=== PATIENT | female | born 2005 | race African-American/Black ===

== ENCOUNTER 2024-07-11 02:01 | Emergency (ER) | payer OTHER, SELFPAY ==
[2024-07-11 02:06] VITALS: BP 139/85; PULSE 87; RESP 18; TEMP 36.9; O2SAT 100
[2024-07-11 02:39] LABS: BEDSIDEPREGUCG Negative (Negative)
[2024-07-11 02:45] LABS: Basophils Absolute Auto 0.1 K/mm3 (0.0-0.1); Eosinophils Absolute Auto 0.2 K/mm3 (0-0.3); Eosinophils Percent Auto 3.8 % (0-4.4); Hematocrit 39.8 % (37.0-47.0); Hemoglobin 12.7 g/dL (12.0-15.0); Immature Granulocyte Absolute 0.01 K/mm3 (0.00-0.031); Immature Granulocyte Percent A 0.2 % (0-0.5); Lymphocytes Absolute Auto 1.59 K/mm3 (0.9-3.2); Lymphocytes Percent Auto 33.3 % (18.3-44.2); Mean Corpuscular HGB Conc 31.9 g/dl (32-36); Mean Corpuscular Hemoglobin 26.9 pg (26-34); Mean Corpuscular Volume 84.3 fl (80-100); Mean Platelet Volume 10.5 fl (7.4-10.4); Monocytes Absolute Auto 0.4 K/mm3 (0.1-0.6); Monocytes Percent Auto 8.2 % (2.6-8.5); Neutrophils Absolute Auto 2.6 K/mm3 (1.3-6.7); Neutrophils Percent Auto 53.5 % (45.5-73.1); Platelet Count Result 333 k/mm3 (150-375); Red Blood Count 4.72 M/mm3 (4.2-5.4); Red Cell Distribution Width 11.5 % (11.5-14.5); White Blood Count 4.8 K/mm3 (4.5-10.0)
[2024-07-11 02:48] LABS: Bacteria Urine 1+ /hpf; Non Pathogenic Casts 0-2; RBC Urine >100 /hpf (0-2); Squamous Epithelial Cell Urine Moderate /hpf (Few)
[2024-07-11 02:55] LABS: Alanine Aminotransferase 17 U/L (6-35); Albumin Level 4.9 g/dL (3.7-5.6); Alkaline Phosphatase 84 U/L (45-116); Anion Gap 7 mmol/L (4-12); Aspartate Amino Transferase 24 U/L (14-36); Bilirubin,Total 0.4 mg/dL (0.2-1.3); Blood Urea Nitrogen 16 mg/dL (8-21); Calcium 9.5 mg/dL (8.9-10.7); Carbon Dioxide 25 mmol/L (22-30); Chloride 106 mmol/L (98-107); Estimated CRCL calculation 70 ml/min; Estimated Glomerular Filt Rate > 60; Glucose 111 mg/dL (65-110); Potassium 3.9 mmol/L (3.4-5.0); Sodium 138 mmol/L (134-143)
[2024-07-11 03:03] LABS: Add Urine Microscopic? YES; Appearance Urine Turbid (Clear); Bilirubin Urine Negative (Negative); Blood Urine 3+ (Negative); Color Urine Orange (Yellow); Glucose Urine UA Negative (Negative); Ketones Urine Negative (Negative); Leukocyte Esterase Ur 1+ LEU/UL (Negative); Nitrate Urine Negative (Negative); Protein Urine 1+ mg/dL (Negative); Specific Grav Ur 1.033 (1.001-1.035)
--- NOTE | 2024-07-11 03:36 | ED.GENADULT ---
HPI - General Adult General Chief complaint: Vaginal Bleeding Stated complaint: period for 2 weeks with lg blood clots Time Seen by Provider: 07/11/24 02:26 History of Present Illness HPI narrative: Patient is a 18-year-old female who presents emergency department with chief complaint of vaginal bleeding for the last 2 weeks. The patient reports that she has irregular periods reports that she is not currently on control pills and reports that she has had difficulty regulating her cycle patient denies syncope reports that she has been going through a pad about every hour the patient reports she does not have a head of visual merchandising Related Data Allergies Allergy/AdvReac Type Severity Reaction Status Date / Time No Known Allergies Allergy Verified 07/11/24 02:37 Review of Systems Review of Systems: A 10 system review of systems was completed on the patient and is negative except for what is stated in the HPI. Nursing and ancillary documentation was reviewed. Exam Narrative: GENERAL: Well-appearing, well-nourished, and in no acute distress. HEAD: Normocephalic, atraumatic. EYES: PERRLA and EOMI. ENT: Nares clear, no rhinorrhea or epistaxis. Mucous membranes moist. NECK: Supple. CHEST: Clear to auscultation. No respiratory distress. HEART: Regular rate and rhythm. No murmur heard. Normal peripheral pulses. ABDOMEN: Soft, nontender, nondistended, normal active bowel sounds. EXTREMITIES: Normal range of motion. No edema. SKIN: Warm, dry, no rash. NEURO: No focal deficits. Alert and oriented x3. PSYCH: Normal mood and affect. Course Vital Signs Vital signs: Vital Signs Temperature 36.9 C 07/11/24 02:06 Pulse Rate 87 07/11/24 02:06 Respiratory Rate 18 07/11/24 02:06 Blood Pressure 139/85 07/11/24 02:06 Pulse Oximetry 100 07/11/24 02:06 Oxygen Delivery Room Air 07/11/24 02:06 Temperature 36.9 C 07/11/24 02:06 Pulse Rate 87 07/11/24 02:06 Respiratory Rate 18 07/11/24 02:06 Blood Pressure 139/85 07/11/24 02:06 Pulse Oximetry 100 07/11/24 02:06 Oxygen Delivery Room Air 07/11/24 02:06 Medical Decision Making [place] Narrative Medical decision making narrative: Differential diagnosis includes threatened miscarriage, , miscarriage, dysfunctional uterine bleeding The patient's test was negative The patient's hemoglobin was 12.7 urinalysis showed no evidence of UTI Patient will be discharged home to follow-up with OBGYN Vital Signs Vital Signs: Vital Signs Temperature 36.9 C 07/11/24 02:06 Pulse Rate 87 07/11/24 02:06 Respiratory Rate 18 07/11/24 02:06 Blood Pressure 139/85 07/11/24 02:06 Pulse Oximetry 100 07/11/24 02:06 Oxygen Delivery Room Air 07/11/24 02:06 Temperature 36.9 C 07/11/24 02:06 Pulse Rate 87 07/11/24 02:06 Respiratory Rate 18 07/11/24 02:06 Blood Pressure 139/85 07/11/24 02:06 Pulse Oximetry 100 07/11/24 02:06 Oxygen Delivery Room Air 07/11/24 02:06 Lab Data 07/11/24 02:40 07/11/24 02:40 Labs: Lab Results 07/11/24 07/11/24 07/11/24 Range/Units 02:37 02:38 02:40 WBC 4.8 (4.5-10.0) K/mm3 RBC 4.72 (4.2-5.4) M/mm3 Hgb 12.7 (12.0-15.0) g/dL Hct 39.8 (37.0-47.0) % MCV 84.3 (80-100) fl MCH 26.9 (26-34) pg MCHC 31.9 L (32-36) g/dl RDW 11.5 (11.5-14.5) % Plt Count 333 (150-375) k/mm3 MPV 10.5 H (7.4-10.4) fl Immature Gran % (Auto) 0.2 (0-0.5) % Neut % (Auto) 53.5 (45.5-73.1) % Lymph % (Auto) 33.3 (18.3-44.2) % [place] % (Auto) 8.2 (2.6-8.5) % Eos % (Auto) 3.8 (0-4.4) % Baso % (Auto) 1.0 (0.2-1.2) % Lymph # (Auto) 1.59 (0.9-3.2) K/mm3 [place] # (Auto) 0.4 (0.1-0.6) K/mm3 Eos # (Auto) 0.2 (0-0.3) K/mm3 Baso # (Auto) 0.1 (0.0-0.1) K/mm3 Abs Immat Gran (auto) 0.01 (0.00-0.031) K/mm3 Absolute Neuts (auto) 2.6 (1.3-6.7) K/mm3 Absolute Nucleated RBC 0.000 (0.0-0.012) K/mm3 Nucleated RBC % 0.0 (0.0-0.2) % Sodium 138 (134-143) mmol/L Potassium 3.9 (3.4-5.0) mmol/L Chloride 106 (98-107) mmol/L Carbon Dioxide 25 (22-30) mmol/L Anion Gap 7 (4-12) mmol/L BUN 16 (8-21) mg/dL Creatinine 0.90 (0.7-1.0) mg/dL Estim Creat Clear Calc 70 ml/min Estimated GFR > 60 (59 - ) Glucose 111 H (65-110) mg/dL Calcium 9.5 (8.9-10.7) mg/dL Total Bilirubin 0.4 (0.2-1.3) mg/dL AST 24 (14-36) U/L ALT 17 (6-35) U/L Alkaline Phosphatase 84 (45-116) U/L Total Protein 8.0 (6.3-8.6) g/dL Albumin 4.9 (3.7-5.6) g/dL Urine Color [place] H (Yellow) Urine Appearance Turbid H (Clear) Urine pH 6.0 (5.0-9.0) Ur Specific [place] 1.033 (1.001-1.035) Urine Protein 1+ H (Negative) mg/dL Urine Glucose (UA) Negative (Negative) mg/dL Urine Ketones Negative (Negative) mg/dL Ur Blood (Man) 3+ H (Negative) Urine Nitrate Negative (Negative) Urine Bilirubin Negative (Negative) Urine Urobilinogen 1.0 (<2.0) mg/dL Leukocyte Esterase Rfl 1+ H (Negative) BEA/UL Urine RBC >100 H (0-2) /hpf Urine WBC 6-10 H (0-3) /hpf Ur Squamous Epith Cells Moderate (Few) /hpf Urine Bacteria 1+ H /hpf Urine Casts 0-2 POC Urine HCG, Qual Negative (Negative) Discharge Plan Discharge Clinical Impression: Dysfunctional uterine bleeding Patient Disposition: Home, Self-Care Condition: Stable Instructions: Antibiotic Form, Abnormal (Dysfunctional) Uterine Bleeding (ED) Patient Language: Macanese Follow-up/Referrals: PHYSICIAN,HUSBANDRY PERSON [Primary Care Provider] - Mitch Taylor MD [Physician] - Rafi Briseno MD [Physician] - Time of Disposition: 03:38
--- OUTSIDE RECORDS SUMMARY | 2024-07-18 03:58 | XMS_ITS | Encounter Summary ---
Author Organization [facility] Address [address] [place] [address] Care Team Providers Care Director [employer] Name Role Phone Va Olivo MD Primary Care Provider Reason for Visit * Reason Onset Date Comments MEDICATION REFILL 03/18/2023 Encounter Details Date Type Department Care Team (Late st Contact Info) Description 03/18/2023 Refill [facility] [address] , [address] [place] [address] Va Olivo MD [phone] [place] [address] MEDICATION REFILL Social History Tobacco Use Types Packs/Day Years Used Date Smoking Tobacco: Never Smokeless Tobacco: Never Alcohol Use Standard Drinks/Week Comments Never 0 (1 standard drink = 0.6 oz pur e alcohol) PHQ-2 Answer Date Recorded Patient Health Questionnaire-2 Score 2 12/24/2022 Sex and Gender Information Value Date Recorded Sex Assigned at Not on file Gender Identity Not on file Sexual Orientation Not on file documented as of this encounter Miscellaneous Notes * Telephone Encounter - Heather Sampson RN - 03/18/2023 11:31 AM CDT Last seen 01/03/23 Last filled: 01/01 documented in this encounter Plan of Treatment Not on file documented as of this encounter Goals Goal Patient Goal Type Associated Problems Recent Progress Patient-Stated? Author Yearly PCP visit Lifestyle No Aster Garnica RN Note: Come into office for yearly wcc. Take recommended medication(s) Lifestyle No Aster Garnica RN documented as of this encounter Visit Diagnoses Diagnosis Mild intermittent asthma without complication (HCC) Unspecified asthma documented in this encounter Care Teams Director [employer] Relationship Specialty Start Date End Date Va Olivo MD PCP - General Pediatrics 12/08/17 documented as of this encounter
--- OUTSIDE RECORDS SUMMARY | 2024-07-18 03:58 | XMS_ITS | Encounter Summary ---
Author Organization [facility] Address [address] [place] [address] Care Team Providers Care Publication Designer Name Role Phone Va Olivo MD Primary Care Provider [phone] Reason for Visit * Reason Comments Well Child Check Sports Physical Encounter Details Date Type Department Care Team (Latest Contact Info) Description 12/24/2022 8:29 AM CDT - 12/24/2022 9:55 AM T Hospital Encounter [facility] [address], [address] [place] [address] Gillian Casillas, PIPE BUFFER-POT FISHER [address] [place] [address] Discharge Disposition: Home or Self Care Social History Tobacco Use Types Packs/Day Years [...] on file Sexual Orientation Not on file COVID-19 Exposure Response Date Recorded In the last 10 days, have yo u been in contact with someone who was confirmed or suspected to have Coronavirus/COVID-19? No / Unsure 12/01/2022 1:28 PM CDT documented as of this encounter Last Filed Vital Signs Vital Sign Reading Time Taken Comments Blood Pressure 125/87 12/24/2022 8:48 AM CDT Pulse 65 12/24/2022 8:48 AM CDT Temperature 36.5 ??C (97.7 ??F) 12/24/2022 8:48 AM CD T Respiratory Rate 18 12/24/2022 8:48 AM CDT Oxygen Saturation 99% 12/24/2022 8:48 AM CDT Inhaled Oxygen Concentration - - Weight 56.2 kg (124 lb) 12/24/2022 8:48 AM CDT Height 160 cm (5' 3 ) 12/24/2022 8:48 AM CDT Body Mass Index 21.97 12/24/2022 8:48 AM CDT Body Mass Index Percentile 57.98% 12/24/2022 8:4 8 AM CDT Growth Chart: [facility] (Girls, 2- 20 Years) documented in this encounter Discharge Instructions * Patient Instructions* Gillian Casillas APRN-POT FISHER - 12/24/2022 9:09 AM CDT Images from the original note were not included. Psychology Resources [facility], . They accept most private insurance, [employer]State and [facility] Medicaid - they can get patients in in 24- 48 hours and no referral is needed Psychology at [facility], no referral needed, - appt time about 1-2 months Psychology at [facility], no referral needed, , appt time about 1-2 months [facility]: [phone] [facility] Gayle Shepard [facility] [place] [address] Serves [facility] Ages 4-19 Medicaid: No Private Insurance: No Roxana only for [facility] residents - FREE In-home [facility]: [phone] [place] [address] Serves [facility], [facility], and [facility] Ages 2-18 Medicaid: Yes Private Insurance: Yes Roxana available Outpatient therapy / In-home [facility]: [phone] [address] [place] [address] Serves [facility] Ages 5-18 Medicaid: Yes Private Insurance: Yes Sliding scale Outpatient therapy / psychiatry / school-based [facility] [phone] [facility] [phone] [facility] [phone] [facility] [phone] ext. [phone] Free Crisis Hotline Behavioral Health Resources 02/02 [facility] Intake: [address] [place] [address] [place], [place] [address] [address] [place] [address] [address] [place] [address], [place] [id number] Serves [facility], [facility], and [facility] Ages 4-18 Medicaid: Yes Private Insurance: No Outpatient therapy / psychiatry / in-home / school-based [facility]: [phone] Dr. Pacheco, child and adolescent psychiatry: [phone] or [phone] [facility] Child and Adolescent Psychiatry - [address] [facility], [address] [place] [address] [facility] [phone] - [facility] Children's Help Line for Parents: Project Safety Net Parents seeking advice about issues related to kids of all ages are encouraged to call our free parent helpline at [phone]. This is a free service of [place] [facility] that helps parents understand more about the mental development of their child. The phone line is staffed by professionals offering assistance to parents on a wide range of issues. [facility] Pediatric Behavioral Health [phone] Psychology, Therapy, Psychiatry, and psychological testing/treatment. [facility] [address] [address] www.[employer] [phone] Parenting education, self-help, counseling and more. [facility] [address] [place] [address] www.[facility] [phone] Children, adolescent and adult mental health and substance abuse programs that include medication assisted therapy, as well as individual and group approaches and intensive outpatient programs. [facility] [address] [facility] [address] www.[email or web address] [phone] Prevention and treatment of all forms of child abuse and neglect. Recently united with [facility]. Family-centered therapeutic, educational, and support services. Coverage now in [facility] and [facility]. [facility] [address] [address] www.[facility].org [phone] [facility] provides therapy, counseling and an assortment of programs for adults and children with afull range of emotional and behavioral issues. Fees are based on a sliding scale and available to all. [facility] At [address] [address] www.[facility] [phone] A mental health practice that assesses and treats mental/behavioral health disorders in adults and children, in addition to community education and training. Provides treatment in mood disorders (depression, bipolar disorders); attention deficit/hyperactivity disorder; anxiety and trauma-related disorders; school and relationship problems; attachment; loss/grief; and diagnostic clarification. Several sources of funding and payment options, including Medicaid, private insurance, main campus medical center and [facility] Children[facility]s Services Funds, and sliding fee scale. [employer] [facility] [address] [place] [address] [address] [place] [address] www.[employer].[facility].com/ Behavioral health care services for children, adolescents, adults and older adults and their families. Services include outpatient programs, partial hospitalization, office and telehealth treatment for a wide range of disorders. [facility] Several locations. Check website. www.[facility].org/ [phone] ([phone]) Mental health and counseling services in addition to adoption, foster care and assistance. [facility] [address] [place] [address] (New address) www.[facility].org [phone] [employer] Payee Program [phone]. Offers Mental Health Wellness Seminars for staff and clients at organizations and businesses; provides [employer] Payee services to manage SSI/SSDI benefits; delivers Parent Coaching sessions as part of the agency's PEACE (Preventing the Effects of Adverse Childhood Experiences) program; website contains educational information, linkage to support groups of all kinds, medication assistance programs, clinical trials for mental health conditions, and more. [facility] [address] [place] [address]. [address] www.[facility].org/organizations/hufak-kvdym-bomfwcxrhe/ [phone] Professional counseling and psychiatric services.or families and children of all backgrounds. Operates eight offices throughout the area, in addition to its School Partnership Program (SPP),which provides onsite services to students at more than 100 schools as well as children who are homeless living at area shelters. Operated by [employer]. [facility] [address] [place] [address]. [address] www.[facility].org/ [phone] Trauma-informed evidence-based mental health services to individuals and families. [facility] provides outpatient therapy, including Dialectical Behavior Therapy (DBT), Community-Based Crisis Stabilization Services and organizational trainings. [employer] [address] [address] www.[facility] [phone] Provides integrated mental health services to children and adults who have experienced trauma, depression and anxiety, regardless of ability to pay. Parental Conflict Assistance [facility] [address] [place] [address] www.[email or web address] [phone] Confidential and private mediations for a variety of family and relationship conflicts, in additionto parenting plans, tenant-landlord, community, and small business disputes. Online mediation available. Referrals from other agencies welcome. [facility] Main Location: [address] [place] [address] www.[email or web address] [phone] Now working with women and families. Job readiness and retention skills, as well as a legal clinic,youth leadership and 'The Family Formation'. [address], [employer] [place] [address] Call Shirin Williams [facility] Appointment number: [phone] 4 locations ([facility], [facility]) Children (under 18) who are [facility] residents-12 free session under [facility] Children???s Service Fund evelyn (Client can be reevaluated at that 12 and likely approved for more sessions) Youth In Need Individual/Group/Family [facility] [phone] and [facility] [phone] Free to [facility] and [facility] youth under grants [facility] Center for Behavioral Health [phone] Individual, family Psychological evaluations (Autism) Free for [facility] Youth under 20 (https://www.[facility]/cb/Fees.html) [facility] intake@[facility].org or [phone] Free to many under various residency grants [facility] [place] Intake line: [phone] Accepts lots of insurance including good variety of commercial OCD & Anxiety IOP, Eating Disorder IOP, DBT, Gender affirming, psychological testing, individual, family, psychiatry [facility] [phone] (ask for software applications specialist) [facility] [address] [facility] youth free services under evelyn, also offer low/no cost for those not evelyn eligible [facility] provides diagnostic assessments; Counseling; Psychiatry [place] [facility] 8 locations: Ernesto Murphy Office: [phone] Dhruv Office: [phone] [place]: [phone] [place], [place]: [phone] MEAGAN Carpio: [phone] [place]: [phone] [facility]: [phone] YOUR GROWING CHILD: FIFTEEN to EIGHTEEN YEARS Child???s Name: Greyson Kevin Today???s Date: 12/24/2022 Wt Readings from Last 2 Encounters: 12/24/22 56.2 kg (124 lb) (50 %, Z= -0.01)* 09/09/22 57.6 kg (127 lb) (57 %, Z= 0.17)* * Growth percentiles are based on CDC (Girls, 2-20 Years) data. Ht Readings from Last 2 Encounters: 12/24/22 1.6 m (5' 3 ) (31 %, Z= -0.48)* 09/09/22 1.61 m (5' 3.39 ) (37 %, Z= -0.32)* * Growth percentiles are based on CDC (Girls, 2-20 Years) data. If you need to reach a manager community outreach after normal business hours, please call our After Hours number at IMMUNIZATIONS Your child may receive vaccines today. Please see our current immunization schedule for upcoming immunizations. AGE of YOUR CHILD IMMUNIZATIONS 16 YEARS Menactra (Meningococcal) #2 (final) (complete Gardasil series if not complete) Yearly Influenza vaccine HPV vaccine is 3 doses; 2nd dose is 1-2 months after first dose and 3rd dose is 6 months after the first dose DEVELOPMENT At this age, many girls have completed the physical changes associated with puberty, and most boys are continuing to gain height and muscle mass, along with completing the other physical changes associated with puberty. Sexual feelings are normal but reinforce with your child the importance of delaying sexual behavior. Teach him/her how to say no to sex. If your child is sexually active, discuss the importance of practicing safe sex and the health consequences of unprotected sex, such as and sexually transmitted diseases (including HIV/AIDS). The adolescent???s peer group continues to be very important to him/her. Regularly talk with your child about the consequences of drinking, smoking, drugs, inhalants, and especially drinking and driving. It is important to support and enhance your child???s self-esteem and self-confidence, as children who feel better about themselves are more likely to withstand peer pressure. Spend time with your child, show affection, praise his/her efforts and accomplishments, support his/her interests, and keep up with your child???s schoolwork and social experience in school. Communicate with your child???s teachers regularly, especially if there are concerns or questions. Stress the importance of school to your teenager and begin to discuss your child???s interest and goals for after high school. Encourage your child to be engage in regular physical activity and limit nonacademic screen time toless than 2 hours a day. This is also a good age for increasing your child???s responsibilities by allowing your child to share in (or continuing to share in) leather cartridge belt maker. Also increase awareness about community issues and needs. However, if your teen has an after school job, limit the hours so your child can maintain a healthy balance between school, work, and extracurricular activities. Continue to teach good hygiene and make sure your child gets enough sleep. At this age most children require 8 to 10 hours of sleep per night. DIET Continue to offer 3 healthy meals a day and stress the importance of breakfast. Teach your child how to choose appropriate foods to eat a balanced diet. Parents and other family members have the mostinfluence on children???s eating behavior and attitudes toward food. Be a positive role model by having nutritious foods available at home, and eating them yourself. Continue to encourage vegetables, fruits, whole grains, and low fat dairy products. If your child does not drink milk, provide other calcium-rich foods such as calcium-fortified orange juice, yogurt, cheese, broccoli, and turnip greens. Avoid having junk food, high calorie food, and soda available at home. DISCIPLINE Adolescents can present a challenge for their parents, as they frequently test your limits and question authority. Rules should be clear and consequences for unacceptable behavior should be enforced consistently. Your adolescent is maturing rapidly but still does not have the experience and judgment of an adult. Continue to be actively involved in your child???s life, providing loving parenting, appropriate limits, and respect for authority. Teach respect for authority, how to resolve conflicts, and how to handle anger appropriately. Most importantly, be a good role model! [employer] BRIGHT FUTURES HANDOUT - PARENT 15 THROUGH 17 YEAR VISITS Here are some suggestions from [employer] experts that may be of value to your family. HOW YOUR FAMILY IS DOING YOUR TEEN'S FEELINGS Set aside time to be with Greyson and really listen to her hopes and concerns. Support Greyson in finding activities that interest her. Encourage Greyson to help others in the community. Help Greyson find and be a part of positive after-school activities and sports. Support Greyson as she figures out ways to deal with stress, solve problems, and make decisions. Help Greyson deal with conflict. If you are worried about your living or food situation, talk with us. Community agencies and programs such as [employer] can also provide information and assistance. If you are concerned that Greyson is sad, depressed, nervous, irritable, hopeless, or angry, let usknow. If you have questions about Greyson's sexual development, you can always talk with us. YOUR GROWING AND CHANGING TEEN HEALTHY BEHAVIOR CHOICES Make sure Greyson visits the dentist at least twice a year. Give Greyson a fluoride supplement if the dentist recommends it. Support Rupas healthy body weight and help her be a healthy eater. - Provide healthy foods. - Eat together as a family. - Be a role model. Help Greyson get enough calcium with low-fat or fat-free milk, low-fat yogurt, and cheese. Encourage at least 1 hour of physical activity a day. Praise Greyson when she does something well, not just when she looks good. Know Greyson's friends and their parents. Be aware of where she is and what she is doing at all times. Talk with Greyson about your values and your expectations on drinking, drug use, tobacco use, driving, and sex. Praise Greyson for healthy decisions about sex, tobacco, alcohol, and other drugs. Be a role model. Know Greyson's friends and their activities together. Lock your liquor in a cabinet. Store prescription medications in a locked cabinet. Be there for Greyson when she needs support or help in making healthy decisions about her behavior. SAFETY Encourage safe and responsible driving habits. - Lap and shoulder seat belts should be used by everyone. - Limit the number of friends in the car and ask Greyson to avoid driving at night. 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 - Do not tolerate drinking and driving. If it is necessary to keep a gun in your home, store it unloaded and locked with the ammunition locked separately from the gun. Consistent with Bright Futures: Guidelines for Health Supervision of Infants, Children And Adolescents, 4th Edition For more information, go to https://brightfutures.aap.org. The information contained in this handout should not be used as a substitute for true medical care and advice of your manager community outreach. There may be variations in treatment that your manager community outreach may recommend based on individual facts and circumstances. Original handout included as part of the Bright Futures Tool and Resource Kit, 2nd Edition. Inclusion in this handout does not imply an endorsement by the [employer] (AAP). The AAP is not responsible for the content of the resources mentioned in this handout. Web site addresses are as current as possible but may change at any time. The [employer] (AAP) does not review or endorse any modifications made to this handout and in no event shall the AAP be liable for any such changes. ?? 2019 [employer]. All rights reserved. [employer] Bright Futures https://brightfutures.aap.org [employer] BRIGHT FUTURES HANDOUT for Journey 15 THROUGH 17 YEAR VISITS Here are some suggestions from [employer] experts that may be of value to you and your family. HOW YOU ARE DOING YOUR FEELINGS Enjoy spending time with your family. Look for ways you can help at home. Find ways to work with your family to solve problems. Follow your family's rules. Form healthy friendships and find fun, safe things to do with friends. Set high goals for yourself in school and activities and for your future. Try to be responsible for your schoolwork and for getting to school or work on time. Find ways to deal with stress. Talk with your parents or other trusted adults if you need help. Always talk through problems and never use violence. If you get angry with someone, walk away if you can. Call for help if you are in a situation that feels dangerous. Healthy dating relationships are built on respect, concern, and doing things both of you like to do. When you're dating or in a sexual situation, ???No?? means NO. NO is OK. Don't smoke, vape, use drugs, or drink alcohol. Talk with us if you are worried about alcohol or drug use in your family. Be proud of yourself when you do something good. Figure out healthy ways to deal with stress. Develop ways to solve problems and make good decisions. It's OK to feel up sometimes and down others, but if you feel sad most of the time, let us know so we can help you. It's important for you to have accurate information about sexuality, your physical development, andyour sexual feelings toward the opposite or same sex. Please consider asking us if you have any questions. YOUR DAILY LIFE HEALTHY BEHAVIOR CHOICES Visit the dentist at least twice a year. [place] your teeth at least twice a day and floss once a day. Be a healthy eater. It helps you do well in school and sports. - Have vegetables, fruits, lean protein, and whole grains at meals and snacks. - Limit fatty, sugary, and salty foods that are low in nutrients, such as candy, chips, and ice cream. - Eat when you're hungry. Stop when you feel satisfied. - Eat with your family often. - Eat breakfast. Drink plenty of water. Choose water instead of soda or sports drinks. Make sure to get enough calcium every day. Have 3 or more servings of low-fat (1%) or fat-free milk and other low-fat dairy products, such as yogurt and cheese. Aim for at least 1 hour of physical activity every day. Wear your mouth guard when playing sports. Get enough sleep. Choose friends who support your decision to not use tobacco, alcohol, or drugs. Support friends whochoose not to use. Avoid situations with alcohol or drugs. Don't share your prescription medicines. Don't use other people's medicines. Not having sex is the safest way to avoid and sexually transmitted infections (STIs). Plan how to avoid sex and risky situations. If you're sexually active, protect against and STIs by correctly and consistently using control along with a condom. Protect your hearing at work, home, and concerts. Keep your earbud volume down. 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 - Insist that everyone use a lap and shoulder seat belt. - Limit the number of friends in the car and avoid driving at night. - Avoid distractions. Never text or talk on the phone while you drive. Do not ride in a vehicle with someone who has been using drugs or alcohol. - If you feel unsafe driving or riding with someone, call someone you trust to drive you. Wear helmets and protective gear while playing sports. Wear a helmet when riding a bike, a motorcycle, or an ATV or when skiing or skateboarding. Wear a life jacket when you do water sports. Always use sunscreen and a hat when you're outside. Fighting and carrying weapons can be dangerous. Talk with your parents, teachers, or doctor about how to avoid these situations. Consistent with Bright Futures: Guidelines for Health Supervision of Infants, Children And Adolescents, 4th Edition For more information, go to https://brightfutures.aap.org. The information contained in this handout should not be used as a substitute for the medical care and advice of your manager community outreach. There may be variations in treatment that your manager community outreach may recommend based on individual facts and circumstances. Original handout included as part of the Bright Futures Tool and Resource Kit, 2nd Edition. Inclusion in this handout does not imply an endorsement by the [place] [employer] (AAP). The AAP is not responsible for the content of the resources mentioned in this handout. Web site addresses are as current as possible but may change at any time. The [place] [employer] (AAP) does not review or endorse any modifications made to this handout and in no event shall the AAP be liable for any such changes. ?? 2019 [employer]. All rights reserved. [employer] Bright Futures https://brightfutures.aap.org documented in this encounter Medications at Time of Discharge Medication Sig Dispensed Refills Start Date End Date LESSINA-28 0.1-20 MG-MCG tabletIndications:Contra ceptive Therapy,irregular periods Take 1 (one) tablet by mouth once daily Reasons: Control Treatment, irregular periods 1 packet 12 04/14/2022 albuterol HFA (ProAir HFA) 108 (90 Base) MCG/ACT inhalerIndications:Mild intermittent asthma without complication (HCC) INHALE 2 PUFFS BY MOUTH EVERY 4 HOURS NEEDED FOR WHEEZING OR COUGH; USE WITH SPACER 8 g 3 04/29/2022 03/18/2023 documented as of this encounter Progress Notes * aJzmín Casillasn, [employer] FISHER - 12/24/2022 8:59 AM CDT Images from the original note were not included. 17 year old HCY Interval History: Greyson Kevin is a 17 year old female who is accompanied to today's visit by Mom for a 17 year old checkup Parental/Patient Concerns: None Recent visits to Hospital / ER/ Urgent Care: No Current Medications: Current Outpatient Medications Medication Sig Dispense Refill ??? albuterol HFA (ProAir HFA) 108 (90 Base) MCG/ACT inhaler INHALE 2 PUFFS BY MOUTH EVERY 4 HOURS NEEDED FOR WHEEZING OR COUGH; USE WITH SPACER 8 g 3 ??? LESSINA-28 0.1-20 MG-MCG tablet Take 1 (one) tablet by mouth once daily Reasons: Control Treatment, irregular periods 1 packet 12 No current facility-administered medications for this encounter. Allergies: To Medications: NONE/ SEE BELOW No Known Allergies To Foods: None To Insects/Stings: None NEW MEDICATIONS AND ALLERGIES IDENTIFIED AND RECONCILED IN CHART Yes PAST MEDICAL HISTORY / ONGOING MEDICAL PROBLEMS Patient Active Problem List Diagnosis Date Noted ??? Influenza B 09/09/2022 Priority: Not Prioritized ??? Queen splints 11/29/2021 Priority: Not Prioritized ??? Poor sleep hygiene 11/29/2021 Priority: Not Prioritized ??? Mild intermittent asthma without complication 02/17/2019 Priority: Not Prioritized ??? History of syncope 12/21/2014 Priority: Not Prioritized ANY PROBLEMS IDENTIFIED AND ADDRESSED Yes TB Exposure Risk: living with someone who has been: -living on the street, homeless or intermediate -recently released from a assisted, assisted, or senior care -known to have tuberculosis, AIDS or is immunocompromised -comes from or has visited an area known to have tuberculosis -abuses drugs or is an IV drug user -is a migrant take away attendant -or has had a positive PPD or TB test No Family History: Unchanged from Initial Visit Discussion Yes No newly diagnosed high cholesterol, heart attacks, strokes, diabetes, asthma, in parents, grandparents, aunts, uncles, siblings Reviewed and non-contributory Social History: Lives with mom, dad, sibling , Father is - Known and Involved Pets: No Smokers Inside or Outside House: No If YES, then I discussed cessation, benefits to wallet AND health, setting example for children. SCHOOL: Grade: just finished 12 grade Going to [employer] to study pre law HIGH RISK BEHAVIORS: - Cigarettes, tobacco, vaping - Alcohol - Drugs - Sexually active ANY PROBLEMS IDENTIFIED AND ADDRESSED Yes PHQ-9 Score: 7 LIVING WITH YOUNG ADULT: Sleeping: has trouble falling asleep - bedwetting No - gasping for air at night No - through the night - own bedroom - good bedtime routine - TV in bedroom - discussed - TV/Phone/computer in bedroom -Yes discussed issue associated with sleep problems ANY PROBLEMS IDENTIFIED AND ADDRESSED Yes Nutrition: good eater, can be picky - milk (16-24 oz per day) Discussed Calcium substitutes - fruits - meat - veggies - wide variety is advisable- introduce new flavors - limit juice and soda ANY PROBLEMS IDENTIFIED AND ADDRESSED Yes Output: Urine: Dysuria, foul odor, urgency-No Stool: Constipation- No Diarrhea- No Soft stools regularly- Yes ANY PROBLEMS IDENTIFIED AND ADDRESSED Yes Dental: - brush teeth twice per day, use floss daily - fluoride containing tooth paste - flossing - has a regular dentist - 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 ANY PROBLEMS IDENTIFIED AND ADDRESSED Yes Hearing and Vision: Hearing Screening Method: Otoacoustic emissions Right ear Left ear Comments: Right: Pass OAE Left:Pass OAE Vision Screening Right eye Left eye Both eyes Without correction With correction 20/25 20/25 20/25 Hearing: Parental perception of hearing is normal, Examined with otoscope- yes Passed Hearing screening today- Yes Vision: Parental/child perception of vision is normal Normal pupillary response /red reflex / tracking / ocular movement Passed vision screening today- Yes ANY PROBLEMS IDENTIFIED AND ADDRESSED Yes Developmental Milestones: Social / Communication: MINIMAL - Follows rules at school - Follows rules at home Plans for after High School ANY PROBLEMS IDENTIFIED AND ADDRESSED Yes Fine / Gross Motor: Level of activity- Normal and Active- Likes dance and track ANY PROBLEMS IDENTIFIED AND ADDRESSED Yes Menstrual History: Female Yes If yes, then Menarche age 12 years LMP: 0 wks ago (0=now) Every 28-32 (about) Days Lasting 3-4 Days PHYSICAL EXAM: Patient was appropriately unclothed for exam. Vitals: Patient Vitals for the past 24 hrs: BP Temp Temp src Pulse Resp SpO2 Height Weight 12/24/22 0848 125/87 97.7 ??F (36.5 ??C) Axillary 65 18 99 % 1.6 m (5' 3 ) 56.2 kg (124 lb) Height: 31 %ile (Z= -0.48) based on [facility] (Girls, 2-20 Years) Hymyhby-rfc-rgb data based on Stature recorded on 12/24/2022. Weight: 50 %ile (Z= -0.01) based on CDC (Girls, 2-20 Years) qneoln-gka-wvv data using vitals from 12/24/2022. BMI: 58 %ile (Z= 0.20) based on CDC (Girls, 2-20 Years) BMI-for-age based on BMI available as of 12/24/2022. General Appearance: Alert, active, Skin: No rash Clear, moist No bruising or scars Head/Neck: Normocephalic Eyes: Sclera white and clear Red reflex bilaterally EOMi Ears, Nose and Throat: TM's flat and rodrigues bilaterally with sharp light reflex No nasal discharge with normal turbinates Full ROM without neck masses, Normal Cervical lymph nodes Teeth: No cavities Normal dentition Thorax: No retractions Lungs: Clear and equal to auscultation bilaterally Good air movement without wheezes or crackles Heart: Regular rate and rhythm No murmurs Abdomen: Soft Non-tender Non-distended No masses Normoactive bowel sounds Genitalia Female Genitalia Normal external female genitalia Breast- Lucio- V Pubic Hair- Lucio- V Trunk and Spine: Grossly intact Straight NO Scoliosis Extremities: Moving all extremitites well Normal gait and strength + single leg hop, + duck walk Yes Reflexes: Normal tone Good and equal patellar reflexes RESULTS: No results found for this or any previous visit (from the past 72 hour(s)). ASSESSMENT / EDUCATION / PLAN: ICD-10-CM 1. Encounter for well child examination without abnormal findings Z00.129 2. Hearing screen passed Z01.10 HEARING SCREEN 3. Encounter for vision screening Z01.00 VISUAL ACUITY SCREENING Greyson had a score of 9 (Arnold Diego RN) on the PHQ Depression Screening. As a follow-up, counseling was provided. I spent 5 minutes reviewing and discussing this with Greyson. Well check -normal exam except as noted. Growth normal. Development normal - Well Child Check- Normal 17 year old - Anticipatory Guidance Given - no smoking - pool safety / swimming - smoke detector - discussed drinking/driving/calling parents - guns in house...safety discussed PARENTS: KNOW YOUR CHILD'S BEST FRIEND AND PARENTS - Immunizations: - vaccine refusal No - Feeding / Nutrition: - continue with milk 16-24 oz /day - wide variety OK, No appropriate sized foods off limits - water for thirst - limit juice/sugary drinks ORDERS: No orders of the defined types were placed in this encounter. Active Orders Nursing HEARING SCREEN Frequency: ONCE Number of Occurrences: 1 Occurrences VISUAL ACUITY SCREENING Frequency: ONCE Number of Occurrences: 1 Occurrences FOLLOW UP AT: 19 / 20 year well child check up, sooner for illnesses / questions Time to think about going to an adult doctor Patient Instructions Psychology Resources [facility], . They accept most private insurance, HomeState and [facility] Medicaid - they can get patients in in 24- 48 hours and no referral is needed Psychology at [facility], no referral needed, - appt time about 1-2 months Psychology at [facility], no referral needed, , appt time about 1-2 months [facility]: [phone] [facility] [place] [address] ?? Serves [facility] ?? Ages 4-19 ?? Medicaid: No ?? Private Insurance: No ?? Roxana only for [facility] residents - FREE ?? In-home [facility]: [phone] [place] [address]. [place] [address] ?? Serves [facility], [facility], and [facility] ?? Ages 2-18 ?? Medicaid: Yes ?? Private Insurance: Yes ?? Roxana available ?? Outpatient therapy / In-home [facility]: [phone] [address] [place] [address] ?? Serves [facility] ?? Ages 5-18 ?? Medicaid: Yes ?? Private Insurance: Yes ?? Sliding scale ?? Outpatient therapy / psychiatry / school-based [facility] [phone] [facility] [phone] [facility] [phone] [facility] [phone] ext. [phone] Free Crisis Hotline Behavioral Health Resources 02/02 [facility] Intake: [address] [place] [address] [place], [place] [address] [address] [facility] [place] [address] [address] [place] [address] [address], [place] [address] ?? Serves [facility], [facility], and [facility] ?? Ages 4-18 ?? Medicaid: Yes ?? Private Insurance: No ?? Outpatient therapy / psychiatry / in-home / school-based [facility]: [phone] Dr. Pacheco, child and adolescent psychiatry: [phone] or [phone] [facility] Child and Adolescent Psychiatry - [address] [facility], [address] [place] [address] [facility] Children[facility] Psych[facility] Center [phone] [facility] Children's Help Line for Parents: Project Safety Net Parents seeking advice about issues related to kids of all ages are encouraged to call our free parent helpline at [phone]. This is a free service of [facility] that helps parents understand more about the mental development of their child. The phone line is staffed by professionals offering assistance to parents on a wide range of issues. [facility] Pediatric Behavioral Health [phone] Psychology, Therapy, Psychiatry, and psychological testing/treatment. [facility] [address] [address] www.[employer] [phone] Parenting education, self-help, counseling and more. [facility] [address] [place] [address] www.alternativebehavioralcareenModus [phone] Children, adolescent and adult mental health and substance abuse programs that include medication assisted therapy, as well as individual and group approaches and intensive outpatient programs. [facility] [address] [facility] [address] www.[email or web address] [phone] Prevention and treatment of all forms of child abuse and neglect. Recently united with [facility]. Family-centered therapeutic, educational, and support services. Coverage now in [facility] and [facility]. [facility] [address] [address] www.[facility].org [phone] [facility] provides therapy, counseling and an assortment of programs for adults and children with afull range of emotional and behavioral issues. Fees are based on a sliding scale and available to all. [facility] At [facility] [address] [facility] [place] [address] www.[facility] [phone] A mental health practice that assesses and treats mental/behavioral health disorders in adults and children, in addition to community education and training. Provides treatment in mood disorders (depression, bipolar disorders); attention deficit/hyperactivity disorder; anxiety and trauma-related disorders; school and relationship problems; attachment; loss/grief; and diagnostic clarification. Several sources of funding and payment options, including Medicaid, private insurance, main campus medical center and [facility] Children[facility]s Services Funds, and sliding fee scale. [facility] Formerly [address], [address] [place] [address] [place] [address], [address] [place] [address] www.[employer].[facility] hospital[facility].Gyros/ Behavioral health care services for children, adolescents, adults and older adults and their families. Services include outpatient programs, partial hospitalization, office and telehealth treatment for a wide range of disorders. [facility] Several locations. Check website. www.[email or web address]/ [phone] ([phone]) Mental health and counseling services in addition to adoption, foster care and assistance. [facility] [address] [place] [address] (New address) www.[email or web address] [phone] [employer] Payee Program [phone]. Offers Mental Health Wellness Seminars for staff and clients at organizations and businesses; provides [employer] Payee services to manage SSI/SSDI benefits; delivers Parent Coaching sessions as part of the agency's PEACE (Preventing the Effects of Adverse Childhood Experiences) program; website contains educational information, linkage to support groups of all kinds, medication assistance programs, clinical trials for mental health conditions, and more. [facility] [address] [place] [address]. [address] www.[facility].org/organizations/ebncb-gbwux-xpzumygsvr/ [phone] Professional counseling and psychiatric services.or families and children of all backgrounds. Operates eight offices throughout the area, in addition to its School Partnership Program (SPP),which provides onsite services to students at more than 100 schools as well as children who are homeless living at area shelters. Operated by [employer]. [facility] [address] [place] [address]. [address] www.[facility].org/ [phone] Trauma-informed evidence-based mental health services to individuals and families. [facility] provides outpatient therapy, including Dialectical Behavior Therapy (DBT), Community-Based Crisis Stabilization Services and organizational trainings. [address] [address] www.[facility] [phone] Provides integrated mental health services to children and adults who have experienced trauma, depression and anxiety, regardless of ability to pay. Parental Conflict Assistance [facility] [address] [place] [address] [email or web address] [phone] Confidential and private mediations for a variety of family and relationship conflicts, in additionto parenting plans, tenant-landlord, community, and small business disputes. Online mediation available. Referrals from other agencies welcome. [facility] Main Location: [address] [place] [address] [email or web address] [phone] Now working with women and families. Job readiness and retention skills, as well as a legal clinic,youth leadership and 'The [place] [address] Call Shirin Kramer [facility] ? Appointment number: [phone] ? 4 locations ([facility], [facility]) ? Children (under 18) who are [facility] residents-12 free session under [facility] Children???s Service Fund evelyn (Client can be reevaluated at that 12 and likely approved for more sessions) Youth In Need ? Individual/Group/Family ? [facility] [phone] and [facility] [phone] Free to [facility] and [facility] youth under grants [facility] Center for Behavioral Health ? [phone] ? Individual, family ? Psychological evaluations (Autism) Free for [facility] Youth under 20 ([email or web address]://www.[facility]/cb/[email or web address]) [facility] ? [email or web address] or [phone] ? Free to many under various residency grants [facility] [place] ? Mustapha Leonardo, [place], [place] ? Intake line: [phone] ? Accepts lots of insurance including good variety of commercial OCD & Anxiety IOP, Eating Disorder IOP, DBT, Gender affirming, psychological testing, individual, family, psychiatry [facility] ? [phone] (ask for software applications specialist) ? [facility] [address] ? [facility] youth free services under evelyn, also offer low/no cost for those not evelyn eligible [facility] provides diagnostic assessments; Counseling; Psychiatry [facility] 1. 8 locations: - [place] Office: [phone] - [place] Office: [phone] - [place]: [phone] - [place]???[place] Farah: [phone] - [place]AG[place] Carpio: [phone] - [place]: [phone] [facility]: [phone] YOUR GROWING CHILD: FIFTEEN to EIGHTEEN YEARS Child???s Name: [facility] [place] Today???s Date: 12/24/2022 Wt Readings from Last 2 Encounters: 12/24/22 56.2 kg (124 lb) (50 %, Z= -0.01)* 09/09/22 57.6 kg (127 lb) (57 %, Z= 0.17)* * Growth percentiles are based on CDC (Girls, 2-20 Years) data. Ht Readings from Last 2 Encounters: 12/24/22 1.6 m (5' 3 ) (31 %, Z= -0.48)* 09/09/22 1.61 m (5' 3.39 ) (37 %, Z= -0.32)* * Growth percentiles are based on CDC (Girls, 2-20 Years) data. If you need to reach a manager community outreach after normal business hours, please call our After Hours number at IMMUNIZATIONS Your child may receive vaccines today. Please see our current immunization schedule for upcoming immunizations. AGE of YOUR CHILD IMMUNIZATIONS 16 YEARS Menactra (Meningococcal) #2 (final) (complete Gardasil series if not complete) Yearly Influenza vaccine HPV vaccine is 3 doses; 2nd dose is 1-2 months after first dose and 3rd dose is 6 months after the first dose DEVELOPMENT At this age, many girls have completed the physical changes associated with puberty, and most boys are continuing to gain height and muscle mass, along with completing the other physical changes associated with puberty. Sexual feelings are normal but reinforce with your child the importance of delaying sexual behavior. Teach him/her how to say no to sex. If your child is sexually active, discuss the importance of practicing safe sex and the health consequences of unprotected sex, such as and sexually transmitted diseases (including HIV/AIDS). The adolescent???s peer group continues to be very important to him/her. Regularly talk with your child about the consequences of drinking, smoking, drugs, inhalants, and especially drinking and driving. It is important to support and enhance your child???s self-esteem and self-confidence, as children who feel better about themselves are more likely to withstand peer pressure. Spend time with your child, show affection, praise his/her efforts and accomplishments, support his/her interests, and keep up with your child???s schoolwork and social experience in school. Communicate with your child???s teachers regularly, especially if there are concerns or questions. Stress the importance of school to your teenager and begin to discuss your child???s interest and goals for after high school. Encourage your child to be engage in regular physical activity and limit nonacademic screen time toless than 2 hours a day. This is also a good age for increasing your child???s responsibilities by allowing your child to share in (or continuing to share in) leather cartridge belt maker. Also increase awareness about community issues and needs. However, if your teen has an after school job, limit the hours so your child can maintain a healthy balance between school, work, and extracurricular activities. Continue to teach good hygiene and make sure your child gets enough sleep. At this age most children require 8 to 10 hours of sleep per night. DIET Continue to offer 3 healthy meals a day and stress the importance of breakfast. Teach your child how to choose appropriate foods to eat a balanced diet. Parents and other family members have the mostinfluence on children???s eating behavior and attitudes toward food. Be a positive role model by having nutritious foods available at home, and eating them yourself. Continue to encourage vegetables, fruits, whole grains, and low fat dairy products. If your child does not drink milk, provide other calcium-rich foods such as calcium-fortified orange juice, yogurt, cheese, broccoli, and turnip greens. Avoid having junk food, high calorie food, and soda available at home. DISCIPLINE Adolescents can present a challenge for their parents, as they frequently test your limits and question authority. Rules should be clear and consequences for unacceptable behavior should be enforced consistently. Your adolescent is maturing rapidly but still does not have the experience and judgment of an adult. Continue to be actively involved in your child???s life, providing loving parenting, appropriate limits, and respect for authority. Teach respect for authority, how to resolve conflicts, and how to handle anger appropriately. Most importantly, be a good role model! [employer] BRIGHT FUTURES HANDOUT - PARENT 15 THROUGH 17 YEAR VISITS Here are some suggestions from Bright Futures experts that may be of value to your family. HOW YOUR FAMILY IS DOING YOUR TEEN'S FEELINGS ?? Set aside time to be with Greyson and really listen to her hopes and concerns. ?? Support Greyson in finding activities that interest her. Encourage Rahatbarbara to help others in thecommunity. ?? Help Greyson find and be a part of positive after-school activities and sports. ?? Support Greyson as she figures out ways to deal with stress, solve problems, and make decisions. ?? Help Greyson deal with conflict. ?? If you are worried about your living or food situation, talk with us. Community agencies and programs such as [employer] can also provide information and assistance. ?? If you are concerned that Greyson is sad, depressed, nervous, irritable, hopeless, or angry, letus know. ?? If you have questions about Greyson's sexual development, you can always talk with us. YOUR GROWING AND CHANGING TEEN HEALTHY BEHAVIOR CHOICES ?? Make sure Greyson visits the dentist at least twice a year. ?? Give Greyson a fluoride supplement if the dentist recommends it. ?? Support Greyson's healthy body weight and help her be a healthy eater. - Provide healthy foods. - Eat together as a family. - Be a role model. ?? Help Greyson get enough calcium with low-fat or fat-free milk, low-fat yogurt, and cheese. ?? Encourage at least 1 hour of physical activity a day. ?? Praise Greyson when she does something well, not just when she looks good. ?? Know Greyson's friends and their parents. Be aware of where she is and what she is doing at all times. ?? Talk with Greyson about your values and your expectations on drinking, drug use, tobacco use, driving, and sex. ?? Praise Greyson for healthy decisions about sex, tobacco, alcohol, and other drugs. ?? Be a role model. ?? Know Greyson's friends and their activities together. ?? Lock your liquor in a cabinet. ?? Store prescription medications in a locked cabinet. ?? Be there for Greyson when she needs support or help in making healthy decisions about her behavior. SAFETY ?? Encourage safe and responsible driving habits. - Lap and shoulder seat belts should be used by everyone. - Limit the number of friends in the car and ask Greyson to avoid driving at night. 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 - Do not tolerate drinking and driving. ?? If it is necessary to keep a gun in your home, store it unloaded and locked with the ammunition locked separately from the gun. Consistent with Bright Futures: Guidelines for Health Supervision of Infants, Children And Adolescents, 4th Edition For more information, go to https://brightfutures.aap.org. The information contained in this handout should not be used as a substitute for true medical care and advice of your manager community outreach. There may be variations in treatment that your manager community outreach may recommend based on individual facts and circumstances. Original handout included as part of the Bright Futures Tool and Resource Kit, 2nd Edition. Inclusion in this handout does not imply an endorsement by the [place] [employer] (AAP). The AAP is not responsible for the content of the resources mentioned in this handout. Web site addresses are as current as possible but may change at any time. The [place] [employer] (AAP) does not review or endorse any modifications made to this handout and in no event shall the AAP be liable for any such changes. ?? 2019 [place] [employer]. All rights reserved. [place] [employer] Bright Futures https://brightfutures.aap.org [place] [employer] BRIGHT FUTURES HANDOUT for Journey 15 THROUGH 17 YEAR VISITS Here are some suggestions from [employer] experts that may be of value to you and your family. HOW YOU ARE DOING YOUR FEELINGS ?? Enjoy spending time with your family. Look for ways you can help at home. ?? Find ways to work with your family to solve problems. Follow your family's rules. ?? Form healthy friendships and find fun, safe things to do with friends. ?? Set high goals for yourself in school and activities and for your future. ?? Try to be responsible for your schoolwork and for getting to school or work on time. ?? Find ways to deal with stress. Talk with your parents or other trusted adults if you need help. ?? Always talk through problems and never use violence. ?? If you get angry with someone, walk away if you can. ?? Call for help if you are in a situation that feels dangerous. ?? Healthy dating relationships are built on respect, concern, and doing things both of you like todo. ?? When you're dating or in a sexual situation, ???No?? means NO. NO is OK. ?? Don't smoke, vape, use drugs, or drink alcohol. Talk with us if you are worried about alcohol ordrug use in your family. ?? Be proud of yourself when you do something good. ?? Figure out healthy ways to deal with stress. ?? Develop ways to solve problems and make good decisions. ?? It's OK to feel up sometimes and down others, but if you feel sad most of the time, let us know so we can help you. ?? It's important for you to have accurate information about sexuality, your physical development, and your sexual feelings toward the opposite or same sex. Please consider asking us if you have any questions. YOUR DAILY LIFE HEALTHY BEHAVIOR CHOICES ?? Visit the dentist at least twice a year. ?? [place] your teeth at least twice a day and floss once a day. ?? Be a healthy eater. It helps you do well in school and sports. - Have vegetables, fruits, lean protein, and whole grains at meals and snacks. - Limit fatty, sugary, and salty foods that are low in nutrients, such as candy, chips, and ice cream. - Eat when you're hungry. Stop when you feel satisfied. - Eat with your family often. - Eat breakfast. ?? Drink plenty of water. Choose water instead of soda or sports drinks. ?? Make sure to get enough calcium every day. ?? Have 3 or more servings of low-fat (1%) or fat-free milk and other low-fat dairy products, such as yogurt and cheese. ?? Aim for at least 1 hour of physical activity every day. ?? Wear your mouth guard when playing sports. ?? Get enough sleep. ?? Choose friends who support your decision to not use tobacco, alcohol, or drugs. Support friends who choose not to use. ?? Avoid situations with alcohol or drugs. ?? Don't share your prescription medicines. Don't use other people's medicines. ?? Not having sex is the safest way to avoid and sexually transmitted infections (STIs). ?? Plan how to avoid sex and risky situations. ?? If you're sexually active, protect against and STIs by correctly and consistently using control along with a condom. ?? Protect your hearing at work, home, and concerts. Keep your earbud volume down. STAYING SAFE ?? Always be a safe and cautious heavy truck driver. - Insist that everyone use a lap and shoulder seat belt. - Limit the number of friends in the car and avoid driving at night. - Avoid distractions. Never text or talk on the phone while you drive. ?? Do not ride in a vehicle with someone who has been using drugs or alcohol. - If you feel unsafe driving or riding with someone, call someone you trust to drive you. ?? Wear helmets and protective gear while playing sports. Wear a helmet when riding a bike, a motorcycle, or an ATV or when skiing or skateboarding. Wear a life jacket when you do water sports. ?? Always use sunscreen and a hat when you're outside. ?? Fighting and carrying weapons can be dangerous. Talk with your parents, teachers, or doctor about how to avoid these situations. Consistent with Bright Futures: Guidelines for Health Supervision of Infants, Children And Adolescents, 4th Edition For more information, go to https://brightfutures.aap.org. The information contained in this handout should not be used as a substitute for the medical care and advice of your manager community outreach. There may be variations in treatment that your manager community outreach may recommend based on individual facts and circumstances. Original handout included as part of the [employer] Tool and Resource Kit, 2nd Edition. Inclusion in this handout does not imply an endorsement by the [place] [employer] (AAP). The AAP is not responsible for the content of the resources mentioned in this handout. Web site addresses are as current as possible but may change at any time. The [place] [employer] (AAP) does not review or endorse any modifications made to this handout and in no event shall the AAP be liable for any such changes. ?? 2019 [place] [employer]. All rights reserved. [place] [employer] Bright Futures https://brightfutures.aap.org documented in this encounter Plan of Treatment Not on file documented as of this encounter Goals Goal Patient Goal Type Associated Problems Recent Progress Patient-Stated? Author Yearly PCP visit Lifestyle No Aster Garnica RN Note: Come into office for yearly wcc. Take recommended medication(s) Lifestyle No Nahun, Aster Lynn, RN documented as of this encounter Visit Diagnoses Diagnosis Encounter for well child examination without abnormal findings- Primary Hearing screen passed Other examination of ears and hearing Encounter for vision screening Examination of eyes and vision documented in this encounter Care Teams Publication Designer Relationship Specialty Start Date End Date Va Olivo MD PCP - General Pediatrics 12/08/17 documented as of this encounter
--- OUTSIDE RECORDS SUMMARY | 2024-07-18 03:58 | XMS_ITS | Encounter Summary ---
Author Organization [facility] Address [address] [place] [address] Care Team Providers Care Online Editor Name Role Phone Va Olivo MD Primary Care Provider [phone] Reason for Referral * Radiology Services (Routine) - Closed Specialty Diagnoses / Procedures Referred By Contac t Referred To Contact MRI Diagnoses Pain in left tibia Procedures [place] [address] [place] [address] Referral ID Status Reason Start Date Expiration Date Visits Re quested Visits Authorized [id number] Closed 04/06/2023 05/21/2023 1 1 Reason for Visit * Radiology Services (Routine) - Closed Specialty Diagnoses / Procedures Referred By Contac t Referred To Contact MRI Diagnoses Pain in left tibia Procedures [place] [address] [place] [address] Referral ID Status Reason Start Date Expiration Date Visits Re quested Visits Authorized [id number] Closed 04/06/2023 05/21/2023 1 1 Encounter Details Date Type Department Care Team (Latest Contact Info) Description 04/10/2023 9:07 AM CDT - 04/10/2023 11:59 PM CDT Hospital Encounter [facility] Health [place] [address] [place] [address] Discharge Disposition: Home or Self Care Social [...] on file documented as of this encounter Medications at Time of Discharge Medication Sig Dispensed Refills Start Date End Date albuterol HFA (ProAir HFA) 108 (90 Base) MCG/ACT inhalerIndications:Mild intermittent asthma without complication (HCC) INHALE 2 PUFFS BY MOUTH EVERY 4 HOURS NEEDED FOR WHEEZING OR COUGH; USE WITH SPACER 8 g 3 03/18/2023 fluticasone hfa 110 (Flovent HFA 110) 110 MCG/ACT inhaler Inhale 2 (two) puffs by mouth 2 times daily 12 g 1 03/19/2023 LESSINA-28 0.1-20 MG-MCG tabletIndications:Contra ceptive Therapy,irregular periods Take 1 (one) tablet by mouth once daily Reasons: Control Treatment, irregular periods 1 packet 12 04/14/2022 meloxicam (Mobic) 15 MG tablet Take 1 (one) tablet by mouth once daily 30 tablet 04/01/2023 documented as of this encounter Plan of Treatment Not on file documented as of this encounter Goals Goal Patient Goal Type Associated Problems Recent Progress Patient-Stated? Author Yearly PCP visit Lifestyle Aster Willard, RN Note: Come into office for yearly wcc. Take recommended medication(s) Lifestyle Aster Willard RN documented as of this encounter Procedures Procedure Name Priority Date/Time Associated Diagnosis Comments MRI TIBIA FIBULA LEFT WO CONT Routine 04/10/2023 9:48 AM CDT Pain in left tibia documented in this encounter Results * MRI TIBIA FIBULA LEFT WO CONT (04/10/2023 9:48 AM CDT) Anatomical Region Laterality Modality 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 Magnetic Resonan ce 04/10/2023 10:1 9 AM CDT Impressions 04/10/2023 12:36 PM CDT IMPRESSION: UNREMARKABLE MR IMAGING OF THE RIGHT AND LEFT TIBIA AND FIBULA. Edited by Paige Diego on 04/10/2023 10:28 AM > Interpreting Provider: Brooklyn Corley MD on 04/10/2023 12:36 PM Narrative 04/10/2023 12:36 PM CDT PROCEDURE: ??MRI TIBIA FIBULA RIGHT WO CONT, MRI TIBIA FIBULA LEFT WO CONT DATE/TIME OF EXAM: ??04/10/2023 9:47 AM CLINICAL INDICATION: M89.8X6: Other specified disorders of bone, lower leg Worsening bilateral lower leg pain and limited range of motion. COMPARISON: Right and left tibia and fibula x-ray series 04/01/2023. TECHNIQUE: MRI of the right and left tibia and fibula was performed utilizing multiple pulse sequences in multiple planes without gadolinium. FINDINGS: MRI RIGHT TIBIA AND FIBULA: Anatomic osseous alignment. No bone marrow edema. No acute or subacute fracture. No bone destruction. No osteoblastic or osteolytic abnormality. Normal signal and morphology of the musculature and intermuscular fascia. No sites of muscle atrophy. Normal signal and morphology of the neurovascular structures. No soft tissue swelling. No fluid collections. No solid or cystic masses. MRI LEFT TIBIA AND FIBULA: Anatomic osseous alignment. No bone marrow edema. No acute or subacute fracture. No bone destruction. No osteoblastic or osteolytic abnormality. Normal signal of the musculature and intermuscular fascia. No sites of muscle atrophy. Signal of the neurovascular structures are within normal limits. No soft tissue swelling. No fluid collections. No solid or cystic masses. Procedure Note Brooklyn Corley MD - 04/10/2023 PROCEDURE: MRI TIBIA FIBULA RIGHT WO CONT, MRI TIBIA FIBULA LEFT WO CONT DATE/TIME OF EXAM: 04/10/2023 9:47 AM CLINICAL INDICATION: M89.8X6: Other specified disorders of bone, lowerleg Worsening bilateral lower leg pain and limited range of motion. COMPARISON: Right and left tibia and fibula x-ray series 04/01/2023. TECHNIQUE: MRI of the right and left tibia and fibula was performed utilizingmultiple pulse sequences in multiple planes without gadolinium. FINDINGS: MRI RIGHT TIBIA AND FIBULA: Anatomic osseous alignment. No bone marrow edema. No acute or subacute fracture. No bone destruction. No osteoblastic or osteolyticabnormality. Normal signal and morphology of the musculature and intermuscularfascia. No sites of muscle atrophy. Normal signal and morphology of the neurovascular structures. No soft tissue swelling. No fluid collections. No solid or cystic masses. MRI LEFT TIBIA AND FIBULA: Anatomic osseous alignment. No bone marrow edema. No acute or subacute fracture. No bone destruction. No osteoblastic or osteolyticabnormality. Normal signal of the musculature and intermuscular fascia. No sites of muscle atrophy. Signal of the neurovascular structures are within normal limits. No soft tissue swelling. No fluid collections. No solid or cystic masses. IMPRESSION: UNREMARKABLE MR IMAGING OF THE RIGHT AND LEFT TIBIA AND FIBULA. Edited by Paige Diego on 04/10/2023 10:28 AM > Interpreting Provider: Brooklyn Corley MD on 04/10/2023 12:36 PM Buzz Weston MD MR ORDERABLES documented in this encounter Visit Diagnoses Diagnosis Pain in left tibia documented in this encounter Care Teams Online Editor Relationship Specialty Start Date End Date Va Olivo MD PCP - General Pediatrics 12/08/17 documented as of this encounter
--- OUTSIDE RECORDS SUMMARY | 2024-07-18 03:58 | XMS_ITS | Encounter Summary ---
Author Organization [facility] Address [address] [place] [address] Care Team Providers Care Telephone Advice Nurse Name Role Phone Va Olivo MD Primary Care Provider [phone] Reason for Referral * Radiology Services (Routine) - Closed Specialty Diagnoses / Procedures Referred By Contac t Referred To Contact MRI Diagnoses Pain of right tibia Procedures [place] [address] [place] [address] Referral ID Status Reason Start Date Expiration Date Visits Re quested Visits Authorized [id number] Closed 04/01/2023 03/31/2024 1 1 Reason for Visit * Radiology Services (Routine) - Closed Specialty Diagnoses / Procedures Referred By Contac t Referred To Contact MRI Diagnoses Pain of right tibia Procedures [place] [address] [place] [address] Referral ID Status Reason Start Date Expiration Date Visits Re quested Visits Authorized [id number] Closed 04/01/2023 03/31/2024 1 1 Encounter Details Date Type Department Care Team (Latest Contact Info) Description 04/10/2023 9:00 AM CDT - 04/10/2023 9:06 AM CDT Hospital Encounter [facility] Health Imaging Services [place] [address] [place] [address] Discharge Disposition: Home or Self Care Social [...] Date/Time Associated Diagnosis Comments MRI TIBIA FIBULA RIGHT WO CONT Routine 04/10/2023 9:47 AM CDT Pain of right tibia documented in this encounter Results * MRI TIBIA FIBULA RIGHT WO CONT (04/10/2023 9:47 AM CDT) Anatomical Region Laterality Modality Lower [...] in this encounter Visit Diagnoses Diagnosis Pain of right tibia documented in this encounter Care Teams Telephone Advice Nurse Relationship Specialty Start Date End Date Va Olivo MD PCP - General Pediatrics 12/08/17 documented as of this encounter
--- OUTSIDE RECORDS SUMMARY | 2024-07-18 03:58 | XMS_ITS | Encounter Summary ---
Author Organization [facility] Address [address] [place] [address] Care Team Providers Care Ring Packer Name Role Phone Va Olivo MD Primary Care Provider [phone] Encounter Details Date Type Department Care Team (Latest Contact Info) Description 04/01/2023 1:10 PM CDT Ancillary Procedure [facility] Orthopedics - Radiology [id number] [place] [id number] [place] [address] [facility] [address] [place] [address] Pain of right tibia Social History Tobacco Use Types Packs/Day Years [...] on file documented as of this encounter Plan of Treatment Not on file documented as of this encounter Goals Goal Patient Goal Type Associated Problems Recent Progress Patient-Stated? Author Yearly PCP visit Lifestyle No Aster Garnica, RN Note: Come into office for yearly wcc. Take recommended medication(s) Lifestyle No Aster Garnica, RN documented as of this encounter Procedures Procedure Name Priority Date/Time Associated Diagnosis Comments XR TIBIA FIBULA RIGHT 2VW Routine 04/01/2023 1:11 PM CDT Pain of right tibia documented in this encounter Results * XR TIBIA FIBULA RIGHT 2VW (04/01/2023 1:11 PM CDT) Anatomical Region Laterality Modality 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 Computed Radiogr aphy Narrative 04/01/2023 1:10 PM CDT Deya Crenshaw ? 04/13/2023 10:15 AM Please see office note in Epic. Buzz Weston MD DIAGNOSTIC IMAGING [facility] documented in this encounter Visit Diagnoses Diagnosis Pain of right tibia documented in this encounter Care Teams Ring Packer Relationship Specialty Start Date End Date Va Olivo MD PCP - General Pediatrics 12/08/17 documented as of this encounter
--- OUTSIDE RECORDS SUMMARY | 2024-07-18 03:58 | XMS_ITS | Encounter Summary ---
Author Organization [facility] Address [address] [place] [address] Care Team Providers Care Taximeter Repairer Name Role Phone Va Olivo MD Primary Care Provider [phone] Reason for Visit * Reason Comments Seizure Encounter Details Date Type Department Care Team (Late st Contact Info) Description 04/08/2024 10:48 PM CDT - 04/09/2024 1:07 AM CDT Emergency ER at [address] [address] Ever Potter MD [facility] [place] [address] Seizure-like activity (HCC) (Primary Dx); Seizure (HCC) Discharge Disposition: Home or Self Care Social [...] on file documented as of this encounter Last Filed Vital Signs Vital Sign Reading Time Taken Comments Blood Pressure 131/90 04/09/2024 12:00 AM CDT Pulse 92 04/09/2024 12:00 AM CDT Temperature 36.9 ??C (98.5 ??F) 04/08/2024 10:49 PM C DT Respiratory Rate 15 04/09/2024 12:00 AM CDT Oxygen Saturation 100% 04/09/2024 12:00 AM CDT Inhaled Oxygen Concentration - - Weight 54.4 kg (120 lb) 04/08/2024 10:49 PM CDT Height 160 cm (5' 3 ) 04/08/2024 10:49 PM CDT Body Mass Index 21.26 04/08/2024 10:49 PM CDT documented in this encounter Medications at Time of Discharge Medication Sig Dispensed Refills Start Date End Date albuterol HFA (ProAir HFA) 108 (90 Base) MCG/ACT inhalerIndications:Mild intermittent asthma without complication (HCC) INHALE 2 PUFFS BY MOUTH EVERY 4 HOURS NEEDED FOR WHEEZING OR COUGH; USE WITH SPACER 8 g 3 03/18/2023 cetirizine (ZyrTEC) 5 MG tablet Take 1 (one) tablet by mouth once daily 30 tablet 10/29/2023 fluticasone hfa 110 (Flovent HFA 110) 110 [...] tablet 04/01/2023 documented as of this encounter ED Notes * Kary Gutierrez RN - 04/09/2024 1:07 AM CDT Went over discharge instructions with Pt, verbalized understanding. Pt had opportunity to ask questions, which were answered appropriately. Pt is A&Ox4. Pt ambulates with steady gait towards waiting room with no signs or symptoms of distress. IV removed and Pt sent home with all belongings. 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 Was reported that she had approximately 1 minute of seizure-like activity and when EMS got there she had another episode that lasted approximately 10 seconds. She was vitally stable anddid not require abortive medication. She does not provide much significant history upon arrival. Medical Decision Making / ED Course Greyson Kevin is a 18 year old female with a PMH of functional neurologic disorder who presented tothe emergency department with seizure-like activity. Differential diagnosis includes, but is not limited to electrolyte abnormality, COVID-19, influenza, RSV, other viral infection, arrhythmia, syncope, seizure, PNES. Physical exam is notable for: BP 149/89 Pulse 91 Temp 98.5 ??F (36.9 ??C) Resp 14 Ht 1.6 m (5' 3 ) Wt 54.4 kg (120 lb) SpO2 99% Female lying on the bed in no acute distress. Intermittently opens eyes to voice and will nod answers to some questions but does not vocalize. PERRL. EOMI. Lungs are clear to auscultation bilaterally. Heart has a regular rate and rhythm. Abdomen is soft, nondistended, non-tender Spontaneously moving all extremities Review of [facility] discharge summary dated 11/13/2023: Patient has been admitted after episodes of seizure-like activity. Had extensive neurologic workup including continuous video EEG monitoring which showed no epileptiform activity. She did require transfer to the ICU due to a rapid response which wascalled for seizure-like activity and apnea. Ultimately, the patient was diagnosed with psychogenic nonepileptic seizures and seizure medication was discontinued. We will plan for basic labs, test, chest x-ray, IV fluids, and period of observation. Lab work obtained and reviewed: CBC grossly unremarkable CMP with normal electrolytes Magnesium WNL HCG negative Ordered lactate, but it wasn't sent to lab on ice so was cancelled by lab. Notified by RN of this after patient has already received IV fluids. Do not feel need to repeat at this time. Clinically patient is doing better. No emergent findings on workup thus far. 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 I reassessed the patient at bedside and she was much more alert, awake, and ready for discharge. She was received her bolus of fluids and family is present unwilling to take her home. Discharged in stable condition. Impression / Disposition 1. Seizure-like activity (HCC) Disposition: Discharge home Ever Potter MD Dictation Disclaimer: This note was created utilizing voice recognition dictation software. As a result, there may be errors in the script that have gone undetected. Errors are generally corrected inreal time. Please contact me via [employer] message if you note any errors requiring clarification. * Bertha Bennett RN - 04/08/2024 10:49 PM CDT BIB EMS from [facility] for seizure activity. Pt hs seizure and takes medication but had not taken them today. Lasted about 1 min when EMS got there it happened again and was about 10 sec. Vital 126/80 100 (3ltrs) 92 ra 122 BS 88HR * Angus Ortiz RN - 04/08/2024 10:49 PM CDT Bed: 16 Expected date: Expected time: Means of arrival: Comments: [id number] documented in this encounter Miscellaneous Notes * Clinical References AVS - Ever Potter MD - 04/09/2024 1:03 AM CDT [id number] Functional Neurological Symptom Disorder (Conversion Disorder) You are showing signs of functional neurological system disorder. This was previously known as conversion disorder. It happens when stress or conflict triggers physical symptoms. It may in some ways look like a neurological disorder, but is not. Symptoms include: ?? Not being able to move parts of your body ?? Sensory changes like a feeling of numbness or pins and needles ?? Not being able to stand or walk normally ?? Movement of your body that feels out of your control ?? Loss of normal speech, sight, or hearing ?? Trouble urinating ?? Trouble swallowing ?? Tremors (shaking) or nonepileptic seizures (convulsions). You may hear these called pseudoseizures. In the ER, you will probably have some tests done to make sure there are no other causes of your symptoms. You may also be given medicines to help relax you. The main treatment for functional neurological system disorder is counseling. This can be arranged through your healthcare provider. Our staff may also give you referrals to therapists or counselors you can talk to. Home care If you have been given medicine, take it as you have been told to by the healthcare provider or hospital staff. Tell each of your healthcare providers about all of the prescription medicines, goad-als-tlzxvcp medicines, vitamins, and supplements you take. Certain supplements interact with medicines and may result in dangerous side effects. Ask your pharmacist when you have questions about medicine interactions. Symptoms of functional neurological system disorder most often improve over a period of a few weekswithout specific medicine. The main treatment for this disorder is education about the diagnosis, and psychotherapy or counseling. This can include individual and group therapy. Antidepressant medicines may be used to treat this disorder when it continues even with therapy. They may also be used totreat anxiety or depression that exists at the same time. Other treatments that might help include physical therapy, hypnosis, and relaxation. Follow-up care Follow up with your healthcare provider, or as advised. It's important to have a trusting, supportive relationship with your primary healthcare provider. This is so any questions or concerns you have about the tests can be addressed. Call 911 Call 911 if any of these occur: ?? Trouble breathing ?? Very confused ?? Very drowsy or trouble waking up ?? Fainting or loss of consciousness ?? Rapid heart rate ?? Seizure When to seek medical advice Call your healthcare provider right away if any of the following occur: ?? Your symptoms get worse or do not improve over time ?? New symptoms ?? Desire to harm yourself or others. Call 988 If you have a desire to harm yourself or someone else, call or text 988 or [phone]) right away. You will be connected to trained counselors who are part of the 988 Suicide [employer] Crisis Lifeline. An online chat choice is also available. This service is free and available 02/02. Last Reviewed Date: 2023 00:00:00 ?? [id number] [employer]. All rights reserved. This information is not intended as a substitute for professional medical care. Always follow your healthcare professional's instructions. * Clinical References AVS - Ever Potter MD - 04/09/2024 12:01 AM CDT [id number] Functional Neurological Symptom Disorder (Conversion Disorder) You are showing signs of functional neurological system disorder. This was previously known as conversion disorder. It happens when stress or conflict triggers physical symptoms. It may in some ways look like a neurological disorder, but is not. Symptoms include: ?? Not being able to move parts of your body ?? Sensory changes like a feeling of numbness or pins and needles ?? Not being able to stand or walk normally ?? Movement of your body that feels out of your control ?? Loss of normal speech, sight, or hearing ?? Trouble urinating ?? Trouble swallowing ?? Tremors (shaking) or nonepileptic seizures (convulsions). You may hear these called pseudoseizures. In the ER, you will probably have some tests done to make sure there are no other causes of your symptoms. You may also be given medicines to help relax you. The main treatment for functional neurological system disorder is counseling. This can be arranged through your healthcare provider. Our staff may also give you referrals to therapists or counselors you can talk to. Home care If you have been given medicine, take it as you have been told to by the healthcare provider or hospital staff. Tell each of your healthcare providers about all of the prescription medicines, jenl-xjg-atksfpw medicines, vitamins, and supplements you take. Certain supplements interact with medicines and may result in dangerous side effects. Ask your pharmacist when you have questions about medicine interactions. Symptoms of functional neurological system disorder most often improve over a period of a few weekswithout specific medicine. The main treatment for this disorder is education about the diagnosis, and psychotherapy or counseling. This can include individual and group therapy. Antidepressant medicines may be used to treat this disorder when it continues even with therapy. They may also be used totreat anxiety or depression that exists at the same time. Other treatments that might help include physical therapy, hypnosis, and relaxation. Follow-up care Follow up with your healthcare provider, or as advised. It's important to have a trusting, supportive relationship with your primary healthcare provider. This is so any questions or concerns you have about the tests can be addressed. Call 911 Call 911 if any of these occur: ?? Trouble breathing ?? Very confused ?? Very drowsy or trouble waking up ?? Fainting or loss of consciousness ?? Rapid heart rate ?? Seizure When to seek medical advice Call your healthcare provider right away if any of the following occur: ?? Your symptoms get worse or do not improve over time ?? New symptoms ?? Desire to harm yourself or others. Call 988 If you have a desire to harm yourself or someone else, call or text 988 or [phone] ([phone]) right away. You will be connected to trained counselors who are part of the [employer] [facility] Crisis Lif[employer]. An online chat choice is also available. This service is free and available 02/02. Last Reviewed Date: 2023 00:00:00 ?? [id number] [employer]. All rights reserved. This information is not intended as a substitute for professional medical care. Always follow your healthcare professional's instructions. documented in this encounter Plan of Treatment Not on file documented as of this encounter Goals Goal Patient Goal Type Associated Problems Recent Progress Patient-Stated? Author Yearly PCP visit Lifestyle Aster Willard RN Note: Come into office for yearly wcc. Take recommended medication(s) Lifestyle No Aster Garnica RN documented as of this encounter Procedures Procedure Name Priority Date/Time Associated Diagnosis Comments XR CHEST 1VW PORTABLE STAT 04/08/2024 11:51 PM CDT Seizure-like activity (HCC) CBC W AUTO DIFFERENTIAL STAT 04/08/2024 11:21 PM CDT BASIC METABOLIC PANEL (CALCIUM TOTAL) STAT 04/08/2024 11:21 PM CDT MAGNESIUM BLOOD STAT 04/08/2024 11:21 PM CDT HCG BLOOD QUALITATIVE STAT 04/08/2024 11:21 PM CDT documented in this encounter Results * XR CHEST 1VW PORTABLE (04/08/2024 11:51 PM CDT) Anatomical Region Laterality Modality Chest Computed Radiogr aphy 04/09/2024 8:27 AM CDT Impressions 04/09/2024 8:28 AM CDT IMPRESSION: No acute disease. > Interpreting Provider: Jori Olmos MD on 04/09/2024 8:28 AM Narrative 04/09/2024 8:28 AM CDT Portable Chest AP History: Unspecified convulsions.. FINDINGS: Lungs are clear. No pleural effusion or pneumothorax seen. Cardiac silhouette within normal limits. Procedure Note Jori Olmos MD - 04/09/2024 Portable Chest AP History: Unspecified convulsions.. FINDINGS: Lungs are clear. No pleural effusion or pneumothorax seen. Cardiac silhouette within normal limits. IMPRESSION: No acute disease. > Interpreting Provider: Jori Olmos MD on 04/09/2024 8:28 AM Ever Potter MD DIAGNOSTIC IMAGING O RDERABLES * HCG BLOOD QUALITATIVE (04/08/2024 11:21 PM CDT) HCG Qual Serum Negative Negative 04/08/2024 11:44 PM CDT [facility] Blood BLOOD SPECIMEN / Unknown Venipuncture / Unknown 04/08/2024 11:21 PM CDT 04/08/2024 11:28 PM CDT Narrative [facility] - 04/08/2024 11:44 PM CDT Specimens containing human anti-mouse antibodies may exhibit false positive or false negative results. If qualitative interpretation is inconsistent with clinical evaluation, consider confirmation by an alternative hCG method. Ever Potter MD LAB - CHEMISTRY SALIMA MOORE Performing Organization Address [facility] Co de Phone Number [facility] [address] [place], [place] [phone] * MAGNESIUM BLOOD (04/08/2024 11:21 PM CDT) [facility] Magnesium 1.9 1.7 - 2.3 mg/dL 04/08/2024 11:50 PM CDT [facility] Blood BLOOD SPECIMEN / Unknown Venipuncture / Unknown 04/08/2024 11:21 PM CDT 04/08/2024 11:28 PM CDT Ever Potter MD LAB - CHEMISTRY SALIMA MOORE Performing Organization Address [facility] de Phone Number [facility] [address] [place] [address] * CBC W AUTO DIFFERENTIAL (04/08/2024 11:21 PM CDT) [facility] WBC 4.9 4.0 - 10.7 x10E9/L 04/08/2024 11:37 PM CDT [facility] RBC Count 4.47 3.90 - 5.20 x10E12/L 04/08/2024 11:37 PM CDT [facility] Hemoglobin 12.1 11.9 - 15.8 g/dL 04/08/2024 11:37 PM CDT [facility] Hematocrit 36.7 34.8 - 46.1 % 04/08/2024 11:37 PM CDT [facility] MCV 82.1 80.0 - 98.0 fL 04/08/2024 11:37 PM CDT [facility] MCH 27.1 26.7 - 33.6 pg 04/08/2024 11:37 PM CDT [facility] MCHC 33.0 31.7 - 36.3 g/dL 04/08/2024 11:37 PM CDT [facility] RDW-CV 11.8 11.3 - 14.8 % 04/08/2024 11:37 PM CDT [facility] Platelet Count 282 150 - 420 x10E9/L 04/08/2024 11:37 PM CDT [facility] MPV 10.7 7.8 - 11.4 fL 04/08/2024 11:37 PM CDT [facility] Neutrophil % 46.2 41.0 - 74.0 % 04/08/2024 11:37 PM CDT [facility] Lymphocyte % 37.7 17.0 - 47.0 % 04/08/2024 11:37 PM CDT [facility] Monocyte % 8.8 3.0 - 11.0 % 04/08/2024 11:37 PM CDT [facility] Eosinophil % 5.9 0.0 - 7.0 % 04/08/2024 11:37 PM CDT [facility] Basophil % 1.2 0.0 - 1.6 % 04/08/2024 11:37 PM CDT [facility] Immature Granulocytes % 0.2 0.0 - 1.0 % 04/08/2024 11:37 PM CDT [facility] Neutrophil Absolute 2.27 1.60 - 7.50 x10E9/L 04/08/2024 11:37 PM CDT [facility] Lymphocyte Absolute 1.85 1.00 - 4.40 x10E9/L 04/08/2024 11:37 PM CDT [facility] Monocyte Absolute 0.43 0.15 - 1.00 x10E9/L 04/08/2024 11:37 PM CDT [facility] Eosinophil Absolute 0.29 0.00 - 0.60 x10E9/L 04/08/2024 11:37 PM CDT [facility] Basophil Absolute 0.06 0.00 - 0.13 x10E9/L 04/08/2024 11:37 PM CDT [facility] Blood BLOOD SPECIMEN / Unknown Venipuncture / Unknown 04/08/2024 11:21 PM CDT 04/08/2024 11:28 PM CDT Ever Potter MD LAB - HEMATOLOGY ORD ERABLES [facility] [address] [place] [address] * (ABNORMAL) BASIC METABOLIC PANEL (CALCIUM TOTAL) (04/08/2024 11:21 PM CDT) Glucose 113(H) 70 - 99 mg/dL 04/08/2024 11:50 PM CDT [facility] Sodium 138 136 - 145 mmol/L 04/08/2024 11:50 PM CDT [facility] Potassium 3.8 3.5 - 5.1 mmol/L 04/08/2024 11:50 PM CDT [facility] Chloride 107 98 - 107 mmol/L 04/08/2024 11:50 PM CDT [facility] CO2 23 22 - 29 mmol/L 04/08/2024 11:50 PM CDT [facility] Calcium 9.4 8.4 - 10.4 mg/dL 04/08/2024 11:50 PM T [facility] Anion Gap 8 6 - 16 mmol/L 04/08/2024 11:50 PM CDT [facility] BUN 12 5.3 - 18.7 mg/dL 04/08/2024 11:50 PM CDT [facility] Creatinine 0.84 0.57 - 1.11 mg/dL 04/08/2024 11:50 PM CDT [facility] eGFR by CKD-EPI >90 >=90 mL/min/1.7 3 m2 04/08/2024 11:50 PM CDT [facility] Blood BLOOD SPECIMEN / Unknown Venipuncture / Unknown 04/08/2024 11:21 PM CDT 04/08/2024 11:28 PM CDT Ever Potter MD LAB - CHEMISTRY SALIMA MOORE [facility] Organization Address City/State/ZIP Co de Phone Number [facility] [address] [place] [address] documented in this encounter Visit Diagnoses Diagnosis Seizure-like activity (HCC)- Primary Other convulsions Seizure (HCC) Other convulsions documented in this encounter Administered Medications Inactive Administered Medications - up to 3 most recent administrations Medication Order MAR Action Action Date Dose Rate Site 0.9% NaCl IV bolus 1,000 mL, at 1,935.48 mL/hr, Administer over 31 Minutes, NOW, 1 dose, On Thu04/08/24 at 2300 $ New Bag/Syringe 04/08/2024 11:22 PM CDT 1,000 mL 1935.48 mL/hr documented in this encounter Active and Recently Administered Medications Times are shown in CDT. Scheduled Medication Order 04/07/2024 04/08/2024 04/09/2024 0.9% NaCl IV bolus (COMPLETED) 1,000 mL, at 1,935.48 mL/hr, Administer over 31 Minutes, NOW, 1 dose, On Thu04/08/24 at 2300 2322 ($ New Bag/Syringe - Provider: Bertha Bennett, ALEXA)[id number] (Stopped - Provider: Bertha Bennett, ALEXA) documented in this encounter Care Teams Taximeter Repairer Relationship Specialty Start Date End Date Va Olivo MD PCP - General Pediatrics 12/08/17 documented as of this encounter
--- OUTSIDE RECORDS SUMMARY | 2024-07-18 03:58 | XMS_ITS | Encounter Summary ---
Author Organization [facility] Address [address] [place] [address] Care Team Providers Care Municipal Court Judge Name Role Phone Va Olivo MD Primary Care Provider Reason for Visit * Reason Onset Date Comments MEDICATION REFILL 03/18/2023 Encounter Details Date Type Department Care Team (Late st Contact Info) Description 03/18/2023 Refill [facility] [address] , [address] [place] [address] Va Olivo MD [phone] [place] [address] MEDICATION REFILL Social History Tobacco [...] Encounter - Heather Sampson RN - 03/18/2023 11:30 AM CDT Last seen: 01/03/23 Last filled: 01/01 documented in this encounter Plan of Treatment Not on file documented as of this encounter Goals Goal Patient Goal Type Associated Problems Recent Progress Patient-Stated? Author Yearly PCP visit Lifestyle No Aster Garnica RN Note: Come into office for yearly wcc. Take recommended medication(s) Lifestyle No Aster Garnica RN documented as of this encounter Visit Diagnoses Not on filedocumented in this encounter Care Teams [address] Judge Relationship Specialty Start Date End Date Va Olivo MD PCP - General Pediatrics 12/08/17 documented as of this encounter
--- OUTSIDE RECORDS SUMMARY | 2024-07-18 03:58 | XMS_ITS | Encounter Summary ---
Author Organization [facility] Address [address] [place] [address] Care Team Providers Care Wharf Tender Name Role Phone Va Olivo MD Primary Care Provider [phone] Encounter Details Date Type Department Care Team (Latest Contact Info) Description 10/29/2023 Travel Social History Tobacco Use Types Packs/Day Years [...] on filedocumented in this encounter Care Teams Wharf Tender Relationship Specialty Start Date End Date Va Olivo MD PCP - General Pediatrics 12/08/17 documented as of this encounter
--- OUTSIDE RECORDS SUMMARY | 2024-07-18 03:58 | XMS_ITS | Patient Health Summary ---
Author Organization [facility] Address [address] [address] Care Team Providers Care Weld Fitter Name Role Phone Va Olivo MD Primary Care Provider [phone] Note from [facility],non-owned Affiliates and Associated Physician Practices is amultiple site organization consisting of ambulatory clinics and hospital sitesin [place], [place], [place] and [place]. This disclosure is being madepursuant to the Care Everywhere program and may not contain all information available regarding this patient. Last updated 18.[facility] Allergies No known active allergies Medications * Be aware that medications may not be up to date on this document. Alwaysverify current medications with the patient. * LESSINA-28 0.1-20 MG-MCG tablet(Started 04/14/2022) Take 1 (one) tablet by mouth once daily Reasons: Control Treatment, irregular periods 12 refills by 04/14/2023 * albuterol HFA (ProAir HFA) 108 (90 Base) MCG/ACT inhaler(Started 03/18/2023) INHALE 2 PUFFS BY MOUTH EVERY 4 HOURS NEEDED FOR WHEEZING OR COUGH; USE WITH SPACER 3 refills by 03/17/2024 * fluticasone hfa 110 (Flovent HFA 110) 110 MCG/ACT inhaler(Started 03/19/2023) Inhale 2 (two) puffs by mouth 2 times daily 1 refill by 03/18/2024 * meloxicam (Mobic) 15 MG tablet(Started 04/01/2023) Take 1 (one) tablet by mouth once daily * cetirizine (ZyrTEC) 5 MG tablet(Started 10/29/2023) Take 1 (one) tablet by mouth once daily Active Problems Problem Noted Date Diagnosed Date Influenza B 09/09/2022 Queen splints 11/29/2021 Poor sleep hygiene 11/29/2021 Mild intermittent asthma without complication History of syncope 12/21/2014 Resolved Problems Problem Noted Date Diagnosed Date Resolved Date Failure to attend appointment 09/16/2013 02/17/2019 GERD (gastroesophageal reflux disease) 01/06/2005 02/17/2019 Gestation Period, 35-36 Weeks 2004 12/08/2017 Immunizations * DTAP/HEP B/IPV(Given 07/04/2005, 04/08/2005, 01/06/2005) * DTAP/IPV(Given 01/24/2009) * DTaP VACCINE IM (6wk-6yrs)(Given 11/05/2006) * FLU VACCINE TRI IIV3 SPLIT PF IM (FLUVIRIN)(Given 05/07/2011) * HEP A PEDS 2 DOSE(Given 11/05/2006, 11/11/2005) * HIB BOOSTER(Given 11/11/2005, 04/08/2005, 01/06/2005) * Human Papilloma Virus Ninevalent Vaccine(Given 02/17/2017, 02/01/2016) * MENINGOCOCCAL CONJUGATE (MCV4P)(Given 11/05/2020, 02/01/2016) * MMR(Given 01/24/2009, 11/11/2005) * PNEUMOCOCCAL PCV7 CONJ, PEDS(Given 11/11/2005, 07/04/2005, 04/08/2005, 01/06/2005) * TDAP (7yrs+)(Given 02/01/2016) * VARICELLA(Given 01/24/2009, 11/11/2005) Social History Tobacco Use Types Packs/Day Years Used Date Smoking Tobacco: Never Smokeless Tobacco: Never Tobacco Cessation:Counseling Given: Not Answered Alcohol Use Standard Drinks/Week Comments Never 0 (1 standard drink = 0.6 oz pur e alcohol) PHQ-2 Answer Date Recorded Patient Health Questionnaire-2 Score 2 12/24/2022 Sex and Gender Information Value Date Recorded Sex Assigned at Not on file Gender Identity Not on file Sexual Orientation Not on file Last Filed Vital Signs Vital Sign Reading [...] Mass Index 21.26 04/08/2024 10:49 PM CDT Procedures * XR CHEST 1VW PORTABLE(Performed 04/08/2024) Performed for Seizure-like activity (HCC) * HCG BLOOD QUALITATIVE(Performed 04/08/2024) * MAGNESIUM BLOOD(Performed 04/08/2024) * CBC W AUTO DIFFERENTIAL(Performed 04/08/2024) * BASIC METABOLIC PANEL (CALCIUM TOTAL)(Performed 04/08/2024) * MRI TIBIA FIBULA LEFT WO CONT(Performed 04/10/2023) Performed for Pain in left tibia * MRI TIBIA FIBULA RIGHT WO CONT(Performed 04/10/2023) Performed for Pain of right tibia * XR TIBIA FIBULA LEFT 2VW(Performed 04/01/2023) Performed for Pain in left tibia * XR TIBIA FIBULA RIGHT 2VW(Performed 04/01/2023) Performed for Pain of right tibia * SARS-COV-2 INFLUENZA ANTIGEN - POCT INTER(Performed 09/09/2022) Performed for Influenza B * EEG AWAKE AND ASLEEP(Performed 05/19/2022) Performed for Seizure (HCC) * CT CERVICAL SPINE WO CONTRAST(Performed 04/16/2022) Performed for Neck pain * CT HEAD WO CONTRAST(Performed 04/16/2022) Performed for Seizure-like activity (HCC) * DRUG SCREEN TOX LIMITED BLD PNL 3 INHOUSE(Performed 04/16/2022) * PROLACTIN(Performed 04/16/2022) * LACTIC ACID BLOOD(Performed 04/16/2022) * TROPONIN I(Performed 04/16/2022) * MAGNESIUM BLOOD(Performed 04/16/2022) * HCG BETA BLOOD QUANTITATIVE(Performed 04/16/2022) * CBC W AUTO DIFFERENTIAL(Performed 04/16/2022) * COMPREHENSIVE METABOLIC PANEL(Performed 04/16/2022) * EKG 12-LEAD(Performed 04/16/2022) Performed for Syncope and collapse * CHLAMYDIA + GC + TRICH DNA AMPL(Performed 04/14/2022) Performed for Well woman exam, Screening for venereal disease * HCG URINE QUALITATIVE - POINT OF CARE (AMB) STL(Performed 04/14/2022) Performed for Primary oligomenorrhea * LIPID PROFILE(Performed 11/05/2020) Performed for Elevated blood pressure reading, Screening for endocrine, metabolic and immunity disorder, Family history of diabetes mellitus * HEMOGLOBIN A1C(Performed 11/05/2020) Performed for Elevated blood pressure reading, Screening for endocrine, metabolic and immunity disorder, Family history of diabetes mellitus * COMPREHENSIVE METABOLIC PANEL(Performed 11/05/2020) Performed for Elevated blood pressure reading, Screening for endocrine, metabolic and immunity disorder, Family history of diabetes mellitus * FERRITIN(Performed 02/17/2017) Performed for Encounter for routine infant and child vision and hearing testing * VITAMIN D 25-HYDROXY(Performed 02/17/2017) Performed for Encounter for routine infant and child vision and hearing testing * EKG 12-LEAD(Performed 12/21/2014) Performed for History of syncope * DIFFERENTIAL MANUAL(Performed 12/21/2014) Performed for History of syncope * T4 TOTAL(Performed 12/21/2014) Performed for History of syncope * TSH(Performed 12/21/2014) Performed for History of syncope * CBC W MANUAL DIFFERENTIAL(Performed 12/21/2014) Performed for History of syncope * BASIC METABOLIC PANEL (CALCIUM TOTAL)(Performed 12/21/2014) Performed for History of syncope * LEAD BLOOD(Performed 01/24/2009) Performed for Routine Infant or Child Health Check * HGB HCT PANEL(Performed 01/24/2009) Performed for Routine or Child Health Check Results * XR CHEST 1VW PORTABLE (04/08/2024 [...] Potter MD DIAGNOSTIC IMAGING O RDERABLES * CBC W AUTO DIFFERENTIAL (04/08/2024 11:21 PM CDT) Only the most recent of2 resultswithin the time period is included. WBC 4.9 4.0 - 10.7 x10E9/L 04/08/2024 11:37 PM CDT [facility] RBC Count 4.47 3.90 - 5.20 x10E12/L 04/08/2024 11:37 PM CDT [facility] Hemoglobin 12.1 11.9 - 15.8 g/dL 04/08/2024 11:37 PM CDT [facility] Hematocrit 36.7 34.8 - 46.1 % 04/08/2024 11:37 PM CDT [facility] MCV 82.1 80.0 - 98.0 fL 04/08/2024 11:37 PM CDT [facility] MCH 27.1 26.7 - 33.6 pg 04/08/2024 11:37 PM CDT [facility] MCHC 33.0 31.7 - 36.3 g/dL 04/08/2024 11:37 PM CDT [facility] RDW-CV 11.8 11.3 - 14.8 % 04/08/2024 11:37 PM CDT [facility] Platelet Count 282 150 - 420 x10E9/L 04/08/2024 11:37 PM CDT [facility] MPV 10.7 7.8 - 11.4 fL 04/08/2024 11:37 PM CDT [facility] Neutrophil % 46.2 41.0 - 74.0 % 04/08/2024 11:37 PM CDT [facility] Lymphocyte % 37.7 17.0 - 47.0 % 04/08/2024 11:37 PM CDT [facility] Monocyte % 8.8 3.0 - 11.0 % 04/08/2024 11:37 PM CDT [facility] Eosinophil % 5.9 0.0 - 7.0 % 04/08/2024 11:37 PM CDT [facility] Basophil % 1.2 0.0 - 1.6 % 04/08/2024 11:37 PM CDT [facility] Immature Granulocytes % 0.2 0.0 - 1.0 % 04/08/2024 11:37 PM CDT [facility] Neutrophil Absolute 2.27 1.60 - 7.50 x10E9/L 04/08/2024 11:37 PM CDT [facility] Lymphocyte Absolute 1.85 1.00 - 4.40 x10E9/L 04/08/2024 11:37 PM CDT [facility] Monocyte Absolute 0.43 0.15 - 1.00 x10E9/L 04/08/2024 11:37 PM CDT [facility] Eosinophil Absolute 0.29 0.00 - 0.60 x10E9/L 04/08/2024 11:37 PM CDT [facility] Basophil Absolute 0.06 0.00 - 0.13 x10E9/L 04/08/2024 11:37 PM CDT [facility] Blood BLOOD SPECIMEN / Unknown Venipuncture / Unknown 04/08/2024 11:21 PM CDT 04/08/2024 11:28 PM CDT Ever Potter MD LAB - HEMATOLOGY ORD ERABLES Performing Organization Address City/[facility]/ZIP Co de Phone Number [facility] [address] [place] [address] * (ABNORMAL) BASIC METABOLIC PANEL (CALCIUM TOTAL) (04/08/2024 11:21 PM CDT) Only the most recent of2 resultswithin the time period is included. [facility] Signature Glucose 113(H) 70 - 99 mg/dL 04/08/2024 11:50 PM CDT [facility] Sodium 138 136 - 145 mmol/L 04/08/2024 11:50 PM CDT [facility] Potassium 3.8 3.5 - 5.1 mmol/L 04/08/2024 11:50 PM CDT [facility] Chloride 107 98 - 107 mmol/L 04/08/2024 11:50 PM CDT [facility] CO2 23 22 - 29 mmol/L 04/08/2024 11:50 PM CDT [facility] Calcium 9.4 8.4 - 10.4 mg/dL 04/08/2024 11:50 PM CDT [facility] Anion Gap 8 6 - 16 mmol/L 04/08/2024 11:50 PM CDT [facility] BUN 12 5.3 - 18.7 mg/dL 04/08/2024 11:50 PM CDT [facility] Creatinine 0.84 0.57 - 1.11 mg/dL 04/08/2024 11:50 PM CDT [facility] eGFR by CKD-EPI >90 >=90 mL/min/1.7 3 m2 04/08/2024 11:50 PM CDT [facility] Blood BLOOD SPECIMEN / Unknown Venipuncture / Unknown 04/08/2024 11:21 PM CDT 04/08/2024 11:28 PM CDT Ever Potter MD LAB - CHEMISTRY SALIMA MOORE [facility] [address] [place] [address] * MAGNESIUM BLOOD (04/08/2024 11:21 PM CDT) Only the most recent of2 resultswithin the time period is included. Pathologist [facility] Magnesium 1.9 1.7 - 2.3 mg/dL 04/08/2024 11:50 PM CDT [facility] Blood BLOOD SPECIMEN / Unknown Venipuncture / Unknown 04/08/2024 11:21 PM CDT 04/08/2024 11:28 PM CDT Ever Potter MD LAB - CHEMISTRY SALIMA MOORE Performing Organization Address [facility] Co de Phone Number [facility] [address] [place] [address] * HCG BLOOD QUALITATIVE (04/08/2024 11:21 PM CDT) [facility] HCG Qual Serum Negative Negative 04/08/2024 11:44 PM CDT [facility] Blood BLOOD SPECIMEN / Unknown Venipuncture / Unknown 04/08/2024 11:21 PM CDT 04/08/2024 11:28 PM CDT Narrative [facility] - 04/08/2024 11:44 PM CDT Specimens containing human anti-mouse antibodies may exhibit false positive or false negative results. If qualitative interpretation is inconsistent with clinical evaluation, consider confirmation by an alternative hCG method. Ever Potter MD LAB - CHEMISTRY SALIMA MOORE Performing Organization Address [facility] de Phone Number [facility] [address] [place] [id number] * MRI TIBIA FIBULA LEFT WO CONT [...] AND LEFT TIBIA AND FIBULA. Edited by Pagie Diego on 04/10/2023 10:28 AM > Interpreting Provider: Brooklyn Corley MD on 04/10/2023 12:36 PM Buzz Weston MD MR ORDERABLES * MRI TIBIA FIBULA RIGHT WO CONT [...] 12:36 PM Buzz Weston MD MR ORDERABLES * XR TIBIA FIBULA LEFT 2VW (04/01/2023 1:11 PM CDT) Anatomical Region Laterality Modality 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 Computed Radiogr aphy Narrative 04/01/2023 1:10 PM CDT Deya Crenshaw ? 04/13/2023 10:15 AM Please see office note in Epic. Buzz Weston MD DIAGNOSTIC IMAGING O RDERABLES * XR TIBIA FIBULA RIGHT 2VW (04/01/2023 1:11 PM CDT) Anatomical Region Laterality Modality 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 Computed Radiogr aphy Narrative 04/01/2023 1:10 PM CDT Deya Crenshaw ? 04/13/2023 10:15 AM Please see office note in Epic. Buzz Weston MD DIAGNOSTIC IMAGING O RDERABLES * (ABNORMAL) SARS-COV-2 INFLUENZA ANTIGEN - POCT INTER (09/09/2022 11:37 AM FLIGHT CONTROLS ENGINEER) SARS-CoV-2 Ag Negative Negative 09/09/2022 11:45 AM FLIGHT CONTROLS ENGINEER [facility] Influenza A Antigen Negative Negative 09/09/2022 11:45 AM FLIGHT CONTROLS ENGINEER [facility] Influenza B Antigen Positive(A) Negative 09/09/2022 11:45 AM FLIGHT CONTROLS ENGINEER [facility] Microbiology SPECIMEN FROM NASAL FOSSAE / Unknown 09/09/2022 11:37 AM FLIGHT CONTROLS ENGINEER 09/09/2022 11:45 AM FLIGHT CONTROLS ENGINEER Narrative [facility] - 09/09/2022 11:45 AM FLIGHT CONTROLS ENGINEER SARS-CoV-2 antigen testing is authorized for use with nasal (Veritor, BinaxNOW, or Lynette) or nasopharyngeal (Lynette) swabs collected from individuals who are suspected of COVID-19 infection by their healthcare provider within the first five days of onset of symptoms. ??False-positive SARS-CoV-2 test results are more likely to occur when disease prevalence is low (less than 1%). False-negative SARS-CoV-2 test results are more likely to occur when disease prevalence is high (greater than 10%). This test has been authorized by the Food and Drug adminstration (FDA) under an Emergency Use Authorization (EUA). This test is only authorized for the duration of time the declaration that circumstances exist justifying the authorization of emergency use of in vitro diagnostic tests for detection of SARS-CoV-2 virus and/or diagnosis of COVID-10 infection under section 564(b)(1) of the Act, 21 U.S.C Fact Sheets for this EUA assay are available upon request. Negative results should be treated as presumptive and confirmation with a molecular assay, if necessary, for patient management decisions, including infection control decisions. Negative results should be considered in the context of a patient's recent exposures, history and the presence of clinical signs and symptoms with COVID-19. Jori Santiago MD LAB - POINT OF CARE ORDERABLES [place] [id number] [place] [address] * CT CERVICAL SPINE NON CONTRAST - suspected c-spine fracture (04/16/2022 3:41 PM CDT) Anatomical Region Laterality Modality Spine Computed Tomogra phy 04/16/2022 4:30 PM CDT Impressions 04/16/2022 4:35 PM CDT IMPRESSION: 1. No acute intracranial hemorrhage. 2. No cervical spine fracture > Interpreting Provider: Megan Bee MD on 04/16/2022 4:35 PM Narrative 04/16/2022 4:35 PM CDT PROCEDURE: ??CT HEAD WO CONTRAST, CT CERVICAL SPINE WO CONTRAST, DATE/TIME OF EXAM: ??04/16/2022 3:40 PM, LOCATION ??[facility] INDICATION: R56.9: Unspecified convulsions ([facility]) ADDITIONAL CLINICAL INFORMATION: Ordering Provider Reason For Exam: Technologist Note: Additional: COMPARISON: None. TECHNIQUE: Noncontrast CT brain and cervical spine was performed utilizing standard protocol. Coronal and sagittal reformatting was performed. FINDINGS: BRAIN FINDINGS: The brain parenchyma shows normal attenuation with preservation of jimenez-white matter interface. The ventricles and subarachnoid spaces are normal in size and position. There is no evidence of acute hemorrhage, infarct, mass, or extra-axial collection. The bony calvarium is intact. The paranasal sinuses are normal. CERVICAL SPINE FINDINGS: The cervical spine is normally aligned. The vertebrae are normal in height. There is no evidence of fracture or dislocation. The atlantodental and atlantooccipital intervals are normal. Soft tissues are unremarkable. The pulmonary apices are free of opacification. Procedure Note Megan Bee MD - 04/16/2022 PROCEDURE: CT HEAD WO CONTRAST, CT CERVICAL SPINE WO CONTRAST,DATE/TIME OF EXAM: 04/16/2022 3:40 PM, LOCATION [facility] INDICATION: R56.9: Unspecified convulsions ([facility]/HCC) ADDITIONAL CLINICAL INFORMATION: Ordering Provider Reason For Exam: Technologist Note: Additional: COMPARISON: None. TECHNIQUE: Noncontrast CT brain and cervical spine was performed utilizing standard protocol. Coronal and sagittal reformatting was performed. FINDINGS: BRAIN FINDINGS: The brain parenchyma shows normal attenuation with preservation of jimenez-white matter interface. The ventricles and subarachnoid spaces are normal in size and position. There is noevidence of acute hemorrhage, infarct, mass, or extra-axial collection. The bony calvarium is intact. The paranasal sinuses are normal. CERVICAL SPINE FINDINGS: The cervical spine is normally aligned. The vertebrae are normal in height. There is no evidence of fracture or dislocation. The atlantodental and atlantooccipital intervals arenormal. Soft tissues are unremarkable. The pulmonary apices are free of opacification. IMPRESSION: 1. No acute intracranial hemorrhage. 2. No cervical spine fracture > Interpreting Provider: Megan Bee MD on 04/16/2022 4:35 PM Zakia Hassan Igor RUSSELL CT ORDERABLES * CT HEAD NON CONTRAST - suspected intracranial hemorrhage (04/16/2022 3:40 PM CDT) Anatomical Region Laterality Modality Head Computed Tomogra phy 04/16/2022 4:30 PM CDT Impressions 04/16/2022 4:35 PM CDT IMPRESSION: 1. No acute intracranial hemorrhage. 2. No cervical spine fracture > Interpreting Provider: Megan Bee MD on 04/16/2022 4:35 PM Narrative 04/16/2022 4:35 PM CDT PROCEDURE: ??CT HEAD WO CONTRAST, CT CERVICAL SPINE WO CONTRAST, DATE/TIME OF EXAM: ??04/16/2022 3:40 PM, LOCATION ??[facility] INDICATION: R56.9: Unspecified convulsions ([facility]/HCC) ADDITIONAL CLINICAL INFORMATION: Ordering Provider Reason For Exam: Technologist Note: Additional: COMPARISON: None. TECHNIQUE: Noncontrast CT brain and cervical spine was performed utilizing standard protocol. Coronal and sagittal reformatting was performed. FINDINGS: BRAIN FINDINGS: The brain parenchyma shows normal attenuation with preservation of jimenez-white matter interface. The ventricles and subarachnoid spaces are normal in size and position. There is no evidence of acute hemorrhage, infarct, mass, or extra-axial collection. The bony calvarium is intact. The paranasal sinuses are normal. CERVICAL SPINE FINDINGS: The cervical spine is normally aligned. The vertebrae are normal in height. There is no evidence of fracture or dislocation. The atlantodental and atlantooccipital intervals are normal. Soft tissues are unremarkable. The pulmonary apices are free of opacification. Procedure Note Megan Bee MD - 04/16/2022 PROCEDURE: CT HEAD WO CONTRAST, CT CERVICAL SPINE WO CONTRAST,DATE/TIME OF EXAM: 04/16/2022 3:40 PM, LOCATION [facility] INDICATION: R56.9: Unspecified convulsions (CMS/HCC) ADDITIONAL CLINICAL INFORMATION: Ordering Provider Reason For Exam: Technologist Note: Additional: COMPARISON: None. TECHNIQUE: Noncontrast CT brain and cervical spine was performed utilizing standard protocol. Coronal and sagittal reformatting was performed. FINDINGS: BRAIN FINDINGS: The brain parenchyma shows normal attenuation with preservation of jimenez-white matter interface. The ventricles and subarachnoid spaces are normal in size and position. There is noevidence of acute hemorrhage, infarct, mass, or extra-axial collection. The bony calvarium is intact. The paranasal sinuses are normal. CERVICAL SPINE FINDINGS: The cervical spine is normally aligned. The vertebrae are normal in height. There is no evidence of fracture or dislocation. The atlantodental and atlantooccipital intervals arenormal. Soft tissues are unremarkable. The pulmonary apices are free of opacification. IMPRESSION: 1. No acute intracranial hemorrhage. 2. No cervical spine fracture > Interpreting Provider: Megan Bee MD on 04/16/2022 4:35 PM Zakia Hassan Igor RUSSELL CT ORDERABLES * (ABNORMAL) DRUG SCREEN TOX LIMITED BLD PNL 3 INHOUSE (04/16/2022 2:02 PM CDT) Acetaminophen <3.0(L) 10.0 - 30.0 ug/mL 04/16/2022 2:35 PM CDT [facility] Ethanol <10.0 <10 mg/dL 04/16/2022 2:35 PM CDT [facility] Salicylate <5.0(L) 15.0 - 30.0 mg/dL 04/16/2022 2:35 PM CDT [facility] Blood BLOOD SPECIMEN / Unknown Venipuncture / Unknown 04/16/2022 2:02 PM CDT 04/16/2022 2:10 PM CDT Narrative [facility] - 04/16/2022 2:35 PM CDT [facility] ACETAMINOPHEN COMMENT Critical values: 4 Hours Post Ingestion: Critical value ?? > 200 ??g/mL 12 Hours Post Ingestion: Critical value ??> ??50 ??g/mL For acute ingestion, please refer to Acetaminophen nomogram to determine the ??risk of toxicity ??based on time since ingestion and acetaminophen level (see link provided). Note the nomogram disclaimer. WARNING: Assessing the potential toxicity of an acetaminophen level on a standard risk nomogram must take into consideration many factors including any uncertainty of the time since ingestion or the possibility of other medications that may alter the peak level. Contact the [place] [facility] at or reserved for healthcare professionals to assist you in evaluating potentially toxic acetaminophen levels. Zakia Costa PA-C LAB - CHEMISTRY ORDEliza MOORE Performing Organization Address [facility] Co de Phone Number [facility] [id number] [place] [phone] * TROPONIN I (04/16/2022 2:02 PM CDT) Troponin I <0.010 <0.038 ng/mL 04/16/2022 2:37 PM CDT [facility] Blood BLOOD SPECIMEN / Unknown Venipuncture / Unknown 04/16/2022 2:02 PM CDT 04/16/2022 2:10 PM CDT Zakia Costa PA-C LAB - CHEMISTRY ORDE OSCAR Performing Organization Address [facility] Co de Phone Number [facility] [address] [place], [place] [id number] * (ABNORMAL) PROLACTIN (04/16/2022 2:02 PM CDT) Prolactin 30.56(H) 5.18 - 26.53 ng/mL 04/16/2022 2:58 PM CDT [facility] Blood BLOOD SPECIMEN / Unknown Venipuncture / Unknown 04/16/2022 2:02 PM CDT 04/16/2022 2:10 PM CDT Zakia Costa PA-C LAB - CHEMISTRY SALIMA MOORE [facility] [address] [place] [address] * COMPREHENSIVE METABOLIC PANEL (04/16/2022 2:02 PM CDT) Only the most recent of2 resultswithin the time period is included. Glucose 98 70 - 105 mg/dL 04/16/2022 2:32 PM CDT [facility] Sodium 139 136 - 145 mmol/L 04/16/2022 2:32 PM CDT [facility] Potassium 3.9 3.5 - 5.1 mmol/L 04/16/2022 2:32 PM CDT [facility] Chloride 107 98 - 107 mmol/L 04/16/2022 2:32 PM CDT [facility] CO2 21 20 - 28 mmol/L 04/16/2022 2:32 PM CDT [facility] Calcium 9.4 8.4 - 10.4 mg/dL 04/16/2022 2:32 PM CDT [facility] Anion Gap 11 8 - 18 mmol/L 04/16/2022 2:32 PM CDT [facility] BUN 11 7 - 18.7 mg/dL 04/16/2022 2:32 PM CDT [facility] Creatinine 0.82 0.57 - 1.11 mg/dL 04/16/2022 2:32 PM CDT [facility] Alkaline Phosphatase 104 100 - 390 U/L 04/16/2022 2:32 PM CDT [facility] ALT 11 0 - 61 U/L 04/16/2022 2:32 PM CDT [facility] AST 19 5 - 34 U/L 04/16/2022 2:32 PM CDT [facility] Protein Total 7.3 6.4 - 8.3 gm/dL 04/16/2022 2:32 PM CDT [facility] Albumin 4.3 3.4 - 5.0 gm/dL 04/16/2022 2:32 PM CDT [facility] Bilirubin Total 0.3 0.2 - 1.2 mg/dL 04/16/2022 2:32 PM CDT [facility] eGFR by CKD-EPI 2:32 PM CDT [facility] Comment:eGFR calculations ar e not performed for children <18yrs old. Blood BLOOD SPECIMEN / Unknown Venipuncture / Unknown 04/16/2022 2:02 PM CDT 04/16/2022 2:10 PM CDT Zakia Costa PA-C LAB - CHEMISTRY SALIMA MOORE [facility] [address] [place] [address] * HCG BETA BLOOD QUANTITATIVE (04/16/2022 2:02 PM CDT) hCG Quantitative <1.20 mIU/mL 04/16/20 2:56 PM CDT [facility] Blood BLOOD SPECIMEN / Unknown Venipuncture / Unknown 04/16/2022 2:02 PM CDT 04/16/2022 2:10 PM CDT Narrative [facility] - 04/16/2022 2:56 PM CDT ? hCG Reference Range, mIU/mL: ? Males ? 0-2.0 ? Non Females ? 0-6.0 ? Perimenopausal Females ages 41-55* ?0-7.7 ? Postmenopausal Females age >55* ? 0-14 ? Females, Weeks after Last Menstrual Period ?0.2-1 week ? 5-50 ?1 - 2 weeks ?50-500 ?2 - 3 weeks ?100-5000 ?3 - 4 weeks ?500-10,000 ?4 - 5 weeks ?1000-50,000 ?5 - 6 weeks ?10,000-100,000 ?6 - 8 weeks ?15,000-200,000 ?2 - 3 months ? 10,000-100,000 ?Trophoblastic Disease ?>100,000 *In higher than expected hCG in females > age 40, a serum FSH >20 IU/L makes unlikely. Zakia Costa PA-C LAB - CHEMISTRY SALIMA MOORE [facility] [address] [place] [address] * LACTIC ACID BLOOD (04/16/2022 2:02 PM CDT) Lactic Acid 1.76 <=2 mmol/L 04/16/2022 2:28 PM CDT [facility] Blood BLOOD SPECIMEN / Unknown Venipuncture / Unknown 04/16/2022 2:02 PM CDT 04/16/2022 2:11 PM CDT Zakia Costa PA-C LAB - CHEMISTRY SALIMA MOORE Performing Organization Address City/[facility]/ZIP Co de Phone Number [facility] [address] [place] [address] * EKG 12-LEAD (04/16/2022 1:59 PM CDT) Only the most recent of2 resultswithin the time period is included. Ventricular Rate 79 BPM [facility] Atrial Rate 79 BPM [facility] P-R Interval 104 ms [facility] QRS Duration ms 74 ms [facility] Q-T Interval ms 376 ms [facility] QTC Calculation (Bezet) 431 ms [facility] Calculated P [place] 27 degrees [facility] Calculated R [place] 54 degrees [facility] Calculated T [place] 22 degrees [facility] Interpretation EKG When compared with ECG of 21-DEC-2014 11:10,the significant change is the development of nonspecific T wave changes. ??Normal sinus rhythm persists. Confirmed by MD Jeremías, Flip ([id number]) on 04/17/2022 1:28:05 PM [facility] MUSE 04/16/2022 1:59 PM CDT 04/17/2022 1:28 PM CDT Zakia Costa PA-C ECG ORDERABLES Performing Organization Address [facility] Co de Phone Number [facility] * CHLAMYDIA + GC + TRICH DNA AMPL (04/14/2022 2:44 PM CDT) Chlamydia trachomatis AUGUSTO Negative Negative [facility] INSURANCE BILL GC DNA Probe Negative Negative [facility] INSURANCE BILL Trichomonas vaginalis by AUGUSTO Negative Negative [facility] INSURANCE BILL Microbiology ENTIRE ENDOCERVIX / Unknown 04/14/2022 2:44 PM CDT 04/14/2022 Narrative Resulting Agency Comment Lab Testing performed at: [address] ??Jared FOOTE [phone] Geno Perea [facility] LAB - MICROBIOLOG Y ORDERABLES Performing Organization Address City/State/[facility] Co de Phone Number [facility] INSURANCE BILL [address] [place] [address] * HCG URINE QUALITATIVE - POINT OF CARE (AMB) STL (04/14/2022) HCG Qual Urine Negative Negative HCG Urine QC NEG negative NEGATIVE - POSITIVE HCG Urine QC POS positive NEGATIVE - POSITIVE Expiration Date 2023-06-11 Lot # [id number] Urine URINE / Unknown 04/14/2022 Geno Almontesherryomid PAINT DIPPER-OFFICE ASSISTANCE LAB - POINT OF CA RE ORDERABLES * HEMOGLOBIN A1C (11/05/2020 4:01 PM CDT) Hemoglobin A1c 5.2 4.2 - 5.6 % [facility] INSURANCE BILL Comment: AVERAGE GLUCOSE MG/DL BLOOD ??103 ?mg/dL The following cutoff levels are recommended by [employer]. A1c ??> 6.5% : considered as diabetes if two separate tests > 6.5% or in an appropriate clinical setting. A1c ??5.7% - 6.4% : considered as prediabetes (suggest increa sed risk for diabetes and cardiovascular disease) Control target level: ??Should be individualized. ??< 7 ??for g eneral (non-) , ??< 8% less stringent goal, ??< 6.5 ??more stringent g Hemoglobin A1c measurements are used as an aid in the diagno sis of diabetic mellitus, as an aid to identify patients who may be at the disease. ?? This method may yield falsely low results when fe pasquale hemoglobin (HbF) exceeds 5% in the specimen. Blood BLOOD SPECIMEN / Unknown 11/05/2020 4:01 PM CDT 11/05/2020 Narrative Resulting Agency Comment Lab Testing performed at: [facility] [place] [address] [address] ?? Bubba RHODES [phone] Va Olivo MD LAB - CHEMISTRY SALIMA MOORE Performing Organization Address City/State/[facility] de Phone Number [facility] INSURANCE BILL [address] [place] [address] * (ABNORMAL) LIPID PROFILE (11/05/2020 4:01 PM CDT) [facility] Cholesterol 203(H) <200 mg/dL [facility] INSURANCE BILL Triglycerides 62 <150 mg/dL [facility] INSURANCE BILL HDL Cholesterol 62 >40 mg/dL [facility] INSURANCE BILL VLDL Calculated 12 <=30 mg/dL [facility] INSURANCE BILL LDL Calculated 129 <130 mg/dL [facility] INSURANCE BILL Blood BLOOD SPECIMEN / Unknown 11/05/2020 4:01 PM CDT 11/05/2020 Narrative Resulting Agency Comment Lab Testing performed at: [address] ?? Bubba RHODES [phone] Va Olivo MD LAB - CHEMISTRY SALIMA MOORE Performing Organization Address [facility] de Phone Number [facility] INSURANCE BILL [address] [place] [address] * (ABNORMAL) VITAMIN D (25-HYDROXY) (02/17/2017 12:45 PM CDT) [facility] Vitamin D, 25 Hydroxy 9.59(L) 30 - 100 ng/mL 02/17/2017 5:00 PM CDT [facility] Blood BLOOD SPECIMEN / Unknown Venipuncture / Unknown 02/17/2017 12:45 PM CDT 02/17/2017 12:45 PM CDT Narrative [facility] - 02/17/2017 5:00 PM CDT Vitamin D Status: ?Deficiency ? <20 ? ng/mL ?Insufficiency ?? 20-30 ??ng/mL ?Sufficiency ? 30-100 ng/mL ?Toxicity ? >100 ?ng/mL Kaci Cheatham PAINT DIPPER-OFFICE ASSISTANCE LAB - CHEMISTRY OR DERABLES [facility] [address] [place] [address] * FERRITIN (02/17/2017 12:45 PM CDT) Ferritin 40 10 - 291 ng/mL 02/17/2017 1:05 PM CDT [facility] Blood BLOOD SPECIMEN / Unknown Venipuncture / Unknown 02/17/2017 12:45 PM CDT 02/17/2017 12:45 PM CDT Kaci Chaparrita LYMANN-OFFICE ASSISTANCE LAB - CHEMISTRY OR DERABLES Performing Organization Address City/[facility]/ZIP Co de Phone Number [facility] [address] [place] [address] * (ABNORMAL) CBC W MANUAL DIFFERENTIAL (12/21/2014 10:37 AM CDT) WBC 3.6(L) 4.5 - 14.5 x10^9/L 12/21/2014 11:17 AM CDT [facility] RBC 4.89 4.00 - 5.20 x10^12/L 12/21/2014 11:17 AM CDT [facility] Hemoglobin 12.4 11.5 - 15.5 gm/dL 12/21/2014 11:17 AM CDT [facility] Hematocrit 37.3 35.0 - 45.0 % 12/21/2014 11:17 AM CDT [facility] MCV 76.3(L) 77.0 - 95.0 fl 12/21/2014 11:17 AM CDT [facility] MCH 25.4 25.0 - 33.0 pg 12/21/2014 11:17 AM CDT [facility] MCHC 33.2 31.0 - 37.0 gm/dL 12/21/2014 11:17 AM CDT [facility] RDW-CV 12.2 11.5 - 14.0 % 12/21/2014 11:17 AM CDT [facility] MPV 10.4(H) 6.0 - 9.5 fl 12/21/2014 11:17 AM CDT [facility] Platelet Count 307 100 - 400 x10^9/L 12/21/2014 11:17 AM CDT [facility] Blood BLOOD SPECIMEN / Unknown Lab Venipuncture / Unknown 12/21/2014 10:37 AM CDT 12/21/2014 11:11 AM CDT Rika Zaragoza PAINT DIPPER-OFFICE ASSISTANCE LAB - HEMATOLO GY ORDERABLES [facility] [address] [place] [address] * (ABNORMAL) DIFFERENTIAL MANUAL (12/21/2014 10:37 AM CDT) WBC Auto 3.6(L) 4.5 - 14.5 x10^9/L 12/21/2014 12:10 PM CDT [facility] WBC Corrected 4.5 - 14.5 x10^9/L 12/21/2014 12:10 PM CDT [facility] nRBC /100 WBC 12/21/2014 12:10 PM CDT [facility] Neutrophil % Manual 29 24 - 66 % 12/21/2014 12:10 PM CDT [facility] Lymphocytes % Manual 59 22 - 61 % 12/21/2014 12:10 PM CDT [facility] Monocytes % Manual 6 3 - 15 % 12/21/2014 12:10 PM CDT [facility] Eosinophils % Manual 5 0 - 10 % 12/21/2014 12:10 PM CDT [facility] Basophils % Manual 1 % 12/21/2014 12:10 PM CDT [facility] Cells Counted 100 # cells 12/21/2014 12:10 PM CDT [facility] RBC Morphology Normal 12/21/2014 12:10 PM CDT [facility] WBC Morph Normal 12/21/2014 12:10 PM CDT [facility] Platelet Estimation Normal 12/21/2014 12:10 PM CDT [facility] Blood BLOOD SPECIMEN / Unknown Lab Venipuncture / Unknown 12/21/2014 10:37 AM CDT 12/21/2014 11:11 AM CDT Rika M Zaragoza PAINT DIPPER-OFFICE ASSISTANCE LAB - HEMATOLO GY ORDERABLES Performing Organization Address [facility] Co de Phone Number [facility] [address] [place] [address] * TSH (12/21/2014 10:37 AM CDT) TSH 2.14 0.358 - 3.740 uIU/mL 12/21/2014 11:40 AM CDT [facility] Blood BLOOD SPECIMEN / Unknown Lab Venipuncture / Unknown 12/21/2014 10:37 AM CDT 12/21/2014 11:11 AM CDT Rika Gary Zaragoza PAINT DIPPER-OFFICE ASSISTANCE LAB - CHEMISTR Y ORDERABLES Performing Organization Address [facility] Co de Phone Number [facility] [address] [place] [address] * T4 TOTAL (12/21/2014 10:37 AM CDT) Pathologist [facility] T4 Total 12.0 4.7 - 13.3 ug/dL 12/21/2014 11:46 AM CDT [facility] Blood BLOOD SPECIMEN / Unknown Lab Venipuncture / Unknown 12/21/2014 10:37 AM CDT 12/21/2014 11:11 AM CDT Rika M Zaragoza PAINT DIPPER-OFFICE ASSISTANCE LAB - CHEMISTR Y ORDERABLES Performing Organization Address [facility] de Phone Number [facility] [id number] [place] [address] * LEAD BLOOD (01/24/2009 11:50 AM CDT) Lead Blood 3 mcg 0 - 14 ug/dl [facility] Specimen Type Venous [facility] BLOOD SPECIMEN / Unknown 01/24/2009 11:50 AM CDT Narrative [facility] - 01/30/2009 9:44 AM CDT 1 Resulting Agency Comment Performed By [facility] ? [address] ? [place] [address] Hannah Barron MD LAB - CHEMISTRY SALIMA MOORE Performing Organization Address [facility] Co de Phone Number [facility] [address] [place] [address] * HGB HCT PANEL (01/24/2009 11:50 AM CDT) Hemoglobin 11.9 10.0 - 15.0 gm/dl [facility] Hematocrit 35.4 30.0 - 45.0 % [facility] BLOOD SPECIMEN / Unknown 01/24/2009 11:50 AM CDT Narrative [facility] - 01/24/2009 12:01 PM CDT FAX TO [phone] Hannah Barron MD LAB - HEMATOLOGY ORD IRASEMA Performing Organization Address [facility] de Phone Number [facility] [address] [place] [address] Care Teams Weld Fitter Relationship Specialty Start Date End Date Va Olivo MD PCP - General Pediatrics 12/08/17
--- OUTSIDE RECORDS SUMMARY | 2024-07-18 03:58 | XMS_ITS | Clinical Summary ---
Author Organization [facility] Address [address] [facility] [place] [address] Care Team Providers Care Centrifugal Casting Machine Operator Name Role Phone Va Olivo MD Primary Care Provider [phone] Source Comments [facility],non-[facility] Affiliates and Associated Physician Practices is amultiple site organization consisting of ambulatory clinics and hospital sitesin [place], [place], [place] and [place]. This disclosure is being madepursuant to the Care Everywhere program and may not contain all information available regarding this patient. Last updated 18.[facility] Allergies No known active allergies Medications * Be aware that medications may not be up to date on this document. Alwaysverify current medications with the patient. Medication Sig Dispensed Refills Start Date End Date Status LESSINA-28 0.1-20 MG-MCG tabletIndications:Con traceptive Therapy,irregular periods Take 1 (one) tablet by mouth once daily Reasons: Control Treatment, irregular periods 1 packet 12 04/14/2022 Active albuterol HFA (ProAir HFA) 108 (90 Base) MCG/ACT inhalerIndications:Mi ld intermittent asthma without complication (HCC) INHALE 2 PUFFS BY MOUTH EVERY 4 HOURS NEEDED FOR WHEEZING OR COUGH; USE WITH SPACER 8 g 3 03/18/2023 Active fluticasone hfa 110 (Flovent HFA 110) 110 MCG/ACT inhaler Inhale 2 (two) puffs by mouth 2 times daily 12 g 1 03/19/2023 Active meloxicam (Mobic) 15 MG tablet Take 1 (one) tablet by mouth once daily 30 tablet 04/01/2023 Active cetirizine (ZyrTEC) 5 MG tablet Take 1 (one) tablet by mouth once daily 30 tablet 10/29/2023 Active Active Problems Patient Care Coordination No te Formatting of this note migh t be different from the original. 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): Give albuterol prn, if increase distress call-mother aware that the flu can exacerbate the flu Queen splints 11/29/2021 Poor sleep hygiene 11/29/2021 Mild intermittent asthma without complication History of syncope 12/21/2014 Resolved Problems Problem Noted Date Diagnosed Date Resolved Date Failure to attend appointment 09/16/2013 02/17/2019 Overview (09/16/2013): Letter #1 GERD (gastroesophageal reflux disease) 01/06/2005 02/17/2019 Gestation Period, 35-36 Weeks 2004 12/08/2017 Immunizations Name Administration Dates Next Due DTAP/HEP B/IPV 07/04/2005,04/08/2005,01/06/2005 DTAP/IPV 01/24/2009 DTaP VACCINE IM (6wk-6yrs) 11/05/2006 FLU VACCINE TRI IIV3 SPLIT P F IM (FLUVIRIN) 05/07/2011 HEP A PEDS 2 DOSE 11/05/2006,11/11/2005 HIB BOOSTER 11/11/2005,04/08/2005,01/06/2005 Human Papilloma Virus Nineva lent Vaccine 02/17/2017,02/01/2016 MENINGOCOCCAL CONJUGATE (MCV4P) 11/05/2020,01/31 MMR 01/24/2009,11/11/2005 PNEUMOCOCCAL PCV7 CONJ, PEDS 11/11/2005, 07/04/2005,04/08/2005,01/06 TDAP (7yrs+) 02/01/2016 VARICELLA 01/24/2009,11/11/2005 Family History Medical History Relation Name Comments None Known Father Diabetes - Type 2 Mother Diabetes - Type 2 Paternal Grandmother None Known half-brother 2 None Known half-sister 1 None Known half-sister 2 None Known half-sister 3 Relation Name Status Comments Father Alive Maternal Grandfather Maternal Grandmother Alive Mother Alive Paternal Grandfather Alive Paternal Grandmother half-brother 1 half-brother 2 Alive half-sister 1 Alive half-sister 2 Alive half-sister 3 Alive Social History Tobacco Use Types Packs/Day Years [...] Mass Index 21.26 04/08/2024 10:49 PM CDT Plan of Treatment Health Maintenance Due Date Last Done Comments PNEUMOCOCCAL VACCINE (1 of 1 - PPSV23 or PCV20) 2010 11/11/2005, 07/04/2005, 04/08/2005, Additional history exists HIV SCREENING 11/05/2019 HEPATITIS C SCREENING 10/31/2022 CHLAMYDIA/GONORRHEA SCREENING 04/14/2023 04/14/2022 DEPRESSION SCREENING 07/13/2023 12/24/2022, 11/30/19 COVID-19 VACCINE (1 - 2023-2 5 season) 2024 INFLUENZA VACCINE (#1) 2024 05/07/2011 DTAP/TDAP/TD VACCINES (7 - T d or Tdap) 01/31/2026 02/01/2016, 01/24/2009, 11/05/2006, Additional history exists ZOSTER VACCINE (1 of 2) 2054 HEPATITIS B VACCINE Completed 07/04/2005, 04/08/2005, 01/06/2005 HIB VACCINE Completed 11/11/2005, 03/14, 01/06/2005 HPV VACCINE Completed 02/17/2017, 02/01/2016 MENINGOCOCCAL VACCINE Completed 11/05/2020, 016 Goals Goal Patient Goal Type Associated Problems Recent Progress Patient-Stated? Author Yearly PCP visit Lifestyle Aster Willard, RN Note: Come into office for yearly wcc. Take recommended medication(s) Lifestyle Aster Willard, sales planning coordinator Procedure Name Priority Date/Time Associated Diagnosis Comments CHLAMYDIA + GC + TRICH DNA AMPL Routine 04/14/2022 2:44 PM CDT Well woman exam Screening for venereal disease from Last 3 Months or Most Recently Relevant to Health Maintenance Results * CHLAMYDIA + GC + TRICH DNA AMPL (04/14/2022 2:44 PM CDT) Chlamydia trachomatis AUGUSTO Negative Negative [facility] INSURANCE BILL GC DNA Probe Negative Negative [facility] INSURANCE BILL Trichomonas vaginalis by AUGUSTO Negative Negative [facility] INSURANCE BILL Microbiology ENTIRE ENDOCERVIX / Unknown 04/14/2022 2:44 PM CDT 04/14/2022 Narrative Resulting Agency Comment Lab Testing performed at: [address] ??Jared FOOTE [phone] Geno Perea CLOTHESPIN DRIER OPERATOR-PROBATION AND PATROL AGENT LAB - MICROBIOLOG Y ORDERABLES [facility] INSURANCE BILL [address] [place] [address] from Last 3 Months or Most Recently Relevant to Health Maintenance Advance Directives Documents on File Type Date Recorded Patient Miter Sawyer Expl anation Adv Directive/Living Will/POA 12/14/2013 2:19 PM Care Teams Centrifugal Casting Machine Operator Relationship Specialty Start Date End Date Va Olivo MD PCP - General Pediatrics 12/08/17
--- OUTSIDE RECORDS SUMMARY | 2024-07-18 03:58 | XMS_ITS | Encounter Summary ---
Author Organization [facility] Address [address] [place] [address] Care Team Providers Care Pit Worker Power Shovel Name Role Phone Va Olivo MD Primary Care Provider [phone] Reason for Visit * Reason Onset Date Comments General 05/22/2023 Encounter Details Date Type Department Care Team ([facility] st Contact Info) Description 05/22/2023 Telephone [facility] [id number] [place] [address] Va Olivo MD [address] [phone] [place] [address] General Social History Tobacco Use Types Packs/Day Years [...] encounter Miscellaneous Notes * Telephone Encounter - Tonia Jarvis RN - 05/22/2023 12:24 PM CST Greyson with her mother came to the clinic inquiring about a letter to have an TONNY dog. Greyson reports that she has a history of self harm starting at the age of 7, with depression and anxiety. Greyson's brother, whom she says she was very close to, was murdered in 2019. Greyson's brother's birthday is in May which makes the holidays very hard for Greyson. Per Greyson, when she gets down and hopeless she paces, begins to break things, over thinks everything and fidgets. Discussed with Dr Gallardo. Dr Gallardo wrote a letter for Greyson to have an TONNY dog. Letter uploaded and snt to Greyson through [employer] as requested. APPLIANCE INSTALLER documented in this encounter Plan of Treatment [...] on filedocumented in this encounter Care Teams Pit Worker Power Shovel Relationship Specialty Start Date End Date Va Olivo MD PCP - General Pediatrics 12/08/17 documented as of this encounter
--- OUTSIDE RECORDS SUMMARY | 2024-07-18 03:58 | XMS_ITS | Encounter Summary ---
Author Organization [facility] Address [address] [facility] [address] Care Team Providers Care Shake Sawyer Name Role Phone Va Olivo MD Primary Care Provider [phone] Encounter Details Date Type Department Care Team (Latest Contact Info) Description 04/08/2024 Travel Social History Tobacco Use Types Packs/Day [...] on filedocumented in this encounter Care Teams Shake Sawyer Relationship Specialty Start Date End Date Va Olivo MD PCP - General Pediatrics 12/08/17 documented as of this encounter
--- OUTSIDE RECORDS SUMMARY | 2024-07-18 03:58 | XMS_ITS | Referral Summary ---
Author Organization [facility] Address [address] [facility] [place] [address] Care Team Providers Care Business Development Recruiter Name Role Phone Va Olivo MD Primary Care Provider [phone] Source Comments [facility],non-research psychiatric center Affiliates and Associated Physician Practices is amultiple site organization consisting of ambulatory clinics and hospital sitesin [place], [place], [place] and [place]. This disclosure is being madepursuant to the Care Everywhere program and may not contain all information available regarding this patient. Last updated 18.[facility] Allergies No known active allergies Medications [...] original. 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 Author Yearly PCP visit Lifestyle Aster Willard, RN Note: Come into office for yearly wcc. Take recommended medication(s) Lifestyle No Aster Garnica, sports anchor Procedure Name Priority Date/Time Associated Diagnosis Comments [...] Resulting Agency Comment [facility] [address] [facility] ??Jared FOOTE [phone] Geno Perea FOOD BEVERAGE ATTENDANT-COMMUNICATIONS ADVISOR LAB - MICROBIOLOG Y ORDERABLES [facility] INSURANCE BILL [address] [place] [address] from Last 3 Months or Most Recently Relevant to Health Maintenance Advance Directives Documents on File Type Date Recorded Patient Clinical Data Programmer Expl anation Adv Directive/Living Will/POA 12/14/2013 2:19 PM Care Teams Business Development Recruiter Relationship Specialty Start Date End Date Va Olivo MD PCP - General Pediatrics 12/08/17
--- OUTSIDE RECORDS SUMMARY | 2024-07-18 03:58 | XMS_ITS | Encounter Summary ---
Author Organization [facility] Address [address] [facility] [place] [address] Care Team Providers Care Oracle Sql Developer Name Role Phone Va Olivo MD Primary Care Provider [phone] Reason for Referral * Radiology Services (Routine) - Closed Specialty Diagnoses / Procedures Referred By Contac t Referred To Contact MRI Diagnoses Pain of right tibia Procedures MRI [place] [address] [place] [address] Referral ID Status Reason Start Date Expiration Date Visits Re quested Visits Authorized [id number] Closed 04/01/2023 03/31/2024 1 1 * Radiology Services (Routine) - Closed Specialty Diagnoses / Procedures Referred By Contac t Referred To Contact MRI Diagnoses Pain in left tibia Procedures MRI [place] [address] [place] [address] Referral ID Status Reason Start Date Expiration Date Visits Re quested Visits Authorized [id number] Closed 04/06/2023 05/21/2023 1 1 Reason for Visit * Reason Comments 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 Problem HOSPITAL AIDE/jaime queen Encounter Details Date Type Department Care Team (Late st Contact Info) Description 04/01/2023 1:00 PM CDT Office Visit [facility] Orthopedics [id number] [place] [address], [address] [place] [address] [place] [address] [facility] [address] [place] [address] Pain in left tibia (Primary Dx); Pain of right tibia Social History Tobacco [...] Sign Reading Time Taken Comments Blood Pressure - - Pulse - - Temperature - - Respiratory Rate - - Oxygen Saturation - - Inhaled Oxygen Concentration - - Weight 54.4 kg (120 lb) 04/01/2023 1:04 PM CDT Height - - Body Mass Index 21.26 12/24/2022 8:48 AM CDT Body Mass Index Percentile 48.39% 04/01/2023 1:0 4 PM CDT Growth Chart: CDC (Girls, 2- 20 Years) documented in this encounter Progress Notes * Buzz Weston MD - 04/01/2023 2:55 PM CDT [facility] Orthopedic [facility] Note Patient Name: Greyson Union Date of : 2005 Date of Service: 04/01/2023 CHIEF COMPLAINT Chief Complaint Patient presents with ??? 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 Problem HOSPITAL AIDE/jaime queen HISTORY OF PRESENT ILLNESS Greyson Kevin is a 17 year old female who presents today as a new patient for evaluation of bilateral lower extremity pain, right worse than left. 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 She statesthat her mileage has increased somewhat, although she has not taken a break. The patient states that at first her pain bothered her the most when she was working out, running, or jumping all day. Shestates that now her pain has gotten to the point where it would hurt if she is lying down, ambulating on a flat surface, or ascending stairs. The patient states that her pain is constant. She states that she recently started seeing her warehouse trainer. Prior to that, she would use ice, pain patches, Biofreeze, [place], massaging, and rolling. The patient states that these would be a quick fixfor her to finish her race. She states that she would put on a Biofreeze pain patch in the middle of her race, but it would worsen. She notes her pain becomes severe and swollen, and she will get random bruising. The patient is from [place]. 03/31/2023 8:09 AM Patient-entered Ortho Intake Form Referring provider warehouse trainer Reason for visit Other Symptoms? Queen splits in both legs possibe stress fracture What are your symptoms? Pain Weakness Other If Other , please list those symptoms here. Sharp pains, throbbing, swelling, shaking, hurts outside if activity now How did this pain/injury begin? Running track on gym floor and concrete in middle school When did your pain/injury start? Sixth grade(7 years ago) Does any other area/part of your body hurt? Inner shins front if shins and back of shins Active Worker's Comp claim? No Pain level at rest 8 Pain level with activity 10 What makes your pain worse? Any movement at all meaning track sometimes even walking up or down stairs Treatments tried Rest/activity modification Home Exercises Program Other If Other , please explain those treatments here. Ice Currently employed? No Smoking status Never Alcohol intake? No Taking opioid/narcotic? No 03/31/2023 8:05 AM Patient-Reported Satisfaction Current state satisfactory? No Prior treatment? No Currently taking narcotics? No 03/31/2023 8:09 AM PROMIS Pain Interference PROMIS PI Score 70 (moderate) 03/31/2023 8:10 AM PROMIS Physical Function PROMIS PF Score 40 (mild dysfunction) 03/31/2023 8:10 AM 12/24/2022 8:56 AM 11/29/2021 10:15 AM Depression Screening PHQ-2 Score 4 (Further screening recommended) Patient Health Questionnaire-2 Score 2 2 PAST HISTORY ??? Medical: Past Medical History: Diagnosis Date ??? Anxiety disorder 2017 ??? Chlamydia 09/2021 ??? Depression 2016 ??? Gonorrhea 09/2021 ??? Mild intermittent asthma, uncomplicated ??? Seizure (CMS/HCC) happened thru out [employer] ??? Surgical: Past Surgical History: Procedure Laterality Date ??? NEGATIVE SURGICAL HISTORY SOCIAL HISTORY Social History Occupational History ??? Not on file Tobacco Use ??? Smoking status: Never ??? Smokeless tobacco: Never Vaping Use ??? Vaping Use: Never used Substance and Sexual Activity ??? Alcohol use: Never ??? Drug use: Never ??? Sexual activity: Not Currently Partners: Male control/protection: Pill Comment: menarche 12 FAMILY HISTORY Family History Problem Relation Name Age of Onset ??? Diabetes - Type 2 Mother ??? None Known Father ??? Diabetes - Type 2 Paternal Grandmother ??? None Known half-sister ??? None Known half-sister ??? None Known half-sister ??? None Known half-brother CURRENT MEDICATIONS Current Outpatient Medications on File Prior to Visit Medication Sig Dispense Refill ??? albuterol HFA (ProAir HFA) 108 (90 Base) MCG/ACT inhaler INHALE 2 PUFFS BY MOUTH EVERY 4 HOURS NEEDED FOR WHEEZING OR COUGH; USE WITH SPACER 8 g 3 ??? fluticasone hfa 110 (Flovent HFA 110) 110 MCG/ACT inhaler Inhale 2 (two) puffs by mouth 2 timesdaily 12 g 1 ??? LESSINA-28 0.1-20 MG-MCG tablet Take 1 (one) tablet by mouth once daily Reasons: Control Treatment, irregular periods 1 packet 12 No current facility-administered medications on file prior to visit. ALLERGIES No Known Allergies REVIEW OF SYSTEMS A 10-point comprehensive review of systems was reviewed by me with the patient per the registrationsheet dated today. It was then signed today and scanned into the electronic record. PHYSICAL EXAM Constitutional - General Appearance: Well developed, well groomed, well-nourished, appears stated age, height, andweight. - Vitals Neurological - Coordination: Balance is normal. - Sensation: Sensation is intact in the superficial, peroneal, deep peroneal, saphenous, and sural nerves, bilaterally. Psychiatric - Orientation to Time, Place, Person: Normal. - Attention span and Concentration: Alert. - Mood and Affect: Normal for current situation. No acute distress. Cardiovascular - Extremities: No swelling in upper or lower extremities other than described below in the extremity exam. Extremities are warm and well-perfused. Lymphatic - Examination: No pitting edema noted in the lower extremities. Musculoskeletal - Gait and Station: Bilateral pes planus alignment is noted. Hindfoot is with a slight valgus, withthe left slightly greater than the right. Recreation of hindfoot varus with bilateral heel raise. - 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: Right lower extremity - Examination - Palpation: No tenderness to palpation. No palpable defects within the right or left Achilles tendon. No tenderness to palpation over the proximal fibula. Exquisite tenderness to palpation along theposteromedial tibial cortex. Tender to palpation in the junction of the middle one-third and distalone-third tibial crest. - Range of Motion: Dorsiflexion is to 25 degrees. Plantar flexion is to 60 degrees. - Strength and Tone: 5/5 strength with dorsiflexion, plantar flexion, inversion, and eversion. - Special Tests: - Anterior Drawer: Stable. - Talar Tilt: Stable. - 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: Left lower extremity - Examination - Inspection: The skin is intact. No erythema or ecchymosis is noted. No appreciable intra-articular ankle joint effusion is noted. - Palpation: No tenderness to palpation over the proximal fibula. Exquisite tenderness to palpationalong the posteromedial tibial cortex. Tender to palpation at the junction of the distal one-third and middle one-third. - Range of Motion: Dorsiflexion is to 25 degrees. Plantar flexion is to 60 degrees - Strength and Tone: 5/5 strength with dorsiflexion, plantar flexion, inversion, and eversion. - Special Tests: - Anterior Drawer: Stable. - Talar Tilt: Stable. Skin - Examination: No lesions noted on upper or lower extremities. The skin is dry, warm and with normal turgor. ??? Vitals Wt 54.4 kg (120 lb) LMP 03/31/2022 (Approximate) BMI 21.26 kg/m?? Body mass index is 21.26 kg/m??. RESULTS Radiographs of the bilateral ankles were ordered, obtained, and interpreted from an orthopedic standpoint on today's date. These demonstrate no acute fractures or dislocations. No cortical lucencies.No periosteal reactions within the tibia or fibula on orthogonal radiographs. Well-maintained anklemortise. No evidence of patella presley or baja. Radiographs of the right tib-fib, including orthogonal views, were ordered, obtained, and interpreted from a orthopedic standpoint on today's date. These demonstrate no acute fractures or dislocations. No cortical lucencies. No periosteal reactions. ASSESSMENT - Bilateral medial tibial stress syndrome versus stress fractures PLAN Bilateral medial tibial stress syndrome. - Patient Education and Counseling: We had a discussion regarding the patient's symptoms and treatment options. The patient was instructed to avoid aggravating activities. I discussed in detail with the patient and her warehouse trainer via telephone regarding her ongoing symptoms. Given the chronicity of pain and symptoms, and the fact that this is now affecting normal daily activities, I would recommend proceeding with bilateral tibial MRIs to rule out stress fractures. The patient has attempted conservative care without resolution of her symptoms. I will provide her with a prescription for meloxicam 15 mg to be taken once daily with food. She will discontinue with any gastrointestinal upset in hopes to help minimize some of her pain and discomfort. I will also have her continue following up with her warehouse trainer at the [facility] for ongoing care, including stretches, strengthening, and modalities. I emphasized the importance of cross training to maintain her cardiovascular fitness and strength. I will also hold her out from running at this point, as thisis a precipitating cause for her acute worsening of pain, and this was relayed to her warehouse trainer, who will still have a conversation with her math coach. - Recommended Treatment: Meloxicam 15 mg once daily with food. Continue following up with her warehouse trainer at the [facility]. Cold therapy. MRIs bilateral lower extremities - Patient Agreements: The patient was in agreement with the above treatment plan. The patient will call with any concerns. INSTRUCTIONS The patient will follow up after the MRI, or as needed based upon symptoms. The patient will contact the office with any questions or concerns. This note was created for Buzz Weston MD with the assistance of auto- generated note technology on 04/01/2023 at 2:55 PM. * Tamica Cox MA - 04/01/2023 1:04 PM CDT HOSPITAL AIDE/jaime queen documented in this encounter Procedure Notes * Deya Crenshaw - 04/01/2023 1:10 PM CDTAssociated Order(s): XR TIBIA FIBULA LEFT 2VW; XR TIBIA FIBULA RIGHT 2VW Please see office note in Epic. documented in this encounter Plan of Treatment [...] Date/Time Associated Diagnosis Comments XR TIBIA FIBULA LEFT 2VW Routine 04/01/2023 1:11 PM CDT Pain in left tibia documented in [...] Epic. Buzz Weston MD DIAGNOSTIC IMAGING O RDERATONY documented in this encounter Visit Diagnoses Diagnosis Pain in left tibia- Primary Pain of right tibia Pain of right tibia Pain in left tibia Pain of right tibia Pain in left tibia documented in this encounter Care Teams Oracle Sql Developer Relationship Specialty Start Date End Date Va Olivo MD PCP - General Pediatrics 12/08/17 documented as of this encounter
--- OUTSIDE RECORDS SUMMARY | 2024-07-18 03:58 | XMS_ITS | Encounter Summary ---
Author Organization [facility] Address [address] [facility] [place] [address] Care Team Providers Care Hose Operator Name Role Phone Va Olivo MD Primary Care Provider [phone] Encounter Details Date Type Department Care Team (Latest Contact Info) Description 04/01/2023 1:15 PM CDT Ancillary Procedure [facility] Orthopedics - Radiology [address] [place] [address] [place] [address] [facility] [address] [place] [address] Pain in left tibia Social History Tobacco Use Types Packs/Day [...] this encounter Results * XR TIBIA FIBULA LEFT 2VW (04/01/2023 1:11 PM CDT) Anatomical Region Laterality Modality 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 Computed Radiogr aphy Narrative 04/01/2023 1:10 PM CDT Deya Crenshaw ? 04/13/2023 10:15 AM Please see office note in Epic. Buzz Weston MD DIAGNOSTIC IMAGING O [place] documented in this encounter Visit Diagnoses Diagnosis Pain in left tibia documented in this encounter Care Teams Hose Operator Relationship Specialty Start Date End Date Va Olivo MD PCP - General Pediatrics 12/08/17 documented as of this encounter
--- OUTSIDE RECORDS SUMMARY | 2024-07-18 03:58 | XMS_ITS | Encounter Summary ---
Author Organization [facility] Address [address] [facility] [place] [address] Care Team Providers Care Glue Jointer Operator Name Role Phone Va Olivo MD Primary Care Provider [phone] Reason for Visit * Reason Onset Date Comments MEDICATION REFILL 03/19/2023 Encounter Details Date Type Department Care Team (Late st Contact Info) Description 03/19/2023 Refill [facility] [address] , [address] [place] [address] Va Olivo MD [address] [facility] [phone] [place] [address] MEDICATION REFILL Social History Tobacco [...] encounter Miscellaneous Notes * Telephone Encounter - Tahmina Mcintyre RN - 03/19/2023 8:32 AM CDT Medication refill: Last refilled: 02/21/2019 Last visit: 12/24/2022 documented in this encounter Plan of Treatment [...] on filedocumented in this encounter Care Teams Glue Jointer Operator Relationship Specialty Start Date End Date Va Olivo MD PCP - General Pediatrics 12/08/17 documented as of this encounter
--- OUTSIDE RECORDS SUMMARY | 2024-07-18 03:58 | XMS_ITS | Encounter Summary ---
Author Organization [facility] Address [address] [facility] [place] [address] Care Team Providers Care Patent Leather Sorter Name Role Phone Va Olivo MD Primary Care Provider [phone] Encounter Details Date Type Department Care Team (Latest Contact Info) Description 03/27/2023 Travel Social History Tobacco Use Types Packs/Day [...] on filedocumented in this encounter Care Teams Patent Leather Sorter Relationship Specialty Start Date End Date Va Olivo MD PCP - General Pediatrics 12/08/17 documented as of this encounter
--- OUTSIDE RECORDS SUMMARY | 2024-07-18 03:58 | XMS_ITS | Encounter Summary ---
Author Organization [facility] Address [address] [place] [address] Care Team Providers Care Hog Ringer Name Role Phone Va Olivo MD Primary Care Provider [phone] Reason for Visit * Reason Comments Rash Headache Encounter Details Date Type Department Care Team (Late st Contact Info) Description 10/29/2023 2:00 PM CDT - 10/29/2023 3:23 PM CDT Emergency ER at [address] [address] Itchy eyes (Primary Dx) Discharge Disposition: Home or Self Care Social [...] Sign Reading Time Taken Comments Blood Pressure 130/94 10/29/2023 1:56 PM CDT Pulse 87 10/29/2023 1:56 PM CDT Temperature 37.2 ??C (99 ??F) 10/29/2023 1:56 PM CDT Respiratory Rate 19 10/29/2023 1:56 PM CDT Oxygen Saturation 100% 10/29/2023 1:56 PM CDT Inhaled Oxygen Concentration - - Weight - - Height - - Body Mass Index - - documented in this encounter Discharge Instructions * Discharge Instructions* Ruchi Chappell APRN-CNP - 10/29/2023 2:55 PM CDT . documented in this encounter Medications at Time [...] 12 g 1 03/19/2023 LESSINA-28 0.1-20 MG-MCG tabletIndications:Contr aceptive Therapy,irregular periods Take 1 (one) tablet by mouth once daily Reasons: Control Treatment, irregular periods 1 packet 12 04/14/2022 meloxicam (Mobic) 15 MG tablet Take 1 (one) tablet by mouth once daily 30 tablet 04/01/2023 ketotifen (Zaditor) 0.035 % ophthalmic solution Instill 1 (one) drop into both eyes every 12 hours for 7 days 5 mL 10/29/2023 11/05/2023 documented as of this encounter ED Notes * Ruchi Chappell APRN-CNP - 10/29/2023 2:54 PM CDT RME Note CC: Rash and Headache Provider in Triage HPI: Greyson Kevin is a 17 year old female Past Medical History: Diagnosis Date ??? Anxiety disorder 2017 ??? Chlamydia 09/2021 ??? Depression 2016 ??? Gonorrhea 09/2021 ??? Mild intermittent asthma, uncomplicated (HCC) ??? Seizure (HCC) happened thru out [employer] who presents with itchy watery bilateral eyes. No rash present on face. No eye pain. Wears contactsbut has taken them out since her eyes were itching for the last few days. Review of Systems: Primary System Noted in HPI Constitutional: No fevers or chills Eyes: itchy eyes Psychiatric: No mood changes All other ROS negative Limited Chart History: Past Medical History: Diagnosis Date ??? Anxiety disorder 2017 ??? Chlamydia 09/2021 ??? Depression 2016 ??? Gonorrhea 09/2021 ??? Mild intermittent asthma, uncomplicated (HCC) ??? Seizure (HCC) happened thru out [employer] Past Surgical History: Procedure Laterality Date ??? NEGATIVE SURGICAL HISTORY No current facility-administered medications for this encounter. Current Outpatient Medications Medication Sig Dispense Refill ??? albuterol HFA (ProAir HFA) 108 (90 Base) MCG/ACT inhaler INHALE 2 PUFFS BY MOUTH EVERY 4 HOURS NEEDED FOR WHEEZING OR COUGH; USE WITH SPACER 8 g 3 ??? cetirizine (ZyrTEC) 5 MG tablet Take 1 (one) tablet by mouth once daily 30 tablet 0 ??? fluticasone hfa 110 (Flovent HFA 110) 110 MCG/ACT inhaler Inhale 2 (two) puffs by mouth 2 timesdaily 12 g 1 ??? ketotifen (Zaditor) 0.035 % ophthalmic solution Instill 1 (one) drop into both eyes every 12 hours for 7 days 5 mL 0 ??? LESSINA-28 0.1-20 MG-MCG tablet Take 1 (one) tablet by mouth once daily Reasons: Control Treatment, irregular periods 1 packet 12 ??? meloxicam (Mobic) 15 MG tablet Take 1 (one) tablet by mouth once daily 30 tablet 0 No Known Allergies PCP: Va Olivo MD (Above may be pending completion) VS: BP 130/94 (BP Location: Left arm, Patient Position: Sitting) Pulse 87 Temp 99 ??F (37.2 ??C) (Oral) Resp 19 SpO2 100% Pertinent Physical Findings: Constitutional: vitals wnl, WDWN Head: Head normocephalic, atraumatic Eyes: conjunctiva clear ENT: no rhinorrhea Neck: neck supple, no nuchal rigidity Resp: respirations even and unlabored, lungs clear bilaterally CV: Heart RRR, no m/c/r/g Abd: nondistended Skin: warm, dry; no obvious rash Psych: Pt is alert and oriented x3 w good recall and normal affect MDM: I have reviewed all lab and imaging resulted ordered during this visit and available at the time ofthis note. Triage notes and available nursing notes reviewed. Previous medical record reviewed whenavailable. Management options include but not limited to: physical exam, laboratory testing, discussion with other providers. Plan: Rx Ketotifen and Zyrtec ICD-10-CM 1. Itchy eyes H57.9 Pt is medically stable for discharge at this time. ?? I have given the patient instructions regarding her diagnosis, expectations, follow up, and return precautions. I explained to the patient that emergent conditions may arise and to return to the ER for new, worsening, or any persistent conditions. I've explained the importance of following up with her Primary Care Physician-(or the referral physician listed below) as instructed. The patient verbalized understanding of the discharge instructions. documented in this encounter Plan of Treatment Not on file documented as of this encounter Goals Goal Patient Goal Type Associated Problems Recent Progress Patient-Stated? Author Yearly PCP visit Lifestyle Aster Willard, RN Note: Come into office for yearly wcc. Take recommended medication(s) Lifestyle No Aster Garnica, RN documented as of this encounter Visit Diagnoses Diagnosis Itchy eyes- Primary Other ill-defined disorder of eye documented in this encounter Care Teams Hog Ringer Relationship Specialty Start Date End Date Va Olivo MD PCP - General Pediatrics 12/08/17 documented as of this encounter
--- OUTSIDE RECORDS SUMMARY | 2024-07-18 03:58 | XMS_ITS | Encounter Summary ---
Author Organization [facility] Address [address] [place] [address] Care Team Providers Care Seasonal Clerk Name Role Phone Va Olivo MD Primary Care Provider [phone] Reason for Visit * Reason Onset Date Comments Question 03/02/2023 Encounter Details Date Type Department Care Team (Late st Contact Info) Description 03/02/2023 Telephone [facility] [address], [address] [place] [address] Gillian Casillas, ADMINISTRATIVE LIBRARY ASSISTANT-CODING CLERKS SUPERVISOR [address] [place] [address] Question Social History Tobacco Use Types Packs/Day Years [...] Telephone Encounter - Tahmina Mcintyre RN - 03/02/2023 3:39 PM CDT Mom called and stated that her college is wanting [employer] to have a sickle cell trait test done. Mom is wondering where to get this done? documented in this encounter Plan of Treatment Not on file documented as of this encounter Goals Goal Patient Goal Type Associated Problems Recent Progress Patient-Stated? Author Yearly PCP visit Lifestyle No Aster Garnica, ALEXA Note: Come into office for yearly wcc. Take recommended medication(s) Lifestyle No Aster Garnica, RN documented as of this encounter Visit Diagnoses Not on filedocumented in this encounter Care Teams Seasonal Clerk Relationship Specialty Start Date End Date Va Olivo MD PCP - General Pediatrics 12/08/17 documented as of this encounter
--- OUTSIDE RECORDS SUMMARY | 2024-07-18 03:59 | XMS_ITS | Encounter Summary ---
Author Organization [facility] Address [address] [place] [address] Care Team Providers Care Oil Laboratory Analyst Name Role Phone Va Olivo MD Primary Care Provider [phone] Reason for Visit * Reason Onset Date Comments Results 11/06/2020 Encounter Details Date Type Department Care Team (Late st Contact Info) Description 11/06/2020 Telephone [facility] [address] , [address] [place] [address] Gely Mares, RN Results Social History Tobacco Use Types Packs/Day Years Used Date Smoking Tobacco: Never Assessed Sex and Gender Information Value Date Recorded Sex Assigned at Not on file Gender Identity Not on file Sexual Orientation Not on file documented as of this encounter Miscellaneous Notes * Telephone Encounter - Gely Mares, RN - 11/06/2020 8:58 AM CDT Called and left message to inform parent that Dr. Olivo reviewed patient's labs and they looked ok. Patient's blood sugar and total cholesterol were mildly elevated but she wasn't fasting. ??No change in my dietary and exercise recommendations from what Dr. Olivo made during her office visit. ??Reminded parent to follow blood pressure at home, checking between 3 and 7 times each week, at different times of the day. ??Write the numbers down and bring to next office visit in [address] Olivo to review. Left office number for parent to call back and make 3 mo follow up appt and also if they have any questions or concerns. documented in this encounter Plan of Treatment Not on file documented as of this encounter Goals Goal Patient Goal Type Associated Problems Recent Progress Patient-Stated? Author Yearly PCP visit Lifestyle Aster Willard, RN Note: Come into office for yearly wcc. Take recommended medication(s) Lifestyle No Aster Garnica, ALEXA documented as of this encounter Visit Diagnoses Not on filedocumented in this encounter Care Teams Oil Laboratory Analyst Relationship Specialty Start Date End Date Va Olivo MD PCP - General Pediatrics 12/08/17 documented as of this encounter
--- OUTSIDE RECORDS SUMMARY | 2024-07-18 03:59 | XMS_ITS | Encounter Summary ---
Author Organization [facility] Address [address] [place] [address] Care Team Providers Care Stockkeeper Name Role Phone Va Olivo MD Primary Care Provider [phone] Reason for Visit * Reason Onset Date Comments Forms 02/21/2021 Physical form re parmjit for pick out hand. Encounter Details Date Type Department Care Team (Late st Contact Info) Description 02/21/2021 Telephone [facility] [address], [address] [place] [address] Shadia Shafer RN Forms (Physical form ready for pick out hand.) Social History Tobacco Use Types Packs/Day Years Used Date Smoking Tobacco: Never Assessed Sex and Gender Information Value Date Recorded Sex Assigned at Not on file Gender Identity Not on file Sexual Orientation Not on file documented as of this encounter Miscellaneous Notes * Telephone Encounter - Shadia Shafer RN - 02/21/2021 4:10 PM CDT I called mom and let her know that the physical form is ready for pick out hand. I also scanned the form into the chart. Shadia MACDONALD RN documented in this encounter Plan of Treatment [...] on filedocumented in this encounter Care Teams Stockkeeper Relationship Specialty Start Date End Date Va Olivo MD PCP - General Pediatrics 12/08/17 documented as of this encounter
--- OUTSIDE RECORDS SUMMARY | 2024-07-18 03:59 | XMS_ITS | Encounter Summary ---
Author Organization [facility] Address [address] [facility] [place] [address] Care Team Providers Care Clinical Education Coordinator Name Role Phone Va Olivo MD Primary Care Provider [phone] Reason for Visit * Reason Onset Date Comments MEDICATION REFILL 04/14/2022 Encounter Details Date Type Department Care Team (Late st Contact Info) Description 04/14/2022 Refill [facility] [address] , [address] [place] [address] Va Olivo MD [address] [facility] [phone] [place] [address] MEDICATION REFILL Social History Tobacco Use Types Packs/Day Years Used Date Smoking Tobacco: Never Smokeless Tobacco: Never Alcohol Use Standard Drinks/Week Comments Never 0 (1 standard drink = 0.6 oz pur e alcohol) Sex and Gender Information Value Date Recorded Sex Assigned at Not on file Gender Identity Not on file Sexual Orientation Not on file documented as of this encounter Miscellaneous Notes * Telephone Encounter - Heather Sampson RN - 04/14/2022 6:03 PM CDT Last seen: 11/29/21 Last refill: 11/05/20 documented in this encounter Plan of Treatment Not on file documented as of this encounter Goals Goal Patient Goal Type Associated Problems Recent Progress Patient-Stated? Author Yearly PCP visit Lifestyle Aster Willard, ALEXA Note: Come into office for yearly wcc. Take recommended medication(s) Lifestyle No Aster Garnica RN documented as of this encounter Visit Diagnoses Diagnosis Mild intermittent asthma without complication (HCC) Unspecified asthma documented in this encounter Care Teams Clinical Education Coordinator Relationship Specialty Start Date End Date Va Olivo MD PCP - General Pediatrics 12/08/17 documented as of this encounter
--- OUTSIDE RECORDS SUMMARY | 2024-07-18 03:59 | XMS_ITS | Encounter Summary ---
Author Organization [facility] Address [address] [facility] [place] [address] Care Team Providers Care Door To Door Salesman Name Role Phone Va Olivo MD Primary Care Provider [phone] Reason for Visit * Reason Comments Seizure Episodes of syncope and seizure like episodes * Evaluate (Urgent) - Closed Specialty Diagnoses / Procedures Referred By Contac t Referred To Contact Diagnoses Syncope and collapse Seizure-like activity (HCC) [place] [address] [place] [address] [place] [address] [place] [id number] Referral ID Status Reason Start Date Expiration Date V isits Requested Visits Authorized [id number] Closed Specialty Services Required 04/16/2022 04/16/2023 1 1 Encounter Details Date Type Department Care Team (Latest Contact Info) Description 05/19/2022 8:10 AM APPLE PICKING SUPERVISOR - 05/19/2022 9:59 AM APPLE PICKING SUPERVISOR Hospital Encounter [facility] - [facility]rology [address] [place] [address] [place] [address] [address] Jhonatan Nuñez MD [address] [place] [address] Discharge Disposition: Home or Self Care Social [...] suspected to have Coronavirus/COVID-19? No / Unsure 05/19/2022 9:59 AM APPLE PICKING SUPERVISOR documented as of this encounter Last Filed Vital Signs Vital Sign Reading Time Taken Comments Blood Pressure - - Pulse - - Temperature - - Respiratory Rate - - Oxygen Saturation - - Inhaled Oxygen Concentration - - Weight 54.3 kg (119 lb 11.4 oz) 05/19/2022 8:28 AM APPLE PICKING SUPERVISOR Height 159 cm (5' 2.6 ) 05/19/2022 8:28 AM APPLE PICKING SUPERVISOR Body Mass Index 21.48 05/19/2022 8:28 AM APPLE PICKING SUPERVISOR Body Mass Index Percentile 54.73% 05/19/2022 8:2 8 AM APPLE PICKING SUPERVISOR Growth Chart: [facility] (Girls, 2- 20 Years) documented in this encounter Discharge Instructions * Patient Instructions* Jil Brito MD - 05/19/2022 9:23 AM APPLE PICKING SUPERVISOR It was a pleasure seeing Journey today. You have Orthostasis, this is usually outgrown. Please try to drink at least 8- 10 glasses of water,3 meals per day (try to include salty foods), and get 8-10 hours of sleep per night. You will have your EEG this afternoon, we will follow up on the results. Please try to capture one of these spells on video. You can send it to us, please call our office for the instructions on how to do this. We will see you back in 3-months. Please let us know if you have any questions or concerns. E PICKING SUPERVISOR documented in this encounter Medications at Time [...] as of this encounter Progress Notes * Jil Brito MD - 05/19/2022 8:36 AM CST Images from the original note were not included. Pediatric Neurology Clinic new Visit Patient Name: Greyson Kevin : 2005 Date of Encounter: 05/19/2022 I had the pleasure of seeing your patient, Greyson in the Neurology Clinic at [facility]. She was accompanied by her Mother. Greyson is a 16 year old female with a PMHx of syncopal events and asthma who presents to clinic for concerns of seizure-like events. Mother reports that on April 16, she was being fitted for a homecoming dress when she passed out. Mom describes her eyes rolling back and Greyson reports that shehad a headache behind her eyes, her lips get cold, and her breathing slows down. Mom reports that she was out for about 5 minutes. She did hit her head. She had no associated incontinence or shaking.Greyson has no recollection of the event. About 10 minutes later she got up and passed out again, she was then out for about 4 hours. She was brought to the ED, where a CTH was done and was reassuring. Preliminary labs were done and also reassuring. Mom reports that she had syncopal events as a child, which she terms 'sleep seizures.' They startedaround 1st grade would occur about 1-2x per year. Her last one was in 6th or 7th grade. Mom describes similar events, her eyes would roll up and she would faint (either from standing or sitting). There was no associated shaking or incontinence. These would typically last for 15 minutes and Greyson would not remember them. Greyson denies any prodromal symptoms. Mom reports that Greyson does have a lot of anxiety and may have depression. She has been seen by atherapist in the past. Greyson's brother suddenly 5 years ago and this has affected her. She typically eats only one meal per day, drinks only 2x 16oz bottles of water per day, and only sleeps 5-6 hrs per night. She does get headaches every day she reports. BHx: FT, , No NICU stay. Other PMHx: -Asthma, well controlled. On Albuterol PRN. FHx: No hx of seizures or headaches. Dev Hx: Met all milestones on time, no regression. Social: Lives with mom, step-dad, and two siblings. Senior in , wants to go to college, plans to go to law school. Current Medications Current Outpatient Medications: ??? albuterol HFA (ProAir HFA) 108 (90 Base) MCG/ACT inhaler, INHALE 2 PUFFS BY MOUTH EVERY 4 HOURSAS NEEDED FOR WHEEZING OR COUGH; USE WITH SPACER ??? LESSINA-28 0.1-20 MG-MCG tablet, 1 tablet, Oral, QDAY Allergies No Known Allergies Review of Systems Review of Systems Constitutional: Negative for diaphoresis and fever. HENT: Negative for ear discharge, sinus pain and sore throat. Eyes: Negative for discharge and redness. Respiratory: Negative for cough, shortness of breath and wheezing. Cardiovascular: Negative for chest pain and palpitations. Gastrointestinal: Negative for abdominal pain, constipation, diarrhea, nausea and vomiting. Genitourinary: Negative for hematuria. Musculoskeletal: Positive for falls. Skin: Negative for itching and rash. Neurological: Positive for headaches. Endo/Heme/Allergies: Does not bruise/bleed easily. Psychiatric/Behavioral: The patient is nervous/anxious. Vital Signs Height: Height: 159 cm (5' 2.6 ) Weight: Weight: 54.3 kg (119 lb 11.4 oz) 45 %ile (Z= -0.14) based on CDC (Girls, 2-20 Years) [id number] data using vitals from 04/16/2022 from contact on 04/16/2022. Blood Pressure: BP Readings from Last 1 Encounters: 04/16/22 137/85 (>99 %, Z >2.33 / 98 %, Z = 2.05)* *BP percentiles are based on the 2017 AAP Clinical Practice Guideline for girls Head Circumference: No head circumference on file for this encounter. No blood pressure reading on file for this encounter. Body mass index is 21.48 kg/m??. 27 %ile (Z= -0.62) based on CDC (Girls, 2-20 Years) [id number] data based on Stature recorded on 05/19/2022. 44 %ile (Z= -0.16) based on [facility] (Girls, 2-20 Years) [id number] data using vitals from 05/19/2022. 55 %ile (Z= 0.12) based on CDC (Girls, 2-20 Years) BMI-for-age based on BMI available as of 05/19/2022. Physical Exam General: well developed, well nourished CV: RRR Resp: CTAB Abdomen: S, NT, BS+ Extr: No edema, +2 pulses Neurological Exam: MS: awake, alert, appropriate. Normal mood, affect and speech. Cranial Nerves: II: Visual pérez intact, Fundoscopic exam normal III:PERRLA III,IV,: EOMI V: Facial sensation intact and symmetric VII: Facial expressions symmetric VIII: Hearing intact to finger rub bilaterally IX: Palate elevates symmetrically X: Uvula midline XI: Shoulder shrug strong bilaterally XII: Tongue protrudes midline Motor: Abnormal Movements: none Bulk: normal Tone: normal Reflexes: 2+ throughout, plantar reflex downgoing Strength: 5/5 in all extremities Sensory: Intact to light touch, temperature and vibration Cerebellar: Normal FNF, HTOMAS's, no dysdiadochokinesia, steady in Romberg stance Gait: Normal toe/heel/tandem walk Assessment and Plan Journey Union is a 16-year-old female with a PMHx of syncope, anxiety, and asthma who presents to clinic for concerns of seizure-like events. She may have a component of Orthostasis, and given her history of anxiety and depression she may also have a component of PNES. Will have an EEG today to assess for any epileptic concerns, however this is less likely given the nature of her events. Recommended lifestyle changes including eating consistent meals, getting adequate sleep, and increasing water intake. Follow-Up Return in about 3 months (around 08/19/2022). Jil Brito MD CC: [place] [id number] [place] [facility] [place] [id number] Date: 05/19/2022 10:54 AM E PICKING SUPERVISOR Associated attestation - Jhonatan Nuñez MD - 05/21/2022 9:03 AM APPLE PICKING SUPERVISOR I have seen and examined the patient with the Fellow/Resident/Student and agree with the assessmentand plan. I have repeated the critical portions of the exam. S: 16 year old female Prodrome: headache, lips cold, seeing spots, tried to grab onto something, but then woke up on the floor. No incontinence. No stiffening/twitching/jerking. This episode was recurring intermittently for 4 hours. Occurred while trying on a loose homecoming dress without any clear stress-related provocation. She has not been sleeping or eating well. She has poor fluid intake. No illness Brother passing away was a significant stressor. Brother had also been shot in the past. O: MS: awake, alert, and interactive. A&Ox3. Flat affect. Cranial Nerves: II: Visual pérez intact to counting fingers bilaterally by confrontation, fundoscopy shows sharp discs bilaterally III:Pupils are equal and briskly reactive from 5 to 3 mm bilaterally III,IV,: Extraocular muscles intact with no nystagmus or ptosis. V: Facial sensation intact to light touch bilaterally VII: Facial expressions symmetric VIII: Hearing intact to finger rub bilaterally IX: Palate elevates symmetrically X: Uvula midline XI: Shoulder shrug strong bilaterally XII: Tongue protrudes midline Motor: Abnormal Movements: none Bulk: appropriate Tone: normal Strength: 5/5 in all extremities Reflexes: 2+ throughout, plantar reflex downgoing Sensory: Intact to light touch Cerebellar: Normal FNF Steady in Romberg stance Gait: Normal, toe, heel, and tandem gait intact. A/P: orthostatic syncope vs PNES. Epileptic seizure seems less likely. Meeting some criteria for depression today. EEG today Lifestyle modifications Increase fluid/salt intake Video spells Discuss anxiety/depression with PCP Restart therapy/psychology Bob Nuñez MD Pediatric Neurology documented in this encounter Plan of Treatment Scheduled Referrals Name Type Priority Associated Diagnoses Orde r Schedule [facility] Outpatient Referral Routine Syncope and collapse Seizure-like activity (HCC) Neck pain Ordered: 04/16/2022 documented as of this encounter Goals Goal Patient Goal Type Associated Problems Recent Progress Patient-Stated? Author Yearly PCP visit Lifestyle Aster Willard RN Note: Come into office for yearly wcc. Take recommended medication(s) Lifestyle No Aster Garnica RN documented as of this encounter Visit Diagnoses Diagnosis Syncope, unspecified syncope type- Primary documented in this encounter Care Teams Door To Door Salesman Relationship Specialty Start Date End Date Va Olivo MD PCP - General Pediatrics 12/08/17 documented as of this encounter
--- OUTSIDE RECORDS SUMMARY | 2024-07-18 03:59 | XMS_ITS | Encounter Summary ---
Author Organization [facility] Address [address] [place] [address] Care Team Providers Care Law Writer Name Role Phone Va Olivo MD Primary Care Provider [phone] Reason for Visit * Reason Onset Date Comments Results 05/19/2022 Encounter Details Date Type Department Care Team (Late st Contact Info) Description 05/19/2022 Telephone [facility] - Neurology [facility] [facility] [place] [address] Jhonatan Nuñez MD [facility] [place] [address] Results Social History Tobacco Use Types Packs/Day [...] Coronavirus/COVID-19? No / Unsure 05/19/2022 9:59 AM JUNIOR ANALYST documented as of this encounter Miscellaneous Notes * Telephone Encounter - Shadia Covington RN - 05/21/2022 11:29 AM CST Relayed normal EEG result to parent. Mother request letter for school be faxed to [facility], fax [phone], completed. Aware to call back for appt in Aug 2022. OR ANALYST * Telephone Encounter - Jhonatan Nuñez MD - 05/20/2022 5:02 PM JUNIOR ANALYST EEG normal. Dr. Brito drafted a letter stating these episodes were not epileptic and that she should be allowedto sit down to prevent a syncopal episode and can recover in the nurses office etc. Maybe it wasn'tprinted out at the visit? But I thought it was. OR ANALYST * Telephone Encounter - Shadia Covington RN - 05/20/2022 4:37 PM CST Of note, EEG is resulted: INTERPRETATION: This EEG recorded in the awake and asleep states is within normal limits for age. ?? CLINICAL CORRELATION The diagnosis of a seizure remains a clinical one. A normal EEG does not exclude this diagnosis. However, there are no epileptiform features in this recording to suggest an underlying diagnosis of epilepsy. Therefore, clinical correlation is recommended. ?? EKG is obtained for the purpose of identifying artifact and will not be interpreted. Dr. Nuñez, please re view and advise back on letter needs for school, etc OR ANALYST * Telephone Encounter - Shadia Covington RN - 05/19/2022 11:07 AM CST Received call from EEG scheduling that mother is requesting SAP for school. States she requested in clinic, however, did not received a copy in her AVS from visit this AM. Of note, patient to have EEG completed as unclear if event of epileptic nature vs PNES. Dr. Nuñez, will await EEG results to further advise on form for school for PNES vs SAP? OR ANALYST documented in this encounter Plan of Treatment Not on file documented as of this encounter Goals Goal Patient Goal Type Associated Problems Recent Progress Patient-Stated? Author Yearly PCP visit Lifestyle Aster Willard, RN Note: Come into office for yearly wcc. Take recommended medication(s) Lifestyle No Aster Garnica, RN documented as of this encounter Visit Diagnoses Not on filedocumented in this encounter Care Teams Law Writer Relationship Specialty Start Date End Date Va Olivo MD PCP - General Pediatrics 12/08/17 documented as of this encounter
--- OUTSIDE RECORDS SUMMARY | 2024-07-18 03:59 | XMS_ITS | Encounter Summary ---
Author Organization [facility] Address [address] [address] Care Team Providers Care Transmission Operator Name Role Phone Va Olivo MD Primary Care Provider [phone] Encounter Details Date Type Department Care Team (Late st Contact Info) Description 02/15/2020 Patient Outreach [facility] [address] , [address] [place] [address] Susan Castañeda, RN Social History Tobacco Use Types Packs/Day Years Used Date Smoking Tobacco: Never Assessed Sex and Gender Information Value Date Recorded Sex Assigned at Not on file Gender Identity Not on file Sexual Orientation Not on file documented as of this encounter Progress Notes * Susan Castañeda RN - 02/15/2020 1:19 PM CDT Received notification from [place] Bello patient has been discharged from the [facility] program. May be re-enrolled at a later time provided they meet criteria. documented in this encounter Plan of Treatment Not on file documented as of this encounter Goals Goal Patient Goal Type Associated Problems Recent Progress Patient-Stated? Author Yearly PCP visit Lifestyle Aster Willard, RN Note: Come into office for yearly wcc. Take recommended medication(s) Lifestyle No Aster Garnica, RN documented as of this encounter Visit Diagnoses Not on filedocumented in this encounter Care Teams Transmission Operator Relationship Specialty Start Date End Date Va Olivo MD PCP - General Pediatrics 12/08/17 documented as of this encounter
--- OUTSIDE RECORDS SUMMARY | 2024-07-18 03:59 | XMS_ITS | Encounter Summary ---
Author Organization [facility] Address [address] [place] [address] Care Team Providers Care Foam Molder Name Role Phone Va Olivo MD Primary Care Provider [phone] Reason for Visit * Reason Comments Well Women Exam Encounter Details Date Type Department Care Team (Latest Contact Info) Description 04/14/2022 1:45 PM CDT Office Visit [facility] Medical [facility] - ACCOUNTING CONSULTANT [id number] [address] Geno Perea APRN-MANAGER UNDERWRITING [id number] [phone] Well woman exam (Primary Dx); Screening for venereal disease; Primary oligomenorrhea Social History Tobacco Use Types Packs/Day Years [...] Recorded In the last 10 days, have allen quiroga been in contact with someone who was confirmed or suspected to have Coronavirus/COVID-19? No / Unsure 04/17/2022 1:22 PM CDT documented as of this encounter Last Filed Vital Signs Vital Sign Reading Time Taken Comments Blood Pressure 108/62 04/14/2022 2:00 PM CDT Pulse - - Temperature - - Respiratory Rate - - Oxygen Saturation - - Inhaled Oxygen Concentration - - Weight 54.4 kg (120 lb) 04/14/2022 2:00 PM CDT Height 157.5 cm (5' 2 ) 04/14/2022 2:00 PM CDT Body Mass Index 21.95 04/14/2022 2:00 PM CDT Body Mass Index Percentile 60.53% 04/14/2022 2:0 0 PM CDT Growth Chart: [facility] (Girls, 2- 20 Years) documented in this encounter Progress Notes * Geno Perea APRN-CNP - 04/16/2022 8:42 AM CDT Please notify patient that her trichomonas, gonorrhea and chlamydia tests were negative * Geno Perea APRN-CNP - 04/14/2022 1:54 PM CDT Chief Complaint Patient presents with ??? Well Women Exam This is a new patient for Dr Webber Well Woman Yearly Exam (Premenopausal) HISTORY: Greyson Kevin is a 16 year old No obstetric history on file. female, Patient's last menstrual period was 03/31/2022 (approximate)., here for a Well Woman exam. Current bleeding pattern: h/o irregular periods since menarche, sometimes skipped a few months at atime, has not had evaluation. Started LEANN [facility] spring ([facility]) and had monthly cycles on pills. She stopped her pills for a few months and restarted them in February. Sexually active no. 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 Some vaginal discharge, no itching or irritation, no dysuria, no odor Past Medical History: Diagnosis Date ??? Anxiety disorder 2017 ??? Chlamydia 09/2021 ??? Depression 2017 ??? Gonorrhea 09/2021 ??? Mild intermittent asthma, uncomplicated ??? Seizure (CMS/HCC) happened thru out [employer] Past Surgical History: Procedure Laterality Date ??? NEGATIVE SURGICAL HISTORY Social History Socioeconomic History ??? Marital status: Single Spouse name: Not on file ??? Number of children: Not on file ??? Years of education: Not on file ??? Highest education level: Not on file Occupational History ??? Not on file Tobacco Use ??? Smoking status: Never Smoker ??? Smokeless tobacco: Never Used Vaping Use ??? Vaping Use: Never used Substance and Sexual Activity ??? Alcohol use: Never ??? Drug use: Never ??? Sexual activity: Not Currently Partners: Male control/protection: Pill Comment: menarche 12 Other Topics Concern ??? Not on file Social History Narrative ??? Not on file Social Determinants of Health Financial Resource Strain: Not on file Food Insecurity: Not on file Transportation Needs: Not on file Physical Activity: Not on file Stress: Not on file Social Connections: Not on file Intimate Partner Violence: Not on file Housing Stability: Not on file No Known Allergies OB History No obstetric history on file. Family History Problem Relation Name Age of Onset ??? Diabetes - Type 2 Mother ??? None Known Father ??? Diabetes - Type 2 Paternal Grandmother ??? None Known half-sister ??? None Known half-sister ??? None Known half-sister ??? None Known half-brother Review of Systems Constitutional: No weight or appetite changes. EENT: No sore throat, cough, runny nose, visual changes. CV: No palpitations or chest pain. Able to walk one flight of steps. Respiratory: No shortness of breath. GI: No nausea, diarrhea, constipation. : No dysuria MS: No weakness or pain. Skin: No rash, or changing moles. Psychiatric: denies depression. EXAMINATION BP 108/62 Ht 5' 2 Wt 120 lb Body mass index is 21.95 kg/m??. NEURO: The patient is oriented x3. NAD. HEENT: Normocephalic, atraumatic. Pupils equally round. NECK: Supple and symmetrical, without any masses. Thyroid is normal without any masses or enlargement. Trachea is midline. BREASTS: Nontender, without any masses or discharge. No tissue texture changes or dimpling. The patient is counseled on breast self-exam. ABDOMEN: No masses or tenderness noted. There is no liver or spleen enlargement. No evidence of hernia. EXT: Nontender, nonedematous, full range of motion. LYMPHATIC: No supraclavicular, axillary or inguinal adenopathy. EGBUS: Without any lesions or abnormalities. Normal Bartholin's and [place]'s. Vagina: Moist, pink rugae without any lesions. Well supported with no evidence of relaxation. Discharge: normal and physiologic. Wet mount and KELLY negative Cervix: Closed, without any lesions. Uterus: Small, mobile, nontender. Well supported. Adnexa: Nontender without palpable masses. Urinary: Urethral meatus normal without palpable masses. Urethra without masses or tenderness. No suprapubic tenderness associated with bladder. Rectovaginal: Deferred. ASSESSMENT ICD-10-CM 1. Well woman exam Z01.419 CHLAMYDIA + GC + TRICH DNA AMPL 2. Screening for venereal disease Z11.3 CHLAMYDIA + GC + TRICH DNA AMPL 3. Primary oligomenorrhea N91.3 HCG URINE QUALITATIVE - POINT OF CARE (AMB) STL TSH HI LOW REFLEX T4 PLAN 1. Preventative medicine: No pap based on guidelines. Screen for CT/GC: yes Breast self exam reviewed, patient encouraged to perform monthly. Safe sex discussed. 2. H/o oligomenorrhea, currently on pills will continue with LEANN check TSH, other labs deferred due to hormonal contraception Orders Placed This Encounter ??? CHLAMYDIA + GC + TRICH DNA AMPL ??? TSH HI LOW REFLEX T4 ??? HCG URINE QUALITATIVE - POINT OF CARE (AMB) STL ??? LESSINA-28 0.1-20 MG-MCG tablet e documented in this encounter Plan of Treatment Scheduled Orders Name Type Priority Associated Diagnoses Orde r Schedule TSH HI LOW REFLEX T4 Lab Routine Primary oligomenorrhea Ordered: 04/14/2022 documented as of this encounter Goals Goal Patient Goal Type Associated Problems Recent Progress Patient-Stated? Author Yearly PCP visit Lifestyle Aster Willard, RN Note: Come into office for yearly wcc. Take recommended medication(s) Lifestyle Aster Willard, RN documented as of this encounter Procedures Procedure Name Priority Date/Time Associated Diagnosis Comments CHLAMYDIA + GC + TRICH DNA AMPL Routine 04/14/2022 2:44 PM CDT Well woman exam Screening for venereal disease HCG URINE QUALITATIVE - POINT OF CARE (AMB) STL Routine 04/14/2022 Primary oligomenorrhea documented in this encounter Results * CHLAMYDIA + GC + TRICH DNA AMPL (04/14/2022 2:44 PM CDT) Chlamydia trachomatis AUGUSTO Negative Negative [facility] INSURANCE BILL GC DNA Probe Negative Negative [facility] INSURANCE BILL Trichomonas vaginalis by AUGUSTO Negative Negative [facility] INSURANCE BILL Microbiology ENTIRE ENDOCERVIX / Unknown 04/14/2022 2:44 PM CDT 04/14/2022 Narrative Resulting Agency Comment Lab Testing performed at: [address] ??[facility] [id number] Geno PRASAD [facility] - MICROBIOLOG Y ORDERABLES [facility] INSURANCE BILL [address] [place] [address] * HCG URINE QUALITATIVE - POINT OF CARE (AMB) STL (04/14/2022) HCG Qual Urine Negative Negative HCG Urine QC NEG negative NEGATIVE - POSITIVE HCG Urine QC POS positive NEGATIVE - POSITIVE Expiration Date 2023-06-11 Lot # [id number] Urine URINE / Unknown 04/14/2022 [facility] - POINT OF CA RE ORDERABLES documented in this encounter Visit Diagnoses Diagnosis Well woman exam- Primary Routine general medical examination at a health care facility Screening for venereal disease Screening examination for venereal disease Primary oligomenorrhea Scanty or infrequent menstruation documented in this encounter Care Teams Foam Molder Relationship Specialty Start Date End Date Va Olivo MD PCP - General Pediatrics 12/08/17 documented as of this encounter
--- OUTSIDE RECORDS SUMMARY | 2024-07-18 03:59 | XMS_ITS | Encounter Summary ---
Author Organization [facility] Address [address] [facility] [place] [address] Care Team Providers Care Dopster Name Role Phone Va Olivo MD Primary Care Provider [phone] Susan Castañeda RN Unavailable Unavailabl e Encounter Details Date Type Department Care Team (Late st Contact Info) Description 2019 Patient Outreach [facility] [address] , [address] [place] [address] Susan Castañeda, RN Social History Tobacco Use Types Packs/Day Years Used Date Smoking Tobacco: Never Assessed Sex and Gender Information Value Date Recorded Sex Assigned at Not on file Gender Identity Not on file Sexual Orientation Not on file documented as of this encounter Progress Notes * Susan Castañeda RN - 2019 1:42 PM CDT Chart reviewed per [facility] protocol for possible enrollment, meets criteria. Enrollment form sent to [facility], await reply. documented in this encounter Plan of Treatment Not on file documented as of this encounter Visit Diagnoses Not on filedocumented in this encounter Care Teams Dopster Relationship Specialty Start Date End Date Va Olivo MD PCP - General Pediatrics 12/08/17 Susan Castañeda, RN Registered Nurse Care Management 11/04/19 02/01/20 documented as of this encounter
--- OUTSIDE RECORDS SUMMARY | 2024-07-18 03:59 | XMS_ITS | Encounter Summary ---
Author Organization [facility] Address [address] [place] [address] Care Team Providers Care Data Support Specialist Name Role Phone Va Olivo MD Primary Care Provider [phone] Reason for Visit * Reason Onset Date Comments Sports Physical 02/08/2021 Encounter Details Date Type Department Care Team (Late st Contact Info) Description 02/08/2021 Telephone [facility] [address], [address] [place] [address] Gely Mares, RN Sports Physical Social History Tobacco Use Types Packs/Day Years Used Date Smoking Tobacco: Never Assessed Sex and Gender Information Value Date Recorded Sex Assigned at Not on file Gender Identity Not on file Sexual Orientation Not on file documented as of this encounter Miscellaneous Notes * Telephone Encounter - Gely Mares RN - 02/08/2021 11:11 AM CDT Mom wanting to know if Dr. Bernardo can fill out a sports physical for Journey from the visit back in October with Dr. Olivo. Let mom know typically we need to see them in office but I can see if a provider feels she can sufficiently fill the form out for her and call her back with yes or no. Mom verbalized understanding and agreeable to plan. documented in this encounter Plan of Treatment Not on file documented as of this encounter Goals Goal Patient Goal Type Associated Problems Recent Progress Patient-Stated? Author Yearly PCP visit Lifestyle Aster Willard, RN Note: Come into office for yearly wcc. Take recommended medication(s) Lifestyle No Aster Garnica, RN documented as of this encounter Visit Diagnoses Not on filedocumented in this encounter Care Teams Data Support Specialist Relationship Specialty Start Date End Date Va Olivo MD PCP - General Pediatrics 12/08/17 documented as of this encounter
--- OUTSIDE RECORDS SUMMARY | 2024-07-18 03:59 | XMS_ITS | Encounter Summary ---
Author Organization [facility] Address [address] [facility] [place] [address] Care Team Providers Care Nanoscience Technician Name Role Phone Va Olivo MD Primary Care Provider [phone] Reason for Referral * Neurology (Routine) - Closed Specialty Diagnoses / Procedures Referred By Contac t Referred To Contact Electrophysiology Diagnoses Seizure (HCC) Procedures EEG AWAKE AND ASLEEP Jhonatan Nuñez MD [address] [place] [id number] [facility] [address] [place] [address]. [place] [address] Referral ID Status Reason Start Date Expiration Date Visits Re quested Visits Authorized [id number] Closed 05/13/2022 05/13/2023 1 1 Reason for Visit * Reason Onset Date Comments Appointment 05/13/2022 Encounter Details Date Type Department Care Team (Late st Contact Info) Description 05/13/2022 Telephone [facility] - Neurology [address] [place] [id number] [facility] Update Information Appointment Social History Tobacco Use Types Packs/Day Years [...] PM CDT documented as of this encounter Miscellaneous Notes * Telephone Encounter - Isatu Cagle - 05/13/2022 4:25 PM CDT EEG appointment has been scheduled * Addendum Note - Bao Portillo RN - 05/13/2022 1:56 PM CDTAddended by: BAO PORTILLO on: 05/13/2022 01:56 PM Modules accepted: Orders * Telephone Encounter - Bao Portillo RN - 05/13/2022 1:56 PM CDT rEEG order placed. * Telephone Encounter - Devi Becker - 05/13/2022 1:41 PM CDT Referral received to [facility] Neurology. Referral Reason: Syncope and collapse Seizure-like activity Referring Source: ANTONIO BLUM Insurance Carrier: [facility] Scheduling Plan: General Neuro: yes NOS: h/o of seizure EEG: yes Appointment scheduled for 05/19 at 9:[address] Nuñez. Please place EEG order and schedule appt. documented in this encounter Plan of Treatment Not on file documented as of this encounter Goals Goal Patient Goal Type Associated Problems Recent Progress Patient-Stated? Author Yearly PCP visit Lifestyle Aster Willard, RN Note: Come into office for yearly wcc. Take recommended medication(s) Lifestyle No Aster Garnica, RN documented as of this encounter Visit Diagnoses Diagnosis Seizure (HCC)- Primary Other convulsions documented in this encounter Care Teams Nanoscience Technician Relationship Specialty Start Date End Date Va Olivo MD PCP - General Pediatrics 12/08/17 documented as of this encounter
--- OUTSIDE RECORDS SUMMARY | 2024-07-18 03:59 | XMS_ITS | Encounter Summary ---
Author Organization [facility] Address [address] [place] [address] Care Team Providers Care Metal Control Coordinator Name Role Phone Va Olivo MD Primary Care Provider [phone] Reason for Visit * Reason Comments Asthma Encounter Details Date Type Department Care Team (Late st Contact Info) Description 09/09/2022 11:10 AM SENIOR C SOFTWARE DEVELOPER - 09/09/2022 11:59 AM SENIOR C SOFTWARE DEVELOPER Hospital Encounter [facility] [address] [place] [address] [phone] Jori Santiago MD Retired per [id number] 09/11/2023 Social History Tobacco Use Types Packs/Day Years [...] Sign Reading Time Taken Comments Blood Pressure 122/72 09/09/2022 11:31 AM SENIOR C SOFTWARE DEVELOPER Pulse 118 09/09/2022 11:31 AM SENIOR C SOFTWARE DEVELOPER Temperature 36.4 ??C (97.5 ??F) 09/09/2022 11:31 AM C Respiratory Rate 20 09/09/2022 11:31 AM SENIOR C SOFTWARE DEVELOPER Oxygen Saturation - - Inhaled Oxygen Concentration - - Weight 57.6 kg (127 lb) 09/09/2022 11:31 AM SENIOR C SOFTWARE DEVELOPER Height 161 cm (5' 3.39 ) 09/09/2022 11:31 AM SENIOR C SOFTWARE DEVELOPER Body Mass Index 22.22 09/09/2022 11:31 AM SENIOR C SOFTWARE DEVELOPER Body Mass Index Percentile 61.78% 09/09/2022 11: 31 AM SENIOR C SOFTWARE DEVELOPER Growth Chart: [facility] (Girls, 2- 20 Years) documented in this encounter Medications at Time of Discharge Medication Sig Dispensed Refills Start Date End Date 0.1-20 MG-MCG tabletIndications:Contra ceptive Therapy,irregular periods Take [...] as of this encounter Progress Notes * Jori Santiago MD - 09/09/2022 11:28 AM CST Images from the original note were not included. Division of [facility] [place] [address] ??? Name: Greyson Kevin Age: [age] year old 10 month old Sex: female Date: 09/09/2022 : [facility] Acute Visit Chief Complaint Asthma Greyson Kevin is a 16 year old female that was seen today at the [facility] [place] [facility] for an Acute Visit. She was accompanied today by her mother. Cough,wheezing since Thursday night, albuterol x 1 yesterday,2x today-not helping Poor apetite but drinking ok, + fever Current Medications Current Outpatient Medications Medication ??? albuterol HFA (ProAir HFA) 108 (90 Base) MCG/ACT inhaler ??? LESSINA-28 0.1-20 MG-MCG tablet Current Facility-Administered Medications Medication ??? albuterol (Proventil;Ventolin) (2.5 MG/3ML) 0.083% nebulizer solution 2.5 mg History Past Medical History: Diagnosis Date ??? Anxiety disorder 2016 ??? Chlamydia 09/2021 ??? Depression 2016 ??? Gonorrhea 09/2021 ??? Mild intermittent asthma, uncomplicated ??? Seizure (CMS/HCC) happened thru out [facility] Allergies Patient has no known allergies. Immunizations Up to date Vitals and Growth Parameters Temp: 97.5 ??F (36.4 ??C) Height: 161 cm (5' 3.39 ) 37 %ile (Z= -0.32) based on CDC (Girls, 2-20 Years) [id number] data based on Stature recorded on 09/09/2022. Weight: 57.6 kg (127 lb) 57 %ile (Z= 0.17) based on CDC (Girls, 2-20 Years) [id number] data using vitals from 09/09/2022. BMI: 22.22 62 %ile (Z= 0.30) based on CDC (Girls, 2-20 Years) BMI-for-age based on BMI available asof 09/09/2022. BP: 122/72 Blood pressure reading is in the elevated blood pressure range (BP >= 120/80) based on the 2017 AAP Clinical Practice Guideline. Physical Exam Constitutional: Alert and active Ears: Normal tympanic membranes Eyes: Conjunctivae normal Nose: Congested Throat: Oropharynx clear Neck: Normal range of motion Pulmonary: Scattered exp. Wheezes, no distress No respiratory distress Abdominal: Soft Neurological: Mental status: - Level of Consciousness: alert Labs Hospital Encounter on 09/09/22 SARS-COV-2 INFLUENZA ANTIGEN - POCT INTER Result Value Ref Range SARS-CoV-2 Ag Negative Negative Influenza A Antigen Negative Negative Influenza B Antigen Positive (Abnormal) Negative Assessment and Plan Influenza B Give albuterol prn, if increase distress call-mother aware that the flu can exacerbate the flu Orders Placed This Encounter ??? albuterol (Proventil;Ventolin) (2.5 MG/3ML) 0.083% nebulizer solution 2.5 mg Return if symptoms worsen or fail to improve. Jori Santiago MD OR C SOFTWARE DEVELOPER documented in this encounter Plan of Treatment Not on file documented as of this encounter Goals Goal Patient Goal Type Associated Problems Recent Progress Patient-Stated? Author Yearly PCP visit Lifestyle No Aster Garnica, RN Note: Come into office for yearly wcc. Take recommended medication(s) Lifestyle No Aster Garnica, ALEXA documented as of this encounter Procedures Procedure Name Priority Date/Time Associated Diagnosis Comments SARS-COV-2 INFLUENZA ANTIGEN - POCT INTER Routine 09/09/2022 11:37 AM SENIOR C SOFTWARE DEVELOPER Influenza B documented in this encounter Results * (ABNORMAL) SARS-COV-2 INFLUENZA ANTIGEN - POCT INTER (09/09/2022 11:37 AM SENIOR C SOFTWARE DEVELOPER) SARS-CoV-2 Ag Negative Negative 09/09/2022 11:45 AM SENIOR C SOFTWARE DEVELOPER [facility] Influenza A Antigen Negative Negative 09/09/2022 11:45 AM SENIOR C SOFTWARE DEVELOPER [facility] Influenza B Antigen Positive(A) Negative 09/09/2022 11:45 AM SENIOR C SOFTWARE DEVELOPER [facility] Microbiology SPECIMEN FROM NASAL FOSSAE / Unknown 09/09/2022 11:37 AM SENIOR C SOFTWARE DEVELOPER 09/09/2022 11:45 AM SENIOR C SOFTWARE DEVELOPER Narrative [facility] - 09/09/2022 11:45 AM SENIOR C SOFTWARE DEVELOPER SARS-CoV-2 antigen testing is authorized for use [...] MD LAB - POINT OF CARE ORDERABLES Performing Organization Address City/State/[facility] Co de Phone Number [facility] [place] [id number] [address] [phone] documented in this encounter Visit Diagnoses Diagnosis Influenza B- Primary Influenza with other respiratory manifestations * Assessment & Plan Note - Jori Santiago MD - 09/09/2022 11:55 AM SENIOR C SOFTWARE DEVELOPER Associated Problem(s): Influenza B Give albuterol prn, if increase distress call-mother aware that the flu can exacerbate the flu OR C SOFTWARE DEVELOPER documented in this encounter Care Teams Metal Control Coordinator Relationship Specialty Start Date End Date Va Olivo MD PCP - General Pediatrics 12/08/17 documented as of this encounter
--- OUTSIDE RECORDS SUMMARY | 2024-07-18 03:59 | XMS_ITS | Encounter Summary ---
Author Organization [facility] Address [address] [place] [address] Care Team Providers Care Paperboard Box Maker Name Role Phone Va Olivo MD Primary Care Provider [phone] Reason for Visit * Reason Comments SUICIDAL * Auth/Cert Specialty Diagnoses / Procedures Referred By Julia lemus Referred To Contact Referral ID Status Reason Start Date Expiration Date Visits Re quested Visits Authorized [id number] 1 1 Encounter Details Date Type Department Care Team (Late st Contact Info) Description 09/23/2018 12:16 PM CDT - 09/23/2018 3:21 PM CDT Emergency ER at [address] [address] Vanessa Thompson MD [address] [place] [address] [place] [id number] Current episode of major depressive disorder without prior episode, unspecified depression episode severity (Primary Dx) Discharge Disposition: Home or Self Care Social History Tobacco Use Types Packs/Day Years Used Date Smoking Tobacco: Never Assessed Sex and Gender Information Value Date Recorded Sex Assigned at Not on file Gender Identity Not on file Sexual Orientation Not on file documented as of this encounter Last Filed Vital Signs Vital Sign Reading Time Taken Comments Blood Pressure 108/72 09/23/2018 3:00 PM CDT Pulse 78 09/23/2018 3:00 PM CDT Temperature 36.9 ??C (98.5 ??F) 09/23/2018 12:09 PM C DT Respiratory Rate 16 09/23/2018 3:00 PM CDT Oxygen Saturation 99% 09/23/2018 3:00 PM CDT Inhaled Oxygen Concentration - - Weight 48.3 kg (106 lb 8 oz) 09/23/2018 12:09 PM CDT Height 154.9 cm (5' 1 ) 09/23/2018 12:09 PM CDT Body Mass Index 20.12 09/23/2018 12:09 PM CDT Body Mass Index Percentile 60.93% 09/23/2018 12: 09 PM CDT Growth Chart: [facility] (Girls, 2- 20 Years) documented in this encounter Discharge Instructions * Discharge Instructions* Vanessa Thompson MD - 09/23/2018 2:57 PM CDT Home with the father.. Routine director of early childhood education.Referred to [facility] as an outpatient. F/U with the PCP as needed. Return as needed. Depression in Children WHAT YOU NEED TO KNOW: What is depression? Depression is a medical condition that causes your child to feel sad or hopeless. These feelings do not go away. Depression may cause your child to lose interest in things he or she used to enjoy. These feelings may interfere with his or her daily life. He or she may also be angry, do poorly in school, become isolated, or have pain. What causes or increases my child's risk for depression? Depression may be caused by changes in thebrain chemicals that affect your child's mood. Your child's risk for depression may be higher if heor she has any of the following: ?? Stressful events such as the of a loved one, abuse, parental divorce, or loss of a friendship ?? A family history of depression ?? An anxiety disorder, ADHD, or a learning disability ?? Low self-esteem or poor relationships with others ?? A chronic medical condition, such as cancer, asthma, or migraine headaches What are the signs and symptoms of depression? ?? Appetite changes, or weight gain or loss ?? Trouble going to sleep or staying asleep, or sleeping too much ?? Fatigue or lack of energy ?? Feeling restless, irritable, or withdrawn ?? Feeling worthless, hopeless, discouraged, or guilty ?? Trouble concentrating, remembering things, doing daily tasks, or making decisions ?? Self-harm or talking about suicide How is depression diagnosed? Your child's healthcare provider will ask about your child's symptoms and how long he or she has had them. He or she will also ask if there are any family members with depression. Tell your child's healthcare provider about your child's health and any medicines he or she takes. He or she may ask how your child is doing in school. Tell him or her about your child's relationships with teachers and friends, and about any stressful events in his or her life. How is depression treated? Your child's healthcare provider will help you and your child develop a plan for his or her treatment. The provider will ask your child to make plans for coping at home, school, and around friends. The plan may include an emergency contact in case he or she feels like hurting himself or herself, or others. It may also include regular exercise, good nutrition, and any ofthe following: ?? Therapy may be used to treat your child's depression. Therapy can also help your child work through situations that may be causing the depression or making it worse. This may be done alone or in agroup. It may also be done with family members. ?? Antidepressant medicine may be given, depending on your child's age. Your child may need to takethis medicine for several weeks before he or she begins to feel better. Tell his or her healthcare provider about any problems your child has with his or her medicine. The kind or amount of medicine may have to be changed. Some medicines used to treat depression may increase the risk for suicide. What can I do to help and support my child? ?? Listen to your child when he or she wants to talk. Your child's depression may be related to something stressful in his or her life. Examples include loss of an important family member, or divorceof his or her parents. Your child may be bullied at school or have trouble making friends. Do not dismiss your child's problem or feelings. You may not think the situation is serious, but it is to your child. ?? Watch your child carefully for any behavior changes. Talk to your child's healthcare provider ifyou have concerns or questions about your child's behavior. Children with depression have an increased risk for suicide. ?? Encourage healthy eating habits. Offer your child a variety of healthy foods. Healthy foods include fruits, vegetables, whole-grain breads, lean meats, fish, low-fat dairy products, and cooked beans. Limit the amount of sugar and caffeine your child has. ?? Help your child create a sleep schedule. Have your child go to sleep and wake up at the same times every day. Stick to a sleep schedule so he or she gets enough sleep. Your child may sleep better if his or her room is quiet and dark. ?? Help your child get 1 hour of physical activity every day. Encourage your child to play sports or be active every day. Physical activity can reduce symptoms of depression. Try offering to take your child somewhere he or she enjoys. This may help him or her be more willing to be active. The following resources are available at any time, if needed: ?? National Suicide Prevention Lifeline: (6-912-835-TALK) ?? Suicide Hotline: (8-550-IBMQBSI) ?? For a list of international numbers: https://save.org/find-help/international-resources/ Call your local emergency number (911 in the ) if: ?? Your child has done something on purpose to hurt himself or herself. ?? Your child tries to commit suicide. ?? Your child says he or she wants to commit suicide. When should I call my child's therapist or cat scan tech? ?? Your child's depression gets worse. ?? You do not think your child's depression medicine is helping. ?? You have questions or concerns about your child's condition or care. CARE AGREEMENT: You have the right to help plan your child's care. Learn about your child's health condition and how it may be treated. Discuss treatment options with your child's healthcare providers to decide whatcare you want for your child. The above information is an institutional aide only. It is not intended as medical advice for individual conditions or treatments. Talk to your doctor, nurse or pharmacist before following any medical regimen to see if it is safe and effective for you. ?? Copyright [employer] 2018 Information is for End User's use only and may not be sold, redistributed or otherwise used for commercial purposes. All illustrations and images included in CareNotes?? are the copyrighted property of [employer], [employer]. or [employer] documented in this encounter Medications at Time of Discharge Medication Sig Dispensed Refills Start Date End Date albuterol HFA (PROAIR HFA) 108 (90 BASE) MCG/ACT inhaler INHALE 2 PUFFS BY MOUTH EVERY 4 HOURS NEEDED FOR WHEEZING OR COUGH; USE WITH SPACER 17 g 3 12/08/2017 02/17/2019 Cholecalciferol 1000 UNITS Take 1,000 Each by mouth once daily 30 Tab 3 03/02/2017 02/17/2019 naproxen (NAPROSYN) 375 MG tabletIndications:Queen splints, initial encounter Take 1 tablet by mouth 2 times daily as needed for Pain 30 tablet 2 12/08/2017 02/17/2019 Spacer/Aero-Holding Chambers (AEROCHAMBER PLUS BHARTI-VU W/MASK) USE DIRECTED 2 Each 02/18/2017 11/05/2020 documented as of this encounter Progress Notes * Arthur Smith APRN-INVESTMENT SPECIALIST - 09/23/2018 2:08 PM CDT PSYCHIATRIC HISTORY & PHYSICAL Name: Jarad Kevin Admit Date: 09/23/2018 : 2005 Evaluation Date: 09/23/2018 [facility] #: [id number] Room #: 24 Attending Physician: No admitting provider for patient encounter. Identifying Data: This is a 12 year old old black female presented for evaluation of mood and behavior. Chief Complaint(s): I am stressed at school History of Present Illness: Patient presents to [facility] er with SI. Patient states that she has had some depression since her brother in 2017. Patient also states that school has been a stressor for her with the way people act. Patient states that she has a history of SIB of cutting on her left wrist with last episode 2 weeks ago. Patient is denying any SI, HI, auditory or visual hallucinations. Patient has been sleeping well and denies any fatigue. Patient also reports any appetite disturbances. Patient has no history of drug or alcohol use. Patient has no history of psychiatric admissions or treatment. Patient lives with her mother stepfather, brother and sister and denies any stressors at home. Patient adamantly denies any plan or intent to harm herself or anyone else. Father at bedside states that he feels safe taking patient home and would like resources for outpatient followup. Plan to discharge patient to home with resources for [facility]. Clinical Diagnosis: 1. Unspecified depressive disorder, moderate Based on the Moore Suicide Scale, Jarad Kevin's suicide risk level is low Plan: 1) Follow up with outpatient mental health provider. Provided with community mental health resources. 2) Discussed use of coping skills. 3) Reconcile medications (See above). Provided with prescriptions for Prozac, Ativan PRN for anxiety, and Trazodone PRN for insomnia. 4) The risks and benefits of treatment including potential alternative treatment strategies were discussed and the patient consents to this treatment plan. Mental Status Exam: General Appearance: Good eye contact Behaviors: Pleasant and Cooperative Mood: anxious Affect: Full range Speech: Coherent Motor Activity: WNL Flow of Thought: Logical Thought Content: Delusions: absent Hallucinations: absent Suicidality: Not present Homicidality: Not present Preoccupations: not present Obsessions: not present Sensorium/Memory: Alert and Oriented x 3 Insight/Judgement: Poor insight and Poor judgement Psychiatric Review of Systems: Depressive symptoms?: depressed mood Does Jarad Kevin endorse manic symptoms?: no Does Jarad Kevin endorse psychotic symptoms?: no Does Jarad Kevin endorse anxiety symptoms?: no Does Jarad Kevin endorse being exposed to a traumatic event?: no Does Jarad Kevin endorse symptoms of OCD, Pain or Eating disorder?: no Review of Systems: Psychatric ROS as noted above Medical History: No Known Allergies Patient Active Problem List Diagnosis Date Noted ??? History of asthma 12/21/2014 Priority: Not Prioritized ??? History of syncope 12/21/2014 Priority: Not Prioritized ??? Failure to attend appointment 09/16/2013 Letter #1 ??? GERD (gastroesophageal reflux disease) 01/06/2005 ??? albuterol HFA (PROAIR HFA) 108 (90 BASE) MCG/ACT inhaler ??? Cholecalciferol 1000 UNITS ??? naproxen (NAPROSYN) 375 MG tablet ??? Spacer/Aero-Holding Chambers (AEROCHAMBER PLUS BHARTI-VU W/MASK) No past surgical history on file. No past medical history on file. Psychiatric History: Inpatient treatment: denies Outpatient Treatment: denies Past Psychiatric medications: denies No current facility-administered medications on file prior to encounter. Current Outpatient Prescriptions on File Prior to Encounter Medication Sig Dispense Refill ??? albuterol HFA (PROAIR HFA) 108 (90 BASE) MCG/ACT inhaler INHALE 2 PUFFS BY MOUTH EVERY 4 HOURS NEEDED FOR WHEEZING OR COUGH; USE WITH SPACER 17 g 3 ??? Cholecalciferol 1000 UNITS Take 1,000 Each by mouth once daily 30 Tab 3 ??? naproxen (NAPROSYN) 375 MG tablet Take 1 tablet by mouth 2 times daily as needed for Pain 30 tablet 2 ??? Spacer/Aero-Holding Chambers (AEROCHAMBER PLUS BHARTI-VU W/MASK) USE DIRECTED 2 Each 0 Current Medications: No current facility-administered medications for this encounter. No current facility-administered medications for this encounter. No current facility-administered medications for this encounter. Recent Labs: Recent Labs Component Name 12/21/14 1037 SODIUM 140 POTASSIUM 3.9 CHLORIDE 106 CO2 28 BUN 12 CREATININE 0.34* GLUCOSE 71* CALCIUM 9.1 Recent Labs Component Name 12/21/14 1037 01/24/09 1150 WBC 3.6* - HGB 12.4 11.9 HCT 37.3 35.4 PLTCOUNT 307 - No results for input(s): FRHNSLTTF0CI, BDXDRP9JB, COCAINE, ETHANOL in the last 81723 hours. Invalid input(s): OLCTXAIG7GS, JIDLTOMI8ZJ, HFQ3NQZM15, HYIZYZPZZN1DZ, MZRTBOMRV2RC No results for input(s): HCGQUAL, HCGURINE in the last 45041 hours. Recent Labs Component Name 12/21/14 1037 TSH 2.14 No results for input(s): RPR in the last 07786 hours. No results for input(s): COLORUA, CLARITYUA, SPECGRAVUA, PHUA, PROTEINUA, BLOODUA, LEUKOCYTEUA, NITRITEUA, GLUCOSEUA, KETONEUA, BILIRUBINUA, UROBILINUA, REDSUBUA, WBCUAAUTO, RBCUAAUTO, EPITHUAAUTO, BACTUAAUTO, YEASTUAAUTO, SPERMUAAUTO, CASTUAAUTO, CRYSUAAUTO, MUCUSUAAUTO in the last 99901 hours. No results for input(s): VPA in the last 78897 hours. No results for input(s): LITHIUM in the last 99089 hours. No results for input(s): CARBAMAZEPIN in the last 50581 hours. Drug / ETOH / Tobacco Use: has no alcohol history on file. has no drug history on file. Past Substance Abuse Treatment: Legal History: School / Educational History: Family Psychiatric History: No family history on file. Social History: Social History Social History ??? Marital status: Single Spouse name: N/A ??? Number of children: N/A ??? Years of education: N/A Social History Main Topics ??? Smoking status: Not on file ??? Smokeless tobacco: Not on file ??? Alcohol use Not on file ??? Drug use: Not on file ??? Sexual activity: Not on file Other Topics Concern ??? Not on file Social History Narrative Physical Exam: Patient Vitals in the past 24 hrs: 09/23/18 1209, Temp:98.5 ??F (36.9 ??C), Pulse:84, Resp:20, BP:110/79 Wt 106 lb 8 oz Height: 5' 1 SHANICE Juarez 09/23/2018 2:08 PM * Marjorie Mantilla LPC - 09/23/2018 12:52 PM CDT Central Intake received a ED CONSULT CENTRAL INTAKE Order and added patient to the Behavioral Health List (BHS List) for an assessment. documented in this encounter ED Notes * Jazmín Cid RN - 09/23/2018 3:21 PM CDT Patient and parents educated on discharge instructions, follow up information. A&Ox4 with a steady gait to waiting room. * Vanessa Thompson MD - 09/23/2018 2:16 PM CDT Provider contact with the patient: 09/23/2018 14:16 [facility] [id number] [facility] EMERGENCY DEPART[facility] History Chief Complaint Patient presents with ??? SUICIDAL HPI Comments: This 12 year old female was brought by her father for evaluation of suicidal thoughts. Patient started seeing a counselor at school since she lost her brother. Now she is having difficulty at school with her grades and feeling very depressed. Has had several attempts to cut her forearm with the scissors. Attained Menarche 3 months ago . LMP a couple of weeks. Denies being sexually active. Non-smoker Do not use drugs. Past Hx of reactive airway disease. Not on any medications. , General Severity: Moderate No past medical history on file. No past surgical history on file. No family history on file. Social History Social History ??? Marital status: Single Spouse name: N/A ??? Number of children: N/A ??? Years of education: N/A Occupational History ??? Not on file. Social History Main Topics ??? Smoking status: Not on file ??? Smokeless tobacco: Not on file ??? Alcohol use Not on file ??? Drug use: Not on file ??? Sexual activity: Not on file Other Topics Concern ??? Not on file Social History Narrative Review of Systems Review of Systems Constitutional: Negative. HENT: Negative. Eyes: Negative. Respiratory: Negative. Cardiovascular: Negative. Gastrointestinal: Negative. Genitourinary: Negative. Musculoskeletal: Negative. Skin: Negative. Neurological: Negative. Endo/Heme/Allergies: Negative. Psychiatric/Behavioral: Negative. All other systems reviewed and are negative. Physical Exam BP 108/72 Pulse 78 Temp 98.5 ??F (36.9 ??C) Resp 16 Ht 1.549 m (5' 1 ) Wt 48.3 kg (106 lb8 oz) SpO2 99% BMI 20.12 kg/m2 Physical Exam Constitutional: She is oriented to person, place, and time. She appears well- developed and well-nourished. HENT: Head: Normocephalic. Right Ear: External ear normal. Left Ear: External ear normal. Nose: Nose normal. Mouth/Throat: Oropharynx is clear and moist. No oropharyngeal exudate. Eyes: Pupils are equal, round, and reactive to light. Conjunctivae and EOM are normal. Neck: Normal range of motion. Neck supple. Cardiovascular: Normal rate, regular rhythm, normal heart sounds and intact distal pulses. Pulmonary/Chest: Effort normal and breath sounds normal. She exhibits no tenderness. Abdominal: Soft. Bowel sounds are normal. Musculoskeletal: Normal range of motion. Lymphadenopathy: She has no cervical adenopathy. Neurological: She is alert and oriented to person, place, and time. She has normal reflexes. Skin: Skin is warm and dry. Rash noted. Linear healed abrasions on the left ventral aspect of the forearm. Psychiatric: Her behavior is normal. Thought content normal. depressed Nursing note and vitals reviewed. Medications Current Outpatient Prescriptions Medication Sig Dispense Refill ??? albuterol HFA (PROAIR HFA) 108 (90 BASE) MCG/ACT inhaler INHALE 2 PUFFS BY MOUTH EVERY 4 HOURS NEEDED FOR WHEEZING OR COUGH; USE WITH SPACER 17 g 3 ??? Cholecalciferol 1000 UNITS Take 1,000 Each by mouth once daily 30 Tab 3 ??? naproxen (NAPROSYN) 375 MG tablet Take 1 tablet by mouth 2 times daily as needed for Pain 30 tablet 2 ??? Spacer/Aero-Holding Chambers (AEROCHAMBER PLUS BHARTI-VU W/MASK) USE DIRECTED 2 Each 0 Procedures Procedures ECG Interpretation ECG Interpretation Lab Interpretation Oxygen Saturation Interpretation The oxygen saturation level is: 99%. The patient was on Room Air for the saturation measurement. Measurement frequency: Spot Check. Oxygen saturation interpretation is Normal. Intervention(s) used: None. No results found for this visit on 09/23/18. No orders to display Progress Notes Evaluated by CI coordinator and recommended IOP as an outpatient. ED Course ED Course Medical Decision Making I have reviewed the: Nursing Notes, Vitals. I have discussed the case with Family/Caregiver. Orders Placed This Encounter ??? IP CONSULT TO CENTRAL INTAKE Clinical Impression Final diagnoses: Current episode of major depressive disorder without prior episode, unspecified depression episode severity (Primary) Total time spent was 40 minutes. Patient was discharged home with the father. Follow-up Information Follow-up With Details Why Contact Info Va Olivo MD Call in 2 days As needed [id number] [place] [id number] User Date/Time Vanessa Thompson MD [facility] Sep 23, 2018 2:49 PM * Jazmín Cid V. RN - 09/23/2018 1:[address] Yancey at bedside for medical exam. * Jazmín Cid RN - 09/23/2018 12:52 PM CDT Pt from waiting room to 24 accompanied by her father Pt had suiciadal thoughts and went to school counselor. Pt admits to suicidal thoughts but denies a plan or acting on thoughts. Pt calm and cooperative. A&OX4. Skin-warm/dry. Color- normal. Cap refill <2 sec. Respirations-even and non labored. * Jenn Verdugo CNA - 09/23/2018 12:16 PM CDT Bed: 24 Expected date: 09/23/18 Expected time: 12:08 PM Means of arrival: Comments: Hold for Union documented in this encounter Plan of Treatment Not on file documented as of this encounter Visit Diagnoses Diagnosis Current episode of major depressive disorder without prior episode, unspecified depression episode severity- Primary documented in this encounter Care Teams Paperboard Box Maker Relationship Specialty Start Date End Date Va Olivo MD PCP - General Pediatrics 12/08/17 documented as of this encounter
--- OUTSIDE RECORDS SUMMARY | 2024-07-18 03:59 | XMS_ITS | Encounter Summary ---
Author Organization [facility] Address [address] [place] [address] Care Team Providers Care Freight Inspector Name Role Phone Va Olivo MD Primary Care Provider Reason for Visit * Reason Onset Date Comments Question 04/29/2022 Encounter Details Date Type Department Care Team ([facility] st Contact Info) Description 04/29/2022 Telephone [facility] Pediatrics [id number] [place] [address] Va Olivo MD [address] [facility] [phone] [place] [address] Question Social History Tobacco Use Types Packs/Day [...] Coronavirus/COVID-19? 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 Asthma action plan written, under letters tab, you can print it and getit to mom * Telephone Encounter - Shadia Shafer RN - 04/29/2022 2:04 PM CDT Mom called inquiring about a second inhaler and a asthma action plan. She says she use to have two inhalers for the patient but wasn't sure why she only has one now. I also gave her the number to Neurology at [facility] because she inquired about a seizure action plan ([facility] told her to fu with neuro). Please advise. documented in this encounter Plan of Treatment [...] on filedocumented in this encounter Care Teams Freight Inspector Relationship Specialty Start Date End Date Va Olivo MD PCP - General Pediatrics 12/08/17 documented as of this encounter
--- OUTSIDE RECORDS SUMMARY | 2024-07-18 03:59 | XMS_ITS | Encounter Summary ---
Author Organization [facility] Address [address] [place] [address] Care Team Providers Care Polo Coach Name Role Phone Va Olivo MD Primary Care Provider [phone] Reason for Visit * Reason Comments Well Child Check Encounter Details Date Type Department Care Team (Latest Contact Info) Description 11/05/2020 2:52 PM CDT - 11/05/2020 3:54 PM CDT Hospital Encounter [facility] [id number] , [address] [place] [address] Va Olivo MD [address] [place] [address] [phone] [place] [address] Discharge Disposition: Home or Self Care Social History Tobacco Use Types Packs/Day Years Used Date Smoking Tobacco: Never Assessed Sex and Gender Information Value Date Recorded Sex Assigned at Not on file Gender Identity Not on file Sexual Orientation Not on file documented as of this encounter Last Filed Vital Signs Vital Sign Reading Time Taken Comments Blood Pressure 142/79 11/05/2020 3:02 PM CDT Pulse 105 11/05/2020 3:02 PM CDT Temperature 36.4 ??C (97.5 ??F) 11/05/2020 3:02 PM CD T Respiratory Rate - - Oxygen Saturation - - Inhaled Oxygen Concentration - - Weight 53.5 kg (118 lb) 11/05/2020 3:02 PM CDT Height 158.8 cm (5' 2.5 ) 11/05/2020 3:02 PM CDT Body Mass Index 21.24 11/05/2020 3:02 PM CDT Body Mass Index Percentile 59.83% 11/05/2020 3:0 2 PM CDT Growth Chart: CDC (Girls, 2- 20 Years) documented in this encounter Discharge Instructions * Patient Instructions* Va Olivo MD - 11/05/2020 3:05 PM CDT Images from the original note were not included. Decrease salt , sodium and processed foods in diet Walk 20-30 minutes a day as a minimum amount of exercise YOUR GROWING CHILD: FIFTEEN to EIGHTEEN YEARS Child???s Name: Your Policy Manager Today???s Date: 11/05/2020 Wt Readings from Last 2 Encounters: 11/05/20 53.5 kg (118 lb) (48 %, Z= -0.04)* 02/17/19 48.7 kg (107 lb 6 oz) (43 %, Z= -0.17)* * Growth percentiles are based on CDC (Girls, 2-20 Years) data. Ht Readings from Last 2 Encounters: 11/05/20 1.588 m (5' 2.5 ) (28 %, Z= -0.59)* 02/17/19 1.581 m (5' 2.25 ) (33 %, Z= -0.43)* * Growth percentiles are based on CDC (Girls, 2-20 Years) data. Immunization History Administered Date(s) Administered ??? DTAP/HEP B/IPV 01/06/2005, 04/08/2005, 07/04/2005 ??? DTAP/IPV 01/24/2009 ??? DTaP 11/05/2006 ??? FLU VACCINE TRI IIV3 SPLIT PF IM (FLUVIRIN) 05/07/2011 ??? HEP A PEDS 2 DOSE 11/11/2005, 11/05/2006 ??? HIB BOOSTER 01/06/2005, 04/08/2005, 11/11/2005 ??? Human Papilloma Virus Ninevalent Vaccine 02/01/2016, 02/17/2017 ??? MENINGOCOCCAL CONJUGATE (MCV4) 02/01/2016 ??? MMR 11/11/2005, 01/24/2009 ??? PNEUMOCOCCAL PCV7 CONJ, PEDS 01/06/2005, 04/08/2005, 07/04/2005, 11/11/2005 ??? TDAP 02/01/2016 ??? VARICELLA 11/11/2005, 01/24/2009 If you need to reach a laborer filter plant after normal business hours, please call our [...] sex. If your child is sexually active, discussthe importance of practicing safe sex and the [...] share in (or continuing to share in) treating machine operator. Also increase awareness about community issues and [...] Most importantly, be a good role model! documented in this encounter Medications at Time of Discharge Medication Sig Dispensed Refills Start Date End Date albuterol HFA (PROAIR HFA) 108 (90 Base) MCG/ACT inhalerIndications:Mild intermittent asthma without complication (HCC) INHALE 2 PUFFS BY MOUTH EVERY 4 HOURS NEEDED FOR WHEEZING OR COUGH; USE WITH SPACER 2 Inhaler 3 11/05/2020 04/14/2022 documented as of this encounter Progress Notes * Va Olivo MD - 11/05/2020 3:04 PM CDT Images from the original note were not included. 15 year old [facility] Interval History: Greyson Kevin is a 15 year old female who is accompanied to today's visit by mom for a 15 year old checkup Parental/Patient Concerns: None Recent visits to Hospital / ER/ Urgent Care: No Current Medications: infreq use of albuterol Allergies: To Medications: NONE/ SEE BELOW No Known Allergies PAST MEDICAL HISTORY / ONGOING MEDICAL PROBLEMS Patient Active Problem List: History of syncope Mild intermittent asthma without complication TB Exposure Risk: living with someone who has been: -living on the street, homeless or detention -recently released from a mcc, senior care, or assisted -known to have tuberculosis, AIDS or is immunocompromised -comes from or has visited an area known to have tuberculosis -abuses drugs or is an IV drug user -is a migrant potato chip fryer -or has had a positive PPD or TB test -No- Family History: Reviewed, hx of DM and HTN Social History: Lives with mom, ronnie and sibs , Father is involved Smokers Inside OR Outside House: No If YES, then I discussed cessation, benefits to wallet AND health, setting example for children. SCHOOL: Grade: 10 Grades: above average Screen for Depression: PHQ - 9 administered and reviewed - score 2., will be scanned into chart HIGH RISK BEHAVIORS: - Cigarettes: no - Alcohol: no - Drugs: no - Friends smoking / Drinking / Drugs: no - -Sexual activity: never - Sexually active friends: no Discussed abstinence and safe sex Menstrual History: Female Yes If yes, then Menarche age 12 years LMP: 2 wks ago (0=now) Every 30 (about) Days Lasting 5 Days LIVING WITH TEEN: Sleepin-9 hours - through the night - own bedroom - good bedtime routine - TV/Phone/computer in bedroom -Yes discussed issue associated with sleep problems Nutrition: - milk (16-24 oz per day) Discussed Calcium substitutes - fruits - meat - veggies - limit juice and soda Output: Stool: Soft stools regularly- Yes Dental: - brush teeth twice per day, use floss daily - fluoride containing tooth paste - has a regular dentist Hearing and Vision: Hearing: Parental perception of hearing is normal, Examined with otoscope- yes Passed Hearing screening today- Yes Vision: Parental/child perception of vision is normal Normal pupillary response /red reflex / tracking / ocular movement Passed vision screening today- No , just got new glasses, exam declined Developmental Milestones: Social / Communication: MINIMAL - Follows rules at school - Follows rules at home - Best Friend I don't have one* Fine / Gross Motor: Level of activity- Normal- Likes dance PHYSICAL EXAM: done appropriately unclothed Vitals: Patient Vitals for the past 24 hrs: BP Temp Temp src Pulse Height Weight 11/05/20 1502 (Abnormal) 142/79 97.5 ??F (36.4 ??C) Temporal (Abnormal) 105 1.588 m (5' 2.5 ) 53.5 kg (118 lb) Height: 28 %ile (Z= -0.59) based on [facility] (Girls, 2-20 Years) [id number] data based on Stature recorded on 11/05/2020. Weight: 48 %ile (Z= -0.04) based on CDC (Girls, 2-20 Years) [id number] data using vitals from 11/05/2020. BMI: 60 %ile (Z= 0.25) based on CDC (Girls, 2-20 Years) BMI-for-age based on BMI available as of 11/05/2020. General Appearance: Well developed in no acute distress Skin: No rash or abnormal bruising Head/Neck: Normocephalic Eyes: Sclera white and clear [...] Genitalia Female Genitalia Normal external female genitalia Breast-Lucio- IV Pubic Hair- Lucio- IV Trunk and Spine: Grossly intact Straight NO Scoliois Extremities: Moving all extremitites well Normal gait and strength Reflexes: Normal tone Good and equal patellar reflexes RESULTS: No results found for this or any previous visit (from the past 72 hour(s)). ASSESSMENT / EDUCATION / PLAN: ICD-10-CM 1. Encounter for well child visit at 15 years of age Z00.129 2. Need for vaccination Z23 meningococcal vaccine with DIPHTHERIA (Menactra) injection 0.5 mL 3. Elevated blood pressure reading R03.0 COMPREHENSIVE METABOLIC PANEL HEMOGLOBIN A1C LIPID PROFILE 4. Screening for endocrine, metabolic and immunity disorder Z13.29 COMPREHENSIVE METABOLIC PANEL Z13.228 HEMOGLOBIN A1C Z13.0 LIPID PROFILE 5. Family history of diabetes mellitus Z83.3 COMPREHENSIVE METABOLIC PANEL HEMOGLOBIN A1C LIPID PROFILE 6. Mild intermittent asthma without complication J45.20 albuterol HFA (PROAIR HFA) 108 (90 Base) MCG/ACT inhaler Well check -normal exam except as noted. Growth normal. Development normal - Well Child Check- Normal 15 year old - Anticipatory Guidance Given - no smoking - pool safety / swimming - smoke detector - discussed drinking/driving/calling parents - if guns in house...safety discussed PARENTS: KNOW YOUR CHILD'S BEST FRIEND AND PARENTS - Immunizations: - vaccine refusal No MENACTRA #2 - flu vaccine (if in season) (and face to face counseling regarding diseases / vaccine risks, efficacy and benefits) - Feeding / Nutrition: - continue with milk 16-24 oz /day - wide variety OK - water for thirst - limit juice/sugary drinks ORDERS: Orders Placed This Encounter ??? COMPREHENSIVE METABOLIC PANEL Order Specific Question: Release to patient Answer: Immediate ??? HEMOGLOBIN A1C Order Specific Question: Release to patient Answer: Immediate ??? LIPID PROFILE Order Specific Question: Release to patient Answer: Immediate ??? meningococcal vaccine with DIPHTHERIA (Menactra) injection 0.5 mL ??? albuterol HFA (PROAIR HFA) 108 (90 Base) MCG/ACT inhaler Sig: INHALE 2 PUFFS BY MOUTH EVERY 4 HOURS NEEDED FOR WHEEZING OR COUGH; USE WITH SPACER Dispense: 2 Inhaler Refill: 3 Active Orders There are no active orders. FOLLOW UP 3 mos BP check up, sooner for illnesses / questions Patient Instructions Decrease salt , sodium and processed foods in diet Walk 20-30 minutes a day as a minimum amount of exercise YOUR GROWING CHILD: FIFTEEN to EIGHTEEN YEARS Child???s Name: [employer] Today???s Date: 11/05/2020 Wt Readings from Last 2 Encounters: 11/05/20 53.5 kg (118 lb) (48 %, Z= -0.04)* 02/17/19 48.7 kg (107 lb 6 oz) (43 %, Z= -0.17)* * Growth percentiles are based on CDC (Girls, 2-20 Years) data. Ht Readings from Last 2 Encounters: 11/05/20 1.588 m (5' 2.5 ) (28 %, Z= -0.59)* 02/17/19 1.581 m (5' 2.25 ) (33 %, Z= -0.43)* * Growth percentiles are based on CDC (Girls, 2-20 Years) data. Immunization History Administered Date(s) Administered ??? DTAP/HEP B/IPV 01/06/2005, 04/08/2005, 07/04/2005 ??? DTAP/IPV 01/24/2009 ??? DTaP 11/05/2006 ??? FLU VACCINE TRI IIV3 SPLIT PF IM (FLUVIRIN) 05/07/2011 ??? HEP A PEDS 2 DOSE 11/11/2005, 11/05/2006 ??? HIB BOOSTER 01/06/2005, 04/08/2005, 11/11/2005 ??? Human Papilloma Virus Ninevalent Vaccine 02/01/2016, 02/17/2017 ??? MENINGOCOCCAL CONJUGATE (MCV4) 02/01/2016 ??? MMR 11/11/2005, 01/24/2009 ??? PNEUMOCOCCAL PCV7 CONJ, PEDS 01/06/2005, 04/08/2005, 07/04/2005, 11/11/2005 ??? TDAP 02/01/2016 ??? VARICELLA 11/11/2005, 01/24/2009 If you need to reach a laborer filter plant after normal business hours, please call our [...] share in (or continuing to share in) treating machine operator. Also increase awareness about community issues and [...] Most importantly, be a good role model! documented in this encounter Miscellaneous Notes * Addendum Note - Ngozi Hernandez CPC - 11/05/2020 3:54 PM CDTEncounter addended by: Ngozi Hernandez CPC on: 12/04/2020 1:52 PM Actions taken: Charge Capture section accepted documented in this encounter Plan of Treatment Not on file documented as of this encounter Goals Goal Patient Goal Type Associated Problems Recent Progress Patient-Stated? Author Yearly PCP visit Lifestyle Aster Willard RN Note: Come into office for yearly wcc. Take recommended medication(s) Lifestyle No Aster Garnica RN documented as of this encounter Procedures Procedure Name Priority Date/Time Associated Diagnosis Comments HEMOGLOBIN A1C Routine 11/05/2020 4:01 PM CDT Elevated blood pressure reading Screening for endocrine, metabolic and immunity disorder Family history of diabetes mellitus COMPREHENSIVE METABOLIC PANEL Routine 11/05/2020 4:01 PM CDT Elevated blood pressure reading Screening for endocrine, metabolic and immunity disorder Family history of diabetes mellitus LIPID PROFILE Routine 11/05/2020 4:01 PM CDT Elevated blood pressure reading Screening for endocrine, metabolic and immunity disorder Family history of diabetes mellitus documented in this encounter Results * (ABNORMAL) LIPID PROFILE (11/05/2020 4:01 PM CDT) Cholesterol 203(H) <200 mg/dL [facility] INSURANCE BILL Triglycerides 62 <150 mg/dL [facility] INSURANCE BILL HDL Cholesterol 62 >40 mg/dL [facility] INSURANCE BILL VLDL Calculated 12 <=30 mg/dL [facility] INSURANCE BILL LDL Calculated 129 <130 mg/dL [facility] INSURANCE BILL Blood BLOOD SPECIMEN / Unknown 11/05/2020 4:01 PM CDT 11/05/2020 Narrative Resulting Agency Comment Lab Testing performed at: [facility] [address] [facility] [phone] Va Olivo MD LAB - CHEMISTRY SALIMA MOORE [facility] INSURANCE BILL [address] [place] [address] * HEMOGLOBIN A1C (11/05/2020 4:01 PM CDT) Hemoglobin A1c 5.2 4.2 - 5.6 % [facility] INSURANCE BILL Comment: AVERAGE GLUCOSE MG/DL BLOOD ??103 ?mg/dL The following cutoff levels are recommended by [place] [employer]. A1c ??> 6.5% : [...] Resulting Agency Comment Lab Testing performed at: [facility] [id number] [address] ?? Bubba RHODES [phone] Va Olivo MD LAB - CHEMISTRY SALIMA MOORE [facility] Organization Address City/State/ZIP Co de Phone Number [facility] INSURANCE BILL [address] [place] [address] * (ABNORMAL) COMPREHENSIVE METABOLIC PANEL (11/05/2020 4:01 PM CDT) Glucose 135(H) 70 - 105 mg/dL [facility] INSURANCE BILL BUN 10 7 - 18.7 mg/dL [facility] INSURANCE BILL Creatinine 0.84 0.57 - 1.11 mg/dL [facility] INSURANCE BILL Sodium 139 136 - 145 mmol/L [facility] INSURANCE BILL Potassium 4.0 3.5 - 5.1 mmol/L [facility] INSURANCE BILL Chloride 106 98 - 107 mmol/L [facility] INSURANCE BILL CO2 23 20 - 28 mmol/L [facility] INSURANCE BILL Calcium 9.1 8.4 - 10.4 mg/dL [facility] INSURANCE BILL Protein Total 7.2 6.4 - 8.3 gm/dL [facility] INSURANCE BILL Albumin 4.4 3.4 - 5.0 gm/dL [facility] INSURANCE BILL Bilirubin Total 0.3 0.2 - 1.2 mg/dL [facility] INSURANCE BILL Comment:Attention clinician: Reference Range change. Alkaline Phosphatase 116 100 - 390 U/L [facility] INSURANCE BILL Comment:Attention clinician: Reference Range change. AST 14 5 - 34 U/L [facility] INSURANCE BILL ALT <6 0 - 61 U/L [facility] INSURANCE BILL Blood BLOOD SPECIMEN / Unknown 11/05/2020 4:01 PM CDT 11/05/2020 Narrative Resulting Agency Comment Lab Testing performed at: [facility] [id number] [address] ?? [facility] [id number] Va Olivo MD LAB - CHEMISTRY SALIMA MOORE [facility] INSURANCE BILL [address] [place] [address] documented in this encounter Visit Diagnoses Diagnosis Encounter for well child visit at 15 years of age- Primary Need for vaccination Need for prophylactic vaccination and inoculation against unspecified single disease Elevated blood pressure reading Elevated blood pressure reading without diagnosis of hypertension Screening for endocrine, metabolic and immunity disorder Family history of diabetes mellitus Mild intermittent asthma without complication (HCC) Unspecified asthma documented in this encounter Care Teams Polo Coach Relationship Specialty Start Date End Date Va Olivo MD PCP - General Pediatrics 12/08/17 documented as of this encounter
--- OUTSIDE RECORDS SUMMARY | 2024-07-18 03:59 | XMS_ITS | Encounter Summary ---
Author Organization [facility] Address [address] [place] [address] Care Team Providers Care Cloth Shearer Name Role Phone [facility] Primary Care Prov ider Reason for Visit * Reason Comments Refill Request Encounter Details Date Type Department Care Team (Late st Contact Info) Description 02/18/2017 Refill [facility] [address], [address] [place] [address] [place] [address] [facility] [address] [place] [address] Refill Request Social History Tobacco Use Types Packs/Day Years Used Date Smoking Tobacco: Never Assessed Sex and Gender Information Value Date Recorded Sex Assigned at Not on file Gender Identity Not on file Sexual Orientation Not on file documented as of this encounter Plan of Treatment Not on file documented as of this encounter Visit Diagnoses Not on filedocumented in this encounter Care Teams Cloth Shearer Relationship Specialty Start Date End Date [facility] [id number] [address] PCP - General 02/06/10 12/07/17 documented as of this encounter
--- OUTSIDE RECORDS SUMMARY | 2024-07-18 03:59 | XMS_ITS | Encounter Summary ---
Author Organization [facility] Address [address] [place] [address] Care Team Providers Care Capacitor Pack Press Operator Name Role Phone Va Olivo MD Primary Care Provider [phone] Reason for Visit * Reason Comments Well Child Check Question about control Encounter Details Date Type Department Care Team (Latest Contact Info) Description 11/29/2021 10:00 AM CDT - 11/29/2021 10:52 AM T Hospital Encounter [facility] [address] , [address] [place] [address] Va Olivo MD [address] [place] [address] [phone] [place] [address] Discharge Disposition: Home or Self Care Social History Tobacco Use Types Packs/Day Years Used Date Smoking Tobacco: Never Assessed Sex and Gender Information Value Date Recorded Sex Assigned at Not on file Gender Identity Not on file Sexual Orientation Not on file documented as of this encounter Last Filed Vital Signs Vital Sign Reading Time Taken Comments Blood Pressure 124/79 11/29/2021 10:13 AM CDT Pulse 77 11/29/2021 10:13 AM CDT Temperature 36.1 ??C (97 ??F) 11/29/2021 10:13 AM CDT Respiratory Rate - - Oxygen Saturation - - Inhaled Oxygen Concentration - - Weight 55.5 kg (122 lb 4 oz) 11/29/2021 10:13 AM CDT Height 160 cm (5' 3 ) 11/29/2021 10:13 AM CDT Body Mass Index 21.66 11/29/2021 10:13 AM CDT Body Mass Index Percentile 59.00% 11/29/2021 10: 13 AM CDT Growth Chart: CDC (Girls, 2- 20 Years) documented in this encounter Discharge Instructions * Patient Instructions* Va Olivo MD - 11/29/2021 10:06 AM CDT Images from the original note were not included. YOUR GROWING CHILD: FIFTEEN to EIGHTEEN YEARS Child???s Name: [place] Today???s Date: 11/29/2021 Wt Readings from Last 2 Encounters: 11/05/20 [...] Years) data. Immunization History Administered Date(s) Administered DTAP/HEP B/IPV 01/06/2005, 04/08/2005, 07/04/2005 DTAP/IPV 01/24/2009 DTaP 11/05/2006 FLU VACCINE TRI IIV3 SPLIT PF IM (FLUVIRIN) 05/07/2011 HEP A PEDS 2 DOSE 11/11/2005, 11/05/2006 HIB BOOSTER 01/06/2005, 04/08/2005, 11/11/2005 Human Papilloma Virus Ninevalent Vaccine 02/01/2016, 02/17/2017 MENINGOCOCCAL CONJUGATE (MCV4P) 02/01/2016, 11/05/2020 MMR 11/11/2005, 01/24/2009 PNEUMOCOCCAL PCV7 CONJ, PEDS 01/06/2005, 04/08/2005, 07/04/2005, 11/11/2005 TDAP 02/01/2016 VARICELLA 11/11/2005, 01/24/2009 If you need to reach a care taker after normal business hours, please call our [...] share in (or continuing to share in) stock control clerk. Also increase awareness about community issues and [...] Progress Notes * Va Olivo MD - 11/29/2021 10:06 AM CDT Images from the original note were not included. 16 year old [facility] Interval History: Greyson Kevin is a 16 year old female who is accompanied to today's visit by mom for a 16 year old checkup Parental/Patient Concerns: REferral to PT for gracia splints - working with associate trainer with track hasn't helped [facility]ed [facility] by [facility], is going to go back to change it due to heavier periods. STD testing negative. Recent visits to Hospital / ER/ Urgent Care: No Current Medications: infreq use of inhaler Current Outpatient Medications Medication Sig Dispense Refill ??? albuterol HFA (PROAIR HFA) 108 (90 Base) MCG/ACT inhaler INHALE 2 PUFFS BY MOUTH EVERY 4 HOURS NEEDED FOR WHEEZING OR COUGH; USE WITH SPACER 2 Inhaler 3 No current facility-administered medications for this encounter. Allergies: To Medications: NONE/ SEE BELOW No Known Allergies PAST MEDICAL HISTORY / ONGOING MEDICAL PROBLEMS Patient Active Problem List: History of syncope Mild intermittent asthma without complication no syncope in last year Teen labs: Done last year TB Exposure Risk: living with someone who has been: -living on the street, homeless or skilled nursing -recently released from a half-way, skilled nursing, or half-way -known to have tuberculosis, AIDS or is immunocompromised -comes from or has visited an area known to have tuberculosis -abuses drugs or is an IV drug user -is a migrant vegetable ii farmworker -or has had a positive PPD or TB test -No- Family History: Reviewed and non-contributory Social History: Lives with mom, step dad , sibs , Father is involved Smokers Inside OR Outside House: No If YES, then I discussed cessation, benefits to wallet AND health, setting example for children. SCHOOL: Grade: 11 Grades: average Screen for Depression: PHQ9 Little interest or pleasure in doing things: Several days Feeling down, depressed, or hopeless: Several days Depression Risk: 2 Trouble falling or staying asleep, or sleeping too much: Nearly every day Feeling tired or having little energy: Several days Poor appetite or overeating: Several days Feeling bad about yourself - or that you are a failure or have let yourself or your family down: Not at all Trouble concentrating on things, such as reading the newspaper or watching television: Several days Moving or speaking so slowly that other people could have noticed? Or the opposite - being so fidgety or restless that you have been moving around a lot more than usual.: Not at all Thoughts that you would be better off or hurting yourself in some way: Not at all Depression Risk Score: 8 Greyson had a score of on the PHQ Depression Screening. As a follow-up, counseling was provided. I spent 5 minutes reviewing and discussing this with Greyson. It is mostly due to poor sleep hygiene HIGH RISK BEHAVIORS: - Cigarettes: no - Alcohol: no - Drugs: no - Friends smoking / Drinking / Drugs: no - -Sexual activity: yes - Sexually active friends: yes Discussed abstinence and safe sex Menstrual History: Female Yes If yes, then Menarche age 12 years LMP: 2 wks ago (0=now) Every irregular (about) Days LIVING WITH TEEN: Sleepin-6 hours - through the night -NO - own bedroom - good bedtime routine -NO - TV/Phone/computer in bedroom -Yes discussed issue associated with sleep problems Nutrition: - milk (16-24 oz per day) Discussed Calcium substitutes - fruits - meat - veggies - limit juice and soda Output: Stool: Soft stools regularly- Yes Dental: - brush teeth twice per day, use floss daily - fluoride containing tooth paste - has a regular dentist Hearing and Vision: Hearing Screening Comments: Right and Left Ear Passed OAE Hearing: Parental perception of hearing is normal, Examined with otoscope- yes Passed Hearing screening today- Yes Vision: Parental/child perception of vision is normal Normal pupillary response /red reflex / tracking / ocular movement Passed vision screening today- No , recent eye exam, wears glasses Developmental Milestones: Social / Communication: MINIMAL - Follows rules at school - Follows rules at home Fine / Gross Motor: Level of activity- In sports- Likes track PHYSICAL EXAM: done appropriately unclothed Vitals: Patient Vitals for the past 24 hrs: BP Temp Temp src Pulse Height Weight 11/29/21 1013 124/79 97 ??F (36.1 ??C) Temporal 77 1.6 m (5' 3 ) 55.5 kg (122 lb 4 oz) Height: 33 %ile (Z= -0.45) based on CDC (Girls, 2-20 Years) [id number]-puf-uox data based on Stature recorded on 11/29/2021. Weight: 51 %ile (Z= 0.03) based on CDC (Girls, 2-20 Years) [id number] data using vitals from 11/29/2021. BMI: 59 %ile (Z= 0.23) based on [facility] (Girls, 2-20 Years) BMI-for-age based on BMI available as of 11/29/2021. General Appearance: Well developed in no acute [...] Non-distended No masses Normoactive bowel sounds Genitalia declined Trunk and Spine: Grossly intact Straight NO Scoliois Extremities: Moving all extremitites well Normal gait and strength Reflexes: Normal tone Good and equal patellar reflexes RESULTS: No results found for this or any previous visit (from the past 72 hour(s)). ASSESSMENT / EDUCATION / PLAN: ICD-10-CM 1. Encounter for well child visit at 16 years of age Z00.129 2. Medial tibial stress syndrome, unspecified laterality, initial encounter S86.896B Ailin referral to Physical Therapy 3. Poor sleep hygiene Z72.821 sleep hygiene discussed at length Well check -normal exam except as noted. Growth normal. Development normal - Well Child Check- Normal 16 year old - Anticipatory Guidance Given - no smoking - pool safety / swimming - smoke detector - discussed drinking/driving/calling parents - if guns in house...safety discussed PARENTS: KNOW YOUR CHILD'S BEST FRIEND AND PARENTS - Immunizations: - vaccine refusal Yes - flu vaccine (if in season) and covid vaccine declined (and face to face counseling regarding diseases / vaccine risks, efficacy and benefits) - Feeding / Nutrition: - continue with milk 16-24 oz /day - wide variety OK - water for thirst - limit juice/sugary drinks ORDERS: Orders Placed This Encounter ??? Ailin referral to Physical Therapy Standing Status: Future Standing Expiration Date: 11/29/2022 Referral Priority: Routine Referral Type: PT/OT/ST Referral Reason: Specialty Services Required Referral Location: [facility] Number of Visits Requested: 1 Active Orders There are no active orders. FOLLOW UP AT: 17 year well child check up, sooner for illnesses / questions Patient Instructions YOUR GROWING CHILD: FIFTEEN to EIGHTEEN YEARS Child???s Name: [place] Today???s Date: 11/29/2021 Wt Readings from Last 2 Encounters: 11/05/20 [...] Ninevalent Vaccine 02/01/2016, 02/17/2017 ??? MENINGOCOCCAL CONJUGATE (MCV4P) 02/01/2016, 11/05/2020 ??? MMR 11/11/2005, 01/24/2009 ??? PNEUMOCOCCAL PCV7 CONJ, PEDS 01/06/2005, 04/08/2005, 07/04/2005, 11/11/2005 ??? TDAP 02/01/2016 ??? VARICELLA 11/11/2005, 01/24/2009 If you need to reach a care taker after normal business hours, please call our [...] share in (or continuing to share in) stock control clerk. Also increase awareness about community issues and [...] good role model! documented in this encounter Plan of Treatment Not on file documented as of this encounter Goals Goal Patient Goal Type Associated Problems Recent Progress Patient-Stated? Author Yearly PCP visit Lifestyle No Aster Garnica RN Note: Come into office for yearly wcc. 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
--- OUTSIDE RECORDS SUMMARY | 2024-07-18 03:59 | XMS_ITS | Encounter Summary ---
Author Organization [facility] Address [address] [place] [address] Care Team Providers Care Paper Wrapping Machine Operator Name Role Phone Va Olivo MD Primary Care Provider [phone] Reason for Visit * Reason Onset Date Comments Forms 02/08/2021 r/t sports physi debra Encounter Details Date Type Department Care Team (Late st Contact Info) Description 02/08/2021 Telephone [facility] [address] , [address] [place] [address] Gely Mares RN Forms (r/t sports physical) Social History Tobacco Use Types Packs/Day Years Used Date Smoking Tobacco: Never Assessed Sex and Gender Information Value Date Recorded Sex Assigned at Not on file Gender Identity Not on file Sexual Orientation Not on file documented as of this encounter Miscellaneous Notes * Telephone Encounter - Gely Mares RN - 02/11/2021 4:43 PM CDT Called mom and let her know Dr. Olivo willing to fill out for Journey but mom will need to complete her section before Dr. Olivo fills out hers. Mom states she is waiting for assistant women's rowing coach to send what is needed and then she will bring it all up. Let mom know that sounds good. * Telephone Encounter - Va Olivo MD - 02/11/2021 7:47 AM CDT I can fill out a sports physical based on October's visit but mom needs to come in and fill out her portion of the sports physical for me to review before I can fill out my portion. She can come in anyday this week except Thursday, fill it out, and wait for me to fill out my portion and give it to her - between hours of 830 and 1145 or 1-4. * Telephone Encounter - Gely Mares RN - 02/08/2021 5:07 PM CDT Called mom and let her know that we will have to wait until Dr. Olivo gets back to see if she is willing to fill a sports physical out from her last visit. Dr. Olivo was on vacation this week but will be back next week Thursday and be able to advise what she will do. Mom verbalized understanding and agreeable to plan. [...] on filedocumented in this encounter Care Teams Paper Wrapping Machine Operator Relationship Specialty Start Date End Date Va Olivo MD PCP - General Pediatrics 12/08/17 documented as of this encounter
--- OUTSIDE RECORDS SUMMARY | 2024-07-18 03:59 | XMS_ITS | Encounter Summary ---
Author Organization [facility] Address [address] [place] [address] Care Team Providers Care Workday Senior Associate Name Role Phone Va Olivo MD Primary Care Provider [phone] Encounter Details Date Type Department Care Team (Latest Contact Info) Description 05/19/2022 Travel Social History Tobacco Use Types Packs/Day [...] Coronavirus/COVID-19? No / Unsure 05/19/2022 9:59 AM PRESALES SENIOR SPECIALIST documented as of this encounter Plan of [...] on filedocumented in this encounter Care Teams Workday Senior Associate Relationship Specialty Start Date End Date Va Olivo MD PCP - General Pediatrics 12/08/17 documented as of this encounter
--- OUTSIDE RECORDS SUMMARY | 2024-07-18 03:59 | XMS_ITS | Encounter Summary ---
Author Organization [facility] Address [address] [place] [address] Care Team Providers Care Real Estate Consultant Name Role Phone Va Olivo MD Primary Care Provider [phone] Encounter Details Date Type Department Care Team (Latest Contact Info) Description 04/17/2022 Travel Social History Tobacco Use Types Packs/Day [...] PM CDT documented as of this encounter Plan of [...] on filedocumented in this encounter Care Teams Real Estate Consultant Relationship Specialty Start Date End Date Va Olivo MD PCP - General Pediatrics 12/08/17 documented as of this encounter
--- OUTSIDE RECORDS SUMMARY | 2024-07-18 03:59 | XMS_ITS | Encounter Summary ---
Author Organization [facility] Address [address] [place] [address] Care Team Providers Care Mold Runner Name Role Phone Va Olivo MD Primary Care Provider Reason for Visit * Reason Comments 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 Problem bilateral queen s plints Encounter Details Date Type Department Care Team (Latest Contact Info) Description 12/08/2017 1:35 PM CDT - 12/08/2017 11:59 PM T Hospital Encounter [facility] [address] , [address] [place] [address] Va Olivo MD [address] [place] [address] [phone] [place] [address] Discharge Disposition: Home or Self [...] Taken Comments Blood Pressure - - Pulse 58 12/08/2017 1:44 PM CDT Temperature 36.8 ??C (98.2 ??F) 12/08/2017 1:44 PM CD T Respiratory Rate 20 12/08/2017 1:44 PM CDT Oxygen Saturation - - Inhaled Oxygen Concentration - - Weight 44.1 kg (97 lb 4.8 oz) 12/08/2017 1:44 PM CDT Height 152.4 cm (5') 12/08/2017 1:44 PM CDT Body Mass Index 19 12/08/2017 1:44 PM CDT Body Mass Index Percentile 53.21% 12/08/2017 1:4 4 PM CDT Growth Chart: [facility] (Girls, 2- 20 Years) documented in this encounter Discharge Instructions * Patient Instructions* Va Olivo MD - 12/08/2017 1:53 PM CDT Ice shins after running. Use pain level to dictate when to stop running documented in this encounter Medications at Time [...] Progress Notes * Va Olivo MD - 12/08/2017 1:36 PM CDT ACUTE / SICK VISIT NOTE SUBJECTIVE: Jarad Kevin is a 12 y.o. 1 m.o. female brought in today by mom. CHIEF COMPLAINT: (per MD) The chief complaint is leg pain HISTORY OF PRESENT ILLNESS: Patient developed lower leg pain - bilateral - in October at the start of track season. 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 Pain only occurs during running and lasts for maybe up to an hour after she stops. She does dostretches and warm ups. PROBLEMS: Patient Active Problem List Diagnosis ??? GERD (gastroesophageal reflux disease) ??? Failure to attend appointment ??? History of asthma ??? History of syncope MEDICATIONS: none ALLERGIES: No Known Allergies ROS: Negative except as in HPI OBJECTIVE: Patient Vitals for the past 24 hrs: Temp Temp src Pulse Resp Height Weight 12/08/17 1344 98.2 ??F (36.8 ??C) Oral 58 20 1.524 m (5') 44.1 kg (97 lb 4.8 oz) Wt Readings from Last 3 Encounters: 12/08/17 44.1 kg (97 lb 4.8 oz) (41 %, Z= -0.24)* 02/17/17 37.7 kg (83 lb 2 oz) (25 %, Z= -0.67)* 02/01/16 32.3 kg (71 lb 3.2 oz) (18 %, Z= -0.90)* * Growth percentiles are based on CDC 2-20 Years data. PHYSICAL EXAM General: WN WD female in NAD. Skin: well perfused, no rash Lungs: Good air entry bilaterally, equal breath sounds, CTA, no retractions. Extremities: no edema, clubbing or cyanosis. Moving all extremities well. Minimal tenderness over muscle insertion sites on anterio-medial tibia bilaterally Neuro: Awake alert responsive. Normal tone. No focal deficits. ASSESSMENT / PLAN: ICD-10-CM 1. Queen splints, initial encounter S86.899A naproxen (NAPROSYN) 375 MG tablet See patient instructions for info discussed and given Follow up as needed if symptoms worsen or persist or with new concerns. ORDERS: Orders Placed This Encounter ??? naproxen (NAPROSYN) 375 MG tablet Sig: Take 1 tablet by mouth 2 times daily as needed for Pain Dispense: 30 tablet Refill: 2 ??? albuterol HFA (PROAIR HFA) 108 (90 BASE) MCG/ACT inhaler Sig: INHALE 2 PUFFS BY MOUTH EVERY 4 HOURS NEEDED FOR WHEEZING OR COUGH; USE WITH SPACER Dispense: 17 g Refill: 3 Active Orders There are no active orders. Patient Instructions Ice shins after running. Use pain level to dictate when to stop running documented in this encounter Plan of Treatment Not on file documented as of this encounter Visit Diagnoses Diagnosis Queen splints, initial encounter- Primary Other injury of other muscle(s) and tendon(s) at lower leg level, left leg, initial encounter Other injury of other muscle(s) and tendon(s) at lower leg level, right leg, initial encounter Activity involving running Activities involving running documented in this encounter Care Teams Mold Runner Relationship Specialty Start Date End Date Va Olivo MD PCP - General Pediatrics 12/08/17 documented as of this encounter
--- OUTSIDE RECORDS SUMMARY | 2024-07-18 03:59 | XMS_ITS | Encounter Summary ---
Author Organization [facility] Address [address] [facility] [place] [address] Care Team Providers Care Iron Assorter Name Role Phone Va Olivo MD Primary Care Provider [phone] Reason for Referral * Neurology (Routine) - Closed Specialty Diagnoses / Procedures Referred By Julia lemus Referred To Contact Electrophysiology Diagnoses Seizure (HCC) Procedures EEG AWAKE AND ASLEEP Jhonatan Nuñez MD [address] [place] [address] Cg Eeg/Emg [address] [place] [address] Referral ID Status Reason Start Date Expiration Date Visits Re quested Visits Authorized [id number] Closed 05/13/2022 05/13/2023 1 1 ECT ESTIMATOR Reason for Visit * Neurology (Routine) - Closed Specialty Diagnoses / Procedures Referred By Julia lemus Referred To Contact Electrophysiology Diagnoses Seizure (HCC) Procedures EEG AWAKE AND ASLEEP Jhonatan Nuñez MD [address] [place] [id number] Cg Eeg/Emg [address] [place] [address] Referral ID Status Reason Start Date Expiration Date Visits Re quested Visits Authorized [id number] Closed 05/13/2022 05/13/2023 1 1 Encounter Details Date Type Department Care Team (Latest Contact Info) Description 05/19/2022 10:00 AM PROJECT ESTIMATOR - 05/19/2022 11:59 PM PROJECT ESTIMATOR Hospital Encounter [facility] [address] [place] [address] Jhonatan Nuñez MD [address] [place] [address] Discharge Disposition: Home or Self Care Social [...] Coronavirus/COVID-19? No / Unsure 05/19/2022 9:59 AM PROJECT ESTIMATOR documented as of this encounter Medications at [...] 04/29/2022 03/18/2023 documented as of this encounter Procedure Notes * Jhonatan Nuñez MD - 05/19/2022 4:17 PM CST Images from the original note were not included. Name: Greyson Kevin CSN: [id number] Type: Routine Date of Test: 05/19/2022 Ordering Provider: Jhonatan Nuñez MD PCP: Va Olivo MD Cutter Machine Tender: Bob Nuñez MD Routine EEG Report DESCRIPTION Indication: The EEG is performed in 16 year old 6 month old female for evaluation of epileptiform activity. Background: During the awake state with eyes closed the background consists of 11 Hz posterior dominant rhythm with an amplitude of approximately 50 microvolts which attenuates appropriately with eye opening. The recording is continuous. There is a well-developed anterior-posterior gradient. No significant asymmetries of background activity are noted. With drowsiness, there is waxing and waning of the dominant rhythm with eventual replacement by a mixture of beta, alpha, and theta activity. As the patient enters stage II of sleep, symmetrical spindles and vertex sharp waves are present. Arousal is unremarkable. Epileptiform activity: No epileptiform activity is noted during the record.. Seizures: There are no seizures noted during the recording. Activation Procedures: Hyperventillation was deferred due to not having her rescue inhaler available. Photic stimulation using a step-gale increase in photic frequency results in no driving responses or activation of epileptiform activity. INTERPRETATION: This EEG recorded in the awake and asleep states is within normal limits for age. CLINICAL CORRELATION The diagnosis of a seizure remains a clinical one. A normal EEG does not exclude this diagnosis. However, there are no epileptiform features in this recording to suggest an underlying diagnosis of epilepsy. Therefore, clinical correlation is recommended. EKG is obtained for the purpose of identifying artifact and will not be interpreted. Jhonatan Nuñez MD Pediatric Neurology ECT ESTIMATOR * Valeri Nazario EEG T. - 05/19/2022 11:28 AM CST Outpatient EEG completed. Pt tolerated well. No skin concerns. ECT ESTIMATOR documented in this encounter Plan of Treatment Not on file documented as of this encounter Goals Goal Patient Goal Type Associated Problems Recent Progress Patient-Stated? Author Yearly PCP visit Lifestyle No Nahun, Aster Lynn, RN Note: Come into office for yearly wcc. Take recommended medication(s) Lifestyle No Aster Garnica, RN documented as of this encounter Procedures Procedure Name Priority Date/Time Associated Diagnosis Comments EEG AWAKE AND ASLEEP Routine 05/19/2022 10:05 AM PROJECT ESTIMATOR Seizure (HCC) documented in this encounter Visit Diagnoses Diagnosis Seizure (HCC) Other convulsions documented in this encounter Care Teams Iron Assorter Relationship Specialty Start Date End Date Va Olivo MD PCP - General Pediatrics 12/08/17 documented as of this encounter
--- OUTSIDE RECORDS SUMMARY | 2024-07-18 03:59 | XMS_ITS | Encounter Summary ---
Author Organization [facility] Address [address] [place] [address] Care Team Providers Care Plant Cytologist Name Role Phone Va Olivo MD Primary Care Provider Encounter Details Date Type Department Care Team (Late st Contact Info) Description 02/21/2019 Orders Only [facility] [id number] [place] [address] Va Olivo MD [address] [place] [address] [phone] [place] [address] Social History Tobacco Use Types Packs/Day Years Used Date Smoking Tobacco: Never Assessed Sex and Gender Information Value Date Recorded Sex Assigned at Not on file Gender Identity Not on file Sexual Orientation Not on file documented as of this encounter Plan of Treatment Not on file documented as of this encounter Visit Diagnoses Not on filedocumented in this encounter Care Teams Plant Cytologist Relationship Specialty Start Date End Date Va Olivo MD PCP - General Pediatrics 12/08/17 documented as of this encounter
--- OUTSIDE RECORDS SUMMARY | 2024-07-18 03:59 | XMS_ITS | Encounter Summary ---
Author Organization [facility] Address [address] [place] [address] Care Team Providers Care Manufacturing Sales Representative Name Role Phone Va Olivo MD Primary Care Provider [phone] Reason for Referral * Evaluate (Urgent) - Closed Specialty Diagnoses / Procedures Referred By Contac t Referred To Contact Diagnoses Syncope and collapse Seizure-like activity (HCC) [place] [id number] [place] [address] [place] [id number] [place] [id number] Referral ID Status Reason Start Date Expiration Date V isits Requested Visits Authorized [id number] Closed Specialty Services Required 04/16/2022 04/16/2023 1 1 Reason for Visit * Reason Comments Altered mental status Encounter Details Date Type Department Care Team (Late st Contact Info) Description 04/16/2022 1:27 PM CDT - 04/16/2022 5:11 PM CDT Emergency ER at [facility] [address] [place], [place] [id number] [place] [id number] [facility] EMERGENCY DEPT [place], [place] [id number] Syncope and collapse; Seizure-like activity (HCC); Neck pain Discharge Disposition: Home or Self Care Social [...] Sign Reading Time Taken Comments Blood Pressure 137/85 04/16/2022 1:25 PM CDT Pulse 73 04/16/2022 1:25 PM CDT Temperature 36.7 ??C (98.1 ??F) 04/16/2022 1:25 PM CD T Respiratory Rate 18 04/16/2022 1:25 PM CDT Oxygen Saturation 100% 04/16/2022 1:25 PM CDT Inhaled Oxygen Concentration - - Weight 54.4 kg (120 lb) 04/16/2022 1:25 PM CDT Height 160 cm (5' 3 ) 04/16/2022 1:25 PM CDT Body Mass Index 21.26 04/16/2022 1:25 PM CDT Body Mass Index Percentile 52.46% 04/16/2022 1:2 5 PM CDT Growth Chart: [facility] (Girls, 2- 20 Years) documented in this encounter Discharge Instructions * Discharge Instructions* Jh Simpson MD - 04/16/2022 4:[address] until cleared by physician. Do not swim/take baths until cleared by physician. Do not cook over open flames until cleared by physician. documented in this encounter Medications at Time [...] OR COUGH; USE WITH SPACER 8 g 1 04/15/2022 04/29/2022 documented as of this encounter ED Notes * Jh Simpson MD - 04/16/2022 3:22 PM CDT [facility] [id number] [facility] History Chief Complaint Patient presents with ??? Altered mental status HPI Greyson Kevin is a 16 year old female, history of seizure, depression, anxiety, asthma, presents due to syncope versus seizure Patient was at dress fitting Episode of unresponsiveness No incontinence Some confusion History of seizures years ago in grade school Has not seen a neurologist due to resolved Did fall, did hit her head Complains of pain to the head and neck, moderate, nonradiating Past Medical History: Diagnosis Date ??? Anxiety disorder 2016 ??? Chlamydia 09/2021 ??? Depression 2016 ??? Gonorrhea 09/2021 ??? Mild intermittent asthma, uncomplicated ??? Seizure (CMS/HCC) happened thru out [employer] Past Surgical History: Procedure Laterality Date ??? NEGATIVE SURGICAL HISTORY Family History Problem Relation Name Age of Onset ??? Diabetes - Type 2 Mother ??? None Known Father ??? Diabetes - Type 2 Paternal Grandmother ??? None Known half-sister ??? None Known half-sister ??? None Known half-sister ??? None Known half-brother Social History Socioeconomic History ??? Marital status: [...] on file Housing Stability: Not on file Review of Systems Review of Systems Constitutional: Negative for chills and fever. HENT: Negative for hearing loss. Eyes: Negative for blurred vision. Respiratory: Negative for shortness of breath. Cardiovascular: Negative for chest pain. Gastrointestinal: Negative for abdominal pain. Genitourinary: Negative for dysuria. Musculoskeletal: Positive for neck pain. Skin: Negative for rash. Neurological: Positive for seizures and loss of consciousness. Negative for focal weakness. Endo/Heme/Allergies: Does not bruise/bleed easily. Physical Exam BP 137/85 Pulse 73 Temp 98.1 ??F (36.7 ??C) Resp 18 Ht 1.6 m (5' 3 ) Wt 54.4 kg (120 lb) LMP 03/31/2022 (Approximate) SpO2 100% BMI 21.26 kg/m?? Physical Exam Vitals and nursing note reviewed. Constitutional: Appearance: She is well-developed. Comments: Cooperative Pleasant young woman, sitting in bed HENT: Head: Normocephalic and atraumatic. Eyes: Conjunctiva/sclera: Conjunctivae normal. Pupils: Pupils are equal, round, and reactive to light. Neck: Comments: Collar Cardiovascular: Rate and Rhythm: Normal rate and regular rhythm. Pulmonary: Effort: Pulmonary effort is normal. No respiratory distress. Breath sounds: No stridor. Abdominal: Palpations: Abdomen is soft. Tenderness: There is no abdominal tenderness. Skin: General: Skin is warm. Neurological: General: No focal deficit present. Mental Status: She is alert and oriented to person, place, and time. Cranial Nerves: No cranial nerve deficit. Comments: No facial droop, no drift Psychiatric: Behavior: Behavior normal. Medications Current Outpatient Medications Medication Sig Dispense Refill ??? albuterol HFA (ProAir HFA) 108 (90 Base) MCG/ACT inhaler INHALE 2 PUFFS BY MOUTH EVERY 4 HOURS NEEDED FOR WHEEZING OR COUGH; USE WITH SPACER 8 g 1 ??? LESSINA-28 0.1-20 MG-MCG tablet Take 1 (one) tablet by mouth once daily Reasons: Control Treatment, irregular periods 1 packet 12 Procedures Procedures Lab/SPO2 Interpretation Hospital Encounter on 04/16/22 COMPREHENSIVE METABOLIC PANEL Result Value Ref Range Glucose 98 70 - 105 mg/dL Sodium 139 136 - 145 mmol/L Potassium 3.9 3.5 - 5.1 mmol/L Chloride 107 98 - 107 mmol/L CO2 21 20 - 28 mmol/L Calcium 9.4 8.4 - 10.4 mg/dL Anion Gap 11 8 - 18 mmol/L BUN 11 7 - 18.7 mg/dL Creatinine 0.82 0.57 - 1.11 mg/dL Alkaline Phosphatase 104 100 - 390 U/L ALT 11 0 - 61 U/L AST 19 5 - 34 U/L Protein Total 7.3 6.4 - 8.3 gm/dL Albumin 4.3 3.4 - 5.0 gm/dL Bilirubin Total 0.3 0.2 - 1.2 mg/dL eGFR by CKD-EPI CBC W AUTO DIFFERENTIAL Result Value Ref Range WBC 5.6 4.5 - 11.0 x10E9/L WBC Corrected RBC 4.34 4.10 - 5.10 x10E12/L Hemoglobin 11.7 (L) 12.0 - 16.0 gm/dL Hematocrit 38.2 36.0 - 47.0 % MCV 88.0 78.0 - 102.0 fl MCH 27.0 25.0 - 35.0 pg MCHC 30.6 (L) 31.0 - 37.0 gm/dL Platelet Count 327 100 - 400 x10E9/L RDW-CV 12.3 11.5 - 14.0 % MPV 10.4 (H) 6.0 - 9.5 fl Neutrophils % 63.8 31.0 - 78.0 % Lymphocytes % 27.2 13.0 - 54.0 % Monocytes % 6.8 4.0 - 13.0 % Eosinophils % 1.1 0.0 - 8.0 % Basophils % 0.7 % Immature Granulocytes 0.4 % Neutrophil Absolute 3.59 1.4 - 8.58 x10E9/L Lymphocytes Absolute 1.53 0.59 - 5.94 x10E9/L Monocytes Absolute 0.38 0.18 - 1.43 x10E9/L Eosinophils Absolute 0.06 0 - 0.88 x10E9/L Basophils Absolute 0.04 0 - 0.22 x10E9/L Immature Granulocytes Absolute 0.02 0 - 0.11 x10E9/L nRBC Auto 0 /100 WBC HCG BETA BLOOD QUANTITATIVE Result Value Ref Range hCG Quantitative <1.20 mIU/mL MAGNESIUM BLOOD Result Value Ref Range Magnesium 1.9 1.7 - 2.3 mg/dL TROPONIN I Result Value Ref Range Troponin I <0.010 <0.038 ng/mL LACTIC ACID BLOOD Result Value Ref Range Lactic Acid 1.76 <=2 mmol/L PROLACTIN Result Value Ref Range Prolactin 30.56 (H) 5.18 - 26.53 ng/mL DRUG SCREEN TOX LIMITED BLD PNL 3 INHOUSE Result Value Ref Range Acetaminophen <3.0 (L) 10.0 - 30.0 ug/mL Ethanol <10.0 <10 mg/dL Salicylate <5.0 (L) 15.0 - 30.0 mg/dL CT HEAD NON CONTRAST - suspected intracranial hemorrhage (Results Pending) CT CERVICAL SPINE NON CONTRAST - suspected c-spine fracture (Results Pending) Progress Notes ED Course Clinical Impressions as of 04/16/22 1522 Syncope and collapse Seizure-like activity (CMS/HCC) Neck pain Medical Decision Making Differential includes seizure, strain, sprain, contusion, syncope, metabolic, electrolyte abnormality, other Plan for labs, monitoring, symptom control, CT due to head injury CT reassuring Labs reassuring Plan for outpatient Neurology follow-up, seizure precautions discussed Orders Placed This Encounter ??? CT HEAD NON CONTRAST - suspected intracranial hemorrhage ??? CT CERVICAL SPINE NON CONTRAST - suspected c-spine fracture ??? COMPREHENSIVE METABOLIC PANEL ??? CBC W AUTO DIFFERENTIAL ??? HCG BETA BLOOD QUANTITATIVE ??? MAGNESIUM BLOOD ??? TROPONIN I ??? TROPONIN I ??? LACTIC ACID BLOOD ??? PROLACTIN ??? DRUG SCREEN TOX LIMITED BLD PNL 3 INHOUSE ??? URINE DRUG SCREEN IMMUNOASSAY ??? EKG 12-LEAD ??? ondansetron (Zofran) injection 4 mg * Dora Garcia RN - 04/16/2022 2:16 PM CDT Bed: [id number] Expected date: Expected time: Means of arrival: Comments: WR --Erickson 6A * Zakia Costa PA-C - 04/16/2022 1:46 PM CDT RME Note CC: Altered mental status Provider in Triage HPI: Greyson Kevin is a 16 year old female who presents with syncopal episode during dress fitting. Denies head injury or neck injury or other injury after passing out. Was complaining of neck pain prior to passing out. R sided neck pain radiating to R shoulder. Headache. Notes nausea without vomiting. Denies starting new medications. Denies fever, chills, cough, recent illness. Has history of this happening in the past. Last time episode occurred was in 1st grade elementary. Mother providing much of history. Patient is not cooperative with history or exam, does not speak responds to painful stimuli, somewhat following commands. Limited exam at this time in minimally cooperative patient. Per front end driver RN, patient was initially responding and answering questions but then stopped answering questions when mother was present. PMH: Seizures not on medications for this, Asthma No cardiac history +OCPs Review of Systems: All other systems reviewed and are negative. Primary System Noted in HPI Constitutional: No fevers or chills Psychiatric: No mood changes Limited Chart History: Past Medical History: Diagnosis Date ??? Anxiety disorder 2017 ??? Chlamydia 09/2021 ??? Depression 2017 ??? Gonorrhea 09/2021 ??? Mild intermittent asthma, uncomplicated ??? Seizure (CMS/HCC) happened thru out [employer] Past Surgical History: Procedure Laterality Date ??? NEGATIVE SURGICAL HISTORY No current facility-administered medications for this encounter. Current Outpatient Medications Medication Sig Dispense Refill ??? albuterol HFA (ProAir HFA) 108 (90 Base) MCG/ACT inhaler INHALE 2 PUFFS BY MOUTH EVERY 4 HOURS NEEDED FOR WHEEZING OR COUGH; USE WITH SPACER 8 g 1 ??? LESSINA-28 0.1-20 MG-MCG tablet Take 1 (one) tablet by mouth once daily Reasons: Control Treatment, irregular periods 1 packet 12 No Known Allergies PCP: Va Olivo MD (Above may be pending completion) VS: BP 137/85 Pulse 73 Temp 98.1 ??F (36.7 ??C) Resp 18 Ht 1.6 m (5' 3 ) Wt 54.4 kg (120 lb) SpO2 100% Pertinent Physical Findings: Constitutional: vitals afebrile and within normal limits, unresponsive to questions, responds to painful stimuli but does not answer questions, somewhat follows some commands, WDWN Head: Head normocephalic, atraumatic Eyes: conjunctiva clear ENT: no rhinorrhea Neck: neck supple, no nuchal rigidity +C-collar +Midline tenderness Resp: respirations even and unlabored, lungs clear bilaterally SpO2 100% on RA CV: Heart RRR, no m/c/r/g, no chest tenderness,2+ radial pulses Abd: nondistended nontender soft throughout Skin: warm, dry Neuro: unresponsive to questions, responds to painful stimuli but does not answer questions, somewhat follows some commands, equal mounted police officer strength. No seizure-like activity noted. Psych: Normal affect MDM: I have reviewed all lab and imaging resulted ordered during this visit and available at the time ofthis note. Triage notes and available nursing notes reviewed. Previous medical record reviewed whenavailable. Management options include but not limited to: physical exam, laboratory testing, discussion with other providers. This is a medical screening assessment for the patient's initial workup. Patient encouraged to stayfor the entire duration of their workup. Another ED provider will re-assess the patient, order additional workup if necessary, and determine disposition. MDMCOVIDDISCLAIMER Management decisions on this patient encounter were made during the COVID-19 public health emergency. As a result, admission vs discharge decisions have necessarily changed in order to protect patients from nosocomial spread of SARS-CoV-2. The ability to test this patient for the SARS-CoV-2 virus is limited by national supplies and decision to test or not test this patient was made in the light of health system recommendations. Furthermore the risk of admission and discharge was made based on the patient's presenting symptoms, vital signs, risk of nosocomial infections and resource availability. Initial Plan: labs, ekg, head CT, C-spine CT, tox screen ,main ED bed when available * Johanna Parham RN - 04/16/2022 1:22 PM CDT Per mom pt has hx of sleep seizures and had one today during a dress fitting, pt appears pos ictal and not speaking, VSS, pt maintaining airway, pt was complaining of neck pain prior to syncopal episode. documented in this encounter Miscellaneous Notes * Clinical References AVS - Jh Simpson MD - 04/16/2022 4:42 PM CDT [id number] Recurrent Seizure (Child) Your child has had another seizure today. A common cause of seizures that keep happening (recurrentseizures) is missing doses of seizure medicine. But sometimes seizures are hard to control even when your child takes the medicine correctly. If this is the case for your child, their healthcare provider may need to increase your child's dosage. Or your child may need to add another medicine, or change to a different medicine. Home care Follow these tips when caring for your child at home. For this seizure: ?? Seizures often aren?t predictable. Assume that a seizure could happen when you least expect it. Until the seizures are under good control, follow these steps: o Don't leave your child alone in a bathtub. If your child is old enough, use a shower instead. o Don't let your child swim, bike, or climb alone. o Keep your child away from situations in which a seizure could cause serious injury. These includebeing at the top of the stairs or handling sharp objects. ?? If medicine was prescribed to prevent seizures, give it exactly as directed. It doesn't work when taken as needed. Missing doses will increase the risk of having another seizure. ?? If your child misses a medicine dose, give them the missed dose as soon as you remember. If it?salmost time for the next dose, skip the missed dose. Restart the medicine at the next scheduled time. Don?t give your child extra medicine to make up the missed dose. ?? You may need to change things in your home to make it safer in case of a seizure. Things such asglass doors or tables could pose risk of serious injury. Look at ways to have your child stay away from these things. For future seizures: ?? If a seizure occurs again, turn your child onto their side. This will let any saliva or vomit drain out of the mouth and not into the lungs. Protect your child from injury. Don?t try to force anything into your child?s mouth. ?? Almost all seizures stop within 5 minutes. If your child is having a seizure that lasts longer than that, call 911. Also, call 911 if your child doesn't wake up between seizures, or is still confused more than 30 minutes after a seizure. ?? Your child's healthcare provider may prescribe a rescue medicine. This is to be used as needed for future seizures that don't stop on their own. Talk to the provider and make sure you understand how and when to use such rescue medicines. Follow-up care Follow up with your child's provider, or as advised. Keep a seizure calendar to record how often your child has a seizure. If your child is a teen being started on anti-seizure medicine and is old enough to get , make sure that they use additional control. Seizure medicine can affect how well control pills work, and they could become . Your child should also not have al cohol. If your child is a teen, talk to their provider about when they may start driving. Your child will need to be seizure-free for a certain amount of time in order to legally drive. When to get medical care Call your child's healthcare provider right away if any of these occur: ?? Seizures happen more often or last longer than normal ?? A seizure lasts more than 5 minutes ?? Your child doesn?t wake up between seizures ?? Fever (causing febrile seizures ?? Abnormal fussiness, drowsiness, or confusion ?? Stiff or painful neck ?? Headache that gets worse ?? New rash ?? Your child is hurt during a seizure Last Reviewed Date: 2021 ?? [id number] [employer]. All rights reserved. This information is not [...] Procedure Name Priority Date/Time Associated Diagnosis Comments CT CERVICAL SPINE WO CONTRAST STAT 04/16/2022 3:[address] Neck pain CT HEAD WO CONTRAST STAT 04/16/2022 3 :40 PM CDT Seizure-like activity (HCC) DRUG SCREEN TOX LIMITED BLD PNL 3 INHOUSE STAT 04/16/2022 2:02 PM CDT TROPONIN I STAT 04/16/2022 2:02 PM CDT PROLACTIN STAT 04/16/2022 2:02 PM CDT CBC W AUTO DIFFERENTIAL STAT 04/16/2022 2:02 PM CDT COMPREHENSIVE METABOLIC PANEL STAT 04/16/2022 2:02 PM CDT HCG BETA BLOOD QUANTITATIVE STAT 04/16/2022 2:02 PM CDT MAGNESIUM BLOOD STAT 04/16/2022 2:02 PM CDT LACTIC ACID BLOOD STAT 04/16/2022 2:0 2 PM CDT EKG 12-LEAD STAT 04/16/2022 1:59 PM CDT Syncope and collapse documented in this encounter Results * CT CERVICAL SPINE NON CONTRAST - [...] DATE/TIME OF EXAM: ??04/16/2022 3:40 PM, LOCATION ??[facility] INDICATION: R56.9: Unspecified convulsions (CMS/HCC) ADDITIONAL CLINICAL [...] CONTRAST,DATE/TIME OF EXAM: 04/16/2022 3:40 PM, LOCATION [facility] INDICATION: R56.9: Unspecified convulsions (CMS/HCC) ADDITIONAL CLINICAL [...] Bee MD on 04/16/2022 4:35 PM Zakia Costa PA-C CT ORDERABLES * CT HEAD NON CONTRAST [...] DATE/TIME OF EXAM: ??04/16/2022 3:40 PM, LOCATION ??[facility] INDICATION: R56.9: Unspecified convulsions (CMS/HCC) ADDITIONAL CLINICAL [...] CONTRAST,DATE/TIME OF EXAM: 04/16/2022 3:40 PM, LOCATION [facility] INDICATION: R56.9: Unspecified convulsions (CMS/HCC) ADDITIONAL CLINICAL [...] - 30.0 ug/mL 04/16/2022 2:35 PM CDT [facility] Ethanol <10.0 <10 mg/dL 04/16/2022 2:35 PM CDT [facility] Salicylate <5.0(L) 15.0 - 30.0 mg/dL 04/16/2022 2:35 PM CDT [facility] Blood BLOOD SPECIMEN / Unknown Venipuncture / Unknown 04/16/2022 2:02 PM CDT 04/16/2022 2:10 PM CDT Narrative [facility] - 04/16/2022 2:35 PM CDT [facility] [...] may alter the peak level. Contact the [facility] at or reserved for healthcare professionals to assist you in evaluating potentially toxic acetaminophen levels. Zakia Costa PA-C LAB - CHEMISTRY [facility]IMA [facility]ORE Performing Organization Address [facility] Co de Phone Number [facility] [address] [place] [phone] * (ABNORMAL) PROLACTIN (04/16/2022 2:02 PM CDT) Prolactin 30.56(H) 5.18 - 26.53 ng/mL 04/16/2022 2:58 PM CDT [facility] Blood BLOOD SPECIMEN / Unknown Venipuncture / Unknown 04/16/2022 2:02 PM CDT 04/16/2022 2:10 PM CDT Zakia Costa PA-C LAB - CHEMISTRY [facility]IM[facility] Performing Organization Address [facility] Co de Phone Number [facility] [id number] [place] [phone] * LACTIC ACID BLOOD (04/16/2022 2:02 PM CDT) Lactic Acid 1.76 <=2 mmol/L 04/16/2022 2:28 PM CDT [facility] Blood BLOOD SPECIMEN / Unknown Venipuncture / Unknown 04/16/2022 2:02 PM CDT 04/16/2022 2:11 PM CDT Zakia Costa PA-C LAB - CHEMISTRY ORDEliza MOORE Performing Organization Address [facility] Co de Phone Number [facility] [address] [place] [address] * TROPONIN I (04/16/2022 2:02 PM CDT) Pathologist [facility] Troponin I <0.010 <0.038 ng/mL 04/16/2022 2:37 PM CDT [facility] Blood BLOOD SPECIMEN / Unknown Venipuncture / Unknown 04/16/2022 2:02 PM CDT 04/16/2022 2:10 PM CDT Zakia Mo Igor RUSSELL LAB - CHEMISTRY [facility]IMA [facility] Performing Organization Address [facility] Co de Phone Number [facility] [address] [place] [phone] * MAGNESIUM BLOOD (04/16/2022 2:02 PM CDT) Pathologist [facility] Magnesium 1.9 1.7 - 2.3 mg/dL 04/16/2022 2:32 PM CDT [facility] Blood BLOOD SPECIMEN / Unknown Venipuncture / Unknown 04/16/2022 2:02 PM CDT 04/16/2022 2:10 PM CDT Zakia Mo Igor RUSSELL LAB - CHEMISTRY [facility]IMA [facility] Performing Organization Address [facility] de Phone Number [facility] [id number] [place] [address] * HCG BETA BLOOD QUANTITATIVE (04/16/2022 2:02 PM CDT) Pathologist [facility] hCG Quantitative <1.20 mIU/mL 04/16/20 2:56 PM CDT [facility] Blood BLOOD SPECIMEN / Unknown Venipuncture / Unknown 04/16/2022 2:02 PM CDT 04/16/2022 2:10 PM CDT Narrative [facility] - 04/16/2022 2:56 PM CDT ? [...] serum FSH >20 IU/L makes unlikely. Zakia F Ho PA-C LAB - CHEMISTRY SALIMA [facility] [address] [place] [id number] * (ABNORMAL) CBC W AUTO DIFFERENTIAL (04/16/2022 2:02 PM CDT) WBC 5.6 4.5 - 11.0 x10E9/L 04/16/2022 2:14 PM CDT [facility] WBC Corrected 04/16/2022 2:14 PM CDT [facility] RBC 4.34 4.10 - 5.10 x10E12/L 04/16/2022 2:14 PM CDT [facility] Hemoglobin 11.7(L) 12.0 - 16.0 gm/dL 04/16/2022 2:14 PM CDT [facility] Hematocrit 38.2 36.0 - 47.0 % 04/16/2022 2:14 PM CDT [facility] MCV 88.0 78.0 - 102.0 fl 04/16/2022 2:14 PM CDT [facility] MCH 27.0 25.0 - 35.0 pg 04/16/2022 2:14 PM CDT [facility] MCHC 30.6(L) 31.0 - 37.0 gm/dL 04/16/2022 2:14 PM CDT [facility] Platelet Count 327 100 - 400 x10E9/L 04/16/2022 2:14 PM CDT [facility] RDW-CV 12.3 11.5 - 14.0 % 04/16/2022 2:14 PM CDT [facility] MPV 10.4(H) 6.0 - 9.5 fl 04/16/2022 2:14 PM CDT [facility] Neutrophils % 63.8 31.0 - 78.0 % 04/16/2022 2:14 PM CDT [facility] Lymphocytes % 27.2 13.0 - 54.0 % 04/16/2022 2:14 PM CDT [facility] Monocytes % 6.8 4.0 - 13.0 % 04/16/2022 2:14 PM CDT [facility] Eosinophils % 1.1 0.0 - 8.0 % 04/16/2022 2:14 PM CDT [facility] Basophils % 0.7 % 04/16/2022 2:14 PM CDT [facility] Immature Granulocytes 0.4 % 04/16/2022 2:14 PM CDT [facility] Neutrophil Absolute 3.59 1.4 - 8.58 x10E9/L 04/16/2022 2:14 PM CDT [facility] Lymphocytes Absolute 1.53 0.59 - 5.94 x10E9/L 04/16/2022 2:14 PM CDT [facility] Monocytes Absolute 0.38 0.18 - 1.43 x10E9/L 04/16/2022 2:14 PM CDT [facility] Eosinophils Absolute 0.06 0 - 0.88 x10E9/L 04/16/2022 2:14 PM CDT [facility] Basophils Absolute 0.04 0 - 0.22 x10E9/L 04/16/2022 2:14 PM CDT [facility] Immature Granulocytes Absolute 0.02 0 - 0.11 x10E9/L 04/16/2022 2:14 PM CDT [facility] nRBC Auto 0 /100 WBC 04/16/2022 2:14 PM CDT [facility] Blood BLOOD SPECIMEN / Unknown Venipuncture / Unknown 04/16/2022 2:02 PM CDT 04/16/2022 2:10 PM CDT Zakia Costa PA-C LAB - HEMATOLOGY ORD ERABLES [facility] [facility] [address] [place] [address] * COMPREHENSIVE METABOLIC PANEL (04/16/2022 2:02 PM CDT) [facility] Glucose 98 70 - 105 mg/dL 04/16/2022 2:32 PM CDT [facility] Sodium 139 136 - 145 mmol/L 04/16/2022 2:32 PM CDT [facility] Potassium 3.9 3.5 - 5.1 mmol/L 04/16/2022 2:32 PM CDT [facility] Chloride 107 98 - 107 mmol/L 04/16/2022 2:32 PM CDT [facility] CO2 21 20 - 28 mmol/L 04/16/2022 2:32 PM CDT [facility] Calcium 9.4 8.4 - 10.4 mg/dL 04/16/2022 2:32 PM CDT [facility] Anion Gap 11 8 - 18 mmol/L 04/16/2022 2:32 PM CDT [facility] BUN 11 7 - 18.7 mg/dL 04/16/2022 2:32 PM CDT [facility] Creatinine 0.82 0.57 - 1.11 mg/dL 04/16/2022 2:32 PM CDT [facility] Alkaline Phosphatase 104 100 - 390 U/L 04/16/2022 2:32 PM CDT [facility] ALT 11 0 - 61 U/L 04/16/2022 2:32 PM CDT [facility] AST 19 5 - 34 U/L 04/16/2022 2:32 PM CDT [facility] Protein Total 7.3 6.4 - 8.3 gm/dL 04/16/2022 2:32 PM CDT [facility] Albumin 4.3 3.4 - 5.0 gm/dL [...] Costa PA-C LAB - CHEMISTRY SALIMA MOORE [facility] [address] [place] [address] * EKG 12-LEAD (04/16/2022 1:59 PM CDT) Ventricular Rate 79 BPM [facility] Atrial Rate 79 BPM [facility] P-R Interval 104 ms [facility] QRS Duration ms 74 ms [facility] Q-T Interval ms 376 ms [facility] QTC Calculation (Bezet) 431 ms [facility] Calculated P Jasper 27 degrees [facility] Calculated R Jasper 54 degrees [facility] Calculated T Jasper 22 degrees [facility] Interpretation EKG When compared with ECG of 21-DEC-2014 11:10,the significant change is the development of nonspecific T wave changes. ??Normal sinus rhythm persists. Confirmed by MD Veronica Jamie ([id number]) on 04/17/2022 1:28:05 PM [facility] 04/16/2022 1:59 PM CDT 04/17/2022 1:28 PM CDT Zakia Costa PA-C ECG ORDERABLES [facility] documented in this encounter Visit Diagnoses Diagnosis Syncope and collapse Seizure-like activity (HCC) Other convulsions Neck pain Cervicalgia documented in this encounter Active and Recently Administered Medications Times are shown in CDT. Scheduled Medication Order 04/14/2022 04/15/2022 04/16/2022 ondansetron (Zofran) injection 4 mg 4 mg, Intravenous, NOW, 1 dose, On Thu04/16/22 at 1530, Administer over 2 to 5 minutes. 1530 (Due) documented in this encounter Care Teams Manufacturing Sales Representative Relationship Specialty Start Date End Date Va Olivo MD PCP - General Pediatrics 12/08/17 documented as of this encounter
--- OUTSIDE RECORDS SUMMARY | 2024-07-18 03:59 | XMS_ITS | Encounter Summary ---
Author Organization [facility] Address [address] [place] [address] Care Team Providers Care Freight Flow Sales Leader Name Role Phone Va Olivo MD Primary Care Provider Encounter Details Date Type Department Care Team (Latest Contact Info) Description 12/01/2022 Travel Social History Tobacco Use Types Packs/Day [...] filedocumented in this encounter Care Teams Freight Flow Sales Leader Relationship Specialty Start Date End Date Va Olivo MD PCP - General Pediatrics 12/08/17 documented as of this encounter
--- OUTSIDE RECORDS SUMMARY | 2024-07-18 03:59 | XMS_ITS | Encounter Summary ---
Author Organization [facility] Address [address] [place] [address] Care Team Providers Care Senior Credit Analyst Name Role Phone [facility] [place] Primary Care Prov ider Encounter Details Date Type Department Care Team (Latest Contact Info) Description 02/17/2017 12:45 PM CDT - 02/17/2017 11:59 PM CDT Hospital Encounter [facility] [address] [place] [address] Kaci Cheatham, YARN WORKER-SUTURE GAUGER [id number] [facility] [address] [place] [address] Discharge Disposition: Home or Self [...] Refills Start Date End Date albuterol HFA (PROVENTIL;VENTOLIN;PRO AIR) 108 (90 BASE) MCG/ACT inhalerIndications:Hist ory of asthma Inhale 2 Puffs by mouth every 4 hours as needed for Wheezing or Cough Always use spacer with inhaler for best results. 2 Inhaler 2 02/01/2016 02/18/2017 Cholecalciferol 1000 UNITS Take 1,000 Each by mouth once daily 30 Tab 3 03/02/2017 02/17/2019 documented as of this encounter Progress Notes * Kaci Cheatham APRN-CNP - 02/17/2017 11:59 PM CDT Vit D level low, script sent to pharmacy. Please schedule follow up in 3 months. documented in this encounter Plan of Treatment Not on file documented as of this encounter Procedures Procedure Name Priority Date/Time Associated Diagnosis Comments VITAMIN D 25-HYDROXY Routine 02/17/2017 12:45 PM CDT Encounter for routine and child vision and hearing testing FERRITIN Routine 02/17/2017 12:45 PM CDT Encounter for routine and child vision and hearing testing documented in this encounter Results * FERRITIN (02/17/2017 12:45 PM CDT) Ferritin 40 10 - 291 ng/mL 02/17/2017 1:05 PM CDT [facility] Blood BLOOD SPECIMEN / Unknown Venipuncture / Unknown 02/17/2017 12:45 PM CDT 02/17/2017 12:45 PM CDT K[facility] PR[facility] - CHEMISTRY OR DERABLES [facility] [address] [place] [address] * (ABNORMAL) VITAMIN D (25-HYDROXY) (02/17/2017 12:45 PM CDT) Vitamin D, 25 Hydroxy 9.59(L) 30 - 100 ng/mL 02/17/2017 5:00 PM CDT [facility] Blood BLOOD SPECIMEN / Unknown Venipuncture / Unknown 02/17/2017 12:45 PM CDT 02/17/2017 12:45 PM CDT Narrative [facility] - 02/17/2017 5:00 PM CDT Vitamin D Status: ?Deficiency ? <20 ? ng/mL ?Insufficiency ?? 20-30 ??ng/mL ?Sufficiency ? 30-100 ng/mL ?Toxicity ? >100 ?ng/mL Kaci Cheatham YARN WORKER-SUTURE GAUGER LAB - CHEMISTRY OR DERABLES Performing Organization Address [facility] Co de Phone Number [facility] [address] [place] [address] documented in this encounter Visit Diagnoses Diagnosis Encounter for routine infant and child vision and hearing testing Routine or child health check documented in this encounter Care Teams Senior Credit Analyst Relationship Specialty Start Date End Date [facility] [place] [id number] [address] PCP - General 02/06/10 12/07/17 documented as of this encounter
--- OUTSIDE RECORDS SUMMARY | 2024-07-18 03:59 | XMS_ITS | Encounter Summary ---
Author Organization [facility] Address [address] [place] [address] Care Team Providers Care Group Sales Manager Name Role Phone Va Olivo MD Primary Care Provider [phone] Reason for Visit * Reason Onset Date Comments MEDICATION REFILL 02/21/2019 Encounter Details Date Type Department Care Team (Late st Contact Info) Description 02/21/[address] [facility] [address] , [address] [place] [address] Va Olivo MD [address] [phone] [place] [address] MEDICATION REFILL Social History Tobacco Use Types Packs/Day Years Used Date Smoking Tobacco: Never Assessed Sex and Gender Information Value Date Recorded Sex Assigned at Not on file Gender Identity Not on file Sexual Orientation Not on file documented as of this encounter Plan of Treatment Not on file documented as of this encounter Visit Diagnoses Diagnosis Mild persistent asthma without complication (HCC) Unspecified asthma documented in this encounter Care Teams Group Sales Manager Relationship Specialty Start Date End Date Va Olivo MD PCP - General Pediatrics 12/08/17 documented as of this encounter
--- OUTSIDE RECORDS SUMMARY | 2024-07-18 03:59 | XMS_ITS | Encounter Summary ---
Author Organization [facility] Address [address] [place] [address] Care Team Providers Care Black Oxide Operator Name Role Phone Va Olivo MD Primary Care Provider [phone] Encounter Details Date Type Department Care Team (Late st Contact Info) Description 04/29/2022 Orders Only [facility] [address] , [address] [place] [address] Va Olivo MD [address] [facility] [phone] [place] [address] Mild intermittent asthma without complication (HCC) Social History Tobacco Use Types Packs/Day Years [...] asthma documented in this encounter Care Teams Black Oxide Operator Relationship Specialty Start Date End Date Va Olivo MD PCP - General Pediatrics 12/08/17 documented as of this encounter
--- OUTSIDE RECORDS SUMMARY | 2024-07-18 03:59 | XMS_ITS | Encounter Summary ---
Author Organization [facility] Address [address] [place] [address] Care Team Providers Care Steward/Stewardess Banquet Name Role Phone Va Olivo MD Primary Care Provider [phone] Reason for Visit * Reason Onset Date Comments MEDICATION REFILL 04/14/2022 Encounter Details Date Type Department Care Team (Late st Contact Info) Description 04/14/2022 Telephone [facility] [address] , [address] [place] [address] Va Olivo MD [address] [facility] [phone] [place] [address] MEDICATION REFILL Social History Tobacco [...] encounter Miscellaneous Notes * Telephone Encounter - Umesh Hernandez - 04/14/2022 2:54 PM CDT Mom wanted to see if patient can get inhaler refill. Please advise Last wcc 11/29/21 documented in this encounter Plan of Treatment Not on file documented as of this encounter Goals Goal Patient Goal Type Associated Problems Recent Progress Patient-Stated? Author Yearly PCP visit Lifestyle Aster Willard, RN Note: Come into office for yearly wcc. Take recommended medication(s) Lifestyle No Aster Garnica, RN documented as of this encounter Visit Diagnoses Not on filedocumented in this encounter Care Teams Steward/Stewardess Banquet Relationship Specialty Start Date End Date Va Olivo MD PCP - General Pediatrics 12/08/17 documented as of this encounter
--- OUTSIDE RECORDS SUMMARY | 2024-07-18 03:59 | XMS_ITS | Encounter Summary ---
Author Organization [facility] Address [address] [address] Care Team Providers Care Bow Stapler Name Role Phone Va Olivo MD Primary Care Provider [phone] Susan Castañeda RN Unavailable Unavailabl e Encounter Details Date Type Department Care Team (Late st Contact Info) Description 11/17/2019 Patient Outreach [facility] [address] , [address] [place] [address] Susan Castañeda, RN Social History Tobacco Use Types Packs/Day Years Used Date Smoking Tobacco: Never Assessed Sex and Gender Information Value Date Recorded Sex Assigned at Not on file Gender Identity Not on file Sexual Orientation Not on file documented as of this encounter Progress Notes * Susan Castañeda, RN - 11/17/2019 9:51 AM CDT Received notification from [place] Bello , patient is enrolled in the [facility] program. Welcome letter mailed to the home. [facility] brochures, handouts on Decreasing Sugary Drinks, Inhaler Mistakes and our magnet will be mailed when available. documented in this encounter Plan of Treatment Not on file documented as of this encounter Visit Diagnoses Not on filedocumented in this encounter Care Teams Bow Stapler Relationship Specialty Start Date End Date Va Olivo MD PCP - General Pediatrics 12/08/17 Susan Castañeda, RN Registered Nurse Care Management 11/04/19 02/01/20 documented as of this encounter
--- OUTSIDE RECORDS SUMMARY | 2024-07-18 03:59 | XMS_ITS | Encounter Summary ---
Author Organization [facility] Address [address] [place] [address] Care Team Providers Care Ramp Supervisor Name Role Phone Va Olivo MD Primary Care Provider [phone] Susan Castañeda RN Unavailable Unavailabl e Encounter Details Date Type Department Care Team (Late st Contact Info) Description 12/23/2019 Patient Outreach [facility] [address] , [address] [place] [address] Susan Castañeda, RN Social History Tobacco Use Types Packs/Day Years Used Date Smoking Tobacco: Never Assessed Sex and Gender Information Value Date Recorded Sex Assigned at Not on file Gender Identity Not on file Sexual Orientation Not on file documented as of this encounter Progress Notes * Susan Castañeda, RN - 12/23/2019 9:13 AM CDT Primary Care Health Home: Patient Outreach + Patient chart reviewed per [facility] protocol [facility] diagnosis:asthma . Contact type:phone call . Condition check and education:I called to speak to mom regarding Greyson's enrollment in [facility]. The only number we have for mom answers as a business. I did not leave a message.. Reviewed Medication: Cyber Access reviewed Current Outpatient Medications Medication Sig ??? albuterol HFA (PROAIR HFA) 108 (90 Base) MCG/ACT inhaler INHALE 2 PUFFS BY MOUTH EVERY 4 HOURS NEEDED FOR WHEEZING OR COUGH; USE WITH SPACER ??? fluticasone hfa 110 (FLOVENT HFA 110) 110 MCG/ACT inhaler Inhale 2 puffs by mouth 2 times daily ??? Spacer/Aero-Holding Chambers (AEROCHAMBER PLUS BHARTI-VU W/MASK) USE DIRECTED No current facility-administered medications for this visit. Followed by (specialty clinics): none [facility]:02-17-19 . Future appointments/Follow-up: No future appointments. Susan Castañeda plate washer [facility] Nurse [facility] documented in this encounter Plan of Treatment Not on file documented as of this encounter Visit Diagnoses Not on filedocumented in this encounter Care Teams Ramp Supervisor Relationship Specialty Start Date End Date Va Olivo MD PCP - General Pediatrics 12/08/17 Susan Castañeda, RN Registered Nurse Care Management 11/04/19 02/01/20 documented as of this encounter
--- OUTSIDE RECORDS SUMMARY | 2024-07-18 03:59 | XMS_ITS | Encounter Summary ---
Author Organization [facility] Address [address] [place] [address] Care Team Providers Care Surveillance Dual Rate Officer Name Role Phone Va Olivo MD Primary Care Provider [phone] Reason for Visit * Reason Comments Sports Physical Encounter Details Date Type Department Care Team (Latest Contact Info) Description 02/17/2019 8:15 AM CDT - 02/17/2019 11:59 PM CDT Hospital Encounter [facility] [address] , [address] [place] [address] Va Olivo MD [address] [place] [address] [phone] [place] [address] Discharge Disposition: Home or Self Care Social History Tobacco Use Types Packs/Day Years Used Date Smoking Tobacco: Never Assessed Sex and Gender Information Value Date Recorded Sex Assigned at Not on file Gender Identity Not on file Sexual Orientation Not on file documented as of this encounter Last Filed Vital Signs Vital Sign Reading Time Taken Comments Blood Pressure 110/69 02/17/2019 8:41 AM CDT Pulse 67 02/17/2019 8:41 AM CDT Temperature 36.7 ??C (98 ??F) 02/17/2019 8:41 AM CDT Respiratory Rate - - Oxygen Saturation - - Inhaled Oxygen Concentration - - Weight 48.7 kg (107 lb 6 oz) 02/17/2019 8:41 AM CDT Height 158.1 cm (5' 2.25 ) 02/17/2019 8:41 AM CD T Body Mass Index 19.48 02/17/2019 8:41 AM CDT Body Mass Index Percentile 49.76% 02/17/2019 8:4 1 AM CDT Growth Chart: [facility] (Girls, 2- 20 Years) documented in this encounter Discharge Instructions * Patient Instructions* Va Olivo MD - 02/17/2019 8:16 AM CDT Images from the original note were not included. YOUR GROWING CHILD: ELEVEN to FOURTEEN YEARS Child???s Name: RahatProprietárioDireto Today???s Date: 02/17/2019 Wt Readings from Last 2 Encounters: 09/23/18 48.3 kg (106 lb 8 oz) (47 %, Z= -0.08)* 12/08/17 44.1 kg (97 lb 4.8 oz) (41 %, Z= -0.24)* * Growth percentiles are based on [facility] 2-20 Years data. Ht Readings from Last 2 Encounters: 09/23/18 1.549 m (5' 1 ) (22 %, Z= -0.79)* 12/08/17 1.524 m (5') (23 %, Z= -0.75)* * Growth percentiles are based on [facility] 2-20 Years data. If you need to reach a psych therapist after normal business hours, please call our After Hours number at Poison Control: IMMUNIZATIONS Your child may receive vaccines today. Please see our current immunization schedule for details around this age. AGE of YOUR CHILD IMMUNIZATIONS 10 YEARS Menactra#1- (Meningococcus)- bacteria- causes deadly blood infections, limb amputation, deafness & meningitis Tdap- (Tetanus, diphtheria, pertussis)- every 10 years HPV- Human Papilloma Virus- cause of cancer of cervix, penis,throat, and genital warts (2 or 3 shotseries) 16 YEARS Menactra (Meningococcal) #2 Yearly Influenza vaccine HPV vaccine is doses; 2nd dose is in 6-12 months after first dose. NOTE: If 1st dose is given after 15th birthday, you need to get 3 shots! DEVELOPMENT Girls: In early adolescence most girls have a growth spurt, accompanied by pubertal changes such aschanges in fat distribution to a more womanly shape and development (or further development) of breasts, underarm hair, pubic hair, acne, and menstrual cycles. Boys: At this age, most boys are beginning puberty, with testicular growth, underarm and pubic hairdevelopment, voice changes, and acne. A growth spurt may occur now or later. With all of these physical as well as emotional changes, boys and girls at this age have an increased need for privacy. Parents should provide information about and discuss with their child the physical and emotional changes that occur with puberty. Encourage your teenager to talk to you about their feelings, concerns, and questions, and make them feel comfortable when they do. Also teach your chi ld the importance of delaying sexual behavior. The adolescent???s peer group continues to be very important to him/her. Regularly talk with your child about avoiding cigarettes, alcohol, drugs, and inhalants. Also discuss how to deal with peer pressure. It is important to support and enhance [...] especially if there are concerns or questions. Encourage your child to engage in physical activity 60 minutes a day and limit nonacademic screen time to less than 2 hours a day. This is also a good age for increasing your child???s responsibilities by allowing your child to share in (or continuing to share in) supervisor chemical. Also increase awareness about community issues and needs. Continue to teach good hygiene and make [...] food, and soda available at home. DISCIPLINE While your adolescent is developing physically and mentally, he/she still does not have the experience and judgment of an adult. Continue to be actively involved in your child???s life, providing loving parenting, appropriate limits, and respect for your maturing child. Parents must continue consistent, loving discipline so the child will know what behavior is expected of him/her. Teach respect for authority, how to resolve conflicts, and how to handle anger appropriately. Explain and establish consequences for unacceptable behavior to your child and enforce these consequences. Most importantly, be a good role model! documented in this encounter Medications at Time of Discharge Medication Sig Dispensed Refills Start Date End Date albuterol HFA (PROAIR HFA) 108 (90 Base) MCG/ACT inhaler INHALE 2 PUFFS BY MOUTH EVERY 4 HOURS NEEDED FOR WHEEZING OR COUGH; USE WITH SPACER 17 g 3 02/17/2019 11/05/2020 beclomethasone HFA (QVAR REDIHALER) 80 MCG/ACT inhalerIndications:Mild persistent asthma without complication (HCC) Inhale 1 puff by mouth 2 times daily 1 Inhaler 02/17/2019 02/21/2019 Spacer/Aero-Holding Chambers (AEROCHAMBER PLUS BHARTI-VU W/MASK) USE DIRECTED 2 Each 02/18/2017 11/05/2020 documented as of this encounter Progress Notes * Va Olivo MD - 02/17/2019 8:16 AM CDT Images from the original note were not included. 13 year old [facility] Interval History: Jarad Kevin is a 13 year old female who is accompanied to today's visit by mom for a 13 year old checkup Parental/Patient Concerns: want to restart steroid inhaler, having regular symptoms. Also needs sports physical Recent visits to Hospital / ER/ Urgent Care: Yes for psych issues, now seeing counselor Current Medications: Current Outpatient Prescriptions Medication Sig Dispense Refill ??? albuterol HFA (PROAIR HFA) 108 (90 Base) MCG/ACT inhaler INHALE 2 PUFFS BY MOUTH EVERY 4 HOURS NEEDED FOR WHEEZING OR COUGH; USE WITH SPACER 17 g 3 ??? beclomethasone HFA (QVAR REDIHALER) 80 MCG/ACT inhaler Inhale 1 puff by mouth 2 times daily 1 Inhaler 0 ??? Spacer/Aero-Holding Chambers (AEROCHAMBER PLUS BHARTI-VU W/MASK) USE DIRECTED 2 Each 0 No current facility-administered medications for this encounter. Allergies: To Medications: NONE/ SEE BELOW No Known Allergies PAST MEDICAL HISTORY / ONGOING MEDICAL PROBLEMS: Patient Active Problem List: History of asthma History of syncope Mild persistent asthma without complication TB Exposure Risk: living with someone who has been: -living on the street, homeless or half-way -recently released from a care home, jail, or fdc -known to have tuberculosis, AIDS or is immunocompromised -comes from or has visited an area known to have tuberculosis -abuses drugs or is an IV drug user -is a migrant frog or oyster farmworker -or has had a positive PPD or TB test No Family History: Reviewed and non-contributory Social History: Lives with mom, step dad, sibs , Father is involved Smokers Inside or Outside House: No If YES, then I discussed cessation, benefits to wallet AND health, setting example for children. SCHOOL: Grade: 9 Grades: average Screen for Depression: Patient having any problems with depressive symtoms Yes Seeing counselor HIGH RISK BEHAVIORS: - Cigarettes: no - Alcohol: no - Drugs: no - Friends smoking / Drinking / Drugs: no - Sexually active friends: no Discussed abstinence and safe sex Menstrual History: Female Yes If yes, then Menarche age at 10 years of age LMP: 2 wks ago (0=now) Every 30 (about) Days Lasting 5 Days LIVING WITH TEEN Sleepin hours - through the night - own [...] regular dentist Hearing and Vision: Hearing Screening 125Hz 250Hz 500Hz 1000Hz 2000Hz 3000Hz 4000Hz 6000Hz 8000Hz Right ear: 15 15 10 10 Left ear: 15 10 10 10 Visual Acuity Screening Right eye Left eye Both eyes Without correction: With correction: 20/20 20/20 20/20 Hearing: Parental perception of hearing is normal, Examined with otoscope- yes Passed Hearing screening today- Yes Vision: Parental/child perception of vision is normal Normal pupillary response /red reflex / tracking / ocular movement Passed vision screening today- Yes Developmental Milestones: Social / Communication: MINIMAL - Follows rules at school - Follows rules at home - Best Friend Eric (parent knows best friend Yes) Fine / Gross Motor: Level of activity- Active- Likes track and volleyball PHYSICAL EXAM: Vitals: Patient Vitals for the past 24 hrs: BP Temp Temp src Pulse Height Weight 02/17/19 0841 110/69 98 ??F (36.7 ??C) Oral 67 1.581 m (5' 2.25 ) 48.7 kg (107 lb 6 oz) Height: 33 %ile (Z= -0.43) based on CDC 2-20 Years [id number] data using vitals from 02/17/2019. Weight: 43 %ile (Z= -0.17) based on CDC 2-20 Years [id number] data using vitals from 02/17/2019. BMI: 50 %ile (Z= -0.01) based on CDC 2-20 Years BMI-for-age data using vitals from 02/17/2019. General Appearance: Alert, active Skin: No rash or abnormal bruising Head/Neck: [...] Female Genitalia Normal external female genitalia Breast-Lucio- III Pubic Hair- Lucio- III Trunk and Spine: Grossly intact Straight NO Scoliois Extremities: Moving all extremitites well Normal gait and strength Reflexes: Normal tone Good and equal patellar reflexes RESULTS: No results found for this or any previous visit (from the past 72 hour(s)). ASSESSMENT / EDUCATION / PLAN: Well check -normal exam except as noted. Growth normal. Development normal ICD-10-CM 1. Encounter for well child visit at 13 years of age Z00.129 2. Mild persistent asthma without complication J45.30 beclomethasone HFA (QVAR REDIHALER) 80 MCG/ACT inhaler 3. Sports physical Z02.5 - Well Child Check- Normal 13 year old - Anticipatory Guidance Given - no smoking - pool safety / swimming - smoke detector - safest is in the back seat - guns in house...safety discussed PARENTS: KNOW YOUR CHILD'S BEST FRIEND AND PARENTS - Immunizations: UTD - Feeding / Nutrition: -milk 16-24 oz /day - water for thirst - limit juice/sugary drinks ORDERS: Orders Placed This Encounter ??? albuterol HFA (PROAIR HFA) 108 (90 Base) MCG/ACT inhaler Sig: INHALE 2 PUFFS BY MOUTH EVERY 4 HOURS NEEDED FOR WHEEZING OR COUGH; USE WITH SPACER Dispense: 17 g Refill: 3 ??? beclomethasone HFA (QVAR REDIHALER) 80 MCG/ACT inhaler Sig: Inhale 1 puff by mouth 2 times daily Dispense: 1 Inhaler Refill: 0 Active Orders There are no active orders. FOLLOW UP AT: 14 year well child check up, sooner for illnesses / questions Patient Instructions YOUR GROWING CHILD: ELEVEN to FOURTEEN YEARS Child???s Name: [employer] Today???s Date: 02/17/2019 Wt Readings from Last 2 Encounters: 09/23/18 48.3 kg (106 lb 8 oz) (47 %, Z= -0.08)* 12/08/17 44.1 kg (97 lb 4.8 oz) (41 %, Z= -0.24)* * Growth percentiles are based on [facility] 2-20 Years data. Ht Readings from Last 2 Encounters: 09/23/18 1.549 m (5' 1 ) (22 %, Z= -0.79)* 12/08/17 1.524 m (5') (23 %, Z= -0.75)* * Growth percentiles are based on [facility] 2-20 Years data. If you need to reach a psych therapist after normal business hours, please call our After Hours number at Poison Control: IMMUNIZATIONS Your child may receive vaccines today. Please see our current immunization schedule for details around this age. AGE of YOUR CHILD IMMUNIZATIONS 11 YEARS Menactra#1- (Meningococcus)- bacteria- causes deadly blood infections, limb amputation, deafness & meningitis Tdap- (Tetanus, diphtheria, pertussis)- every 10 years HPV- Human Papilloma Virus- cause of cancer of cervix, penis,throat, and genital warts (2 or 3 shotseries) 16 YEARS Menactra (Meningococcal) #2 Yearly Influenza vaccine HPV vaccine is doses; 2nd dose is in 6-12 months after first dose. NOTE: If 1st dose is given after 15th birthday, you need to get 3 shots! DEVELOPMENT Girls: In early adolescence most girls have a growth spurt, accompanied by pubertal changes such aschanges in fat distribution to a more womanly shape and development (or further development) of breasts, underarm hair, pubic hair, acne, and menstrual cycles. Boys: At this age, most boys are beginning puberty, with testicular growth, underarm and pubic hairdevelopment, voice changes, and acne. A growth spurt may occur now or later. With all of these physical as well as emotional changes, boys and girls at this age have an increased need for privacy. Parents should provide information about and discuss with their child the physical and emotional changes that occur with puberty. Encourage your teenager to talk to you about their feelings, concerns, and questions, and make them feel comfortable when they do. Also teach your chi ld the importance of delaying sexual behavior. The adolescent???s peer group continues to be very important to him/her. Regularly talk with your child about avoiding cigarettes, alcohol, drugs, and inhalants. Also discuss how to deal with peer pressure. It is important to support and enhance [...] especially if there are concerns or questions. Encourage your child to engage in physical activity 60 minutes a day and limit nonacademic screen time to less than 2 hours a day. This is also a good age for increasing your child???s responsibilities by allowing your child to share in (or continuing to share in) supervisor chemical. Also increase awareness about community issues and needs. Continue to teach good hygiene and make [...] food, and soda available at home. DISCIPLINE While your adolescent is developing physically and mentally, he/she still does not have the experience and judgment of an adult. Continue to be actively involved in your child???s life, providing loving parenting, appropriate limits, and respect for your maturing child. Parents must continue consistent, loving discipline so the child will know what behavior is expected of him/her. Teach respect for authority, how to resolve conflicts, and how to handle anger appropriately. Explain and establish consequences for unacceptable behavior to your child and enforce these consequences. Most importantly, be a good role model! documented in this encounter Plan of Treatment Not on file documented as of this encounter Visit Diagnoses Diagnosis Encounter for well child visit at 13 years of age- Primary Mild persistent asthma without complication (HCC) Unspecified asthma Sports physical Other general medical examination for administrative purposes documented in this encounter Care Teams Surveillance Dual Rate Officer Relationship Specialty Start Date End Date Va Olivo MD PCP - General Pediatrics 12/08/17 documented as of this encounter
--- OUTSIDE RECORDS SUMMARY | 2024-07-18 03:59 | XMS_ITS | Encounter Summary ---
Author Organization [facility] Address [address] [place] [address] Care Team Providers Care Material Coordinator Name Role Phone Va Olivo MD Primary Care Provider [phone] Reason for Visit * Reason Onset Date Comments MEDICATION REFILL 09/09/2022 Encounter Details Date Type Department Care Team (Late st Contact Info) Description 09/09/2022 Refill [facility] [address] , [address] [place] [address] Va Olivo MD [address] [facility] [phone] [place] [address] MEDICATION REFILL Social History Tobacco [...] on filedocumented in this encounter Care Teams Material Coordinator Relationship Specialty Start Date End Date Va Olivo MD PCP - General Pediatrics 12/08/17 documented as of this encounter
--- OUTSIDE RECORDS SUMMARY | 2024-07-18 03:59 | XMS_ITS | Encounter Summary ---
Author Organization [facility] Address [address] [facility] [place] [address] Care Team Providers Care Navigation Officer Name Role Phone Va Olivo MD Primary Care Provider [phone] Aster Garnica RN Unavailable Unavailable Encounter Details Date Type Department Care Team (Late st Contact Info) Description 02/02/[address] [facility] [address] , [address] [place] [address] Aster Garnica RN Social History Tobacco Use Types Packs/Day Years Used Date Smoking Tobacco: Never Assessed Sex and Gender Information Value Date Recorded Sex Assigned at Not on file Gender Identity Not on file Sexual Orientation Not on file documented as of this encounter Progress Notes * Aster Garnica RN - 02/02/2020 12:22 PM CDT Primary Care Health Home: Patient Outreach + Patient chart reviewed per [facility] protocol [facility] diagnosis: asthma Contact type: outgoing call to Nathaly payne Condition check and education: RN spoke to mom. Introduced myself and explained [facility] program to mom. Informed mom pt due for [facility], offered to schedule appt. Mom declined. Mom would like to opt out of program. Patient discharged from the [facility] program, paperwork sent to [facility] , await reply. Reviewed Medication: Cyber Access reviewed. Current Outpatient Medications Medication Sig ??? albuterol [...] this visit. Followed by (specialty clinics): none [facility] last WCC: 02/17/2019 Future appointments/Follow-up: No future appointments. TORRES Caruso, RN [facility] [place] Primary [facility] Nurse Child Psychiatrist documented in this encounter Plan of Treatment [...] on filedocumented in this encounter Care Teams Navigation Officer Relationship Specialty Start Date End Date Va Olivo MD PCP - General Pediatrics 12/08/17 Aster Garnica, RN Registered Nurse Care Management 02/02/20 02/02/20 documented as of this encounter
--- OUTSIDE RECORDS SUMMARY | 2024-07-18 03:59 | XMS_ITS | Encounter Summary ---
Author Organization [facility] Address [address] [facility] [facility] [place] [address] Care Team Providers Care Mortgage Loan Counselor Name Role Phone [facility] Primary Care [facility] ider Reason for Visit * Reason Onset Date Comments MEDICATION REFILL 03/30/2017 Encounter Details Date Type Department Care Team (Late st Contact Info) Description 03/30/2017 Refill [facility] [address], [address] [place] [address] [place] [address] [address] MEDICATION REFILL Social History Tobacco Use Types Packs/Day Years Used Date Smoking Tobacco: Never Assessed Sex and Gender Information Value Date Recorded Sex Assigned at Not on file Gender Identity Not on file Sexual Orientation Not on file documented as of this encounter Miscellaneous Notes * Telephone Encounter - Karen Jerome - 03/30/2017 8:25 AM CDT Last OV 02/17/17 documented in this encounter Plan of Treatment Not on file documented as of this encounter Visit Diagnoses Not on filedocumented in this encounter Care Teams Mortgage Loan Counselor Relationship Specialty Start Date End Date [facility] [id number] [place], [place] [id number] PCP - General 02/06/10 12/07/17 documented as of this encounter
--- OUTSIDE RECORDS SUMMARY | 2024-07-18 03:59 | XMS_ITS | Encounter Summary ---
Author Organization [facility] Address [address] [address] Care Team Providers Care Cruise Staff Member Name Role Phone Va Olivo MD Primary Care Provider [phone] Encounter Details Date Type Department Care Team (Late st Contact Info) Description 04/17/2022 1:23 PM CDT - 04/17/2022 1:28 PM CDT Hospital Encounter [facility] at [address] [address] Dora Aden MD [address] [place] [address] Social History Tobacco Use Types Packs/Day Years [...] PM CDT documented as of this encounter Medications at [...] 04/15/2022 04/29/2022 documented as of this encounter Plan of Treatment Not on file documented as of this encounter Goals Goal Patient Goal Type Associated Problems Recent Progress Patient-Stated? Author Yearly PCP visit Lifestyle No Aster Garnica RN Note: Come into office for yearly wcc. Take recommended medication(s) Lifestyle No Aster Garnica RN documented as of this encounter Visit Diagnoses Diagnosis History of syncope Personal history of other specified diseases documented in this encounter Care Teams Cruise Staff Member Relationship Specialty Start Date End Date Va Olivo MD PCP - General Pediatrics 12/08/17 documented as of this encounter
--- OUTSIDE RECORDS SUMMARY | 2024-07-18 04:00 | XMS_ITS | Encounter Summary ---
Author Organization [facility] Address [address] [address] Care Team Providers Care Arcgis Developer Name Role Phone [facility] Primary Care Prov ider Reason for Visit * Reason Comments Well Child Check Encounter Details Date Type Department Care Team (Latest Contact Info) Description 02/17/2017 10:00 AM CDT - 02/17/2017 12:44 PM T Hospital Encounter [facility] [address], [address] [place] [address] Kaci Cheatham, FORREST-VENKATESH [id number] [place] [address] Discharge Disposition: Home or Self Care Social History Tobacco Use Types Packs/Day Years Used Date Smoking Tobacco: Never Assessed Sex and Gender Information Value Date Recorded Sex Assigned at Not on file Gender Identity Not on file Sexual Orientation Not on file documented as of this encounter Last Filed Vital Signs Vital Sign Reading Time Taken Comments Blood Pressure 105/63 02/17/2017 10:09 AM CDT Pulse 85 02/17/2017 10:09 AM CDT Temperature 36.8 ??C (98.3 ??F) 02/17/2017 10:09 AM C DT Respiratory Rate 20 02/17/2017 10:09 AM CDT Oxygen Saturation - - Inhaled Oxygen Concentration - - Weight 37.7 kg (83 lb 2 oz) 02/17/2017 10:09 AM CDT Height 148 cm (4' 10.27 ) 02/17/2017 10:09 AM CD T Body Mass Index 17.21 02/17/2017 10:09 AM CDT Body Mass Index Percentile 33.71% 02/17/2017 10: 09 AM CDT Growth Chart: CDC (Girls, 2- 20 Years) documented in this encounter Discharge Instructions * Patient Instructions* Kaci Cheatham, PERFORMANCE IMPROVEMENT COORDINATOR-CUFF SETTER - 02/17/2017 11:36 AM CDT Images from the original note were not included. YOUR GROWING CHILD: ELEVEN to FOURTEEN YEARS Child???s Name: [employer] Today???s Date: 02/17/2017 Wt Readings from Last 1 Encounters: 02/17/17 37.7 kg (83 lb 2 oz) (25 %, Z= -0.67)* * Growth percentiles are based on [facility] 2-20 Years data. Ht Readings from Last 1 Encounters: 02/17/17 1.48 m (4' 10.27 ) (24 %, Z= -0.71)* * Growth percentiles are based on [facility] 2-20 Years data. Lab results: We will only call you if the results are abnormal Poison Control: IMMUNIZATIONS Your child may receive vaccines today. Please see our current immunization schedule for details around this age. AGE of YOUR CHILD IMMUNIZATIONS 10 YEARS Menactra (Meningococcal) Tdap Gardasil (HPV) 16 YEARS Menactra (Meningococcal) Yearly Influenza vaccine HPV vaccine is 3 doses; 2nd dose is 1-2 months after first dose and 3rd dose is 6 months after the first dose DEVELOPMENT Girls: In early adolescence most girls [...] share in (or continuing to share in) arborer. Also increase awareness about community issues and [...] your child does not drink milk, provide othercalcium-rich foods such as calcium-fortified orange juice, yogurt, [...] Notes * Kaci Cheatham APRN-CNP - 02/17/2017 10:51 AM CDT I. Interval History / Parent's Concerns Jarad Kevin is a 11 y.o. female who is accompanied to today's visit by father for 11 year well check. Parent concerns: none Child concerns: none Nutrition: Appetite- picky; Diet dislikes most fruits and vegetables Dairy:only with cereal Sleep: No significant fatigue, gets about 8-9 Activity: Normal Stool - normal, regular Review of Symptoms: Recent Illnesses: none Past Medical History: Shots reviewed. Patient Active Problem List Diagnosis ??? Gestation Period, 35-36 Weeks ??? GERD (gastroesophageal reflux disease) ??? Failure to attend appointment ??? History of asthma ??? History of syncope Family History: noncontributory Lipid screening: No risk factors for familial hyperlipidemia. TB screen negative Social History: School: Doing well in school. Patient high risk behaviors: None Smoking: No exposure Pets: 1 dog Physical Exam BP 105/63 (BP SITE: LEFT ARM, BP POSITION: SITTING, BP CUFF SIZE: Child) Pulse 85 Temp 98.3 ??F (Oral) Resp 20 Ht 1.48 m (4' 10.27 ) Wt 37.7 kg (83 lb 2 oz) BMI 17.21 kg/m2 25 %ile (Z= -0.67) based on CDC 2-20 Years [id number] data using vitals from 02/17/2017. 24 %ile (Z= -0.71) based on CDC 2-20 Years [id number] data using vitals from 02/17/2017. Body mass index is 17.21 kg/(m^2)., Height: 148 cm (4' 10.27 ) Wt Readings from Last 3 Encounters: 02/17/17 37.7 kg (83 lb 2 oz) (25 %, Z= -0.67)* 02/01/16 32.3 kg (71 lb 3.2 oz) (18 %, Z= -0.90)* 12/21/14 28.4 kg (62 lb 9.6 oz) (19 %, Z= -0.89)* * Growth percentiles are based on CDC 2-20 Years data. General: alert, well appearing, and in no distress. HEENT: Normocephalic: PERRLA, EOMI, +red reflex bilat, pt wears glasses : TM's wnl : nasal passagesclear NECK: supple, no masses, no lymphadenopathy RESP: clear to auscultation bilaterally CV: RRR, normal S1/S2, no murmurs, clicks, or rubs. ABD: soft, nontender, no masses, no hepatosplenomegaly MS: spine straight, FROM all joints SKIN: no rashes or lesions ART OBJECTS REPAIRER: nl tone, symmetrical limbs, no gross deficits Genitourinary: Normal external female genitalia Lucio Stage: Pubic Hair - III Lucio III Development Peers appropriate, Follows rules at school,No Changes in behavior or mood Hearing Parental perception of hearing is normal, passed screening today Vision Parental/child perception of vision is normal, passed screen today Sees vision provider regularly per report? Yes Hearing Screening 125Hz 250Hz 500Hz 1000Hz 2000Hz 3000Hz 4000Hz 6000Hz 8000Hz Right ear: Pass Pass Pass Pass Left ear: Pass Pass Pass Pass Visual Acuity Screening Right eye Left eye Both eyes Without correction: With correction: 20/20 20/20 20/20 X. Dental Discussed teeth brushing. Teeth development and oral hygiene: fair. Sees dental provider regularly per report? Yes ASSESSMENT: ICD-10-CM 1. Encounter for routine infant and child vision and hearing testing Z00.129 HEARING SCREEN VISUAL ACUITY SCREENING HEARING SCREEN VISUAL ACUITY SCREENING VITAMIN D (25-HYDROXY) FERRITIN 2. Need for vaccination Z23 ninevalent HPV (GARDASIL 9) injection 0.5 mL 3. Normal growth and development for age Z78.9 Well check- normal exam except as noted. Normal growth/devlopment. PLAN: Orders Placed This Encounter ??? ninevalent HPV (GARDASIL 9) injection 0.5 mL 1. Vaccine counseling: Vaccine questions/concerns addressed. Shots updated today as needed. 2. Anticipatory Guidance Discussed the following topics with parents/child: Exercise/Physical activity; Peer relations; School performance; Hobbies; Need for privacy; Body image; Discipline; Television; Sports injuries; Chores; Bicycle safety/helmet; Seatbelts/Airbags; Vehicular accidents; Alcohol; Drugs; Smoking Pool/Water safety; Sex education; Nutrition: 3 balanced meals, Fat content, Iron, Calcium 4. Forms completed: School physical Follow up at next scheduled well child check- 12 year well check. documented in this encounter Plan of Treatment Not on file documented as of this encounter Results * FERRITIN (02/17/2017 12:45 PM CDT) Ferritin 40 10 - 291 ng/mL 02/17/2017 1:05 PM CDT [facility] Blood BLOOD SPECIMEN / Unknown Venipuncture / Unknown 02/17/2017 12:45 PM CDT 02/17/2017 12:45 PM CDT Kaci PRASAD LAB - CHEMISTRY OR DERABLES [facility] [address] [place] [address] * (ABNORMAL) VITAMIN D (25-HYDROXY) (02/17/2017 12:45 PM CDT) Vitamin D, 25 Hydroxy 9.59(L) 30 - 100 ng/mL 02/17/2017 5:00 PM CDT [facility] Blood BLOOD SPECIMEN / Unknown Venipuncture / Unknown 02/17/2017 12:45 PM CDT 02/17/2017 12:45 PM CDT Narrative [facility] - 02/17/2017 5:00 PM CDT Vitamin D Status: ?Deficiency ? <20 ? ng/mL ?Insufficiency ?? 20-30 ??ng/mL ?Sufficiency ? 30-100 ng/mL ?Toxicity ? >100 ?ng/mL Kaci Cheatham APRN-CUFF SETTER LAB - CHEMISTRY OR DERABLES Performing Organization Address [facility] Co de Phone Number [facility] [address] [place], [place] [phone] documented in this encounter Visit Diagnoses Diagnosis Encounter for routine and child vision and hearing testing- Primary Routine infant or child health check Need for vaccination Need for prophylactic vaccination and inoculation against unspecified single disease Normal growth and development for age Encounter for examination of ears and hearing without abnormal findings Encounter for examination of eyes and vision without abnormal findings Encounter for routine child health examination without abnormal findings Routine or child health check documented in this encounter Care Teams Arcgis Developer Relationship Specialty Start Date End Date [facility] [id number] [address] PCP - General 02/06/10 12/07/17 documented as of this encounter
--- OUTSIDE RECORDS SUMMARY | 2024-07-18 04:00 | XMS_ITS | Encounter Summary ---
Author Organization [facility] Address [address] [facility] [place] [address] Care Team Providers Care Software Analyst Name Role Phone [facility] Primary Care Prov ider Reason for Referral * Procedure - Closed Specialty Diagnoses / Procedures Referred By Julia lemus Referred To Contact Cardiology Diagnoses History of syncope Procedures EKG 12-LEAD Rika Zaragoza, FORREST-SMALL PRODUCTS I ASSEMBLER [id number] [facility] [address] [address] Referral ID Status Reason Start Date Expiration Date Visits Re quested Visits Authorized [id number] Closed 12/21/2014 06/19/2015 1 1 Encounter Details Date Type Department Care Team (Latest Contact Info) Description 12/21/2014 10:34 AM CDT - 12/21/2014 10:35 AM CDT Hospital Encounter [facility] [address] [place] [address] Rika Zaragoza, FURNACE PROCESS PLANT OPERATOR-SMALL PRODUCTS I ASSEMBLER [id number] [place] [address] [place] [phone] Discharge Disposition: Home or Self Care Social [...] HFA (PROVENTIL;VENTOLIN;PRO AIR) 108 (90 BASE) MCG/ACT inhalerIndications:Asth ma (HCC) Inhale 2 Puffs by mouth every 4 hours as needed. 2 Inhaler 1 12/14/2013 02/01/2016 albuterol HFA (PROVENTIL;VENTOLIN;PRO AIR) 108 (90 BASE) MCG/ACT inhalerIndications:Hist ory of asthma Inhale 2 Puffs by mouth every 4 hours as needed for Wheezing or Cough Always use spacer with inhaler for best results. 1 Inhaler 0 12/21/2014 02/01/2016 hydrocortisone (HYTONE) 1 % cream Apply to affected area 2 times daily. 30 0 02/13/2010 02/01/2016 documented as of this encounter Plan of Treatment Not on file documented as of this encounter Procedures Procedure Name Priority Date/Time Associated Diagnosis Comments EKG 12-LEAD Routine 12/21/2014 11:10 AM CDT History of syncope documented in this encounter Results * EKG 12-LEAD (12/21/2014 11:10 AM CDT) Ventricular Rate 62 BPM [facility] Atrial Rate 62 BPM [facility] P-R Interval 106 ms [facility] QRS Duration ms 74 ms [facility] Q-T Interval ms 378 ms [facility] QTC Calculation (Bezet) 383 ms [facility] Calculated P [place] 25 degrees [facility] Calculated R [place] 57 degrees [facility] Calculated T [place] 36 degrees [facility] Interpretation EKG * Pediatric ECG Analysis * Normal sinus rhythm Normal ECG No previous ECGs available Confirmed by MD Darryl, Jhony ([id number]) on 12/21/2014 3:52:14 PM [facility] 12/21/2014 11:1 0 AM CDT 12/21/2014 3:52 PM CDT Rika Zaragoza FURNACE PROCESS PLANT OPERATOR-SMALL [employer] I ASSEMBLER ECG ORDERABLES [facility] documented in this encounter Visit Diagnoses Diagnosis History of syncope Personal history of other specified diseases documented in this encounter Care Teams Software Analyst Relationship Specialty Start Date End Date [facility] [id number] [address] PCP - General 02/06/10 12/07/17 documented as of this encounter
--- OUTSIDE RECORDS SUMMARY | 2024-07-18 04:00 | XMS_ITS | Encounter Summary ---
Author Organization [facility] Address [address] [place] [address] Care Team Providers Care Beauty Operator Name Role Phone [facility] Primary Care Prov ider Reason for Visit * Reason Comments Well Child Check Encounter Details Date Type Department Care Team (Latest Contact Info) Description 12/14/2013 2:19 PM CDT - 12/14/2013 11:59 PM CDT Hospital Encounter [facility] [address], [address] [place] [address] Bob Goodwin MD RETIRED Discharge Disposition: Home or Self Care Social History Tobacco Use Types Packs/Day Years Used Date Smoking Tobacco: Never Assessed Sex and Gender Information Value Date Recorded Sex Assigned at Not on file Gender Identity Not on file Sexual Orientation Not on file documented as of this encounter Last Filed Vital Signs Vital Sign Reading Time Taken Comments Blood Pressure 86/62 12/14/2013 2:31 PM CDT Pulse 110 12/14/2013 2:31 PM CDT Temperature 37.3 ??C (99.1 ??F) 12/14/2013 2:31 PM CD T Respiratory Rate 20 12/14/2013 2:31 PM CDT Oxygen Saturation - - Inhaled Oxygen Concentration - - Weight 25.5 kg (56 lb 3.2 oz) 12/14/2013 2:31 PM CDT Height 127 cm (4' 2 ) 12/14/2013 2:31 PM CDT Body Mass Index 15.81 12/14/2013 2:31 PM CDT Body Mass Index Percentile 39.47% 12/14/2013 2:3 1 PM CDT Growth Chart: [facility] (Girls, 2- 20 Years) documented in this encounter Medications at Time of Discharge Medication Sig Dispensed Refills Start Date End Date albuterol HFA (PROVENTIL;VENTOLIN;PRO AIR) 108 (90 BASE) MCG/ACT inhalerIndications:Asth ma (HCC) Inhale 2 Puffs by mouth every 4 hours as needed. 2 Inhaler 1 12/14/2013 02/01/2016 hydrocortisone (HYTONE) 1 % cream Apply to affected area 2 times daily. 30 0 02/13/2010 02/01/2016 documented as of this encounter Progress Notes * Bob Goodwin MD - 12/14/2013 3:00 PM CDT SUBJECTIVE: Jarad Kevin is a 8 y.o. female who presents to the office today with mother for routine health care examination. PMH: essentially negative FH: noncontributory SH: to fourth grade, was in gifted this year ROS: No unusual headaches or abdominal pain. No cough, wheezing, shortness of breath, bowel or bladder problems. Diet is good. Eats well. Drinks milk 8-12 ounces a day Sleeps well Speech good Refractive error x 1 year Uses albuterol, rarely, last time 2 weeks ago Voids and stools well Wears seat belt OBJECTIVE: GENERAL: WDWN female EYES: PERRLA, EOMI, EARS: TM's jimenez VISION and HEARING: Normal. NOSE: nasal passages clear NECK: supple, no masses, no lymphadenopathy RESP: clear to auscultation bilaterally CV: RRR, normal S1/S2, no murmurs, clicks, or rubs. ABD: soft, nontender, no masses, no hepatosplenomegaly : normal female exam MS: spine straight, FROM all joints SKIN: no rashes or lesions ASSESSMENT: 1. WCC (well child check) 2. Examination of eyes and vision VISUAL ACUITY SCREENING, VISUAL ACUITY SCREENING 3. Other examination of ears and hearing HEARING SCREEN, HEARING SCREEN 4. Asthma 5. Refraction error Good growth and development Mild asthma, intermittent PLAN: Counseling regarding the following: bicycle safety, dental care, diet, firearm and poison safety, seat belts and sleep. Follow up 1 year documented in this encounter Plan of Treatment Not on file documented as of this encounter Visit Diagnoses Diagnosis Examination of eyes and vision Other examination of ears and hearing Asthma (HCC) Refraction error Unspecified disorder of refraction and accommodation documented in this encounter Care Teams Beauty Operator Relationship Specialty Start Date End Date [facility] [id number] [address] PCP - General 02/06/10 12/07/17 documented as of this encounter
--- OUTSIDE RECORDS SUMMARY | 2024-07-18 04:00 | XMS_ITS | Encounter Summary ---
Author Organization [facility] Address [address] [facility] [place] [address] Care Team Providers Care Robotic Weld Technician Name Role Phone [facility] Primary Care Prov ider Reason for Visit * Reason Comments Well Child Check Encounter Details Date Type Department Care Team (Latest Contact Info) Description 02/01/2016 2:00 PM CDT - 02/01/2016 11:59 PM T Hospital Encounter [facility] [id number], [address] [place] [address] [place] [id number] [facility] [address] [address] [place] [address] Discharge Disposition: Home or Self Care Social History Tobacco Use Types Packs/Day Years Used Date Smoking Tobacco: Never Assessed Sex and Gender Information Value Date Recorded Sex Assigned at Not on file Gender Identity Not on file Sexual Orientation Not on file documented as of this encounter Last Filed Vital Signs Vital Sign Reading Time Taken Comments Blood Pressure 106/60 02/01/2016 2:35 PM CDT Pulse 69 02/01/2016 2:35 PM CDT Temperature 36.2 ??C (97.2 ??F) 02/01/2016 2:35 PM CD T Respiratory Rate 17 02/01/2016 2:35 PM CDT Oxygen Saturation - - Inhaled Oxygen Concentration - - Weight 32.3 kg (71 lb 3.2 oz) 02/01/2016 2:35 PM CDT Height 137 cm (4' 5.94 ) 02/01/2016 2:35 PM CDT Body Mass Index 17.21 02/01/2016 2:35 PM CDT Body Mass Index Percentile 43.81% 02/01/2016 2:3 5 PM CDT Growth Chart: [facility] (Girls, 2- 20 Years) documented in this encounter Discharge Instructions * Patient Instructions* Shirin Hong MD - 02/01/2016 2:50 PM CDT Well Child Visit at 11 to 14 Years WHAT YOU NEED TO KNOW: A well child visit is when your child sees a healthcare provider to prevent health problems. It is a different type of visit than when your child sees a healthcare provider because he is sick. Well child visits are used to track your child's growth and development. It is also a time for you to ask questions and to get information on how to keep your child safe. Write down your questions so you remember to ask them. Your child should have regular well child visits from to 17 years. DISCHARGE INSTRUCTIONS: Where to take your child for well child visits: It is best to find a medical home for your child. Amedical home is a doctor's office or clinic where your child sees the same healthcare providers every time. A medical home will also keep your child's health records. The healthcare providers will get to know your child and your family so they can give him the best care. They will also make sure hereceives vaccines on the recommended immunization schedule to protect him from diseases. What happens during a well child visit at 11 to 14 years: Ages 11 to 14 is also called early adolescence. Well child visits may change so your healthcare provider talks with your child directly. Yourchild's healthcare provider may do the following: ?? Chart your child's weight and height ?? Check your child's vision, hearing, and blood pressure ?? Ask how much sleep your child gets each night and how well he is sleeping ?? Check your child's teeth or tell you to take him to a dentist, and ask about your child's brushing and flossing routine ?? Talk to you about your child's physical activity, and time limits of less than 2 hours a day forTV, computers, or video games ?? Check for problems with your child's spine ?? Talk to your child about seat belts, bicycle and sports helmets, and water safety, such as not swimming alone ?? Talk to your child about school, friendships, peer pressure, and bullying ?? Ask how often your child reads each day and if he is having problems with any schoolwork or subjects ?? Look for signs of any emotional or mental problems in your child, such as depression ?? Talk about puberty and the changes your child will go through while becoming an adult ?? Check your child's skin for acne or changes in birthmarks, and talk to him about wearing sunscreen to prevent skin cancer ?? Do breast and pelvic exams for girls and testicular exams for boys (when appropriate) ?? Talk to your child about the health effects of smoking, drinking alcohol, and taking drugs ?? Give your child any vaccines he needs (Tdap, HPV, and meningococcal), and any catch-up doses of previous vaccines Milestones of development your child may reach by 11 to 14 years: Each child develops at his own pace. Your child might have already reached the following milestones, or he may reach them later: ?? Breast development (girls), testicle and penis enlargement (boys), and armpit or pubic hair ?? Menstruation (monthly periods) in girls ?? Skin changes, such as oily skin and acne ?? Not understanding that actions may have negative effects ?? Focus on appearance and need to be accepted by others his own age What you need to know about your child's next well child visit: Your child's healthcare provider will tell you when to bring your child in again. The next well child visit is usually at 15 to 17 years. Your child may need catch-up doses of the hepatitis B, hepatitis A, Tdap, MMR, chickenpox, or HPVvaccine. He may need a catch-up or booster dose of the meningococcal vaccine. Remember to take yourchild in for a yearly flu vaccine. Changes that may happen before the next well child visit: Your child's physical development will happen rapidly in the next few years. Talk to your child's healthcare provider about what to expect, and ask questions if you have any concerns. Your child will continue to take steps toward independence before his next well child visit. He may want to spend more time alone or with friends. ?? 2015 [place]. Information is for End User's use only and may not be sold, redistributed or otherwise used for commercial purposes. All illustrations and images included in CareNotes?? are the copyrighted property of [employer]. or [employer]. The above information is an food aide only. It is not intended as medical advice for individual conditions or treatments. Talk to your doctor, nurse or pharmacist before following any medical regimen to see if it is safe and effective for you. documented in this encounter Medications at Time of Discharge Medication Sig Dispensed Refills Start Date End Date albuterol HFA (PROVENTIL;VENTOLIN;PRO AIR) 108 (90 BASE) MCG/ACT inhalerIndications:Hist ory of asthma Inhale 2 Puffs by mouth every 4 hours as needed for Wheezing or Cough Always use spacer with inhaler for best results. 2 Inhaler 2 02/01/2016 02/18/2017 documented as of this encounter Progress Notes * Shirin Hong MD - 02/01/2016 2:50 PM CDT [employer] Preparticipation Sports/School Examination Journie Union 2005 02/01/2016 female Grade: 6 th School: Unknown Sports: Basketball No Known Allergies Patient Active Problem List Diagnosis ??? Gestation Period, 35-36 Weeks ??? GERD (gastroesophageal reflux disease) ??? Failure to attend appointment ??? History of asthma ??? History of syncope Review of Systems: General ROS: Occasional wheezing, uses Albuterol MDI less than once a month, needs refill. Parent concerns: none Patient concerns: none Nutrition: Appetite- good; Diet healthy Dairy: 2 servings Sleep: No significant fatigue. Stool - normal Had episode syncope last school year, referred to Cardiology and EEG, dad not sure if done. No further episodes. No chest pain, dizziness, passing out with exercise. Can schedule as ordered. HISTORY General Questions: 1. Has a doctor ever denied or restricted your participation in sports for any reason? No 2. Do you have any ongoing medical conditions? Mild, well controlled, occasional Albuterol. 3. Have you ever spent the night in the hospital? No 4. Have you ever had surgery?No Heart Health Question About You: 5. Have you ever passed out or nearly passed out DURING or AFTER exercise? No 6. Have you ever had discomfort, pain, tightness, or pressure in your chest during exercise? No 7. Does your heart ever race or skip beats (irregular beats) during exercise? No 8. Has a doctor ever told you that you have heart problems? No 9. Has a doctor ever ordered a test for your heart? No 10. Do you get lightheaded or feel more short of breath than expected during exercise? No 11. Have you ever had an unexplained seizure? 12. Do you get more tired or short of breath more quickly than your friends during exercise? No Heart Health Questions About Your Family: 13. Has a family member or relative of heart problems or had an unexpected or unexplained sudden before age 50 (including drowning, unexplained car accident, or SIDS? No 14. Does anyone in your family have hypertrophic cardiomyopathy, Marfan syndrome, arrhythmogenic right ventricular cardiomyopathy, long QT syndrome, short QT syndrome, Brugada syndrome or catecholamine polymorphic ventricular tachycardia? No 15. Does anyone in your family have a heart problem, pacemaker, or implanted defibrillator? No 16. Has anyone in your family had unexplained fainting, unexplained seizures, or near drowning? No Bone and Joint Questions: 17. Have you ever had an injury to a bone, muscle, ligament or tendon that caused you to miss a practice or a game? No 18. Have you ever had any broken or fractured bones or dislocated joints? No 19. Have you ever had an injury that required x-rays, MRI, CT scan, injections, therapy, a brace, or crutches? No 20. Have you ever had a stress fracture? No 21. Have you ever been told that you have, or have you had an x-ray for neck instability or atlantoaxial instability (Down syndrome or dwarfism)? No 22. Do you use a brace, orthotics, or other assistive device? No 23. Do you have a bone, muscle, or joint injury that bothers you? No 24. Do any of your joints become painful, swollen, feel warm, or look red? No 25. Do you have any history of juvenile arthritis or connective tissue diseases? No Medical Questions: 26. Do you cough, wheeze, or have difficulty during or after exercise? No 27. Have you ever used an inhaler or taken asthma medicine? Yes 28. Is there anyone in your family who has asthma? No 29. Were you born without or are you missing a kidney, an eye, a testicle, spleen, or any other organ? No 30. Do you have groin pain or a painful bulge or hernia in the groin area? No 31. Have you had infectious mononucleosis (mono) within the last month? No 32. Do you have any rashes, pressure sores, or other skin problems? No 33. Have you had a herpes or MRSA skin infection? No 34. Have you ever had a head injury or concussion? No 35. Have you ever had a hit or blow to the head that caused confusion, prolonged headaches, or memory problems? No 36. Do you have a history of a seizure disorder? No 37. Do you have headaches with exercise? No 38. Have you ever had numbness, tingling, or weakness in your arms or legs after being hit or falling? No 39. Have you ever been unable to move your arms or legs after being hit or falling? No 40. Have you ever become ill while exercising in the heat? No 41. Do you get frequent muscle cramps when exercising? No 42. Do you or someone in your family have sickle cell trait or disease? No 43. Have you had any problems with your eyes or vision? Yes, wears glasses 44. Have you had any eye injuries? No 45. Do you wear glasses or contact lenses? No 46. Do you wear protective eyewear such as goggles or a face shield? glasses 47. Do you worry about your weight? No 48. Are you trying to or has anyone recommended that you gain or lose weight? No 49. Are you on a special diet or do you avoid certain types of food? No 50. Have you ever had an eating disorder? No 51. Do you have any concerns that you would like to discuss with the doctor? No Females Only: 52. Have you ever had a menstrual period? No 53. How old were you when you had your first menstrual period? N/A 54. Have you gone more than 3 months without a menstrual cycle? N/A Lab/Immunizations Shots up to date so far. No risk factors for familial hyperlipidemia. Hearing passes (check at least one)Parental perception of hearing is normal and Child's perception of hearing is normal Vision passed (check at least one) Parental/child perception of vision is normal Hearing Screening 125Hz 250Hz 500Hz 1000Hz 2000Hz 4000Hz 8000Hz Right ear: Pass Pass Pass Pass Pass Pass Left ear: Pass Pass Pass Pass Pass Pass Visual Acuity Screening Right eye Left eye Both eyes Without correction: With correction: 20/20 20/20 20/20 Dental Referral for routine preventative dental care every six months Social History: School: No teacher or parent concerns Did well last year Peers: Socializing appropriately with peers. Patient high risk behaviors: None Physical Examination BP 106/60 mmHg Pulse 69 Temp(Src) 97.2 ??F (Oral) Resp 17 Wt 32.296 kg (71 lb 3.2 oz) BMI17.21 kg/m2 12%ile (Z=-1.18) based on CDC 2-20 Years pdbjbwu-qpt-qyy data using vitals from 02/01/2016. 18%ile (Z=-0.90) based on CDC 2-20 Years cmsefl-ndz-soc data using vitals from 02/01/2016. Body mass index is 17.21 kg/(m^2). Height: 137 cm (4' 5.94 ) Wt Readings from Last 3 Encounters: 02/01/16 32.296 kg (71 lb 3.2 oz) (18 %*, Z = -0.90) 12/21/14 28.395 kg (62 lb 9.6 oz) (19 %*, Z = -0.89) 12/14/13 25.492 kg (56 lb 3.2 oz) (21 %*, Z = -0.82) * Growth percentiles are based on CDC 2-20 Years data. General Appearance: Normal unless otherwise noted (No Marfan stigmata - kyphoscoliosis, high archedpalate, pectus excavatum, arachnodactyly, arm span . Height, hyperlaxity, myopia, MVP, aortic insufficiency) Eyes/Ears/Nose/Throat: Normal unless otherwise noted Lymph Nodes:Normal unless otherwise noted; no lymphadenopathy Lungs: Normal unless otherwise noted;chest clear, no wheezing, rales, normal symmetric air entry Heart exam - Normal unless otherwise noted; S1, S2 normal, no murmur, no gallop, rate regular Pulses: femoral and radial pulses are simultaneous Abdomen: Normal unless otherwise noted Genitalia: Normal unless otherwise noted. Lucio Stage: II Skin: Normal unless otherwise noted; no HSV, Tinea or MRSA lesions Neurological: Normal unless otherwise noted;alert, oriented, normal speech, no focal findings or movement disorder noted Musculoskeletal: Neck: normal unless otherwise stated; Full range of motion Back: normal unless otherwise stated; Straight without visible or palpable defects. Shoulder/Arm: normal unless otherwise stated; Full range of motion Elbow/Forearm: normal unless otherwise stated; Full range of motion Hip/Thigh: normal unless otherwise stated; Full range of motion Knee: normal unless otherwise stated; Full range of motion Leg/Ankle: normal unless otherwise stated; Full range of motion Foot/Toes: normal unless otherwise stated; Full range of motion Stance and Gait: normal unless otherwise stated Assessment: ICD-10-CM 1. Well adolescent visit Z00.129 2. Need for vaccination Z23 Tdap (igavumr-tostaevhpy-oyixx pertussis) (BOOSTRIX) (7y+) injection 0.5 mL ninevalent HPV (GARDASIL 9) injection 0.5 mL meningococcal vaccine with DIPHTHERIA (MENACTRA) injection 0.5 mL 3. Encounter for routine and child vision and hearing testing Z00.129 HEARING SCREEN VISUAL ACUITY SCREENING HEARING SCREEN VISUAL ACUITY SCREENING 4. History of asthma Z87.09 albuterol HFA (PROVENTIL;VENTOLIN;PROAIR) 108 (90 BASE) MCG/ACT inhaler Cleared for All Sports without Restrictions Unrestricted participation Yes The above named individual has been cleared for participation in the following sports: Contact collision (football, soccer, wrestling) Yes Limited Contact (baseball, basketball, volleyball) Yes Noncontact strenous (track, field, running, tennis etc.) Yes Noncontact Moderately strenuous ([place], table tennis) Yes Noncontact nonstrenuous (golf, archery, riflery) Yes Recommendations: Orders Placed This Encounter ??? Tdap (xjwkrzj-jrnfbyohhl-lcxmz pertussis) (BOOSTRIX) (7y+) injection 0.5 mL Sig: ??? ninevalent HPV (GARDASIL 9) injection 0.5 mL Sig: ??? meningococcal vaccine with DIPHTHERIA (MENACTRA) injection 0.5 mL Sig: ??? albuterol HFA (PROVENTIL;VENTOLIN;PROAIR) 108 (90 BASE) MCG/ACT inhaler Sig: Inhale 2 Puffs by mouth every 4 hours as needed for Wheezing or Cough Always use spacer with inhaler for best results. Dispense: 2 Inhaler Refill: 2 I have examined the above named student and completed the pre-participation physical evaluation. The athlete does not present apparent clinical contraindications to practice and participate in the sport)s) outlines above. A copy of the physical exam is on record in my office and can be made available to the school at the request of the parents. If conditions arise after the athlete has been cleared for participation, the physician may rescind the clearance until the problem is resolved and the potential consequences are completely explained to the athlete (and parents/guardians). Shirin Hong MD This document has been signed electronically. documented in this encounter Plan of Treatment Not on file documented as of this encounter Visit Diagnoses Diagnosis Well adolescent visit- Primary Routine infant or child health check Need for vaccination Need for prophylactic vaccination and inoculation against unspecified single disease Encounter for routine and child vision and hearing testing Routine infant or child health check History of asthma Personal history of other diseases of respiratory system Examination of ears and hearing Examination of eyes and vision documented in this encounter Care Teams Robotic Weld Technician Relationship Specialty Start Date End Date [facility] [id number] [address] PCP - General 02/06/10 12/07/17 documented as of this encounter
--- OUTSIDE RECORDS SUMMARY | 2024-07-18 04:00 | XMS_ITS | Encounter Summary ---
Author Organization [facility] Address [address] [place] [address] Care Team Providers Care Splicing Machine Operator Automatic Name Role Phone [facility] Primary Care Prov ider Reason for Referral * Specialty Diagnoses / Procedures Referred By Julia lemus Referred To Contact Rika Zaragoza, PLACEMENT SPECIALIST-ENTERPRISE SYSTEMS ENGINEER [id number] [place] [address] Referral ID Status Reason Start Date Expiration Date Visits Re quested Visits Authorized Reason for Visit * Reason Comments Complete Physical Exam 4 yr check . Has beenwell Encounter Details Date Type Department Care Team (Late st Contact Info) Description 02/13/2010 10:00 AM CDT Office Visit [facility] [id number] [place] [address] Rika Zaragoza PLACEMENT SPECIALIST-ENTER[employer] SYSTEMS ENGINEER [id number] [place] [address] WCC (Well Child Check) (Primary Dx); Rash; Decreased Vision Social History Tobacco Use Types Packs/Day Years Used Date Smoking Tobacco: Never Assessed Sex and Gender Information Value Date Recorded Sex Assigned at Not on file Gender Identity Not on file Sexual Orientation Not on file documented as of this encounter Last Filed Vital Signs Vital Sign Reading Time Taken Comments Blood Pressure 98/68 02/13/2010 10:33 AM CDT Pulse - - Temperature 37.2 ??C (99 ??F) 02/13/2010 10: 33 AM CDT Respiratory Rate - - Oxygen Saturation - - Inhaled Oxygen Concentration - - Weight 16.5 kg (36 lb 6.4 oz) 0 10:33 AM CDT Height 108 cm (3' 6.5 ) 02/13/2010 10:3 3 AM CDT Zixdvb-hqg-Pghypz Percentile 17.93% 10/2009 10:33 AM CDT Growth Chart: [facility] (Girls, 2- 20 Years) Body Mass Index 14.17 02/13/2010 10:33 AM CDT Body Mass Index Percentile 19.24% 02/13 10:33 AM CDT Growth Chart: CDC (Girls, 2- 20 Years) documented in this encounter Patient Instructions * Patient Instructions* Rika Zaragoza PNP - 02/13/2010 11:07 AM CDT Greyson rocha complete eye exam. documented in this encounter Progress Notes * Rika Zaragoza PNP - 02/13/2010 10:49 AM CDT Greyson Union 4 y.o. female Is here with mother, father for 4 year old Wellchild visit. Chief Complaint Patient presents with ??? Complete Physical Exam 4 yr check Slight rash on chest few days. No current outpatient prescriptions on file. Interval HIstory: Has been well Diet; Good appetite, 3 servings of a dairy food daily, Limit juice Elimination: Voids normally, Stools ok, Problems?no problems Sleeps: Through night Lives with:parents and brother Childcare/school: Safety: Working smoke detector in home, Rides in booster seat, advised needs to be buckled in5 point restraint till 40 lb Dental: Brushes teeth, Parents aware of need for dental care Development: Speech all understandable Knows 4 colors Counts on fingers Dresses self without help Can hop, Balances on each foot for 3 seconds Physical Exam: Blood pressure 98/68, temperature 99 ??F, temperature source Oral, height 1.08 m (3'6.5 ), weight 16.511 kg (36 lb 6.4 oz). General: Alert, active, well-hydrated speech clear Head: No abnormalities Skin: clear, no rashes Eyes: PERRL, EOMI, Conjunctivae clear, + Red reflex Bilat. Ears: TMs with normal landmarksand lightreflex Nose: clear Mouth: No lesions, teeth in good condition, Throat: Clear, Neck: Supple, no masses Chest: Clear CV: RRR, no murmur, Femoral pulses = Abd: BS+, no HSM, soft, nontender, no masses : Normal female Back: straight Musculoskeletal: Good muscle tone, MAEW Neuro: Normal balance and coordination, intact on gross exam Assessment: No diagnosis found. Plan: No orders of the defined types were placed in this encounter. documented in this encounter Plan of Treatment Scheduled Referrals Name Type Priority Associated Diagnoses Order Schedule AMB REFERRAL TO OPHTHALMOLOGY Outpatient Referral Routine Decreased Vision Ordered: 02/13/2010 documented as of this encounter Visit Diagnoses Diagnosis WCC (well child check)- Primary Routine or child health check Rash Rash and other nonspecific skin eruption Decreased vision Unspecified visual loss documented in this encounter Care Teams Splicing Machine Operator Automatic Relationship Specialty Start Date End Date [facility] [id number] [address] PCP - General 02/06/10 12/07/17 documented as of this encounter
--- OUTSIDE RECORDS SUMMARY | 2024-07-18 04:00 | XMS_ITS | Encounter Summary ---
Author Organization [facility] Address [address] [facility] [place] [address] Care Team Providers Care Animal Maintenance Supervisor Name Role Phone [facility] Primary Care Prov ider Reason for Visit * Reason Onset Date Comments Follow-up 12/22/2014 Encounter Details Date Type Department Care Team (Late st Contact Info) Description 12/22/2014 Telephone [facility] [id number], [address] [place] [address] [facility] [id number] [place] [address] [address] [place] [address] Follow-up Social History Tobacco Use Types Packs/Day Years Used Date Smoking Tobacco: Never Assessed Sex and Gender Information Value Date Recorded Sex Assigned at Not on file Gender Identity Not on file Sexual Orientation Not on file documented as of this encounter Miscellaneous Notes * Telephone Encounter - Rika Zaragoza APRN-VENKATESH - 12/25/2014 2:04 PM CDT Reviewed child's history and exam with Dr. Goodwin who recommends getting an EEG to rule out seizures, adn a cardiology referral to evaluate syncope. Spoke with mom by phone, advised her of need for these 2 appointments, entered orders for EEG adn for cardiology appt in [place], adn sent note to mo with this information. documented in this encounter Plan of Treatment Not on file documented as of this encounter Visit Diagnoses Diagnosis History of syncope- Primary Personal history of other specified diseases documented in this encounter Care Teams Animal Maintenance Supervisor Relationship Specialty Start Date End Date [facility] [address] [place] [address] PCP - General 02/06/10 12/07/17 documented as of this encounter
--- OUTSIDE RECORDS SUMMARY | 2024-07-18 04:00 | XMS_ITS | Encounter Summary ---
Author Organization [facility] Address [address] [place] [address] Care Team Providers Care Silk Conditioner Name Role Phone Hannah Barron MD Primary Care Provider [phone] Encounter Details Date Type Department Care Team (Latest Contact Info) Description 01/24/2009 11:36 AM CDT - 01/24/2009 11:59 PM CDT Hospital Encounter [facility] [address] [place] [address] [place] [id number] [facility] [place] [address] Laboratory Discharge Disposition: Home or Self Care Social [...] Procedure Name Priority Date/Time Associated Diagnosis Comments LEAD BLOOD Routine 01/24/2009 11:50 AM CDT Routine or Child Health Check HGB HCT PANEL Routine 01/24/2009 11:50 AM CDT Routine or Child Health Check documented in this encounter Results * LEAD BLOOD (01/24/2009 11:50 AM CDT) Lead Blood 3 mcg 0 - 14 ug/dl [facility] Specimen Type Venous [facility] BLOOD SPECIMEN / Unknown 01/24/2009 11:50 AM CDT Narrative [facility] - 01/30/2009 9:44 AM CDT 1 Resulting Agency Comment Performed By [facility] ? [address], [address] ? [place] [address] Hannah Barron MD LAB - CHEMISTRY ORDEliza MOORE Performing Organization Address [facility] de Phone Number [facility] [address] [place] [address] * HGB HCT PANEL (01/24/2009 11:50 AM CDT) Hemoglobin 11.9 10.0 - 15.0 gm/dl [facility] Hematocrit 35.4 30.0 - 45.0 % [facility] BLOOD SPECIMEN / Unknown 01/24/2009 11:50 AM CDT Narrative [facility] - 01/24/2009 12:01 PM CDT FAX TO [phone] Hannah Barron MD LAB - HEMATOLOGY ORD ERABLES Performing Organization Address [facility] de Phone Number [facility] [address] [place] [address] documented in this encounter Visit Diagnoses Diagnosis Routine or child health check documented in this encounter Care Teams Silk Conditioner Relationship Specialty [place] [address] [place] [address] PCP - General 01/24/09 02/05/10 documented as of this encounter
--- OUTSIDE RECORDS SUMMARY | 2024-07-18 04:00 | XMS_ITS | Encounter Summary ---
Author Organization [facility] Address [address] [place] [address] Care Team Providers Care Rv Repairer Name Role Phone [facility] Primary Care Prov ider Encounter Details Date Type Department Care Team (Latest Contact Info) Description 12/21/2014 10:36 AM CDT - 12/21/2014 11:59 PM CDT Hospital Encounter [facility] - Laboratory [address] [place] [address] Rika Zaragoza, STUDENT OFFICER-CURTAIN STITCHER [address] [place] [address] [place] [address] Discharge Disposition: Home or Self Care [...] Procedure Name Priority Date/Time Associated Diagnosis Comments CBC W MANUAL DIFFERENTIAL Routine 12/21/2014 10:37 AM CDT History of syncope DIFFERENTIAL MANUAL Routine 12/21/2014 1 0:37 AM CDT History of syncope BASIC METABOLIC PANEL (CALCIUM TOTAL) Routine 12/21/2014 10:37 AM CDT History of syncope TSH Routine 12/21/2014 10:37 AM CDT History of syncope T4 TOTAL Routine 12/21/2014 10:37 AM CDT History of syncope documented in this encounter Results * (ABNORMAL) DIFFERENTIAL MANUAL (12/21/2014 10:37 AM CDT) WBC Auto 3.6(L) 4.5 - 14.5 x10^9/L 12/21/2014 12:10 PM CDT [facility] WBC Corrected 4.5 - 14.5 x10^9/L 12/21/2014 12:10 PM CDT [facility] nRBC /100 WBC 12/21/2014 12:10 PM CDT [facility] Neutrophil % Manual 29 24 - 66 % 12/21/2014 12:10 PM CDT [facility] Lymphocytes % Manual 59 22 - 61 % 12/21/2014 12:10 PM CDT [facility] Monocytes % Manual 6 3 - 15 % 12/21/2014 12:10 PM CDT [facility] Eosinophils % Manual 5 0 - 10 % 12/21/2014 12:10 PM CDT [facility] Basophils % Manual 1 % 12/21/2014 12:10 PM CDT [facility] Cells Counted 100 # cells 12/21/2014 12:10 PM CDT [facility] RBC Morphology Normal 12/21/2014 12:10 PM CDT [facility] WBC Morph Normal 12/21/2014 12:10 PM CDT [facility] Platelet Estimation Normal 12/21/2014 12:10 PM CDT [facility] Blood BLOOD SPECIMEN / Unknown Lab Venipuncture / Unknown 12/21/2014 10:37 AM CDT 12/21/2014 11:11 AM CDT Rika Zaragoza APRN-CURTAIN STITCHER LAB - HEMATOLO GY ORDERABLES Performing Organization Address [facility] de Phone Number [facility] [address] [place] [phone] * T4 TOTAL (12/21/2014 10:37 AM CDT) T4 Total 12.0 4.7 - 13.3 ug/dL 12/21/2014 11:46 AM CDT [facility] Blood BLOOD SPECIMEN / Unknown Lab Venipuncture / Unknown 12/21/2014 10:37 AM CDT 12/21/2014 11:11 AM CDT Rika Zaragoza STUDENT OFFICER-CURTAIN STITCHER LAB - CHEMISTR Y ORDERABLES Performing Organization Address City/[facility] Co de Phone Number [facility] [phone] [place] [phone] * TSH (12/21/2014 10:37 AM CDT) TSH 2.14 0.358 - 3.740 uIU/mL 12/21/2014 11:40 AM CDT [facility] Blood BLOOD SPECIMEN / Unknown Lab Venipuncture / Unknown 12/21/2014 10:37 AM CDT 12/21/2014 11:11 AM CDT Rika Gary Nik LYMANN-CURTAIN STITCHER LAB - CHEMISTR Y ORDERABLES Performing Organization Address City/[facility]/ZIP Co de Phone Number [facility] [address] [place] [address] * (ABNORMAL) CBC W MANUAL DIFFERENTIAL (12/21/2014 10:37 AM CDT) WBC 3.6(L) 4.5 - 14.5 x10^9/L 12/21/2014 11:17 AM CDT [facility] RBC 4.89 4.00 - 5.20 x10^12/L 12/21/2014 11:17 AM CDT [facility] Hemoglobin 12.4 11.5 - 15.5 gm/dL 12/21/2014 11:17 AM CDT [facility] Hematocrit 37.3 35.0 - 45.0 % 12/21/2014 11:17 AM CDT [facility] MCV 76.3(L) 77.0 - 95.0 fl 12/21/2014 11:17 AM CDT [facility] MCH 25.4 25.0 - 33.0 pg 12/21/2014 11:17 AM CDT [facility] MCHC 33.2 31.0 - 37.0 gm/dL 12/21/2014 11:17 AM CDT [facility] RDW-CV 12.2 11.5 - 14.0 % 12/21/2014 11:17 AM CDT [facility] MPV 10.4(H) 6.0 - 9.5 fl 12/21/2014 11:17 AM CDT [facility] Platelet Count 307 100 - 400 x10^9/L 12/21/2014 11:17 AM CDT [facility] Blood BLOOD SPECIMEN / Unknown Lab Venipuncture / Unknown 12/21/2014 10:37 AM CDT 12/21/2014 11:11 AM CDT Rika Gary Nik STUDENT OFFICER-CURTAIN STITCHER LAB - HEMATOLO GY ORDERABLES Performing Organization Address City/[facility]/ZIP Co de Phone Number [facility] [address] [place] [address] * (ABNORMAL) BASIC METABOLIC PANEL (CALCIUM TOTAL) (12/21/2014 10:37 AM CDT) Glucose 71(L) 74 - 106 mg/dL 12/21/2014 11:35 AM CDT [facility] Sodium 140 136 - 145 mmol/L 12/21/2014 11:35 AM CDT [facility] Potassium 3.9 3.5 - 5.1 mmol/L 12/21/2014 11:35 AM CDT [facility] Chloride 106 98 - 107 mmol/L 12/21/2014 11:35 AM CDT [facility] CO2 28 22 - 31 mmol/L 12/21/2014 11:35 AM CDT [facility] Calcium 9.1 8.5 - 10.1 mg/dL 12/21/2014 11:35 AM CDT [facility] Anion Gap 6 5 - 15 mmol/L 12/21/2014 11:35 AM CDT [facility] BUN 12 7 - 21 mg/dL 12/21/2014 11:35 AM CDT [facility] Creatinine 0.34(L) 0.50 - 1.30 mg/dL 12/21/2014 11:35 AM CDT [facility] eGFR by MDRD mL/min/1. 73m2 12/21/2014 11:35 AM T [facility] Comment:eGFR calculations ar e not performed for children under 18 years old. eGFR by MDRD mL/min/1. 73m2 12/21/2014 11:35 AM T [facility] Comment:eGFR calculations ar e not performed for children under 18 years old. Blood BLOOD SPECIMEN / Unknown Lab Venipuncture / Unknown 12/21/2014 10:37 AM CDT 12/21/2014 11:11 AM CDT Rika Zaragoza STUDENT OFFICER-CURTAIN STITCHER LAB - CHEMISTR Y ORDERABLES [facility] [address] [place] [address] documented in this encounter Visit Diagnoses Diagnosis History of syncope Personal history of other specified diseases documented in this encounter Care Teams Rv Repairer Relationship Specialty Start Date End Date [facility] [address] [facility] [place] [address] PCP - General 02/06/10 12/07/17 documented as of this encounter
--- OUTSIDE RECORDS SUMMARY | 2024-07-18 04:00 | XMS_ITS | Encounter Summary ---
Author Organization [facility] Address [address] [place] [address] Care Team Providers Care Cold Press Loader Name Role Phone [facility] Primary Care [facility] ider Reason for Visit * Reason Onset Date Comments Follow-up 12/21/2014 Encounter Details Date Type Department Care Team (Late st Contact Info) Description 12/21/2014 Telephone [facility] [address], [address] [place] [address] Rika Zaragoza APRN-CNP [address] [place] [address] Follow-up Social History Tobacco Use Types Packs/Day Years Used Date Smoking Tobacco: Never Assessed Sex and Gender Information Value Date Recorded Sex Assigned at Not on file Gender Identity Not on file Sexual Orientation Not on file documented as of this encounter Miscellaneous Notes * Telephone Encounter - Rika Zaragoza APRN-CNP - 12/28/2014 9:57 AM CDT See telephone ecounter of December 22. Spoke with mom, and follow up advised with cardiology and EEG. * Telephone Encounter - Rika Zaragoza APRN-CNP - 12/21/2014 4:55 PM CDT Advised mom of normal ECG, essentially normal cbc, bmp, thyroid. Child had a cold 1-2 weeks ago. I will review with Dr. Barnes when in office mon am 6-15 to see what evaluation is needed. Mom says child had several episodes several years ago that were described to her as silent seizures for which she was seen in ER, but no ER record for this is in her Epic chart. documented in this encounter Plan of Treatment Not on file documented as of this encounter Visit Diagnoses Not on filedocumented in this encounter Care Teams Cold Press Loader Relationship Specialty Start Date End Date [facility] [place] [address] [place] [address] PCP - General 02/06/10 12/07/17 documented as of this encounter
--- OUTSIDE RECORDS SUMMARY | 2024-07-18 04:00 | XMS_ITS | Encounter Summary ---
Author Organization [facility] Address [address] [place] [address] Care Team Providers Care Manufacturing Development Engineer Name Role Phone [facility] Primary Care Prov ider Reason for Referral * Procedure - Closed Specialty Diagnoses / Procedures Referred By Julia lemus Referred To Contact Cardiology Diagnoses History of syncope Procedures EKG 12-LEAD Rika Zaragoza, FORREST-ADJUNCT PROFESSOR OF LAW [address] [place] [address] Referral ID Status Reason Start Date Expiration Date Visits Re quested Visits Authorized [id number] Closed 12/21/2014 06/19/2015 1 1 Reason for Visit * Reason Comments Well Child Check 9 year. Has been we ll Syncope fell out on way to nurse's office after not feeling well in gym in winter, Encounter Details Date Type Department Care Team (Latest Contact Info) Description 12/21/2014 8:30 AM CDT - 12/21/2014 10:33 AM CDT Hospital Encounter [facility] [address] [place], [place] [id number] Rika Zaragoza APRN-CNP [id number] [place] [address] Discharge Disposition: Home or Self Care Social History Tobacco Use Types Packs/Day Years Used Date Smoking Tobacco: Never Assessed Sex and Gender Information Value Date Recorded Sex Assigned at Not on file Gender Identity Not on file Sexual Orientation Not on file documented as of this encounter Last Filed Vital Signs Vital Sign Reading Time Taken Comments Blood Pressure 102/63 12/21/2014 9:00 AM CDT Pulse 58 12/21/2014 9:00 AM CDT Temperature 36.8 ??C (98.2 ??F) 12/21/2014 9:00 AM CD T Respiratory Rate 22 12/21/2014 9:00 AM CDT Oxygen Saturation - - Inhaled Oxygen Concentration - - Weight 28.4 kg (62 lb 9.6 oz) 12/21/2014 9:00 AM CDT Height 133.5 cm (4' 4.56 ) 12/21/2014 9:00 AM CD T Body Mass Index 15.93 12/21/2014 9:00 AM CDT Body Mass Index Percentile 32.14% 12/21/2014 9:0 0 AM CDT Growth Chart: [facility] (Girls, 2- 20 Years) documented in this encounter Discharge Instructions * Patient Instructions* Rika Zaragoza APRN-CNP - 12/21/2014 9:01 AM CDT If Journee faints or falls out or has anything you think might be a seizure, go to ER then, so the episode can be evaluated better. BOOKS FOR YOUNG GIRLS Good books to help explain growing up, body changes,healthy habits and self- esteem to young girls: THE CARE AND KEEPING OF YOU 1: THE BODY BOOK FOR YOUNGER GIRLS, By Valerie Tolentino And THE CARE AND KEEPING OF YOU 2; THE BODY BOOK FOR OLDER GIRLS, By Magi Ernandez These books are available in many libraries. Children whose height or weight is above the limit for their car safety seat should ride in the back seat in a belt-positioning booster seat at least until the age of 88 years old, or when the child is 57 inches(4 feet 9 inches)tall and weighs about 80 pounds. The shoulder belt should lie across themiddle of the chest and shoulder, not the neck or face, and the lap belt should lie low across the hips and pelvis, not the abdomen. Children who are old enough and large enough to use the vehicle seat belt alone should always use the Lap and Shoulder seat belts for best protection. All children younger than 13 years old should ride in the back seat with the lap and shoulder belt in place for best protection. A Safety helmet should always be worn for bike-riding or skate-boarding to prevent severe head injuries. documented in this encounter Medications at Time [...] as of this encounter Progress Notes * Rika Zaragoza APRN-CNP - 12/21/2014 8:49 AM CDT Journie Union 9 y.o. female presents with mother, brother today for well child protection specialist. Chief Complaint Patient presents with ??? Well Child Check 9 year. Has been well ??? Syncope fell out on way to nurse's office after not feeling well in gym in winter, Interval History: Had one episode of falling out at school after not feeling well running laps ingym. No report of chest pain then. School nurse gave albuterol MDI., described eyes rolling back. Did not go to ER after that. MOm describes good activity level, good exercise tolerance. No family history of heart problems. Current Outpatient Prescriptions Medication Sig Dispense Refill ??? albuterol HFA (PROVENTIL;VENTOLIN;PROAIR) 108 (90 BASE) MCG/ACT inhaler Inhale 2 Puffs by mouthevery 4 hours as needed. 2 Inhaler 1 ??? hydrocortisone (HYTONE) 1 % cream Apply to affected area 2 times daily. 30 0 No current facility-administered medications for this encounter. Diet: Drinks milk daily. Eats variety of foods. Good appetite. Sleep:ok Elimination:No problems Lives with:Parents and 2 siblings School: Does well in school Activities: track High risk behaviors?none Safety: +wears seat belts, +in-home smoke detectors Dental care: yes, recently Menstrual Hx: Menarche Not yet LMP [facility] 50 [employer] Preparticipation Sports/School Examination [employer] 2004 12/21/2014 female Grade: 5 Sports: track No Known Allergies HISTORY General Questions: 1. Has a doctor ever denied or restricted your participation in sports for any reason? No 2. Do you have any ongoing medical conditions? YES, asthma 3. Have you ever spent the night in the hospital? No 4. Have you ever had surgery? No Heart Health Question About You: 5. Have you ever passed out or nearly passed out DURING or AFTER exercise? YES--see chief complaint 6. Have you ever had discomfort, pain, [...] Have you ever had an unexplained seizure? YES--mom reports chil had what ER called a seizure 2 or 3 times about 2-3 years ago. 12. Do you get more tired or [...] unexplained fainting, unexplained seizures, or near drowning? YES--see chief complaint Bone and Joint Questions: 17. Have you [...] used an inhaler or taken asthma medicine? YES 28. Is there anyone in your family who has asthma? YES 29. Were you born without or are [...] any problems with your eyes or vision? No 44. Have you had any eye injuries? No 45. Do you wear glasses or contact lenses? No 46. Do you wear protective eyewear such as goggles or a face shield? No 47. Do you worry about your weight? [...] Have you ever had a menstrual period? NO 52. How old were you when you had your first menstrual period? 53. Hos many periods have you had in the last 12 months? Physical Examination BP 102/63 mmHg Pulse 58 Temp(Src) 98.2 ??F (Temporal) Resp 22 Wt 28.395 kg (62 lb 9.6 oz) BMI 15.93 kg/m2 Hearing Screening 125Hz 250Hz 500Hz 1000Hz 2000Hz 4000Hz 8000Hz Right ear: Pass Pass Pass Pass Pass Left ear: Pass Pass Pass Pass Pass Visual Acuity Screening Right eye Left eye Both eyes Without correction: With correction: 20/20 20/20 20/20 General Appearance: Normal unless otherwise noted (No [...] Genitalia: Normal unless otherwise noted. Lucio Stage: I Skin: Normal unless otherwise noted; no HSV, Tinea or MRSA lesions Neurological: Normal unless otherwise noted;alert, oriented, normal speech, no focal findings or movement disorder noted Musculoskeletal: Neck: normal unless otherwise stated; Full range of motion Back: normal unless otherwise stated; Straight without visible or palpable defects. Stance and Gait: normal unless otherwise stated Cleared for all sports without restriction with recommendations for further evaluation and treatment for: report of Falling out last winter. (ECG, CBC, BMP. Thyroid tests) Recommendations: I have examined the above named student and completed the pre-participation physical evaluation. The athlete does not present apparent clinical contraindications to practice and participate in the sports outlined above. A copy of the physical exam is on record in my office and can be made availableto the school at the request of the parents. If conditions arise after the athlete has been clearedfor participation, the physician may rescind the clearance until the problem is resolved and the potential consequences are completely explained to the athlete (and parents/guardians). @SIGNATURE@ Rika Zaragoza APRN-ADJUNCT PROFESSOR OF LAW This document has been signed electronically. No exam data present Physical Exam: Blood pressure 102/63, pulse 58, temperature 98.2 ??F, temperature source Temporal, resp. rate 22, height 1.335 m (4' 4.56 ), weight 28.395 kg (62 lb 9.6 oz). 22%ile (Z=-0.77) based on CDC 2-20 Years [id number] data using vitals from 12/21/2014. No weight on file for this encounter. There is no height or weight on file to calculate BMI. No unique date with height and weight on file. General--Alert, active, NAD, poised, talkative Skin--No rash, Well -perfused Head-- NC, Atraumatic Eyes-- PERRL, Red Reflex normal Bilaterally, EOMI Ears--Pinna WNL, Position WNL, Wax incanals bilat, unable to see TM Nose--Nares patent, Septum midline Oropharynx--Palate intact, Uvula midline, Teeth in good condition Neck-- Supple, No masses, No thyromegaly Lungs-- CTA, BS=, No retractions, No stridor Heart-- RRR, No murmur, femoral and radial pulses== Pulses-- Femorals 2+/4=, Abdomen-- Soft, Nontender, +BS, No HSM No masses Back-- Straight spine, Scoliosis screen negative -- Lucio stage ( 1 ) Nl ext female Skeletal-- Moves all extremities well, Normal strength, FROM Neuro--Responds to stimuli, CN 2-12 grossly intact, Normal balance, coordination, and Speech ICD-9-CM 1. WCC (well child check) V20.2 2. History of syncope V15.89 EKG 12-LEAD BASIC METABOLIC PANEL (CALCIUM TOTAL) CBC W MANUAL DIFFERENTIAL TSH T4 TOTAL 3. History of asthma V12.69 albuterol HFA (PROVENTIL;VENTOLIN;PROAIR) 108 (90 BASE) MCG/ACT inhaler Orders Placed This Encounter ??? BASIC METABOLIC PANEL (CALCIUM TOTAL) Standing Status: Future Number of Occurrences: Standing Expiration Date: 12/21/2015 ??? CBC W MANUAL DIFFERENTIAL Standing Status: Future Number of Occurrences: Standing Expiration Date: 12/21/2015 ??? TSH Standing Status: Future Number of Occurrences: Standing Expiration Date: 12/22/2015 ??? T4 TOTAL Standing Status: Future Number of Occurrences: Standing Expiration Date: 12/21/2015 ??? EKG 12-LEAD Standing Status: Future Number of Occurrences: Standing Expiration Date: 12/21/2015 ??? albuterol HFA (PROVENTIL;VENTOLIN;PROAIR) 108 (90 BASE) MCG/ACT inhaler Sig: Inhale 2 Puffs by mouth every 4 hours as needed for Wheezing or Cough Always use spacer with inhaler for best results. Dispense: 1 Inhaler Refill: 0 Discussed history of syncope with DR. Barron. Advised mom child should be seen in ER right away if this recurs. Asthma Action Plan completed. PE form completed. documented in this encounter Plan of Treatment Not on file documented as of this encounter Results * EKG 12-LEAD (12/21/2014 11:10 AM CDT) Ventricular Rate 62 BPM [facility] Atrial Rate 62 BPM [facility] P-R Interval 106 ms [facility] QRS Duration ms 74 ms [facility] Q-T Interval ms 378 ms [facility] QTC Calculation (Bezet) 383 ms [facility] Calculated P [place] 25 degrees [facility] Calculated R [place] 57 degrees [facility] Calculated T [place] 36 degrees [facility] Interpretation EKG * Pediatric ECG Analysis * Normal sinus rhythm Normal ECG No previous ECGs available Confirmed by MD Darryl, Jhony ([id number]) on 12/21/2014 3:52:14 PM [facility]USE 12/21/2014 11:1 0 AM CDT 12/21/2014 3:52 PM CDT [facility] ORDERABLES [facility] * T4 TOTAL (12/21/2014 10:37 AM CDT) T4 Total 12.0 4.7 - 13.3 ug/dL 12/21/2014 11:46 AM CDT [facility] Blood BLOOD SPECIMEN / Unknown Lab Venipuncture / Unknown 12/21/2014 10:37 AM CDT 12/21/2014 11:11 AM CDT [facility] - CHEMISTR Y ORDERABLES [facility] [address] [place] [id number] * TSH (12/21/2014 10:37 AM CDT) TSH 2.14 0.358 - 3.740 uIU/mL 12/21/2014 11:40 AM CDT [facility] Blood BLOOD SPECIMEN / Unknown Lab Venipuncture / Unknown 12/21/2014 10:37 AM CDT 12/21/2014 11:11 AM CDT Rika Zaragoza [facility] - CHEMISTR Y ORDERABLES Performing Organization Address City/[facility]/ZIP Co de Phone Number [facility] [address] [place] [address] * (ABNORMAL) CBC W MANUAL DIFFERENTIAL (12/21/2014 10:37 AM CDT) Pathologist [facility] WBC 3.6(L) 4.5 - 14.5 x10^9/L 12/21/2014 11:17 AM CDT [facility] RBC 4.89 4.00 - 5.20 x10^12/L 12/21/2014 11:17 AM CDT [facility] Hemoglobin 12.4 11.5 - 15.5 gm/dL 12/21/2014 11:17 AM CDT [facility] Hematocrit 37.3 35.0 - 45.0 % 12/21/2014 11:17 AM CDT [facility] MCV 76.3(L) 77.0 - 95.0 fl 12/21/2014 11:17 AM CDT [facility] MCH 25.4 25.0 - 33.0 pg 12/21/2014 11:17 AM CDT [facility] MCHC 33.2 31.0 - 37.0 gm/dL 12/21/2014 11:17 AM CDT [facility] RDW-CV 12.2 11.5 - 14.0 % 12/21/2014 11:17 AM CDT [facility] MPV 10.4(H) 6.0 - 9.5 fl 12/21/2014 11:17 AM CDT [facility] Platelet Count 307 100 - 400 x10^9/L 12/21/2014 11:17 AM CDT [facility] Blood BLOOD SPECIMEN / Unknown Lab Venipuncture / Unknown 12/21/2014 10:37 AM CDT 12/21/2014 11:11 AM CDT Rika Zaragoza [facility] - HEMATOLO GY ORDERABLES Performing Organization Address [facility]/ZIP Co de Phone Number [facility] [address] [place] [address] * (ABNORMAL) BASIC METABOLIC PANEL (CALCIUM TOTAL) (12/21/2014 10:37 AM CDT) Pathologist [facility] Glucose 71(L) 74 - 106 mg/dL 12/21/2014 11:35 AM [facility] Sodium 140 136 - 145 mmol/L 12/21/2014 11:35 AM CDT [facility] Potassium 3.9 3.5 - 5.1 mmol/L 12/21/2014 11:35 AM CDT [facility] Chloride 106 98 - 107 mmol/L 12/21/2014 11:35 AM CDT [facility] CO2 28 22 - 31 mmol/L 12/21/2014 11:35 AM T [facility] Calcium 9.1 8.5 - 10.1 mg/dL 12/21/2014 11:35 AM [facility] Anion Gap 6 5 - 15 mmol/L 12/21/2014 11:35 AM T [facility] BUN 12 7 - 21 mg/dL 12/21/2014 11:35 AM T [facility] Creatinine 0.34(L) 0.50 - 1.30 mg/dL 12/21/2014 11:35 AM T [facility] eGFR by MDRD mL/min/1. 73m2 12/21/2014 11:35 AM [facility] Comment:eGFR calculations ar e not performed for children under 18 years old. eGFR by MDRD mL/min/1. 73m2 12/21/2014 11:35 AM [facility] Comment:eGFR calculations ar e not performed for children under 18 years old. Blood BLOOD SPECIMEN / Unknown Lab Venipuncture / Unknown 12/21/2014 10:37 AM CDT 12/21/2014 11:11 AM T Rika Zaragoza COOLING PIPE INSPECTOR-ADJUNCT PROFESSOR OF LAW LAB - CHEMISTR Y ORDERABLES [facility] [address] [place] [address] documented in this encounter Visit Diagnoses Diagnosis Examination of eyes and vision History of syncope Personal history of other specified diseases History of asthma Personal history of other diseases of respiratory system Other examination of ears and hearing Syncope and collapse Unspecified asthma(493.90) ([facility]) Unspecified asthma documented in this encounter Care Teams Manufacturing Development Engineer Relationship Specialty Start Date End Date [facility] [id number] [place] [address] PCP - General 02/06/10 12/07/17 documented as of this encounter
--- OUTSIDE RECORDS SUMMARY | 2024-07-18 04:00 | XMS_ITS | Encounter Summary ---
Author Organization [facility] Address [address] [place] [address] Care Team Providers Care Paleontological Helper Name Role Phone [facility] Primary Care Prov ider Reason for Visit * Reason Comments Complete Physical Exam 5yr Encounter Details Date Type Department Care Team (Late st Contact Info) Description 05/07/2011 3:45 PM CDT Office Visit [facility] [id number] [place] [id number] [place] [id number] [place] [phone] WCC (well child check) (Primary Dx) Social History Tobacco Use Types Packs/Day Years Used Date Smoking Tobacco: Never Assessed Sex and Gender Information Value Date Recorded Sex Assigned at Not on file Gender Identity Not on file Sexual Orientation Not on file documented as of this encounter Last Filed Vital Signs Vital Sign Reading Time Taken Comments Blood Pressure 98/56 05/07/2011 3:51 PM CDT Pulse - - Temperature - - Respiratory Rate - - Oxygen Saturation - - Inhaled Oxygen Concentration - - Weight 19.1 kg (42 lb) 05/07/2011 3:51 PM CDT Height 114.3 cm (3' 9 ) 05/07/2011 3:51 PM CDT Body Mass Index 14.58 05/07/2011 3:51 PM CDT Body Mass Index Percentile 29.79% 05/07/2011 3:5 1 PM CDT Growth Chart: CDC (Girls, 2- 20 Years) documented in this encounter Progress Notes * Hannah Kumar MD - 05/07/2011 4:27 PM CDT I. Interval History / Parent's Concerns Jarad Kevin is a 5 y.o. female who is accompanied to today's visit by mother for 5 year well check.Parent concerns: none Nutrition: Appetite- good; Diet balanced Eats three meals daily Dairy: Milk 3 glasses milk every day, cheese and yogurt Sleep: Sleeps well, all night Activity: Normal, Active, Plays outside, Normal Output: Urine - normal;Stool - normal Past Medical History: No past medical history on file. Patient Active Problem List Diagnoses ??? Gestation Period, 35-36 Weeks ??? GERD (Gastroesophageal Reflux Disease) Recent Illnesses: none Injuries: No significant accidents to report. Medications: none Family History: No family history on file. Lipid screening: No risk factors for familial hyperlipidemia. Social History: tobacco no pets dog child caregiver private home: Home with family Peer involvement: Socializes well with peers Review of Symptoms: General ROS: negative II. Physical Exam: Alert active child, vital signs stable BP 98/56 Wt 42 lb (19.051 kg) BMI 14.58 kg/m2 22.91% of growth percentile based on wdksdij-evt-gqv. 20.04% of growth percentile based on oqdnzg-rew-ora. Body mass index is 14.58 kg/(m^2). General: alert, well appearing, and in no distress. HEENT: Normocephalic EYES: PERRLA, EOMI, +red reflex bilat EARS: TM's wnl NOSE: nasal passages clear NECK: supple, no masses, no lymphadenopathy RESP: clear to auscultation bilaterally CV: RRR, normal S1/S2, no murmurs, clicks, or rubs. ABD: soft, nontender, no masses, no hepatosplenomegaly MS: spine straight, FROM all joints SKIN: no rashes or lesions PARKING ENFORCEMENT TECHNICIAN: nl tone, symmetrical limbs, no gross deficits, DTRs 1+ Genitourinary: Normal external female genitalia IV. Labs/Immunizations Vaccines administered according to schedule - see orders. V. Lead Screen/TB screen: No risk factors Lead screen is not indicated. . Developmental - Personal-Social and Language Child is able to: Name, age, sex Discuss activities VII. Developmental - Fine Motor / Gross Motor Child is able to: Copies [place]/cross Balances on 1 foot for 3-5 seconds VIII. Hearing Parental perception of hearing is normal Child's perception of hearing is normal IX. Vision Parental/child perception of vision is normal Observation for: Blinking, pupillary response, red reflex/fundus, tracking, ocular movements Objective testing including light reflex/cover test pass School performance good First grade Family history of visual disorders? No Reviewed mandatory vision exam with vision provider before starts kindergarten. X. Dental Discussed teeth brushing Assessed teeth development and oral hygiene; good Sees dental provider regularly per report? Yes Assessment:Well check -normal exam except as noted. Growth normal. Development normal 1. [facility] (well child check) FLU VACCINE =>3YO PRESERVATIVE FREE IM Plan: Orders Placed This Encounter ? ? FLU VACCINE =>2YO PRESERVATIVE FREE IM 1. Vaccine counseling: Vaccine questions/concerns addressed: 2. Age-appropriate anticipatory guidance reviewed as above. 3. Anticipatory Guidance Discussed the following topics with parents: Sleeping problems; Cursing; Stuttering; Discipline/Time out; Hyperactivity; Television/Exercise; Reading to child; Traffic hazards; Water safety/pools; Gun safety; Fire safety; Matches, outbound telemarketing representative safety; Bicycle helmet; Car seat/Airbags;Infections/poisons; Pre-kindergarten; Sun Exposure; Parental smok ing; Smoke detector Feedin meals with snacks, Variety of food, Proper amounts, Obesity 4. Forms completed: none Follow up at next well child check- 6 year well check/ as needed sick visits. documented in this encounter Plan of Treatment Not on file documented as of this encounter Visit Diagnoses Diagnosis WCC (well child check)- Primary Routine infant or child health check documented in this encounter Care Teams Paleontological Helper Relationship Specialty Start Date End Date [facility] [id number] [address] [place] [id number] PCP - General 02/06/10 12/07/17 documented as of this encounter
--- OUTSIDE RECORDS SUMMARY | 2024-07-18 04:01 | XMS_ITS | Continuity of Care Document ---
Author Organization [facility] Address [address] [place] [address] Phone Care Team Providers Care Assessment Nurse Practitioner Name Role Phone Cosme Vail DMD Unavailable Unavailable Medications Medication Instructions Dosage Effective Dates (start - stop) Status Comments PreviDent 5000 Booster Plus 1.1 % dental paste apply pea size amount to toothbrush and brush for two minutes twice a day. Do not eat, drink, or rinse for 30 minutes - No Longer Active Procedures Procedure Date Resin Composite, 3 Surfaces, Posterior J Treatment Plan Completed Pt To Be Place On Recall Dental Bitewings Radiographic, Four Imag es Periapical Radiographic, first Image Feb Pulp Vitality Test Limit Oral Evaluation- problem focused A Periodic Oral Evaluation-Established Pt Exempt From Sealant Measure Caries Risk Assess & Doc High Risk Dental Prophylaxis Adult Topical Fluoride Varnish Oral Hygiene/Nutritional Counseling Oral hygiene instruction Treatment Plan Completed Pt To Be Place On Recall Exempt From Sealant Measure Caries Risk Assess & Doc Mod Risk Periodic Oral Evaluation-Established Pt Caries Risk Assess & Doc High Risk Apr- Dental Prophylaxis Adult Oral Hygiene/Nutritional Counseling Topical Fluoride Varnish Treatment Plan Completed Pt To Be Place On Recall Periodic Oral Evaluation-Established Pt Dental sealant per tooth Dental sealant per tooth Dental sealant per tooth Dental sealant per tooth Dental sealant per tooth Dental sealant per tooth Dental sealant per tooth Dental sealant per tooth Treatment Plan Completed Pt To Be Place On Recall Caries Risk Assess & Doc High Risk Dental Panoramic Radiographic Image Dental Bitewings Radiographic, Four Imag es Dental Prophylaxis Adult Topical Fluoride Varnish Oral hygiene instruction Comprehensive Oral Evaluation-New/Est Pt Advance Directives Directive Yes / No Effective Date File Name No Information Encounters Encounter Description Practice Location Reason(s) For Visit Diagnoses Date Provider Providers Copied on Encounter [facility] , [address], [place], [place], [address], tel:[phone] [facility] Dental caries, unspecified 4 Genna Aguiar. [address], [place], [place], [address] , . tel:[phone] Referring Provider: Cosme Vail, [address], [place], [address] . tel:[phone] [facility] , [address], [place], [place], [address], tel:[phone] [facility] Encounter for dental exam and cleaning w abnormal findings 3 Keiry Dao. [address], [place], [place], [address] . tel:[phone] [facility] , [address], [place], [place], [address], tel:[phone] [facility] Encounter for dental exam and cleaning w abnormal findingsChronic gingivitis, plaque induced 3 Keiry Dao. [address], [place], [place], [address] . tel: [phone] [facility] , [address], [place], [place], [address], tel:[phone] [facility] [place] Encounter for dental exam and cleaning w abnormal findings Maurice-3 0 2 Amandeep Randall. [address], [place], [place], [address] . tel: [phone] [facility] , [address], [place], [place], [address], [place] tel:[phone] [facility] Encounter for dental exam and cleaning w abnormal findings 1 Amandeep Randall. [address], [place], [place], [address] . tel: [phone] [facility] , [address], [place], [place], [address], tel:[phone] [facility] [place] Encounter for dental exam and cleaning w abnormal findings 1 Amandeep Randall. [address], [place], [place], [address] . tel: [phone] [facility] , [address], [place], [place], [address], tel:[phone] [facility] Encounter for dental exam and cleaning w abnormal findings 1 Amandeep Bridges [address], [place], [place], [address] . tel:[phone] Family History Family Member Type Diagnosis Age At Onset No Information Payers Payer name Insurance type Covered alliance party ID Joantanna yvette(s) Maryam [facility] Community Plan MCAID CI [id number] Social History Type Description Quantity Date Captured Comments Sex Female Smoking Status No Information Chief Complaint And Reason For Visit No Information Reason For Referral Reason For Referral No Information History Of Present Illness Encounter Date Complaint History Of Prese nt Illness No Information Functional Status Date Functional Assessmen t No Information Instructions Date Instruction Additional Infor mation No Information Assessments Type Assessment Date No Information Patient Care Teams Name Effective Dates (start - stop) Status Members No Information
== END 2024-07-11 03:45 | disposition home or self-care (01) ==
PROVIDERS: Emergency Provider Emergency Medicine
DX: N93.8 Other specified abnormal uterine and vaginal bleeding (principal)
CPT/HCPCS: 36415; 80053; 81001; 81025; 85025; 87086; 99283

== ENCOUNTER 2024-07-15 05:04 | Emergency (ER) | payer MEDICAID, SELFPAY ==
[2024-07-15 05:13] VITALS: BP 134/71; PULSE 95; RESP 18; TEMP 37; O2SAT 100
[2024-07-15 07:17] VITALS: BP 133/74; PULSE 86; RESP 16; TEMP 36.4; O2SAT 100
--- NOTE | 2024-07-15 08:30 | PC.NURSE ---
Pt seen exiting ED in NAD
--- OUTSIDE RECORDS SUMMARY | 2024-07-22 08:24 | XMS_ITS | Encounter Summary ---
Author Organization [facility] Address [address] [place] [address] Care Team Providers Care Laundry Worker Name Role Phone Va Olivo MD Primary Care Provider [phone] Reason for Referral * Radiology Services (Routine) - Closed Specialty Diagnoses / Procedures Referred By Contac t Referred To Contact MRI Diagnoses Pain of right tibia Procedures MRI [place] [address] [place] [address] Referral ID Status Reason Start Date Expiration Date Visits Re quested Visits Authorized [id number] Closed 04/01/2023 03/31/2024 1 1 * Radiology Services (Routine) - Closed Specialty Diagnoses / Procedures Referred By Contac t Referred To Contact MRI Diagnoses Pain in left tibia Procedures MRI [place] [address] [address] [place] [address] Referral ID Status Reason Start Date Expiration Date Visits Re quested Visits Authorized [id number] Closed 04/06/2023 05/21/2023 1 1 Reason for Visit * Reason Comments 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 Prior to that, she would use ice, pain patches, Biofreeze, [employer] [place], massaging, and rolling. The patient states that these would be a quick fixfor her to finish her race. She states that she would put on a Biofreeze pain patch in the middle of her race, but it would worsen. She notes her pain becomes severe and swollen, and she will get random bruising. The patient is from [place]. 03/31/2023 8:09 AM Patient-entered Ortho Intake Form Referring provider national sales trainer Reason for visit Other Symptoms? Queen [...] uncomplicated ??? Seizure (CMS/HCC) happened thru out [employer] ??? Surgical: Past Surgical History: Procedure [...] in detail with the patient and her ict trainer via telephone regarding her ongoing symptoms. [...] have her continue following up with her ict trainer at the [facility] for ongoing care, including stretches, strengthening, and modalities. I emphasized the importance of cross training to maintain her cardiovascular fitness and strength. I will also hold her out from running at this point, as thisis a precipitating cause for her acute worsening of pain, and this was relayed to her ict trainer, who will still have a conversation with her motor coach driver. - Recommended Treatment: Meloxicam 15 mg once daily with food. Continue following up with her ict trainer at the [facility]. Cold therapy. 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 documented in this encounter Plan of Treatment Upcoming Encounters Date Type Department Care Team (Late st Contact Info) Description 07/27/2024 12:50 PM MANAGED CARE COORDINATOR Appointment [facility] Imaging Services - Ultrasound [address] [address] [place] [address] [place] [address] 08/03/2024 1:00 PM MANAGED CARE COORDINATOR Office Visit [facility] - DRYCLEANER [address] [place] [address] [place] [address] [place] [address] documented as of this encounter Goals Goal [...] Radiogr aphy Narrative 04/01/2023 1:10 PM CDT Bahsimin Deya ? 04/13/2023 10:15 AM Please see office note in Epic. Buzz Weston MD DIAGNOSTIC IMAGING O RDERABLES documented in this encounter Visit Diagnoses Diagnosis Pain in left tibia- Primary Pain of right tibia Pain of right tibia Pain in left tibia Pain of right tibia Pain in left tibia documented in this encounter Care Teams Laundry Worker Relationship Specialty Start Date End Date Va Olivo MD PCP - General Pediatrics 12/08/17 documented as of this encounter
--- OUTSIDE RECORDS SUMMARY | 2024-07-22 08:24 | XMS_ITS | Encounter Summary ---
Author Organization [facility] Address [address] [place] [address] Care Team Providers Care Supervisor Body Assembly Name Role Phone Va Olivo MD Primary Care Provider [phone] Reason for Visit * Reason Comments Seizure Encounter Details Date Type Department Care Team (Late st Contact Info) Description 04/08/2024 10:48 PM CDT - 04/09/2024 1:07 AM CDT Emergency ER at [address] [address] Ever Potter MD [facility] [place] [address] Seizure-like activity (HCC) (Primary Dx); [...] non-tender Spontaneously moving all extremities Review of [facility] discharge summary dated 11/13/2023: Patient has been [...] corrected inreal time. Please contact me via [employer] message if you note any errors requiring clarification. * Bertha Bennett RN - 04/08/2024 10:49 PM CDT BIB [facility] for [facility] activity. Pt hs seizure and [...] Potter MD - 04/09/2024 1:03 AM CDT [id number] Functional Neurological Symptom Disorder (Conversion Disorder) You [...] providers about all of the prescription medicines, kgup-mdg-dvflwwy medicines, vitamins, and supplements you take. Certain [...] someone else, call or text [phone] or [phone] ([phone]) right away. You will be connected to trained counselors who are part of the [employer]88 Suicide [employer] Crisis Lifeline. An online chat choice is also available. This service is free and available 02/02. Last Reviewed Date: 2023 00:00:00 ?? [phone] [employer]. All rights reserved. This information is not intended as a substitute for professional medical care. Always follow your healthcare professional's instructions. * Clinical References AVS - Ever Potter MD - 04/09/2024 12:01 AM CDT [id number] Functional Neurological Symptom Disorder (Conversion Disorder) You [...] providers about all of the prescription medicines, wnof-miw-pkvbltz medicines, vitamins, and supplements you take. Certain [...] someone else, call or text [phone] or [phone] ([phone]) right away. You will be connected to trained counselors who are part of the [employer] Suicide & Crisis Lifeline. An online chat choice is also available. This service is free and available 02/02. Last Reviewed Date: 2023 00:00:00 ?? 6875-9136 [employer]. All rights reserved. This information is not intended as a substitute for professional medical care. Always follow your healthcare professional's instructions. documented in this encounter Plan of Treatment Upcoming Encounters Date Type Department Care Team (Late st Contact Info) Description 07/27/2024 12:50 PM BAND EDGER Appointment [facility] Health Imaging Services - Ultrasound [address] [address] [place] [address] [place] [address] 08/03/2024 1:00 PM BAND EDGER Office Visit [facility] - FISH INSPECTOR [address] [place] [address] [place] [address] [place] [address] documented as of this encounter Goals [...] HCG BLOOD QUALITATIVE (04/08/2024 11:21 PM CDT) [facility] HCG Qual Serum Negative Negative 04/08/2024 11:44 PM CDT [facility] Blood BLOOD SPECIMEN / Unknown Venipuncture / Unknown 04/08/2024 11:21 PM CDT 04/08/2024 11:28 PM CDT Narrative [facility] - 04/08/2024 11:44 PM CDT Specimens containing human anti-mouse antibodies may exhibit false positive or false negative results. If qualitative interpretation is inconsistent with clinical evaluation, consider confirmation by an alternative hCG method. Ever Potter MD LAB - CHEMISTRY SALIMA MOORE Performing Organization Address City/[facility] Co de Phone Number [facility] [address] [place] [address] * MAGNESIUM BLOOD (04/08/2024 11:21 PM CDT) [facility] Magnesium 1.9 1.7 - 2.3 mg/dL 04/08/2024 11:50 PM CDT [facility] Blood BLOOD SPECIMEN / Unknown Venipuncture / Unknown 04/08/2024 11:21 PM CDT 04/08/2024 11:28 PM CDT Ever Potter MD LAB - CHEMISTRY SALIMA MOORE Performing Organization Address [facility]/ZIP Co de Phone Number [facility] [address] [place], [place] [id number] * CBC W AUTO DIFFERENTIAL (04/08/2024 11:21 PM CDT) [facility] WBC 4.9 4.0 - 10.7 x10E9/L 04/08/2024 [...] - 36.3 g/dL 04/08/2024 11:37 PM CDT [facility] RDW-CV 11.8 11.3 - 14.8 % 04/08/2024 11:37 PM CDT [facility] Platelet Count 282 150 - 420 x10E9/L 04/08/2024 11:37 PM CDT [facility] MPV 10.7 7.8 - 11.4 fL 04/08/2024 11:37 PM CDT [facility] Neutrophil % 46.2 41.0 - 74.0 % 04/08/2024 11:37 PM CDT [facility] Lymphocyte % 37.7 17.0 - 47.0 % 04/08/2024 11:37 PM CDT [facility] Monocyte % 8.8 3.0 - 11.0 % 04/08/2024 11:37 PM CDT [facility] Eosinophil % 5.9 0.0 - 7.0 % 04/08/2024 11:37 PM CDT [facility] Basophil % 1.2 0.0 - 1.6 % 04/08/2024 11:37 PM CDT [facility] Immature Granulocytes % 0.2 0.0 - 1.0 % 04/08/2024 11:37 PM CDT [facility] Neutrophil Absolute 2.27 1.60 - 7.50 x10E9/L 04/08/2024 11:37 PM CDT [facility] Lymphocyte Absolute 1.85 1.00 - 4.40 x10E9/L 04/08/2024 11:37 PM CDT [facility] Monocyte Absolute 0.43 0.15 - 1.00 x10E9/L 04/08/2024 11:37 PM CDT [facility] Eosinophil Absolute 0.29 0.00 - 0.60 x10E9/L 04/08/2024 11:37 PM CDT [facility] Basophil Absolute 0.06 0.00 - 0.13 x10E9/L 04/08/2024 11:37 PM CDT [facility] Blood BLOOD SPECIMEN / Unknown Venipuncture / Unknown 04/08/2024 11:21 PM CDT 04/08/2024 11:28 PM CDT Ever Potter MD LAB - HEMATOLOGY ORD ERABLES [facility] [address] [place] [address] * (ABNORMAL) BASIC METABOLIC PANEL (CALCIUM TOTAL) (04/08/2024 11:21 PM CDT) Glucose 113(H) 70 - 99 mg/dL 04/08/2024 11:50 PM CDT [facility] Sodium 138 136 - 145 mmol/L 04/08/2024 11:50 PM CDT [facility] Potassium 3.8 3.5 - 5.1 mmol/L 04/08/2024 11:50 PM CDT [facility] Chloride 107 98 - 107 mmol/L 04/08/2024 11:50 PM CDT [facility] CO2 23 22 - 29 mmol/L 04/08/2024 11:50 PM CDT [facility] Calcium 9.4 8.4 - 10.4 mg/dL 04/08/2024 11:50 PM CDT [facility] Anion Gap 8 6 - 16 mmol/L 04/08/2024 11:50 PM CDT [facility] BUN 12 5.3 - 18.7 mg/dL 04/08/2024 11:50 PM CDT [facility] Creatinine 0.84 0.57 - 1.11 mg/dL 04/08/2024 11:50 PM CDT [facility] eGFR by CKD-EPI >90 >=90 mL/min/1.7 3 m2 04/08/2024 11:50 PM CDT [facility] Blood BLOOD SPECIMEN / Unknown Venipuncture / Unknown 04/08/2024 11:21 PM CDT 04/08/2024 11:28 PM CDT Ever Potter MD LAB - CHEMISTRY SALIMA Rizzo Organization Address City/State/ZIP Co de Phone Number [facility] [address] [place] [address] documented in this encounter Visit [...] 2322 ($ New Bag/Syringe - Provider: Bertha Bennett RN)2353 (Stopped - Provider: Bertha Bennett RN) documented in this encounter Care Teams Supervisor Body Assembly Relationship Specialty Start Date End Date Va Olivo MD PCP - General Pediatrics 12/08/17 documented as of this encounter
--- OUTSIDE RECORDS SUMMARY | 2024-07-22 08:24 | XMS_ITS | Encounter Summary ---
Author Organization [facility] Address [address] [facility] [place] [address] Care Team Providers Care Bank Runner Name Role Phone Va Olivo MD Primary Care Provider [phone] Encounter Details Date Type Department Care Team [...] as of this encounter Plan of Treatment Upcoming Encounters Date Type Department Care Team (Late st Contact Info) Description 07/27/2024 12:50 PM BI TESTER Appointment [facility] Health Imaging Services - Ultrasound [address] [facility] [address] [place] [address] [place] [address] [place] [address] 08/03/2024 1:00 PM BI TESTER Office Visit [facility] - FUR COAT SEWER [address] [place] [address] [place] [address] [place], [place] [address] documented as of this encounter Goals Goal Patient Goal Type Associated Problems Recent Progress Patient-Stated? Author Yearly PCP visit Lifestyle Aster Willard, RN Note: Come into office for yearly wcc. Take recommended medication(s) Lifestyle Aster Willard, RN documented as of this encounter Visit Diagnoses Not on filedocumented in this encounter Care Teams Bank Runner Relationship Specialty Start Date End Date Va Olivo MD PCP - General Pediatrics 12/08/17 documented as of this encounter
--- OUTSIDE RECORDS SUMMARY | 2024-07-22 08:24 | XMS_ITS | Encounter Summary ---
Author Organization [facility] Address [address] [facility] [place] [address] Care Team Providers Care Evaluation Analyst Name Role Phone Va Olivo MD Primary Care Provider [phone] Reason for Referral * Radiology Services (Routine) - Closed Specialty Diagnoses / Procedures Referred By Contac t Referred To Contact MRI Diagnoses Pain of right tibia Procedures [place] [address] [place] [address] Referral ID Status Reason Start Date Expiration Date Visits Re quested Visits Authorized [id number] Closed 04/01/2023 03/31/2024 1 1 Reason for Visit * Radiology Services (Routine) - Closed Specialty Diagnoses / Procedures Referred By Contac t Referred To Contact MRI Diagnoses Pain of right tibia Procedures [place] [address] [address] [place] [address] Referral ID Status Reason Start Date Expiration Date Visits Re quested Visits Authorized [id number] Closed 04/01/2023 03/31/2024 1 1 Encounter Details Date Type Department Care Team (Latest Contact Info) Description 04/10/2023 9:00 AM CDT - 04/10/2023 9:06 AM CDT Hospital Encounter [facility] Imaging Services - MRI [address] [place] [id number] Discharge Disposition: Home or Self Care Social [...] st Contact Info) Description 07/27/2024 12:50 PM BUSINESS DEVELOPMENT AGENT Appointment [facility] Health Imaging Services - Ultrasound [address] [facility] [address] [place] [address] [place] [address] [address] [facility] [address] [place] [address] 08/03/2024 1:00 PM BUSINESS DEVELOPMENT AGENT Office Visit [facility] - ANTIQUE DEALER [address] [place] [address] [place] [address] [address] [place], [place] [phone] documented as of this encounter Goals Goal [...] tibia documented in this encounter Care Teams Evaluation Analyst Relationship Specialty Start Date End Date Va Olivo MD PCP - General Pediatrics 12/08/17 documented as of this encounter
--- OUTSIDE RECORDS SUMMARY | 2024-07-22 08:24 | XMS_ITS | Encounter Summary ---
Author Organization [facility] Address [address] [facility] [place] [address] Care Team Providers Care Spinner Fixer Name Role Phone Va Olivo MD Primary Care Provider [phone] Encounter Details Date Type Department Care Team (Latest Contact Info) Description 04/01/2023 1:15 PM CDT Ancillary Procedure [facility] Orthopedics - Radiology [id number] [place] [address] [place] [address] [facility] [address] [place] [address] Pain in left tibia Social [...] st Contact Info) Description 07/27/2024 12:50 PM TERRAZZO MECHANIC Appointment [facility] Health Imaging Services - Ultrasound [address] [facility] [address] [place] [address] [place] [address] [place] [address] 08/03/2024 1:00 PM TERRAZZO MECHANIC Office Visit [facility] - SILVER SOLDERER [address] [place] [address] [place] [address] [place], [place] [phone] documented as of this encounter Goals Goal [...] tibia documented in this encounter Care Teams Spinner Fixer Relationship Specialty Start Date End Date Va Olivo MD PCP - General Pediatrics 12/08/17 documented as of this encounter
--- OUTSIDE RECORDS SUMMARY | 2024-07-22 08:24 | XMS_ITS | Encounter Summary ---
Author Organization [facility] Address [address] [facility] [place] [address] Care Team Providers Care Branding Specialist Name Role Phone Va Olivo MD Primary Care Provider [phone] Reason for Visit * Reason Onset Date Comments MEDICATION REFILL 03/18/2023 Encounter Details Date Type Department Care Team (Late st Contact Info) Description 03/18/2023 Refill [facility] Pediatrics [address] [place] [address] Va Olivo MD [address] [facility] [phone] [place] [address] MEDICATION REFILL Social History Tobacco [...] st Contact Info) Description 07/27/2024 12:50 PM TEACHER OF THE HANDICAPPED Appointment [facility] Imaging Services - Ultrasound [address] [facility] [address] [place], [place] [phone] [place] [address] [place] [address] 08/03/2024 1:00 PM TEACHER OF THE HANDICAPPED Office Visit [facility] - INSURANCE CLERK [address] [place] [address] [place] [address] [place], [place] [phone] documented as of this encounter Goals Goal Patient Goal Type Associated Problems Recent Progress Patient-Stated? Author Yearly PCP visit Lifestyle Aster Willard RN Note: Come into office for yearly wcc. Take recommended medication(s) Lifestyle Aster Willard RN documented as of this encounter Visit Diagnoses Diagnosis Mild intermittent asthma without complication (HCC) Unspecified asthma documented in this encounter Care Teams Branding Specialist Relationship Specialty Start Date End Date Va Olivo MD PCP - General Pediatrics 12/08/17 documented as of this encounter
--- OUTSIDE RECORDS SUMMARY | 2024-07-22 08:24 | XMS_ITS | Encounter Summary ---
Author Organization [facility] Address [address] [place] [address] Care Team Providers Care Conditioning Room Worker Name Role Phone Va Olivo MD Primary Care Provider [phone] Reason for Visit * Reason Comments Well Child Check Sports Physical Encounter Details Date Type Department Care Team (Latest Contact Info) Description 12/24/2022 8:29 AM CDT - 12/24/2022 9:55 AM T Hospital Encounter [facility] [address], [address] [place] [address] Gillian Casillas, SUPPLY CHAIN TECH-BEARING PRESS MACHINE OPERATOR [address] [place] [address] Discharge Disposition: Home or Self [...] 12/24/2022 8:4 8 AM CDT Growth Chart: [facility] (Girls, 2- 20 Years) documented in this encounter Discharge Instructions * Patient Instructions* Gillian Casillas APRN-BEARING PRESS MACHINE OPERATOR - 12/24/2022 9:09 AM CDT Images from the original note were not included. [facility], . They accept most private insurance, HomeState and [facility] Medicaid - they can get patients in in 24- 48 hours and no referral is needed Psychology at [facility], no referral needed, - appt time about 1-2 months Psychology at [facility], no referral needed, , appt time about 1-2 months [facility]: [phone] [facility] Gayle Shepard [facility] [address] Serves [facility] Ages 4-19 Medicaid: No Private Insurance: No [place] only for [facility] residents - FREE In-home [facility]: [phone] [address] [place] [address] Serves [facility], [facility], [facility], and [facility] Ages 2-18 Medicaid: Yes Private Insurance: Yes [place] available Outpatient therapy / In-home [place]: [phone] [address] [place] [address] Serves [facility] Ages 5-18 Medicaid: Yes Private Insurance: Yes Sliding scale Outpatient therapy / psychiatry / school-based Family Forward [phone] [facility] [phone] [facility] Counseling [phone] [facility] [phone] ext. [phone] Free Crisis Hotline Behavioral Health Resources 02/02 [facility] Intake: [address] [place] [address], [place] [address] [address] [place] [address] [place] [address] [address], [place] [address] Serves [place], [facility], and [facility] Ages 4-18 Medicaid: Yes Private Insurance: No Outpatient therapy / psychiatry / in-home / school-based [facility]: [phone] Dr. Pacheco, child and adolescent psychiatry: [phone] or [phone] [facility] - [address] [facility] [address] [facility] [place] [address], [address] [place] [address] [facility] Children[facility] [phone] - [facility] Children's Help Line for Parents: Project Safety Net Parents seeking advice about issues related to kids of all ages are encouraged to call our free parent helpline at [phone]. This is a free service of [place] [facility] that helps parents understand more about the mental development of their child. The phone line is staffed by professionals offering assistance to parents on a wide range of issues. [facility] Pediatric Behavioral Health [phone] Psychology, Therapy, Psychiatry, and psychological testing/treatment. [facility] [address] [address] www.Malesbanget [phone] Parenting education, self-help, counseling and more. [facility] [address] [place] [address] www.mBloxbehavioralcareGoomzee [phone] Children, adolescent and adult mental health and substance abuse programs that include medication assisted therapy, as well as individual and group approaches and intensive outpatient programs. [facility] [address] [facility] [address] www.[facility].org [phone] Prevention and treatment of all forms of child abuse and neglect. Recently united with [facility]. Family-centered therapeutic, educational, and support services. Coverage now in [facility]. [facility] [address] [address] www.[facility].org [phone] [facility] provides therapy, counseling and an assortment of programs for adults and children with afull range of emotional and behavioral issues. Fees are based on a sliding scale and available to all. [facility] At [address] [address] www.[facility] [phone] A mental health practice that assesses and treats mental/behavioral health disorders in adults and children, in addition to community education and training. Provides treatment in mood disorders (depression, bipolar disorders); attention deficit/hyperactivity disorder; anxiety and trauma-related disorders; school and relationship problems; attachment; loss/grief; and diagnostic clarification. Several sources of funding and payment options, including Medicaid, private insurance, [facility] Children???s Services Funds, and sliding fee scale. V2contact Formerly [facility] [address] [facility], [address] [place] [address] AND [address], [address] [place] [address] www.[facility] rankinG-cluster.com/ Behavioral health care services for children, adolescents, adults and older adults and their families. Services include outpatient programs, partial hospitalization, office and telehealth treatment for a wide range of disorders. [facility] Several locations. Check website. www.[facility].org/ [phone] ([phone]) Mental health and counseling services in addition to adoption, foster care and assistance. [facility] [address] [place] [address] (New address) www.[facility].org [phone] Machine Overhauler Payee Program [phone]. Offers Mental Health Wellness Seminars for staff and clients at organizations and businesses; provides Machine Overhauler Payee services to manage SSI/SSDI benefits; delivers Parent Coaching sessions as part of the agency's PEACE (Preventing the Effects of Adverse Childhood Experiences) program; website contains educational information, linkage to support groups of all kinds, medication assistance programs, clinical trials for mental health conditions, and more. [facility] [address] [place] [address]. [address] www.[facility].org/organizations/noqeh-dmmej-pjiehavjgg/ [phone] Professional counseling and psychiatric services.or families and children of all backgrounds. Operates eight offices throughout the area, in addition to its School Partnership Program (SPP),which provides onsite services to students at more than 100 schools as well as children who are homeless living at area shelters. Operated by [employer]. [facility] [address] [place] [address]. [address] www.[facility].org/ [phone] Trauma-informed evidence-based mental health services to individuals and families. [facility] provides outpatient therapy, including Dialectical Behavior Therapy (DBT), Community-Based Crisis Stabilization Services and organizational trainings. ThismomentS [address] [address] www.N(i)² [phone] Provides integrated mental health services to children and adults who have experienced trauma, depression and anxiety, regardless of ability to pay. Parental Conflict Assistance [facility] [address] [facility] [address] [place] [address] www.[email or web address] [phone] Confidential and private mediations for a variety of family and relationship conflicts, in additionto parenting plans, tenant-landlord, community, and small business disputes. Online mediation available. Referrals from other agencies welcome. [facility] Main Location: [address] [place] [address] www.[email or web address] [phone] Now working with women and families. Job readiness and retention skills, as well as a legal clinic,youth leadership and 'The Family Formation'. [address], [place] [address] Call Shirin Williams [facility] Health Appointment number: [phone] 4 locations ([facility], [facility]) Children (under 18) who are [facility] residents-12 free session under [facility] Children???s Service Fund evelyn (Client can be reevaluated at that 12 and likely approved for more sessions) Youth In Need Individual/Group/Family [place] [phone] and [facility] [phone] Free to [facility] and [facility] youth under grants [facility] Center for Behavioral Health [phone] Individual, family Psychological evaluations (Autism) Free for [facility] Youth under 20 (https://www.[facility]/cb/Fees.html) [facility] intake@[facility].org or [phone] Free to many under various residency grants [place] [facility] [place] [facility] [place] Intake line: [phone] Accepts lots of insurance including good variety of commercial OCD & Anxiety IOP, Eating Disorder IOP, DBT, Gender affirming, psychological testing, individual, family, psychiatry [facility] Children and Family Services [phone] (ask for accounts specialist) [facility] [address] [facility] youth free services under evelyn, also offer low/no cost for those not evelyn eligible [facility] provides diagnostic assessments; Counseling; Psychiatry [place] [facility] 8 locations: Ernesto Murphy Office: [phone] Dhruv Office: [phone] Nancy: [phone] [place], [place]: [phone] MEAGAN Carpio: [phone] [place]: [phone] [facility]: [phone] YOUR GROWING CHILD: FIFTEEN to EIGHTEEN YEARS [...] data. If you need to reach a glass technologist after normal business hours, please call our [...] share in (or continuing to share in) transportation mechanic. Also increase awareness about community issues and [...] Most importantly, be a good role model! [place] [employer] BRIGHT FUTURES HANDOUT - PARENT 15 THROUGH 17 YEAR VISITS Here are some suggestions from [employer] experts that may be of value to [...] us. Community agencies and programs such as [employer] can also provide information and assistance. 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 - Do not tolerate drinking [...] true medical care and advice of your glass technologist. There may be variations in treatment that your glass technologist may recommend based on individual facts and circumstances. Original handout included as part of the Bright Futures Tool and Resource Kit, 2nd Edition. Inclusion in this handout does not imply an endorsement by the [place] [employer] (AAP). The AAP is not responsible for the content of the resources mentioned in this handout. Web site addresses are as current as possible but may change at any time. The [place] [employer] (AAP) does not review or endorse any modifications made to this handout and in no event shall the AAP be liable for any such changes. ?? 2019 [place] [employer]. All rights reserved. [place] [employer] Bright Futures https://brightfutures.aap.org [place] [employer] BRIGHT FUTURES HANDOUT for Journey 15 THROUGH 17 YEAR VISITS Here are some suggestions from [employer] experts that may be of value to [...] the dentist at least twice a year. [place] your teeth at least twice a day [...] SAFE Always be a safe and cautious regional owner operator truck driver. - Insist that everyone use [...] the medical care and advice of your glass technologist. There may be variations in treatment that your glass technologist may recommend based on individual facts and circumstances. Original handout included as part of the Bright Futures Tool and Resource Kit, 2nd Edition. Inclusion in this handout does not imply an endorsement by the [place] [employer] (AAP). The AAP is not responsible for the content of the resources mentioned in this handout. Web site addresses are as current as possible but may change at any time. The [place] [employer] (AAP) does not review or endorse any modifications made to this handout and in no event shall the AAP be liable for any such changes. ?? 2019 [place] [employer]. All rights reserved. [place] [employer] Bright Futures https://brightfutures.aap.org documented [...] as of this encounter Progress Notes * Jazmín Casillasn, FORREST-BEARING PRESS MACHINE OPERATOR - 12/24/2022 8:59 AM CDT Images from [...] been: -living on the street, homeless or senior care -recently released from a longterm, shelter, or intermediate -known to have tuberculosis, AIDS or is immunocompromised -comes from or has visited an area known to have tuberculosis -abuses drugs or is an IV drug user -is a migrant farmworker brooder farm -or has had a positive PPD or [...] Grade: just finished 12 grade Going to [employer] to study pre law HIGH RISK [...] - offered list of local dentist at front office agent ANY PROBLEMS IDENTIFIED AND ADDRESSED Yes Hearing [...] Height: 31 %ile (Z= -0.48) based on [facility] (Girls, 2-20 Years) Zaehzkn-evx-rsp data based on Stature recorded on 12/24/2022. Weight: 50 %ile (Z= -0.01) based on CDC (Girls, 2-20 Years) uwhijh-dhz-yjs data using vitals from 12/24/2022. BMI: 58 [...] Instructions [facility], . They accept most private insurance, HomeState and [facility] Medicaid - they can get patients in in 24- 48 hours and no referral is needed Psychology at [facility], no referral needed, - appt time about 1-2 months Psychology at [facility], no referral needed, , appt time about 1-2 months [facility]: [phone] [facility] [place] [address] ?? Serves [facility] ?? Ages 4-19 ?? Medicaid: No ?? Private Insurance: No ?? [place] only for [facility] residents - FREE ?? In-home [facility]: [phone] [place] [address]. [place] [address] ?? Serves [facility], [facility], [facility], and [facility] ?? Ages 2-18 ?? Medicaid: Yes ?? Private Insurance: Yes ?? [place] available ?? Outpatient therapy / In-home [place]: [phone] [address] [place] [address] ?? Serves [facility] ?? Ages 5-18 ?? Medicaid: Yes ?? Private Insurance: Yes ?? Sliding scale ?? Outpatient therapy / psychiatry / school-based [facility] [phone] [facility] [phone] [facility] [phone] [facility] [phone] ext. [phone] Free Crisis Hotline Behavioral Health Resources 02/02 [facility] Intake: [address] [place] [address], [place] [address] [address] [place] [address] [address] [place] [address] [address], [place] [address] ?? Serves [place], [facility], and [facility] ?? Ages 4-18 ?? Medicaid: Yes ?? Private Insurance: No ?? Outpatient therapy / psychiatry / in-home / school-based [facility] [facility]: [phone] Dr[address] Pacheco, child and adolescent psychiatry: [phone] or [phone] [facility]olescent [facility] - [address] [facility] [address] [facility] [facility], [address] [place] [address] [facility] Children's Psychiatry Center [phone] [facility] Children's Help Line for Parents: Project Safety Net Parents seeking advice about issues related to kids of all ages are encouraged to call our free parent helpline at [phone]. This is a free service of [place] [facility] that helps parents understand more about the mental development of their child. The phone line is staffed by professionals offering assistance to parents on a wide range of issues. [facility] Pediatric Behavioral Health [phone] Psychology, Therapy, Psychiatry, and psychological testing/treatment. [facility] [address] [address] www.Malesbanget [phone] Parenting education, self-help, counseling and more. [facility] [address] [place] [address] www.alternativebehavioralcareGoomzee [phone] Children, adolescent and adult mental health and substance abuse programs that include medication assisted therapy, as well as individual and group approaches and intensive outpatient programs. [facility] [address] [facility] [address] [address] www.[facility].org [phone] Prevention and treatment of all forms of child abuse and neglect. Recently united with [facility]. Family-centered therapeutic, educational, and support services. Coverage now in [facility] and [facility]. [facility] [address] [address] www.[facility].org [phone] [facility] provides therapy, counseling and an assortment of programs for adults and children with afull range of emotional and behavioral issues. Fees are based on a sliding scale and available to all. [facility] At [facility] [address] [facility] [address] www.[facility] [phone] A mental health practice that assesses and treats mental/behavioral health disorders in adults and children, in addition to community education and training. Provides treatment in mood disorders (depression, bipolar disorders); attention deficit/hyperactivity disorder; anxiety and trauma-related disorders; school and relationship problems; attachment; loss/grief; and diagnostic clarification. Several sources of funding and payment options, including Medicaid, private insurance, [facility] Children???s Services Funds, and sliding fee scale. [facility] Formerly [address] [place] [address] [place] [address], [address] [place] [address] www.[facility] rankinG-cluster.[employer]/ Behavioral health care services for children, adolescents, adults and older adults and their families. Services include outpatient programs, partial hospitalization, office and telehealth treatment for a wide range of disorders. [facility] Several locations. Check website. www.[facility].org/ [phone] ([phone]) Mental health and counseling services in addition to adoption, foster care and assistance. [facility] [address] [place] [address] (New address) www.[facility].org [phone] Machine Overhauler Payee Program [phone]. Offers Mental Health Wellness Seminars for staff and clients at organizations and businesses; provides Machine Overhauler Payee services to manage SSI/SSDI benefits; delivers Parent Coaching sessions as part of the agency's PEACE (Preventing the Effects of Adverse Childhood Experiences) program; website contains educational information, linkage to support groups of all kinds, medication assistance programs, clinical trials for mental health conditions, and more. [facility] [address] [place] [address]. [address] www.[facility].org/organizations/japdy-jshng-osruxoxhzz/ [phone] Professional counseling and psychiatric services.or families and children of all backgrounds. Operates eight offices throughout the area, in addition to its School Partnership Program (SPP),which provides onsite services to students at more than 100 schools as well as children who are homeless living at area shelters. Operated by [employer]. [facility] [address] [place] [address]. [address] www.[facility].org/ [phone] Trauma-informed evidence-based mental health services to individuals and families. [facility] provides outpatient therapy, including Dialectical Behavior Therapy (DBT), Community-Based Crisis Stabilization Services and organizational trainings. [address] [address] www.N(i)² [phone] Provides integrated mental health services to children and adults who have experienced trauma, depression and anxiety, regardless of ability to pay. Parental Conflict Assistance [facility] [address] [place] [address] www.mediationstl.org [phone] Confidential and private mediations for a variety of family and relationship conflicts, in additionto parenting plans, tenant-landlord, community, and small business disputes. Online mediation available. Referrals from other agencies welcome. [facility] Main Location: [address] [place] [address] www.fatherssupportcenter.org [phone] Now working with women and families. Job readiness and retention skills, as well as a legal clinic,youth leadership and 'The Family Formation[place] [address] Call Shirin Kramer [facility] ? Appointment number: [phone] ? 4 locations ([facility], [facility]) ? Children (under 18) who are [facility] residents-12 free session under [facility] Children???s Service Fund evelyn (Client can be reevaluated at that 12 and likely approved for more sessions) Youth In Need ? Individual/Group/Family ? [facility] [phone] and [facility] [phone] Free to [facility] and [facility] youth under grants [facility] Center for Behavioral Health ? [phone] ? Individual, family ? Psychological evaluations (Autism) Free for [facility] Youth under 20 (https://www.[facility]/cb/Fees.html) [facility] ? intake@[facility].org or [phone] ? Free to many under various residency grants [facility] ? Mustapha Leonardo, [place], [place] ? Intake line: [phone] ? Accepts lots of insurance including good variety of commercial OCD & Anxiety IOP, Eating Disorder IOP, DBT, Gender affirming, psychological testing, individual, family, psychiatry [facility] ? [phone] (ask for accounts specialist) ? [facility] [id number] ? [facility] youth free services under evelyn, also offer low/no cost for those not evelyn eligible [facility] provides diagnostic assessments; Counseling; Psychiatry [facility] 1. 8 locations: - [place] Office: [phone] - [place] Office: [phone] - [place]: [phone] - O???MEAGAN Farah: [phone] - MEAGAN Carpio: [phone] - [place]: [phone] [facility]: [phone] YOUR GROWING CHILD: FIFTEEN to EIGHTEEN YEARS [...] data. If you need to reach a glass technologist after normal business hours, please call our [...] share in (or continuing to share in) transportation mechanic. Also increase awareness about community issues and [...] Most importantly, be a good role model! [employer] BRIGHT FUTURES HANDOUT - [...] solve problems, and make decisions. ?? Help Geryson deal with conflict. ?? If you are worried about your living or food situation, talk with us. Community agencies and programs such as [employer] can also provide information and assistance. ?? [...] tobacco use, driving, and sex. ?? 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 - Do not tolerate drinking [...] true medical care and advice of your glass technologist. There may be variations in treatment that your glass technologist may recommend based on individual facts and circumstances. Original handout included as part of the Bright Futures Tool and Resource Kit, 2nd Edition. Inclusion in this handout does not imply an endorsement by the [employer] [employer] (AAP). The AAP is not responsible for the content of the resources mentioned in this handout. Web site addresses are as current as possible but may change at any time. The [place] [employer] (AAP) does not review or endorse any modifications made to this handout and in no event shall the AAP be liable for any such changes. ?? 2019 [place] [employer]. All rights reserved. [employer] [employer] Bright Futures [email or web address]://brightfutures.aap.org [employer] [employer] BRIGHT FUTURES HANDOUT for Journey 15 THROUGH 17 YEAR VISITS Here are some suggestions from [employer] experts that may be of value to [...] dentist at least twice a year. ?? [place] your teeth at least twice a day [...] ?? Always be a safe and cautious regional owner operator truck driver. - Insist that everyone use [...] the medical care and advice of your glass technologist. There may be variations in treatment that your glass technologist may recommend based on individual facts and circumstances. Original handout included as part of the Bright Futures Tool and Resource Kit, 2nd Edition. Inclusion in this handout does not imply an endorsement by the [place] [employer] (AAP). The AAP is not responsible for the content of the resources mentioned in this handout. Web site addresses are as current as possible but may change at any time. The [place] [employer] (AAP) does not review or endorse any modifications made to this handout and in no event shall the AAP be liable for any such changes. ?? 2019 [place] [employer]. All rights reserved. [employer] Bright Futures [email or web address]://brightfutures.aap.org documented in this encounter Plan of Treatment Upcoming Encounters Date Type Department Care Team (Late st Contact Info) Description 07/27/2024 12:50 PM SENIOR PRODUCTION SUPERVISOR Appointment [facility] Health Imaging Services - Ultrasound [address] [facility] [address] [place] [address] [place] [address] [place] [id number] 08/03/2024 1:00 PM SENIOR PRODUCTION SUPERVISOR Office Visit [facility] - [facility] T[facility] [place] [phone] [place] [id number] [place], [place] [id number] documented as of this encounter Goals Goal [...] vision documented in this encounter Care Teams Conditioning Room Worker Relationship Specialty Start Date End Date Va Olivo MD PCP - General Pediatrics 12/08/17 documented as of this encounter
--- OUTSIDE RECORDS SUMMARY | 2024-07-22 08:24 | XMS_ITS | Encounter Summary ---
Author Organization [facility] Address [address] [facility] [place] [address] Care Team Providers Care Scalp Treatment Specialist Name Role Phone Va Olivo MD Primary Care Provider [phone] Reason for Visit * Reason Onset Date Comments Results 05/19/2022 Encounter Details Date Type Department Care Team (Late st Contact Info) Description 05/19/2022 Telephone [facility] - Neurology [facility] [facility] [place] [address] Jhonatan Nuñez MD [facility] [place] [address] Results Social History Tobacco Use Types Packs/Day [...] Coronavirus/COVID-19? No / Unsure 05/19/2022 9:59 AM PAINTER BARREL documented as of this encounter Miscellaneous Notes * Telephone Encounter - Shadia Covington RN - 05/21/2022 11:29 AM CST Relayed normal EEG result to parent. Mother request letter for school be faxed to [facility] [employer], fax [phone], completed. Aware to call back for appt in Aug 2022. TER BARREL * Telephone Encounter - Jhonatan Nuñez MD - 05/20/2022 5:02 PM PAINTER BARREL EEG normal. Dr. Brito drafted a letter stating these episodes were not epileptic and that she should be allowedto sit down to prevent a syncopal episode and can recover in the nurses office etc. Maybe it wasn'tprinted out at the visit? But I thought it was. TER BARREL * Telephone Encounter - Shadia Covington RN [...] back on letter needs for school, etc TER BARREL * Telephone Encounter - Shadia Covington RN [...] form for school for PN[employer] vs [employer]? TER BARREL documented in this encounter Plan of Treatment Upcoming Encounters Date Type Department Care Team (Late st Contact Info) Description 07/27/2024 12:50 PM PAINTER BARREL Appointment [facility] Imaging Services - Ultrasound [address] [facility] [address] [place] [address] [place] [id number] [place] [address] 08/03/2024 1:00 PM PAINTER BARREL Office Visit [facility] - [address] LIGHT LAMP CLEANER [address] [place] [phone] [place] [address] [place], [place] [id number] documented as of this encounter Goals Goal Patient Goal Type Associated Problems Recent Progress Patient-Stated? Author Yearly PCP visit Lifestyle Aster Willard, RN Note: Come into office for yearly wcc. Take recommended medication(s) Lifestyle No Aster Garnica RN documented as of this encounter Visit Diagnoses Not on filedocumented in this encounter Care Teams Scalp Treatment Specialist Relationship Specialty Start Date End Date Va Olivo MD PCP - General Pediatrics 12/08/17 documented as of this encounter
--- OUTSIDE RECORDS SUMMARY | 2024-07-22 08:24 | XMS_ITS | Clinical Summary ---
Author Organization [facility] Address [address] [place] [address] Care Team Providers Care Employee Relations Consultant Name Role Phone Va Olivo MD Primary Care Provider [phone] Source Comments [facility] Affiliates and Associated Physician Practices is amultiple site organization consisting of ambulatory clinics and hospital sitesin [place], [place], [place] and [place]. This disclosure is being madepursuant to the Care Everywhere program and may not contain all information available regarding this patient. Last updated 18.[facility] Allergies Active Allergy Reactions Criticality Noted Date Comments Fd&C Blue #2-Levetiracetam Itching 5 Medications * Be aware that medications may not be up to date on this document. Alwaysverify current medications with the patient. Medication Sig Dispensed Refills Start Date End Date Status LESSINA-28 0.1-20 MG-MCG tabletIndications:Co ntraceptive Therapy,irregular periods Take 1 (one) tablet by mouth once daily Reasons: Control Treatment, irregular periods 1 packet 12 04/14/2022 Active Additional Information Patient not taking.Reported on 07/20/2024 albuterol HFA (ProAir HFA) 108 (90 Base) MCG/ACT inhalerIndications:M ild intermittent asthma without complication (HCC) INHALE 2 [...] mouth once daily 30 tablet 04/01/2023 Active Additional Information Patient not taking.Reported on 07/20/2024 cetirizine (ZyrTEC) 5 MG tablet Take 1 (one) tablet by mouth once daily 30 tablet 10/29/2023 Active medroxyPROGESTERone (Provera) 10 MG tabletIndications:Ab normal uterine bleeding (AUB) Take 1 (one) tablet by mouth once daily 90 tablet 07/20/2024 Active Active Problems Patient Care Coordination No te Formatting of this note migh t be different from the original. 11/05/21 No show letter #1 sent @[facility] ER Problem Noted Date Diagnosed Date Influenza B 09/09/2022 Assessment & Plan (09/09/2022 11:58 AM LEGAL PROCESS SPECIALIST): Give albuterol prn, if increase distress call-mother aware that the flu can exacerbate the flu Queen splints 11/29/2021 Poor sleep hygiene 11/29/2021 Mild intermittent asthma without complication History of syncope 12/21/2014 Resolved Problems Problem Noted Date Diagnosed Date Resolved Date Failure to attend appointment 09/16/2013 02/17/2019 Overview (09/16/2013): Letter #1 GERD (gastroesophageal reflux disease) 01/06/2005 02/17/2019 Gestation Period, 35-36 Weeks 2004 12/08/2017 Encounters Date Type Department Care Team Description 07/20/2024 1:00 PM LEGAL PROCESS SPECIALIST Office Visit [facility] - MEDICAL DIR [address] [place] [id number] Jeremie Perez MD Abnormal uterine bleeding (AUB) (Primary Dx); Screen for STD (sexually transmitted disease) 07/20/2024 Travel 07/19/2024 3:34 PM LEGAL PROCESS SPECIALIST - 07/19/2024 5:27 PM LEGAL PROCESS SPECIALIST Emergency ER at [facility] [address] [place] [address] DUB (dysfunctional uterine bleeding) (Primary Dx) Discharge Disposition: Home or Self Care from Last 3 Months Immunizations Name Administration Dates Next Due DTAP/HEP [...] Known half-sister 2 None Known half-sister 3 Cancer - Breast Neg Hx Cancer - Colon Neg Hx Cancer - Ovarian Neg Hx Cancer - Uterine Neg Hx Relation Name Status Comments Father Alive Maternal [...] Sign Reading Time Taken Comments Blood Pressure 110/72 07/20/2024 1:23 PM LEGAL PROCESS SPECIALIST Pulse 70 07/20/2024 1:23 PM LEGAL PROCESS SPECIALIST Temperature 36.7 ??C (98 ??F) 07/19/2024 3:34 PM LEGAL PROCESS SPECIALIST Respiratory Rate 16 07/19/2024 3:34 PM LEGAL PROCESS SPECIALIST Oxygen Saturation 100% 07/20/2024 1:23 PM LEGAL PROCESS SPECIALIST Inhaled Oxygen Concentration - - Weight 66.3 kg (146 lb 3.2 oz) 07/20/2024 1:23 P M LEGAL PROCESS SPECIALIST Height 158.5 cm (5' 2.4 ) 07/20/2024 1:23 PM LEGAL PROCESS SPECIALIST Body Mass Index 26.4 07/20/2024 1:23 PM LEGAL PROCESS SPECIALIST Plan of Treatment Upcoming Encounters Date Type Department Care Team (Late st Contact Info) Description 07/27/2024 12:50 PM LEGAL PROCESS SPECIALIST Appointment [facility] - Ultrasound [address] [phone] [place] [address] [place] [address] [place] [address] 08/03/2024 1:00 PM LEGAL PROCESS SPECIALIST Office Visit [facility] - MEDICAL DIR [address] [place] [address] [place] [address] [place] [address] [place] [address] Health Maintenance Due Date Last Done Comments PNEUMOCOCCAL VACCINE (1 of 1 - PPSV23) 2010 11/11/2005, 07/04/2005, 04/08/2005, Additional history exists HIV SCREENING 11/05/2019 MENINGOCOCCAL (Group B) VACC INE (1 of 2 - Standard) 2020 HEPATITIS C SCREENING 10/31/2022 COVID-19 VACCINE (2023-2 5 season) 2024 INFLUENZA VACCINE (#1) 2024 05/07/2011 DEPRESSION SCREENING 07/13/2024 12/24/2022, 11/30/19 CHLAMYDIA/GONORRHEA SCREENING 07/20/2025 07/20/2024, 04/14/2022 DTAP/TDAP/TD VACCINES (7 - T d or [...] wcc. Take recommended medication(s) Lifestyle Aster Willard, exhaust worker Procedure Name Priority Date/Time Associated Diagnosis Comments ESTRADIOL Routine 07/20/2024 2:06 PM LEGAL PROCESS SPECIALIST Abnormal uterine bleeding (AUB) FSH + LH PANEL Routine 07/20/2024 2:06 PM LEGAL PROCESS SPECIALIST Abnormal uterine bleeding (AUB) PROLACTIN Routine 07/20/2024 2:06 PM LEGAL PROCESS SPECIALIST Abnormal uterine bleeding (AUB) IRON + TIBC + FERRITIN Routine 2:06 PM LEGAL PROCESS SPECIALIST Abnormal uterine bleeding (AUB) CBC W/O DIFFERENTIAL Routine 07/20/2024 2:06 PM LEGAL PROCESS SPECIALIST Abnormal uterine bleeding (AUB) TSH REFLEX FREE T4 Routine 07/20/2024 2: 06 PM LEGAL PROCESS SPECIALIST Abnormal uterine bleeding (AUB) CHLAMYDIA + GC + TRICH DNA AMPL Routine 07/20/2024 12:00 AM LEGAL PROCESS SPECIALIST URINALYSIS REFLEX TO MICROSCOPIC NO CULTURE STAT 07/19/2024 4:20 PM LEGAL PROCESS SPECIALIST HCG BLOOD QUALITATIVE STAT 07/19/2024 4:18 PM LEGAL PROCESS SPECIALIST CBC W AUTO DIFFERENTIAL STAT 07/19/2024 4:18 PM LEGAL PROCESS SPECIALIST COMPREHENSIVE METABOLIC PANEL STAT 07/19/2024 4:18 PM LEGAL PROCESS SPECIALIST from Last 3 Months Results * (ABNORMAL) IRON + TIBC + FERRITIN (07/20/2024 2:06 PM LEGAL PROCESS SPECIALIST) TIBC 388 250 - 450 ug/dL [facility] INSURANCE BILL UIBC 349 131 - 425 ug/dL [facility] INSURANCE BILL Iron 39 27 - 159 ug/dL [facility] INSURANCE BILL Iron Saturation 10(L) 15 - 55 % [facility] INSURANCE BILL Ferritin 17 15 - 77 ng/mL [facility] INSURANCE BILL Blood BLOOD SPECIMEN / Unknown 07/20/2024 2:06 PM LEGAL PROCESS SPECIALIST 07/20/2024 Narrative [facility] INSURANCE BILL - 07/21/2024 7:09 AM LEGAL PROCESS SPECIALIST Performed at: ??01 - [facility] [address] ??[id number] Shucker: Dillon Aguirre PhD, Phone: ??[phone] Jeremie Perez MD LAB - CHEMISTRY ORD ERABLES [facility] INSURANCE BILL [address] [place] [address] * TSH REFLEX FREE T4 (07/20/2024 2:06 PM LEGAL PROCESS SPECIALIST) TSH 1.180 0.450 - 4.500 uIU/mL [facility] INSURANCE BILL Blood BLOOD SPECIMEN / Unknown 07/20/2024 2:06 PM LEGAL PROCESS SPECIALIST 07/20/2024 Narrative [facility] INSURANCE BILL - 07/21/2024 8:13 AM LEGAL PROCESS SPECIALIST Performed at: ??01 - [facility] [address] [place], [place] ??[id number] Shucker: Dillon Aguirre PhD, Phone: ??[phone] Jeremie Perez MD LAB - CHEMISTRY [employer] Performing Organization Address [facility] de Phone Number [facility] INSURANCE BILL [address] [place] [address] * PROLACTIN (07/20/2024 2:06 PM LEGAL PROCESS SPECIALIST) Prolactin 7.5 4.8 - 33.4 ng/mL [facility] INSURANCE BILL Blood BLOOD SPECIMEN / Unknown 07/20/2024 2:06 PM LEGAL PROCESS SPECIALIST 07/20/2024 Narrative [facility] INSURANCE BILL - 07/21/2024 7:09 AM LEGAL PROCESS SPECIALIST Performed at: ??01 - [facility] [address] [place], [place] ??[id number] Shucker: Dillon Aguirre PhD, Phone: ??[phone] Jeremie Perez MD LAB - CHEMISTRY [employer] Performing Organization Address [facility] de Phone Number [facility] INSURANCE BILL [address] [place] [address] * ESTRADIOL (07/20/2024 2:06 PM LEGAL PROCESS SPECIALIST) Estradiol 56.0 pg/mL [facility] INSURANCE BILL Comment: ? Adult Female ? Range ?Follicular phase ? 12.5 - 166.0 ?Ovulation phase ?85.8 - 498.0 ?Luteal phase ? 43.8 - 211.0 ?Postmenopausal ? <6.0 - ??54.7 ?1st trimester ? 215.0 - >4300.0 Akhil ECLIA methodology Blood BLOOD SPECIMEN / Unknown 07/20/2024 2:06 PM LEGAL PROCESS SPECIALIST 07/20/2024 Narrative [facility] INSURANCE BILL - 07/21/2024 7:09 AM LEGAL PROCESS SPECIALIST Performed at: ??01 - [facility] ??[id number] Shucker: Dillon Aguirre PhD, Phone: ??[phone] Jeremie Perez MD LAB - CHEMISTRY ORD ERABLES [facility] INSURANCE BILL [address] [place] [address] * (ABNORMAL) CBC W/O DIFFERENTIAL (07/20/2024 2:06 PM LEGAL PROCESS SPECIALIST) WBC 3.1(L) 3.4 - 10.8 x10E3/uL [facility] INSURANCE BILL RBC 4.09 3.77 - 5.28 x10E6/uL [facility] INSURANCE BILL Hemoglobin 11.0(L) 11.1 - 15.9 g/dL [facility] INSURANCE BILL Hematocrit 34.3 34.0 - 46.6 % [facility] INSURANCE BILL MCV 84 79 - 97 fL [facility] INSURANCE BILL MCH 26.9 26.6 - 33.0 pg [facility] INSURANCE BILL MCHC 32.1 31.5 - 35.7 g/dL [facility] INSURANCE BILL RDW 11.5(L) 11.7 - 15.4 % [facility] INSURANCE BILL Platelet Count 434 150 - 450 x10E3/uL [facility] INSURANCE BILL Blood BLOOD SPECIMEN / Unknown 07/20/2024 2:06 PM LEGAL PROCESS SPECIALIST 07/20/2024 Narrative [facility] INSURANCE BILL - 07/21/2024 7:09 AM LEGAL PROCESS SPECIALIST Performed at: ??01 - [facility] [place] [address] [place], [place] ??[id number] Shucker: Dillon Aguirre PhD, Phone: ??[phone] Jeremie Perez MD LAB - HEMATOLOGY OR DERABLES [facility] INSURANCE BILL [address] [place] [address] * FSH + LH PANEL (07/20/2024 2:06 PM LEGAL PROCESS SPECIALIST) LH 27.4 mIU/mL [facility] INSURANCE BILL Comment: ? Adult Female ?Range ?Follicular phase ?2.4 - ??12.6 ?Ovulation phase ?14.0 - ??95.6 ?Luteal phase ?1.0 - ??11.4 ?Postmenopausal ?7.7 - ??58.5 FSH 10.6 mIU/mL [facility] INSURANCE BILL Comment: ? Adult Female ? Range ?Follicular phase ?3.5 - ??12.5 ?Ovulation phase ? 4.7 - ??21.5 ?Luteal phase ?1.7 - ?? 7.7 ?Postmenopausal ? 25.8 - 134.8 Blood BLOOD SPECIMEN / Unknown 07/20/2024 2:06 PM LEGAL PROCESS SPECIALIST 07/20/2024 Narrative [facility] INSURANCE BILL - 07/21/2024 7:09 AM LEGAL PROCESS SPECIALIST Performed at: ??01 - [facility] [address] ??[id number] Shucker: Dillon Aguirre PhD, Phone: ??[phone] Jeremie Perez MD LAB - CHEMISTRY ORD ERABLES Performing Organization Address [facility] de Phone Number [facility] INSURANCE BILL [address] [place] [address] * CHLAMYDIA + GC + TRICH DNA AMPL (07/20/2024 12:00 AM LEGAL PROCESS SPECIALIST) Chlamydia trachomatis AUGUSTO Negative Negative [facility] ACCOUNT BILL GC DNA Probe Negative Negative [facility] ACCOUNT BILL Trichomonas vaginalis by AUGUSTO Negative Negative [facility] ACCOUNT BILL 07/20/2024 07/20/2024 Narrative [facility] ACCOUNT BILL - 07/21/2024 9:07 PM LEGAL PROCESS SPECIALIST Performed at: ??01 - [facility] [address] ??[id number] Shucker: Clara Crawford MD, Phone: ??[phone] Jeremie Perez MD LAB - MICROBIOLOGY ORDERABLES Performing Organization Address [facility] de Phone Number [facility] ACCOUNT BILL [address] [place] [address] * (ABNORMAL) URINALYSIS REFLEX TO MICROSCOPIC NO CULTURE (07/19/2024 4:20 PM LEGAL PROCESS SPECIALIST) Color UA Yellow Yellow, Straw 07/19/2024 5:04 PM LEGAL PROCESS SPECIALIST [facility] Clarity UA Clear Clear 07/19/2024 5:04 PM LEGAL PROCESS SPECIALIST [facility] Glucose UA Normal Normal 07/19/2024 5:04 PM LEGAL PROCESS SPECIALIST [facility] Bilirubin UA Negative Negative 07/19/2024 5:04 PM LEGAL PROCESS SPECIALIST [facility] Ketone UA Negative Negative 07/19/2024 5:04 PM LEGAL PROCESS SPECIALIST [facility] Specific [place] UA 1.032(H) 1.005 - 1.030 07/19/2024 5:04 PM LEGAL PROCESS SPECIALIST [facility] Blood UA 3+(A) Negative 07/19/2024 5:04 PM LEGAL PROCESS SPECIALIST [facility] pH UA 7.0 5.0 - 9.0 pH 07/19/2024 5:04 PM [facility] Protein UA Trace(A) Negative 07/19/2024 5:04 PM LEGAL PROCESS SPECIALIST [facility] Urobilinogen UA 2.0(A) Normal mg/dL 025 5:04 PM [facility] Nitrite UA Negative Negative 07/19/2024 5:04 PM LEGAL PROCESS SPECIALIST [facility] Leukocyte UA Negative Negative 07/19/2024 5:04 PM [facility] RBC UA >100(A) 0 - 5 # /hpf 07/19/2024 5:04 PM [facility] WBC UA 0-5 0 - 5 # /hpf 07/19/2024 5:04 PM LEGAL PROCESS SPECIALIST [facility] Bacteria UA None Seen None Seen 07/19/2024 5:04 PM LEGAL PROCESS SPECIALIST [facility] Squamous Epithelial Cells 0-2 0 - 5 /hpf 07/19/2024 5:04 PM [facility] Mucus UA 2+ /LPF 07/19/2024 5:04 PM [facility] Urine URINE SPECIMEN OBTAINED BY CLEAN CATCH PROCEDURE / Unknown Collection / Unknown 07/19/2024 4:20 PM LEGAL PROCESS SPECIALIST 07/19/2024 4:51 PM LEGAL PROCESS SPECIALIST Narrative [facility] - 07/19/2024 5:04 PM LEGAL PROCESS SPECIALIST Ruchi Chappell APRN-MILLING MACHINE OPERATOR LAB - URINALYSIS ORDERABLES [facility] [address] [place] [address] * (ABNORMAL) CBC W AUTO DIFFERENTIAL (07/19/2024 4:18 PM LEGAL PROCESS SPECIALIST) WBC 2.9(L) 4.0 - 10.7 x10E9/L 07/19/2024 4:56 PM [facility] RBC Count 4.11 3.90 - 5.20 x10E12/L 07/19/2024 4:56 PM [facility] Hemoglobin 11.1(L) 11.9 - 15.8 g/dL 07/19/2024 4:56 PM [facility] Hematocrit 34.0(L) 34.8 - 46.1 % 07/19/2024 4:56 PM [facility] MCV 82.7 80.0 - 98.0 fL 07/19/2024 4:56 PM [facility] MCH 27.0 26.7 - 33.6 pg 07/19/2024 4:56 PM [facility] MCHC 32.6 31.7 - 36.3 g/dL 07/19/2024 4:56 PM [facility] RDW-CV 11.7 11.3 - 14.8 % 07/19/2024 4:56 PM [facility] Platelet Count 345 150 - 420 x10E9/L 07/19/2024 4:56 PM [facility] MPV 10.3 7.8 - 11.4 fL 07/19/2024 4:56 PM [facility] Neutrophil % 44.6 41.0 - 74.0 % 07/19/2024 4:56 PM [facility] Lymphocyte % 44.0 17.0 - 47.0 % 07/19/2024 4:56 PM [facility] Monocyte % 8.6 3.0 - 11.0 % 07/19/2024 4:56 PM [facility] Eosinophil % 1.4 0.0 - 7.0 % 07/19/2024 4:56 PM [facility] Basophil % 1.4 0.0 - 1.6 % 07/19/2024 4:56 PM [facility] Immature Granulocytes % 0.0 0.0 - 1.0 % 07/19/2024 4:56 PM [facility] Neutrophil Absolute 1.30(L) 1.60 - 7.50 x10E9/L 07/19/2024 4:56 PM [facility] Lymphocyte Absolute 1.28 1.00 - 4.40 x10E9/L 07/19/2024 4:56 PM [facility] Monocyte Absolute 0.25 0.15 - 1.00 x10E9/L 07/19/2024 4:56 PM LEGAL PROCESS SPECIALIST [facility] Eosinophil Absolute 0.04 0.00 - 0.60 x10E9/L 07/19/2024 4:56 PM [facility] Basophil Absolute 0.04 0.00 - 0.13 x10E9/L 07/19/2024 4:56 PM [facility] Blood BLOOD SPECIMEN / Unknown Venipuncture / Unknown 07/19/2024 4:18 PM LEGAL PROCESS SPECIALIST 07/19/2024 4:50 PM LEGAL PROCESS SPECIALIST Ruchi Chappell MILITARY TECHNOLOGY SPECIALIST-MILLING MACHINE OPERATOR LAB - HEMATOLOGY ORDERABLES [facility] [address] [place] [address] * (ABNORMAL) COMPREHENSIVE METABOLIC PANEL (07/19/2024 4:18 PM LEGAL PROCESS SPECIALIST) Glucose 93 70 - 99 mg/dL 07/19/2024 5:15 PM [facility] Sodium 139 136 - 145 mmol/L 07/19/2024 5:15 PM [facility] Potassium 5.7(H) 3.5 - 5.1 mmol/L 07/19/2024 5:15 PM [facility] Comment:Specimen is Moderate ly Hemolyzed. This potassium result may be falsely elevated. Chloride 109(H) 98 - 107 mmol/L 07/19/2024 5:15 PM [facility] CO2 20(L) 22 - 29 mmol/L 07/19/2024 5:15 PM [facility] Calcium 10.0 8.4 - 10.4 mg/dL 07/19/2024 5:15 PM [facility] Anion Gap 10 6 - 16 mmol/L 07/19/2024 5:15 PM [facility] BUN 15 5.3 - 18.7 mg/dL 07/19/2024 5:15 PM [facility] Creatinine 1.05 0.57 - 1.11 mg/dL 07/19/2024 5:15 PM [facility] Alkaline Phosphatase 68 40 - 150 U/L 07/19/2024 5:15 PM [facility] ALT 15 0 - 55 U/L 07/19/2024 5:15 PM LEGAL PROCESS SPECIALIST [facility] AST 36(H) 5 - 34 U/L 07/19/2024 5:15 PM LEGAL PROCESS SPECIALIST [facility] Comment:Specimen is Moderate ly Hemolyzed. This AST result may be falsely elevated. Protein Total 8.5(H) 6.4 - 8.3 gm/dL 07/19/2024 5:15 PM LEGAL PROCESS SPECIALIST [facility] Comment:Specimen is Moderate ly Hemolyzed. This total protein result may be falsely elevated. Albumin 4.5 3.4 - 5.0 gm/dL 07/19/2024 5:15 PM LEGAL PROCESS SPECIALIST [facility] Bilirubin Total 0.3 0.2 - 1.2 mg/dL 07/19/2024 5:15 PM LEGAL PROCESS SPECIALIST [facility] eGFR by CKD-EPI 78(L) >=90 mL/min/1.7 3 m2 07/19/2024 5:15 PM LEGAL PROCESS SPECIALIST [facility] Blood BLOOD SPECIMEN / Unknown Venipuncture / Unknown 07/19/2024 4:18 PM LEGAL PROCESS SPECIALIST 07/19/2024 4:51 PM LEGAL PROCESS SPECIALIST Ruchi Chappell APRN-[facility] LAB - CHEMISTRY O RDERABLES Performing Organization Address [facility] de Phone Number [facility] [id number] [place] [address] * HCG BLOOD QUALITATIVE (07/19/2024 4:18 PM LEGAL PROCESS SPECIALIST) HCG Qual Serum Negative Negative 07/19/2024 5:11 PM LEGAL PROCESS SPECIALIST [facility] Blood BLOOD SPECIMEN / Unknown Venipuncture / Unknown 07/19/2024 4:18 PM LEGAL PROCESS SPECIALIST 07/19/2024 4:51 PM LEGAL PROCESS SPECIALIST Narrative [facility] - 07/19/2024 5:11 PM LEGAL PROCESS SPECIALIST Specimens containing human anti-mouse antibodies may exhibit false positive or false negative results. If qualitative interpretation is inconsistent with clinical evaluation, consider confirmation by an alternative hCG method. Ruchi Chappell MILITARY TECHNOLOGY SPECIALIST-[facility] LAB - CHEMISTRY O RDERABLES Performing Organization Address [facility] Co de Phone Number [facility] [address] [place] [address] from Last 3 Months Advance Directives Documents on File Type Date Recorded Patient Capper Machine Operator Expl anation Adv Directive/Living Will/POA 12/14/2013 2:19 PM Care Teams Employee Relations Consultant Relationship Specialty Start Date End Date Va Olivo MD PCP - General Pediatrics 12/08/17
--- OUTSIDE RECORDS SUMMARY | 2024-07-22 08:24 | XMS_ITS | Patient Health Summary ---
Author Organization [facility] Address [address] [place] [address] Care Team Providers Care Cemetery Workers Supervisor Name Role Phone Va Olivo MD Primary Care Provider [phone] Note from [facility],non-owned Affiliates and Associated Physician Practices is amultiple site organization consisting of ambulatory clinics and hospital sitesin [place], [place], [place] and [place]. This disclosure is being madepursuant to the Care Everywhere program and may not contain all information available regarding this patient. Last updated 18.[facility] Allergies * Fd&C Blue #2-Levetiracetam(Itching) Medications * Be aware that medications may [...] (one) tablet by mouth once daily * medroxyPROGESTERone (Provera) 10 MG tablet(Started 07/20/2024) Take 1 (one) tablet by mouth once [...] Comments Blood Pressure 110/72 07/20/2024 1:23 PM CONSTRUCTION PLANT OPERATOR Pulse 70 07/20/2024 1:23 PM CONSTRUCTION PLANT OPERATOR Temperature 36.7 ??C (98 ??F) 07/19/2024 3:34 PM CONSTRUCTION PLANT OPERATOR Respiratory Rate 16 07/19/2024 3:34 PM CONSTRUCTION PLANT OPERATOR Oxygen Saturation 100% 07/20/2024 1:23 PM CONSTRUCTION PLANT OPERATOR Inhaled Oxygen Concentration - - Weight 66.3 kg (146 lb 3.2 oz) 07/20/2024 1:23 P M CONSTRUCTION PLANT OPERATOR Height 158.5 cm (5' 2.4 ) 07/20/2024 1:23 PM CONSTRUCTION PLANT OPERATOR Body Mass Index 26.4 07/20/2024 1:23 PM CONSTRUCTION PLANT OPERATOR Procedures * ESTRADIOL(Performed 07/20/2024) Performed for Abnormal uterine bleeding (AUB) * FSH + LH PANEL(Performed 07/20/2024) Performed for Abnormal uterine bleeding (AUB) * PROLACTIN(Performed 07/20/2024) Performed for Abnormal uterine bleeding (AUB) * IRON + TIBC + FERRITIN(Performed 07/20/2024) Performed for Abnormal uterine bleeding (AUB) * CBC W/O DIFFERENTIAL(Performed 07/20/2024) Performed for Abnormal uterine bleeding (AUB) * TSH REFLEX FREE T4(Performed 07/20/2024) Performed for Abnormal uterine bleeding (AUB) * CHLAMYDIA + GC + TRICH DNA AMPL(Performed 07/20/2024) * URINALYSIS REFLEX TO MICROSCOPIC NO CULTURE(Performed 07/19/2024) * HCG BLOOD QUALITATIVE(Performed 07/19/2024) * CBC W AUTO DIFFERENTIAL(Performed 07/19/2024) * COMPREHENSIVE METABOLIC PANEL(Performed 07/19/2024) * XR CHEST 1VW PORTABLE(Performed 04/08/2024) Performed [...] 25-HYDROXY(Performed 02/17/2017) Performed for Encounter for routine and child vision and hearing testing * [...] * LEAD BLOOD(Performed 01/24/2009) Performed for Routine or Child Health Check * HGB HCT PANEL(Performed 01/24/2009) Performed for Routine or Child Health Check Results * (ABNORMAL) IRON + TIBC + FERRITIN (07/20/2024 2:06 PM CONSTRUCTION PLANT OPERATOR) TIBC 388 250 - 450 ug/dL [facility] INSURANCE BILL UIBC 349 131 - 425 ug/dL [facility] INSURANCE BILL Iron 39 27 - 159 ug/dL [facility] INSURANCE BILL Iron Saturation 10(L) 15 - 55 % [facility] INSURANCE BILL Ferritin 17 15 - 77 ng/mL [facility] INSURANCE BILL Blood BLOOD SPECIMEN / Unknown 07/20/2024 2:06 PM CONSTRUCTION PLANT OPERATOR 07/20/2024 Narrative [facility] INSURANCE BILL - 07/21/2024 7:09 AM CONSTRUCTION PLANT OPERATOR Performed at: ??01 - [address] ??[id number] Autocad: Dillon Aguirre PhD, Phone: ??[phone] Jeremie Perez MD LAB - CHEMISTRY ORD ERABLES [facility] INSURANCE BILL [address] [place] [address] * TSH REFLEX FREE T4 (07/20/2024 2:06 PM CONSTRUCTION PLANT OPERATOR) TSH 1.180 0.450 - 4.500 uIU/mL [facility] INSURANCE BILL Blood BLOOD SPECIMEN / Unknown 07/20/2024 2:06 PM CONSTRUCTION PLANT OPERATOR 07/20/2024 Narrative [facility] INSURANCE BILL - 07/21/2024 8:13 AM CONSTRUCTION PLANT OPERATOR Performed at: ??01 - [facility] ??[id number] Autocad: Dillon Aguirre PhD, Phone: ??[phone] Jeremie Perez MD LAB - CHEMISTRY ORD ERABLES Performing Organization Address [facility] Co de Phone Number [facility] INSURANCE BILL [address] [place] [address] * PROLACTIN (07/20/2024 2:06 PM CONSTRUCTION PLANT OPERATOR) Only the most recent of2 resultswithin the time period is included. Prolactin 7.5 4.8 - 33.4 ng/mL [facility] INSURANCE BILL Blood BLOOD SPECIMEN / Unknown 07/20/2024 2:06 PM CONSTRUCTION PLANT OPERATOR 07/20/2024 Narrative [facility] INSURANCE BILL - 07/21/2024 7:09 AM CONSTRUCTION PLANT OPERATOR Performed at: ??01 - [facility] [address] ??[id number] Autocad: Dillon Aguirre PhD, Phone: ??[phone] Jeremie Perez MD LAB - CHEMISTRY ORD ERABLES Performing Organization Address City/[facility] Co de Phone Number [facility] INSURANCE BILL [address] [place] [address] * ESTRADIOL (07/20/2024 2:06 PM CONSTRUCTION PLANT OPERATOR) Estradiol 56.0 pg/mL [facility] INSURANCE BILL Comment: ? Adult Female ? Range ?Follicular phase ? 12.5 - 166.0 ?Ovulation phase ?85.8 - 498.0 ?Luteal phase ? 43.8 - 211.0 ?Postmenopausal ? <6.0 - ??54.7 ?1st trimester ? 215.0 - >4300.0 Akhil ECLIA methodology Blood BLOOD SPECIMEN / Unknown 07/20/2024 2:06 PM CONSTRUCTION PLANT OPERATOR 07/20/2024 Narrative [facility] INSURANCE BILL - 07/21/2024 7:09 AM CONSTRUCTION PLANT OPERATOR Performed at: ??01 - [facility] [address] [place] [address] ??[id number] Autocad: Dillon Aguirre PhD, Phone: ??[phone] Jeremie Perez MD LAB - CHEMISTRY ORD ERABLES [facility] INSURANCE BILL [address] [place] [address] * (ABNORMAL) CBC W/O DIFFERENTIAL (07/20/2024 2:06 PM CONSTRUCTION PLANT OPERATOR) WBC 3.1(L) 3.4 - 10.8 x10E3/uL [facility] [...] BLOOD SPECIMEN / Unknown 07/20/2024 2:06 PM CONSTRUCTION PLANT OPERATOR 07/20/2024 Narrative [facility] INSURANCE BILL - 07/21/2024 7:09 AM CONSTRUCTION PLANT OPERATOR Performed at: ??01 - [facility] [address] [place] [address] ??[id number] Autocad: Dillon Aguirre PhD, Phone: ??[phone] Jeremie Perez MD LAB - HEMATOLOGY OR DERABLES Performing Organization Address City/State/[place] Co de Phone Number [facility] INSURANCE BILL [address] [place] [address] * FSH + LH PANEL (07/20/2024 2:06 PM CONSTRUCTION PLANT OPERATOR) LH 27.4 mIU/mL [facility] INSURANCE BILL Comment: [...] BLOOD SPECIMEN / Unknown 07/20/2024 2:06 PM CONSTRUCTION PLANT OPERATOR 07/20/2024 Narrative [facility] INSURANCE BILL - 07/21/2024 7:09 AM CONSTRUCTION PLANT OPERATOR Performed at: ??01 - [facility] [address] [place], [place] ??[id number] Autocad: Dillon Aguirre PhD, Phone: ??[phone] Jeremie Perez MD LAB - CHEMISTRY ORD ERABLES Performing Organization Address City/State/[place] Co de Phone Number [facility] INSURANCE BILL [address] [place] [address] * CHLAMYDIA + GC + TRICH DNA AMPL (07/20/2024 12:00 AM CONSTRUCTION PLANT OPERATOR) Only the most recent of2 resultswithin the time period is included. Chlamydia trachomatis AUGUSTO Negative Negative [facility] ACCOUNT BILL GC DNA Probe Negative Negative [facility] ACCOUNT BILL Trichomonas vaginalis by AUGUSTO Negative Negative [facility] ACCOUNT BILL 07/20/2024 07/20/2024 Narrative [facility] ACCOUNT BILL - 07/21/2024 9:07 PM CONSTRUCTION PLANT OPERATOR Performed at: ??01 - Lab[address], [place] ??[id number] Autocad: Clara Crawford MD, Phone: ??[phone] Jeremie Perez MD LAB - MICROBIOLOGY ORDERABLES [facility] [address]OUNT [address] [place] [address] * (ABNORMAL) URINALYSIS REFLEX TO MICROSCOPIC NO CULTURE (07/19/2024 4:20 PM CONSTRUCTION PLANT OPERATOR) Color UA Yellow Yellow, Straw 07/19/2024 5:04 PM CONSTRUCTION PLANT OPERATOR [facility] Clarity UA Clear Clear 07/19/2024 5:04 PM CONSTRUCTION PLANT OPERATOR [facility] Glucose UA Normal Normal 07/19/2024 5:04 PM CONSTRUCTION PLANT OPERATOR [facility] Bilirubin UA Negative Negative 07/19/2024 5:04 PM CONSTRUCTION PLANT OPERATOR [facility] Ketone UA Negative Negative 07/19/2024 5:04 PM CONSTRUCTION PLANT OPERATOR [facility] Specific [place] UA 1.032(H) 1.005 - 1.030 07/19/2024 5:04 PM CONSTRUCTION PLANT OPERATOR [facility] Blood UA 3+(A) Negative 07/19/2024 5:04 PM CONSTRUCTION PLANT OPERATOR [facility] pH UA 7.0 5.0 - 9.0 pH 07/19/2024 5:04 PM CONSTRUCTION PLANT OPERATOR [facility] Protein UA Trace(A) Negative 07/19/2024 5:04 PM CONSTRUCTION PLANT OPERATOR [facility] Urobilinogen UA 2.0(A) Normal mg/dL 025 5:04 PM CONSTRUCTION PLANT OPERATOR [facility] Nitrite UA Negative Negative 07/19/2024 5:04 PM CONSTRUCTION PLANT OPERATOR [facility] Leukocyte UA Negative Negative 07/19/2024 5:04 PM CONSTRUCTION PLANT OPERATOR [facility] RBC UA >100(A) 0 - 5 # /hpf 07/19/2024 5:04 PM CONSTRUCTION PLANT OPERATOR [facility] WBC UA 0-5 0 - 5 # /hpf 07/19/2024 5:04 PM CONSTRUCTION PLANT OPERATOR [facility] Bacteria UA None Seen None Seen 07/19/2024 5:04 PM CONSTRUCTION PLANT OPERATOR [facility] Squamous Epithelial Cells 0-2 0 - 5 /hpf 07/19/2024 5:04 PM CONSTRUCTION PLANT OPERATOR [facility] Mucus UA 2+ /LPF 07/19/2024 5:04 PM CONSTRUCTION PLANT OPERATOR [facility] Urine URINE SPECIMEN OBTAINED BY CLEAN CATCH PROCEDURE / Unknown Collection / Unknown 07/19/2024 4:20 PM CONSTRUCTION PLANT OPERATOR 07/19/2024 4:51 PM CONSTRUCTION PLANT OPERATOR Narrative [facility] - 07/19/2024 5:04 PM CONSTRUCTION PLANT OPERATOR Ruchi Chappell COPPER ETCHER-TITLE CAMERA OPERATOR LAB - URINALYSIS ORDERABLES [facility] [address] [place] [address] * (ABNORMAL) CBC W AUTO DIFFERENTIAL (07/19/2024 4:18 PM CONSTRUCTION PLANT OPERATOR) Only the most recent of3 resultswithin the time period is included. WBC 2.9(L) 4.0 - 10.7 x10E9/L 07/19/2024 4:56 PM [facility] RBC Count 4.11 3.90 - 5.20 x10E12/L 07/19/2024 4:56 PM [facility] Hemoglobin 11.1(L) 11.9 - 15.8 g/dL 07/19/2024 4:56 PM [facility] Hematocrit 34.0(L) 34.8 - 46.1 % 07/19/2024 4:56 PM [facility] MCV 82.7 80.0 - 98.0 fL 07/19/2024 4:56 PM [facility] MCH 27.0 26.7 - 33.6 pg 07/19/2024 4:56 PM [facility] MCHC 32.6 31.7 - 36.3 g/dL 07/19/2024 4:56 PM [facility] RDW-CV 11.7 11.3 - 14.8 % 07/19/2024 4:56 PM [facility] Platelet Count 345 150 - 420 x10E9/L 07/19/2024 4:56 PM [facility] MPV 10.3 7.8 - 11.4 fL 07/19/2024 4:56 PM [facility] Neutrophil % 44.6 41.0 - 74.0 % 07/19/2024 4:56 PM [facility] Lymphocyte % 44.0 17.0 - 47.0 % 07/19/2024 4:56 PM CONSTRUCTION PLANT OPERATOR [facility] Monocyte % 8.6 3.0 - 11.0 % 07/19/2024 4:56 PM CONSTRUCTION PLANT OPERATOR [facility] Eosinophil % 1.4 0.0 - 7.0 % 07/19/2024 4:56 PM CONSTRUCTION PLANT OPERATOR [facility] Basophil % 1.4 0.0 - 1.6 % 07/19/2024 4:56 PM CONSTRUCTION PLANT OPERATOR [facility] Immature Granulocytes % 0.0 0.0 - 1.0 % 07/19/2024 4:56 PM [facility] Neutrophil Absolute 1.30(L) 1.60 - 7.50 x10E9/L 07/19/2024 4:56 PM CONSTRUCTION PLANT OPERATOR [facility] Lymphocyte Absolute 1.28 1.00 - 4.40 x10E9/L 07/19/2024 4:56 PM [facility] Monocyte Absolute 0.25 0.15 - 1.00 x10E9/L 07/19/2024 4:56 PM [facility] Eosinophil Absolute 0.04 0.00 - 0.60 x10E9/L 07/19/2024 4:56 PM [facility] Basophil Absolute 0.04 0.00 - 0.13 x10E9/L 07/19/2024 4:56 PM [facility] Blood BLOOD SPECIMEN / Unknown Venipuncture / Unknown 07/19/2024 4:18 PM CONSTRUCTION PLANT OPERATOR 07/19/2024 4:50 PM CONSTRUCTION PLANT OPERATOR Ruchi Chappell COPPER ETCHER-TITLE CAMERA OPERATOR LAB - HEMATOLOGY ORDERABLES Performing Organization Address City/State/[place] Co de Phone Number [facility] [address] [place] [address] * (ABNORMAL) COMPREHENSIVE METABOLIC PANEL (07/19/2024 4:18 PM CONSTRUCTION PLANT OPERATOR) Only the most recent of3 resultswithin the time period is included. [facility] Glucose 93 70 - 99 mg/dL 07/19/2024 5:15 PM CONSTRUCTION PLANT OPERATOR [facility] Sodium 139 136 - 145 mmol/L 07/19/2024 5:15 PM [facility] Potassium 5.7(H) 3.5 - 5.1 mmol/L 07/19/2024 5:15 PM [facility] Comment:Specimen is Moderate ly Hemolyzed. This potassium result may be falsely elevated. Chloride 109(H) 98 - 107 mmol/L 07/19/2024 5:15 PM [facility] CO2 20(L) 22 - 29 mmol/L 07/19/2024 5:15 PM [facility] Calcium 10.0 8.4 - 10.4 mg/dL 07/19/2024 5:15 PM [facility] Anion Gap 10 6 - 16 mmol/L 07/19/2024 5:15 PM [facility] BUN 15 5.3 - 18.7 mg/dL 07/19/2024 5:15 PM [facility] Creatinine 1.05 0.57 - 1.11 mg/dL 07/19/2024 5:15 PM [facility] Alkaline Phosphatase 68 40 - 150 U/L 07/19/2024 5:15 PM [facility] ALT 15 0 - 55 U/L 07/19/2024 5:15 PM [facility] AST 36(H) 5 - 34 U/L 07/19/2024 5:15 PM [facility] Comment:Specimen is Moderate ly Hemolyzed. This AST result may be falsely elevated. Protein Total 8.5(H) 6.4 - 8.3 gm/dL 07/19/2024 5:15 PM [facility] Comment:Specimen is Moderate ly Hemolyzed. This total protein result may be falsely elevated. Albumin 4.5 3.4 - 5.0 gm/dL 07/19/2024 5:15 PM [facility] Bilirubin Total 0.3 0.2 - 1.2 mg/dL 07/19/2024 5:15 PM [facility] eGFR by CKD-EPI 78(L) >=90 mL/min/1.7 3 m2 07/19/2024 5:15 PM [facility] Blood BLOOD SPECIMEN / Unknown Venipuncture / Unknown 07/19/2024 4:18 PM CONSTRUCTION PLANT OPERATOR 07/19/2024 4:51 PM CONSTRUCTION PLANT OPERATOR Ruchi Chappell COPPER ETCHER-TITLE CAMERA OPERATOR LAB - CHEMISTRY O RDERABLES [facility] [id number] [place] [address] * HCG BLOOD QUALITATIVE (07/19/2024 4:18 PM CONSTRUCTION PLANT OPERATOR) Only the most recent of2 resultswithin the time period is included. HCG Qual Serum Negative Negative 07/19/2024 5:11 PM CONSTRUCTION PLANT OPERATOR [facility] Blood BLOOD SPECIMEN / Unknown Venipuncture / Unknown 07/19/2024 4:18 PM CONSTRUCTION PLANT OPERATOR 07/19/2024 4:51 PM CONSTRUCTION PLANT OPERATOR Narrative [facility] - 07/19/2024 5:11 PM CONSTRUCTION PLANT OPERATOR Specimens containing human anti-mouse antibodies may exhibit false positive or false negative results. If qualitative interpretation is inconsistent with clinical evaluation, consider confirmation by an alternative hCG method. Ruchi Chappell COPPER ETCHER-TITLE CAMERA OPERATOR LAB - CHEMISTRY O RDERABLES [facility] [address] [place] [address] * XR CHEST 1VW PORTABLE (04/08/2024 11:51 [...] Potter MD DIAGNOSTIC IMAGING O RDERABLES * (ABNORMAL) BASIC METABOLIC PANEL (CALCIUM TOTAL) (04/08/2024 11:21 PM CDT) Only the most recent of2 resultswithin the time period is included. Glucose 113(H) 70 - 99 mg/dL 04/08/2024 11:50 PM CDT [facility] Sodium 138 136 - 145 mmol/L 04/08/2024 11:50 PM CDT [facility] Potassium 3.8 3.5 - 5.1 mmol/L 04/08/2024 11:50 PM CDT [facility] Chloride 107 98 - 107 mmol/L 04/08/2024 11:50 PM CDT [facility] CO2 23 22 - 29 mmol/L 04/08/2024 11:50 PM CDT [facility] Calcium 9.4 8.4 - 10.4 mg/dL 04/08/2024 11:50 PM CDT [facility] Anion Gap 8 6 - 16 mmol/L 04/08/2024 11:50 PM CDT [facility] BUN 12 5.3 - 18.7 mg/dL 04/08/2024 11:50 PM CDT [facility] Creatinine 0.84 0.57 - 1.11 mg/dL 04/08/2024 11:50 PM CDT [facility] eGFR by CKD-EPI >90 >=90 mL/min/1.7 3 m2 04/08/2024 11:50 PM CDT [facility] Blood BLOOD SPECIMEN / Unknown Venipuncture / Unknown 04/08/2024 11:21 PM CDT 04/08/2024 11:28 PM CDT Ever Potter MD LAB - CHEMISTRY [place] [facility] Organization Address City/State/ZIP Co de Phone Number [facility] [address] [place] [address] * MAGNESIUM BLOOD (04/08/2024 11:21 PM CDT) Only the most recent of2 resultswithin the time period is included. Magnesium 1.9 1.7 - 2.3 mg/dL 04/08/2024 11:50 PM CDT [facility] Blood BLOOD SPECIMEN / Unknown Venipuncture / Unknown 04/08/2024 11:21 PM CDT 04/08/2024 11:28 PM CDT Ever Potter MD LAB - CHEMISTRY [place] Organization Address City/State/ZIP Co de Phone Number [facility] [address] [place] [address] * MRI TIBIA FIBULA LEFT WO CONT [...] masses. Procedure Note Brooklyn Corley MD - 09/29/2023 PROCEDURE: MRI TIBIA FIBULA RIGHT WO CONT, [...] ANTIGEN - POCT INTER (09/09/2022 11:37 AM CONSTRUCTION PLANT OPERATOR) SARS-CoV-2 Ag Negative Negative 09/09/2022 11:45 AM CONSTRUCTION PLANT OPERATOR [facility] Influenza A Antigen Negative Negative 09/09/2022 11:45 AM CONSTRUCTION PLANT OPERATOR [facility] Influenza B Antigen Positive(A) Negative 09/09/2022 11:45 AM CONSTRUCTION PLANT OPERATOR [facility] Microbiology SPECIMEN FROM NASAL FOSSAE / Unknown 09/09/2022 11:37 AM CONSTRUCTION PLANT OPERATOR 09/09/2022 11:45 AM CONSTRUCTION PLANT OPERATOR Narrative [facility] - 09/09/2022 11:45 AM CONSTRUCTION PLANT OPERATOR SARS-CoV-2 antigen testing is authorized for use [...] MD LAB - POINT OF CARE ORDERABLES [facility] [address] [phone] * CT CERVICAL SPINE NON CONTRAST - [...] DATE/TIME OF EXAM: ??04/16/2022 3:40 PM, LOCATION ??[facility] INDICATION: R56.9: Unspecified convulsions ([facility]/HCC) ADDITIONAL CLINICAL INFORMATION: Ordering Provider Reason For [...] CONTRAST,DATE/TIME OF EXAM: 04/16/2022 3:40 PM, LOCATION [facility] INDICATION: R56.9: Unspecified convulsions ([facility]/HCC) ADDITIONAL CLINICAL INFORMATION: Ordering Provider Reason For [...] MD on 04/16/2022 4:35 PM Zakia Costa WILLY-Howie CT ORDERABLES * CT HEAD NON CONTRAST [...] DATE/TIME OF EXAM: ??04/16/2022 3:40 PM, LOCATION ??[facility] INDICATION: R56.9: Unspecified convulsions ([facility]) ADDITIONAL CLINICAL INFORMATION: Ordering Provider Reason For [...] CONTRAST,DATE/TIME OF EXAM: 04/16/2022 3:40 PM, LOCATION [facility] INDICATION: R56.9: Unspecified convulsions ([facility]/HCC) ADDITIONAL CLINICAL INFORMATION: Ordering Provider Reason For [...] may alter the peak level. Contact the [facility] [place] [facility] at or reserved for healthcare professionals to assist you in evaluating potentially toxic acetaminophen levels. Zakia Hassan Igor RUSSELL LAB - CHEMISTRY [place] [facility] Performing Organization Address [facility]/[place] Co de Phone Number [facility] [address] [place], [place] [phone] * TROPONIN I (04/16/2022 2:02 PM CDT) Troponin I <0.010 <0.038 ng/mL 04/16/2022 2:37 PM CDT [facility] Blood BLOOD SPECIMEN / Unknown Venipuncture / Unknown 04/16/2022 2:02 PM CDT 04/16/2022 2:10 PM CDT Zakia Hassan Igor RUSSELL LAB - CHEMISTRY [place] [facility] Performing Organization Address [facility] de Phone Number [facility] [address] [place] [address] * HCG BETA BLOOD QUANTITATIVE (04/16/2022 2:02 PM CDT) hCG Quantitative <1.20 mIU/mL 04/16/20 2:56 PM CDT [facility] Blood BLOOD SPECIMEN / Unknown Venipuncture / Unknown 04/16/2022 2:02 PM CDT 04/16/2022 2:10 PM CDT Narrative [facility] - 04/16/2022 2:56 PM CDT [...] Costa PA-C LAB - CHEMISTRY [place] [facility] [address] [place] [address] * LACTIC ACID BLOOD (04/16/2022 2:02 PM CDT) Lactic Acid 1.76 <=2 mmol/L 04/16/2022 2:28 PM CDT [facility] Blood BLOOD SPECIMEN / Unknown Venipuncture / Unknown 04/16/2022 2:02 PM CDT 04/16/2022 2:11 PM CDT Zakia Costa PA-C LAB - CHEMISTRY [place] [facility] Performing Organization Address City/[facility]/ZIP Co de Phone Number [facility] [address] [place] [address] * EKG 12-LEAD (04/16/2022 1:59 PM CDT) Only the most recent of2 resultswithin the time period is included. Ventricular Rate 79 BPM [facility] Atrial Rate 79 BPM [facility] P-R Interval 104 ms [facility] QRS Duration ms 74 ms [facility] Q-T Interval ms 376 ms [facility] QTC Calculation (Bezet) 431 ms [facility] Calculated P [place] 27 degrees [facility] Calculated R [place] 54 degrees [facility] Calculated T [place] 22 degrees [facility] Interpretation EKG When compared with ECG of 21-DEC-2014 11:10,the significant change is the development of nonspecific T wave changes. ??Normal sinus rhythm persists. Confirmed by MD Veronica Jamie ([id number]) on 04/17/2022 1:28:05 PM [facility] 04/16/2022 1:59 PM CDT 04/17/2022 1:28 PM CDT Zakia Costa PA-C ECG ORDERABLES Performing Organization Address [facility]/ZIP Co de Phone Number [facility] * HCG URINE QUALITATIVE - POINT OF CARE (AMB) STL (04/14/2022) HCG Qual Urine Negative Negative HCG Urine QC NEG negative NEGATIVE - POSITIVE HCG Urine QC POS positive NEGATIVE - POSITIVE Expiration Date 2023-06-11 Lot # [id number] Urine URINE / Unknown 04/14/2022 Geno Perea [employer] [facility] LAB - POINT OF CA RE ORDERABLES * HEMOGLOBIN A1C (11/05/2020 4:01 PM CDT) Hemoglobin A1c 5.2 4.2 - 5.6 % [facility] INSURANCE BILL Comment: AVERAGE GLUCOSE MG/DL BLOOD ??103 ?mg/dL The following cutoff levels are recommended by [employer]. A1c ??> 6.5% : [...] Resulting Agency Comment Lab Testing performed at: [facility] [address] ?? Bubba RHODES [id number] Va Olivo MD LAB - CHEMISTRY SALIMA MOORE [facility] INSURANCE BILL [address] [place] [address] * (ABNORMAL) LIPID PROFILE (11/05/2020 4:01 PM [...] Resulting Agency Comment Lab Testing performed at: [facility] [address] ?? Bubba RHODES [id number] Va Olivo MD LAB - CHEMISTRY SALIMA MOORE Performing Organization Address City/[facility] de Phone Number [facility] INSURANCE BILL [address] [place] [address] * (ABNORMAL) VITAMIN D (25-HYDROXY) (02/17/2017 12:45 PM CDT) Vitamin D, 25 Hydroxy 9.59(L) 30 - 100 ng/mL 02/17/2017 5:00 PM CDT [facility] Blood BLOOD SPECIMEN / Unknown Venipuncture / Unknown 02/17/2017 12:45 PM CDT 02/17/2017 12:45 PM CDT Narrative [facility] - 02/17/2017 5:00 PM CDT Vitamin D Status: ?Deficiency ? <20 ? ng/mL ?Insufficiency ?? 20-30 ??ng/mL ?Sufficiency ? 30-100 ng/mL ?Toxicity ? >100 ?ng/mL Kaci Cheatham APRN-TITLE [employer] OPERATOR LAB - CHEMISTRY OR DERABLES Performing Organization Address [facility] de Phone Number [facility] [address] [place] [address] * FERRITIN (02/17/2017 12:45 PM CDT) Ferritin 40 10 - 291 ng/mL 02/17/2017 1:05 PM CDT [facility] Blood BLOOD SPECIMEN / Unknown Venipuncture / Unknown 02/17/2017 12:45 PM CDT 02/17/2017 12:45 PM CDT Kaci Cheatham COPPER ETCHER-TITLE CAMERA OPERATOR LAB - CHEMISTRY OR DERABLES [facility] [address] [place] [address] * (ABNORMAL) CBC W MANUAL DIFFERENTIAL (12/21/2014 10:37 AM CDT) WBC 3.6(L) 4.5 - 14.5 x10^9/L 12/21/2014 11:17 AM CDT [facility] RBC 4.89 4.00 - 5.20 x10^12/L 12/21/2014 11:17 AM CDT [facility] Hemoglobin 12.4 11.5 - 15.5 gm/dL 12/21/2014 11:17 AM CDT [facility] Hematocrit 37.3 35.0 - 45.0 % 12/21/2014 11:17 AM CDT [facility] MCV 76.3(L) 77.0 - 95.0 fl 12/21/2014 11:17 AM CDT [facility] MCH 25.4 25.0 - 33.0 pg 12/21/2014 11:17 AM CDT [facility] MCHC 33.2 31.0 - 37.0 gm/dL 12/21/2014 11:17 AM CDT [facility] RDW-CV 12.2 11.5 - 14.0 % 12/21/2014 11:17 AM CDT [facility] MPV 10.4(H) 6.0 - 9.5 fl 12/21/2014 11:17 AM CDT [facility] Platelet Count 307 100 - 400 x10^9/L 12/21/2014 11:17 AM CDT [facility] Blood BLOOD SPECIMEN / Unknown Lab Venipuncture / Unknown 12/21/2014 10:37 AM CDT 12/21/2014 11:11 AM CDT Rika Zaragoza COPPER ETCHER-TITLE CAMERA OPERATOR LAB - HEMATOLO GY ORDERABLES [facility] [address] [place] [address] * (ABNORMAL) DIFFERENTIAL MANUAL (12/21/2014 10:37 AM CDT) WBC Auto 3.6(L) 4.5 - 14.5 x10^9/L 12/21/2014 12:10 PM CDT [facility] WBC Corrected 4.5 - 14.5 x10^9/L 12/21/2014 12:10 PM CDT [facility] nRBC /100 WBC 12/21/2014 12:10 PM CDT [facility] Neutrophil % Manual 29 24 - 66 % 12/21/2014 12:10 PM CDT [facility] Lymphocytes % Manual 59 22 - 61 % 12/21/2014 12:10 PM CDT [facility] Monocytes % Manual 6 3 - 15 % 12/21/2014 12:10 PM CDT [facility] Eosinophils % Manual 5 0 - 10 % 12/21/2014 12:10 PM CDT [facility] Basophils % Manual 1 % 12/21/2014 12:10 PM CDT [facility] Cells Counted 100 # cells 12/21/2014 12:10 PM CDT [facility] RBC Morphology Normal 12/21/2014 12:10 PM CDT [facility] WBC Morph Normal 12/21/2014 12:10 PM CDT [facility] Platelet Estimation Normal 12/21/2014 12:10 PM CDT [facility] Blood BLOOD SPECIMEN / Unknown Lab Venipuncture / Unknown 12/21/2014 10:37 AM CDT 12/21/2014 11:11 AM CDT Rika Zaragoza APRN-[facility] LAB - HEMATOLO GY ORDERABLES Performing Organization Address [facility] de Phone Number [facility] [address] [place] [address] * TSH (12/21/2014 10:37 AM CDT) TSH 2.14 0.358 - 3.740 uIU/mL 12/21/2014 11:40 AM CDT [facility] Blood BLOOD SPECIMEN / Unknown Lab Venipuncture / Unknown 12/21/2014 10:37 AM CDT 12/21/2014 11:11 AM CDT Rika Zaragoza COPPER ETCHER-TITLE CAMERA OPERATOR LAB - CHEMISTR Y ORDERABLES Performing Organization Address City/[facility] de Phone Number [facility] [address] [place] [address] * T4 TOTAL (12/21/2014 10:37 AM CDT) T4 Total 12.0 4.7 - 13.3 ug/dL 12/21/2014 11:46 AM CDT [facility] Blood BLOOD SPECIMEN / Unknown Lab Venipuncture / Unknown 12/21/2014 10:37 AM CDT 12/21/2014 11:11 AM CDT Rika Zaragoza COPPER ETCHER-TITLE CAMERA OPERATOR LAB - CHEMISTR Y ORDERABLES Performing Organization Address [facility] de Phone Number [facility] [address] [place] [address] * LEAD BLOOD (01/24/2009 11:50 AM CDT) Pathologist [facility] Lead Blood 3 mcg 0 - 14 ug/dl [facility] Specimen Type Venous [facility] BLOOD SPECIMEN / Unknown 01/24/2009 11:50 AM CDT Narrative [facility] - 01/30/2009 9:44 AM CDT 1 Resulting Agency Comment Performed By [facility] ? [address], [address] ? [place] [address] Hannah Barron MD LAB - CHEMISTRY ORDE RABJOHN Performing Organization Address [facility] de Phone Number [facility] [address] [place] [address] * HGB HCT PANEL (01/24/2009 11:50 AM CDT) Pathologist [facility] Hemoglobin 11.9 10.0 - 15.0 gm/dl [facility] Hematocrit 35.4 30.0 - 45.0 % [facility] BLOOD SPECIMEN / Unknown 01/24/2009 11:50 AM CDT Narrative [facility] - 01/24/2009 12:01 PM CDT FAX TO [phone] Hannah Barron MD LAB - HEMATOLOGY ORD ERABLES [facility] [address] [place] [address] Care Teams Cemetery Workers Supervisor Relationship Specialty Start Date End Date Va Olivo MD PCP - General Pediatrics 12/08/17
--- OUTSIDE RECORDS SUMMARY | 2024-07-22 08:24 | XMS_ITS | Encounter Summary ---
Author Organization [facility] Health Address [address] [facility] [place] [address] Care Team Providers Care Assurance Specialist Name Role Phone Va Olivo MD Primary Care Provider [phone] Encounter Details Date Type Department Care Team [...] st Contact Info) Description 07/27/2024 12:50 PM GRAIN CLEANER AND TRANSFER OPERATOR Appointment [facility] Health Imaging Services - Ultrasound [address] [place] [address] [place] [address] [place] [address] 08/03/2024 1:00 PM GRAIN CLEANER AND TRANSFER OPERATOR Office Visit [facility] - WEB APPLICATION DEV SPECIALIST [address] [place] [phone] [place] [address] [place] [address] documented as of this encounter Goals Goal Patient Goal Type Associated Problems Recent Progress Patient-Stated? Author Yearly PCP visit Lifestyle Aster Willard, RN Note: Come into office for yearly wcc. Take recommended medication(s) Lifestyle No Aster Garnica, RN documented as of this encounter Visit Diagnoses Not on filedocumented in this encounter Care Teams Assurance Specialist Relationship Specialty Start Date End Date Va Olivo MD PCP - General Pediatrics 12/08/17 documented as of this encounter
--- OUTSIDE RECORDS SUMMARY | 2024-07-22 08:24 | XMS_ITS | Encounter Summary ---
Author Organization [facility] Health Address [address] [facility] [place] [address] Care Team Providers Care Medart Operator Name Role Phone Va Olivo MD [...] Contact Info) Description 07/27/2024 12:50 PM TEACHER ASSISTANT Appointment [facility] Health Imaging Services - Ultrasound [address] [facility] [address] [place] [address] [place] [address] [place] [address] 08/03/2024 1:00 PM TEACHER ASSISTANT Office Visit [facility] - LEACH RUNNER [address] [place] [address] [place] [address] [place], [place] [id number] documented as of this encounter Goals Goal Patient Goal Type Associated Problems Recent Progress Patient-Stated? Author Yearly PCP visit Lifestyle Aster Willard, RN Note: Come into office for yearly wcc. Take recommended medication(s) Lifestyle Aster Willard, RN documented as of this encounter Visit Diagnoses Not on filedocumented in this encounter Care Teams Medart Operator Relationship Specialty Start Date End Date Va Olivo MD PCP - General Pediatrics 12/08/17 documented as of this encounter
--- OUTSIDE RECORDS SUMMARY | 2024-07-22 08:24 | XMS_ITS | Encounter Summary ---
Author Organization [facility] Address [address] [place] [address] Care Team Providers Care Weed Eradicator Name Role Phone Va Olivo MD Primary Care Provider [phone] Reason for Visit * Reason Onset Date Comments MEDICATION REFILL 09/09/2022 Encounter Details Date Type Department Care Team (Late st Contact Info) Description 09/09/2022 Refill [facility] Pediatrics [address] [place] [address] Va Olivo MD [address] [facility] [phone] [place] [address] MEDICATION REFILL Social History Tobacco [...] st Contact Info) Description 07/27/2024 12:50 PM HOUSE MOVER SUPERVISOR Appointment [facility] Imaging Services - [facility]trasound [address] [facility] [address] [place] [address] [place] [address] [place] [address] 08/03/2024 1:00 PM HOUSE MOVER SUPERVISOR Office Visit [facility] - ADMIN SECRETARY [address] [place] [phone] [place] [address] [place] [address] documented as of this encounter Goals Goal Patient Goal Type Associated Problems Recent Progress Patient-Stated? Author Yearly PCP visit Lifestyle No Aster Garnica, RN Note: Come into office for yearly wcc. Take recommended medication(s) Lifestyle No Aster Garnica RN documented as of this encounter Visit Diagnoses Not on filedocumented in this encounter Care Teams Weed Eradicator Relationship Specialty Start Date End Date Va Olivo MD PCP - General Pediatrics 12/08/17 documented as of this encounter
--- OUTSIDE RECORDS SUMMARY | 2024-07-22 08:24 | XMS_ITS | Encounter Summary ---
Author Organization [facility] Health Address [address] [facility] [place] [address] Care Team Providers Care Collection Systems Foreman Name Role Phone Va Olivo MD Primary Care Provider [phone] Encounter Details Date Type Department Care Team [...] st Contact Info) Description 07/27/2024 12:50 PM CATTLE BRANDER Appointment [facility] Health Imaging Services - Ultrasound [address] [place] [address] [place] [address] [place] [address] 08/03/2024 1:00 PM CATTLE BRANDER Office Visit [facility] - NIGHT STOCKER [address] [place] [phone] [place] [address] [place] [address] documented as of this encounter Goals Goal Patient Goal Type Associated Problems Recent Progress Patient-Stated? Author Yearly PCP visit Lifestyle Aster Willard, RN Note: Come into office for yearly wcc. Take recommended medication(s) Lifestyle No Aster Garnica, RN documented as of this encounter Visit Diagnoses Not on filedocumented in this encounter Care Teams Collection Systems Foreman Relationship Specialty Start Date End Date Va Olivo MD PCP - General Pediatrics 12/08/17 documented as of this encounter
--- OUTSIDE RECORDS SUMMARY | 2024-07-22 08:24 | XMS_ITS | Encounter Summary ---
Author Organization [facility] Address [address] [facility] [place] [address] Care Team Providers Care Rivet Driver Name Role Phone Va Olivo MD Primary Care Provider [phone] Encounter Details Date Type Department Care Team (Late st Contact Info) Description 04/29/2022 Orders Only [facility] Pediatrics [address] [place] [address] Va Olivo MD [address] [facility] [phone] [place] [address] Mild intermittent asthma without complication [...] st Contact Info) Description 07/27/2024 12:50 PM SHUTTLE OPERATOR Appointment [facility] Imaging Services - Ultrasound [address] [facility] [address] [place] [address] [place] [address] [place] [address] 08/03/2024 1:00 PM SHUTTLE OPERATOR Office Visit [facility] - GUIDE CHANGER [address] [place] [address] [place] [address] [place] [address] documented as of this encounter Goals Goal Patient Goal Type Associated Problems Recent Progress Patient-Stated? Author Yearly PCP visit Lifestyle No Aster Garnica, RN Note: Come into office for yearly wcc. Take recommended medication(s) Lifestyle No Aster Garnica, RN documented as of this encounter Visit Diagnoses Diagnosis Mild intermittent asthma without complication (HCC) Unspecified asthma documented in this encounter Care Teams Rivet Driver Relationship Specialty Start Date End Date Va Olivo MD PCP - General Pediatrics 12/08/17 documented as of this encounter
--- OUTSIDE RECORDS SUMMARY | 2024-07-22 08:24 | XMS_ITS | Encounter Summary ---
Author Organization [facility] Address [address] [facility] [place] [address] Care Team Providers Care Catering Staff Member Name Role Phone Va Olivo MD Primary Care Provider [phone] Reason for Referral * Neurology (Routine) - Closed Specialty Diagnoses / Procedures Referred By Julia lemus Referred To Contact Electrophysiology Diagnoses Seizure (HCC) Procedures EEG AWAKE AND ASLEEP Jhonatan Nuñez MD [address] [place] [address] Cg Eeg/Emg [address] [place] [address] Referral ID Status Reason Start Date Expiration Date Visits Re quested Visits Authorized [id number] Closed 05/13/2022 05/13/2023 1 1 CLINICAL PROGRAMMER Reason for Visit * Neurology (Routine) - Closed Specialty Diagnoses / Procedures Referred By Julia lemus Referred To Contact Electrophysiology Diagnoses Seizure (HCC) Procedures EEG AWAKE AND ASLEEP Jhonatan Nuñez MD [address] [place] [address] Cg Eeg/Emg [address] [place] [address] Referral ID Status Reason Start Date Expiration Date Visits Re quested Visits Authorized [id number] Closed 05/13/2022 05/13/2023 1 1 Encounter Details Date Type Department Care Team (Latest Contact Info) Description 05/19/2022 10:00 AM SAS CLINICAL PROGRAMMER - 05/19/2022 11:59 PM SAS CLINICAL PROGRAMMER Hospital Encounter [facility] [address] [place] [address] Jhonatan Nuñez MD [address] [place] [address] Discharge Disposition: Home or Self Care [...] Coronavirus/COVID-19? No / Unsure 05/19/2022 9:59 AM SAS CLINICAL PROGRAMMER documented as of this encounter Medications at [...] were not included. Name: Greyson Kevin CSN: [id number] Type: Routine Date of Test: 05/19/2022 Ordering Provider: Jhonatan Nuñez MD PCP: Va Olivo MD Postal Inspector: Bob Nuñez MD Routine EEG Report DESCRIPTION [...] be interpreted. Jhonatan Nuñez MD Pediatric Neurology CLINICAL PROGRAMMER * Valeri Nazario EEG T. - 05/19/2022 11:28 AM CST Outpatient EEG completed. Pt tolerated well. No skin concerns. CLINICAL PROGRAMMER documented in this encounter Plan of Treatment Upcoming Encounters Date Type Department Care Team (Late st Contact Info) Description 07/27/2024 12:50 PM SAS CLINICAL PROGRAMMER Appointment [facility] Imaging Services - Ultrasound [address] [place] [address] [place] [address] [place] [address] 08/03/2024 1:00 PM SAS CLINICAL PROGRAMMER Office Visit [facility] - PULL THROUGH HOOKER [address] [place] [phone] [place] [address] [place] [address] documented as of this encounter Goals Goal Patient Goal Type Associated Problems Recent Progress Patient-Stated? Author Yearly PCP visit Lifestyle Aster Willard, RN Note: Come into office for yearly wcc. Take recommended medication(s) Lifestyle Aster Willard, RN documented as of this encounter Procedures Procedure Name Priority Date/Time Associated Diagnosis Comments EEG AWAKE AND ASLEEP Routine 05/19/2022 10:05 AM SAS CLINICAL PROGRAMMER Seizure (HCC) documented in this encounter Visit Diagnoses Diagnosis Seizure (HCC) Other convulsions documented in this encounter Care Teams Catering Staff Member Relationship Specialty Start Date End Date Va Olivo MD PCP - General Pediatrics 12/08/17 documented as of this encounter
--- OUTSIDE RECORDS SUMMARY | 2024-07-22 08:24 | XMS_ITS | Encounter Summary ---
Author Organization [facility] Address [address] [facility] [facility] [place] [address] Care Team Providers Care Foreclosure Clerk Name Role Phone Va Olivo MD Primary Care Provider Reason for Referral * Evaluate (Urgent) - Closed Specialty Diagnoses / Procedures Referred By Contac t Referred To Contact Diagnoses Syncope and collapse Seizure-like activity (HCC) [place] [id number] [place] [address] [place] [address] [place] [id number] Referral ID Status Reason Start Date Expiration Date V isits Requested Visits Authorized [id number] Closed Specialty Services Required 04/16/2022 04/16/2023 1 1 Reason for Visit * Reason Comments Altered mental status Encounter Details Date Type Department Care Team (Late st Contact Info) Description 04/16/2022 1:27 PM CDT - 04/16/2022 5:11 PM CDT Emergency ER at [facility] hospital [address] [place], [place] [id number] [place] [id number] [facility] EMERGENCY DEPT [place], [place] [id number] Syncope and collapse; Seizure-like activity (HCC); Neck [...] 04/16/2022 1:2 5 PM CDT [facility]: [facility] [...] - 04/16/2022 3:22 PM CDT Greyson Kevin [id number] [facility] EM[facility]ENC[facility]PARTMENT History Chief Complaint Patient [...] uncomplicated ??? Seizure (CMS/HCC) happened thru out [employer] Past Surgical History: Procedure Laterality Date [...] time in minimally cooperative patient. Per front desk host RN, patient was initially responding and answering [...] uncomplicated ??? Seizure (CMS/HCC) happened thru out [employer] Past Surgical History: Procedure Laterality Date [...] answer questions, somewhat follows some commands, equal guest relations manager strength. No seizure-like activity noted. Psych: Normal [...] Simpson MD - 04/16/2022 4:42 PM CDT [id number] Recurrent Seizure (Child) Your child has had [...] a seizure Last Reviewed Date: 2021 ?? [id number] [employer]. All rights reserved. This information is not intended as a substitute for professional medical care. Always follow your healthcare professional's instructions. documented in this encounter Plan of Treatment Upcoming Encounters Date Type Department Care Team (Late st Contact Info) Description 07/27/2024 12:50 PM GEOPHYSICAL PROSPECTOR Appointment [facility] Imaging Services - Ultrasound [address] [place] [address] [place] [address] [place] [address] 08/03/2024 1:00 PM GEOPHYSICAL PROSPECTOR Office Visit [facility] - [address] [place] [address] [place] [address] [place] [address] Scheduled Referrals Name Type Priority Associated Diagnoses [...] DATE/TIME OF EXAM: ??04/16/2022 3:40 PM, LOCATION ??[facility] INDICATION: R56.9: Unspecified convulsions ([facility]) ADDITIONAL CLINICAL INFORMATION: Ordering Provider Reason For [...] CONTRAST,DATE/TIME OF EXAM: 04/16/2022 3:40 PM, LOCATION [facility] INDICATION: R56.9: Unspecified convulsions (CMS/HCC) ADDITIONAL CLINICAL [...] on 04/16/2022 4:35 PM Zakia Hassan Igor PA-C CT ORDERABLES * CT HEAD NON [...] DATE/TIME OF EXAM: ??04/16/2022 3:40 PM, LOCATION ??[facility] INDICATION: R56.9: Unspecified convulsions ([facility]/HCC) ADDITIONAL CLINICAL INFORMATION: Ordering Provider Reason [...] CONTRAST,DATE/TIME OF EXAM: 04/16/2022 3:40 PM, LOCATION [facility] INDICATION: R56.9: Unspecified convulsions ([facility]) ADDITIONAL CLINICAL INFORMATION: Ordering Provider Reason For [...] Bee MD on 04/16/2022 4:35 PM Zakia AGUILERA-Howie CT ORDERABLES * (ABNORMAL) DRUG SCREEN TOX LIMITED BLD PNL 3 INHOUSE (04/16/2022 2:02 PM CDT) Acetaminophen <3.0(L) 10.0 - 30.0 ug/mL 04/16/2022 2:35 PM CDT [facility] Ethanol <10.0 <10 mg/dL 04/16/2022 2:35 PM CDT [facility] Salicylate <5.0(L) 15.0 - 30.0 mg/dL 04/16/2022 2:35 PM CDT [facility] Blood BLOOD SPECIMEN / Unknown Venipuncture / Unknown 04/16/2022 2:02 PM CDT 04/16/2022 2:10 PM CDT Narrative [facility] - 04/16/2022 2:35 PM CDT [facility] [...] may alter the peak level. Contact the [facility] at or reserved for healthcare professionals to assist you in evaluating potentially toxic acetaminophen levels. Zakia Costa PA-C LAB - CHEMISTRY SALIMA MOORE [facility] [address] [place] [address] * (ABNORMAL) PROLACTIN (04/16/2022 2:02 PM CDT) Prolactin 30.56(H) 5.18 - 26.53 ng/mL 04/16/2022 2:58 PM CDT [facility] Blood BLOOD SPECIMEN / Unknown Venipuncture / Unknown 04/16/2022 2:02 PM CDT 04/16/2022 2:10 PM CDT Zakia Hassan Igor RUSSELL LAB - CHEMISTRY ORDEliza MOORE Performing Organization Address [facility] Co de Phone Number [facility] [address] [place] [address] * LACTIC ACID BLOOD (04/16/2022 2:02 PM CDT) Lactic Acid 1.76 <=2 mmol/L 04/16/2022 2:28 PM CDT [facility] Blood BLOOD SPECIMEN / Unknown Venipuncture / Unknown 04/16/2022 2:02 PM CDT 04/16/2022 2:11 PM CDT Zakia Hassan Igor RUSSELL LAB - CHEMISTRY SALIMA MOORE Performing Organization Address [facility] de Phone Number [facility] [address] [place] [address] * TROPONIN I (04/16/2022 2:02 PM CDT) Troponin I <0.010 <0.038 ng/mL 04/16/2022 2:37 PM CDT [facility] Blood BLOOD SPECIMEN / Unknown Venipuncture / Unknown 04/16/2022 2:02 PM CDT 04/16/2022 2:10 PM CDT Zakia Mo Igor RUSSELL [facility] - CHEMISTRY SALIMA MOORE Performing Organization Address [facility] Co de Phone Number [facility] [id number] [place] [address] * MAGNESIUM BLOOD (04/16/2022 2:02 PM CDT) Magnesium 1.9 1.7 - 2.3 mg/dL 04/16/2022 2:32 PM CDT [facility] Blood BLOOD SPECIMEN / Unknown Venipuncture / Unknown 04/16/2022 2:02 PM CDT 04/16/2022 2:10 PM CDT Zakia Hassan Igor RUSSELL LAB - CHEMISTRY SALIMA MOORE [facility] [address] [place] [address] * HCG BETA BLOOD QUANTITATIVE (04/16/2022 2:02 PM CDT) hCG Quantitative <1.20 mIU/mL 04/16/20 2:56 PM CDT [facility] Blood BLOOD SPECIMEN / Unknown Venipuncture / Unknown 04/16/2022 2:02 PM CDT 04/16/2022 2:10 PM CDT Narrative [facility] - 04/16/2022 2:56 PM CDT [...] Costa PA-C LAB - CHEMISTRY SALIMA MOORE [facility] [address] [place] [address] * (ABNORMAL) CBC W AUTO DIFFERENTIAL (04/16/2022 [...] - 102.0 fl 04/16/2022 2:14 PM CDT [facility] MCH 27.0 25.0 - 35.0 pg 04/16/2022 2:14 PM CDT [facility] MCHC 30.6(L) 31.0 - 37.0 gm/dL 04/16/2022 2:14 PM CDT [facility] Platelet Count 327 100 - 400 x10E9/L 04/16/2022 2:14 PM CDT [facility] RDW-CV 12.3 11.5 - 14.0 % 04/16/2022 2:14 PM CDT [facility] MPV 10.4(H) 6.0 - 9.5 fl 04/16/2022 2:14 PM CDT [facility] Neutrophils % 63.8 31.0 - 78.0 % 04/16/2022 2:14 PM CDT [facility] Lymphocytes % 27.2 13.0 - 54.0 % 04/16/2022 2:14 PM CDT [facility] Monocytes % 6.8 4.0 - 13.0 % 04/16/2022 2:14 PM CDT [facility] Eosinophils % 1.1 0.0 - 8.0 % 04/16/2022 2:14 PM CDT [facility] Basophils % 0.7 % 04/16/2022 2:14 PM CDT [facility] Immature Granulocytes 0.4 % 04/16/2022 2:14 PM CDT [facility] Neutrophil Absolute 3.59 1.4 - 8.58 x10E9/L 04/16/2022 2:14 PM CDT [facility] Lymphocytes Absolute 1.53 0.59 - 5.94 x10E9/L 04/16/2022 2:14 PM CDT [facility] Monocytes Absolute 0.38 0.18 - 1.43 x10E9/L 04/16/2022 2:14 PM CDT [facility] Eosinophils Absolute 0.06 0 - 0.88 x10E9/L 04/16/2022 2:14 PM CDT [facility] Basophils Absolute 0.04 0 - 0.22 x10E9/L 04/16/2022 2:14 PM CDT [facility] Immature Granulocytes Absolute 0.02 0 - 0.11 x10E9/L 04/16/2022 2:14 PM CDT [facility] nRBC Auto 0 /100 WBC 04/16/2022 2:14 PM CDT [facility] Blood BLOOD SPECIMEN / Unknown Venipuncture / Unknown 04/16/2022 2:02 PM CDT 04/16/2022 2:10 PM CDT Zakia Costa PA-C LAB - HEMATOLOGY ORD ERABLES [facility] [address] [place] [address] * COMPREHENSIVE METABOLIC PANEL (04/16/2022 2:02 PM CDT) Glucose 98 70 - 105 mg/dL 04/16/2022 2:32 PM CDT [facility] Sodium 139 136 - 145 mmol/L 04/16/2022 2:32 PM CDT [facility] Potassium 3.9 3.5 - 5.1 mmol/L 04/16/2022 2:32 PM CDT [facility] Chloride 107 98 - 107 mmol/L 04/16/2022 2:32 PM CDT [facility] CO2 21 20 - 28 mmol/L 04/16/2022 2:32 PM CDT [facility] Calcium 9.4 8.4 - 10.4 mg/dL 04/16/2022 2:32 PM CDT [facility] Anion Gap 11 8 - 18 mmol/L 04/16/2022 2:32 PM CDT [facility] BUN 11 7 - 18.7 mg/dL 04/16/2022 2:32 PM CDT [facility] Creatinine 0.82 0.57 - 1.11 mg/dL 04/16/2022 2:32 PM CDT [facility] Alkaline Phosphatase 104 100 - 390 U/L 04/16/2022 2:32 PM CDT [facility] ALT 11 0 - 61 U/L 04/16/2022 2:32 PM CDT [facility] AST 19 5 - 34 U/L 04/16/2022 2:32 PM CDT [facility] Protein Total 7.3 6.4 - 8.3 gm/dL 04/16/2022 2:32 PM CDT [facility] Albumin 4.3 3.4 - 5.0 gm/dL 04/16/2022 2:32 PM CDT [facility] Bilirubin Total 0.3 0.2 - 1.2 mg/dL 04/16/2022 2:32 PM CDT [facility] eGFR by CKD-EPI 2:32 PM CDT [facility] Comment:eGFR calculations ar e not performed for children <18yrs old. Blood BLOOD SPECIMEN / Unknown Venipuncture / Unknown 04/16/2022 2:02 PM CDT 04/16/2022 2:10 PM CDT Zakia Costa PA-C LAB - CHEMISTRY SALIMA MOORE Performing Organization Address City/[facility]/ZIP Co de Phone Number [facility] [address] [place] [address] * EKG 12-LEAD (04/16/2022 1:59 PM CDT) Ventricular Rate 79 BPM [facility] Atrial Rate 79 BPM [facility] P-R Interval 104 ms [facility] QRS Duration ms 74 ms [facility] Q-T Interval ms 376 ms [facility] QTC Calculation (Bezet) 431 ms [facility] Calculated P [place] 27 degrees [facility] Calculated R [place] 54 degrees [facility] Calculated T [place] 22 degrees [facility] Interpretation EKG When compared with ECG of 21-DEC-2014 11:10,the significant change is the development of nonspecific T wave changes. ??Normal sinus rhythm persists. Confirmed by MD Veronica Jamie ([id number]) on 04/17/2022 1:28:05 PM [facility] 04/16/2022 1:59 PM CDT 04/17/2022 1:28 PM CDT Zakia Costa PA-C ECG ORDERABLES Performing Organization Address [facility] Co de Phone Number [facility] documented in this encounter Visit Diagnoses [...] (Due) documented in this encounter Care Teams Foreclosure Clerk Relationship Specialty Start Date End Date Va Olivo MD PCP - General Pediatrics 12/08/17 documented as of this encounter
--- OUTSIDE RECORDS SUMMARY | 2024-07-22 08:24 | XMS_ITS | Referral Summary ---
Author Organization [facility] Address [address] [place] [address] Care Team Providers Care Stucco Mason Name Role Phone Va Olivo MD Primary Care Provider [phone] Source Comments [facility] Affiliates and Associated Physician Practices is amultiple site organization consisting of ambulatory clinics and hospital sitesin [place], [place], [place] and [place]. This disclosure is being madepursuant to the Care Everywhere program and may not contain all informatio navailable regarding this patient. Last updated 18.[facility] Encounters Date Type Department Care Team Description 07/20/2024 Travel 07/20/2024 1:00 PM CREDENTIALS SPECIALIST Office Visit [facility] Medical [facility] - GENERAL REPAIRER [address] [place] [address] Jeremie Perez MD Abnormal uterine bleeding (AUB) (Primary Dx); Screen for STD (sexually transmitted disease) 07/19/2024 3:34 PM CREDENTIALS SPECIALIST - 07/19/2024 5:27 PM CREDENTIALS SPECIALIST Emergency ER at [facility] [place] [id number] [place] [address] DUB (dysfunctional uterine bleeding) (Primary Dx) Discharge Disposition: Home or Self Care from Last 3 Months Allergies Active Allergy Reactions Criticality Noted Date Comments Fd&C Blue #2-Levetiracetam Itching Medications * Be aware that medications may [...] original. 11/05/21 No show letter #1 sent @[facility] ER Problem Noted Date Diagnosed Date Influenza B 09/09/2022 Assessment & Plan (09/09/2022 11:58 AM CREDENTIALS SPECIALIST): Give albuterol prn, if increase distress [...] Comments Blood Pressure 110/72 07/20/2024 1:23 PM CREDENTIALS SPECIALIST Pulse 70 07/20/2024 1:23 PM CREDENTIALS SPECIALIST Temperature 36.7 ??C (98 ??F) 07/19/2024 3:34 PM CREDENTIALS SPECIALIST Respiratory Rate 16 07/19/2024 3:34 PM CREDENTIALS SPECIALIST Oxygen Saturation 100% 07/20/2024 1:23 PM CREDENTIALS SPECIALIST Inhaled Oxygen Concentration - - Weight 66.3 kg (146 lb 3.2 oz) 07/20/2024 1:23 P M CREDENTIALS SPECIALIST Height 158.5 cm (5' 2.4 ) 07/20/2024 1:23 PM CREDENTIALS SPECIALIST Body Mass Index 26.4 07/20/2024 1:23 PM CREDENTIALS SPECIALIST Plan of Treatment Upcoming Encounters Date Type Department Care Team (Late st Contact Info) Description 07/27/2024 12:50 PM CREDENTIALS SPECIALIST Appointment [facility] Imaging Services - [facility]trasound [address] [facility] [address] [place], [place] [id number] [place] [address] [place] [address] 08/03/2024 1:00 PM CREDENTIALS SPECIALIST Office Visit [facility] - GENERAL REPAIRER [address] [place] [phone] [place] [address] [place] [address] Goals Goal Patient Goal Type Associated Problems Recent Progress Patient-Stated? Author Yearly PCP visit Lifestyle Aster Willard, ALEXA Note: Come into office for yearly wcc. Take recommended medication(s) Lifestyle Aster Willard, rn cardiac rehab Procedure Name Priority Date/Time Associated Diagnosis Comments ESTRADIOL Routine 07/20/2024 2:06 PM CREDENTIALS SPECIALIST Abnormal uterine bleeding (AUB) FSH + LH PANEL Routine 07/20/2024 2:06 PM CREDENTIALS SPECIALIST Abnormal uterine bleeding (AUB) PROLACTIN Routine 07/20/2024 2:06 PM CREDENTIALS SPECIALIST Abnormal uterine bleeding (AUB) IRON + TIBC + FERRITIN Routine 2:06 PM CREDENTIALS SPECIALIST Abnormal uterine bleeding (AUB) CBC W/O DIFFERENTIAL Routine 07/20/2024 2:06 PM CREDENTIALS SPECIALIST Abnormal uterine bleeding (AUB) TSH REFLEX FREE T4 Routine 07/20/2024 2: 06 PM CREDENTIALS SPECIALIST Abnormal uterine bleeding (AUB) CHLAMYDIA + GC + TRICH DNA AMPL Routine 07/20/2024 12:00 AM CREDENTIALS SPECIALIST URINALYSIS REFLEX TO MICROSCOPIC NO CULTURE STAT 07/19/2024 4:20 PM CREDENTIALS SPECIALIST HCG BLOOD QUALITATIVE STAT 07/19/2024 4:18 PM CREDENTIALS SPECIALIST CBC W AUTO DIFFERENTIAL STAT 07/19/2024 4:18 PM CREDENTIALS SPECIALIST COMPREHENSIVE METABOLIC PANEL STAT 07/19/2024 4:18 PM CREDENTIALS SPECIALIST from Last 3 Months Results * (ABNORMAL) IRON + TIBC + FERRITIN (07/20/2024 2:06 PM CREDENTIALS SPECIALIST) TIBC 388 250 - 450 ug/dL [facility] INSURANCE BILL UIBC 349 131 - 425 ug/dL [facility] INSURANCE BILL Iron 39 27 - 159 ug/dL [facility] INSURANCE BILL Iron Saturation 10(L) 15 - 55 % [facility] INSURANCE BILL Ferritin 17 15 - 77 ng/mL [facility] INSURANCE BILL Blood BLOOD SPECIMEN / Unknown 07/20/2024 2:06 PM CREDENTIALS SPECIALIST 07/20/2024 Narrative [facility] INSURANCE BILL - 07/21/2024 7:09 AM CREDENTIALS SPECIALIST Performed at: ??01 - [facility] [address] [place], [place] ??[id number] Waste Transportation Technician: Dillon Aguirre PhD, Phone: ??[phone] Jeremie Perez MD LAB - CHEMISTRY ORD ERABLES [facility] INSURANCE BILL [address] [place] [address] * TSH REFLEX FREE T4 (07/20/2024 2:06 PM CREDENTIALS SPECIALIST) TSH 1.180 0.450 - 4.500 uIU/mL [facility] INSURANCE BILL Blood BLOOD SPECIMEN / Unknown 07/20/2024 2:06 PM CREDENTIALS SPECIALIST 07/20/2024 Narrative [facility] INSURANCE BILL - 07/21/2024 8:13 AM CREDENTIALS SPECIALIST Performed at: ??01 - [address] ??[id number] Waste Transportation Technician: Dillon Aguirre PhD, Phone: ??[phone] Jeremie Perez MD LAB - CHEMISTRY ORD ERABLES Performing Organization Address [facility] Phone Number [facility] INSURANCE BILL [address] [place] [address] * PROLACTIN (07/20/2024 2:06 PM CREDENTIALS SPECIALIST) Prolactin 7.5 4.8 - 33.4 ng/mL [facility] INSURANCE BILL Blood BLOOD SPECIMEN / Unknown 07/20/2024 2:06 PM CREDENTIALS SPECIALIST 07/20/2024 Narrative [facility] INSURANCE BILL - 07/21/2024 7:09 AM CREDENTIALS SPECIALIST Performed at: ??01 - [facility] ??[id number] Waste Transportation Technician: Dillon Aguirre PhD, Phone: ??[phone] Jeremie Perez MD LAB - CHEMISTRY ORD ERABLES Performing Organization Address [facility] Phone Number [facility] INSURANCE BILL [address] [place] [address] * ESTRADIOL (07/20/2024 2:06 PM CREDENTIALS SPECIALIST) Estradiol 56.0 pg/mL [facility] INSURANCE BILL Comment: ? Adult Female ? Range ?Follicular phase ? 12.5 - 166.0 ?Ovulation phase ?85.8 - 498.0 ?Luteal phase ? 43.8 - 211.0 ?Postmenopausal ? <6.0 - ??54.7 ?1st trimester ? 215.0 - >4300.0 Akhil ECLIA methodology Blood BLOOD SPECIMEN / Unknown 07/20/2024 2:06 PM CREDENTIALS SPECIALIST 07/20/2024 Narrative [facility] INSURANCE BILL - 07/21/2024 7:09 AM CREDENTIALS SPECIALIST Performed at: ??01 - [facility] [address] [place], [place] ??[id number] Waste Transportation Technician: Dillon Aguirre PhD, Phone: ??[phone] Jeremie Perez MD LAB - CHEMISTRY ORD ERABLES [facility] INSURANCE BILL [address] [place] [address] * (ABNORMAL) CBC W/O DIFFERENTIAL (07/20/2024 2:06 PM CREDENTIALS SPECIALIST) WBC 3.1(L) 3.4 - 10.8 x10E3/uL [...] BLOOD SPECIMEN / Unknown 07/20/2024 2:06 PM CREDENTIALS SPECIALIST 07/20/2024 Narrative [facility] INSURANCE BILL - 07/21/2024 7:09 AM CREDENTIALS SPECIALIST Performed at: ??01 - [facility] [address] [place], [place] ??[id number] Waste Transportation Technician: Dillon Aguirre PhD, Phone: ??[phone] Jeremie Perez MD LAB - HEMATOLOGY OR DERABLES Performing Organization Address City/State/[facility] Co de Phone Number [facility] INSURANCE BILL [address] [place] [address] * FSH + LH PANEL (07/20/2024 2:06 PM CREDENTIALS SPECIALIST) LH 27.4 mIU/mL [facility] INSURANCE BILL [...] BLOOD SPECIMEN / Unknown 07/20/2024 2:06 PM CREDENTIALS SPECIALIST 07/20/2024 Narrative [facility] INSURANCE BILL - 07/21/2024 7:09 AM CREDENTIALS SPECIALIST Performed at: ??01 - [facility] [address] ??[id number] Waste Transportation Technician: Dillon Aguirre PhD, Phone: ??[phone] Jeremie Perez MD LAB - CHEMISTRY ORD ERABLES Performing Organization Address [facility] de Phone Number [facility] INSURANCE BILL [address] [place] [address] * CHLAMYDIA + GC + TRICH DNA AMPL (07/20/2024 12:00 AM CREDENTIALS SPECIALIST) Chlamydia trachomatis AUGUSTO Negative Negative [facility] ACCOUNT BILL GC DNA Probe Negative Negative [facility] ACCOUNT BILL Trichomonas vaginalis by AUGUSTO Negative Negative [facility] ACCOUNT BILL 07/20/2024 07/20/2024 Narrative [facility] ACCOUNT BILL - 07/21/2024 9:07 PM CREDENTIALS SPECIALIST Performed at: ??01 - [facility] [place] ??[id number] Waste Transportation Technician: Clara Crawford MD, Phone: ??[phone] Jeremie Perez MD LAB - MICROBIOLOGY ORDERABLES Performing Organization Address [facility] de Phone Number [facility] ACCOUNT BILL [address] [place] [address] * (ABNORMAL) URINALYSIS REFLEX TO MICROSCOPIC NO CULTURE (07/19/2024 4:20 PM CREDENTIALS SPECIALIST) Color UA Yellow Yellow, Straw 07/19/2024 5:04 PM CREDENTIALS SPECIALIST [facility] Clarity UA Clear Clear 07/19/2024 5:04 PM CREDENTIALS SPECIALIST [facility] Glucose UA Normal Normal 07/19/2024 5:04 PM CREDENTIALS SPECIALIST [facility] Bilirubin UA Negative Negative 07/19/2024 5:04 PM CREDENTIALS SPECIALIST [facility] Ketone UA Negative Negative 07/19/2024 5:04 PM CREDENTIALS SPECIALIST [facility] Specific Decherd UA 1.032(H) 1.005 - 1.030 07/19/2024 5:04 PM CREDENTIALS SPECIALIST [facility] Blood UA 3+(A) Negative 07/19/2024 5:04 PM CREDENTIALS SPECIALIST [facility] pH UA 7.0 5.0 - 9.0 pH 07/19/2024 5:04 PM CREDENTIALS SPECIALIST [facility] Protein UA Trace(A) Negative 07/19/2024 5:04 PM CREDENTIALS SPECIALIST [facility] Urobilinogen UA 2.0(A) Normal mg/dL 025 5:04 PM CREDENTIALS SPECIALIST [facility] Nitrite UA Negative Negative 07/19/2024 5:04 PM CREDENTIALS SPECIALIST [facility] Leukocyte UA Negative Negative 07/19/2024 5:04 PM CREDENTIALS SPECIALIST [facility] RBC UA >100(A) 0 - 5 # /hpf 07/19/2024 5:04 PM CREDENTIALS SPECIALIST [facility] WBC UA 0-5 0 - 5 # /hpf 07/19/2024 5:04 PM CREDENTIALS SPECIALIST [facility] Bacteria UA None Seen None Seen 07/19/2024 5:04 PM CREDENTIALS SPECIALIST [facility] Squamous Epithelial Cells 0-2 0 - 5 /hpf 07/19/2024 5:04 PM CREDENTIALS SPECIALIST [facility] Mucus UA 2+ /LPF 07/19/2024 5:04 PM [facility] Urine URINE SPECIMEN OBTAINED BY CLEAN CATCH PROCEDURE / Unknown Collection / Unknown 07/19/2024 4:20 PM CREDENTIALS SPECIALIST 07/19/2024 4:51 PM CREDENTIALS SPECIALIST Narrative [facility] - 07/19/2024 5:04 PM CREDENTIALS SPECIALIST Ruchi Chappell APRN-INSTALL AND REPAIR TECHNICIAN LAB - URINALYSIS ORDERABLES [facility] [address] [place] [address] * (ABNORMAL) CBC W AUTO DIFFERENTIAL (07/19/2024 4:18 PM CREDENTIALS SPECIALIST) WBC 2.9(L) 4.0 - 10.7 x10E9/L 07/19/2024 4:56 PM CREDENTIALS SPECIALIST [facility] RBC Count 4.11 3.90 - 5.20 x10E12/L 07/19/2024 4:56 PM [facility] Hemoglobin 11.1(L) 11.9 - 15.8 g/dL 07/19/2024 4:56 PM [facility] Hematocrit 34.0(L) 34.8 - 46.1 % 07/19/2024 4:56 PM [facility] MCV 82.7 80.0 - 98.0 fL 07/19/2024 4:56 PM [facility] MCH 27.0 26.7 - 33.6 pg 07/19/2024 4:56 PM [facility] MCHC 32.6 31.7 - 36.3 g/dL 07/19/2024 4:56 PM [facility] RDW-CV 11.7 11.3 - 14.8 % 07/19/2024 4:56 PM [facility] Platelet Count 345 150 - 420 x10E9/L 07/19/2024 4:56 PM [facility] MPV 10.3 7.8 - 11.4 fL 07/19/2024 4:56 PM [facility] Neutrophil % 44.6 41.0 - 74.0 % 07/19/2024 4:56 PM [facility] Lymphocyte % 44.0 17.0 - 47.0 % 07/19/2024 4:56 PM [facility] Monocyte % 8.6 3.0 - 11.0 % 07/19/2024 4:56 PM [facility] Eosinophil % 1.4 0.0 - 7.0 % 07/19/2024 4:56 PM [facility] Basophil % 1.4 0.0 - 1.6 % 07/19/2024 4:56 PM [facility] Immature Granulocytes % 0.0 0.0 - 1.0 % 07/19/2024 4:56 PM [facility] Neutrophil Absolute 1.30(L) 1.60 - 7.50 x10E9/L 07/19/2024 4:56 PM CREDENTIALS SPECIALIST [facility] Lymphocyte Absolute 1.28 1.00 - 4.40 x10E9/L 07/19/2024 4:56 PM CREDENTIALS SPECIALIST [facility] Monocyte Absolute 0.25 0.15 - 1.00 x10E9/L 07/19/2024 4:56 PM [facility] Eosinophil Absolute 0.04 0.00 - 0.60 x10E9/L 07/19/2024 4:56 PM [facility] Basophil Absolute 0.04 0.00 - 0.13 x10E9/L 07/19/2024 4:56 PM [facility] Blood BLOOD SPECIMEN / Unknown Venipuncture / Unknown 07/19/2024 4:18 PM CREDENTIALS SPECIALIST 07/19/2024 4:50 PM [facility] Ruchi Chappell SANDFILL OPERATOR-INSTALL AND REPAIR TECHNICIAN LAB - HEMATOLOGY ORDERABLES [facility] [address] [place] [address] * (ABNORMAL) COMPREHENSIVE METABOLIC PANEL (07/19/2024 4:18 PM CREDENTIALS SPECIALIST) Glucose 93 70 - 99 mg/dL 07/19/2024 5:15 PM [facility] Sodium 139 136 - 145 mmol/L 07/19/2024 5:15 PM [facility] Potassium 5.7(H) 3.5 - 5.1 mmol/L 07/19/2024 5:15 PM [facility] Comment:Specimen is Moderate ly Hemolyzed. This potassium result may be falsely elevated. Chloride 109(H) 98 - 107 mmol/L 07/19/2024 5:15 PM [facility] CO2 20(L) 22 - 29 mmol/L 07/19/2024 5:15 PM [facility] Calcium 10.0 8.4 - 10.4 mg/dL 07/19/2024 5:15 PM [facility] Anion Gap 10 6 - 16 mmol/L 07/19/2024 5:15 PM CREDENTIALS SPECIALIST [facility] BUN 15 5.3 - 18.7 mg/dL 07/19/2024 5:15 PM CREDENTIALS SPECIALIST [facility] Creatinine 1.05 0.57 - 1.11 mg/dL 07/19/2024 5:15 PM CREDENTIALS SPECIALIST [facility] Alkaline Phosphatase 68 40 - 150 U/L 07/19/2024 5:15 PM CREDENTIALS SPECIALIST [facility] ALT 15 0 - 55 U/L 07/19/2024 5:15 PM CREDENTIALS SPECIALIST [facility] AST 36(H) 5 - 34 U/L 07/19/2024 5:15 PM CREDENTIALS SPECIALIST [facility] Comment:Specimen is Moderate ly Hemolyzed. This AST result may be falsely elevated. Protein Total 8.5(H) 6.4 - 8.3 gm/dL 07/19/2024 5:15 PM CREDENTIALS SPECIALIST [facility] Comment:Specimen is Moderate ly Hemolyzed. This total protein result may be falsely elevated. Albumin 4.5 3.4 - 5.0 gm/dL 07/19/2024 5:15 PM CREDENTIALS SPECIALIST [facility] Bilirubin Total 0.3 0.2 - 1.2 mg/dL 07/19/2024 5:15 PM CREDENTIALS SPECIALIST [facility] eGFR by CKD-EPI 78(L) >=90 mL/min/1.7 3 m2 07/19/2024 5:15 PM CREDENTIALS SPECIALIST [facility] Blood BLOOD SPECIMEN / Unknown Venipuncture / Unknown 07/19/2024 4:18 PM CREDENTIALS SPECIALIST 07/19/2024 4:51 PM CREDENTIALS SPECIALIST Ruchi Chappell APRN-INSTALL AND REPAIR TECHNICIAN LAB - CHEMISTRY O RDERABLES [facility] [address] [place] [address] * HCG BLOOD QUALITATIVE (07/19/2024 4:18 PM CREDENTIALS SPECIALIST) HCG Qual Serum Negative Negative 07/19/2024 5:11 PM CREDENTIALS SPECIALIST [facility] Blood BLOOD SPECIMEN / Unknown Venipuncture / Unknown 07/19/2024 4:18 PM CREDENTIALS SPECIALIST 07/19/2024 4:51 PM CREDENTIALS SPECIALIST Narrative [facility] - 07/19/2024 5:11 PM CREDENTIALS SPECIALIST Specimens containing human anti-mouse antibodies may exhibit false positive or false negative results. If qualitative interpretation is inconsistent with clinical evaluation, consider confirmation by an alternative hCG method. Ruchi Chappell SANDFILL OPERATOR-INSTALL AND REPAIR TECHNICIAN LAB - CHEMISTRY O RDERABLES [facility] [address] [place] [address] from Last 3 Months Advance Directives Documents on File Type Date Recorded Patient Senior Salesforce Developer Expl anation Adv Directive/Living Will/POA 12/14/2013 2:19 PM Care Teams Stucco Mason Relationship Specialty Start Date End Date Va Olivo MD PCP - General Pediatrics 12/08/17
--- OUTSIDE RECORDS SUMMARY | 2024-07-22 08:24 | XMS_ITS | Encounter Summary ---
Author Organization [facility] Health Address [address] [place] [address] Care Team Providers Care Retort Load Expediter Name Role Phone Va Olivo MD Primary Care Provider [phone] Encounter Details Date Type Department Care Team [...] Coronavirus/COVID-19? No / Unsure 05/19/2022 9:59 AM CYCLE MANAGER documented as of this encounter Plan of Treatment Upcoming Encounters Date Type Department Care Team (Late st Contact Info) Description 07/27/2024 12:50 PM CYCLE MANAGER Appointment [facility] Health Imaging Services - Ultrasound [address] [place] [address] [place] [address] [place] [address] 08/03/2024 1:00 PM CYCLE MANAGER Office Visit [facility] - PHYSICAL BIOCHEMIST [address] [place] [phone] [place] [address] [place] [address] documented as of this encounter Goals Goal Patient Goal Type Associated Problems Recent Progress Patient-Stated? Author Yearly PCP visit Lifestyle Aster Willard, RN Note: Come into office for yearly wcc. Take recommended medication(s) Lifestyle No Aster Garnica, RN documented as of this encounter Visit Diagnoses Not on filedocumented in this encounter Care Teams Retort Load Expediter Relationship Specialty Start Date End Date Va Olivo MD PCP - General Pediatrics 12/08/17 documented as of this encounter
--- OUTSIDE RECORDS SUMMARY | 2024-07-22 08:24 | XMS_ITS | Encounter Summary ---
Author Organization [facility] Address [address] [address] Care Team Providers Care Road Train Driver Name Role Phone Va Olivo MD Primary Care Provider [phone] Reason for Visit * Reason Onset Date Comments Question 03/02/2023 Encounter Details Date Type Department Care Team (Late st Contact Info) Description 03/02/[address] [facility] Pediatrics [address] [place] [address] Gillian Casillas, INTELLIGENCE SENIOR SERGEANT-MORTGAGE CLERK [address] [place] [address] Question Social History Tobacco Use [...] st Contact Info) Description 07/27/2024 12:50 PM MANAGER WOUND Appointment [facility] Imaging Services - Ultrasound [address] [facility] [address] [place], [place] [id number] [place] [address] [place] [address] 08/03/2024 1:00 PM MANAGER WOUND Office Visit [facility] - FRATERNITY HOUSE COOK [address] [place] [phone] [place] [address] [place] [address] documented as of this encounter Goals Goal Patient Goal Type Associated Problems Recent Progress Patient-Stated? Author Yearly PCP visit Lifestyle No Aster Garnica RN Note: Come into office for yearly wcc. Take recommended medication(s) Lifestyle No Aster Garnica RN documented as of this encounter Visit Diagnoses Not on filedocumented in this encounter Care Teams Road Train Driver Relationship Specialty Start Date End Date Va Olivo MD PCP - General Pediatrics 12/08/17 documented as of this encounter
--- OUTSIDE RECORDS SUMMARY | 2024-07-22 08:24 | XMS_ITS | Encounter Summary ---
Author Organization [facility] Address [address] [place] [address] Care Team Providers Care Solar Applications Development Engineer Name Role Phone Va Olivo MD Primary Care Provider [phone] Encounter Details Date Type Department Care Team (Latest Contact Info) Description 04/01/2023 1:10 PM CDT Ancillary Procedure [facility] Orthopedics - Radiology [id number] [place] [address] [place] [address] [facility] [address] [place] [address] Pain of right tibia Social [...] st Contact Info) Description 07/27/2024 12:50 PM BILLING AND QUALITY TECHNICIAN Appointment [facility] Health Imaging Services - Ultrasound [address] [facility] [address] [place] [address] [place] [address] [place] [address] 08/03/2024 1:00 PM BILLING AND QUALITY TECHNICIAN Office Visit [facility] - PENCILS WASHER [address] [place] [phone] [place] [address] [place], [place] [id number] documented as of this encounter Goals Goal [...] tibia documented in this encounter Care Teams Solar Applications Development Engineer Relationship Specialty Start Date End Date Va Olivo MD PCP - General Pediatrics 12/08/17 documented as of this encounter
--- OUTSIDE RECORDS SUMMARY | 2024-07-22 08:24 | XMS_ITS | Encounter Summary ---
Author Organization [facility] Health Address [address] [facility] [place] [address] Care Team Providers Care Carpet Installation Specialist Name Role Phone Va Olivo MD Primary Care Provider [phone] Encounter Details Date Type Department Care Team [...] st Contact Info) Description 07/27/2024 12:50 PM LASER ENGINEER Appointment [facility] Health Imaging Services - Ultrasound [address] [facility] [address] [place] [address] [place] [address] [place] [address] 08/03/2024 1:00 PM LASER ENGINEER Office Visit [facility] - JR. JAVA DEVELOPER [address] [place] [address] [place] [address] [place], [place] [id number] documented as of this encounter Goals Goal Patient Goal Type Associated Problems Recent Progress Patient-Stated? Author Yearly PCP visit Lifestyle Aster Willard, RN Note: Come into office for yearly wcc. Take recommended medication(s) Lifestyle Aster Willard, RN documented as of this encounter Visit Diagnoses Not on filedocumented in this encounter Care Teams Carpet Installation Specialist Relationship Specialty Start Date End Date Va Olivo MD PCP - General Pediatrics 12/08/17 documented as of this encounter
--- OUTSIDE RECORDS SUMMARY | 2024-07-22 08:24 | XMS_ITS | Encounter Summary ---
Author Organization [facility] Address [address] [facility] [place] [address] Care Team Providers Care Power Wood Sawyer Name Role Phone Va Olivo MD Primary Care Provider [phone] Reason for Visit * Reason Comments Asthma Encounter Details Date Type Department Care Team (Late st Contact Info) Description 09/09/2022 11:10 AM LOCK UP WORKER - 09/09/2022 11:59 AM LOCK UP WORKER Hospital Encounter [facility] [address] [place] [address] [id number] Jori Santiago MD Retired per [id number] 09/11/2023 Social History Tobacco Use Types Packs/Day [...] Comments Blood Pressure 122/72 09/09/2022 11:31 AM LOCK UP WORKER Pulse 118 09/09/2022 11:31 AM LOCK UP WORKER Temperature 36.4 ??C (97.5 ??F) 09/09/2022 11:31 AM C Respiratory Rate 20 09/09/2022 11:31 AM LOCK UP WORKER Oxygen Saturation - - Inhaled Oxygen Concentration - - Weight 57.6 kg (127 lb) 09/09/2022 11:31 AM LOCK UP WORKER Height 161 cm (5' 3.39 ) 09/09/2022 11:31 AM LOCK UP WORKER Body Mass Index 22.22 09/09/2022 11:31 AM LOCK UP WORKER Body Mass Index Percentile 61.78% 09/09/2022 11: 31 AM LOCK UP WORKER Growth Chart: [facility] (Girls, 2- 20 Years) documented in this [...] original note were not included. Division of [facility] [place] [address] ??? Name: Greyson Kevin Age: [age] year old 10 month old Sex: female Date: 09/09/2022 : [facility] Acute Visit Chief Complaint Asthma Greyson Kevin is a 16 year old female that was seen today at the [facility] [place] [facility] for an Acute Visit. She was [...] uncomplicated ??? Seizure (CMS/HCC) happened thru out [facility] [employer] Allergies Patient has no known allergies. Immunizations Up to date Vitals and Growth Parameters Temp: 97.5 ??F (36.4 ??C) Height: 161 cm (5' 3.39 ) 37 %ile (Z= -0.32) based on CDC (Girls, 2-20 Years) Pauoanu-wse-efe data based on Stature recorded on 09/09/2022. Weight: 57.6 kg (127 lb) 57 %ile (Z= 0.17) based on CDC (Girls, 2-20 Years) mrvtsr-rfr-siv data using vitals from 09/09/2022. BMI: 22.22 [...] or fail to improve. Jori Santiago MD UP WORKER documented in this encounter Plan of Treatment Upcoming Encounters Date Type Department Care Team (Late st Contact Info) Description 07/27/2024 12:50 PM LOCK UP WORKER Appointment [facility] Imaging Services - Ultrasound [address] [facility] 104 [place] [address] [place] [address] [place], [place] [id number] 08/03/2024 1:00 PM LOCK UP WORKER Office Visit [facility] - RN AMBULATORY [address] [place] [address] [place] [address] [place] [address] documented as of this encounter Goals Goal Patient Goal Type Associated Problems Recent Progress Patient-Stated? Author Yearly PCP visit Lifestyle Aster Willard, RN Note: Come into office for yearly wcc. Take recommended medication(s) Lifestyle Aster Willadr, RN documented as of this encounter Procedures Procedure Name Priority Date/Time Associated Diagnosis Comments SARS-COV-2 INFLUENZA ANTIGEN - POCT INTER Routine 09/09/2022 11:37 AM LOCK UP WORKER Influenza B documented in this encounter Results * (ABNORMAL) SARS-COV-2 INFLUENZA ANTIGEN - POCT INTER (09/09/2022 11:37 AM LOCK UP WORKER) SARS-CoV-2 Ag Negative Negative 09/09/2022 11:45 AM LOCK UP WORKER [facility] Influenza A Antigen Negative Negative 09/09/2022 11:45 AM LOCK UP WORKER [facility] Influenza B Antigen Positive(A) Negative 09/09/2022 11:45 AM LOCK UP WORKER [facility] Microbiology SPECIMEN FROM NASAL FOSSAE / Unknown 09/09/2022 11:37 AM LOCK UP WORKER 09/09/2022 11:45 AM LOCK UP WORKER Narrative MINH PEDRAZA - 09/09/2022 11:45 AM LOCK UP WORKER SARS-CoV-2 antigen testing is authorized for use [...] POINT OF CARE ORDERABLES Performing Organization Address City/State/[facility] Co de Phone Number [facility]ARRO [facility] [address] [phone] documented in this encounter Visit Diagnoses Diagnosis Influenza B- Primary Influenza with other respiratory manifestations * Assessment & Plan Note - Jori Santiago MD - 09/09/2022 11:55 AM LOCK UP WORKER Associated Problem(s): Influenza B Give albuterol prn, if increase distress call-mother aware that the flu can exacerbate the flu UP WORKER documented in this encounter Care Teams Power Wood Sawyer Relationship Specialty Start Date End Date Va Olivo MD PCP - General Pediatrics 12/08/17 documented as of this encounter
--- OUTSIDE RECORDS SUMMARY | 2024-07-22 08:24 | XMS_ITS | Encounter Summary ---
Author Organization [facility] Address [address] [facility] [place] [address] Care Team Providers Care Bird Keeper Name Role Phone Va Olivo MD Primary Care Provider [phone] Reason for Visit * Reason Onset Date Comments General 05/22/2023 Encounter Details Date Type Department Care Team ([facility] st Contact Info) Description 05/22/2023 Telephone [facility] Pediatrics [address] [place] [address] Va Olivo MD [address] [facility] [phone] [place] [address] General Social History Tobacco Use [...] Letter uploaded and snt to Greyson through [employer] as requested. A EXECUTIVE documented in this encounter Plan of Treatment Upcoming Encounters Date Type Department Care Team (Late st Contact Info) Description 07/27/2024 12:50 PM MEDIA EXECUTIVE Appointment [facility] Imaging Services - Ultrasound [address] [address] [place] [address] [place] [address] 08/03/2024 1:00 PM MEDIA EXECUTIVE Office Visit [facility] - ECOLOGY TEACHER [address] [place] [phone] [place] [address] [place] [address] documented as of this encounter Goals Goal Patient Goal Type Associated Problems Recent Progress Patient-Stated? Author Yearly PCP visit Lifestyle No Aster Garnica RN Note: Come into office for yearly wcc. Take recommended medication(s) Lifestyle No Nahun, Aster Lynn, RN documented as of this encounter Visit Diagnoses Not on filedocumented in this encounter Care Teams Bird Keeper Relationship Specialty Start Date End Date Va Olivo MD PCP - General Pediatrics 12/08/17 documented as of this encounter
--- OUTSIDE RECORDS SUMMARY | 2024-07-22 08:24 | XMS_ITS | Encounter Summary ---
Author Organization [facility] Address [address] [facility] [place] [address] Care Team Providers Care Metal Sprayer Production Name Role Phone Va Olivo MD Primary Care Provider [phone] Reason for Visit * Reason Comments Seizure Episodes of syncope and seizure like episodes * Evaluate (Urgent) - Closed Specialty Diagnoses / Procedures Referred By Contac t Referred To Contact Diagnoses Syncope and collapse Seizure-like activity (HCC) [place] [address] [place] [address] [place] [address] [place] [address] Referral ID Status Reason Start Date Expiration Date V isits Requested Visits Authorized [id number] Closed Specialty Services Required 04/16/2022 04/16/2023 1 1 Encounter Details Date Type Department Care Team (Latest Contact Info) Description 05/19/2022 8:10 AM SECURITY CONSULTANT - 05/19/2022 9:59 AM SECURITY CONSULTANT Hospital [facility] - Neurology [address] [facility] [place] [address] [place] [address] [place] [address] Jhonatan Nuñez MD [address] [place] [address] Discharge Disposition: Home or Self Care Social [...] Coronavirus/COVID-19? No / Unsure 05/19/2022 9:59 AM SECURITY CONSULTANT documented as of this encounter Last Filed Vital Signs Vital Sign Reading Time Taken Comments Blood Pressure - - Pulse - - Temperature - - Respiratory Rate - - Oxygen Saturation - - Inhaled Oxygen Concentration - - Weight 54.3 kg (119 lb 11.4 oz) 05/19/2022 8:28 AM SECURITY CONSULTANT Height 159 cm (5' 2.6 ) 05/19/2022 8:28 AM SECURITY CONSULTANT Body Mass Index 21.48 05/19/2022 8:28 AM SECURITY CONSULTANT Body Mass Index Percentile 54.73% 05/19/2022 8:2 8 AM SECURITY CONSULTANT Growth Chart: [facility] (Girls, 2- 20 Years) documented in this encounter Discharge Instructions * Patient Instructions* Jil Brito MD - 05/19/2022 9:23 AM SECURITY CONSULTANT It was a pleasure seeing Journey today. [...] if you have any questions or concerns. RITY CONSULTANT documented in this encounter Medications at Time [...] patient, Greyson [facility] at [facility]. She was accompanied by her Mother. Greyson [...] -0.14) based on CDC (Girls, 2-20 Years) iqpblw-qat-wnj data using vitals from 04/16/2022 from contact [...] -0.62) based on CDC (Girls, 2-20 Years) Gyqwbut-mot-pmj data based on Stature recorded on 05/19/2022. 44 %ile (Z= -0.16) based on [facility] (Girls, 2-20 Years) eetgrk-bex-mzf data using vitals from 05/19/2022. 55 %ile [...] touch, temperature and vibration Cerebellar: Normal FNF, THOMAS's, no dysdiadochokinesia, steady in Romberg stance Gait: [...] Jil Brit[place] CC: [place] [id number] [facility] / [place] [id number] Date: 05/19/2022 10:54 AM RITY CONSULTANT Associated attestation - Jhonatan Nuñez MD - 05/21/2022 9:03 AM SECURITY CONSULTANT I have seen and examined the patient [...] st Contact Info) Description 07/27/2024 12:50 PM SECURITY CONSULTANT Appointment [facility] Imaging Services - Ultrasound [address] [facility] [address] [place], [place] [phone] [place] [address] [place], [place] [phone] 08/03/2024 1:00 PM SECURITY CONSULTANT Office Visit [facility] - FUEL ATTENDANT [address] [place] [phone] [place] [address] [place] [address] Scheduled Referrals Name Type Priority Associated Diagnoses Orde r Schedule MDIRECT NEUROLOGY REFERRAL Outpatient Referral Routine Syncope and [...] Primary documented in this encounter Care Teams Metal Sprayer Production Relationship Specialty Start Date End Date Va Olivo MD PCP - General Pediatrics 12/08/17 documented as of this encounter
--- OUTSIDE RECORDS SUMMARY | 2024-07-22 08:24 | XMS_ITS | Encounter Summary ---
Author Organization [facility] Address [address] [facility] [place] [address] Care Team Providers Care Art Objects Supervisor Name Role Phone Va Olivo MD Primary Care Provider [phone] Reason for Visit * Reason Onset Date Comments MEDICATION REFILL 03/19/2023 Encounter Details Date Type Department Care Team (Late st Contact Info) Description 03/19/2023 Refill [facility] Pediatrics [address] [place] [address] Va Olivo MD [address] [facility] [phone] [place] [address] MEDICATION REFILL Social History Tobacco [...] st Contact Info) Description 07/27/2024 12:50 PM BLOCKER HEATED METAL FORMS Appointment [facility] Imaging Services - Ultrasound [address] [facility] [address] [place], [place] [phone] [place] [address] [place] [address] 08/03/2024 1:00 PM BLOCKER HEATED METAL FORMS Office Visit [facility] - PROTOZOOLOGIST [address] [place] [phone] [place] [address] [place] [address] documented as of this encounter Goals Goal Patient Goal Type Associated Problems Recent Progress Patient-Stated? Author Yearly PCP visit Lifestyle Aster Willard RN Note: Come into office for yearly wcc. Take recommended medication(s) Lifestyle No Aster Garnica RN documented as of this encounter Visit Diagnoses Not on filedocumented in this encounter Care Teams Art Objects Supervisor Relationship Specialty Start Date End Date Va Olivo MD PCP - General Pediatrics 12/08/17 documented as of this encounter
--- OUTSIDE RECORDS SUMMARY | 2024-07-22 08:24 | XMS_ITS | Encounter Summary ---
Author Organization [facility] Address [address] [facility] [place] [address] Care Team Providers Care Electrical Helper Name Role Phone Va Olivo MD Primary Care Provider [phone] Reason for Referral * Radiology Services (Routine) - Closed Specialty Diagnoses / Procedures Referred By Contac t Referred To Contact MRI Diagnoses Pain in left tibia Procedures [place] [address] [place] [address] Referral ID Status Reason Start Date Expiration Date Visits Re quested Visits Authorized [id number] Closed 04/06/2023 05/21/2023 1 1 Reason for Visit * Radiology Services (Routine) - Closed Specialty Diagnoses / Procedures Referred By Contac t Referred To Contact MRI Diagnoses Pain in left tibia Procedures [place] [address] [place] [address] Referral ID Status Reason Start Date Expiration Date Visits Re quested Visits Authorized [id number] Closed 04/06/2023 05/21/2023 1 1 Encounter Details Date Type Department Care Team (Latest Contact Info) Description 04/10/2023 9:07 AM CDT - 04/10/2023 11:59 PM CDT Hospital Encounter [facility] Imaging Services - MRI [address] [id number] Discharge Disposition: Home or Self Care Social [...] st Contact Info) Description 07/27/2024 12:50 PM INSIDE OUTSIDE SALES REPRESENTATIVE Appointment [facility] Imaging Services - Ultrasound [address] [facility] [address] [place] [address] [place] [address] [place] [address] 08/03/2024 1:00 PM INSIDE OUTSIDE SALES REPRESENTATIVE Office Visit [facility] - RAIL CAR REPAIR CARMAN [address] [place] [phone] [place] [address] [place], [place] [phone] documented as of this encounter Goals Goal [...] tibia documented in this encounter Care Teams Electrical Helper Relationship Specialty Start Date End Date Va Olivo MD PCP - General Pediatrics 12/08/17 documented as of this encounter
--- OUTSIDE RECORDS SUMMARY | 2024-07-22 08:24 | XMS_ITS | Encounter Summary ---
Author Organization [facility] Address [address] [facility] [place] [address] Care Team Providers Care Event Planner Name Role Phone Va Olivo MD Primary Care Provider [phone] Reason for Visit * Reason Onset Date Comments MEDICATION REFILL 03/18/2023 Encounter Details Date Type Department Care Team (Late st Contact Info) Description 03/18/2023 Refill [facility] Pediatrics [address] [place] [address] Va Olivo MD [address] [facility] [phone] [place] [address] MEDICATION REFILL Social History Tobacco [...] st Contact Info) Description 07/27/2024 12:50 PM RN OBGYN Appointment [facility] Imaging Services - Ultrasound [address] [facility] [address] [place], [place] [address] [place] [address] [place], [place] [address] 08/03/2024 1:00 PM RN OBGYN Office Visit [facility] - JOURNEYMAN PRESSMAN [address] [place] [phone] [place] [address] [place] [address] documented as of this encounter Goals Goal Patient Goal Type Associated Problems Recent Progress Patient-Stated? Author Yearly PCP visit Lifestyle No Aster Garnica RN Note: Come into office for yearly wcc. Take recommended medication(s) Lifestyle No Aster Garnica RN documented as of this encounter Visit Diagnoses Not on filedocumented in this encounter Care Teams Event Planner Relationship Specialty Start Date End Date Va Olivo MD PCP - General Pediatrics 12/08/17 documented as of this encounter
--- OUTSIDE RECORDS SUMMARY | 2024-07-22 08:24 | XMS_ITS | Encounter Summary ---
Author Organization [facility] Address [address] [facility] [place] [address] Care Team Providers Care Enamel Shader Name Role Phone Va Olivo MD Primary Care Provider [phone] Reason for Visit * Reason Onset Date Comments Question 04/29/2022 Encounter Details Date Type Department Care Team ([facility] st Contact Info) Description 04/29/2022 Telephone [facility] Pediatrics [address] [place] [address] Va Olivo MD [address] [facility] [phone] [place] [address] Question Social History Tobacco Use [...] Coronavirus/COVID-19? No / Unsure 05/19/2022 9:59 AM EXTERMINATION INSPECTOR documented as of this encounter Miscellaneous Notes [...] gave her the number to Neurology at [facility] because she inquired about a seizure action plan ([facility] told her to fu with neuro). Please advise. documented in this encounter Plan of Treatment Upcoming Encounters Date Type Department Care Team (Late st Contact Info) Description 07/27/2024 12:50 PM EXTERMINATION INSPECTOR Appointment [facility] Imaging Services - Ultrasound [address] [address] [place] [address] [place] [address] 08/03/2024 1:00 PM EXTERMINATION INSPECTOR Office Visit [facility] Medical Group - MANAGER PROCESS EXCELLENCE [address] [place] [address] [place] [address] [place] [address] documented as of this encounter Goals Goal Patient Goal Type Associated Problems Recent Progress Patient-Stated? Author Yearly PCP visit Lifestyle Aster Willard, RN Note: Come into office for yearly wcc. Take recommended medication(s) Lifestyle No Aster Garnica, RN documented as of this encounter Visit Diagnoses Not on filedocumented in this encounter Care Teams Enamel Shader Relationship Specialty Start Date End Date Va Olivo MD PCP - General Pediatrics 12/08/17 documented as of this encounter
--- OUTSIDE RECORDS SUMMARY | 2024-07-22 08:24 | XMS_ITS | Encounter Summary ---
Author Organization [facility] [employer] Address [address] [facility] [place] [address] Care Team Providers Care Shell Sieve Operator Name Role Phone Va Olivo MD Primary Care Provider [phone] Reason for Referral * Neurology (Routine) - Closed Specialty Diagnoses / Procedures Referred By Contac t Referred To Contact Electrophysiology Diagnoses Seizure (HCC) Procedures EEG AWAKE AND ASLEEP Jhonatan Nuñez MD [address] [place] [address] [facility]Emg [address] [place] [address]. [place] [address] Referral ID Status Reason Start Date Expiration Date Visits Re quested Visits Authorized [id number] Closed 05/13/2022 05/13/2023 1 1 Reason for Visit * Reason Onset Date Comments Appointment 05/13/2022 Encounter Details Date Type Department Care Team (Late st Contact Info) Description 05/13/2022 Telephone [facility] Pediatrics - Neurology [address] [place] [address] [facility] Update Information Appointment Social History Tobacco Use [...] 05/13/2022 1:41 PM CDT Referral received to [facility] Neurology. Referral Reason: Syncope and collapse Seizure-like activity Referring Source: ANTONIO BLUM Insurance Carrier: [facility] Scheduling Plan: General Neuro: yes NOS: h/o of seizure EEG: yes Appointment scheduled for 05/19 at 9:[address] Nuñez. Please place EEG order and schedule appt. documented in this encounter Plan of Treatment Upcoming Encounters Date Type Department Care Team (Late st Contact Info) Description 07/27/2024 12:50 PM MOTORIZED SQUAD CAPTAIN Appointment [facility] Imaging Services - Ultrasound [address] [facility] 104 [place] [address] [place] [address] [place] [address] 08/03/2024 1:00 PM MOTORIZED SQUAD CAPTAIN Office Visit [facility] Group - PATIENT SUPPORT ASSOCIATE [address] [place] [address] [place] [address] [facility] [address] [place], [place] [phone] documented as of this encounter Goals Goal Patient Goal Type Associated Problems Recent Progress Patient-Stated? Author Yearly PCP visit Lifestyle Aster Willard, RN Note: Come into office for yearly wcc. Take recommended medication(s) Lifestyle No Aster Garnica, RN documented as of this encounter Visit Diagnoses Diagnosis Seizure (HCC)- Primary Other convulsions documented in this encounter Care Teams Shell Sieve Operator Relationship Specialty Start Date End Date Va Olivo MD PCP - General Pediatrics 12/08/17 documented as of this encounter
--- OUTSIDE RECORDS SUMMARY | 2024-07-22 08:24 | XMS_ITS | Encounter Summary ---
Author Organization [facility] Address [address] [facility] [address] Care Team Providers Care Cardiology Nurse Name Role Phone Va Olivo MD Primary Care Provider [phone] Reason for Visit * Reason Comments Rash Headache Encounter Details Date Type Department Care Team (Late st Contact Info) Description 10/29/2023 2:00 PM CDT - 10/29/2023 3:23 PM CDT Emergency ER at [address] [address] Itchy eyes (Primary Dx) Discharge [...] (HCC) ??? Seizure (HCC) happened thru out [employer] who presents with itchy watery bilateral [...] (HCC) ??? Seizure (HCC) happened thru out [employer] Past Surgical History: Procedure Laterality Date [...] st Contact Info) Description 07/27/2024 12:50 PM CHIEF GUARD Appointment [facility] Imaging Services - Ultrasound [address] [facility] [address] [place] [address] [place] [address] [place] [address] 08/03/2024 1:00 PM CHIEF GUARD Office Visit [facility] - SENIOR INSIGHT MANAGER INTERNATIONAL [address] [place] [phone] [place] [address] [address] documented as of this encounter Goals Goal Patient Goal Type Associated Problems Recent Progress Patient-Stated? Author Yearly PCP visit Lifestyle No Aster Garnica, RN Note: Come into office for yearly wcc. Take recommended medication(s) Lifestyle No Aster Garnica, RN documented as of this encounter Visit Diagnoses Diagnosis Itchy eyes- Primary Other ill-defined disorder of eye documented in this encounter Care Teams Cardiology Nurse Relationship Specialty Start Date End Date Va Olivo MD PCP - General Pediatrics 12/08/17 documented as of this encounter
--- OUTSIDE RECORDS SUMMARY | 2024-07-22 08:24 | XMS_ITS | Encounter Summary ---
Author Organization [facility] Address [address] [facility] [place] [address] Care Team Providers Care Clinical Training Specialist Name Role Phone Va Olivo MD Primary Care Provider [phone] Encounter Details Date Type Department Care Team (Late st Contact Info) Description 04/17/2022 1:23 PM CDT - 04/17/2022 1:28 PM CDT Hospital Encounter [facility] at [address] [address] Dora Aden MD [address] [place] [address] Social History Tobacco Use Types [...] st Contact Info) Description 07/27/2024 12:50 PM ENGINEERING EXECUTIVE Appointment [facility] Imaging Services - Ultrasound [address] [address] [place] [address] [place] [address] 08/03/2024 1:00 PM ENGINEERING EXECUTIVE Office Visit [facility] Medical Group - DRYWALL FINISHER [address] [place] [phone] [place] [address] [place] [address] documented as of this encounter Goals Goal Patient Goal Type Associated Problems Recent Progress Patient-Stated? Author Yearly PCP visit Lifestyle Aster Willard, RN Note: Come into office for yearly wcc. Take recommended medication(s) Lifestyle Aster Willard RN documented as of this encounter Visit Diagnoses Diagnosis History of syncope Personal history of other specified diseases documented in this encounter Care Teams Clinical Training Specialist Relationship Specialty Start Date End Date Va Olivo MD PCP - General Pediatrics 12/08/17 documented as of this encounter
--- OUTSIDE RECORDS SUMMARY | 2024-07-22 08:25 | XMS_ITS | Encounter Summary ---
Author Organization [facility] Address [address] [facility] [place] [address] Care Team Providers Care Medical Collections Specialist Name Role Phone [facility] Primary Care Prov ider Encounter Details Date Type Department Care Team (Latest Contact Info) Description 02/17/2017 12:45 PM CDT - 02/17/2017 11:59 PM CDT Hospital Encounter [facility]ly [facility] Laboratory [address] [place] [address] Kaci Cheatham, WATER PUMPER-GRAIN CLEANER [address] [facility] [address] [place] [address] Discharge Disposition: Home or Self [...] st Contact Info) Description 07/27/2024 12:50 PM CEO NA Appointment [facility] Imaging Services - Ultrasound [address] [address] [place] [address] [place] [address] [place] [address] 08/03/2024 1:00 PM CEO NA Office Visit [facility] Medical Group - END WORKER [address] [place] [phone] [place] [address] [place] [address] [place] [address] documented as of this encounter Procedures Procedure [...] - 291 ng/mL 02/17/2017 1:05 PM CDT [facility] Blood BLOOD SPECIMEN / Unknown Venipuncture / Unknown 02/17/2017 12:45 PM CDT 02/17/2017 12:45 PM CDT Kaci Cheatham APRN-GRAIN CLEANER LAB - CHEMISTRY OR DERABLES Performing Organization Address [facility] Co de Phone Number [facility] [address] [place] [address] * (ABNORMAL) VITAMIN D (25-HYDROXY) (02/17/2017 12:45 PM CDT) Vitamin D, 25 Hydroxy 9.59(L) 30 - 100 ng/mL 02/17/2017 5:00 PM CDT [facility] Blood BLOOD SPECIMEN / Unknown Venipuncture / Unknown 02/17/2017 12:45 PM CDT 02/17/2017 12:45 PM CDT Narrative [facility] - 02/17/2017 5:00 PM CDT Vitamin D Status: ?Deficiency ? <20 ? ng/mL ?Insufficiency ?? 20-30 ??ng/mL ?Sufficiency ? 30-100 ng/mL ?Toxicity ? >100 ?ng/mL Kaci Cheatham APRN-GRAIN CLEANER LAB - CHEMISTRY OR DERABLES Performing Organization Address [facility] Co de Phone Number [facility] [address] [place] [address] documented in this encounter Visit Diagnoses Diagnosis Encounter for routine and child vision and hearing testing Routine or child health check documented in this encounter Care Teams Medical Collections Specialist Relationship Specialty Start Date End Date [facility] [address] [facility] [address] [place] [address] PCP - General 02/06/10 12/07/17 documented as of this encounter
--- OUTSIDE RECORDS SUMMARY | 2024-07-22 08:25 | XMS_ITS | Encounter Summary ---
Author Organization [facility] Address [address] [facility] [place] [address] Care Team Providers Care Hydroelectric Systems Technician Name Role Phone Va Olivo MD Primary Care Provider [phone] Susan Castañeda RN Unavailable Unavailabl e Encounter Details Date Type Department Care Team (Late st Contact Info) Description 11/17/2019 Patient Outreach [facility]s [address] [place] [address] Susan Castañeda, RN Social History [...] Bello , patient is enrolled in the [facility] program. Welcome letter mailed to the home. [facility] brochures, handouts on Decreasing Sugary Drinks, Inhaler Mistakes and our magnet will be mailed when available. documented in this encounter Plan of Treatment Upcoming Encounters Date Type Department Care Team (Late st Contact Info) Description 07/27/2024 12:50 PM PHARMACY TECHNICIAN Appointment [facility] Imaging Services - Ultrasound [address] [facility] [address] [place] [address] [place] [address] [facility] [address] [place] [address] 08/03/2024 1:00 PM PHARMACY TECHNICIAN Office Visit [facility] Group - SLEEP MANAGER [address] [place] [phone] [place] [address] [facility] [address] [place], [place] [phone] documented as of this encounter Visit Diagnoses Not on filedocumented in this encounter Care Teams Hydroelectric Systems Technician Relationship Specialty Start Date End Date Va Olivo MD PCP - General Pediatrics 12/08/17 Susan Castañeda, RN Registered Nurse Care Management 11/04/19 02/01/20 documented as of this encounter
--- OUTSIDE RECORDS SUMMARY | 2024-07-22 08:25 | XMS_ITS | Encounter Summary ---
Author Organization [facility] Address [address] [facility] [place] [address] Care Team Providers Care Firefighting Equipment Specialist Name Role Phone [facility] Primary Care [facility] ider Reason for Visit * Reason Comments Refill Request Encounter Details Date Type Department Care Team (Late st Contact Info) Description 02/18/2017 Refill [facility] [address] [facility] [address] [place] [address] [place] [address] [facility] [place] [address] [place] [address] Refill Request Social History Tobacco Use Types Packs/Day Years Used Date Smoking Tobacco: Never Assessed Sex and Gender Information Value Date Recorded Sex Assigned at Not on file Gender Identity Not on file Sexual Orientation Not on file documented as of this encounter Plan of Treatment Upcoming Encounters Date Type Department Care Team (Late Contact Info) Description 07/27/2024 12:50 PM FRONT END JAVA DEVELOPER Appointment [facility] Imaging Services - Ultrasound [address] [facility] [address] [place] [address] [place] [address] [place] [address] 08/03/2024 1:00 PM FRONT END JAVA DEVELOPER Office [facility] - BUFFET WAITER/WAITRESS [address] [place] [phone] [place] [address] [place] [address] documented as of this encounter Visit Diagnoses Not on filedocumented in this encounter Care Teams Firefighting Equipment Specialist Relationship Specialty Start Date End Date [facility], Group [address] [facility] [place] [address] [place] [address] PCP - General 02/06/10 12/07/17 documented as of this encounter
--- OUTSIDE RECORDS SUMMARY | 2024-07-22 08:25 | XMS_ITS | Encounter Summary ---
Author Organization [facility] Address [address] [place] [address] Care Team Providers Care Thermodynamics Professor Name Role Phone [facility], [facility] Primary Care [facility] ider Reason for Visit * Reason Onset Date Comments MEDICATION REFILL 03/30/2017 Encounter Details Date Type Department Care Team (Late st Contact Info) Description 03/30/2017 Refill [facility] [address], [address] [place] [address] [place] [address] [address] MEDICATION REFILL Social History Tobacco [...] st Contact Info) Description 07/27/2024 12:50 PM FINAL INSPECTOR MOVEMENT ASSEMBLY Appointment [facility] Imaging Services - Ultrasound [address] [facility] [address] [place] [address] [place] [address] [place], [place] [id number] 08/03/2024 1:00 PM FINAL INSPECTOR MOVEMENT ASSEMBLY Office Visit [facility] Medical Group - FISHING TOOL SUPERVISOR [address] [place] [phone] [place] [address] [place] [address] documented as of this encounter Visit Diagnoses Not on filedocumented in this encounter Care Teams Thermodynamics Professor Relationship Specialty Start Date End Date [facility], [facility] [address] [facility] [address] [place] [address] PCP - General 02/06/10 12/07/17 documented as of this encounter
--- OUTSIDE RECORDS SUMMARY | 2024-07-22 08:25 | XMS_ITS | Encounter Summary ---
Author Organization [facility] Address [address] [facility] [place] [address] Care Team Providers Care Warp Hanger Name Role Phone Va Olivo MD Primary Care Provider [phone] Reason for Visit * Reason Onset Date Comments Forms 02/21/2021 Physical form re parmjit for nut picker. Encounter Details Date Type Department Care Team (Late st Contact Info) Description 02/21/2021 Telephone [facility] Pediatrics [address] [place] [address] Shadia Shafer RN Forms (Physical form ready for nut picker.) Social History Tobacco Use Types Packs/Day Years [...] that the physical form is ready for nut picker. I also scanned the form into the chart. Shadia MACDONALD RN documented in this encounter Plan of Treatment Upcoming Encounters Date Type Department Care Team (Late st Contact Info) Description 07/27/2024 12:50 PM CASTING MACHINE SET UP OPERATOR Appointment [facility] Imaging Services - Ultrasound [address] [facility] [address] [place], [place] [phone] [place] [address] [place], [place] [address] 08/03/2024 1:00 PM CASTING MACHINE SET UP OPERATOR Office Visit [facility] Group - CASE PLANNER [address] [place] [phone] [place] [address] [facility] [address] [place] [address] documented as of this encounter Goals Goal Patient Goal Type Associated Problems Recent Progress Patient-Stated? Author Yearly PCP visit Lifestyle No Aster Garnica, RN Note: Come into office for yearly wcc. Take recommended medication(s) Lifestyle No Aster Garnica, RN documented as of this encounter Visit Diagnoses Not on filedocumented in this encounter Care Teams Warp Hanger Relationship Specialty Start Date End Date Va Olivo MD PCP - General Pediatrics 12/08/17 documented as of this encounter
--- OUTSIDE RECORDS SUMMARY | 2024-07-22 08:25 | XMS_ITS | Encounter Summary ---
Author Organization [facility] Address [address] [facility] [place] [address] Care Team Providers Care Senior Business Consultant Name Role Phone [facility], [facility] Primary Care Prov ider Reason for Visit * Reason Comments Well Child Check Encounter Details Date Type Department Care Team (Latest Contact Info) Description 02/17/2017 10:00 AM CDT - 02/17/2017 12:44 PM T Hospital Encounter [facility]s [address] [place] [address] Kaci Cheatham, FORREST-VENKATESH [address] [place] [address] Discharge Disposition: Home or Self [...] Discharge Instructions * Patient Instructions* Kaci Cheatham, CHEMIST-LAP CUTTER TRUER OPERATOR - 02/17/2017 11:36 AM CDT Images from the original note were not included. YOUR GROWING CHILD: ELEVEN to FOURTEEN YEARS Child???s Name: RxRevu Today???s Date: 02/17/2017 Wt Readings from Last 1 Encounters: 02/17/17 37.7 kg (83 lb 2 oz) (25 %, Z= -0.67)* * Growth percentiles are based on [facility] 2-20 Years data. Ht Readings from Last 1 Encounters: 02/17/17 1.48 m (4' 10.27 ) (24 %, Z= -0.71)* * Growth percentiles are based on [facility] 2-20 Years data. Lab results: We [...] share in (or continuing to share in) generation engineering technologist. Also increase awareness about community issues and [...] (Z= -0.67) based on CDC 2-20 Years bhustw-but-yiq data using vitals from 02/17/2017. 24 %ile (Z= -0.71) based on CDC 2-20 Years scbogkm-dyu-aym data using vitals from 02/17/2017. Body mass [...] all joints SKIN: no rashes or lesions SCALE ASSEMBLY SET UP WORKER: nl tone, symmetrical limbs, no gross deficits [...] st Contact Info) Description 07/27/2024 12:50 PM HEAD OF LOSS PREVENTION Appointment [facility] Imaging Services - Ultrasound [address] [facility] [address] [facility] [address] [place] [address] [place] [address] [place] [address] 08/03/2024 1:00 PM HEAD OF LOSS PREVENTION Office Visit [facility] Medical Group - SHEET METAL SMITH [address] [place] [address] [place] [address] [address] documented as of this encounter Results * FERRITIN (02/17/2017 12:45 PM CDT) [facility] Ferritin 40 10 - 291 ng/mL 02/17/2017 1:05 PM CDT [facility] Blood BLOOD SPECIMEN / Unknown Venipuncture / Unknown 02/17/2017 12:45 PM CDT 02/17/2017 12:45 PM CDT Kaci Cheatham APRN-LAP CUTTER TRUER OPERATOR LAB - CHEMISTRY OR DERABLES Performing Organization Address [facility] de Phone Number [facility] [address] [place] [address] * (ABNORMAL) VITAMIN D (25-HYDROXY) (02/17/2017 12:45 PM CDT) [facility] Vitamin D, 25 Hydroxy 9.59(L) 30 - 100 ng/mL 02/17/2017 5:00 PM CDT [facility] Blood BLOOD SPECIMEN / Unknown Venipuncture / Unknown 02/17/2017 12:45 PM CDT 02/17/2017 12:45 PM CDT Narrative [facility] - 02/17/2017 5:00 PM CDT Vitamin D Status: ?Deficiency ? <20 ? ng/mL ?Insufficiency ?? 20-30 ??ng/mL ?Sufficiency ? 30-100 ng/mL ?Toxicity ? >100 ?ng/mL Kaci Cheatham CHEMIST-LAP CUTTER TRUER OPERATOR LAB - CHEMISTRY OR DERABLES Performing Organization Address [facility] de Phone Number [facility] [address] [place] [address] documented in this encounter Visit Diagnoses Diagnosis Encounter for routine and child vision and hearing testing- Primary Routine or child health check Need for vaccination [...] documented in this encounter Care Teams Senior Business Consultant Relationship Specialty Start Date End Date [facility], [facility] [address] [place] [address] PCP - General 02/06/10 12/07/17 documented as of this encounter
--- OUTSIDE RECORDS SUMMARY | 2024-07-22 08:25 | XMS_ITS | Encounter Summary ---
Author Organization [facility] Address [address] [place] [address] Care Team Providers Care Manager Hvac Name Role Phone Va Olivo MD Primary Care Provider [phone] Reason for Visit * Reason Onset Date Comments MEDICATION REFILL 04/14/2022 Encounter Details Date Type Department Care Team (Late st Contact Info) Description 04/14/2022 Refill [facility]s [address] , [address] [place] [address] Va Olivo MD [address] [facility] [phone] [place] [address] MEDICATION REFILL Social History Tobacco [...] st Contact Info) Description 07/27/2024 12:50 PM BURNT LIME DRAWER Appointment [facility] Imaging Services - Ultrasound [address] [facility] 104 [place] [address] [place] [address] [place] [address] 08/03/2024 1:00 PM BURNT LIME DRAWER Office Visit [facility] Group - CHIEF DIGITAL MEDIA OFFICER [address] [place] [phone] [place] [address] [place], [place] [address] documented as of this encounter Goals Goal Patient Goal Type Associated Problems Recent Progress Patient-Stated? Author Yearly PCP visit Lifestyle Aster Willard RN Note: Come into office for yearly wcc. Take recommended medication(s) Lifestyle No Aster Garnica RN documented as of this encounter Visit Diagnoses Diagnosis Mild intermittent asthma without complication (HCC) Unspecified asthma documented in this encounter Care Teams Manager Hvac Relationship Specialty Start Date End Date Va Olivo MD PCP - General Pediatrics 12/08/17 documented as of this encounter
--- OUTSIDE RECORDS SUMMARY | 2024-07-22 08:25 | XMS_ITS | Encounter Summary ---
Author Organization [facility] Address [address] [facility] [place] [address] Care Team Providers Care Command And Control Specialist Name Role Phone [facility], [facility] Primary Care Prov ider Reason for Visit * Reason Onset Date Comments Follow-up 12/22/2014 Encounter Details Date Type Department Care Team (Late st Contact Info) Description 12/22/2014 Telephone [facility] Pediatrics [address], [address] [place] [address] [facility], Group [id number] [place] [address] [address] [place] [address] Follow-up Social History Tobacco Use [...] for EEG adn for cardiology appt in [facility], adn sent note to mo with this information. documented in this encounter Plan of Treatment Upcoming Encounters Date Type Department Care Team (Late st Contact Info) Description 07/27/2024 12:50 PM TECHNICAL COMMUNICATION TEACHER Appointment [facility] Imaging Services - Ultrasound [address] [facility] [address] [place] [address] [place] [address] [place] [address] 08/03/2024 1:00 PM TECHNICAL COMMUNICATION TEACHER Office Visit [facility] Group - SOFTWARE INTEGRATION DEVELOPER [address] [place] [phone] [place] [address] [place] [address] documented as of this encounter Visit Diagnoses Diagnosis History of syncope- Primary Personal history of other specified diseases documented in this encounter Care Teams Command And Control Specialist Relationship Specialty Start Date End Date [facility], [facility] [address] [facility] [address] [place] [address] PCP - General 02/06/10 12/07/17 documented as of this encounter
--- OUTSIDE RECORDS SUMMARY | 2024-07-22 08:25 | XMS_ITS | Encounter Summary ---
Author Organization [facility] Address [address] [facility] [place] [address] Care Team Providers Care Tuck Pointer Helper Name Role Phone Va Olivo MD Primary Care Provider [phone] Reason for Visit * Reason Comments Well Child Check Question about control Encounter Details Date Type Department Care Team (Latest Contact Info) Description 11/29/2021 10:00 AM CDT - 11/29/2021 10:52 AM T Hospital Encounter [facility] [address] , [address] [place] [address] Va Olivo MD [address] [place] [address] [phone] [place] [address] Discharge Disposition: Home or Self [...] CHILD: FIFTEEN to EIGHTEEN YEARS Child???s Name: [employer] Today???s Date: 11/29/2021 Wt Readings from Last [...] 01/24/2009 If you need to reach a boilermaker ship after normal business hours, please call our [...] share in (or continuing to share in) miller apprentice. Also increase awareness about community issues and [...] note were not included. 16 year old [facility] Interval History: Greyson Kevin is a 16 year old female who is accompanied to today's visit by mom for a 16 year old checkup Parental/Patient Concerns: REferral to PT for gracia splints - working with principal trainer with track hasn't helped Started on [...] been: -living on the street, homeless or alf -recently released from a skilled nursing, group home, or half-way -known to have tuberculosis, AIDS or is immunocompromised -comes from or has visited an area known to have tuberculosis -abuses drugs or is an IV drug user -is a migrant farmworkers -or has had a positive PPD or [...] -0.45) based on CDC (Girls, 2-20 Years) Fkncseb-zkn-wak data based on Stature recorded on 11/29/2021. Weight: 51 %ile (Z= 0.03) based on CDC (Girls, 2-20 Years) fittdy-mti-afe data using vitals from 11/29/2021. BMI: 59 %ile (Z= 0.23) based on [facility] (Girls, 2-20 Years) BMI-for-age based on BMI [...] tibial stress syndrome, unspecified laterality, initial encounter S86.898S Ailin referral to Physical Therapy 3. Poor [...] 01/24/2009 If you need to reach a boilermaker ship after normal business hours, please call our [...] share in (or continuing to share in) miller apprentice. Also increase awareness about community issues and [...] st Contact Info) Description 07/27/2024 12:50 PM VINYL WELDER AND FABRICATOR Appointment [facility] Imaging Services - Ultrasound [address] [address] [place] [address] [place] [address] 08/03/2024 1:00 PM VINYL WELDER AND FABRICATOR Office Visit [facility] Health Medical Group - HUMAN RESOURCES REPRESENTATIVE [address] [place] [phone] [place] [address] [place] [address] documented as of this encounter [...] origin documented in this encounter Care Teams Tuck Pointer Helper Relationship Specialty Start Date End Date Va Olivo MD PCP - General Pediatrics 12/08/17 documented as of this encounter
--- OUTSIDE RECORDS SUMMARY | 2024-07-22 08:25 | XMS_ITS | Encounter Summary ---
Author Organization [facility] Address [address] [place] [address] Care Team Providers Care Cracker And Cookie Machine Operator Name Role Phone Va Olivo MD Primary Care Provider [phone] Reason for Visit * Reason Onset Date Comments Sports Physical 02/08/2021 Encounter Details Date Type Department Care Team (Late st Contact Info) Description 02/08/2021 Telephone [facility] [address], [address] [place] [address] Gely Mares, RN Sports Physical [...] st Contact Info) Description 07/27/2024 12:50 PM BEHAVIORAL CONSULTANT Appointment [facility] Imaging Services - Ultrasound [address] [facility] [address] [place] [address] [place] [address] [place] [address] 08/03/2024 1:00 PM BEHAVIORAL CONSULTANT Office Visit [facility] Medical Group - MOTION STUDY ENGINEER [address] [place] [phone] [place] [address] [place], [place] [phone] documented as of this encounter Goals Goal Patient Goal Type Associated Problems Recent Progress Patient-Stated? Author Yearly PCP visit Lifestyle Aster Willard, RN Note: Come into office for yearly wcc. Take recommended medication(s) Lifestyle No Aster Garnica, ALEXA documented as of this encounter Visit Diagnoses Not on filedocumented in this encounter Care Teams Cracker And Cookie Machine Operator Relationship Specialty Start Date End Date Va Olivo MD PCP - General Pediatrics 12/08/17 documented as of this encounter
--- OUTSIDE RECORDS SUMMARY | 2024-07-22 08:25 | XMS_ITS | Encounter Summary ---
Author Organization [facility] Address [address] [facility] [place] [address] Care Team Providers Care Mechanical Systems Designer Name Role Phone Va Olivo MD Primary Care Provider Encounter Details Date Type Department Care Team (Late st Contact Info) Description 02/21/2019 Orders Only [facility] Pediatrics [address], [address] [place] [address] Va Olivo MD [address] [place] [address] [phone] [place] [address] Social History Tobacco Use Types Packs/Day Years Used Date Smoking Tobacco: Never Assessed Sex and Gender Information Value Date Recorded Sex Assigned at Not on file Gender Identity Not on file Sexual Orientation Not on file documented as of this encounter Plan of Treatment Upcoming Encounters Date Type Department Care Team (Late st Contact Info) Description 07/27/2024 12:50 PM TRANSPORTATION DEPARTMENT SUPERVISOR Appointment [facility] Imaging Services - Ultrasound [address] [address] [place] [address] [place] [address] 08/03/2024 1:00 PM TRANSPORTATION DEPARTMENT SUPERVISOR Office Visit [facility] Medical [facility] - MOLD REPAIRER [address] [place] [phone] [place] [address] [place] [address] documented as of this encounter Visit Diagnoses Not on filedocumented in this encounter Care Teams Mechanical Systems Designer Relationship Specialty Start Date End Date Va Olivo MD PCP - General Pediatrics 12/08/17 documented as of this encounter
--- OUTSIDE RECORDS SUMMARY | 2024-07-22 08:25 | XMS_ITS | Encounter Summary ---
Author Organization [facility] Address [address] [facility] [place] [address] Care Team Providers Care Pipeline Technician Name Role Phone Va Olivo MD Primary Care Provider [phone] Susan Castañeda RN Unavailable Unavailabl e Encounter Details Date Type Department Care Team (Late st Contact Info) Description 12/23/2019 Patient Outreach [facility] Pediatrics [address] , [address] [place] [address] Susan Castañeda, RN Social History [...] Patient Outreach + Patient chart reviewed per [facility] protocol [facility] diagnosis:asthma . Contact type:phone call . Condition check and education:I called to speak to mom regarding Greyson's enrollment in [facility]. The only number we have for mom [...] Followed by (specialty clinics): none [facility]:02-17-19 . Future appointments/Follow-up: No future appointments. Susan Castañeda public safety dispatcher [facility] Nurse Tile Mason documented in this encounter Plan of Treatment Upcoming Encounters Date Type Department Care Team (Late st Contact Info) Description 07/27/2024 12:50 PM ENVIRONMENTAL LEAD Appointment [facility] Imaging Services - Ultrasound [address] [address] [place] [address] [place], [place] [phone] 08/03/2024 1:00 PM ENVIRONMENTAL LEAD Office Visit [facility] - DECORATIVE ENGRAVER APPRENTICE [address] [place] [phone] [place] [address] [place] [id number] documented as of this encounter Visit Diagnoses Not on filedocumented in this encounter Care Teams Pipeline Technician Relationship Specialty Start Date End Date Va Olivo MD PCP - General Pediatrics 12/08/17 Susan Castañeda, RN Registered Nurse Care Management 11/04/19 02/01/20 documented as of this encounter
--- OUTSIDE RECORDS SUMMARY | 2024-07-22 08:25 | XMS_ITS | Encounter Summary ---
Author Organization [facility] Address [address] [place] [address] Care Team Providers Care Senior Systems Engineer Name Role Phone Va Olivo MD Primary Care Provider [phone] Susan Castañeda RN Unavailable Unavailabl e Encounter Details Date Type Department Care Team (Late st Contact Info) Description 2019 Patient Outreach [facility] Pediatrics [address] [place] [address] Susan Castañeda, RN Social History Tobacco Use Types Packs/Day Years Used Date Smoking Tobacco: Never Assessed Sex and Gender Information Value Date Recorded Sex Assigned at Not on file Gender Identity Not on file Sexual Orientation Not on file documented as of this encounter Progress Notes * Susan Castañeda RN - 2019 1:42 PM CDT Chart reviewed per [facility] protocol for possible enrollment, meets criteria. Enrollment form sent to [facility], await reply. documented in this encounter Plan of Treatment Upcoming Encounters Date Type Department Care Team (Late st Contact Info) Description 07/27/2024 12:50 PM SALES REPRESENTATIVE PUBLICATIONS Appointment [facility] Imaging Services - Ultrasound [address] [facility] [address] [place] [address] [place] [address] [place] [phone] 08/03/2024 1:00 PM SALES REPRESENTATIVE PUBLICATIONS Office Visit [facility] - FRUIT AND VEGETABLE PACKER [address] [place] [address] [place] [address] [place] [address] [id number] documented as of this encounter Visit Diagnoses Not on filedocumented in this encounter Care Teams Senior Systems Engineer Relationship Specialty Start Date End Date Va Oliov MD PCP - General Pediatrics 12/08/17 Susan Castañeda, RN Registered Nurse Care Management 11/04/19 02/01/20 documented as of this encounter
--- OUTSIDE RECORDS SUMMARY | 2024-07-22 08:25 | XMS_ITS | Encounter Summary ---
Author Organization [facility] Address [address] [facility] [place] [address] Care Team Providers Care Metal Bonding Press Operator Name Role Phone Va Olivo MD Primary Care Provider [phone] Reason for Visit * Reason Onset Date Comments Forms 02/08/2021 r/t sports physi debra Encounter Details Date Type Department Care Team (Late st Contact Info) Description 02/08/2021 Telephone [facility] Pediatrics [address] , [address] [place] [address] Gely Mares RN Forms (r/t [...] Mom states she is waiting for assistant men's lacrosse coach to send what is needed and [...] st Contact Info) Description 07/27/2024 12:50 PM EVENT SALES ASSISTANT Appointment [facility] Imaging Services - Ultrasound [address] [address] [place] [address] [place] [address] 08/03/2024 1:00 PM EVENT SALES ASSISTANT Office Visit [facility] Group - SENIOR C SOFTWARE ENGINEER [address] [place] [phone] [place] [address] [address] documented as of this encounter Goals Goal Patient Goal Type Associated Problems Recent Progress Patient-Stated? Author Yearly PCP visit Lifestyle No Aster Garnica, RN Note: Come into office for yearly wcc. Take recommended medication(s) Lifestyle No Aster Garnica, RN documented as of this encounter Visit Diagnoses Not on filedocumented in this encounter Care Teams Metal Bonding Press Operator Relationship Specialty Start Date End Date Va Olivo MD PCP - General Pediatrics 12/08/17 documented as of this encounter
--- OUTSIDE RECORDS SUMMARY | 2024-07-22 08:25 | XMS_ITS | Encounter Summary ---
Author Organization [facility] Address [address] [facility] [place] [address] Care Team Providers Care Sales Agent Financial Report Service Name Role Phone Va Olivo MD Primary Care Provider [phone] Reason for Visit * Reason Onset Date Comments Results 11/06/2020 Encounter Details Date Type Department Care Team (Late st Contact Info) Description 11/06/2020 Telephone [facility] Pediatrics [address] [place] [address] Gely Mares, RN Results Social [...] st Contact Info) Description 07/27/2024 12:50 PM INVENTORY PLANNER Appointment [facility] Imaging Services - Ultrasound [address] [phone] [place] [address] [address] [facility] [address] [place] [address] 08/03/2024 1:00 PM INVENTORY PLANNER Office Visit [facility] Medical Group - EMERGENCY COMMUNICATIONS OFFICER [address] [place] [address] [place] [address] [facility] [address] [address] documented as of this encounter Goals Goal Patient Goal Type Associated Problems Recent Progress Patient-Stated? Author Yearly PCP visit Lifestyle No Aster Garnica, RN Note: Come into office for yearly wcc. Take recommended medication(s) Lifestyle No Aster Garnica RN documented as of this encounter Visit Diagnoses Not on filedocumented in this encounter Care Teams Sales Agent Financial Report Service Relationship Specialty Start Date End Date Va Olivo MD PCP - General Pediatrics 12/08/17 documented as of this encounter
--- OUTSIDE RECORDS SUMMARY | 2024-07-22 08:25 | XMS_ITS | Encounter Summary ---
Author Organization [facility] Address [address] [place] [address] Care Team Providers Care Wool Hat Hydraulicker Name Role Phone Va Olivo MD Primary Care Provider [phone] Reason for Visit * Reason Comments Well Women Exam Encounter Details Date Type Department Care Team (Latest Contact Info) Description 04/14/2022 1:45 PM CDT Office Visit [facility] Medical [facility] - PRESSURE SUPERVISOR [address] [address] Geno Perea APRN-QUAL RESEARCH MANAGER [address] [phone] Well woman exam (Primary Dx); Screening for [...] 04/14/2022 2:0 0 PM CDT Growth Chart: [facility] (Girls, 2- 20 Years) documented in [...] vaccine: yes Social: non smoker, student at [employer], 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 Some vaginal discharge, no itching or irritation, no dysuria, no odor Past Medical History: Diagnosis Date ??? Anxiety disorder 2017 ??? Chlamydia 09/2021 ??? Depression 2017 ??? Gonorrhea 09/2021 ??? Mild intermittent asthma, uncomplicated ??? Seizure (CMS/HCC) happened thru out [employer] Past Surgical History: Procedure Laterality Date [...] any lesions or abnormalities. Normal [place]'s and [place]'s. Vagina: Moist, pink rugae without any lesions. [...] st Contact Info) Description 07/27/2024 12:50 PM DATA CENTER PROJECT MANAGER Appointment [facility] Imaging Services - Ultrasound [address] [place] [address] [place] [address] [place] [address] 08/03/2024 1:00 PM DATA CENTER PROJECT MANAGER Office Visit [facility] - PRESSURE SUPERVISOR [address] [place] [phone] [place] [address] [place] [address] Scheduled Orders Name Type Priority Associated Diagnoses [...] Resulting Agency Comment Lab [facility] [address] [facility] ??Jared FOOTE [id number] Geno Perea REAL ESTATE FIRM MANAGER-QUAL RESEARCH MANAGER LAB - MICROBIOLOG Y ORDERABLES [facility] INSURANCE BILL [address] [place] [address] * HCG URINE QUALITATIVE - POINT OF CARE (AMB) STL (04/14/2022) HCG Qual Urine Negative Negative HCG Urine QC NEG negative NEGATIVE - POSITIVE HCG Urine QC POS positive NEGATIVE - POSITIVE Expiration Date 2023-06-11 Lot # [id number] Urine URINE / Unknown 04/14/2022 Geno Perea REAL ESTATE FIRM MANAGER-QUAL RESEARCH MANAGER LAB - POINT OF CA RE ORDERABLES documented in this encounter Visit Diagnoses Diagnosis Well woman exam- Primary Routine general medical examination at a health care facility Screening for venereal disease Screening examination for venereal disease Primary oligomenorrhea Scanty or infrequent menstruation documented in this encounter Care Teams Wool Hat Hydraulicker Relationship Specialty Start Date End Date Va Olivo MD PCP - General Pediatrics 12/08/17 documented as of this encounter
--- OUTSIDE RECORDS SUMMARY | 2024-07-22 08:25 | XMS_ITS | Encounter Summary ---
Author Organization [facility] Address [address] [facility] [place] [address] Care Team Providers Care Photographic Engineer Name Role Phone Va Olivo MD Primary Care Provider [phone] Reason for Visit * Reason Onset Date Comments MEDICATION REFILL 04/14/2022 Encounter Details Date Type Department Care Team (Late st Contact Info) Description 04/14/2022 Telephone [facility] Pediatrics [address] , [address] [place] [address] Va Olivo MD [address] [facility] [phone] [place] [address] MEDICATION REFILL Social History Tobacco [...] st Contact Info) Description 07/27/2024 12:50 PM EEG TECH Appointment [facility] Imaging Services - Ultrasound [address] [facility] 104 [place] [address] [place] [address] [place] [address] 08/03/2024 1:00 PM EEG TECH Office Visit [facility] - AUTOCLAVE OPERATOR [address] [place] [phone] [place] [address] [place], [place] [phone] documented as of this encounter Goals Goal Patient Goal Type Associated Problems Recent Progress Patient-Stated? Author Yearly PCP visit Lifestyle Aster Willard, RN Note: Come into office for yearly wcc. Take recommended medication(s) Lifestyle No Aster Garnica, RN documented as of this encounter Visit Diagnoses Not on filedocumented in this encounter Care Teams Photographic Engineer Relationship Specialty Start Date End Date Va Olivo MD PCP - General Pediatrics 12/08/17 documented as of this encounter
--- OUTSIDE RECORDS SUMMARY | 2024-07-22 08:25 | XMS_ITS | Encounter Summary ---
Author Organization [facility] Address [address] [facility] [place] [address] Care Team Providers Care Rubber Washer Name Role Phone Va Olivo MD Primary Care Provider [phone] Reason for Visit * Reason Comments 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 Problem bilateral queen s plints Encounter Details Date Type Department Care Team (Latest Contact Info) Description 12/08/2017 1:35 PM CDT - 12/08/2017 11:59 PM T Hospital Encounter [facility] Pediatrics [address] , [address] [place] [address] Va Olivo MD [address] [place] [address] [phone] [place] [address] Discharge Disposition: Home or Self [...] 12/08/2017 1:4 4 PM CDT Growth Chart: [facility] (Girls, 2- 20 Years) documented [...] st Contact Info) Description 07/27/2024 12:50 PM PAID SEARCH MANAGER Appointment [facility] Imaging Services - Ultrasound [address] [facility] [address] [place] [address] [place] [address] [facility] [address] [place] [address] 08/03/2024 1:00 PM PAID SEARCH MANAGER Office Visit [facility] - CAREER TECHNICAL EDUCATION TEACHER [address] [place] [phone] [place] [address] [facility] [address] [place] [address] documented as of this encounter Visit Diagnoses Diagnosis Queen splints, initial encounter- Primary Other injury of other muscle(s) and tendon(s) at lower leg level, left leg, initial encounter Other injury of other muscle(s) and tendon(s) at lower leg level, right leg, initial encounter Activity involving running Activities involving running documented in this encounter Care Teams Rubber Washer Relationship Specialty Start Date End Date Va Olivo MD PCP - General Pediatrics 12/08/17 documented as of this encounter
--- OUTSIDE RECORDS SUMMARY | 2024-07-22 08:25 | XMS_ITS | Encounter Summary ---
Author Organization [facility] Address [address] [facility] [place] [address] Care Team Providers Care Center Manager Name Role Phone Va Olivo MD Primary Care Provider [phone] Aster Garnica RN Unavailable Unavailable Encounter Details Date Type Department Care Team (Late st Contact Info) Description 02/02/2020 Patient Outreach [facility] Pediatrics [address] , [address] [place] [address] Aster Garnica RN Social History [...] Patient Outreach + Patient chart reviewed per [facility] protocol [facility] diagnosis: asthma Contact type: outgoing call to Nathaly payne Condition check and education: RN spoke to mom. Introduced myself and explained [facility] program to mom. Informed mom pt due for [facility], offered to schedule appt. Mom declined. Mom would like to opt out of program. Patient discharged from the [facility] program, paperwork sent to [facility] Bello , [...] Followed by (specialty clinics): none [facility] last [facility]: 02/17/2019 Future appointments/Follow-up: No future appointments. TORRES Caruso, RN [facility] Primary Care [facility] Nurse Mink Farmer documented in this encounter Plan of Treatment Upcoming Encounters Date Type Department Care Team (Late st Contact Info) Description 07/27/2024 12:50 PM VETERANS SERVICE REPRESENTATIVE Appointment [facility] Imaging Services - Ultrasound [address] [address] [place] [address] [place] [address] 08/03/2024 1:00 PM VETERANS SERVICE REPRESENTATIVE Office Visit [facility] - RN AMBULATORY [address] [place] [address] [place] [address] [place] [address] documented as of this encounter Goals Goal Patient Goal Type Associated Problems Recent Progress Patient-Stated? Author Yearly PCP visit Lifestyle No Aster Garnica, RN Note: Come into office for yearly wcc. Take recommended medication(s) Lifestyle No Aster Garnica, ALEXA documented as of this encounter Visit Diagnoses Not on filedocumented in this encounter Care Teams Center Manager Relationship Specialty Start Date End Date Va Olivo MD PCP - General Pediatrics 12/08/17 Aster Garnica, RN Registered Nurse Care Management 02/02/20 02/02/20 documented as of this encounter
--- OUTSIDE RECORDS SUMMARY | 2024-07-22 08:25 | XMS_ITS | Encounter Summary ---
Author Organization [facility] Address [address] [facility] [place] [place] [address] Care Team Providers Care Asphalt Still Operator Name Role Phone Va Olivo MD Primary Care Provider [phone] Encounter Details Date Type Department Care Team (Late st Contact Info) Description 02/15/2020 Patient Outreach [facility] Pediatrics [address] , [address] [place] [address] Susan Castañeda, RN Social History [...] Bello patient has been discharged from the [facility] program. May be re-enrolled at a later time provided they meet criteria. documented in this encounter Plan of Treatment Upcoming Encounters Date Type Department Care Team (Late st Contact Info) Description 07/27/2024 12:50 PM PHYSICAL CHEMIST Appointment [facility] Imaging Services - Ultrasound [address] [facility] [address] [place] [address] [place] [address] [facility] [address] [place], [place] [phone] 08/03/2024 1:00 PM PHYSICAL CHEMIST Office Visit [facility] Group - UMBRELLA CUTTER [address] [place] [phone] [place] [address] [facility] [address] [place], [place] [phone] documented as of this encounter Goals Goal Patient Goal Type Associated Problems Recent Progress Patient-Stated? Author Yearly PCP visit Lifestyle Aster Willard, RN Note: Come into office for yearly wcc. Take recommended medication(s) Lifestyle No Aster Garnica, RN documented as of this encounter Visit Diagnoses Not on filedocumented in this encounter Care Teams Asphalt Still Operator Relationship Specialty Start Date End Date Va Olivo MD PCP - General Pediatrics 12/08/17 documented as of this encounter
--- OUTSIDE RECORDS SUMMARY | 2024-07-22 08:25 | XMS_ITS | Encounter Summary ---
Author Organization [facility] Address [address] [place] [address] Care Team Providers Care Outbound Telemarketer Name Role Phone Va Olivo MD Primary Care Provider [phone] Reason for Visit * Reason Comments SUICIDAL * Auth/Cert Specialty Diagnoses / Procedures Referred By Julia lemus Referred To Contact Referral ID Status Reason Start Date Expiration Date Visits Re quested Visits Authorized [id number] 1 1 Encounter Details Date Type Department Care Team (Late st Contact Info) Description 09/23/2018 12:16 PM CDT - 09/23/2018 3:21 PM CDT Emergency ER at [address] [address] Vanessa Thompson MD [address] [place] [address] [place] [address] Current episode of major depressive disorder without [...] 09/23/2018 12: 09 PM CDT Growth Chart: [facility] (Girls, 2- 20 Years) documented in this encounter Discharge Instructions * Discharge Instructions* Vanessa Thompson MD - 09/23/2018 2:57 PM CDT Home with the father.. Routine early childhood services coordinator.Referred to [facility] as an outpatient. F/U with the PCP [...] if needed: ?? National Suicide Prevention Lifeline: (9-075-451-TALK) ?? Suicide Hotline: (0-316-AOGPIUC) ?? For a list of international numbers: https://save.org/find-help/international-resources/ Call your local emergency number (911 in the ) if: ?? Your child has done something on purpose to hurt himself or herself. ?? Your child tries to commit suicide. ?? Your child says he or she wants to commit suicide. When should I call my child's therapist or precipitation equipment tender? ?? Your child's depression gets worse. ?? [...] your child. The above information is an braiding machine tender only. It is not intended as medical advice for individual conditions or treatments. Talk to your doctor, nurse or pharmacist before following any medical regimen to see if it is safe and effective for you. ?? Copyright Ping[employer] 2018 Information is for End User's use only and may not be sold, redistributed or otherwise used for commercial purposes. All illustrations and images included in CareNotes?? are the copyrighted property of [employer], [employer]. or [place] documented in this encounter Medications at Time [...] this encounter Progress Notes * Arthur Smith APRN-SALES AND EVENTS COORDINATOR - 09/23/2018 2:08 PM CDT PSYCHIATRIC HISTORY & PHYSICAL Name: Jarad Kevin Admit Date: 09/23/2018 : 2005 Evaluation Date: 09/23/2018 [facility] #: [id number] Room #: 24 Attending Physician: No admitting provider for patient encounter. Identifying Data: This is a 12 year old old black female presented for evaluation of mood and behavior. Chief Complaint(s): I am stressed at school History of Present Illness: Patient presents to [facility] er with SI. Patient states that [...] discharge patient to home with resources for [facility]. Clinical Diagnosis: 1. Unspecified depressive disorder, moderate Based on the [place] Suicide Scale, Jarad Kevin's suicide risk level [...] PLTCOUNT 307 - No results for input(s): OODERTSQP0YV, JMYOGE4YM, COCAINE, ETHANOL in the last 86318 hours. Invalid input(s): XYUUAXOA9KG, TAADQMZI8PA, PLD8ZFBW78, LQQMTGRBTW2IG, XRWRPGHDT1AF No results for input(s): HCGQUAL, HCGURINE in the last 09376 hours. Recent Labs Component Name 12/21/14 1037 TSH 2.14 No results for input(s): RPR in the last 31756 hours. No results for input(s): COLORUA, CLARITYUA, SPECGRAVUA, PHUA, PROTEINUA, BLOODUA, LEUKOCYTEUA, NITRITEUA, GLUCOSEUA, KETONEUA, BILIRUBINUA, UROBILINUA, REDSUBUA, WBCUAAUTO, RBCUAAUTO, EPITHUAAUTO, BACTUAAUTO, YEASTUAAUTO, SPERMUAAUTO, CASTUAAUTO, CRYSUAAUTO, MUCUSUAAUTO in the last 00318 hours. No results for input(s): VPA in the last 81062 hours. No results for input(s): LITHIUM in the last 56244 hours. No results for input(s): CARBAMAZEPIN in the last 49599 hours. Drug / ETOH / Tobacco Use: [...] Provider contact with the patient: 09/23/2018 14:16 [facility] [id number] [facility] History Chief Complaint Patient presents [...] MD Call in 2 days As needed [address] [facility] [address] [place] [address] User Date/Time Vanessa Thompson MD [facility] Sep 23, 2018 2:49 PM * Jazmín Cid V. RN - 09/23/2018 1:[address] Yancey at bedside for medical exam. * Jazmín Cid V. RN - 09/23/2018 12:52 PM CDT Pt [...] st Contact Info) Description 07/27/2024 12:50 PM ROD AND TUBE STRAIGHTENER Appointment [facility] Health Imaging Services - Ultrasound [address] [facility] [address] [place] [address] [place] [address] [place] [address] 08/03/2024 1:00 PM ROD AND TUBE STRAIGHTENER Office Visit [facility] Medical [facility] - APRON WORKER [address] [place] [address] [place] [address] [place] [address] documented as of this encounter Visit Diagnoses Diagnosis Current episode of major depressive disorder without prior episode, unspecified depression episode severity- Primary documented in this encounter Care Teams Outbound Telemarketer Relationship Specialty Start Date End Date Va Olivo MD PCP - General Pediatrics 12/08/17 documented as of this encounter
--- OUTSIDE RECORDS SUMMARY | 2024-07-22 08:25 | XMS_ITS | Encounter Summary ---
Author Organization [facility] Address [address] [facility] [place] [address] Care Team Providers Care Pillowcase Sewer Name Role Phone Va Olivo MD Primary Care Provider [phone] Reason for Visit * Reason Onset Date Comments MEDICATION REFILL 02/21/2019 Encounter Details Date Type Department Care Team (Late Contact Info) Description 02/21/2019 Refill [facility] Pediatrics [address] , [address] [place], [place] [id number] Va Olivo MD [address] [facility] [address] [place] [address] MEDICATION REFILL Social History Tobacco Use Types Packs/Day Years Used Date Smoking Tobacco: Never Assessed Sex and Gender Information Value Date Recorded Sex Assigned at Not on file Gender Identity Not on file Sexual Orientation Not on file documented as of this encounter Plan of Treatment Upcoming Encounters Date Type Department Care Team (Late Contact Info) Description 07/27/2024 12:50 PM BUILDING SUPPLIES SALESPERSON RETAIL Appointment [facility] Imaging Services - Ultrasound [address] [facility] [address] [place] [address] [place] [address] [place] [address] 08/03/2024 1:00 PM BUILDING SUPPLIES SALESPERSON RETAIL Office Visit [facility] Medical Group - TAPERING MACHINE OPERATOR [address] [place] [address] [place] [address] [place] [address] documented as of this encounter Visit Diagnoses Diagnosis Mild persistent asthma without complication (HCC) Unspecified asthma documented in this encounter Care Teams Pillowcase Sewer Relationship Specialty Start Date End Date Va Olivo MD PCP - General Pediatrics 12/08/17 documented as of this encounter
--- OUTSIDE RECORDS SUMMARY | 2024-07-22 08:25 | XMS_ITS | Encounter Summary ---
Author Organization [facility] Address [address] [place] [address] Care Team Providers Care Bank Consultant Name Role Phone [facility], [facility] Primary Care Prov ider Reason for Visit * Reason Comments Well Child Check Encounter Details Date Type Department Care Team (Latest Contact Info) Description 02/01/2016 2:00 PM CDT - 02/01/2016 11:59 PM T Hospital Encounter [facility] Pediatrics [address], [address] [place] [address] [place] [address] [facility] [address] [place] [address] Discharge Disposition: Home or Self [...] 02/01/2016 2:3 5 PM CDT Growth Chart: [facility] (Girls, 2- 20 Years) documented in this [...] time alone or with friends. ?? 2015 [employer]. Information is for End User's use only and may not be sold, redistributed or otherwise used for commercial purposes. All illustrations and images included in CareNotes?? are the copyrighted property of [employer]. or [employer]. The above information is an health aide only. It is not intended as [...] Hong MD - 02/01/2016 2:50 PM CDT [place] [employer] Preparticipation Sports/School Examination Journie [...] 12%ile (Z=-1.18) based on CDC 2-20 Years lrudcpk-dsw-evk data using vitals from 02/01/2016. 18%ile (Z=-0.90) based on CDC 2-20 Years jwzrbb-adu-wgd data using vitals from 02/01/2016. Body mass [...] Z00.129 2. Need for vaccination Z23 Tdap (xpodagr-vpccguowxn-kuemi pertussis) (BOOSTRIX) (7y+) injection 0.5 mL ninevalent HPV (GARDASIL 9) injection 0.5 mL meningococcal vaccine with DIPHTHERIA (MENACTRA) injection 0.5 mL 3. Encounter for routine infant and child vision [...] Recommendations: Orders Placed This Encounter ??? Tdap (sifpiut-tntticqyqs-angnw pertussis) (BOOSTRIX) (7y+) injection 0.5 mL Sig: [...] Contact Info) Description 07/27/2024 12:50 PM SENIOR IT AUDITOR Appointment [facility] Imaging Services - Ultrasound [address] [facility] [address] [place] [address] [place] [address] [place] [address] 08/03/2024 1:00 PM SENIOR IT AUDITOR Office Visit [facility] Medical Group - GARBAGE COLLECTION SUPERVISOR [address] [place] [address] [place] [address] [place] [address] documented as of this encounter Visit Diagnoses Diagnosis Well adolescent visit- Primary Routine infant or child health check Need for vaccination Need for prophylactic vaccination and inoculation against unspecified single disease Encounter for routine and child vision and hearing testing Routine or child health check History of asthma Personal history of other diseases of respiratory system Examination of ears and hearing Examination of eyes and vision documented in this encounter Care Teams Bank Consultant Relationship Specialty Start Date End Date [facility], [facility] [address] [place] [address] PCP - General 02/06/10 12/07/17 documented as of this encounter
--- OUTSIDE RECORDS SUMMARY | 2024-07-22 08:25 | XMS_ITS | Encounter Summary ---
Author Organization [facility] Address [address] [facility] [place] [address] Care Team Providers Care Case Finisher Name Role Phone Va Olivo MD Primary Care Provider [phone] Reason for Visit * Reason Comments Sports Physical Encounter Details Date Type Department Care Team (Latest Contact Info) Description 02/17/2019 8:15 AM CDT - 02/17/2019 11:59 PM CDT Hospital Encounter [facility] Pediatrics [address] , [address] [place] [address] Va Olivo MD [address] [place] [address] [phone] [place] [address] Discharge Disposition: Home or Self [...] 02/17/2019 8:4 1 AM CDT Growth Chart: [facility] (Girls, 2- 20 Years) documented in this encounter Discharge Instructions * Patient Instructions* Va Olivo MD - 02/17/2019 8:16 AM CDT Images from the original note were not included. YOUR GROWING CHILD: ELEVEN to FOURTEEN YEARS Child???s Name: RahatLevanta Today???s Date: 02/17/2019 Wt Readings from Last 2 Encounters: 09/23/18 48.3 kg (106 lb 8 oz) (47 %, Z= -0.08)* 12/08/17 44.1 kg (97 lb 4.8 oz) (41 %, Z= -0.24)* * Growth percentiles are based on [facility] 2-20 Years data. Ht Readings from Last 2 Encounters: 09/23/18 1.549 m (5' 1 ) (22 %, Z= -0.79)* 12/08/17 1.524 m (5') (23 %, Z= -0.75)* * Growth percentiles are based on [facility] 2-20 Years data. If you need to reach a database engineer after normal business hours, please call our [...] share in (or continuing to share in) hose operator. Also increase awareness about community issues [...] note were not included. 13 year old [facility] Interval History: Jarad Kevin is a 13 [...] been: -living on the street, homeless or jail -recently released from a group home, care home, or [place] health [place] facility -known to have tuberculosis, AIDS or is immunocompromised -comes from or has visited an area known to have tuberculosis -abuses drugs or is an IV drug user -is a migrant farmworker field crop -or has had a positive PPD or [...] (Z= -0.43) based on CDC 2-20 Years amhvaxk-eut-lpw data using vitals from 02/17/2019. Weight: 43 %ile (Z= -0.17) based on CDC 2-20 Years xwhxba-byz-pei data using vitals from 02/17/2019. BMI: 50 [...] CHILD: ELEVEN to FOURTEEN YEARS Child???s Name: Adimab Today???s Date: 02/17/2019 Wt Readings from Last 2 Encounters: 09/23/18 48.3 kg (106 lb 8 oz) (47 %, Z= -0.08)* 12/08/17 44.1 kg (97 lb 4.8 oz) (41 %, Z= -0.24)* * Growth percentiles are based on [facility] 2-20 Years data. Ht Readings from Last 2 Encounters: 09/23/18 1.549 m (5' 1 ) (22 %, Z= -0.79)* 12/08/17 1.524 m (5') (23 %, Z= -0.75)* * Growth percentiles are based on [facility] 2-20 Years data. If you need to reach a database engineer after normal business hours, please call our [...] share in (or continuing to share in) hose operator. Also increase awareness about community issues [...] st Contact Info) Description 07/27/2024 12:50 PM FREIGHT WEIGHER Appointment [facility] Imaging Services - Ultrasound [address] [facility] [address] [place] [address] [place] [address] [address] 08/03/2024 1:00 PM FREIGHT WEIGHER Office Visit [facility] Medical Group - DISPATCHER BUS AND TROLLEY [address] [place] [address] [place] [address] [place] [address] [id number] documented as of this encounter Visit Diagnoses Diagnosis Encounter for well child visit at 13 years of age- Primary Mild persistent asthma without complication (HCC) Unspecified asthma Sports physical Other general medical examination for administrative purposes documented in this encounter Care Teams Case Finisher Relationship Specialty Start Date End Date Va Olivo MD PCP - General Pediatrics 12/08/17 documented as of this encounter
--- OUTSIDE RECORDS SUMMARY | 2024-07-22 08:25 | XMS_ITS | Encounter Summary ---
Author Organization [facility] Address [address] [place] [address] Care Team Providers Care Tooling Manager Name Role Phone Va Olivo MD Primary Care Provider [phone] Reason for Visit * Reason Comments Well Child Check Encounter Details Date Type Department Care Team (Latest Contact Info) Description 11/05/2020 2:52 PM CDT - 11/05/2020 3:54 PM CDT Hospital Encounter [facility] Pediatrics [address] , [address] [place] [address] Va Olivo MD [address] [place] [address] [address] [place] [address] Discharge Disposition: Home or Self [...] CHILD: FIFTEEN to EIGHTEEN YEARS Child???s Name: Qianrui [employer]othes Today???s Date: 11/05/2020 Wt Readings from Last [...] 01/24/2009 If you need to reach a stock speculator after normal business hours, please call our [...] share in (or continuing to share in) traffic operations manager. Also increase awareness about community issues and [...] note were not included. 15 year old [facility] Interval History: Greyson Kevin is a [...] been: -living on the street, homeless or [facility]p -recently released from a retirement, group home, or [facility]cfp -known to have tuberculosis, AIDS or is immunocompromised -comes from or has visited an area known to have tuberculosis -abuses drugs or is an IV drug user -is a migrant fast food fry cook -or has had a positive PPD or [...] Height: 28 %ile (Z= -0.59) based on [facility] (Girls, 2-20 Years) Amxztqz-jzv-auw data based on Stature recorded on 11/05/2020. Weight: 48 %ile (Z= -0.04) based on CDC (Girls, 2-20 Years) ziydmi-pqc-qrv data using vitals from 11/05/2020. BMI: 60 [...] 01/24/2009 If you need to reach a stock speculator after normal business hours, please call our [...] share in (or continuing to share in) traffic operations manager. Also increase awareness about community issues and [...] st Contact Info) Description 07/27/2024 12:50 PM BATTERY PLATE ASSEMBLER Appointment [facility] Health Imaging Services - Ultrasound [address] [address] [place] [address] [place] [address] 08/03/2024 1:00 PM BATTERY PLATE ASSEMBLER Office Visit [facility] Health Medical Group - PAINT CREW SUPERVISOR [address] [place] [address] [place] [address] [place] [address] [phone] (work) documented as of this encounter Goals Goal [...] Resulting Agency Comment Lab Testing performed at: [facility] [address] [facility] [place] [address] ?? [facility] [id number] Va Olivo MD LAB - CHEMISTRY SALIMA MOORE [facility] INSURANCE BILL [address] [place] [address] * HEMOGLOBIN A1C (11/05/2020 4:01 PM CDT) Hemoglobin A1c 5.2 4.2 - 5.6 % [facility] INSURANCE BILL Comment: AVERAGE GLUCOSE MG/DL BLOOD ??103 ?mg/dL The following cutoff levels are recommended by [place] [employer]. A1c ??> 6.5% : [...] Lab Testing performed at: [facility] [id number] [place] [address] ?? [facility] [id number] Va Olivo MD LAB - CHEMISTRY SALIMA MOORE [facility] INSURANCE BILL [address] [place] [address] * (ABNORMAL) COMPREHENSIVE METABOLIC PANEL (11/05/2020 4:01 [...] Lab Testing performed at: [facility] [id number] [place] [address] ?? [facility] [id number] Va Olivo MD LAB - CHEMISTRY SALIMA MOORE [facility] INSURANCE BILL [address] [place] [address] documented in this encounter Visit Diagnoses Diagnosis [...] asthma documented in this encounter Care Teams Tooling Manager Relationship Specialty Start Date End Date Va Olivo MD PCP - General Pediatrics 12/08/17 documented as of this encounter
--- OUTSIDE RECORDS SUMMARY | 2024-07-22 08:26 | XMS_ITS | Encounter Summary ---
Author Organization [facility] Address [address] [place] [address] Care Team Providers Care Hand Woodworking Sander Name Role Phone [facility], [facility] Primary Care Prov ider Reason for Visit * Reason Comments Complete Physical Exam 5yr Encounter Details Date Type Department Care Team (Late st Contact Info) Description 05/07/2011 3:45 PM CDT Office Visit [facility] Pediatrics [address] [place] [address] [place] [address] [facility] [place] [address] WCC (well child check) (Primary Dx) Social [...] in this encounter Progress Notes * Hannah Kuamr MD - 05/07/2011 4:27 PM CDT I. [...] hyperlipidemia. Social History: tobacco no pets dog healthcare or medical: Home with family Peer involvement: Socializes well with peers Review of Symptoms: General ROS: negative II. Physical Exam: Alert active child, vital signs stable BP 98/56 Wt 42 lb (19.051 kg) BMI 14.58 kg/m2 22.91% of growth percentile based on tslsmvb-wsv-geu. 20.04% of growth percentile based on aphqyb-rvo-ypq. Body mass index is 14.58 kg/(m^2). General: [...] all joints SKIN: no rashes or lesions COPY CUTTER: nl tone, symmetrical limbs, no gross deficits, [...] Gross Motor Child is able to: Copies tribe/cross Balances on 1 foot for 3-5 seconds [...] as noted. Growth normal. Development normal 1. [facility] (well child check) FLU VACCINE =>3YO PRESERVATIVE [...] Water safety/pools; Gun safety; Fire safety; Matches, automotive electrician helper safety; Bicycle helmet; Car seat/Airbags;Infections/poisons; Pre-kindergarten; Sun [...] st Contact Info) Description 07/27/2024 12:50 PM UNMANNED EQUIPMENT OPERATOR Appointment [facility] Health Imaging Services - Ultrasound [address] [facility] [address] [place] [address] [place] [address] [place] [address] 08/03/2024 1:00 PM UNMANNED EQUIPMENT OPERATOR Office Visit [facility] Health Medical Group - DATA WAREHOUSE SPECIALIST [address] [place] [phone] [place] [address] [place] [address] documented as of this encounter Visit Diagnoses Diagnosis WCC (well child check)- Primary Routine or child health check documented in this encounter Care Teams Hand Woodworking Sander Relationship Specialty Start Date End Date [facility], [facility] [address] [facility] [address] [place] [address] PCP - General 02/06/10 12/07/17 documented as of this encounter
--- OUTSIDE RECORDS SUMMARY | 2024-07-22 08:26 | XMS_ITS | Encounter Summary ---
Author Organization [facility] Health Address [address] [place] [address] Care Team Providers Care Die Drawing Checker Name Role Phone Hannah Barron MD Primary Care Provider [phone] Encounter Details Date Type Department Care Team (Latest Contact Info) Description 01/24/2009 11:36 AM CDT - 01/24/2009 11:59 PM CDT Hospital Encounter [facility] [address] [place] [address] [place] [address] [facility] [place] [address] Laboratory Discharge Disposition: Home or [...] st Contact Info) Description 07/27/2024 12:50 PM SIGNS AND DISPLAYS SALES REPRESENTATIVE Appointment [facility] Health Imaging Services - Ultrasound [address] [place] [address] [place] [address] [place] [address] 08/03/2024 1:00 PM SIGNS AND DISPLAYS SALES REPRESENTATIVE Office Visit [facility] Medical Group - COLLECTION SYSTEMS WORKER [address] [place] [address] [place] [address] [place] [address] documented as of this encounter Procedures Procedure Name Priority Date/Time Associated Diagnosis Comments LEAD BLOOD Routine 01/24/2009 11:50 AM CDT Routine or Child Health Check HGB HCT PANEL Routine 01/24/2009 11:50 AM CDT Routine Infant or Child Health Check documented in this encounter Results * LEAD BLOOD (01/24/2009 11:50 AM CDT) Lead Blood 3 mcg 0 - 14 ug/dl [facility] Specimen Type Venous [facility] BLOOD SPECIMEN / Unknown 01/24/2009 11:50 AM CDT Narrative [facility] - 01/30/2009 9:44 AM CDT 1 Resulting Agency Comment Performed By [facility] ? [address], [address] ? [place] [address] Hannah Barron MD LAB - CHEMISTRY SALIMA MOORE [facility] [address] [place] [address] * HGB HCT PANEL (01/24/2009 11:50 AM CDT) Hemoglobin 11.9 10.0 - 15.0 gm/dl [facility] Hematocrit 35.4 30.0 - 45.0 % [facility] BLOOD SPECIMEN / Unknown 01/24/2009 11:50 AM CDT Narrative [facility] - 01/24/2009 12:01 PM CDT FAX TO [phone] Hannah Barron MD LAB - HEMATOLOGY ORD ERABLES [facility] [address] [place] [address] documented in this encounter Visit Diagnoses Diagnosis Routine or child health check documented in this encounter Care Teams Die Drawing Checker Relationship Specialty [place] [address] [place] [address] PCP - General 01/24/09 02/05/10 documented as of this encounter
--- OUTSIDE RECORDS SUMMARY | 2024-07-22 08:26 | XMS_ITS | Encounter Summary ---
Author Organization [facility] Address [address] [place] [address] Care Team Providers Care Wage And Salary Specialist Name Role Phone [facility] [place], [facility] Primary Care Prov ider Reason for Referral * Procedure - Closed Specialty Diagnoses / Procedures Referred By Julia lemus Referred To Contact Cardiology Diagnoses History of syncope Procedures EKG 12-LEAD Rika Zaragoza, FORREST-TEA ROOM MANAGER [address] [address] Referral ID Status Reason Start Date Expiration Date Visits Re quested Visits Authorized [id number] Closed 12/21/2014 06/19/2015 1 1 Reason for Visit * Reason Comments Well Child Check 9 year. Has been we ll Syncope fell out on way to nurse's office after not feeling well in gym in winter, Encounter Details Date Type Department Care Team (Latest Contact Info) Description 12/21/2014 8:30 AM CDT - 12/21/2014 10:33 AM CDT Hospital Encounter [facility] [address] [place], [place] [id number] Rika Zaragoza APRN-CNP [address] [place] [address] Discharge Disposition: Home or Self Care Social [...] 12/21/2014 9:0 0 AM CDT Growth Chart: [facility] (Girls, 2- 20 Years) documented [...] presents with mother, brother today for well childhood development teacher. Chief Complaint Patient presents with ??? Well [...] recently Menstrual Hx: Menarche Not yet LMP [facility] [employer] Preparticipation Sports/School Examination [facility] 2004 12/21/2014 female Grade: 5 Sports: track [...] the athlete (and parents/guardians). @SIGNATURE@ Rika Zaragoza APRN-TEA ROOM MANAGER This document has been signed electronically. No exam data present Physical Exam: Blood pressure 102/63, pulse 58, temperature 98.2 ??F, temperature source Temporal, resp. rate 22, height 1.335 m (4' 4.56 ), weight 28.395 kg (62 lb 9.6 oz). 22%ile (Z=-0.77) based on CDC 2-20 Years [id number] data using vitals from 12/21/2014. No weight [...] st Contact Info) Description 07/27/2024 12:50 PM FUNERAL HOME ATTENDANT Appointment [facility] Health Imaging Services - Ultrasound [address] [place] [address] [place] [address] [place] [address] 08/03/2024 1:00 PM FUNERAL HOME ATTENDANT Office Visit [facility] Medical [facility] - SLEEPING CAR CONDUCTOR [address] [place] [phone] [place] [address] [place] [address] documented as of this encounter Results * EKG 12-LEAD (12/21/2014 11:10 AM CDT) Ventricular Rate 62 BPM [facility] Atrial Rate 62 BPM [facility] P-R Interval 106 ms [facility] QRS Duration ms 74 ms [facility] Q-T Interval ms 378 ms [facility] QTC Calculation (Bezet) 383 ms [facility] Calculated P [place] 25 degrees [facility] Calculated R [place] 57 degrees [facility] Calculated T [place] 36 degrees [facility] Interpretation EKG * Pediatric ECG Analysis * Normal sinus rhythm Normal ECG No previous ECGs available Confirmed by MD Darryl, [place] ([id number]) on 12/21/2014 3:52:14 PM [facility] 12/21/2014 11:1 0 AM CDT 12/21/2014 3:52 PM CDT Rika Zaragoza RIFLE CASE REPAIRER-TEA ROOM MANAGER ECG ORDERABLES [facility] * T4 TOTAL (12/21/2014 10:37 AM CDT) Pathologist [facility] T4 Total 12.0 4.7 - 13.3 ug/dL 12/21/2014 11:46 AM CDT [facility] Blood BLOOD SPECIMEN / Unknown Lab Venipuncture / Unknown 12/21/2014 10:37 AM CDT 12/21/2014 11:11 AM CDT Rika Zaragoza RIFLE CASE REPAIRER-TEA ROOM MANAGER LAB - CHEMISTR Y ORDERABLES Performing Organization Address City/[facility]/ZIP Co de Phone Number [facility] [address] [place] [address] * TSH (12/21/2014 10:37 AM CDT) TSH 2.14 0.358 - 3.740 uIU/mL 12/21/2014 11:40 AM CDT [facility] Blood BLOOD SPECIMEN / Unknown Lab Venipuncture / Unknown 12/21/2014 10:37 AM CDT 12/21/2014 11:11 AM CDT Rika Zaragoza RIFLE CASE REPAIRER-TEA ROOM MANAGER LAB - CHEMISTR Y ORDERABLES Performing Organization Address [facility] Co de Phone Number [facility] [id number] [place] [address] * (ABNORMAL) CBC W MANUAL DIFFERENTIAL (12/21/2014 10:37 AM CDT) WBC 3.6(L) 4.5 - 14.5 x10^9/L 12/21/2014 11:17 AM CDT [facility] RBC 4.89 4.00 - 5.20 x10^12/L 12/21/2014 11:17 AM CDT [facility] Hemoglobin 12.4 11.5 - 15.5 gm/dL 12/21/2014 11:17 AM CDT [facility] Hematocrit 37.3 35.0 - 45.0 % 12/21/2014 11:17 AM CDT [facility] MCV 76.3(L) 77.0 - 95.0 fl 12/21/2014 11:17 AM CDT [facility] MCH 25.4 25.0 - 33.0 pg 12/21/2014 11:17 AM CDT [facility] MCHC 33.2 31.0 - 37.0 gm/dL 12/21/2014 11:17 AM CDT [facility] RDW-CV 12.2 11.5 - 14.0 % 12/21/2014 11:17 AM CDT [facility] MPV 10.4(H) 6.0 - 9.5 fl 12/21/2014 11:17 AM CDT [facility] Platelet Count 307 100 - 400 x10^9/L 12/21/2014 11:17 AM T [facility] Blood BLOOD SPECIMEN / Unknown Lab Venipuncture / Unknown 12/21/2014 10:37 AM CDT 12/21/2014 11:11 AM CDT Rika Zaragoza RIFLE CASE REPAIRER-TEA ROOM MANAGER LAB - HEMATOLO GY ORDERABLES [facility] [address] [place] [address] * (ABNORMAL) BASIC METABOLIC PANEL (CALCIUM TOTAL) (12/21/2014 10:37 AM CDT) Glucose 71(L) 74 - 106 mg/dL 12/21/2014 11:35 AM [facility] Sodium 140 136 - 145 mmol/L 12/21/2014 11:35 AM [facility] Potassium 3.9 3.5 - 5.1 mmol/L 12/21/2014 11:35 AM [facility] Chloride 106 98 - 107 mmol/L 12/21/2014 11:35 AM [facility] CO2 28 22 - 31 mmol/L 12/21/2014 11:35 AM [facility] Calcium 9.1 8.5 - 10.1 mg/dL 12/21/2014 11:35 AM [facility] Anion Gap 6 5 - 15 mmol/L 12/21/2014 11:35 AM [facility] BUN 12 7 - 21 mg/dL 12/21/2014 11:35 AM [facility] Creatinine 0.34(L) 0.50 - 1.30 mg/dL 12/21/2014 11:35 AM [facility] eGFR by MDRD mL/min/1. 73m2 12/21/2014 11:35 AM [facility] Comment:eGFR calculations ar e not performed for children under 18 years old. eGFR by MDRD mL/min/1. 73m2 12/21/2014 11:35 AM [facility] Comment:eGFR calculations ar e not performed for children under 18 years old. Blood BLOOD SPECIMEN / Unknown Lab Venipuncture / Unknown 12/21/2014 10:37 AM CDT 12/21/2014 11:11 AM CDT Rika Zaragoza RIFLE CASE REPAIRER-TEA ROOM MANAGER LAB - CHEMISTR Y ORDERABLES [facility] [address] [place] [address] documented in this encounter Visit Diagnoses Diagnosis Examination of eyes and vision History of syncope Personal history of other specified diseases History of asthma Personal history of other diseases of respiratory system Other examination of ears and hearing Syncope and collapse Unspecified asthma(493.90) ([facility]) Unspecified asthma documented in this encounter Care Teams Wage And Salary Specialist Relationship Specialty Start Date End Date [facility] [place] [id number] [facility] [facility] [address] [place] [address] PCP - General 02/06/10 12/07/17 documented as of this encounter
--- OUTSIDE RECORDS SUMMARY | 2024-07-22 08:26 | XMS_ITS | Encounter Summary ---
Author Organization [facility] Address [address] [place] [address] Care Team Providers Care Spot Welder Body Assembly Name Role Phone [facility], [facility] Primary Care Prov ider Encounter Details Date Type Department Care Team (Latest Contact Info) Description 12/21/2014 10:36 AM CDT - 12/21/2014 11:59 PM CDT Hospital Encounter [facility] Laboratory [address] [place] [address] Rika Zaragoza, CENTRAL COMMUNICATIONS SPECIALIST-DIRECTOR OF PARKS AND RECREATION [address] [place] [address] Discharge Disposition: Home or Self Care [...] st Contact Info) Description 07/27/2024 12:50 PM PRESIDENT AND CMO Appointment [facility] Imaging Services - Ultrasound [address] [facility] [address] [place] [address] [place] [address] [place] [address] 08/03/2024 1:00 PM PRESIDENT AND CMO Office Visit [facility] Medical Group - LAP GRINDER [address] [place] [phone] [place] [address] [place] [address] documented as of this encounter Procedures Procedure [...] - 14.5 x10^9/L 12/21/2014 12:10 PM CDT [facility] nRBC /100 WBC 12/21/2014 12:10 PM CDT [facility] Neutrophil % Manual 29 24 - 66 % 12/21/2014 12:10 PM CDT [facility] Lymphocytes % Manual 59 22 - 61 % 12/21/2014 12:10 PM CDT [facility] Monocytes % Manual 6 3 - 15 % 12/21/2014 12:10 PM CDT [facility] Eosinophils % Manual 5 0 - 10 % 12/21/2014 12:10 PM CDT [facility] Basophils % Manual 1 % 12/21/2014 12:10 PM CDT [facility] Cells Counted 100 # cells 12/21/2014 12:10 PM CDT [facility] RBC Morphology Normal 12/21/2014 12:10 PM CDT [facility] WBC Morph Normal 12/21/2014 12:10 PM CDT [facility] Platelet Estimation Normal 12/21/2014 12:10 PM CDT [facility] Blood BLOOD SPECIMEN / Unknown Lab Venipuncture / Unknown 12/21/2014 10:37 AM CDT 12/21/2014 11:11 AM CDT Rika Zaragoza CENTRAL COMMUNICATIONS SPECIALIST-DIRECTOR OF PARKS AND RECREATION LAB - HEMATOLO GY ORDERABLES [facility] [address] [place] [address] * T4 TOTAL (12/21/2014 10:37 AM CDT) T4 Total 12.0 4.7 - 13.3 ug/dL 12/21/2014 11:46 AM CDT [facility] Blood BLOOD SPECIMEN / Unknown Lab Venipuncture / Unknown 12/21/2014 10:37 AM CDT 12/21/2014 11:11 AM CDT Rika Zaragoza CENTRAL COMMUNICATIONS SPECIALIST-DIRECTOR OF PARKS AND RECREATION LAB - CHEMISTR Y ORDERABLES Performing Organization Address City/[facility]/ZIP Co de Phone Number [facility] [phone] [place] [phone] * TSH (12/21/2014 10:37 AM CDT) TSH 2.14 0.358 - 3.740 uIU/mL 12/21/2014 11:40 AM CDT [facility] Blood BLOOD SPECIMEN / Unknown Lab Venipuncture / Unknown 12/21/2014 10:37 AM CDT 12/21/2014 11:11 AM CDT Rika Zaragoza CENTRAL COMMUNICATIONS SPECIALIST-DIRECTOR OF PARKS AND RECREATION LAB - CHEMISTR Y ORDERABLES Performing Organization Address [facility] Co de Phone Number [facility] [phone] [place] [phone] * (ABNORMAL) CBC W MANUAL DIFFERENTIAL (12/21/2014 10:37 AM CDT) WBC 3.6(L) 4.5 - 14.5 x10^9/L 12/21/2014 11:17 AM CDT [facility] RBC 4.89 4.00 - 5.20 x10^12/L 12/21/2014 11:17 AM CDT [facility] Hemoglobin 12.4 11.5 - 15.5 gm/dL 12/21/2014 11:17 AM CDT [facility] Hematocrit 37.3 35.0 - 45.0 % 12/21/2014 11:17 AM CDT [facility] MCV 76.3(L) 77.0 - 95.0 fl 12/21/2014 11:17 AM CDT [facility] MCH 25.4 25.0 - 33.0 pg 12/21/2014 11:17 AM CDT [facility] MCHC 33.2 31.0 - 37.0 gm/dL 12/21/2014 11:17 AM CDT [facility] RDW-CV 12.2 11.5 - 14.0 % 12/21/2014 11:17 AM CDT [facility] MPV 10.4(H) 6.0 - 9.5 fl 12/21/2014 11:17 AM CDT [facility] Platelet Count 307 100 - 400 x10^9/L 12/21/2014 11:17 AM T [facility] Blood BLOOD SPECIMEN / Unknown Lab Venipuncture / Unknown 12/21/2014 10:37 AM CDT 12/21/2014 11:11 AM CDT Rika Zaragoza CENTRAL COMMUNICATIONS SPECIALIST-DIRECTOR OF PARKS AND RECREATION LAB - HEMATOLO GY ORDERABLES [facility] [address] [place] [address] * (ABNORMAL) BASIC METABOLIC PANEL (CALCIUM TOTAL) (12/21/2014 10:37 AM CDT) Glucose 71(L) 74 - 106 mg/dL 12/21/2014 11:35 AM [facility] Sodium 140 136 - 145 mmol/L 12/21/2014 11:35 AM [facility] Potassium 3.9 3.5 - 5.1 mmol/L 12/21/2014 11:35 AM [facility] Chloride 106 98 - 107 mmol/L 12/21/2014 11:35 AM [facility] CO2 28 22 - 31 mmol/L 12/21/2014 11:35 AM [facility] Calcium 9.1 8.5 - 10.1 mg/dL 12/21/2014 11:35 AM [facility] Anion Gap 6 5 - 15 mmol/L 12/21/2014 11:35 AM [facility] BUN 12 7 - 21 mg/dL 12/21/2014 11:35 AM [facility] Creatinine 0.34(L) 0.50 - 1.30 mg/dL 12/21/2014 11:35 AM [facility] eGFR by MDRD mL/min/1. 73m2 12/21/2014 11:35 AM [facility] Comment:eGFR calculations ar e not performed for children under 18 years old. eGFR by MDRD mL/min/1. 73m2 12/21/2014 11:35 AM [facility] Comment:eGFR calculations ar e not performed for children under 18 years old. Blood BLOOD SPECIMEN / Unknown Lab Venipuncture / Unknown 12/21/2014 10:37 AM CDT 12/21/2014 11:11 AM CDT Rika M Nik CENTRAL COMMUNICATIONS SPECIALIST-DIRECTOR OF PARKS AND RECREATION LAB - CHEMISTR Y ORDERABLES [facility] [address] [place] [address] documented in this encounter Visit Diagnoses Diagnosis History of syncope Personal history of other specified diseases documented in this encounter Care Teams Spot Welder Body Assembly Relationship Specialty Start Date End Date [facility] [address] [facility] [address] [place] [address] PCP - General 02/06/10 12/07/17 documented as of this encounter
--- OUTSIDE RECORDS SUMMARY | 2024-07-22 08:26 | XMS_ITS | Encounter Summary ---
Author Organization [facility] Address [address] [facility] [place] [address] Care Team Providers Care Encapsulator Name Role Phone [facility] Primary Care Prov ider Reason for Visit * Reason Comments Well Child Check Encounter Details Date Type Department Care Team (Latest Contact Info) Description 12/14/2013 2:19 PM CDT - 12/14/2013 11:59 PM CDT Hospital Encounter [facility] [address], [address] [place] [address] Bob Goodwin MD RETIRED Discharge [...] 12/14/2013 2:3 1 PM CDT Growth Chart: [facility] (Girls, 2- 20 Years) documented in [...] st Contact Info) Description 07/27/2024 12:50 PM MICROELECTRONICS ASSEMBLER Appointment [facility] Imaging Services - Ultrasound [address] [facility] [address] [place], [place] [address] [place] [address] [place] [address] 08/03/2024 1:00 PM MICROELECTRONICS ASSEMBLER Office Visit [facility] Medical Group - CLINICAL TRIALS SYSTEMS ADMINISTRATOR [address] [place] [phone] [place] [address] [place] [address] documented as of this encounter Visit Diagnoses Diagnosis Examination of eyes and vision Other examination of ears and hearing Asthma (HCC) Refraction error Unspecified disorder of refraction and accommodation documented in this encounter Care Teams Encapsulator Relationship Specialty Start Date End Date [facility] [address] [facility] [address] [place], [place] [phone] PCP - General 02/06/10 12/07/17 documented as of this encounter
--- OUTSIDE RECORDS SUMMARY | 2024-07-22 08:26 | XMS_ITS | Encounter Summary ---
Author Organization [facility] Address [address] [facility] [place] [address] Care Team Providers Care Directory Carrier Name Role Phone [facility], [facility] Primary Care [facility] ider Reason for Visit * Reason Onset Date Comments Follow-up 12/21/2014 Encounter Details Date Type Department Care Team (Late st Contact Info) Description 12/21/2014 Telephone [facility] [address], [address] [place] [address] Rika Zaragoza APRN-CNP [address] [place] [address] Follow-up Social History Tobacco Use [...] st Contact Info) Description 07/27/2024 12:50 PM COTTON GINNER Appointment [facility] Imaging Services - Ultrasound [address] [facility] [address] [place] [address] [place] [address] [place] [address] 08/03/2024 1:00 PM COTTON GINNER Office Visit [facility] Medical Group - MULTIMEDIA JOURNALIST [address] [place] [phone] [place] [address] [place] [address] documented as of this encounter Visit Diagnoses Not on filedocumented in this encounter Care Teams Directory Carrier Relationship Specialty Start Date End Date [facility] [address] [facility] [place] [address] [place] [address] PCP - General 02/06/10 12/07/17 documented as of this encounter
--- OUTSIDE RECORDS SUMMARY | 2024-07-22 08:26 | XMS_ITS | Encounter Summary ---
Author Organization [facility] Address [address] [place] [address] Care Team Providers Care Transmission Inspector Name Role Phone [facility] Primary Care Prov ider Reason for Referral * Procedure - Closed Specialty Diagnoses / Procedures Referred By Julia t Referred To Contact Cardiology Diagnoses History of syncope Procedures EKG 12-LEAD Rika Zaragoza, FORREST-MAP CLERK [address] [facility] [address] [address] Referral ID Status Reason Start Date Expiration Date Visits Re quested Visits Authorized [id number] Closed 12/21/2014 06/19/2015 1 1 Encounter Details Date Type Department Care Team (Latest Contact Info) Description 12/21/2014 10:34 AM CDT - 12/21/2014 10:35 AM CDT Hospital Encounter [facility] [address] [place] [address] Rika Zaragoza, SISAL PICKER-MAP CLERK [address] [place] [address] Discharge Disposition: Home or Self [...] st Contact Info) Description 07/27/2024 12:50 PM PARKING OFFICER Appointment [facility] Health Imaging Services - Ultrasound [address] [facility] [address] [place] [address] [place] [address] [place] [address] 08/03/2024 1:00 PM PARKING OFFICER Office Visit [facility] Health Medical Group - BULL FLOAT FINISHER [address] [place] [address] [place] [address] [place] [address] documented as of this encounter [...] (Bezet) 383 ms [facility] Calculated P [place] 25 degrees [facility] MUSE Calculated R [place] 57 degrees [facility] M[facility] Calculated T [place] 36 degrees [facility] Interpretation EKG * Pediatric ECG Analysis * Normal sinus rhythm Normal ECG No previous ECGs available Confirmed by MD Darryl, Jhony ([id number]) on 12/21/2014 3:52:14 PM [facility] 12/21/2014 11:1 0 AM CDT 12/21/2014 3:52 PM CDT Rika Zaragoza SISAL PICKER-MAP CLERK ECG ORDERABLES [facility] documented in this encounter Visit Diagnoses Diagnosis History of syncope Personal history of other specified diseases documented in this encounter Care Teams Transmission Inspector Relationship Specialty Start Date End Date [facility] [address] [address] PCP - General 02/06/10 12/07/17 documented as of this encounter
--- OUTSIDE RECORDS SUMMARY | 2024-07-22 08:26 | XMS_ITS | Encounter Summary ---
Author Organization [facility] Address [address] [place] [address] Care Team Providers Care Commercial Real Estate Attorney Name Role Phone [facility], [facility] Primary Care Prov ider Reason for Referral * Specialty Diagnoses / Procedures Referred By Julia lemus Referred To Contact Rika Zaragoza, DRAIN LAYER-OPERATION SUPERVISOR [address] [place] [address] Referral ID Status Reason Start Date Expiration Date Visits Re quested Visits Authorized Reason for Visit * Reason Comments Complete Physical Exam 4 yr check . Has beenwell Encounter Details Date Type Department Care Team (Late st Contact Info) Description 02/13/2010 10:00 AM CDT Office Visit [facility] [address] [place] [address] Rika Zaragoza DRAIN LAYER-OPERATION SUPERVISOR [address] [place] [address] WCC (Well Child Check) (Primary [...] 6.5 ) 02/13/2010 10:3 3 AM CDT Nksmmy-dzh-Ptzqdl Percentile 17.93% 10/2009 10:33 AM CDT Growth Chart: [facility] (Girls, 2- 20 Years) Body Mass [...] st Contact Info) Description 07/27/2024 12:50 PM VP OF DIGITAL MARKETING Appointment [facility] Imaging Services - Ultrasound [address] [address] [place] [address] [place] [address] 08/03/2024 1:00 PM VP OF DIGITAL MARKETING Office Visit [facility] Health Medical Group - DIRECTOR DRUG SAFETY [address] [place] [phone] [place] [address] [place] [address] Scheduled Referrals Name Type Priority Associated Diagnoses Order Schedule AMB REFERRAL TO OPHTHALMOLOGY Outpatient Referral Routine Decreased Vision Ordered: 02/13/2010 documented as of this encounter Visit Diagnoses Diagnosis WCC (well child check)- Primary Routine infant or child health check Rash Rash and other nonspecific skin eruption Decreased vision Unspecified visual loss documented in this encounter Care Teams Commercial Real Estate Attorney Relationship Specialty Start Date End Date [facility] [id number] [address] PCP - General 02/06/10 12/07/17 documented as of this encounter
--- OUTSIDE RECORDS SUMMARY | 2024-07-22 08:27 | XMS_ITS | Continuity of Care Document ---
Author Organization [employer] [facility] Address [address] [place] [address] Phone Care Team Providers Care Tax Accounting Assistant Name Role Phone Cosme Vail DMD Unavailable [...] Diagnoses Date Provider Providers Copied on Encounter [facility] , [address], [place], [place], [address], tel:[phone] [facility] Dental caries, unspecified 4 Genna Aguiar. [address], [place], [place], [address] , . tel:[phone] Referring Provider: Cosme Vail, [address], [place], [address] . tel:[phone] [facility] , [address], [place], [place], [address], tel:[phone] [facility] Encounter for dental exam and cleaning w abnormal findings 3 Keiry Dao. [address], [place], [place], [address] . tel:[phone] [facility] , [address], [place], [place], [address], tel:[phone] [facility] Encounter for dental exam and cleaning w abnormal findingsChronic gingivitis, plaque induced 3 Keiry Dao. [address], [place], [place], [address] . tel: [phone] [facility] , [address], [place], [place], [address], tel:[phone] [facility] Encounter for dental exam and cleaning w abnormal findings Maurice-3 0 2 Amandeep Randall. [address], [place], [place], [address] . tel: [phone] [facility] , [address], [place], [place], [address], [place] tel:[phone] [facility] Encounter for dental exam and cleaning w abnormal findings 1 Amandeep Randall. [address], [place], [place], [address] . tel: [phone] [facility] , [address], [place], [place], [address], tel:[phone] [facility] Encounter for dental exam and cleaning w abnormal findings 1 Amandeep Randall. [address], [place], [place], [address] . tel: [phone] [facility] , [address], [place], [place], [address], tel:[phone] [facility] Encounter for dental exam and cleaning w abnormal findings 1 Amandeep Bridges [address], [place], [place], [address] . [phone] Family History Family Member Type Diagnosis Age At Onset No Information Payers Payer name Insurance type Covered republican ID Joantanna yvette(s) Maryam [facility] Community Plan MCAID [id number] Social History Type Description Quantity Date Captured [...]
--- OUTSIDE RECORDS SUMMARY | 2024-07-22 19:23 | XMS_ITS | Encounter Summary ---
Author Organization [facility] Address [address] [place] [address] Care Team Providers Care School Administrator Name Role Phone Va Olivo MD Primary Care Provider [phone] Reason for Visit * Reason Onset Date Comments MEDICATION REFILL 09/09/2022 Encounter Details Date Type Department Care Team (Late st Contact Info) Description 09/09/2022 Refill [facility] [address] , [address] [place] [address] Va Olivo MD [address] [facility] [phone] [place] [address] MEDICATION REFILL Social History Tobacco [...] Contact Info) Description 07/27/2024 12:50 PM BUSINESS ANALYSIS CONSULTANT Appointment [facility] Imaging Services - Ultrasound [address] [facility] [address] [place] [address] [place] [address] [place] [address] 08/03/2024 1:00 PM BUSINESS ANALYSIS CONSULTANT Office Visit [facility] Group - CONSTRUCTION PRODUCER [address] [place] [phone] [place] [address] [place] [address] documented as of this encounter Goals Goal Patient Goal Type Associated Problems Recent Progress Patient-Stated? Author Yearly PCP visit Lifestyle No Aster Garnica, RN Note: Come into office for yearly wcc. Take recommended medication(s) Lifestyle No Aster Garnica RN documented as of this encounter Visit Diagnoses Not on filedocumented in this encounter Care Teams School Administrator Relationship Specialty Start Date End Date Va Olivo MD PCP - General Pediatrics 12/08/17 documented as of this encounter
--- OUTSIDE RECORDS SUMMARY | 2024-07-22 19:23 | XMS_ITS | Referral Summary ---
Author Organization [facility] Address [address] [place] [address] Care Team Providers Care Bariatric Physician Name Role Phone Va Olivo MD Primary Care Provider [phone] Source Comments [facility],non-[facility] Affiliates and Associated Physician Practices is amultiple site organization consisting of ambulatory clinics and hospital sitesin [place], [place], [place] and [place]. This disclosure is being madepursuant to the Care Everywhere program and may not contain all informatio navailable regarding this patient. Last updated 18.[facility] Encounters Date Type Department Care Team Description 07/20/2024 Travel 07/20/2024 1:00 PM FULLING MILL OPERATOR Office Visit [facility] - COTTON PICKER OPERATOR [address] [place] [address] Jeremie Perez MD Abnormal uterine bleeding (AUB) (Primary Dx); Screen for STD (sexually transmitted disease) 07/19/2024 3:34 PM FULLING MILL OPERATOR - 07/19/2024 5:27 PM FULLING MILL OPERATOR Emergency ER at [place] [id number] [place] [address] DUB (dysfunctional uterine bleeding) (Primary [...] original. 11/05/21 No show letter #1 sent @[facility] ER Problem Noted Date Diagnosed Date Influenza B 09/09/2022 Assessment & Plan (09/09/2022 11:58 AM FULLING MILL OPERATOR): Give albuterol prn, if increase distress [...] Comments Blood Pressure 110/72 07/20/2024 1:23 PM FULLING MILL OPERATOR Pulse 70 07/20/2024 1:23 PM FULLING MILL OPERATOR Temperature 36.7 ??C (98 ??F) 07/19/2024 3:34 PM FULLING MILL OPERATOR Respiratory Rate 16 07/19/2024 3:34 PM FULLING MILL OPERATOR Oxygen Saturation 100% 07/20/2024 1:23 PM FULLING MILL OPERATOR Inhaled Oxygen Concentration - - Weight 66.3 kg (146 lb 3.2 oz) 07/20/2024 1:23 P M FULLING MILL OPERATOR Height 158.5 cm (5' 2.4 ) 07/20/2024 1:23 PM FULLING MILL OPERATOR Body Mass Index 26.4 07/20/2024 1:23 PM FULLING MILL OPERATOR Plan of Treatment Upcoming Encounters Date Type Department Care Team (Late st Contact Info) Description 07/27/2024 12:50 PM FULLING MILL OPERATOR Appointment [facility] Imaging Services - Ultrasound [address] [facility] [address] [place], [place] [id number] [place] [address] [place] [address] 08/03/2024 1:00 PM FULLING MILL OPERATOR Office Visit [facility] Medical Group - COTTON PICKER OPERATOR [address] [place] [phone] [place] [address] [place] [address] Goals Goal Patient Goal Type Associated Problems Recent Progress Patient-Stated? Author Yearly PCP visit Lifestyle Aster Willard, ALEXA Note: Come into office for yearly wcc. Take recommended medication(s) Lifestyle Aster Willard, sonar technician Procedure Name Priority Date/Time Associated Diagnosis Comments ESTRADIOL Routine 07/20/2024 2:06 PM FULLING MILL OPERATOR Abnormal uterine bleeding (AUB) FSH + LH PANEL Routine 07/20/2024 2:06 PM FULLING MILL OPERATOR Abnormal uterine bleeding (AUB) PROLACTIN Routine 07/20/2024 2:06 PM FULLING MILL OPERATOR Abnormal uterine bleeding (AUB) IRON + TIBC + FERRITIN Routine 2:06 PM FULLING MILL OPERATOR Abnormal uterine bleeding (AUB) CBC W/O DIFFERENTIAL Routine 07/20/2024 2:06 PM FULLING MILL OPERATOR Abnormal uterine bleeding (AUB) TSH REFLEX FREE T4 Routine 07/20/2024 2: 06 PM FULLING MILL OPERATOR Abnormal uterine bleeding (AUB) CHLAMYDIA + GC + TRICH DNA AMPL Routine 07/20/2024 12:00 AM FULLING MILL OPERATOR URINALYSIS REFLEX TO MICROSCOPIC NO CULTURE STAT 07/19/2024 4:20 PM FULLING MILL OPERATOR HCG BLOOD QUALITATIVE STAT 07/19/2024 4:18 PM FULLING MILL OPERATOR CBC W AUTO DIFFERENTIAL STAT 07/19/2024 4:18 PM FULLING MILL OPERATOR COMPREHENSIVE METABOLIC PANEL STAT 07/19/2024 4:18 PM FULLING MILL OPERATOR from Last 3 Months Results * (ABNORMAL) IRON + TIBC + FERRITIN (07/20/2024 2:06 PM FULLING MILL OPERATOR) TIBC 388 250 - 450 ug/dL [facility] INSURANCE BILL UIBC 349 131 - 425 ug/dL [facility] INSURANCE BILL Iron 39 27 - 159 ug/dL [facility] INSURANCE BILL Iron Saturation 10(L) 15 - 55 % [facility] INSURANCE BILL Ferritin 17 15 - 77 ng/mL [facility] INSURANCE BILL Blood BLOOD SPECIMEN / Unknown 07/20/2024 2:06 PM FULLING MILL OPERATOR 07/20/2024 Narrative [facility] INSURANCE BILL - 07/21/2024 7:09 AM FULLING MILL OPERATOR Performed at: ??01 - [facility] [place] [address] [place], [place] ??[id number] Automotive Manufacturer: Dillon Aguirre PhD, Phone: ??[phone] Jeremie Perez MD LAB - CHEMISTRY ORD ERABLES [facility] INSURANCE BILL [address] [place] [address] * TSH REFLEX FREE T4 (07/20/2024 2:06 PM FULLING MILL OPERATOR) TSH 1.180 0.450 - 4.500 uIU/mL [facility] INSURANCE BILL Blood BLOOD SPECIMEN / Unknown 07/20/2024 2:06 PM FULLING MILL OPERATOR 07/20/2024 Narrative [facility] INSURANCE BILL - 07/21/2024 8:13 AM FULLING MILL OPERATOR Performed at: ??01 - [address] ??[id number] Automotive Manufacturer: Dillon Aguirre PhD, Phone: ??[phone] Jeremie Perez MD LAB - CHEMISTRY ORD ERABLES Performing Organization Address [facility] Phone Number [facility] INSURANCE BILL [address] [place] [address] * PROLACTIN (07/20/2024 2:06 PM FULLING MILL OPERATOR) Prolactin 7.5 4.8 - 33.4 ng/mL [facility] INSURANCE BILL Blood BLOOD SPECIMEN / Unknown 07/20/2024 2:06 PM FULLING MILL OPERATOR 07/20/2024 Narrative [facility] INSURANCE BILL - 07/21/2024 7:09 AM FULLING MILL OPERATOR Performed at: ??01 - [facility] ??[id number] Automotive Manufacturer: Dillon Aguirre PhD, Phone: ??[phone] Jeremie Perez MD LAB - CHEMISTRY ORD ERABLES Performing Organization Address [facility] Phone Number [facility] INSURANCE BILL [address] [place] [address] * ESTRADIOL (07/20/2024 2:06 PM FULLING MILL OPERATOR) Estradiol 56.0 pg/mL [facility] INSURANCE BILL Comment: ? Adult Female ? Range ?Follicular phase ? 12.5 - 166.0 ?Ovulation phase ?85.8 - 498.0 ?Luteal phase ? 43.8 - 211.0 ?Postmenopausal ? <6.0 - ??54.7 ?1st trimester ? 215.0 - >4300.0 Akhil ECLIA methodology Blood BLOOD SPECIMEN / Unknown 07/20/2024 2:06 PM FULLING MILL OPERATOR 07/20/2024 Narrative [facility] INSURANCE BILL - 07/21/2024 7:09 AM FULLING MILL OPERATOR Performed at: ??01 - [facility] [address] [place], [place] ??[id number] Automotive Manufacturer: Dillon Aguirre PhD, Phone: ??[phone] Jeremie Perez MD LAB - CHEMISTRY ORD ERABLES [facility] INSURANCE BILL [address] [place] [address] * (ABNORMAL) CBC W/O DIFFERENTIAL (07/20/2024 2:06 PM FULLING MILL OPERATOR) WBC 3.1(L) 3.4 - 10.8 x10E3/uL [...] BLOOD SPECIMEN / Unknown 07/20/2024 2:06 PM FULLING MILL OPERATOR 07/20/2024 Narrative [facility] INSURANCE BILL - 07/21/2024 7:09 AM FULLING MILL OPERATOR Performed at: ??01 - [facility] [address] [place], [place] ??[id number] Automotive Manufacturer: Dillon Aguirre PhD, Phone: ??[phone] Jeremie Perez MD LAB - HEMATOLOGY OR DERABLES Performing Organization Address City/State/[facility] Co de Phone Number [facility] INSURANCE BILL [address] [place] [address] * FSH + LH PANEL (07/20/2024 2:06 PM FULLING MILL OPERATOR) LH 27.4 mIU/mL [facility] INSURANCE BILL [...] BLOOD SPECIMEN / Unknown 07/20/2024 2:06 PM FULLING MILL OPERATOR 07/20/2024 Narrative [facility] INSURANCE BILL - 07/21/2024 7:09 AM FULLING MILL OPERATOR Performed at: ??01 - [facility] [address] ??[id number] Automotive Manufacturer: Dillon Aguirre PhD, Phone: ??[phone] Jeremie Perez MD LAB - CHEMISTRY ORD ERABLES Performing Organization Address [facility] de Phone Number [facility] INSURANCE BILL [address] [place] [address] * CHLAMYDIA + GC + TRICH DNA AMPL (07/20/2024 12:00 AM FULLING MILL OPERATOR) Chlamydia trachomatis AUGUSTO Negative Negative [facility] ACCOUNT BILL GC DNA Probe Negative Negative [facility] ACCOUNT BILL Trichomonas vaginalis by AUGUSTO Negative Negative [facility] ACCOUNT BILL 07/20/2024 07/20/2024 Narrative [facility] ACCOUNT BILL - 07/21/2024 9:07 PM FULLING MILL OPERATOR Performed at: ??01 - [facility] [address] [place] ??[id number] Automotive Manufacturer: Clara Crawford MD, Phone: ??[phone] Jeremie Perez MD LAB - MICROBIOLOGY ORDERABLES Performing Organization Address [facility] de Phone Number [facility] ACCOUNT BILL [address] [place] [address] * (ABNORMAL) URINALYSIS REFLEX TO MICROSCOPIC NO CULTURE (07/19/2024 4:20 PM FULLING MILL OPERATOR) Color UA Yellow Yellow, Straw 07/19/2024 5:04 PM FULLING MILL OPERATOR [facility] Clarity UA Clear Clear 07/19/2024 5:04 PM FULLING MILL OPERATOR [facility] Glucose UA Normal Normal 07/19/2024 5:04 PM FULLING MILL OPERATOR [facility] Bilirubin UA Negative Negative 07/19/2024 5:04 PM FULLING MILL OPERATOR [facility] Ketone UA Negative Negative 07/19/2024 5:04 PM FULLING MILL OPERATOR [facility] Specific [place] UA 1.032(H) 1.005 - 1.030 07/19/2024 5:04 PM FULLING MILL OPERATOR [facility] Blood UA 3+(A) Negative 07/19/2024 5:04 PM FULLING MILL OPERATOR [facility] pH UA 7.0 5.0 - 9.0 pH 07/19/2024 5:04 PM FULLING MILL OPERATOR [facility] Protein UA Trace(A) Negative 07/19/2024 5:04 PM FULLING MILL OPERATOR [facility] Urobilinogen UA 2.0(A) Normal mg/dL 025 5:04 PM FULLING MILL OPERATOR [facility] Nitrite UA Negative Negative 07/19/2024 5:04 PM FULLING MILL OPERATOR [facility] Leukocyte UA Negative Negative 07/19/2024 5:04 PM FULLING MILL OPERATOR [facility] RBC UA >100(A) 0 - 5 # /hpf 07/19/2024 5:04 PM FULLING MILL OPERATOR [facility] WBC UA 0-5 0 - 5 # /hpf 07/19/2024 5:04 PM FULLING MILL OPERATOR [facility] Bacteria UA None Seen None Seen 07/19/2024 5:04 PM FULLING MILL OPERATOR [facility] Squamous Epithelial Cells 0-2 0 - 5 /hpf 07/19/2024 5:04 PM FULLING MILL OPERATOR [facility] Mucus UA 2+ /LPF 07/19/2024 5:04 PM [facility] Urine URINE SPECIMEN OBTAINED BY CLEAN CATCH PROCEDURE / Unknown Collection / Unknown 07/19/2024 4:20 PM FULLING MILL OPERATOR 07/19/2024 4:51 PM FULLING MILL OPERATOR Narrative [facility] - 07/19/2024 5:04 PM FULLING MILL OPERATOR Ruchi Chappell APRN-BATCH AND FURNACE OPERATOR LAB - URINALYSIS ORDERABLES [facility] [address] [place] [address] * (ABNORMAL) CBC W AUTO DIFFERENTIAL (07/19/2024 4:18 PM FULLING MILL OPERATOR) WBC 2.9(L) 4.0 - 10.7 x10E9/L 07/19/2024 4:56 PM FULLING MILL OPERATOR [facility] RBC Count 4.11 3.90 - 5.20 x10E12/L 07/19/2024 4:56 PM [facility] Hemoglobin 11.1(L) 11.9 - 15.8 g/dL 07/19/2024 4:56 PM [facility] Hematocrit 34.0(L) 34.8 - 46.1 % 07/19/2024 4:56 PM [facility] MCV 82.7 80.0 - 98.0 fL 07/19/2024 4:56 PM [facility] MCH 27.0 26.7 - 33.6 pg 07/19/2024 4:56 PM [facility] MCHC 32.6 31.7 - 36.3 g/dL 07/19/2024 4:56 PM [facility] RDW-CV 11.7 11.3 - 14.8 % 07/19/2024 4:56 PM [facility] Platelet Count 345 150 - 420 x10E9/L 07/19/2024 4:56 PM [facility] MPV 10.3 7.8 - 11.4 fL 07/19/2024 4:56 PM [facility] Neutrophil % 44.6 41.0 - 74.0 % 07/19/2024 4:56 PM [facility] Lymphocyte % 44.0 17.0 - 47.0 % 07/19/2024 4:56 PM [facility] Monocyte % 8.6 3.0 - 11.0 % 07/19/2024 4:56 PM [facility] Eosinophil % 1.4 0.0 - 7.0 % 07/19/2024 4:56 PM [facility] Basophil % 1.4 0.0 - 1.6 % 07/19/2024 4:56 PM [facility] Immature Granulocytes % 0.0 0.0 - 1.0 % 07/19/2024 4:56 PM [facility] Neutrophil Absolute 1.30(L) 1.60 - 7.50 x10E9/L 07/19/2024 4:56 PM FULLING MILL OPERATOR [facility] Lymphocyte Absolute 1.28 1.00 - 4.40 x10E9/L 07/19/2024 4:56 PM FULLING MILL OPERATOR [facility] Monocyte Absolute 0.25 0.15 - 1.00 x10E9/L 07/19/2024 4:56 PM [facility] Eosinophil Absolute 0.04 0.00 - 0.60 x10E9/L 07/19/2024 4:56 PM [facility] Basophil Absolute 0.04 0.00 - 0.13 x10E9/L 07/19/2024 4:56 PM [facility] Blood BLOOD SPECIMEN / Unknown Venipuncture / Unknown 07/19/2024 4:18 PM FULLING MILL OPERATOR 07/19/2024 4:50 PM [facility] Ruchi Chappell ELECTRO MECHANICAL TECHNOLOGIST-BATCH AND FURNACE OPERATOR LAB - HEMATOLOGY ORDERABLES [facility] [address] [place] [address] * (ABNORMAL) COMPREHENSIVE METABOLIC PANEL (07/19/2024 4:18 PM FULLING MILL OPERATOR) Glucose 93 70 - 99 mg/dL 07/19/2024 5:15 PM [facility] Sodium 139 136 - 145 mmol/L 07/19/2024 5:15 PM [facility] Potassium 5.7(H) 3.5 - 5.1 mmol/L 07/19/2024 5:15 PM [facility] Comment:Specimen is Moderate ly Hemolyzed. This potassium result may be falsely elevated. Chloride 109(H) 98 - 107 mmol/L 07/19/2024 5:15 PM [facility] CO2 20(L) 22 - 29 mmol/L 07/19/2024 5:15 PM [facility] Calcium 10.0 8.4 - 10.4 mg/dL 07/19/2024 5:15 PM [facility] Anion Gap 10 6 - 16 mmol/L 07/19/2024 5:15 PM FULLING MILL OPERATOR [facility] BUN 15 5.3 - 18.7 mg/dL 07/19/2024 5:15 PM FULLING MILL OPERATOR [facility] Creatinine 1.05 0.57 - 1.11 mg/dL 07/19/2024 5:15 PM FULLING MILL OPERATOR [facility] Alkaline Phosphatase 68 40 - 150 U/L 07/19/2024 5:15 PM FULLING MILL OPERATOR [facility] ALT 15 0 - 55 U/L 07/19/2024 5:15 PM FULLING MILL OPERATOR [facility] AST 36(H) 5 - 34 U/L 07/19/2024 5:15 PM FULLING MILL OPERATOR [facility] Comment:Specimen is Moderate ly Hemolyzed. This AST result may be falsely elevated. Protein Total 8.5(H) 6.4 - 8.3 gm/dL 07/19/2024 5:15 PM FULLING MILL OPERATOR [facility] Comment:Specimen is Moderate ly Hemolyzed. This total protein result may be falsely elevated. Albumin 4.5 3.4 - 5.0 gm/dL 07/19/2024 5:15 PM FULLING MILL OPERATOR [facility] Bilirubin Total 0.3 0.2 - 1.2 mg/dL 07/19/2024 5:15 PM FULLING MILL OPERATOR [facility] eGFR by CKD-EPI 78(L) >=90 mL/min/1.7 3 m2 07/19/2024 5:15 PM FULLING MILL OPERATOR [facility] Blood BLOOD SPECIMEN / Unknown Venipuncture / Unknown 07/19/2024 4:18 PM FULLING MILL OPERATOR 07/19/2024 4:51 PM FULLING MILL OPERATOR Ruchi Chappell APRN-BATCH AND FURNACE OPERATOR LAB - CHEMISTRY O RDERABLES [facility] [address] [place] [address] * HCG BLOOD QUALITATIVE (07/19/2024 4:18 PM FULLING MILL OPERATOR) HCG Qual Serum Negative Negative 07/19/2024 5:11 PM FULLING MILL OPERATOR [facility] Blood BLOOD SPECIMEN / Unknown Venipuncture / Unknown 07/19/2024 4:18 PM FULLING MILL OPERATOR 07/19/2024 4:51 PM FULLING MILL OPERATOR Narrative [facility] - 07/19/2024 5:11 PM FULLING MILL OPERATOR Specimens containing human anti-mouse antibodies may exhibit false positive or false negative results. If qualitative interpretation is inconsistent with clinical evaluation, consider confirmation by an alternative hCG method. Ruchi Chappell ELECTRO MECHANICAL TECHNOLOGIST-BATCH AND FURNACE OPERATOR LAB - CHEMISTRY O RDERABLES [facility] [address] [place] [address] from Last 3 Months Advance Directives Documents on File Type Date Recorded Patient Rubber Cutting Machine Tender Expl anation Adv Directive/Living Will/POA 12/14/2013 2:19 PM Care Teams Bariatric Physician Relationship Specialty Start Date End Date Va Olivo MD PCP - General Pediatrics 12/08/17
--- OUTSIDE RECORDS SUMMARY | 2024-07-22 19:23 | XMS_ITS | Encounter Summary ---
Author Organization [facility] Address [address] [place] [address] Care Team Providers Care Divinity Teacher Name Role Phone Va Olivo MD Primary Care Provider [phone] Reason for Visit * Reason Comments Rash Headache Encounter Details Date Type Department Care Team (Late st Contact Info) Description 10/29/2023 2:00 PM CDT - 10/29/2023 3:23 PM CDT Emergency ER at [address] [address] Itchy eyes (Primary Dx) Discharge [...] (HCC) ??? Seizure (HCC) happened [facility] out [employer] who presents with itchy watery bilateral [...] (HCC) ??? Seizure (HCC) happened thru out [employer] Past Surgical History: Procedure Laterality Date [...] st Contact Info) Description 07/27/2024 12:50 PM REINFORCED IRONWORKER Appointment [facility] Imaging [facility] - [facility]trasound [address] [facility] [address] [place] [address] [place] [address] [place] [address] 08/03/2024 1:00 PM REINFORCED IRONWORKER Office Visit [facility] - TOOL CARRIER [address] [place] [id number] [place] [address] [address] documented as of this encounter Goals Goal Patient Goal Type Associated Problems Recent Progress Patient-Stated? Author Yearly PCP visit Lifestyle No Aster Garnica, RN Note: Come into office for yearly wcc. Take recommended medication(s) Lifestyle No Aster Garnica, RN documented as of this encounter Visit Diagnoses Diagnosis Itchy eyes- Primary Other ill-defined disorder of eye documented in this encounter Care Teams Divinity Teacher Relationship Specialty Start Date End Date Va Olivo MD PCP - General Pediatrics 12/08/17 documented as of this encounter
--- OUTSIDE RECORDS SUMMARY | 2024-07-22 19:23 | XMS_ITS | Encounter Summary ---
Author Organization [facility] Address [address] [place] [address] Care Team Providers Care Project Development Coordinator Name Role Phone Va Olivo MD Primary Care Provider [phone] Reason for Referral * Radiology Services (Routine) - Closed Specialty Diagnoses / Procedures Referred By Contac t Referred To Contact MRI Diagnoses Pain in left tibia Procedures [place] [address] [place] [address] Referral ID Status Reason Start Date Expiration Date Visits Re quested Visits Authorized [id number] Closed 04/06/2023 05/21/2023 1 1 Reason for Visit * Radiology Services (Routine) - Closed Specialty Diagnoses / Procedures Referred By Contac t Referred To Contact MRI Diagnoses Pain in left tibia Procedures [place] [address] [place] [address] Referral ID Status Reason Start Date Expiration Date Visits Re quested Visits Authorized [id number] Closed 04/06/2023 05/21/2023 1 1 Encounter Details Date Type Department Care Team (Latest Contact Info) Description 04/10/2023 9:07 AM CDT - 04/10/2023 11:59 PM CDT Hospital Encounter [facility] Imaging Services - MRI [address] [id number] Discharge Disposition: Home or Self Care Social [...] st Contact Info) Description 07/27/2024 12:50 PM [employer] Appointment [facility] Health Imaging Services - Ultrasound [address] [facility] [address] [place] [address] [place] [address] [place] [address] 08/03/2024 1:00 PM [employer] Office Visit [facility] [address] [place] [id number] [place] [address] [place], [place] [id number] documented as of this encounter Goals Goal [...] tibia documented in this encounter Care Teams Project Development Coordinator Relationship Specialty Start Date End Date Va Olivo MD PCP - General Pediatrics 12/08/17 documented as of this encounter
--- OUTSIDE RECORDS SUMMARY | 2024-07-22 19:23 | XMS_ITS | Encounter Summary ---
Author Organization [facility] Address [address] [place] [address] Care Team Providers Care Meeting Manager Name Role Phone Va Olivo MD Primary Care Provider [phone] Reason for Visit * Reason Comments Well Child Check Sports Physical Encounter Details Date Type Department Care Team (Latest Contact Info) Description 12/24/2022 8:29 AM CDT - 12/24/2022 9:55 AM T Hospital Encounter [facility] [address], [address] [place] [address] Gillian Casillas, SUPPLY CHAIN SYSTEMS MANAGER-MARBLEIZER [address] [place] [address] Discharge Disposition: Home or Self [...] 12/24/2022 8:4 8 AM CDT Growth Chart: [facility][NOTE 3] (Girls, 2- 20 Years) documented in this encounter Discharge Instructions * Patient Instructions* Gillian Casillas APRN-MARBLEIZER - 12/24/2022 9:09 AM CDT Images from the original note were not included. Psychology Resources [facility] in [facility], . They accept most private insurance, HomeState and [facility] Medicaid - they can get patients in in 24- 48 hours and no referral is needed Psychology at [facility], no referral needed, - appt time about 1-2 months Psychology at [facility], no referral needed, , appt time about 1-2 months [facility]: [phone] [facility] Gayle Shepard [facility] [place] [address] Serves [facility] Ages 4-19 Medicaid: No Private Insurance: No [place] only for [facility] residents - FREE In-home Family Resource Center: [phone] [place] [address] Serves [facility], [facility], [facility], and [facility] Ages 2-18 Medicaid: Yes Private Insurance: Yes [place] available Outpatient therapy / In-home Barry: [phone] [address] [place] [address] Serves [facility] Ages 5-18 Medicaid: Yes Private Insurance: Yes Sliding scale Outpatient therapy / psychiatry / school-based [facility] [phone] [facility] [phone] [facility] Counseling [phone] [facility] [phone] ext. [phone] Free Crisis Hotline Behavioral Health Resources 02/02 [facility] Intake: [address] [place] [address], [place] [address] [address] [facility] [address] [place] [address] [place] [address], [place] [address] Serves [facility], [facility], and [facility] Ages 4-18 Medicaid: Yes Private Insurance: No Outpatient therapy / psychiatry / in-home / school-based [place] [facility]: [phone] Dr. Pacheco, child and adolescent psychiatry: [phone] or [phone] [facility] Child and Adolescent Psychiatry - [address] [facility] [place] [address] [place] [address] [facility] [phone] - [facility] Children's Help Line for Parents: Project Safety Net Parents seeking advice about issues related to kids of all ages are encouraged to call our free parent helpline at [phone]. This is a free service of [place] [facility] that helps parents understand more about the mental development of their child. The phone line is staffed by professionals offering assistance to parents on a wide range of issues. [facility] Pediatric Behavioral Health [phone] Psychology, Therapy, Psychiatry, and psychological testing/treatment. [facility] [address] [address] www.Who@ [phone] Parenting education, self-help, counseling and more. [facility] [address] [facility] [place] [address] www.ClickFoxbehavioralcareVirtual Paper [phone] Children, adolescent and adult mental health and substance abuse programs that include medication assisted therapy, as well as individual and group approaches and intensive outpatient programs. [facility] [address] [facility] [address] www.[facility].org [phone] Prevention and treatment of all forms of child abuse and neglect. Recently united with [facility]. Family-centered therapeutic, educational, and support services. Coverage now in [facility]. [facility] [address] [address] www.[facility].org [phone] [facility] provides therapy, counseling and an assortment of programs for adults and children with afull range of emotional and behavioral issues. Fees are based on a sliding scale and available to all. [facility] At [address] [address] www.[facility] [phone] A mental health practice that assesses and treats mental/behavioral health disorders in adults and children, in addition to community education and training. Provides treatment in mood disorders (depression, bipolar disorders); attention deficit/hyperactivity disorder; anxiety and trauma-related disorders; school and relationship problems; attachment; loss/grief; and diagnostic clarification. Several sources of funding and payment options, including Medicaid, private insurance, [facility] and [facility] Children???s Services Funds, and sliding fee scale. [facility]) Formerly [employer] [facility] [address] [facility], [address] [place] [address] [address], [address] [place] [address] www.Presto Engineeringsouth central regional medical centerNauchime.org.com/ Behavioral health care services for children, adolescents, adults and older adults and their families. Services include outpatient programs, partial hospitalization, office and telehealth treatment for a wide range of disorders. [facility]S SERVICES [facility] Several locations. Check website. www.[facility].org/ [phone]-FESZ ([phone]) Mental health and counseling services in addition to adoption, foster care and assistance. [facility] [address] [place] [address] (New address) www.[facility].org [phone] City Planner Payee Program [phone]. Offers Mental Health Wellness Seminars for staff and clients at organizations and businesses; provides City Planner Payee services to manage SSI/SSDI benefits; delivers Parent Coaching sessions as part of the agency's PEACE (Preventing the Effects of Adverse Childhood Experiences) program; website contains educational information, linkage to support groups of all kinds, medication assistance programs, clinical trials for mental health conditions, and more. [facility] [address] [place] [address]. [address] www.[facility].org/organizations/semkj-idzjf-agdeedqmid/ [phone] Professional counseling and psychiatric services.or families and children of all backgrounds. Operates eight offices throughout the area, in addition to its School Partnership Program (SPP),which provides onsite services to students at more than 100 schools as well as children who are homeless living at area shelters. Operated by [employer]. [facility] [address] [place] [address]. [address] www.[facility].org/ [phone] Trauma-informed evidence-based mental health services to individuals and families. [facility] provides outpatient therapy, including Dialectical Behavior Therapy (DBT), Community-Based Crisis Stabilization Services and organizational trainings. [employer] [address] [address] www.[employer] [phone] Provides integrated mental health services to children and adults who have experienced trauma, depression and anxiety, regardless of ability to pay. Parental Conflict Assistance [facility] [address] [facility] [address] [place] [address] www.mediationstl.org [phone] Confidential and private mediations for a variety of family and relationship conflicts, in additionto parenting plans, tenant-landlord, community, and small business disputes. Online mediation available. Referrals from other agencies welcome. [facility] Main Location: [address] [place] [address] www.fatherssupportcenter.org [phone] Now working with women and families. Job readiness and retention skills, as well as a legal clinic,youth leadership and 'The Family Formation'. [employer], [place] [address] Call Shirin Williams [facility] Appointment number: [phone] 4 locations ([facility], [facility]) Children (under 18) who are [facility] residents-12 free session under [facility] Children???s Service Fund evelyn (Client can be reevaluated at that 12 and likely approved for more sessions) Youth In Need Individual/Group/Family [facility] [phone] and [facility] [phone] Free to [facility] and [facility] youth under grants [facility] Center for Behavioral Health [phone] Individual, family Psychological evaluations (Autism) Free for [facility] Youth under 20 (https://www.[facility]/cb/Fees.html) [facility] intake@[facility].org or [phone] Free to many under various residency grants [place] [facility] Jerome [facility] [place] Intake line: [phone] Accepts lots of insurance including good variety of commercial OCD & Anxiety IOP, Eating Disorder IOP, DBT, Gender affirming, psychological testing, individual, family, psychiatry [facility] [phone] (ask for automotive glass specialist) [facility] [address] [facility] youth free services under evelyn, also offer low/no cost for those not evelyn eligible [facility]olescent [facility] provides diagnostic assessments; Counseling; Psychiatry [place] [facility] 8 locations: Ernesto Murphy Office: [phone] Dhruv Office: [phone] [place]: [phone] [place], [place]: [phone] MEAGAN Carpio: [phone] [place]: [phone] [facility]: [phone] YOUR GROWING CHILD: FIFTEEN to EIGHTEEN YEARS [...] data. If you need to reach a steaming machine operator after normal business hours, please call our [...] share in (or continuing to share in) pool hall inspector. Also increase awareness about community issues and [...] Most importantly, be a good role model! [employer]s BRIGHT FUTURES HANDOUT - PARENT 15 THROUGH 17 YEAR VISITS Here are some suggestions from [employer] experts that may be of value to your family. HOW YOUR FAMILY IS DOING YOUR TEEN'S FEELINGS Set aside time to be with Greyson and really listen to her hopes and concerns. Support Greyson in finding activities that interest her. Encourage Greyson to help others in the community. Help Greyson find and be a part of positive after-school activities and sports. Support Gryeson as she figures out ways to deal with stress, solve problems, and make decisions. Help Greyson deal with conflict. If you are worried about your living or food situation, talk with us. Community agencies and programs such as [employer] can also provide information and assistance. 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 - Do not tolerate drinking and driving. [...] true medical care and advice of your steaming machine operator. There may be variations in treatment that your steaming machine operator may recommend based on individual facts and circumstances. Original handout included as part of the Bright Futures Tool and Resource Kit, 2nd Edition. Inclusion in this handout does not imply an endorsement by the [employer] Academy of Pediatrics (AAP). The AAP is not responsible for the content of the resources mentioned in this handout. Web site addresses are as current as possible but may change at any time. The [employer] Academy of Pediatrics (AAP) does not review or endorse any modifications made to this handout and in no event shall the AAP be liable for any such changes. ?? 2019 [employer] Academy of Pediatrics. All rights reserved. [employer] Pediatrics Bright Futures https://brightfutures.aap.org [employer] of Pediatrics BRIGHT FUTURES HANDOUT for Journey 15 THROUGH 17 YEAR VISITS Here are some suggestions from [employer] experts that may be of value to [...] the dentist at least twice a year. [place] your teeth at least twice a day [...] SAFE Always be a safe and cautious pile driver operator barge mounted. - Insist that everyone use a lap [...] the medical care and advice of your steaming machine operator. There may be variations in treatment that your steaming machine operator may recommend based on individual facts and circumstances. Original handout included as part of the Bright Futures Tool and Resource Kit, 2nd Edition. Inclusion in this handout does not imply an endorsement by the [employer] Academy of Pediatrics (AAP). The AAP is not responsible for the content of the resources mentioned in this handout. Web site addresses are as current as possible but may change at any time. The [employer] Academy of Pediatrics (AAP) does not review or endorse any modifications made to this handout and in no event shall the AAP be liable for any such changes. ?? 2019 [employer] Academy of Pediatrics. All rights reserved. [employer] Pediatrics Bright Futures https://brightfutures.aap.org documented [...] this encounter Progress Notes * Jazmín Casillasn, FORREST-MARBLEIZER - 12/24/2022 8:59 AM CDT Images from [...] been: -living on the street, homeless or assisted -recently released from a snf, care home, or residential -known to have tuberculosis, AIDS or is immunocompromised -comes from or has visited an area known to have tuberculosis -abuses drugs or is an IV drug user -is a migrant border measurer and cutter -or has had a positive PPD or [...] Grade: just finished 12 grade Going to [employer] to study pre law HIGH RISK [...] list of local dentist at front office spec ANY PROBLEMS IDENTIFIED AND ADDRESSED Yes Hearing [...] Height: 31 %ile (Z= -0.48) based on [facility] (Girls, 2-20 Years) Sagpanq-wuv-xwi data based on Stature recorded on 12/24/2022. Weight: 50 %ile (Z= -0.01) based on CDC (Girls, 2-20 Years) psbdpm-dxa-ucr data using vitals from 12/24/2022. BMI: 58 [...] Instructions Psychology [facility] in [facility], . They accept most private insurance, HomeState and [facility] Medicaid - they can get patients in in 24- 48 hours and no referral is needed Psychology at [facility], no referral needed, - appt time about 1-2 months Psychology at [facility], no referral needed, , appt time about 1-2 months [facility]: [phone] [facility] [place] [address] ?? Serves [facility] ?? Ages 4-19 ?? Medicaid: No ?? Private Insurance: No ?? [place] only for [facility] residents - FREE ?? In-home Family Resource Center: [phone] [place] [address]. [place] [address] ?? Serves [facility], [facility], [facility], and [facility] ?? Ages 2-18 ?? Medicaid: Yes ?? Private Insurance: Yes ?? [place] available ?? Outpatient therapy / In-home Barry: [phone] [address] [place] [address] ?? Serves [facility] ?? Ages 5-18 ?? Medicaid: Yes ?? Private Insurance: Yes ?? Sliding scale ?? Outpatient therapy / psychiatry / school-based [facility] [phone] [facility] [phone] [facility] [phone] [facility] [phone] ext. [phone] Free Crisis Hotline Behavioral Health Resources 02/02 [facility] Intake: [address] [place] [address], [place] [address] [address] [facility] [address] [place] [address] [address] [place] [address], [place] [address] ?? Serves [facility], [facility], and [facility] ?? Ages 4-18 ?? Medicaid: Yes ?? Private Insurance: No ?? Outpatient therapy / psychiatry / in-home / school-based [place] [facility]: [phone] Dr[address] Pacheco, child and adolescent psychiatry: [phone] or [phone] [facility] Child and Adolescent Psychiatry - [address] [facility] [facility], [address] [place] [address] [facility] Center [phone] [facility] Children's Help Line for Parents: Project Safety Net Parents seeking advice about issues related to kids of all ages are encouraged to call our free parent helpline at [phone]. This is a free service of [place] [facility] that helps parents understand more about the mental development of their child. The phone line is staffed by professionals offering assistance to parents on a wide range of issues. [facility] Pediatric Behavioral Health [phone] Psychology, Therapy, Psychiatry, and psychological testing/treatment. [facility] [address] [address] www.Who@ [phone] Parenting education, self-help, counseling and more. [facility] [address] [place] [address] www.alternativebehavioralcareVirtual Paper [phone] Children, adolescent and adult mental health and substance abuse programs that include medication assisted therapy, as well as individual and group approaches and intensive outpatient programs. [facility] [address] [facility] [address] www.[facility].org [phone] Prevention and treatment of all forms of child abuse and neglect. Recently united with [facility]. Family-centered therapeutic, educational, and support services. Coverage now in [facility]. [facility] [address] [address] www.[facility].org [phone] [facility] provides therapy, counseling and an assortment of programs for adults and children with afull range of emotional and behavioral issues. Fees are based on a sliding scale and available to all. [facility] At [facility] [address] [facility] [address] www.[facility] [phone] A mental health practice that assesses and treats mental/behavioral health disorders in adults and children, in addition to community education and training. Provides treatment in mood disorders (depression, bipolar disorders); attention deficit/hyperactivity disorder; anxiety and trauma-related disorders; school and relationship problems; attachment; loss/grief; and diagnostic clarification. Several sources of funding and payment options, including Medicaid, private insurance, [facility] and [facility] Children???s Services Funds, and sliding fee scale. [facility] [employer] Formerly [address] [place] [address] [place] [address], [address] [place] [address] www.Presto Engineeringsouth central regional medical centerNauchime.org.Cemmerce/ Behavioral health care services for children, adolescents, adults and older adults and their families. Services include outpatient programs, partial hospitalization, office and telehealth treatment for a wide range of disorders. [facility] Several locations. Check website. www.[facility].org/ [phone] ([phone]) Mental health and counseling services in addition to adoption, foster care and assistance. [facility] [address] [place] [address] (New address) www.[facility].org [phone] City Planner Payee Program [phone]. Offers Mental Health Wellness Seminars for staff and clients at organizations and businesses; provides City Planner Payee services to manage SSI/SSDI benefits; delivers Parent Coaching sessions as part of the agency's PEACE (Preventing the Effects of Adverse Childhood Experiences) program; website contains educational information, linkage to support groups of all kinds, medication assistance programs, clinical trials for mental health conditions, and more. [facility] [address] [place] [address]. [address] www.[facility].org/organizations/jrfsq-vqjkg-qohibaomfx/ [phone] Professional counseling and psychiatric services.or families and children of all backgrounds. Operates eight offices throughout the area, in addition to its School Partnership Program (SPP),which provides onsite services to students at more than 100 schools as well as children who are homeless living at area shelters. Operated by [employer]. [facility] [address] [place] [address]. [address] www.[facility].org/ [phone] Trauma-informed evidence-based mental health services to individuals and families. [facility] provides outpatient therapy, including Dialectical Behavior Therapy (DBT), Community-Based Crisis Stabilization Services and organizational trainings. [address] [address] www.[employer] [phone] Provides integrated mental health services to children and adults who have experienced trauma, depression and anxiety, regardless of ability to pay. Parental Conflict Assistance [facility] [address] [place] [address] www.mediationstl.org [phone] Confidential and private mediations for a variety of family and relationship conflicts, in additionto parenting plans, tenant-landlord, community, and small business disputes. Online mediation available. Referrals from other agencies welcome. [facility] Main Location: [address] [place] [address] www.fatherssupportcenter.org [phone] Now working with women and families. Job readiness and retention skills, as well as a legal clinic,youth leadership and 'The Family Formation'. [place] [address] Call Shirin Kramer [facility] ? Appointment number: [phone] ? 4 locations ([facility], [facility]) ? Children (under 18) who are [facility] residents-12 free session under [facility] Children???s Service Fund evelyn (Client can be reevaluated at that 12 and likely approved for more sessions) Youth In Need ? Individual/Group/Family ? [facility] [phone] and [facility] [phone] Free to [facility] youth under grants [facility] ? [phone] ? Individual, family ? Psychological evaluations (Autism) Free for [facility] Youth under 20 (https://www.[facility]/cb/Fees.html) [facility] ? [email or web address].org or [phone] ? Free to many under various residency grants [facility] ? Mustapha Leonardo, [place], [place] ? Intake line: [phone] ? Accepts lots of insurance including good variety of commercial OCD & Anxiety IOP, Eating Disorder IOP, DBT, Gender affirming, psychological testing, individual, family, psychiatry [facility] ? [phone] (ask for automotive glass specialist) ? [facility] [address] ? [facility] youth free services under evelyn, also offer low/no cost for those not evelyn eligible [facility] provides diagnostic assessments; Counseling; Psychiatry [facility] 1. 8 locations: - [place] Office: [phone] - [place] Office: [phone] - [place]: [phone] - O???MEAGAN Farah: [phone] - MEAGAN Carpio: [phone] - [place]: [phone] [facility]: [phone] YOUR GROWING CHILD: FIFTEEN to EIGHTEEN YEARS [...] data. If you need to reach a steaming machine operator after normal business hours, please call our [...] share in (or continuing to share in) pool hall inspector. Also increase awareness about community issues and [...] Most importantly, be a good role model! [employer] BRIGHT FUTURES HANDOUT - [...] us. Community agencies and programs such as [employer] can also provide information and assistance. ?? 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 - Do not tolerate drinking and driving. [...] true medical care and advice of your steaming machine operator. There may be variations in treatment that your steaming machine operator may recommend based on individual facts and circumstances. Original handout included as part of the Bright Futures Tool and Resource Kit, 2nd Edition. Inclusion in this handout does not imply an endorsement by the [employer] (AAP). The AAP is not responsible for the content of the resources mentioned in this handout. Web site addresses are as current as possible but may change at any time. The [employer] (AAP) does not review or endorse any modifications made to this handout and in no event shall the AAP be liable for any such changes. ?? 2019 [employer]. All rights reserved. [employer] Bright Futures https://brightfutures.aap.org [employer] BRIGHT FUTURES HANDOUT for Journey 15 THROUGH 17 YEAR VISITS Here are some suggestions from [employer] experts that may be of value to [...] dentist at least twice a year. ?? [place] your teeth at least twice a day [...] ?? Always be a safe and cautious pile driver operator barge mounted. - Insist that everyone use a lap [...] the medical care and advice of your steaming machine operator. There may be variations in treatment that your steaming machine operator may recommend based on individual facts and circumstances. Original handout included as part of the Bright Futures Tool and Resource Kit, 2nd Edition. Inclusion in this handout does not imply an endorsement by the [employer] (AAP). The AAP is not responsible for the content of the resources mentioned in this handout. Web site addresses are as current as possible but may change at any time. The [employer] (AAP) does not review or endorse any modifications made to this handout and in no event shall the AAP be liable for any such changes. ?? 2019 [employer]. All rights reserved. [employer] Bright Futures https://brightfutures.aap.org documented in this encounter Plan of Treatment Upcoming Encounters Date Type Department Care Team (Late st Contact Info) Description 07/27/2024 12:50 PM DESIGN INTERN Appointment [facility] Health Imaging Services - Ultrasound [address] [facility] [address] [place] [address] [place] [address] [place] [id number] 08/03/2024 1:00 PM DESIGN INTERN Office Visit [facility] - WIRE INSERTER [address] [place] [phone] [place] [address] [place], [place] [address] documented as of this encounter Goals Goal [...] vision documented in this encounter Care Teams Meeting Manager Relationship Specialty Start Date End Date Va Olivo MD PCP - General Pediatrics 12/08/17 documented as of this encounter
--- OUTSIDE RECORDS SUMMARY | 2024-07-22 19:23 | XMS_ITS | Encounter Summary ---
Author Organization [facility] Address [address] [facility] [place] [address] Care Team Providers Care Change Management Director Name Role Phone Va Olivo MD Primary Care Provider [phone] Reason for Visit * Reason Onset Date Comments General 05/22/2023 Encounter Details Date Type Department Care Team ([facility] st Contact Info) Description 05/22/2023 Telephone [facility] Pediatrics [address] [place] [address] Va Olivo MD [address] [facility] [phone] [place] [address] General Social History Tobacco Use [...] Letter uploaded and snt to Greyson through [employer] as requested. WELDER documented in this encounter Plan of Treatment Upcoming Encounters Date Type Department Care Team (Late st Contact Info) Description 07/27/2024 12:50 PM MIG WELDER Appointment [facility] Imaging Services - Ultrasound [address] [address] [place] [address] [place] [address] 08/03/2024 1:00 PM MIG WELDER Office Visit [facility] Medical [facility] - SKATE SHOP ATTENDANT [address] [place] [phone] [place] [address] [place] [address] documented as of this encounter Goals Goal Patient Goal Type Associated Problems Recent Progress Patient-Stated? Author Yearly PCP visit Lifestyle No Aster Garnica RN Note: Come into office for yearly wcc. Take recommended medication(s) Lifestyle No Nahun, Aster Lynn, RN documented as of this encounter Visit Diagnoses Not on filedocumented in this encounter Care Teams Change Management Director Relationship Specialty Start Date End Date Va Olivo MD PCP - General Pediatrics 12/08/17 documented as of this encounter
--- OUTSIDE RECORDS SUMMARY | 2024-07-22 19:23 | XMS_ITS | Encounter Summary ---
Author Organization [facility] Address [address] [facility] [place] [address] Care Team Providers Care Registered Health Nurse Name Role Phone Va Olivo MD Primary Care Provider [phone] Encounter Details Date Type Department Care Team (Latest Contact Info) Description 04/01/2023 1:15 PM CDT Ancillary Procedure [facility] Orthopedics - Radiology [address] [place] [address] [place] [address] [facility] [address] [place] [address] Pain in left tibia Social [...] st Contact Info) Description 07/27/2024 12:50 PM FLYING I INSTRUCTOR Appointment [facility] Health Imaging Services - Ultrasound [address] [facility] [address] [place] [address] [place] [address] [place] [address] 08/03/2024 1:00 PM FLYING I INSTRUCTOR Office Visit [facility] - SUPERVISOR LEAD BURNING [address] [place] [address] [place] [address] [place], [place] [id number] documented as of this encounter Goals Goal [...] tibia documented in this encounter Care Teams Registered Health Nurse Relationship Specialty Start Date End Date Va Olivo MD PCP - General Pediatrics 12/08/17 documented as of this encounter
--- OUTSIDE RECORDS SUMMARY | 2024-07-22 19:23 | XMS_ITS | Encounter Summary ---
Author Organization [facility] Health Address [address] [place] [place] [address] Care Team Providers Care Fibre Composite Technician Name Role Phone Va Olivo MD Primary Care Provider [phone] Encounter Details Date Type Department Care Team [...] Coronavirus/COVID-19? No / Unsure 05/19/2022 9:59 AM FIELD AIDE documented as of this encounter Plan of Treatment Upcoming Encounters Date Type Department Care Team (Late st Contact Info) Description 07/27/2024 12:50 PM FIELD AIDE Appointment [facility] Health Imaging Services - Ultrasound [address] [place] [address] [place] [address] [place] [address] 08/03/2024 1:00 PM FIELD AIDE Office Visit [facility] - ENTRY LEVEL SALES CONSULTANT [address] [place] [phone] [place] [address] [place] [address] documented as of this encounter Goals Goal Patient Goal Type Associated Problems Recent Progress Patient-Stated? Author Yearly PCP visit Lifestyle Aster Willard, RN Note: Come into office for yearly wcc. Take recommended medication(s) Lifestyle No Aster Garnica, RN documented as of this encounter Visit Diagnoses Not on filedocumented in this encounter Care Teams Fibre Composite Technician Relationship Specialty Start Date End Date Va Olivo MD PCP - General Pediatrics 12/08/17 documented as of this encounter
--- OUTSIDE RECORDS SUMMARY | 2024-07-22 19:23 | XMS_ITS | Encounter Summary ---
Author Organization [facility] Address [address] [facility] [place] [address] Care Team Providers Care Database Modeler Name Role Phone Va Olivo MD Primary Care Provider [phone] Reason for Referral * Radiology Services (Routine) - Closed Specialty Diagnoses / Procedures Referred By Contac t Referred To Contact MRI Diagnoses Pain of right tibia Procedures MRI [place]IB[place] [address] [address] [place] [address] Referral ID Status Reason Start Date Expiration Date Visits Re quested Visits Authorized [id number] Closed 04/01/2023 03/31/2024 1 1 * Radiology Services (Routine) - Closed Specialty Diagnoses / Procedures Referred By Contac t Referred To Contact MRI Diagnoses Pain in left tibia Procedures MRI [place] [address] [address] [place] [address] Referral ID Status Reason Start Date Expiration Date Visits Re quested Visits Authorized [id number] Closed 04/06/2023 05/21/2023 1 1 Reason for Visit * Reason Comments 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 Problem BRASS WIND INSTRUMENTS TUBE BENDER/jaime queen Encounter Details Date Type Department Care Team (Late st Contact Info) Description 04/01/2023 1:00 PM CDT Office Visit [facility] Orthopedics [address] [place] [address], [address] [place] [address] [place] [address] [facility] [address] [place] [address] Pain in left tibia (Primary [...] Weston MD - 04/01/2023 2:55 PM CDT [facility] Orthopedic [facility] Note Patient Name: Greyson [place] Date of : 2005 Date of Service: 04/01/2023 CHIEF COMPLAINT Chief Complaint Patient presents with ??? 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 Problem BRASS WIND INSTRUMENTS TUBE BENDER/jaime queen HISTORY OF PRESENT ILLNESS Greyson Kevin [...] states that she recently started seeing her marine mammal trainer. Prior to that, she would use ice, pain patches, Biofreeze, [place], massaging, and rolling. The patient states that these would be a quick fixfor her to finish her race. She states that she would put on a Biofreeze pain patch in the middle of her race, but it would worsen. She notes her pain becomes severe and swollen, and she will get random bruising. The patient is from [place]. 03/31/2023 8:09 AM Patient-entered Ortho Intake Form Referring provider sports medicine trainer Reason for visit Other Symptoms? Queen [...] uncomplicated ??? Seizure (CMS/HCC) happened thru out [employer] ??? Surgical: Past Surgical History: Procedure [...] in detail with the patient and her marine mammal trainer via telephone regarding her ongoing symptoms. [...] have her continue following up with her marine mammal trainer at the [facility] for ongoing care, including stretches, strengthening, and modalities. I emphasized the importance of cross training to maintain her cardiovascular fitness and strength. I will also hold her out from running at this point, as thisis a precipitating cause for her acute worsening of pain, and this was relayed to her marine mammal trainer, who will still have a conversation with her project coach. - Recommended Treatment: Meloxicam 15 mg once daily with food. Continue following up with her marine mammal trainer at the [facility]. Cold therapy. MRIs bilateral lower extremities [...] Cox MA - 04/01/2023 1:04 PM CDT BRASS WIND INSTRUMENTS TUBE BENDER/jaime queen documented in this encounter Procedure Notes * Deya Crenshaw - 04/01/2023 1:10 PM CDTAssociated Order(s): XR TIBIA FIBULA LEFT 2VW; XR TIBIA FIBULA RIGHT 2VW Please see office note in Epic. documented in this encounter Plan of Treatment Upcoming Encounters Date Type Department Care Team (Late st Contact Info) Description 07/27/2024 12:50 PM HANDS AND DIAL INSPECTOR Appointment [facility] Imaging Services - Ultrasound [address] [address] [place] [address] [place] [address] 08/03/2024 1:00 PM HANDS AND DIAL INSPECTOR Office Visit [facility] - HYDRO SPRAYER OPERATOR [address] [place] [address] [place] [address] [place] [address] documented as of this encounter Goals [...] tibia documented in this encounter Care Teams Database Modeler Relationship Specialty Start Date End Date Va Olivo MD PCP - General Pediatrics 12/08/17 documented as of this encounter
--- OUTSIDE RECORDS SUMMARY | 2024-07-22 19:23 | XMS_ITS | Encounter Summary ---
Author Organization [facility] Address [address] [place] [address] Care Team Providers Care Pocket Builder Name Role Phone Va Olivo MD Primary Care Provider [phone] Encounter Details Date Type Department Care Team (Latest Contact Info) Description 04/01/2023 1:10 PM CDT Ancillary Procedure [facility] Orthopedics - Radiology [address] [place] [address] [place] [address] [facility] [address] [place] [address] Pain of right tibia Social [...] st Contact Info) Description 07/27/2024 12:50 PM BATH MIXER Appointment [facility] Health Imaging Services - Ultrasound [address] [facility] [address] [place] [address] [place] [address] [place] [address] 08/03/2024 1:00 PM BATH MIXER Office Visit [facility] - HOUSE CLEANER SUPERVISOR [address] [place] [phone] [place] [address] [place], [place] [phone] documented as of this encounter Goals Goal [...] tibia documented in this encounter Care Teams Pocket Builder Relationship Specialty Start Date End Date Va Olivo MD PCP - General Pediatrics 12/08/17 documented as of this encounter
--- OUTSIDE RECORDS SUMMARY | 2024-07-22 19:23 | XMS_ITS | Encounter Summary ---
Author Organization [facility] Health Address [address] [facility] [place] [address] Care Team Providers Care Hat Cutter Name Role Phone Va Olivo MD Primary Care Provider [phone] Encounter Details Date Type Department Care Team [...] st Contact Info) Description 07/27/2024 12:50 PM GREASE PRESS HELPER Appointment [facility] Health Imaging Services - Ultrasound [address] [facility] [address] [place] [address] [place] [address] [place] [address] 08/03/2024 1:00 PM GREASE PRESS HELPER Office Visit [facility] - QA TEST ANALYST [address] [place] [address] [place] [address] [place], [place] [address] documented as of this encounter Goals Goal Patient Goal Type Associated Problems Recent Progress Patient-Stated? Author Yearly PCP visit Lifestyle Aster Willard, RN Note: Come into office for yearly wcc. Take recommended medication(s) Lifestyle Aster Willard, RN documented as of this encounter Visit Diagnoses Not on filedocumented in this encounter Care Teams Hat Cutter Relationship Specialty Start Date End Date Va Olivo MD PCP - General Pediatrics 12/08/17 documented as of this encounter
--- OUTSIDE RECORDS SUMMARY | 2024-07-22 19:23 | XMS_ITS | Encounter Summary ---
Author Organization [facility] Health Address [address] [place] [address] Care Team Providers Care Domestic Freight Forwarder Name Role Phone Va Olivo MD Primary Care Provider [phone] Encounter Details Date Type Department Care Team [...] Contact Info) Description 07/27/2024 12:50 PM RN ADVICE Appointment [facility] Health Imaging Services - Ultrasound [address] [facility] [address] [place] [address] [place] [address] [place] [address] 08/03/2024 1:00 PM RN ADVICE Office Visit [facility] - SILO WORKER [address] [place] [address] [place] [address] [place], [place] [phone] documented as of this encounter Goals Goal Patient Goal Type Associated Problems Recent Progress Patient-Stated? Author Yearly PCP visit Lifestyle Aster Willard, RN Note: Come into office for yearly wcc. Take recommended medication(s) Lifestyle Aster Willard, RN documented as of this encounter Visit Diagnoses Not on filedocumented in this encounter Care Teams Domestic Freight Forwarder Relationship Specialty Start Date End Date Va Olivo MD PCP - General Pediatrics 12/08/17 documented as of this encounter
--- OUTSIDE RECORDS SUMMARY | 2024-07-22 19:23 | XMS_ITS | Encounter Summary ---
Author Organization [facility] Address [address] [facility] [place] [address] Care Team Providers Care Print Line Inspector Name Role Phone Va Olivo MD Primary Care Provider [phone] Reason for Referral * Radiology Services (Routine) - Closed Specialty Diagnoses / Procedures Referred By Contac t Referred To Contact MRI Diagnoses Pain of right tibia Procedures [place] [address] [address] [place] [address] Referral ID Status Reason Start Date Expiration Date Visits Re quested Visits Authorized [id number] Closed 04/01/2023 03/31/2024 1 1 Reason for Visit * Radiology Services (Routine) - Closed Specialty Diagnoses / Procedures Referred By Contac t Referred To Contact MRI Diagnoses Pain of right tibia Procedures MRI [place] [address] [address] [place] [address] Referral ID Status Reason Start Date Expiration Date Visits Re quested Visits Authorized [id number] Closed 04/01/2023 03/31/2024 1 1 Encounter Details Date Type Department Care Team (Latest Contact Info) Description 04/10/2023 9:00 AM CDT - 04/10/2023 9:06 AM CDT Hospital Encounter [facility] Imaging Services - MRI [address] [place] [phone] Discharge Disposition: Home or Self Care Social [...] st Contact Info) Description 07/27/2024 12:50 PM RATE SETTER Appointment [facility] Health Imaging Services - Ultrasound [address] [facility] [address] [place] [address] [place] [address] [address] [facility] [address] [place] [address] 08/03/2024 1:00 PM RATE SETTER Office Visit [facility] - LEAD NET SOFTWARE DEVELOPER [address] [place] [phone] [place] [address] [address] [place], [place] [address] documented as of this encounter Goals Goal [...] tibia documented in this encounter Care Teams Print Line Inspector Relationship Specialty Start Date End Date Va Olivo MD PCP - General Pediatrics 12/08/17 documented as of this encounter
--- OUTSIDE RECORDS SUMMARY | 2024-07-22 19:23 | XMS_ITS | Encounter Summary ---
Author Organization [facility] Address [address] [facility] [place] [address] Care Team Providers Care Piecer Up Name Role Phone Va Olivo MD Primary Care Provider Reason for Referral * Neurology (Routine) - Closed Specialty Diagnoses / Procedures Referred By Julia lemus Referred To Contact Electrophysiology Diagnoses Seizure (HCC) Procedures EEG AWAKE AND ASLEEP Jhonatan Nuñez MD [address] [place] [address] Cg Eeg/Emg [address] [place] [address] Referral ID Status Reason Start Date Expiration Date Visits Re quested Visits Authorized [id number] Closed 05/13/2022 05/13/2023 1 1 ECTOR TIMERS Reason for Visit * Neurology (Routine) - Closed Specialty Diagnoses / Procedures Referred By Julia lemus Referred To Contact Electrophysiology Diagnoses Seizure (HCC) Procedures EEG AWAKE AND ASLEEP Jhonatan Nuñez MD [address] [place] [address] Cg Eeg/Emg [address] [place] [address] Referral ID Status Reason Start Date Expiration Date Visits Re quested Visits Authorized [id number] Closed 05/13/2022 05/13/2023 1 1 Encounter Details Date Type Department Care Team (Latest Contact Info) Description 05/19/2022 10:00 AM INSPECTOR TIMERS - 05/19/2022 11:59 PM INSPECTOR TIMERS Hospital Encounter [facility] Dustin [facility] [address] [place] [address] Jhonatan Nuñez MD [address] [place] [address] Discharge Disposition: Home or Self Care [...] Coronavirus/COVID-19? No / Unsure 05/19/2022 9:59 AM INSPECTOR TIMERS documented as of this encounter Medications at [...] were not included. Name: Greyson Kevin CSN: [id number] Type: Routine Date of Test: 05/19/2022 Ordering Provider: Jhonatan Nuñez MD PCP: Va Olivo MD Primary School Teacher: Bob Nuñez MD Routine EEG Report DESCRIPTION [...] be interpreted. Jhonatan Nuñez MD Pediatric Neurology ECTOR TIMERS * Valeri Nazario EEG T. - 05/19/2022 11:28 AM CST Outpatient EEG completed. Pt tolerated well. No skin concerns. ECTOR TIMERS documented in this encounter Plan of Treatment Upcoming Encounters Date Type Department Care Team (Late st Contact Info) Description 07/27/2024 12:50 PM INSPECTOR TIMERS Appointment [facility] Imaging Services - Ultrasound [address] [place] [address] [place] [address] [place] [address] 08/03/2024 1:00 PM INSPECTOR TIMERS Office Visit [facility] Group - CLERICAL CLERK [address] [place] [phone] [place] [address] [place] [address] documented as of this encounter Goals Goal Patient Goal Type Associated Problems Recent Progress Patient-Stated? Author Yearly PCP visit Lifestyle Aster Willard, RN Note: Come into office for yearly wcc. Take recommended medication(s) Lifestyle Aster Willard, RN documented as of this encounter Procedures Procedure Name Priority Date/Time Associated Diagnosis Comments EEG AWAKE AND ASLEEP Routine 05/19/2022 10:05 AM INSPECTOR TIMERS Seizure (HCC) documented in this encounter Visit Diagnoses Diagnosis Seizure (HCC) Other convulsions documented in this encounter Care Teams Piecer Up Relationship Specialty Start Date End Date Va Olivo MD PCP - General Pediatrics 12/08/17 documented as of this encounter
--- OUTSIDE RECORDS SUMMARY | 2024-07-22 19:23 | XMS_ITS | Encounter Summary ---
Author Organization [facility] Address [address] [facility] [place] [address] Care Team Providers Care Rn Wound Care Name Role Phone Va Olivo MD Primary Care Provider [phone] Reason for Visit * Reason Comments Asthma Encounter Details Date Type Department Care Team (Late st Contact Info) Description 09/09/2022 11:10 AM PATCH FINISHER - 09/09/2022 11:59 AM PATCH FINISHER Hospital Encounter [facility] [address] [place] [address] [id number] Jori Santiago MD Retired per [id number] 09/11/2023 Social History Tobacco Use Types Packs/Day [...] Comments Blood Pressure 122/72 09/09/2022 11:31 AM PATCH FINISHER Pulse 118 09/09/2022 11:31 AM PATCH FINISHER Temperature 36.4 ??C (97.5 ??F) 09/09/2022 11:31 AM C Respiratory Rate 20 09/09/2022 11:31 AM PATCH FINISHER Oxygen Saturation - - Inhaled Oxygen Concentration - - Weight 57.6 kg (127 lb) 09/09/2022 11:31 AM PATCH FINISHER Height 161 cm (5' 3.39 ) 09/09/2022 11:31 AM PATCH FINISHER Body Mass Index 22.22 09/09/2022 11:31 AM PATCH FINISHER Body Mass Index Percentile 61.78% 09/09/2022 11: 31 AM PATCH FINISHER Growth Chart: [facility] (Girls, 2- 20 Years) documented [...] original note were not included. Division of [facility] [place] [address] ??? Name: Greyson Kevin Age: [age] year old 10 month old Sex: female Date: 09/09/2022 : [facility] Acute Visit Chief Complaint Asthma Greyson Kevin is a 16 year old female that was seen today at the [facility] [place] [facility] for an Acute Visit. She was [...] uncomplicated ??? Seizure (CMS/HCC) happened thru out [facility] MSA Management Allergies Patient has no known allergies. Immunizations Up to date Vitals and Growth Parameters Temp: 97.5 ??F (36.4 ??C) Height: 161 cm (5' 3.39 ) 37 %ile (Z= -0.32) based on CDC (Girls, 2-20 Years) Fhpxnci-pgy-lge data based on Stature recorded on 09/09/2022. Weight: 57.6 kg (127 lb) 57 %ile (Z= 0.17) based on CDC (Girls, 2-20 Years) [id number] data using vitals from 09/09/2022. BMI: 22.22 [...] or fail to improve. Jori Santiago MD H FINISHER documented in this encounter Plan of Treatment Upcoming Encounters Date Type Department Care Team (Late st Contact Info) Description 07/27/2024 12:50 PM PATCH FINISHER Appointment [facility] Imaging Services - Ultrasound [address] [facility] [address] [place] [address] [place] [address] [place], [place] [id number] 08/03/2024 1:00 PM PATCH FINISHER Office Visit [facility] - CARD FIXER [address] [place] [phone] [place] [address] [place] [address] documented as of this encounter Goals Goal Patient Goal Type Associated Problems Recent Progress Patient-Stated? Author Yearly PCP visit Lifestyle Aster Willard, RN Note: Come into office for yearly wcc. Take recommended medication(s) Lifestyle Aster Willard, RN documented as of this encounter Procedures Procedure Name Priority Date/Time Associated Diagnosis Comments SARS-COV-2 INFLUENZA ANTIGEN - POCT INTER Routine 09/09/2022 11:37 AM PATCH FINISHER Influenza B documented in this encounter Results * (ABNORMAL) SARS-COV-2 INFLUENZA ANTIGEN - POCT INTER (09/09/2022 11:37 AM PATCH FINISHER) SARS-CoV-2 Ag Negative Negative 09/09/2022 11:45 AM PATCH FINISHER [facility] Influenza A Antigen Negative Negative 09/09/2022 11:45 AM PATCH FINISHER [facility] Influenza B Antigen Positive(A) Negative 09/09/2022 11:45 AM PATCH FINISHER [facility] Microbiology SPECIMEN FROM NASAL FOSSAE / Unknown 09/09/2022 11:37 AM PATCH FINISHER 09/09/2022 11:45 AM PATCH FINISHER Narrative MINH PEDRAZA - 09/09/2022 11:45 AM PATCH FINISHER SARS-CoV-2 antigen testing is authorized for use [...] POINT OF CARE ORDERABLES Performing Organization Address City/State/[facility] Co de Phone Number MINH NAVARRO [facility] [address] [phone] documented in this encounter Visit Diagnoses Diagnosis Influenza B- Primary Influenza with other respiratory manifestations * Assessment & Plan Note - Jori Santiago MD - 09/09/2022 11:55 AM PATCH FINISHER Associated Problem(s): Influenza B Give albuterol prn, if increase distress call-mother aware that the flu can exacerbate the flu H FINISHER documented in this encounter Care Teams Rn Wound Care Relationship Specialty Start Date End Date Va Olivo MD PCP - General Pediatrics 12/08/17 documented as of this encounter
--- OUTSIDE RECORDS SUMMARY | 2024-07-22 19:23 | XMS_ITS | Encounter Summary ---
Author Organization [facility] Address [address] [facility] [place] [address] Care Team Providers Care Clinical Biostatistics Director Name Role Phone Va Olivo MD Primary Care Provider Reason for Visit * Reason Onset Date Comments Question 04/29/2022 Encounter Details Date Type Department Care Team ([facility] st Contact Info) Description 04/29/2022 Telephone [facility] Pediatrics [address] [place] [address] Va Olivo MD [address] [facility] [phone] [place] [address] Question Social History Tobacco Use [...] Coronavirus/COVID-19? No / Unsure 05/19/2022 9:59 AM PENSIONS RETIREMENT PLAN SPECIALIST documented as of this encounter Miscellaneous Notes [...] gave her the number to Neurology at [facility] because she inquired about a seizure action plan ([facility] told her to fu with neuro). Please advise. documented in this encounter Plan of Treatment Upcoming Encounters Date Type Department Care Team (Late st Contact Info) Description 07/27/2024 12:50 PM PENSIONS RETIREMENT PLAN SPECIALIST Appointment [facility] Imaging Services - Ultrasound [address] [address] [place] [address] [place] [address] 08/03/2024 1:00 PM PENSIONS RETIREMENT PLAN SPECIALIST Office Visit [facility] - STOCK FITTER [address] [place] [address] [place] [address] [place] [address] documented as of this encounter Goals Goal Patient Goal Type Associated Problems Recent Progress Patient-Stated? Author Yearly PCP visit Lifestyle Aster Willard, RN Note: Come into office for yearly wcc. Take recommended medication(s) Lifestyle No Aster Garnica, RN documented as of this encounter Visit Diagnoses Not on filedocumented in this encounter Care Teams Clinical Biostatistics Director Relationship Specialty Start Date End Date Va Olivo MD PCP - General Pediatrics 12/08/17 documented as of this encounter
--- OUTSIDE RECORDS SUMMARY | 2024-07-22 19:23 | XMS_ITS | Encounter Summary ---
Author Organization [facility] Address [address] [place] [address] Care Team Providers Care Mobile Lounge Driver Or Operator Name Role Phone Va Olivo MD Primary Care Provider [phone] Reason for Visit * Reason Onset Date Comments Question 03/02/2023 Encounter Details Date Type Department Care Team (Late st Contact Info) Description 03/02/2023 Telephone [facility] Pediatrics [address], [address] [place] [address] Gillian Casillas, SUPERVISOR [employer] MANAGER [address] [place] [address] Question Social History Tobacco Use [...] st Contact Info) Description 07/27/2024 12:50 PM OVEN UNLOADER Appointment [facility] Imaging Services - [facility]trasound [address] [facility] [address] [place], [place] [phone] [place] [address] [place] [address] 08/03/2024 1:00 PM OVEN UNLOADER Office Visit [facility] - RESEARCH SCHOLAR [address] [place] [phone] [place] [address] [place] [address] documented as of this encounter Goals Goal Patient Goal Type Associated Problems Recent Progress Patient-Stated? Author Yearly PCP visit Lifestyle No Aster Garnica RN Note: Come into office for yearly wcc. Take recommended medication(s) Lifestyle No Aster Garnica RN documented as of this encounter Visit Diagnoses Not on filedocumented in this encounter Care Teams Mobile Lounge Driver Or Operator Relationship Specialty Start Date End Date Va Olivo MD PCP - General Pediatrics 12/08/17 documented as of this encounter
--- OUTSIDE RECORDS SUMMARY | 2024-07-22 19:23 | XMS_ITS | Encounter Summary ---
Author Organization [facility] [employer] Address [address] [place] [address] Care Team Providers Care Medical Insurance Clerk Name Role Phone Va Olivo MD Primary Care Provider [phone] Reason for Referral * Neurology (Routine) - Closed Specialty Diagnoses / Procedures Referred By Contac t Referred To Contact Electrophysiology Diagnoses Seizure (HCC) Procedures EEG AWAKE AND ASLEEP Jhonatan Nuñez MD [address] [place] [address] [facility] Eeg/Emg [address] [place] [address]. [place] [address] Referral ID Status Reason Start Date Expiration Date Visits Re quested Visits Authorized [id number] Closed 05/13/2022 05/13/2023 1 1 Reason for Visit * Reason Onset Date Comments Appointment 05/13/2022 Encounter Details Date Type Department Care Team (Late st Contact Info) Description 05/13/[address] [facility] Pediatrics - Neurology [address] [place] [id number] [facility] Update Information Appointment Social History [...] 05/13/2022 1:41 PM CDT Referral received to [facility] Neurology. Referral Reason: Syncope and collapse Seizure-like activity Referring Source: ANTONIO BLUM Insurance Carrier: [facility] Scheduling Plan: General Neuro: yes NOS: h/o of seizure EEG: yes Appointment scheduled for 05/19 at 9:[address] Nuñez. Please place EEG order and schedule appt. documented in this encounter Plan of Treatment Upcoming Encounters Date Type Department Care Team (Late st Contact Info) Description 07/27/2024 12:50 PM SPANISH INTERPRETER Appointment [facility] Imaging Services - Ultrasound [address] [facility] [address] [place] [address] [place] [address] [facility] [address] [place] [address] 08/03/2024 1:00 PM SPANISH INTERPRETER Office Visit [facility] - LEAD TECHNICIAN [address] [place] [phone] [place] [address] [facility] [address] [place], [place] [phone] documented as of this encounter Goals Goal Patient Goal Type Associated Problems Recent Progress Patient-Stated? Author Yearly PCP visit Lifestyle Aster Willard, RN Note: Come into office for yearly wcc. Take recommended medication(s) Lifestyle No Aster Garnica, RN documented as of this encounter Visit Diagnoses Diagnosis Seizure (HCC)- Primary Other convulsions documented in this encounter Care Teams Medical Insurance Clerk Relationship Specialty Start Date End Date Va Olivo MD PCP - General Pediatrics 12/08/17 documented as of this encounter
--- OUTSIDE RECORDS SUMMARY | 2024-07-22 19:23 | XMS_ITS | Encounter Summary ---
Author Organization [facility] Address [address] [facility] [place] [address] Care Team Providers Care Composite Boat Builder Name Role Phone Va Olivo MD Primary Care Provider [phone] Reason for Visit * Reason Onset Date Comments MEDICATION REFILL 03/18/2023 Encounter Details Date Type Department Care Team (Late st Contact Info) Description 03/18/2023 Refill [facility] Pediatrics [address] [place] [address] Va Olivo MD [address] [facility] [address] [place] [address] MEDICATION REFILL Social History Tobacco [...] st Contact Info) Description 07/27/2024 12:50 PM COUNSELOR/ART THERAPIST Appointment [facility] Imaging Services - Ultrasound [address] [facility] [address] [place], [place] [phone] [place] [address] [place], [place] [phone] 08/03/2024 1:00 PM COUNSELOR/ART THERAPIST Office Visit [facility] Medical Group - SLOPE RUNNER [address] [place] [phone] [place] [address] [place] [address] documented as of this encounter Goals Goal Patient Goal Type Associated Problems Recent Progress Patient-Stated? Author Yearly PCP visit Lifestyle No Aster Garnica RN Note: Come into office for yearly wcc. Take recommended medication(s) Lifestyle No Aster Garnica RN documented as of this encounter Visit Diagnoses Not on filedocumented in this encounter Care Teams Composite Boat Builder Relationship Specialty Start Date End Date Va Olivo MD PCP - General Pediatrics 12/08/17 documented as of this encounter
--- OUTSIDE RECORDS SUMMARY | 2024-07-22 19:23 | XMS_ITS | Encounter Summary ---
Author Organization [facility] Address [address] [facility] [place] [address] Care Team Providers Care Production Trainer Name Role Phone Va Olivo MD Primary Care Provider [phone] Reason for Visit * Reason Onset Date Comments Results 05/19/2022 Encounter Details Date Type Department Care Team (Late st Contact Info) Description 05/19/2022 Telephone [facility] - Neurology [facility] [facility] [place] [place] [address] Jhonatan Nuñez MD [facility] [place] [address] Results Social History Tobacco Use Types Packs/Day [...] Coronavirus/COVID-19? No / Unsure 05/19/2022 9:59 AM COATER BRAKE LININGS documented as of this encounter Miscellaneous Notes * Telephone Encounter - Shadia Covington RN - 05/21/2022 11:29 AM CST Relayed normal EEG result to parent. Mother request letter for school be faxed to [facility], fax [phone], completed. Aware to call back for appt in Aug 2022. ER BRAKE LININGS * Telephone Encounter - Jhonatan Nuñez MD - 05/20/2022 5:02 PM COATER BRAKE LININGS EEG normal. Dr. Brito drafted a letter stating these episodes were not epileptic and that she should be allowedto sit down to prevent a syncopal episode and can recover in the nurses office etc. Maybe it wasn'tprinted out at the visit? But I thought it was. ER BRAKE LININGS * Telephone Encounter - Shadia Covington RN [...] back on letter needs for school, etc ER BRAKE LININGS * Telephone Encounter - Shadia Covington RN [...] form for school for [employer] vs [employer]? ER BRAKE LININGS documented in this encounter Plan of Treatment Upcoming Encounters Date Type Department Care Team (Late st Contact Info) Description 07/27/2024 12:50 PM COATER BRAKE LININGS Appointment [facility] Imaging Services - Ultrasound [address] [facility] [address] [place] [address] [place] [address] [place] [address] 08/03/2024 1:00 PM COATER BRAKE LININGS Office Visit [facility] - MACHINED PARTS QUALITY INSPECTOR [address] [place] [phone] [place] [address] [place], [place] [phone] documented as of this encounter Goals Goal Patient Goal Type Associated Problems Recent Progress Patient-Stated? Author Yearly PCP visit Lifestyle Aster Willard, RN Note: Come into office for yearly wcc. Take recommended medication(s) Lifestyle No Aster Garnica RN documented as of this encounter Visit Diagnoses Not on filedocumented in this encounter Care Teams Production Trainer Relationship Specialty Start Date End Date Va Olivo MD PCP - General Pediatrics 12/08/17 documented as of this encounter
--- OUTSIDE RECORDS SUMMARY | 2024-07-22 19:23 | XMS_ITS | Encounter Summary ---
Author Organization [facility] Address [address] [facility] [place] [address] Care Team Providers Care Drapery Worker Name Role Phone Va Olivo MD Primary Care Provider Reason for Visit * Reason Onset Date Comments MEDICATION REFILL 03/19/2023 Encounter Details Date Type Department Care Team (Late st Contact Info) Description 03/19/2023 Refill [facility] Pediatrics [address] [place] [address] Va Olivo MD [address] [facility] [phone] [place] [address] MEDICATION REFILL Social History Tobacco [...] st Contact Info) Description 07/27/2024 12:50 PM CERTIFIED MEDICAL CODING SPECIALIST Appointment [facility] Imaging Services - Ultrasound [address] [facility] [address] [place], [place] [phone] [place] [address] [place] [address] 08/03/2024 1:00 PM CERTIFIED MEDICAL CODING SPECIALIST Office Visit [facility] - MUFFLER MECHANIC [address] [place] [phone] [place] [address] [place] [address] documented as of this encounter Goals Goal Patient Goal Type Associated Problems Recent Progress Patient-Stated? Author Yearly PCP visit Lifestyle Aster Willard RN Note: Come into office for yearly wcc. Take recommended medication(s) Lifestyle No Aster Garnica RN documented as of this encounter Visit Diagnoses Not on filedocumented in this encounter Care Teams Drapery Worker Relationship Specialty Start Date End Date Va Olivo MD PCP - General Pediatrics 12/08/17 documented as of this encounter
--- OUTSIDE RECORDS SUMMARY | 2024-07-22 19:23 | XMS_ITS | Patient Health Summary ---
Author Organization [facility] Address [address] [place] [address] Care Team Providers Care Grocery Clerk Marking Name Role Phone Va Olivo MD Primary Care Provider [phone] Note from [facility],non-owned Affiliates and Associated Physician Practices is amultiple site organization consisting of ambulatory clinics and hospital sitesin [place], [place], [place] and [place]. This disclosure is being madepursuant to the Care Everywhere program and may not contain all information available regarding this patient. Last updated 18.[facility] Allergies * Fd&C Blue #2-Levetiracetam(Itching) Medications * [...] Comments Blood Pressure 110/72 07/20/2024 1:23 PM CLAMP OPERATOR Pulse 70 07/20/2024 1:23 PM CLAMP OPERATOR Temperature 36.7 ??C (98 ??F) 07/19/2024 3:34 PM CLAMP OPERATOR Respiratory Rate 16 07/19/2024 3:34 PM CLAMP OPERATOR Oxygen Saturation 100% 07/20/2024 1:23 PM CLAMP OPERATOR Inhaled Oxygen Concentration - - Weight 66.3 kg (146 lb 3.2 oz) 07/20/2024 1:23 P M CLAMP OPERATOR Height 158.5 cm (5' 2.4 ) 07/20/2024 1:23 PM CLAMP OPERATOR Body Mass Index 26.4 07/20/2024 1:23 PM CLAMP OPERATOR Procedures * ESTRADIOL(Performed 07/20/2024) Performed for [...] + TIBC + FERRITIN (07/20/2024 2:06 PM CLAMP OPERATOR) TIBC 388 250 - 450 ug/dL [facility] INSURANCE BILL UIBC 349 131 - 425 ug/dL [facility] INSURANCE BILL Iron 39 27 - 159 ug/dL [facility] INSURANCE BILL Iron Saturation 10(L) 15 - 55 % [facility] INSURANCE BILL Ferritin 17 15 - 77 ng/mL [facility] INSURANCE BILL Blood BLOOD SPECIMEN / Unknown 07/20/2024 2:06 PM CLAMP OPERATOR 07/20/2024 Narrative [facility] INSURANCE BILL - 07/21/2024 7:09 AM CLAMP OPERATOR Performed at: ??01 - [address] ??[id number] Aeronautical Design Engineer: Dillon Aguirre PhD, Phone: ??[phone] Jeremie Perez MD LAB - CHEMISTRY ORD ERABLES [facility] INSURANCE BILL [address] [place] [address] * TSH REFLEX FREE T4 (07/20/2024 2:06 PM CLAMP OPERATOR) TSH 1.180 0.450 - 4.500 uIU/mL [facility] INSURANCE BILL Blood BLOOD SPECIMEN / Unknown 07/20/2024 2:06 PM CLAMP OPERATOR 07/20/2024 Narrative [facility] INSURANCE BILL - 07/21/2024 8:13 AM CLAMP OPERATOR Performed at: ??01 - [address] ??[id number] Aeronautical Design Engineer: Dillon Aguirre PhD, Phone: ??[phone] Jeremie Perez MD LAB - CHEMISTRY ORD ERABLES Performing Organization Address [facility] Co de Phone Number [facility] INSURANCE BILL [address] [place] [address] * PROLACTIN (07/20/2024 2:06 PM CLAMP OPERATOR) Only the most recent of2 resultswithin the time period is included. Prolactin 7.5 4.8 - 33.4 ng/mL [facility] INSURANCE BILL Blood BLOOD SPECIMEN / Unknown 07/20/2024 2:06 PM CLAMP OPERATOR 07/20/2024 Narrative [facility] INSURANCE BILL - 07/21/2024 7:09 AM CLAMP OPERATOR Performed at: ??01 - [facility] [address] ??[id number] Aeronautical Design Engineer: Dillon Aguirre PhD, Phone: ??[phone] Jeremie Perez MD LAB - CHEMISTRY ORD ERABLES Performing Organization Address City/[facility] Co de Phone Number [facility] INSURANCE BILL [address] [place] [address] * ESTRADIOL (07/20/2024 2:06 PM CLAMP OPERATOR) Estradiol 56.0 pg/mL [facility] INSURANCE BILL Comment: ? Adult Female ? Range ?Follicular phase ? 12.5 - 166.0 ?Ovulation phase ?85.8 - 498.0 ?Luteal phase ? 43.8 - 211.0 ?Postmenopausal ? <6.0 - ??54.7 ?1st trimester ? 215.0 - >4300.0 Akhil ECLIA methodology Blood BLOOD SPECIMEN / Unknown 07/20/2024 2:06 PM CLAMP OPERATOR 07/20/2024 Narrative [facility] INSURANCE BILL - 07/21/2024 7:09 AM CLAMP OPERATOR Performed at: ??01 - [facility] [address] [place] [address] ??[id number] Aeronautical Design Engineer: Dillon Aguirre PhD, Phone: ??[phone] Jeremie Perez MD LAB - CHEMISTRY ORD ERABLES [facility] INSURANCE BILL [address] [place] [address] * (ABNORMAL) CBC W/O DIFFERENTIAL (07/20/2024 2:06 PM CLAMP OPERATOR) WBC 3.1(L) 3.4 - 10.8 x10E3/uL [...] BLOOD SPECIMEN / Unknown 07/20/2024 2:06 PM CLAMP OPERATOR 07/20/2024 Narrative [facility] INSURANCE BILL - 07/21/2024 7:09 AM CLAMP OPERATOR Performed at: ??01 - [facility] [address] [place] [address] ??[id number] Aeronautical Design Engineer: Dillon Aguirre PhD, Phone: ??[phone] Jeremie Perez MD LAB - HEMATOLOGY OR DERABLES Performing Organization Address City/State/[facility] Co de Phone Number [facility] INSURANCE BILL [address] [place] [address] * FSH + LH PANEL (07/20/2024 2:06 PM CLAMP OPERATOR) LH 27.4 mIU/mL [facility] INSURANCE BILL [...] BLOOD SPECIMEN / Unknown 07/20/2024 2:06 PM CLAMP OPERATOR 07/20/2024 Narrative [facility] INSURANCE BILL - 07/21/2024 7:09 AM CLAMP OPERATOR Performed at: [facility] - [facility] [address] [place], [place] ??[id number] Aeronautical Design Engineer: Dillon Aguirre PhD, Phone: ??[phone] Jeremie Perez MD LAB - CHEMISTRY ORD ERABLES Performing Organization Address City/State/[facility] Co de Phone Number [facility] INSURANCE BILL [address] [place] [address] * CHLAMYDIA + GC + TRICH DNA AMPL (07/20/2024 12:00 AM CLAMP OPERATOR) Only the most recent of2 resultswithin the time period is included. Chlamydia trachomatis AUGUSTO Negative Negative [facility] ACCOUNT BILL GC DNA Probe Negative Negative [facility] ACCOUNT BILL Trichomonas vaginalis by AUGUSTO Negative Negative [facility] ACCOUNT BILL 07/20/2024 07/20/2024 Narrative [facility] ACCOUNT BILL - 07/21/2024 9:07 PM CLAMP OPERATOR Performed at: ??01 - Lab[address], [place] ??[id number] Aeronautical Design Engineer: Clara Crawford MD, Phone: ??[phone] Jeremie Perez MD LAB - MICROBIOLOGY ORDERABLES [facility] [address] [place] [address] * (ABNORMAL) URINALYSIS REFLEX TO MICROSCOPIC NO CULTURE (07/19/2024 4:20 PM CLAMP OPERATOR) Color UA Yellow Yellow, Straw 07/19/2024 5:04 PM CLAMP OPERATOR [facility] Clarity UA Clear Clear 07/19/2024 5:04 PM CLAMP OPERATOR [facility] Glucose UA Normal Normal 07/19/2024 5:04 PM CLAMP OPERATOR [facility] Bilirubin UA Negative Negative 07/19/2024 5:04 PM CLAMP OPERATOR [facility] Ketone UA Negative Negative 07/19/2024 5:04 PM CLAMP OPERATOR [facility] Specific [place] UA 1.032(H) 1.005 - 1.030 07/19/2024 5:04 PM CLAMP OPERATOR [facility] Blood UA 3+(A) Negative 07/19/2024 5:04 PM CLAMP OPERATOR [facility] pH UA 7.0 5.0 - 9.0 pH 07/19/2024 5:04 PM CLAMP OPERATOR [facility] Protein UA Trace(A) Negative 07/19/2024 5:04 PM CLAMP OPERATOR [facility] Urobilinogen UA 2.0(A) Normal mg/dL 025 5:04 PM CLAMP OPERATOR [facility] Nitrite UA Negative Negative 07/19/2024 5:04 PM CLAMP OPERATOR [facility] Leukocyte UA Negative Negative 07/19/2024 5:04 PM CLAMP OPERATOR [facility] RBC UA >100(A) 0 - 5 # /hpf 07/19/2024 5:04 PM CLAMP OPERATOR [facility] WBC UA 0-5 0 - 5 # /hpf 07/19/2024 5:04 PM CLAMP OPERATOR [facility] Bacteria UA None Seen None Seen 07/19/2024 5:04 PM CLAMP OPERATOR [facility] Squamous Epithelial Cells 0-2 0 - 5 /hpf 07/19/2024 5:04 PM CLAMP OPERATOR [facility] Mucus UA 2+ /LPF 07/19/2024 5:04 PM CLAMP OPERATOR [facility] Urine URINE SPECIMEN OBTAINED BY CLEAN CATCH PROCEDURE / Unknown Collection / Unknown 07/19/2024 4:20 PM CLAMP OPERATOR 07/19/2024 4:51 PM CLAMP OPERATOR Narrative [facility] - 07/19/2024 5:04 PM CLAMP OPERATOR Ruchi Chappell MOLDING PROCESS TECHNICIAN-MITER SAW OPERATOR LAB - URINALYSIS ORDERABLES [facility] [address] [place] [address] * (ABNORMAL) CBC W AUTO DIFFERENTIAL (07/19/2024 4:18 PM CLAMP OPERATOR) Only the most recent of3 resultswithin the time period is included. WBC 2.9(L) 4.0 - 10.7 x10E9/L 07/19/2024 4:56 PM [facility] RBC Count 4.11 3.90 - 5.20 x10E12/L 07/19/2024 4:56 PM [facility] Hemoglobin 11.1(L) 11.9 - 15.8 g/dL 07/19/2024 4:56 PM [facility] Hematocrit 34.0(L) 34.8 - 46.1 % 07/19/2024 4:56 PM [facility] MCV 82.7 80.0 - 98.0 fL 07/19/2024 4:56 PM [facility] MCH 27.0 26.7 - 33.6 pg 07/19/2024 4:56 PM [facility] MCHC 32.6 31.7 - 36.3 g/dL 07/19/2024 4:56 PM [facility] RDW-CV 11.7 11.3 - 14.8 % 07/19/2024 4:56 PM [facility] Platelet Count 345 150 - 420 x10E9/L 07/19/2024 4:56 PM [facility] MPV 10.3 7.8 - 11.4 fL 07/19/2024 4:56 PM [facility] Neutrophil % 44.6 41.0 - 74.0 % 07/19/2024 4:56 PM [facility] Lymphocyte % 44.0 17.0 - 47.0 % 07/19/2024 4:56 PM CLAMP OPERATOR [facility] Monocyte % 8.6 3.0 - 11.0 % 07/19/2024 4:56 PM CLAMP OPERATOR [facility] Eosinophil % 1.4 0.0 - 7.0 % 07/19/2024 4:56 PM CLAMP OPERATOR [facility] Basophil % 1.4 0.0 - 1.6 % 07/19/2024 4:56 PM CLAMP OPERATOR [facility] Immature Granulocytes % 0.0 0.0 - 1.0 % 07/19/2024 4:56 PM [facility] Neutrophil Absolute 1.30(L) 1.60 - 7.50 x10E9/L 07/19/2024 4:56 PM CLAMP OPERATOR [facility] Lymphocyte Absolute 1.28 1.00 - 4.40 x10E9/L 07/19/2024 4:56 PM [facility] Monocyte Absolute 0.25 0.15 - 1.00 x10E9/L 07/19/2024 4:56 PM [facility] Eosinophil Absolute 0.04 0.00 - 0.60 x10E9/L 07/19/2024 4:56 PM [facility] Basophil Absolute 0.04 0.00 - 0.13 x10E9/L 07/19/2024 4:56 PM [facility] Blood BLOOD SPECIMEN / Unknown Venipuncture / Unknown 07/19/2024 4:18 PM CLAMP OPERATOR 07/19/2024 4:50 PM CLAMP OPERATOR Ruchi Chappell MOLDING PROCESS TECHNICIAN-MITER SAW OPERATOR LAB - HEMATOLOGY ORDERABLES Performing Organization Address City/State/[facility] Co de Phone Number [facility] [address] [place] [address] * (ABNORMAL) COMPREHENSIVE METABOLIC PANEL (07/19/2024 4:18 PM CLAMP OPERATOR) Only the most recent of3 resultswithin the time period is included. [facility] Glucose 93 70 - 99 mg/dL 07/19/2024 5:15 PM CLAMP OPERATOR [facility] Sodium 139 136 - 145 mmol/L 07/19/2024 5:15 PM [facility] Potassium 5.7(H) 3.5 - 5.1 mmol/L 07/19/2024 5:15 PM [facility] Comment:Specimen is Moderate ly Hemolyzed. This potassium result may be falsely elevated. Chloride 109(H) 98 - 107 mmol/L 07/19/2024 5:15 PM [facility] CO2 20(L) 22 - 29 mmol/L 07/19/2024 5:15 PM [facility] Calcium 10.0 8.4 - 10.4 mg/dL 07/19/2024 5:15 PM [facility] Anion Gap 10 6 - 16 mmol/L 07/19/2024 5:15 PM [facility] BUN 15 5.3 - 18.7 mg/dL 07/19/2024 5:15 PM [facility] Creatinine 1.05 0.57 - 1.11 mg/dL 07/19/2024 5:15 PM [facility] Alkaline Phosphatase 68 40 - 150 U/L 07/19/2024 5:15 PM [facility] ALT 15 0 - 55 U/L 07/19/2024 5:15 PM [facility] AST 36(H) 5 - 34 U/L 07/19/2024 5:15 PM [facility] Comment:Specimen is Moderate ly Hemolyzed. This AST result may be falsely elevated. Protein Total 8.5(H) 6.4 - 8.3 gm/dL 07/19/2024 5:15 PM [facility] Comment:Specimen is Moderate ly Hemolyzed. This total protein result may be falsely elevated. Albumin 4.5 3.4 - 5.0 gm/dL 07/19/2024 5:15 PM [facility] Bilirubin Total 0.3 0.2 - 1.2 mg/dL 07/19/2024 5:15 PM [facility] eGFR by CKD-EPI 78(L) >=90 mL/min/1.7 3 m2 07/19/2024 5:15 PM [facility] Blood BLOOD SPECIMEN / Unknown Venipuncture / Unknown 07/19/2024 4:18 PM CLAMP OPERATOR 07/19/2024 4:51 PM CLAMP OPERATOR Ruchi Chappell MOLDING PROCESS TECHNICIAN-MITER SAW OPERATOR LAB - CHEMISTRY O RDERABLES [facility] [id number] [place] [address] * HCG BLOOD QUALITATIVE (07/19/2024 4:18 PM CLAMP OPERATOR) Only the most recent of2 resultswithin the time period is included. HCG Qual Serum Negative Negative 07/19/2024 5:11 PM CLAMP OPERATOR [facility] Blood BLOOD SPECIMEN / Unknown Venipuncture / Unknown 07/19/2024 4:18 PM CLAMP OPERATOR 07/19/2024 4:51 PM CLAMP OPERATOR Narrative [facility] - 07/19/2024 5:11 PM CLAMP OPERATOR Specimens containing human anti-mouse antibodies may exhibit false positive or false negative results. If qualitative interpretation is inconsistent with clinical evaluation, consider confirmation by an alternative hCG method. Ruchi Chappell MOLDING PROCESS TECHNICIAN-MITER SAW OPERATOR LAB - CHEMISTRY O RDERABLES [facility] [address] [place] [address] * XR CHEST 1VW PORTABLE (04/08/2024 11:51 [...] - 99 mg/dL 04/08/2024 11:50 PM CDT [facility] Sodium 138 136 - 145 mmol/L 04/08/2024 11:50 PM CDT [facility] Potassium 3.8 3.5 - 5.1 mmol/L 04/08/2024 11:50 PM CDT [facility] Chloride 107 98 - 107 mmol/L 04/08/2024 11:50 PM CDT [facility] CO2 23 22 - 29 mmol/L 04/08/2024 11:50 PM CDT [facility] Calcium 9.4 8.4 - 10.4 mg/dL 04/08/2024 11:50 PM CDT [facility] Anion Gap 8 6 - 16 mmol/L 04/08/2024 11:50 PM CDT [facility] BUN 12 5.3 - 18.7 mg/dL 04/08/2024 11:50 PM CDT [facility] Creatinine 0.84 0.57 - 1.11 mg/dL 04/08/2024 11:50 PM CDT [facility] eGFR by CKD-EPI >90 >=90 mL/min/1.7 3 m2 04/08/2024 11:50 PM CDT [facility] Blood BLOOD SPECIMEN / Unknown Venipuncture / Unknown 04/08/2024 11:21 PM CDT 04/08/2024 11:28 PM CDT Ever Potter MD LAB - CHEMISTRY SALIMA [facility] Organization Address City/State/ZIP Co de Phone Number [facility] [address] [place] [address] * MAGNESIUM BLOOD (04/08/2024 11:21 PM CDT) Only the most recent of2 resultswithin the time period is included. Magnesium 1.9 1.7 - 2.3 mg/dL 04/08/2024 11:50 PM CDT [facility] Blood BLOOD SPECIMEN / Unknown Venipuncture / Unknown 04/08/2024 11:21 PM CDT 04/08/2024 11:28 PM CDT Ever Potter MD LAB - CHEMISTRY [facility]A [facility] Organization Address City/State/ZIP Co de Phone Number [facility] [address] [place] [address] * MRI TIBIA FIBULA LEFT [...] ANTIGEN - POCT INTER (09/09/2022 11:37 AM CLAMP OPERATOR) SARS-CoV-2 Ag Negative Negative 09/09/2022 11:45 AM CLAMP OPERATOR [facility] Influenza A Antigen Negative Negative 09/09/2022 11:45 AM CLAMP OPERATOR [facility] Influenza B Antigen Positive(A) Negative 09/09/2022 11:45 AM CLAMP OPERATOR [facility] Microbiology SPECIMEN FROM NASAL FOSSAE / Unknown 09/09/2022 11:37 AM CLAMP OPERATOR 09/09/2022 11:45 AM CLAMP OPERATOR Narrative [facility] - 09/09/2022 11:45 AM CLAMP OPERATOR SARS-CoV-2 antigen testing is authorized for [...] MD LAB - POINT OF CARE ORDERABLES [facility] [address] [phone] * CT CERVICAL SPINE NON CONTRAST - [...] DATE/TIME OF EXAM: ??04/16/2022 3:40 PM, LOCATION ??[facility] INDICATION: R56.9: Unspecified convulsions ([facility]/HCC) ADDITIONAL CLINICAL INFORMATION: Ordering Provider Reason For [...] CONTRAST,DATE/TIME OF EXAM: 04/16/2022 3:40 PM, LOCATION [facility] INDICATION: R56.9: Unspecified convulsions ([facility]/HCC) ADDITIONAL CLINICAL INFORMATION: Ordering Provider Reason For [...] DATE/TIME OF EXAM: ??04/16/2022 3:40 PM, LOCATION ??[facility] INDICATION: R56.9: Unspecified convulsions ([facility]) ADDITIONAL CLINICAL INFORMATION: Ordering Provider Reason For [...] CONTRAST,DATE/TIME OF EXAM: 04/16/2022 3:40 PM, LOCATION [facility] INDICATION: R56.9: Unspecified convulsions ([facility]/HCC) ADDITIONAL CLINICAL INFORMATION: Ordering Provider Reason For [...] No cervical spine fracture > Interpreting Provider: eMgan Bee MD on 04/16/2022 4:35 PM Zakia [...] may alter the peak level. Contact the [place] [facility] at or reserved for healthcare professionals to assist you in evaluating potentially toxic acetaminophen levels. Zakia Hassan Igor RUSSELL LAB - CHEMISTRY SALIMA MOORE Performing Organization Address [facility] Co de Phone Number [facility] [address] [place], [place] [id number] * TROPONIN I (04/16/2022 2:02 PM CDT) Troponin I <0.010 <0.038 ng/mL 04/16/2022 2:37 PM CDT [facility] Blood BLOOD SPECIMEN / Unknown Venipuncture / Unknown 04/16/2022 2:02 PM CDT 04/16/2022 2:10 PM CDT Zakia Hassan Igor RUSSELL LAB - CHEMISTRY SALIMA MOORE Performing Organization Address [facility] de Phone Number [facility] [address] [place] [address] * HCG BETA BLOOD QUANTITATIVE (04/16/2022 2:02 PM CDT) hCG Quantitative <1.20 mIU/mL 04/16/20 2:56 PM CDT [facility] Blood BLOOD SPECIMEN / Unknown Venipuncture / Unknown 04/16/2022 2:02 PM CDT 04/16/2022 2:10 PM CDT Narrative [facility] - 04/16/2022 2:56 PM CDT [...] Costa PA-C LAB - CHEMISTRY SALIMA MOORE [facility] [address] [place] [address] * LACTIC ACID BLOOD (04/16/2022 2:02 PM CDT) Lactic Acid 1.76 <=2 mmol/L 04/16/2022 2:28 PM CDT [facility] Blood BLOOD SPECIMEN / Unknown Venipuncture / Unknown 04/16/2022 2:02 PM CDT 04/16/2022 2:11 PM CDT Zakia Costa PA-C LAB - CHEMISTRY SALIMA MOORE Performing Organization Address City/[facility]/ZIP Co de Phone Number [facility] [address] [place] [address] * EKG 12-LEAD (04/16/2022 1:59 PM CDT) Only the most recent of2 resultswithin the time period is included. Ventricular Rate 79 BPM [facility] Atrial Rate 79 BPM [facility] P-R Interval 104 ms [facility] QRS Duration ms 74 ms [facility] Q-T Interval ms 376 ms [facility] QTC Calculation (Bezet) 431 ms [facility] Calculated P [place] 27 degrees [facility] Calculated R [place] 54 degrees [facility] Calculated T [place] 22 degrees [facility] Interpretation EKG When compared with ECG of 21-DEC-2014 11:10,the significant change is the development of nonspecific T wave changes. ??Normal sinus rhythm persists. Confirmed by MD Veronica Jamie ([id number]) on 04/17/2022 1:28:05 PM [facility] 04/16/2022 1:59 PM CDT 04/17/2022 1:28 PM CDT Zakia Costa PA-C ECG ORDERABLES Performing Organization Address [facility]/ZIP Co de Phone Number [facility] * HCG URINE QUALITATIVE - POINT OF CARE (AMB) STL (04/14/2022) HCG Qual Urine Negative Negative HCG Urine QC NEG negative NEGATIVE - POSITIVE HCG Urine QC POS positive NEGATIVE - POSITIVE Expiration Date 2023-06-11 Lot # [id number] Urine URINE / Unknown 04/14/2022 Geno Perea MOLDING PROCESS TECHNICIAN-MITER SAW OPERATOR LAB - POINT OF CA RE ORDERABLES * HEMOGLOBIN A1C (11/05/2020 4:01 PM CDT) Hemoglobin A1c 5.2 4.2 - 5.6 % [facility] INSURANCE BILL Comment: AVERAGE GLUCOSE MG/DL BLOOD ??103 ?mg/dL The following cutoff levels are recommended by [place] [place] [employer]. A1c ??> 6.5% : [...] Resulting Agency Comment Lab Testing performed at: [facility] [address] ?? Bubba RHODES [id number] Va Olivo MD LAB - CHEMISTRY SALIMA MOORE [facility] INSURANCE BILL [address] [place] [address] * (ABNORMAL) LIPID PROFILE (11/05/2020 4:01 PM [...] Resulting Agency Comment Lab Testing performed at: [facility] [address] ?? Bubba RHOD[place] [id number] Va Olivo MD LAB - CHEMISTRY SALIMA MOORE Performing Organization Address City/[facility] de Phone Number [facility] INSURANCE BILL [address] [place] [address] * (ABNORMAL) VITAMIN D (25-HYDROXY) (02/17/2017 12:45 PM CDT) Vitamin D, 25 Hydroxy 9.59(L) 30 - 100 ng/mL 02/17/2017 5:00 PM CDT [facility] Blood BLOOD SPECIMEN / Unknown Venipuncture / Unknown 02/17/2017 12:45 PM CDT 02/17/2017 12:45 PM CDT Narrative [facility] - 02/17/2017 5:00 PM CDT Vitamin D Status: ?Deficiency ? <20 ? ng/mL ?Insufficiency ?? 20-30 ??ng/mL ?Sufficiency ? 30-100 ng/mL ?Toxicity ? >100 ?ng/mL Kaci Cheatham APRN-MITER SAW OPERATOR LAB - CHEMISTRY OR DERABLES Performing Organization Address [facility] de Phone Number [facility] [address] [place] [address] * FERRITIN (02/17/2017 12:45 PM CDT) Ferritin 40 10 - 291 ng/mL 02/17/2017 1:05 PM CDT [facility] Blood BLOOD SPECIMEN / Unknown Venipuncture / Unknown 02/17/2017 12:45 PM CDT 02/17/2017 12:45 PM CDT Kaci Cheatham MOLDING PROCESS TECHNICIAN-MITER SAW OPERATOR LAB - CHEMISTRY OR DERABLES [facility] [address] [place] [address] * (ABNORMAL) CBC W MANUAL DIFFERENTIAL (12/21/2014 10:37 AM CDT) WBC 3.6(L) 4.5 - 14.5 x10^9/L 12/21/2014 11:17 AM CDT [facility] RBC 4.89 4.00 - 5.20 x10^12/L 12/21/2014 11:17 AM CDT [facility] Hemoglobin 12.4 11.5 - 15.5 gm/dL 12/21/2014 11:17 AM CDT [facility] Hematocrit 37.3 35.0 - 45.0 % 12/21/2014 11:17 AM CDT [facility] MCV 76.3(L) 77.0 - 95.0 fl 12/21/2014 11:17 AM CDT [facility] MCH 25.4 25.0 - 33.0 pg 12/21/2014 11:17 AM CDT [facility] MCHC 33.2 31.0 - 37.0 gm/dL 12/21/2014 11:17 AM CDT [facility] RDW-CV 12.2 11.5 - 14.0 % 12/21/2014 11:17 AM CDT [facility] MPV 10.4(H) 6.0 - 9.5 fl 12/21/2014 11:17 AM CDT [facility] Platelet Count 307 100 - 400 x10^9/L 12/21/2014 11:17 AM CDT [facility] Blood BLOOD SPECIMEN / Unknown Lab Venipuncture / Unknown 12/21/2014 10:37 AM CDT 12/21/2014 11:11 AM CDT Rika Zaragoza MOLDING PROCESS TECHNICIAN-[employer] [facility] - [facility] ORDERABLES [facility] [id number] [place] [address] * (ABNORMAL) DIFFERENTIAL MANUAL (12/21/2014 10:37 AM CDT) WBC Auto 3.6(L) 4.5 - 14.5 x10^9/L 12/21/2014 12:10 PM CDT [facility] WBC Corrected 4.5 - 14.5 x10^9/L 12/21/2014 12:10 PM CDT [facility] nRBC /100 WBC 12/21/2014 12:10 PM CDT [facility] Neutrophil % Manual 29 24 - 66 % 12/21/2014 12:10 PM CDT [facility] Lymphocytes % Manual 59 22 - 61 % 12/21/2014 12:10 PM CDT [facility] Monocytes % Manual 6 3 - 15 % 12/21/2014 12:10 PM CDT [facility] Eosinophils % Manual 5 0 - 10 % 12/21/2014 12:10 PM CDT [facility] Basophils % Manual 1 % 12/21/2014 12:10 PM CDT [facility] Cells Counted 100 # cells 12/21/2014 12:10 PM CDT [facility] RBC Morphology Normal 12/21/2014 12:10 PM CDT [facility] WBC Morph Normal 12/21/2014 12:10 PM CDT [facility] Platelet Estimation Normal 12/21/2014 12:10 PM CDT [facility] Blood BLOOD SPECIMEN / Unknown Lab Venipuncture / Unknown 12/21/2014 10:37 AM CDT 12/21/2014 11:11 AM CDT Rika Zaragoza APRN-[facility] - [place] [facility] ORDERABLES Performing Organization Address [facility] de Phone Number [facility] [id number] [place] [address] * TSH (12/21/2014 10:37 AM CDT) TSH 2.14 0.358 - 3.740 uIU/mL 12/21/2014 11:40 AM CDT [facility] Blood BLOOD SPECIMEN / Unknown Lab Venipuncture / Unknown 12/21/2014 10:37 AM CDT 12/21/2014 11:11 AM CDT Rika Zaragoza MOLDING PROCESS TECHNICIAN-[employer]ITER [employer] [facility]PERATOR LAB - CHEMISTR Y ORDERABLES Performing Organization Address City/[facility] Co de Phone Number [facility] [address] [place] [address] * T4 TOTAL (12/21/2014 10:37 AM CDT) T4 Total 12.0 4.7 - 13.3 ug/dL 12/21/2014 11:46 AM CDT [facility] Blood BLOOD SPECIMEN / Unknown Lab Venipuncture / Unknown 12/21/2014 10:37 AM CDT 12/21/2014 11:11 AM CDT Rika Zaragoza MOLDING PROCESS TECHNICIAN-MITER SAW OPERATOR LAB - CHEMISTR Y ORDERABLES Performing Organization Address [facility] Co de Phone Number [facility] [address] [place] [address] * LEAD BLOOD (01/24/2009 11:50 AM CDT) Pathologist [facility] Lead Blood 3 mcg 0 - 14 ug/dl [facility] Specimen Type Venous [facility] BLOOD SPECIMEN / Unknown 01/24/2009 11:50 AM CDT Narrative [facility] - 01/30/2009 9:44 AM CDT 1 Resulting Agency Comment Performed By [facility] ? [address], [address] ? [place] [address] Hannah Barron MD LAB - CHEMISTRY ORDE RABJOHN Performing Organization Address [facility] Co de Phone Number [facility] [address] [place] [address] * HGB HCT PANEL (01/24/2009 11:50 AM CDT) Pathologist [facility] Hemoglobin 11.9 10.0 - 15.0 gm/dl [facility] Hematocrit 35.4 30.0 - 45.0 % [facility] BLOOD SPECIMEN / Unknown 01/24/2009 11:50 AM CDT Narrative [facility] - 01/24/2009 12:01 PM CDT FAX TO [phone] Hannah Barron MD LAB - HEMATOLOGY ORD ERABLES [facility] [address] [place] [address] Care Teams Grocery Clerk Marking Relationship Specialty Start Date End Date Va Olivo MD PCP - General Pediatrics 12/08/17
--- OUTSIDE RECORDS SUMMARY | 2024-07-22 19:23 | XMS_ITS | Encounter Summary ---
Author Organization [facility] Health Address [address] [facility] [place] [address] Care Team Providers Care Health Diagnostics Teacher Name Role Phone Va Olivo MD Primary Care Provider [phone] Encounter Details Date Type Department Care Team [...] st Contact Info) Description 07/27/2024 12:50 PM NAVY SEAL Appointment [facility] Health Imaging Services - Ultrasound [address] [facility] [address] [place] [address] [place] [address] [place] [address] 08/03/2024 1:00 PM NAVY SEAL Office Visit [facility] - 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 Author Yearly PCP visit Lifestyle Aster Willard, RN Note: Come into office for yearly wcc. Take recommended medication(s) Lifestyle Aster Willard, RN documented as of this encounter Visit Diagnoses Not on filedocumented in this encounter Care Teams Health Diagnostics Teacher Relationship Specialty Start Date End Date Va Olivo MD PCP - General Pediatrics 12/08/17 documented as of this encounter
--- OUTSIDE RECORDS SUMMARY | 2024-07-22 19:23 | XMS_ITS | Encounter Summary ---
Author Organization [facility] Address [address] [facility] [place] [address] Care Team Providers Care Minute Clerk For Basic Traffic Name Role Phone Va Olivo MD Primary Care Provider [phone] Reason for Visit * Reason Onset Date Comments MEDICATION REFILL 03/18/2023 Encounter Details Date Type Department Care Team (Late st Contact Info) Description 03/18/2023 Refill [facility] [address] [place] [address] Va Olivo MD [address] [facility] [phone] [place] [address] MEDICATION REFILL Social History Tobacco [...] st Contact Info) Description 07/27/2024 12:50 PM PHOTOGRAPHY INTERN Appointment [facility] Imaging Services - Ultrasound [address] [facility] [address] [place], [place] [id number] [place] [address] [place] [address] 08/03/2024 1:00 PM PHOTOGRAPHY INTERN Office Visit [facility] - PARKS AND RECREATION WORKER [address] [place] [phone] [place] [address] [place], [place] [phone] documented as of this encounter Goals Goal Patient Goal Type Associated Problems Recent Progress Patient-Stated? Author Yearly PCP visit Lifestyle Aster Willard RN Note: Come into office for yearly wcc. Take recommended medication(s) Lifestyle Aster Willard RN documented as of this encounter Visit Diagnoses Diagnosis Mild intermittent asthma without complication (HCC) Unspecified asthma documented in this encounter Care Teams Minute Clerk For Basic Traffic Relationship Specialty Start Date End Date Va Olivo MD PCP - General Pediatrics 12/08/17 documented as of this encounter
--- OUTSIDE RECORDS SUMMARY | 2024-07-22 19:23 | XMS_ITS | Encounter Summary ---
Author Organization [facility] Address [address] [place] [address] Care Team Providers Care Benefits Director Name Role Phone Va Olivo MD Primary Care Provider [phone] Reason for Visit * Reason Comments Seizure Episodes of syncope and seizure like episodes * Evaluate (Urgent) - Closed Specialty Diagnoses / Procedures Referred By Contac t Referred To Contact Diagnoses Syncope and collapse Seizure-like activity (HCC) [place] [address] [place] [address] [place] [address] [place] [address] Referral ID Status Reason Start Date Expiration Date V isits Requested Visits Authorized [id number] Closed Specialty Services Required 04/16/2022 04/16/2023 1 1 Encounter Details Date Type Department Care Team (Latest Contact Info) Description 05/19/2022 8:10 AM BLOWN FILM EXTRUSION OPERATOR - 05/19/2022 9:59 AM BLOWN FILM EXTRUSION OPERATOR Hospital Encounter [facility] - Neurology [address] [facility] [place] [address] [place] [address] [place] [address] Jhonatan Nuñez MD [address] [place] [address] Discharge Disposition: Home or Self Care Social [...] Coronavirus/COVID-19? No / Unsure 05/19/2022 9:59 AM BLOWN FILM EXTRUSION OPERATOR documented as of this encounter Last Filed Vital Signs Vital Sign Reading Time Taken Comments Blood Pressure - - Pulse - - Temperature - - Respiratory Rate - - Oxygen Saturation - - Inhaled Oxygen Concentration - - Weight 54.3 kg (119 lb 11.4 oz) 05/19/2022 8:28 AM BLOWN FILM EXTRUSION OPERATOR Height 159 cm (5' 2.6 ) 05/19/2022 8:28 AM BLOWN FILM EXTRUSION OPERATOR Body Mass Index 21.48 05/19/2022 8:28 AM BLOWN FILM EXTRUSION OPERATOR Body Mass Index Percentile 54.73% 05/19/2022 8:2 8 AM BLOWN FILM EXTRUSION OPERATOR Growth Chart: [facility] (Girls, 2- 20 Years) documented in this encounter Discharge Instructions * Patient Instructions* Jil Brito MD - 05/19/2022 9:23 AM BLOWN FILM EXTRUSION OPERATOR It was a pleasure seeing Journey today. [...] if you have any questions or concerns. N FILM EXTRUSION OPERATOR documented in this encounter Medications at Time [...] patient, Gre[facility] in the Neurology Clinic at [facility]???[facility]. She was accompanied by her Mother. Greyson [...] -0.14) based on CDC (Girls, 2-20 Years) qvjrrj-yjk-drg data using vitals from 04/16/2022 from contact [...] -0.62) based on CDC (Girls, 2-20 Years) Vegykcr-rcx-mrf data based on Stature recorded on 05/19/2022. 44 %ile (Z= -0.16) based on [facility] (Girls, 2-20 Years) vxalwr-qww-zgn data using vitals from 05/19/2022. 55 %ile [...] Jil Brit[place] MD CC: [place] [id number] [facility] / [place] [id number] Date: 05/19/2022 10:54 AM N FILM EXTRUSION OPERATOR Associated attestation - Jhonatan Nuñez MD - 05/21/2022 9:03 AM BLOWN FILM EXTRUSION OPERATOR I have seen and examined the patient [...] st Contact Info) Description 07/27/2024 12:50 PM BLOWN FILM EXTRUSION OPERATOR Appointment [facility] Imaging Services - Ultrasound [address] [facility] [address] [place], [place] [phone] [place] [address] [place], [place] [phone] 08/03/2024 1:00 PM BLOWN FILM EXTRUSION OPERATOR Office Visit [facility] - PROVIDER RELATIONS REPRESENTATIVE [address] [place] [phone] [place] [address] [place] [address] Scheduled Referrals Name Type Priority Associated [...] Primary documented in this encounter Care Teams Benefits Director Relationship Specialty Start Date End Date Va Olivo MD PCP - General Pediatrics 12/08/17 documented as of this encounter
--- OUTSIDE RECORDS SUMMARY | 2024-07-22 19:23 | XMS_ITS | Encounter Summary ---
Author Organization [facility] Address [address] [place] [address] Care Team Providers Care Washer Hand Name Role Phone Va Olivo MD Primary Care Provider [phone] Reason for Visit * Reason Comments Seizure Encounter Details Date Type Department Care Team (Late st Contact Info) Description 04/08/2024 10:48 PM CDT - 04/09/2024 1:07 AM CDT Emergency ER at [address] [address] Ever Potter MD [facility] [place] [address] Seizure-like activity (HCC) (Primary Dx); [...] non-tender Spontaneously moving all extremities Review of [facility] discharge summary dated 11/13/2023: Patient has been [...] corrected inreal time. Please contact me via Prolify message if you note any errors requiring clarification. * Bertha Bennett RN - 04/08/2024 10:49 PM CDT BIB EMS from [facility] for seizure activity. Pt hs [...] Potter MD - 04/09/2024 1:03 AM CDT [id number] Functional Neurological Symptom Disorder (Conversion Disorder) You [...] providers about all of the prescription medicines, tgqx-hyc-tyrzutx medicines, vitamins, and supplements you take. Certain [...] someone else, call or text [phone] or [phone] ([phone]) right away. You will be connected to trained counselors who are part of the 988 Suicide [employer] Crisis [employer]. An online chat choice is also available. This service is free and available 02/02. Last Reviewed Date: 2023 00:00:00 ?? [id number] The [employer]. All rights reserved. This information is not intended as a substitute for professional medical care. Always follow your healthcare professional's instructions. * Clinical References AVS - Ever Potter MD - 04/09/2024 12:01 AM CDT [id number] Functional Neurological Symptom Disorder (Conversion Disorder) You [...] providers about all of the prescription medicines, wwhh-nev-ysvxpdx medicines, vitamins, and supplements you take. Certain [...] someone else, call or text [phone] or [phone] ([phone]) right away. You will be connected to trained counselors who are part of the [employer] Suicide & Crisis Lifeline. An online chat choice is also available. This service is free and available 02/02. Last Reviewed Date: 2023 00:00:00 ?? [id number] The [employer]. All rights reserved. This information is not intended as a substitute for professional medical care. Always follow your healthcare professional's instructions. documented in this encounter Plan of Treatment Upcoming Encounters Date Type Department Care Team (Late st Contact Info) Description 07/27/2024 12:50 PM LOAD HAUL DUMP OPERATOR Appointment [facility] Health Imaging Services - Ultrasound [address] [address] [place] [address] [address] 08/03/2024 1:00 PM LOAD HAUL DUMP OPERATOR Office Visit [facility] - PRE SALES SYSTEMS ENGINEER [address] [place] [address] [place] [address] [place] [address] documented as of this encounter [...] HCG BLOOD QUALITATIVE (04/08/2024 11:21 PM CDT) [facility] HCG Qual Serum Negative Negative 04/08/2024 11:44 PM CDT [facility] Blood BLOOD SPECIMEN / Unknown Venipuncture / Unknown 04/08/2024 11:21 PM CDT 04/08/2024 11:28 PM CDT Narrative [facility] - 04/08/2024 11:44 PM CDT Specimens containing human anti-mouse antibodies may exhibit false positive or false negative results. If qualitative interpretation is inconsistent with clinical evaluation, consider confirmation by an alternative hCG method. Ever Potter MD LAB - CHEMISTRY SALIMA MOORE Performing Organization Address City/[facility] Co de Phone Number [facility] [address] [place] [address] * MAGNESIUM BLOOD (04/08/2024 11:21 PM CDT) [facility] Magnesium 1.9 1.7 - 2.3 mg/dL 04/08/2024 11:50 PM CDT [facility] Blood BLOOD SPECIMEN / Unknown Venipuncture / Unknown 04/08/2024 11:21 PM CDT 04/08/2024 11:28 PM CDT Ever Potter MD LAB - CHEMISTRY SALIMA MOORE Performing Organization Address [facility]/ZIP Co de Phone Number [facility] [address] [place], [place] [id number] * CBC W AUTO DIFFERENTIAL (04/08/2024 11:21 PM CDT) [facility] WBC 4.9 4.0 - 10.7 x10E9/L 04/08/2024 [...] - 1.00 x10E9/L 04/08/2024 11:37 PM CDT [facility] Eosinophil Absolute 0.29 0.00 - 0.60 x10E9/L 04/08/2024 11:37 PM CDT [facility] Basophil Absolute 0.06 0.00 - 0.13 x10E9/L 04/08/2024 11:37 PM CDT [facility] Blood BLOOD SPECIMEN / Unknown Venipuncture / Unknown 04/08/2024 11:21 PM CDT 04/08/2024 11:28 PM CDT Ever Potter MD LAB - HEMATOLOGY ORD ERABLES [facility] [address] [place] [address] * (ABNORMAL) BASIC METABOLIC PANEL (CALCIUM TOTAL) (04/08/2024 11:21 PM CDT) Glucose 113(H) 70 - 99 mg/dL 04/08/2024 11:50 PM CDT [facility] Sodium 138 136 - 145 mmol/L 04/08/2024 11:50 PM CDT [facility] Potassium 3.8 3.5 - 5.1 mmol/L 04/08/2024 11:50 PM CDT [facility] Chloride 107 98 - 107 mmol/L 04/08/2024 11:50 PM CDT [facility] CO2 23 22 - 29 mmol/L 04/08/2024 11:50 PM CDT [facility] Calcium 9.4 8.4 - 10.4 mg/dL 04/08/2024 11:50 PM CDT [facility] Anion Gap 8 6 - 16 mmol/L 04/08/2024 11:50 PM CDT [facility] BUN 12 5.3 - 18.7 mg/dL 04/08/2024 11:50 PM CDT [facility] Creatinine 0.84 0.57 - 1.11 mg/dL 04/08/2024 11:50 PM CDT [facility] eGFR by CKD-EPI >90 >=90 mL/min/1.7 3 m2 04/08/2024 11:50 PM CDT [facility] Blood BLOOD SPECIMEN / Unknown Venipuncture / Unknown 04/08/2024 11:21 PM CDT 04/08/2024 11:28 PM CDT Ever Potter MD LAB - CHEMISTRY SALIMA Rizzo Organization Address City/State/ZIP Co de Phone Number [facility] [address] [place] [address] documented in this encounter Visit [...] RN) documented in this encounter Care Teams Washer Hand Relationship Specialty Start Date End Date Va Olivo MD PCP - General Pediatrics 12/08/17 documented as of this encounter
--- OUTSIDE RECORDS SUMMARY | 2024-07-22 19:23 | XMS_ITS | Clinical Summary ---
Author Organization [facility] Address [address] [place] [address] Care Team Providers Care Sagger Maker Name Role Phone Va Olivo MD Primary Care Provider [phone] Source Comments [facility],non-[facility] Affiliates and Associated Physician Practices is amultiple site organization consisting of ambulatory clinics and hospital sitesin [place], [place], [place] and [place]. This disclosure is being madepursuant to the Care Everywhere program and may not contain all information available regarding this patient. Last updated 18.[facility] Allergies Active Allergy Reactions Criticality Noted Date [...] original. 11/05/21 No show letter #1 sent @[facility] ER Problem Noted Date Diagnosed Date Influenza B 09/09/2022 Assessment & Plan (09/09/2022 11:58 AM CLAY MODELER): Give albuterol prn, if increase distress call-mother [...] Department Care Team Description 07/20/2024 1:00 PM CLAY MODELER Office Visit [facility] - DEMAND PLANNER [address] [place] [id number] Jeremie Perez MD Abnormal uterine bleeding (AUB) (Primary Dx); Screen for STD (sexually transmitted disease) 07/20/2024 Travel 07/19/2024 3:34 PM CLAY MODELER - 07/19/2024 5:27 PM CLAY MODELER Emergency ER at [facility] [address] [place] [address] DUB (dysfunctional uterine bleeding) (Primary Dx) Discharge [...] Comments Blood Pressure 110/72 07/20/2024 1:23 PM CLAY MODELER Pulse 70 07/20/2024 1:23 PM CLAY MODELER Temperature 36.7 ??C (98 ??F) 07/19/2024 3:34 PM CLAY MODELER Respiratory Rate 16 07/19/2024 3:34 PM CLAY MODELER Oxygen Saturation 100% 07/20/2024 1:23 PM CLAY MODELER Inhaled Oxygen Concentration - - Weight 66.3 kg (146 lb 3.2 oz) 07/20/2024 1:23 P M CLAY MODELER Height 158.5 cm (5' 2.4 ) 07/20/2024 1:23 PM CLAY MODELER Body Mass Index 26.4 07/20/2024 1:23 PM CLAY MODELER Plan of Treatment Upcoming Encounters Date Type Department Care Team (Late st Contact Info) Description 07/27/2024 12:50 PM CLAY MODELER Appointment [facility] Imaging Services - Ultrasound [address] [id number] [place] [address] [place] [address] 08/03/2024 1:00 PM CLAY MODELER Office Visit [facility] - DEMAND PLANNER [address] [place] [address] [place] [address] [place] [address] Health Maintenance Due Date Last Done [...] wcc. Take recommended medication(s) Lifestyle Aster Willard, phytochemistry professor Procedure Name Priority Date/Time Associated Diagnosis Comments ESTRADIOL Routine 07/20/2024 2:06 PM CLAY MODELER Abnormal uterine bleeding (AUB) FSH + LH PANEL Routine 07/20/2024 2:06 PM CLAY MODELER Abnormal uterine bleeding (AUB) PROLACTIN Routine 07/20/2024 2:06 PM CLAY MODELER Abnormal uterine bleeding (AUB) IRON + TIBC + FERRITIN Routine 2:06 PM CLAY MODELER Abnormal uterine bleeding (AUB) CBC W/O DIFFERENTIAL Routine 07/20/2024 2:06 PM CLAY MODELER Abnormal uterine bleeding (AUB) TSH REFLEX FREE T4 Routine 07/20/2024 2: 06 PM CLAY MODELER Abnormal uterine bleeding (AUB) CHLAMYDIA + GC + TRICH DNA AMPL Routine 07/20/2024 12:00 AM CLAY MODELER URINALYSIS REFLEX TO MICROSCOPIC NO CULTURE STAT 07/19/2024 4:20 PM CLAY MODELER HCG BLOOD QUALITATIVE STAT 07/19/2024 4:18 PM CLAY MODELER CBC W AUTO DIFFERENTIAL STAT 07/19/2024 4:18 PM CLAY MODELER COMPREHENSIVE METABOLIC PANEL STAT 07/19/2024 4:18 PM CLAY MODELER from Last 3 Months Results * (ABNORMAL) IRON + TIBC + FERRITIN (07/20/2024 2:06 PM CLAY MODELER) TIBC 388 250 - 450 ug/dL [facility] INSURANCE BILL UIBC 349 131 - 425 ug/dL [facility] INSURANCE BILL Iron 39 27 - 159 ug/dL [facility] INSURANCE BILL Iron Saturation 10(L) 15 - 55 % [facility] INSURANCE BILL Ferritin 17 15 - 77 ng/mL [facility] INSURANCE BILL Blood BLOOD SPECIMEN / Unknown 07/20/2024 2:06 PM CLAY MODELER 07/20/2024 Narrative [facility] INSURANCE BILL - 07/21/2024 7:09 AM CLAY MODELER Performed at: ??01 - [facility] [address] ??[id number] Manager Talent Acquisition: Dillon Aguirre PhD, Phone: ??[phone] Jeremie Perez MD LAB - CHEMISTRY ORD ERABLES [facility] INSURANCE BILL [address] [place] [address] * TSH REFLEX FREE T4 (07/20/2024 2:06 PM CLAY MODELER) TSH 1.180 0.450 - 4.500 uIU/mL [facility] INSURANCE BILL Blood BLOOD SPECIMEN / Unknown 07/20/2024 2:06 PM CLAY MODELER 07/20/2024 Narrative [facility] INSURANCE BILL - 07/21/2024 8:13 AM CLAY MODELER Performed at: ??01 - [facility] [address] [place], [place] ??[id number] Manager Talent Acquisition: Dillon Aguirre PhD, Phone: ??[phone] Jeremie Perez MD LAB - CHEMISTRY [employer] Performing Organization Address [facility] de Phone Number [facility] INSURANCE BILL [address] [place] [address] * PROLACTIN (07/20/2024 2:06 PM CLAY MODELER) Prolactin 7.5 4.8 - 33.4 ng/mL [facility] INSURANCE BILL Blood BLOOD SPECIMEN / Unknown 07/20/2024 2:06 PM CLAY MODELER 07/20/2024 Narrative [facility] INSURANCE BILL - 07/21/2024 7:09 AM CLAY MODELER Performed at: ??01 - [facility] [address] [place], [place] ??[id number] Manager Talent Acquisition: Dillon Aguirre PhD, Phone: ??[phone] Jeremie Perez MD LAB - CHEMISTRY [employer] Performing Organization Address [facility] de Phone Number [facility] INSURANCE BILL [address] [place] [address] * ESTRADIOL (07/20/2024 2:06 PM CLAY MODELER) Estradiol 56.0 pg/mL [facility] INSURANCE BILL Comment: ? Adult Female ? Range ?Follicular phase ? 12.5 - 166.0 ?Ovulation phase ?85.8 - 498.0 ?Luteal phase ? 43.8 - 211.0 ?Postmenopausal ? <6.0 - ??54.7 ?1st trimester ? 215.0 - >4300.0 Akhil ECLIA methodology Blood BLOOD SPECIMEN / Unknown 07/20/2024 2:06 PM CLAY MODELER 07/20/2024 Narrative [facility] INSURANCE BILL - 07/21/2024 7:09 AM CLAY MODELER Performed at: ??01 - [facility] ??[id number] Manager Talent Acquisition: Dillon Aguirre PhD, Phone: ??[phone] Jeremie Perez MD LAB - CHEMISTRY ORD ERABLES [facility] INSURANCE BILL [address] [place] [address] * (ABNORMAL) CBC W/O DIFFERENTIAL (07/20/2024 2:06 PM CLAY MODELER) WBC 3.1(L) 3.4 - 10.8 x10E3/uL [facility] [...] BLOOD SPECIMEN / Unknown 07/20/2024 2:06 PM CLAY MODELER 07/20/2024 Narrative [facility] INSURANCE BILL - 07/21/2024 7:09 AM CLAY MODELER Performed at: ??01 - [facility] [place] [address] [place], [place] ??[id number] Manager Talent Acquisition: Dillon Aguirre PhD, Phone: ??[phone] Jeremie Perez MD LAB - HEMATOLOGY OR DERABLES [facility] INSURANCE BILL [address] [place] [address] * FSH + LH PANEL (07/20/2024 2:06 PM CLAY MODELER) LH 27.4 mIU/mL [facility] INSURANCE BILL Comment: [...] BLOOD SPECIMEN / Unknown 07/20/2024 2:06 PM CLAY MODELER 07/20/2024 Narrative [facility] INSURANCE BILL - 07/21/2024 7:09 AM CLAY MODELER Performed at: ??01 - [facility] [address] ??[id number] Manager Talent Acquisition: Dillon Aguirre PhD, Phone: ??[phone] Jeremie Perez MD LAB - CHEMISTRY ORD ERABLES Performing Organization Address [facility] de Phone Number [facility] INSURANCE BILL [address] [place] [address] * CHLAMYDIA + GC + TRICH DNA AMPL (07/20/2024 12:00 AM CLAY MODELER) Chlamydia trachomatis AUGUSTO Negative Negative [facility] ACCOUNT BILL GC DNA Probe Negative Negative [facility] ACCOUNT BILL Trichomonas vaginalis by AUGUSTO Negative Negative [facility] ACCOUNT BILL 07/20/2024 07/20/2024 Narrative [facility] ACCOUNT BILL - 07/21/2024 9:07 PM CLAY MODELER Performed at: ??01 - [facility] [address] ??[id number] Manager Talent Acquisition: Clara Crawford MD, Phone: ??[phone] Jeremie Perez MD LAB - MICROBIOLOGY ORDERABLES Performing Organization Address [facility] de Phone Number [facility] ACCOUNT BILL [address] [place] [address] * (ABNORMAL) URINALYSIS REFLEX TO MICROSCOPIC NO CULTURE (07/19/2024 4:20 PM CLAY MODELER) Color UA Yellow Yellow, Straw 07/19/2024 5:04 PM CLAY MODELER [facility] Clarity UA Clear Clear 07/19/2024 5:04 PM CLAY MODELER [facility] Glucose UA Normal Normal 07/19/2024 5:04 PM CLAY MODELER [facility] Bilirubin UA Negative Negative 07/19/2024 5:04 PM CLAY MODELER [facility] Ketone UA Negative Negative 07/19/2024 5:04 PM CLAY MODELER [facility] Specific [place] UA 1.032(H) 1.005 - 1.030 07/19/2024 5:04 PM CLAY MODELER [facility] Blood UA 3+(A) Negative 07/19/2024 5:04 PM CLAY MODELER [facility] pH UA 7.0 5.0 - 9.0 pH 07/19/2024 5:04 PM [facility] Protein UA Trace(A) Negative 07/19/2024 5:04 PM CLAY MODELER [facility] Urobilinogen UA 2.0(A) Normal mg/dL 025 5:04 PM [facility] Nitrite UA Negative Negative 07/19/2024 5:04 PM CLAY MODELER [facility] Leukocyte UA Negative Negative 07/19/2024 5:04 PM [facility] RBC UA >100(A) 0 - 5 # /hpf 07/19/2024 5:04 PM [facility] WBC UA 0-5 0 - 5 # /hpf 07/19/2024 5:04 PM CLAY MODELER [facility] Bacteria UA None Seen None Seen 07/19/2024 5:04 PM CLAY MODELER [facility] Squamous Epithelial Cells 0-2 0 - 5 /hpf 07/19/2024 5:04 PM [facility] Mucus UA 2+ /LPF 07/19/2024 5:04 PM [facility] Urine URINE SPECIMEN OBTAINED BY CLEAN CATCH PROCEDURE / Unknown Collection / Unknown 07/19/2024 4:20 PM CLAY MODELER 07/19/2024 4:51 PM CLAY MODELER Narrative [facility] - 07/19/2024 5:04 PM CLAY MODELER Ruchi Chappell APRN-PROCESS EXCELLENCE MANAGER LAB - URINALYSIS ORDERABLES [facility] [address] [place] [address] * (ABNORMAL) CBC W AUTO DIFFERENTIAL (07/19/2024 4:18 PM CLAY MODELER) WBC 2.9(L) 4.0 - 10.7 x10E9/L 07/19/2024 4:56 PM [facility] RBC Count 4.11 3.90 - 5.20 x10E12/L 07/19/2024 4:56 PM [facility] Hemoglobin 11.1(L) 11.9 - 15.8 g/dL 07/19/2024 4:56 PM [facility] Hematocrit 34.0(L) 34.8 - 46.1 % 07/19/2024 4:56 PM [facility] MCV 82.7 80.0 - 98.0 fL 07/19/2024 4:56 PM [facility] MCH 27.0 26.7 - 33.6 pg 07/19/2024 4:56 PM [facility] MCHC 32.6 31.7 - 36.3 g/dL 07/19/2024 4:56 PM [facility] RDW-CV 11.7 11.3 - 14.8 % 07/19/2024 4:56 PM [facility] Platelet Count 345 150 - 420 x10E9/L 07/19/2024 4:56 PM [facility] MPV 10.3 7.8 - 11.4 fL 07/19/2024 4:56 PM [facility] Neutrophil % 44.6 41.0 - 74.0 % 07/19/2024 4:56 PM [facility] Lymphocyte % 44.0 17.0 - 47.0 % 07/19/2024 4:56 PM [facility] Monocyte % 8.6 3.0 - 11.0 % 07/19/2024 4:56 PM [facility] Eosinophil % 1.4 0.0 - 7.0 % 07/19/2024 4:56 PM [facility] Basophil % 1.4 0.0 - 1.6 % 07/19/2024 4:56 PM [facility] Immature Granulocytes % 0.0 0.0 - 1.0 % 07/19/2024 4:56 PM [facility] Neutrophil Absolute 1.30(L) 1.60 - 7.50 x10E9/L 07/19/2024 4:56 PM [facility] Lymphocyte Absolute 1.28 1.00 - 4.40 x10E9/L 07/19/2024 4:56 PM [facility] Monocyte Absolute 0.25 0.15 - 1.00 x10E9/L 07/19/2024 4:56 PM CLAY MODELER [facility] Eosinophil Absolute 0.04 0.00 - 0.60 x10E9/L 07/19/2024 4:56 PM [facility] Basophil Absolute 0.04 0.00 - 0.13 x10E9/L 07/19/2024 4:56 PM [facility] Blood BLOOD SPECIMEN / Unknown Venipuncture / Unknown 07/19/2024 4:18 PM CLAY MODELER 07/19/2024 4:50 PM CLAY MODELER Ruchi Chappell GENERAL COUNSELOR-PROCESS EXCELLENCE MANAGER LAB - HEMATOLOGY ORDERABLES [facility] [address] [place] [address] * (ABNORMAL) COMPREHENSIVE METABOLIC PANEL (07/19/2024 4:18 PM CLAY MODELER) Glucose 93 70 - 99 mg/dL 07/19/2024 5:15 PM [facility] Sodium 139 136 - 145 mmol/L 07/19/2024 5:15 PM [facility] Potassium 5.7(H) 3.5 - 5.1 mmol/L 07/19/2024 5:15 PM [facility] Comment:Specimen is Moderate ly Hemolyzed. This potassium result may be falsely elevated. Chloride 109(H) 98 - 107 mmol/L 07/19/2024 5:15 PM [facility] CO2 20(L) 22 - 29 mmol/L 07/19/2024 5:15 PM [facility] Calcium 10.0 8.4 - 10.4 mg/dL 07/19/2024 5:15 PM [facility] Anion Gap 10 6 - 16 mmol/L 07/19/2024 5:15 PM [facility] BUN 15 5.3 - 18.7 mg/dL 07/19/2024 5:15 PM [facility] Creatinine 1.05 0.57 - 1.11 mg/dL 07/19/2024 5:15 PM [facility] Alkaline Phosphatase 68 40 - 150 U/L 07/19/2024 5:15 PM [facility] ALT 15 0 - 55 U/L 07/19/2024 5:15 PM CLAY MODELER [facility] AST 36(H) 5 - 34 U/L 07/19/2024 5:15 PM CLAY MODELER [facility] Comment:Specimen is Moderate ly Hemolyzed. This AST result may be falsely elevated. Protein Total 8.5(H) 6.4 - 8.3 gm/dL 07/19/2024 5:15 PM CLAY MODELER [facility] Comment:Specimen is Moderate ly Hemolyzed. This total protein result may be falsely elevated. Albumin 4.5 3.4 - 5.0 gm/dL 07/19/2024 5:15 PM CLAY MODELER [facility] Bilirubin Total 0.3 0.2 - 1.2 mg/dL 07/19/2024 5:15 PM CLAY MODELER [facility] eGFR by CKD-EPI 78(L) >=90 mL/min/1.7 3 m2 07/19/2024 5:15 PM CLAY MODELER [facility] Blood BLOOD SPECIMEN / Unknown Venipuncture / Unknown 07/19/2024 4:18 PM CLAY MODELER 07/19/2024 4:51 PM CLAY MODELER Ruchi Chappell APRN-[facility] LAB - CHEMISTRY O RDERABLES Performing Organization Address [facility] de Phone Number [facility] [id number] [place] [address] * HCG BLOOD QUALITATIVE (07/19/2024 4:18 PM CLAY MODELER) HCG Qual Serum Negative Negative 07/19/2024 5:11 PM CLAY MODELER [facility] Blood BLOOD SPECIMEN / Unknown Venipuncture / Unknown 07/19/2024 4:18 PM CLAY MODELER 07/19/2024 4:51 PM CLAY MODELER Narrative [facility] - 07/19/2024 5:11 PM CLAY MODELER Specimens containing human anti-mouse antibodies may exhibit false positive or false negative results. If qualitative interpretation is inconsistent with clinical evaluation, consider confirmation by an alternative hCG method. Ruchi Chappell GENERAL COUNSELOR-[facility] LAB - CHEMISTRY O RDERABLES Performing Organization Address [facility] de Phone Number [facility] [address] [place] [address] from Last 3 Months Advance Directives Documents on File Type Date Recorded Patient Communications Designer Expl anation Adv Directive/Living Will/POA 12/14/2013 2:19 PM Care Teams Sagger Maker Relationship Specialty Start Date End Date Va Olivo MD PCP - General Pediatrics 12/08/17
--- OUTSIDE RECORDS SUMMARY | 2024-07-22 19:23 | XMS_ITS | Encounter Summary ---
Author Organization [facility] Address [address] [place] [address] Care Team Providers Care Senior Sharepoint Architect Name Role Phone Va Olivo MD Primary Care Provider [phone] Encounter Details Date Type Department Care Team (Late st Contact Info) Description 04/29/2022 Orders Only [facility] [address] [place] [address] Va Olivo MD [address] [facility] [phone] [place] [address] Mild intermittent asthma without complication [...] Contact Info) Description 07/27/2024 12:50 PM MANAGER PORT Appointment [facility] Imaging Services - Ultrasound [address] [facility] [address] [place] [address] [place] [address] [place] [address] 08/03/2024 1:00 PM MANAGER PORT Office Visit [facility] - GENERATION MECHANIC HELPER [address] [place] [address] [place] [address] [place] [address] documented as of this encounter Goals Goal Patient Goal Type Associated Problems Recent Progress Patient-Stated? Author Yearly PCP visit Lifestyle No Aster Garnica, RN Note: Come into office for yearly wcc. Take recommended medication(s) Lifestyle No Aster Garnica, RN documented as of this encounter Visit Diagnoses Diagnosis Mild intermittent asthma without complication (HCC) Unspecified asthma documented in this encounter Care Teams Senior Sharepoint Architect Relationship Specialty Start Date End Date Va Olivo MD PCP - General Pediatrics 12/08/17 documented as of this encounter
--- OUTSIDE RECORDS SUMMARY | 2024-07-22 19:23 | XMS_ITS | Encounter Summary ---
Author Organization [facility] Address [address] [facility] [place] [address] Care Team Providers Care Entrance Guard Name Role Phone Va Olivo MD Primary Care Provider [phone] Encounter Details Date Type Department Care Team [...] st Contact Info) Description 07/27/2024 12:50 PM INSULATION BLANKET MAKER Appointment [facility] Imaging Services - Ultrasound [address] [place] [address] [place] [address] [place] [address] 08/03/2024 1:00 PM INSULATION BLANKET MAKER Office Visit [facility] - HOT DIE PICKER [address] [place] [phone] [place] [address] [place] [address] documented as of this encounter Goals Goal Patient Goal Type Associated Problems Recent Progress Patient-Stated? Author Yearly PCP visit Lifestyle Aster Willard, RN Note: Come into office for yearly wcc. Take recommended medication(s) Lifestyle No Aster Garnica, RN documented as of this encounter Visit Diagnoses Not on filedocumented in this encounter Care Teams Entrance Guard Relationship Specialty Start Date End Date Va Olivo MD PCP - General Pediatrics 12/08/17 documented as of this encounter
--- OUTSIDE RECORDS SUMMARY | 2024-07-22 19:24 | XMS_ITS | Encounter Summary ---
Author Organization [facility] Address [address] [facility] [address] Care Team Providers Care Eyeglass Frames Polisher Name Role Phone [facility] Pediatrics, Group Primary Care Prov ider Encounter Details Date Type Department Care Team (Latest Contact Info) Description 12/21/2014 10:36 AM CDT - 12/21/2014 11:59 PM CDT Hospital Encounter [facility] - Laboratory [address] [place] [address] Rika Zaragoza, BUILDINGS AND GROUNDS SUPERVISOR-VALET RUNNER [address] [place] [address] Discharge Disposition: Home or Self Care [...] st Contact Info) Description 07/27/2024 12:50 PM SUPERVISOR HEAVY EQUIPMENT Appointment [facility] Imaging Services - Ultrasound [address] [facility] [address] [place] [address] [place] [address] [place] [address] 08/03/2024 1:00 PM SUPERVISOR HEAVY EQUIPMENT Office Visit [facility] - BUSINESS SERVICES REPRESENTATIVE [address] [place] [phone] [place] [address] [place] [address] documented as of this encounter Procedures Procedure [...] - 14.5 x10^9/L 12/21/2014 12:10 PM CDT [facility] nRBC /100 WBC 12/21/2014 12:10 PM CDT [facility] Neutrophil % Manual 29 24 - 66 % 12/21/2014 12:10 PM CDT [facility] Lymphocytes % Manual 59 22 - 61 % 12/21/2014 12:10 PM CDT [facility] Monocytes % Manual 6 3 - 15 % 12/21/2014 12:10 PM CDT [facility] Eosinophils % Manual 5 0 - 10 % 12/21/2014 12:10 PM CDT [facility] Basophils % Manual 1 % 12/21/2014 12:10 PM CDT [facility] Cells Counted 100 # cells 12/21/2014 12:10 PM CDT [facility] RBC Morphology Normal 12/21/2014 12:10 PM CDT [facility] WBC Morph Normal 12/21/2014 12:10 PM CDT [facility] Platelet Estimation Normal 12/21/2014 12:10 PM CDT [facility] Blood BLOOD SPECIMEN / Unknown Lab Venipuncture / Unknown 12/21/2014 10:37 AM CDT 12/21/2014 11:11 AM CDT Rika Zaragoza BUILDINGS AND GROUNDS SUPERVISOR-VALET RUNNER LAB - HEMATOLO GY ORDERABLES [facility] [address] [place] [address] * T4 TOTAL (12/21/2014 10:37 AM CDT) T4 Total 12.0 4.7 - 13.3 ug/dL 12/21/2014 11:46 AM CDT [facility] Blood BLOOD SPECIMEN / Unknown Lab Venipuncture / Unknown 12/21/2014 10:37 AM CDT 12/21/2014 11:11 AM CDT Rika Zaragoza BUILDINGS AND GROUNDS SUPERVISOR-VALET RUNNER LAB - CHEMISTR Y ORDERABLES Performing Organization Address City/[facility]/ZIP Co de Phone Number [facility] [phone] [place] [address] [phone] * TSH (12/21/2014 10:37 AM CDT) TSH 2.14 0.358 - 3.740 uIU/mL 12/21/2014 11:40 AM CDT [facility] Blood BLOOD SPECIMEN / Unknown Lab Venipuncture / Unknown 12/21/2014 10:37 AM CDT 12/21/2014 11:11 AM CDT Rika Zaragoza BUILDINGS AND GROUNDS SUPERVISOR-VALET RUNNER LAB - CHEMISTR Y ORDERABLES Performing Organization Address [facility] Co de Phone Number [facility] [phone] [place] [phone] * (ABNORMAL) CBC W MANUAL DIFFERENTIAL (12/21/2014 [...] CDT 12/21/2014 11:11 AM CDT Rika Zaragoza BUILDINGS AND GROUNDS SUPERVISOR-VALET RUNNER LAB - HEMATOLO GY ORDERABLES [facility] [address] [place] [address] * (ABNORMAL) BASIC METABOLIC PANEL (CALCIUM TOTAL) (12/21/2014 10:37 AM CDT) Glucose 71(L) 74 - 106 mg/dL 12/21/2014 11:35 AM [facility] Sodium 140 136 - 145 mmol/L 12/21/2014 11:35 AM [facility] Potassium 3.9 3.5 - 5.1 mmol/L 12/21/2014 11:35 AM [facility] Chloride 106 98 - 107 mmol/L 12/21/2014 11:35 AM [facility] CO2 28 22 - 31 mmol/L 12/21/2014 11:35 AM [facility] Calcium 9.1 8.5 - 10.1 mg/dL 12/21/2014 11:35 AM [facility] Anion Gap 6 5 - 15 mmol/L 12/21/2014 11:35 AM [facility] BUN 12 7 - 21 mg/dL 12/21/2014 11:35 AM [facility] Creatinine 0.34(L) 0.50 - 1.30 mg/dL 12/21/2014 11:35 AM [facility] eGFR by MDRD mL/min/1. 73m2 12/21/2014 11:35 AM [facility] Comment:eGFR calculations ar e not performed for children under 18 years old. eGFR by MDRD mL/min/1. 73m2 12/21/2014 11:35 AM [facility] Comment:eGFR calculations ar e not performed for children under 18 years old. Blood BLOOD SPECIMEN / Unknown Lab Venipuncture / Unknown 12/21/2014 10:37 AM CDT 12/21/2014 11:11 AM CDT Rika M Nik BUILDINGS AND GROUNDS SUPERVISOR-VALET RUNNER LAB - CHEMISTR Y ORDERABLES [facility] [address] [place] [address] documented in this encounter Visit Diagnoses Diagnosis History of syncope Personal history of other specified diseases documented in this encounter Care Teams Eyeglass Frames Polisher Relationship Specialty Start Date End Date [facility] [address] [facility] [address] [place] [address] PCP - General 02/06/10 12/07/17 documented as of this encounter
--- OUTSIDE RECORDS SUMMARY | 2024-07-22 19:24 | XMS_ITS | Encounter Summary ---
Author Organization [facility] Address [address] [facility] [place] [address] Care Team Providers Care Hospice Admitting Clerk Name Role Phone Va Olivo MD Primary Care Provider [phone] Reason for Visit * Reason Comments Well Child Check Encounter Details Date Type Department Care Team (Latest Contact Info) Description 11/05/2020 2:52 PM CDT - 11/05/2020 3:54 PM CDT Hospital Encounter [facility] Pediatrics [address] , [address] [place] [address] Va Olivo MD [address] [place] [address] [phone] [place] [address] Discharge Disposition: Home or Self [...] CHILD: FIFTEEN to EIGHTEEN YEARS Child???s Name: [employer] Today???s Date: 11/05/2020 Wt Readings from Last [...] 01/24/2009 If you need to reach a chorus master after normal business hours, please call our [...] share in (or continuing to share in) grinder set up operator external. Also increase awareness about community issues and [...] note were not included. 15 year old [facility] Interval History: Greyson Kevin is a 15 [...] been: -living on the street, homeless or long term -recently released from a mcfp, correction, or long-term -known to have tuberculosis, AIDS or is immunocompromised -comes from or has visited an area known to have tuberculosis -abuses drugs or is an IV drug user -is a migrant grades 1 thru 5 teacher -or has had a positive PPD or [...] 28 %ile (Z= -0.59) based on [facility] (Girls, 2-20 Years) Wwaspts-dra-hqn data based on Stature recorded on 11/05/2020. Weight: 48 %ile (Z= -0.04) based on CDC (Girls, 2-20 Years) kpkhgl-zej-buc data using vitals from 11/05/2020. BMI: 60 [...] 01/24/2009 If you need to reach a chorus master after normal business hours, please call our [...] share in (or continuing to share in) grinder set up operator external. Also increase awareness about community issues and [...] st Contact Info) Description 07/27/2024 12:50 PM MERCHANDISING SPECIALIST Appointment [facility] Health Imaging Services - Ultrasound [address] [address] [place] [address] [place] [address] 08/03/2024 1:00 PM MERCHANDISING SPECIALIST Office Visit [facility] Health Medical Group - FUEL PILOT ENGINEER [address] [place] [address] [place] [address] [place] [address] [phone] (work) documented as of this encounter Goals [...] Resulting Agency Comment Lab Testing performed at: [facility] [address] ?? [facility] [id number] Va Olivo MD LAB - CHEMISTRY SALIMA MOORE [facility] INSURANCE BILL [address] [place] [address] * HEMOGLOBIN A1C (11/05/2020 4:01 PM CDT) Hemoglobin A1c 5.2 4.2 - 5.6 % [facility] INSURANCE BILL Comment: AVERAGE GLUCOSE MG/DL BLOOD ??103 ?mg/dL The following cutoff levels are recommended by [place] Diab etes Association. A1c ??> 6.5% : [...] Resulting Agency Comment Lab Testing performed at: [facility] [address] [place] [address] ?? [facility] [phone] Va Olivo MD LAB - CHEMISTRY SALIMA MOORE [facility] INSURANCE BILL [address] [place] [address] * (ABNORMAL) COMPREHENSIVE METABOLIC PANEL (11/05/2020 4:01 [...] Resulting Agency Comment Lab Testing performed at: [facility] [id number] [place] [address] ?? [facility] [id number] Va Olivo MD LAB - CHEMISTRY SALIMA MOORE [facility] INSURANCE BILL [address] [place] [address] documented in this encounter Visit Diagnoses Diagnosis [...] asthma documented in this encounter Care Teams Hospice Admitting Clerk Relationship Specialty Start Date End Date Va Olivo MD PCP - General Pediatrics 12/08/17 documented as of this encounter
--- OUTSIDE RECORDS SUMMARY | 2024-07-22 19:24 | XMS_ITS | Encounter Summary ---
Author Organization [facility] Address [address] [place] [address] Care Team Providers Care Research And Development Manager Name Role Phone Va Olivo MD Primary Care Provider [phone] Reason for Visit * Reason Comments SUICIDAL * Auth/Cert Specialty Diagnoses / Procedures Referred By Julia lemus Referred To Contact Referral ID Status Reason Start Date Expiration Date Visits Re quested Visits Authorized [id number] 1 1 Encounter Details Date Type Department Care Team (Late st Contact Info) Description 09/23/2018 12:16 PM CDT - 09/23/2018 3:21 PM CDT Emergency ER at [address] [address] Vanessa Thompson MD [address] [place] [address] [place] [address] Current episode of major depressive disorder [...] 09/23/2018 12: 09 PM CDT Growth Chart: [facility] (Girls, 2- 20 Years) documented in this encounter Discharge Instructions * Discharge Instructions* Vanessa Thompson MD - 09/23/2018 2:57 PM CDT Home with the father.. Routine child care counselor.Referred to [facility] as an outpatient. F/U with the PCP [...] if needed: ?? National Suicide Prevention Lifeline: (3-087-805-TALK) ?? Suicide Hotline: (3-978-BTXYDPL) ?? For a list of international numbers: https://save.org/find-help/international-resources/ Call your local emergency number (911 in the ) if: ?? Your child has done something on purpose to hurt himself or herself. ?? Your child tries to commit suicide. ?? Your child says he or she wants to commit suicide. When should I call my child's therapist or curriculum writer? ?? Your child's depression gets worse. ?? [...] your child. The above information is an educational guidance counselor only. It is not intended as medical advice for individual conditions or treatments. Talk to your doctor, nurse or pharmacist before following any medical regimen to see if it is safe and effective for you. ?? Copyright [employer] 2018 Information is for End User's use only and may not be sold, redistributed or otherwise used for commercial purposes. All illustrations and images included in CareNotes?? are the copyrighted property of [employer]. or [employer] documented in this encounter Medications at Time [...] this encounter Progress Notes * Arthur Smith APRN-COSTUME DESIGN TEACHER - 09/23/2018 2:08 PM CDT PSYCHIATRIC HISTORY & PHYSICAL Name: Jarad Kevin Admit Date: 09/23/2018 : 2005 Evaluation Date: 09/23/2018 [facility] #: [id number] Room #: 24 Attending Physician: No admitting provider for patient encounter. Identifying Data: This is a 12 year old old black female presented for evaluation of mood and behavior. Chief Complaint(s): I am stressed at school History of Present Illness: Patient presents to [facility] er with SI. Patient states that [...] discharge patient to home with resources for [facility]. Clinical Diagnosis: 1. Unspecified depressive disorder, moderate Based on the [place] Suicide Scale, Jarad Kevin's suicide risk level [...] Kevin endorse anxiety symptoms?: no Does Jarad Keivn endorse being exposed to a traumatic event?: [...] PLTCOUNT 307 - No results for input(s): STJVFDNYL4BD, LMQMAG9FP, COCAINE, ETHANOL in the last 47096 hours. Invalid input(s): XCFXVSRP9JR, ZOKDDTZM5VR, PIQ2QXXL11, WFTDZKFZCI2XX, FCWXHSGMB1SH No results for input(s): HCGQUAL, HCGURINE in the last 95134 hours. Recent Labs Component Name 12/21/14 1037 TSH 2.14 No results for input(s): RPR in the last 76739 hours. No results for input(s): COLORUA, CLARITYUA, SPECGRAVUA, PHUA, PROTEINUA, BLOODUA, LEUKOCYTEUA, NITRITEUA, GLUCOSEUA, KETONEUA, BILIRUBINUA, UROBILINUA, REDSUBUA, WBCUAAUTO, RBCUAAUTO, EPITHUAAUTO, BACTUAAUTO, YEASTUAAUTO, SPERMUAAUTO, CASTUAAUTO, CRYSUAAUTO, MUCUSUAAUTO in the last 27939 hours. No results for input(s): VPA in the last 13379 hours. No results for input(s): LITHIUM in the last 00151 hours. No results for input(s): CARBAMAZEPIN in the last 42759 hours. Drug / ETOH / Tobacco Use: [...] Provider contact with the patient: 09/23/2018 14:16 [facility] [id number] [facility] History Chief Complaint Patient presents [...] MD Call in 2 days As needed [address] [facility] [address] [place] [address] User Date/Time Vanessa Thompson MD [facility] Sep 23, 2018 2:49 PM * [...] st Contact Info) Description 07/27/2024 12:50 PM ICU MANAGER Appointment [facility] Health Imaging Services - Ultrasound [address] [facility] [address] [place] [address] [place] [address] [place] [address] 08/03/2024 1:00 PM ICU MANAGER Office Visit [facility] Medical [facility] - TYPE MAPPER [address] [place] [phone] [place] [address] [place] [address] documented as of this encounter Visit Diagnoses Diagnosis Current episode of major depressive disorder without prior episode, unspecified depression episode severity- Primary documented in this encounter Care Teams Research And Development Manager Relationship Specialty Start Date End Date Va Olivo MD PCP - General Pediatrics 12/08/17 documented as of this encounter
--- OUTSIDE RECORDS SUMMARY | 2024-07-22 19:24 | XMS_ITS | Encounter Summary ---
Author Organization [facility] Address [address] [place] [address] Care Team Providers Care Space Operations Name Role Phone Va Olivo MD Primary Care Provider [phone] Reason for Visit * Reason Onset Date Comments Results 11/06/2020 Encounter Details Date Type Department Care Team (Late st Contact Info) Description 11/06/2020 Telephone [facility] Pediatrics [address] , [address] [place] [address] Gely Mares, RN Results Social [...] st Contact Info) Description 07/27/2024 12:50 PM COUNTY AGENT Appointment [facility] Imaging Services - Ultrasound [address] [phone] [place] [address] [place] [address] 08/03/2024 1:00 PM COUNTY AGENT Office Visit [facility] Medical Group - DIPLOMA MEDICAL ASSISTANT [address] [place] [address] [place] [address] [facility] [address] [address] documented as of this encounter Goals Goal Patient Goal Type Associated Problems Recent Progress Patient-Stated? Author Yearly PCP visit Lifestyle No Aster Garnica, RN Note: Come into office for yearly wcc. Take recommended medication(s) Lifestyle No Aster Garnica RN documented as of this encounter Visit Diagnoses Not on filedocumented in this encounter Care Teams Space Operations Relationship Specialty Start Date End Date Va Olivo MD PCP - General Pediatrics 12/08/17 documented as of this encounter
--- OUTSIDE RECORDS SUMMARY | 2024-07-22 19:24 | XMS_ITS | Encounter Summary ---
Author Organization [facility] Address [address] [place] [address] Care Team Providers Care Tyre Finisher And Examiner Name Role Phone Va Olivo MD Primary Care Provider Reason for Visit * Reason Onset Date Comments Forms 02/08/2021 r/t sports physi debra Encounter Details Date Type Department Care Team (Late st Contact Info) Description 02/08/2021 Telephone [facility] Pediatrics [address] , [address] [place] [address] Gely Mares RN Forms (r/t [...] hers. Mom states she is waiting for high school assistant football coach to send what is needed and [...] st Contact Info) Description 07/27/2024 12:50 PM MORTGAGE FUNDER Appointment [facility] Imaging Services - Ultrasound [address] [address] [place] [address] [place] [address] 08/03/2024 1:00 PM MORTGAGE FUNDER Office Visit [facility] Medical Group - ACCOUNT STRATEGIST [address] [place] [phone] [place] [address] [address] documented as of this encounter Goals Goal Patient Goal Type Associated Problems Recent Progress Patient-Stated? Author Yearly PCP visit Lifestyle No Aster Garnica, RN Note: Come into office for yearly wcc. Take recommended medication(s) Lifestyle No Aster Garnica, RN documented as of this encounter Visit Diagnoses Not on filedocumented in this encounter Care Teams Tyre Finisher And Examiner Relationship Specialty Start Date End Date Va Olivo MD PCP - General Pediatrics 12/08/17 documented as of this encounter
--- OUTSIDE RECORDS SUMMARY | 2024-07-22 19:24 | XMS_ITS | Encounter Summary ---
Author Organization [facility] Address [address] [place] [address] Care Team Providers Care Restaurant Team Member Name Role Phone Va Olivo MD Primary Care Provider [phone] Reason for Visit * Reason Comments Well Women Exam Encounter Details Date Type Department Care Team (Latest Contact Info) Description 04/14/2022 1:45 PM CDT Office Visit [facility] Medical [facility] - COMMUNITY OUTREACH DIRECTOR [address] [address] Geno Perea APRN-SOLAR FIELD INSTALLATION CREW MEMBER [address] [phone] Well woman exam (Primary Dx); Screening for [...] 04/14/2022 2:0 0 PM CDT Growth Chart: [facility] (Girls, 2- 20 Years) documented in [...] vaccine: yes Social: non smoker, 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 Some vaginal discharge, no itching or irritation, no dysuria, no odor Past Medical History: Diagnosis Date ??? Anxiety disorder 2017 ??? Chlamydia 09/2021 ??? Depression 2017 ??? Gonorrhea 09/2021 ??? Mild intermittent asthma, uncomplicated ??? Seizure (CMS/HCC) happened thru out [employer] Past Surgical History: Procedure Laterality Date [...] any lesions or abnormalities. Normal Bartholin's and [place]'s. Vagina: Moist, pink rugae without any lesions. [...] st Contact Info) Description 07/27/2024 12:50 PM ADULT EDUCATION TEACHER Appointment [facility] Health Imaging Services - Ultrasound [address] [place] [address] [place] [address] [place] [address] 08/03/2024 1:00 PM ADULT EDUCATION TEACHER Office Visit [facility] - COMMUNITY OUTREACH DIRECTOR [address] [place] [phone] [place] [address] [place] [address] Scheduled Orders Name Type Priority Associated Diagnoses [...] Resulting Agency Comment [facility] [address] [facility] ??Jared FOOTE [id number] Geno Perea ENDOCRINOLOGIST-SOLAR FIELD INSTALLATION CREW MEMBER LAB - MICROBIOLOG Y ORDERABLES [facility] INSURANCE BILL [address] [place] [address] * HCG URINE QUALITATIVE - POINT OF CARE (AMB) STL (04/14/2022) HCG Qual Urine Negative Negative HCG Urine QC NEG negative NEGATIVE - POSITIVE HCG Urine QC POS positive NEGATIVE - POSITIVE Expiration Date 2023-06-11 Lot # [id number] Urine URINE / Unknown 04/14/2022 Geno Perea ENDOCRINOLOGIST-SOLAR FIELD INSTALLATION CREW MEMBER LAB - POINT OF CA RE ORDERABLES documented in this encounter Visit Diagnoses Diagnosis Well woman exam- Primary Routine general medical examination at a health care facility Screening for venereal disease Screening examination for venereal disease Primary oligomenorrhea [place] or infrequent menstruation documented in this encounter Care Teams Restaurant Team Member Relationship Specialty Start Date End Date Va Olivo MD PCP - General Pediatrics 12/08/17 documented as of this encounter
--- OUTSIDE RECORDS SUMMARY | 2024-07-22 19:24 | XMS_ITS | Encounter Summary ---
Author Organization [facility] Address [address] [facility] [place] [address] Care Team Providers Care Museum Registrar Name Role Phone Va Olivo MD Primary Care Provider [phone] Reason for Visit * Reason Comments Well Child Check Question about control Encounter Details Date Type Department Care Team (Latest Contact Info) Description 11/29/2021 10:00 AM CDT - 11/29/2021 10:52 AM T Hospital Encounter [facility] Pediatrics [address] [place] [address] Va Olivo MD [address] [place] [address] [address] [place] [address] Discharge Disposition: Home or Self [...] CHILD: FIFTEEN to EIGHTEEN YEARS Child???s Name: [employer]Team Today???s Date: 11/29/2021 Wt Readings from Last [...] 01/24/2009 If you need to reach a decorator hand after normal business hours, please call our [...] share in (or continuing to share in) hemodialysis rn. Also increase awareness about community issues and [...] note were not included. 16 year old [facility] Interval History: Greyson Kevin is a 16 year old female who is accompanied to today's visit by mom for a 16 year old checkup Parental/Patient Concerns: REferral to PT for gracia splints - working with boxing trainer with track hasn't helped Started on [...] been: -living on the street, homeless or custodial -recently released from a alf, chcf, or snf -known to have tuberculosis, AIDS or is immunocompromised -comes from or has visited an area known to have tuberculosis -abuses drugs or is an IV drug user -is a migrant low vision therapist -or has had a positive PPD or [...] -0.45) based on CDC (Girls, 2-20 Years) Aqhfwmc-kve-ykm data based on Stature recorded on 11/29/2021. Weight: 51 %ile (Z= 0.03) based on CDC (Girls, 2-20 Years) kvzmaj-ffe-bzo data using vitals from 11/29/2021. BMI: 59 %ile (Z= 0.23) based on [facility] (Girls, 2-20 Years) BMI-for-age based on BMI [...] tibial stress syndrome, unspecified laterality, initial encounter S86.895T Ailin referral to Physical Therapy 3. Poor [...] 01/24/2009 If you need to reach a decorator hand after normal business hours, please call our [...] share in (or continuing to share in) hemodialysis rn. Also increase awareness about community issues and [...] st Contact Info) Description 07/27/2024 12:50 PM DUMP TRUCK OPERATOR Appointment [facility] Health Imaging Services - Ultrasound [address] [address] [place] [address] [place] [address] 08/03/2024 1:00 PM DUMP TRUCK OPERATOR Office Visit [facility] Health Medical Group - FARM EQUIPMENT ENGINE MECHANIC [address] [place] [phone] [place] [address] [place] [address] documented as of this encounter [...] origin documented in this encounter Care Teams Museum Registrar Relationship Specialty Start Date End Date Va Olivo MD PCP - General Pediatrics 12/08/17 documented as of this encounter
--- OUTSIDE RECORDS SUMMARY | 2024-07-22 19:24 | XMS_ITS | Encounter Summary ---
Author Organization [facility] Address [address] [facility] [place] [address] Care Team Providers Care Forest Manager Name Role Phone Va Olivo MD Primary Care Provider [phone] Reason for Visit * Reason Onset Date Comments MEDICATION REFILL 04/14/2022 Encounter Details Date Type Department Care Team (Late st Contact Info) Description 04/14/2022 Telephone [facility] Pediatrics [address] [place] [address] Va Olivo MD [address] [facility] [address] [place] [address] MEDICATION REFILL Social History Tobacco [...] st Contact Info) Description 07/27/2024 12:50 PM WOOL HAT FLANGER Appointment [facility] Imaging Services - Ultrasound [address] [employer] [facility] [address] [place] [address] [place] [address] [place] [address] 08/03/2024 1:00 PM WOOL HAT FLANGER Office Visit [facility] Medical Group - SENIOR SUPPORT ANALYST [address] [place] [phone] [place] [address] [place], [place] [phone] documented as of this encounter Goals Goal Patient Goal Type Associated Problems Recent Progress Patient-Stated? Author Yearly PCP visit Lifestyle Aster Willard, RN Note: Come into office for yearly wcc. Take recommended medication(s) Lifestyle No Aster Garnica, RN documented as of this encounter Visit Diagnoses Not on filedocumented in this encounter Care Teams Forest Manager Relationship Specialty Start Date End Date Va Olivo MD PCP - General Pediatrics 12/08/17 documented as of this encounter
--- OUTSIDE RECORDS SUMMARY | 2024-07-22 19:24 | XMS_ITS | Encounter Summary ---
Author Organization [facility] Address [address] [place] [address] Care Team Providers Care Bolt Header Name Role Phone Va Olivo MD Primary Care Provider [phone] Reason for Visit * Reason Onset Date Comments Sports Physical 02/08/2021 Encounter Details Date Type Department Care Team (Late st Contact Info) Description 02/08/2021 Telephone [facility] Pediatrics [address], [address] [place] [address] Gely Mares, RN Sports Physical [...] st Contact Info) Description 07/27/2024 12:50 PM LADIES' HAT TRIMMER Appointment [facility] Imaging Services - Ultrasound [address] [facility] [address] [place] [address] [place] [address] [place] [address] 08/03/2024 1:00 PM LADIES' HAT TRIMMER Office Visit [facility] Medical Group - STEAK TENDERIZER MACHINE [address] [place] [phone] [place] [address] [place], [place] [phone] documented as of this encounter Goals Goal Patient Goal Type Associated Problems Recent Progress Patient-Stated? Author Yearly PCP visit Lifestyle Aster Willard, RN Note: Come into office for yearly wcc. Take recommended medication(s) Lifestyle No Aster Garnica, ALEXA documented as of this encounter Visit Diagnoses Not on filedocumented in this encounter Care Teams Bolt Header Relationship Specialty Start Date End Date Va Olivo MD PCP - General Pediatrics 12/08/17 documented as of this encounter
--- OUTSIDE RECORDS SUMMARY | 2024-07-22 19:24 | XMS_ITS | Encounter Summary ---
Author Organization [facility] Address [address] [place] [address] Care Team Providers Care Character Actor Name Role Phone Va Olivo MD Primary Care Provider [phone] Susan Castañeda RN Unavailable Unavailabl e Encounter Details Date Type Department Care Team (Late st Contact Info) Description 2019 Patient Outreach [facility] Pediatrics [address] [place] [address] Susan Castañeda, RN Social History Tobacco Use Types Packs/Day Years Used Date Smoking Tobacco: Never Assessed Sex and Gender Information Value Date Recorded Sex Assigned at Not on file Gender Identity Not on file Sexual Orientation Not on file documented as of this encounter Progress Notes * Susan Castañeda RN - 2019 1:42 PM CDT Chart reviewed per [facility] protocol for possible enrollment, meets criteria. Enrollment form sent to [facility], await reply. documented in this encounter Plan of Treatment Upcoming Encounters Date Type Department Care Team (Late st Contact Info) Description 07/27/2024 12:50 PM CARBONATION EQUIPMENT OPERATOR Appointment [facility] Imaging Services - Ultrasound [address] [facility] 104 [place] [address] [place] [address] [place] [phone] 08/03/2024 1:00 PM CARBONATION EQUIPMENT OPERATOR Office Visit [facility] Medical Group - SALES SPECIAL AGENT [address] [place] [address] [place] [address] [place] [phone] documented as of this encounter Visit Diagnoses Not on filedocumented in this encounter Care Teams Character Actor Relationship Specialty Start Date End Date Va Olivo MD PCP - General Pediatrics 12/08/17 Susan Castañeda, RN Registered Nurse Care Management 11/04/19 02/01/20 documented as of this encounter
--- OUTSIDE RECORDS SUMMARY | 2024-07-22 19:24 | XMS_ITS | Encounter Summary ---
Author Organization [facility] Address [address] [place] [address] Care Team Providers Care Clam Grower Name Role Phone [facility] Primary Care Prov ider Reason for Visit * Reason Onset Date Comments Follow-up 12/22/2014 Encounter Details Date Type Department Care Team (Late st Contact Info) Description 12/22/2014 Telephone [facility] Pediatrics [address], [address] [place] [address] [facility] [phone] [place] [address] [address] [place] [address] Follow-up Social History Tobacco Use [...] st Contact Info) Description 07/27/2024 12:50 PM REGISTERED RESPIRATORY THERAPIST Appointment [facility] Imaging Services - Ultrasound [address] [facility] [address] [place] [address] [place] [address] [place] [address] 08/03/2024 1:00 PM REGISTERED RESPIRATORY THERAPIST Office Visit [facility] Medical Group - CREAM GATHERER [address] [place] [phone] [place] [address] [place] [address] documented as of this encounter Visit Diagnoses Diagnosis History of syncope- Primary Personal history of other specified diseases documented in this encounter Care Teams Clam Grower Relationship Specialty Start Date End Date [facility] [address] [facility] [facility] [place] [address] PCP - General 02/06/10 12/07/17 documented as of this encounter
--- OUTSIDE RECORDS SUMMARY | 2024-07-22 19:24 | XMS_ITS | Encounter Summary ---
Author Organization [facility] Address [address] [facility] [place] [address] Care Team Providers Care Hvac Installation Technician Name Role Phone Va Olivo MD Primary Care Provider [phone] Encounter Details Date Type Department Care Team (Late st Contact Info) Description 02/21/2019 Orders Only [facility] [address], [address] [place] [address] Va Olivo MD [address] [place] [address] [phone] [place] [address] Social History Tobacco Use Types Packs/Day Years Used Date Smoking Tobacco: Never Assessed Sex and Gender Information Value Date Recorded Sex Assigned at Not on file Gender Identity Not on file Sexual Orientation Not on file documented as of this encounter Plan of Treatment Upcoming Encounters Date Type Department Care Team (Late st Contact Info) Description 07/27/2024 12:50 PM REGULATORY MANAGER Appointment [facility] Imaging Services - Ultrasound [address] [address] [place] [address] [place] [address] 08/03/2024 1:00 PM REGULATORY MANAGER Office Visit [facility] Medical [facility] - ROLL HAND [address] [place] [phone] [place] [address] [place] [address] documented as of this encounter Visit Diagnoses Not on filedocumented in this encounter Care Teams Hvac Installation Technician Relationship Specialty Start Date End Date Va Olivo MD PCP - General Pediatrics 12/08/17 documented as of this encounter
--- OUTSIDE RECORDS SUMMARY | 2024-07-22 19:24 | XMS_ITS | Encounter Summary ---
Author Organization [facility] Address [address] [facility] [place] [address] Care Team Providers Care Business Account Leader Name Role Phone [facility] Primary Care Prov ider Reason for Referral * Specialty Diagnoses / Procedures Referred By Julia lemus Referred To Contact Rika Zaragoza, ORTHOPEDIC SHOES SALESPERSON-MANAGEMENT PLANNER [address] [place] [address] Referral ID Status Reason Start Date Expiration Date Visits Re quested Visits Authorized Reason for Visit * Reason Comments Complete Physical Exam 4 yr check . Has beenwell Encounter Details Date Type Department Care Team (Late st Contact Info) Description 02/13/2010 10:00 AM CDT [facility] [address] [place] [address] Rika Zaragoza ORTHOPEDIC SHOES SALESPERSON-MANAGEMENT PLANNER [address] [place] [address] WCC (Well Child Check) (Primary [...] 6.5 ) 02/13/2010 10:3 3 AM CDT Dmrzxy-tdn-Fevziq Percentile 17.93% 10/2009 10:33 AM CDT Growth Chart: [facility] (Girls, 2- 20 Years) Body Mass Index [...] st Contact Info) Description 07/27/2024 12:50 PM LEARNING DISABILITIES RESOURCE TEACHER Appointment [facility] Imaging Services - Ultrasound [address] [address] [place] [address] [place] [address] 08/03/2024 1:00 PM LEARNING DISABILITIES RESOURCE TEACHER Office Visit [facility] Health Medical Group - FIRE OPERATIONS FORESTER [address] [place] [phone] [place] [address] [place] [address] Scheduled Referrals Name Type Priority Associated Diagnoses Order Schedule AMB REFERRAL TO OPHTHALMOLOGY Outpatient Referral Routine Decreased Vision Ordered: 02/13/2010 documented as of this encounter Visit Diagnoses Diagnosis WCC (well child check)- Primary Routine infant or child health check Rash Rash and other nonspecific skin eruption Decreased vision Unspecified visual loss documented in this encounter Care Teams Business Account Leader Relationship Specialty Start Date End Date [facility] [address] [address] PCP - General 02/06/10 12/07/17 documented as of this encounter
--- OUTSIDE RECORDS SUMMARY | 2024-07-22 19:24 | XMS_ITS | Encounter Summary ---
Author Organization [facility] Health Address [address] [facility] [place] [address] Care Team Providers Care Nurse Clinical Name Role Phone Va Olivo MD Primary Care Provider [phone] Encounter Details Date Type Department Care Team [...] st Contact Info) Description 07/27/2024 12:50 PM WINDOWS CONSULTANT Appointment [facility] Health Imaging Services - Ultrasound [address] [place] [address] [place] [address] [place] [address] 08/03/2024 1:00 PM WINDOWS CONSULTANT Office Visit [facility] - SENIOR UI SOFTWARE ENGINEER [address] [place] [phone] [place] [address] [place] [address] documented as of this encounter Goals Goal Patient Goal Type Associated Problems Recent Progress Patient-Stated? Author Yearly PCP visit Lifestyle Aster Willard, RN Note: Come into office for yearly wcc. Take recommended medication(s) Lifestyle No Aster Garnica, RN documented as of this encounter Visit Diagnoses Not on filedocumented in this encounter Care Teams Nurse Clinical Relationship Specialty Start Date End Date Va Olivo MD PCP - General Pediatrics 12/08/17 documented as of this encounter
--- OUTSIDE RECORDS SUMMARY | 2024-07-22 19:24 | XMS_ITS | Encounter Summary ---
Author Organization [facility] Address [address] [facility] [place] [address] Care Team Providers Care Managed Care Nurse Name Role Phone [facility] Primary Care Prov ider Reason for Visit * Reason Comments Complete Physical Exam 5yr Encounter Details Date Type Department Care Team (Late st Contact Info) Description 05/07/2011 3:45 PM CDT Office Visit [facility] Pediatrics [address] [place] [address] [place] [address] [facility] [place] [address] WCC (well child check) (Primary Dx) Social [...] hyperlipidemia. Social History: tobacco no pets dog care manager cna: Home with family Peer involvement: Socializes well with peers Review of Symptoms: General ROS: negative II. Physical Exam: Alert active child, vital signs stable BP 98/56 Wt 42 lb (19.051 kg) BMI 14.58 kg/m2 22.91% of growth percentile based on vjrzmyc-xen-ptn. 20.04% of growth percentile based on eqqyjc-gmm-jzt. Body mass index is 14.58 kg/(m^2). General: [...] all joints SKIN: no rashes or lesions CORROSION CONTROL ENGINEER: nl tone, symmetrical limbs, no gross deficits, [...] Gross Motor Child is able to: Copies [place]/cross Balances on 1 foot for 3-5 seconds [...] as noted. Growth normal. Development normal 1. [facility] (well child check) FLU VACCINE =>3YO PRESERVATIVE [...] Water safety/pools; Gun safety; Fire safety; Matches, spot cleaner safety; Bicycle helmet; Car seat/Airbags;Infections/poisons; Pre-kindergarten; Sun [...] st Contact Info) Description 07/27/2024 12:50 PM JUDICIAL REPORTER Appointment [facility] Health Imaging Services - Ultrasound [address] [facility] [address] [place] [address] [place] [address] [place] [address] 08/03/2024 1:00 PM JUDICIAL REPORTER Office Visit [facility] Health Medical Group - FIRE SUPPRESSION CAPTAIN [address] [place] [phone] [place] [address] [place] [address] documented as of this encounter Visit Diagnoses Diagnosis WCC (well child check)- Primary Routine or child health check documented in this encounter Care Teams Managed Care Nurse Relationship Specialty Start Date End Date [facility] [address] [facility] [address] [place] [address] PCP - General 02/06/10 12/07/17 documented as of this encounter
--- OUTSIDE RECORDS SUMMARY | 2024-07-22 19:24 | XMS_ITS | Encounter Summary ---
Author Organization [facility] Address [address] [place] [address] Care Team Providers Care Tour Operator Name Role Phone Va Olivo MD Primary Care Provider [phone] Reason for Visit * Reason Comments Sports Physical Encounter Details Date Type Department Care Team (Latest Contact Info) Description 02/17/2019 8:15 AM CDT - 02/17/2019 11:59 PM CDT Hospital Encounter [facility] [address] , [address] [place] [address] Va Olivo MD [address] [place] [address] [phone] [place] [address] Discharge Disposition: Home or Self [...] 8:4 1 AM CDT Growth Chart: [facility] (Girls, 2- 20 Years) documented in this encounter Discharge Instructions * Patient Instructions* Va Olivo MD - 02/17/2019 8:16 AM CDT Images from the original note were not included. YOUR GROWING CHILD: ELEVEN to FOURTEEN YEARS Child???s Name: [facility] Today???s Date: 02/17/2019 Wt Readings from Last 2 Encounters: 09/23/18 48.3 kg (106 lb 8 oz) (47 %, Z= -0.08)* 12/08/17 44.1 kg (97 lb 4.8 oz) (41 %, Z= -0.24)* * Growth percentiles are based on [facility] 2-20 Years data. Ht Readings from Last 2 Encounters: 09/23/18 1.549 m (5' 1 ) (22 %, Z= -0.79)* 12/08/17 1.524 m (5') (23 %, Z= -0.75)* * Growth percentiles are based on [facility] 2-20 Years data. If you need to reach a film and video editor after normal business hours, please call our [...] share in (or continuing to share in) kardex clerk. Also increase awareness about community issues [...] note were not included. [address] [facility] Interval History: Jarad Kevin is a 13 [...] been: -living on the street, homeless or care home -recently released from a retirement, detention, or fdc -known to have tuberculosis, AIDS or is immunocompromised -comes from or has visited an area known to have tuberculosis -abuses drugs or is an IV drug user -is a migrant traffic checker -or has had a positive PPD or [...] (Z= -0.43) based on CDC 2-20 Years xpwuftj-hzp-hep data using vitals from 02/17/2019. Weight: 43 %ile (Z= -0.17) based on CDC 2-20 Years sloyxd-gdl-pgl data using vitals from 02/17/2019. BMI: 50 [...] CHILD: ELEVEN to FOURTEEN YEARS Child???s Name: [facility] Today???s Date: 02/17/2019 Wt Readings from Last 2 Encounters: 09/23/18 48.3 kg (106 lb 8 oz) (47 %, Z= -0.08)* 12/08/17 44.1 kg (97 lb 4.8 oz) (41 %, Z= -0.24)* * Growth percentiles are based on [facility] 2-20 Years data. Ht Readings from Last 2 Encounters: 09/23/18 1.549 m (5' 1 ) (22 %, Z= -0.79)* 12/08/17 1.524 m (5') (23 %, Z= -0.75)* * Growth percentiles are based on [facility] 2-20 Years data. If you need to reach a film and video editor after normal business hours, please call our [...] share in (or continuing to share in) kardex clerk. Also increase awareness about community issues [...] st Contact Info) Description 07/27/2024 12:50 PM STILE RIPSAW OPERATOR Appointment [facility] Imaging Services - Ultrasound [address] [facility] [address] [place] [address] [place] [address] [address] 08/03/2024 1:00 PM STILE RIPSAW OPERATOR Office Visit [facility] Medical Group - INSURANCE SALES SUPERVISOR [address] [place] [address] [place] [address] [place] [phone] documented as of this encounter Visit Diagnoses Diagnosis Encounter for well child visit at 13 years of age- Primary Mild persistent asthma without complication (HCC) Unspecified asthma Sports physical Other general medical examination for administrative purposes documented in this encounter Care Teams Tour Operator Relationship Specialty Start Date End Date Va Olivo MD PCP - General Pediatrics 12/08/17 documented as of this encounter
--- OUTSIDE RECORDS SUMMARY | 2024-07-22 19:24 | XMS_ITS | Encounter Summary ---
Author Organization [facility] Address [address] [place] [address] Care Team Providers Care Construction Equipment Mechanic Name Role Phone Va Olivo MD Primary Care Provider [phone] Susan Castañeda RN Unavailable Unavailabl e Encounter Details Date Type Department Care Team (Late st Contact Info) Description 11/17/2019 Patient Outreach [facility] Pediatrics [address] , [address] [place] [address] Susan Castañeda, RN Social History [...] Bello , patient is enrolled in the [facility] program. Welcome letter mailed to the home. [facility] brochures, handouts on Decreasing Sugary Drinks, Inhaler Mistakes and our magnet will be mailed when available. documented in this encounter Plan of Treatment Upcoming Encounters Date Type Department Care Team (Late st Contact Info) Description 07/27/2024 12:50 PM HOG DROPPER Appointment [facility] Imaging Services - Ultrasound [address] [facility] 104 [place] [address] [place] [address] [facility] [address] [place] [address] 08/03/2024 1:00 PM HOG DROPPER Office Visit [facility] Medical Group - MIDDLE OR INTERMEDIATE SCHOOL PRINCIPAL [address] [place] [phone] [place] [address] [facility] [address] [place], [place] [phone] documented as of this encounter Visit Diagnoses Not on filedocumented in this encounter Care Teams Construction Equipment Mechanic Relationship Specialty Start Date End Date Va Olivo MD PCP - General Pediatrics 12/08/17 Susan Castañeda, RN Registered Nurse Care Management 11/04/19 02/01/20 documented as of this encounter
--- OUTSIDE RECORDS SUMMARY | 2024-07-22 19:24 | XMS_ITS | Encounter Summary ---
Author Organization [facility] Address [address] [facility] [place] [address] Care Team Providers Care Director Of Field Service Name Role Phone Va Olivo MD Primary Care Provider [phone] Aster Garnica RN Unavailable Unavailable Encounter Details Date Type Department Care Team (Late st Contact Info) Description 02/02/2020 Patient Outreach [facility] Pediatrics [address] [place] [address] Aster Garnica RN Social History [...] Patient Outreach + Patient chart reviewed per [facility] protocol [facility] diagnosis: asthma Contact type: outgoing call to Nathaly payne Condition check and education: RN spoke to mom. Introduced myself and explained [facility] program to mom. Informed mom pt due for [facility], offered to schedule appt. Mom declined. Mom would like to opt out of program. Patient discharged from the [facility] program, paperwork sent to [place] Bello , [...] (specialty clinics): none [facility] last [facility]: 02/17/2019 Future appointments/Follow-up: No future appointments. TORRES Caruso, RN [facility] Nurse Religious Ritual Slaughterer documented in this encounter Plan of Treatment Upcoming Encounters Date Type Department Care Team (Late st Contact Info) Description 07/27/2024 12:50 PM ANESTHESIOLOGIST ATTENDING Appointment [facility] Imaging Services - Ultrasound [address] [address] [place] [address] [place] [address] 08/03/2024 1:00 PM ANESTHESIOLOGIST ATTENDING Office Visit [facility] - GENERAL MAINTENANCE HELPER [address] [place] [address] [place] [address] [place] [address] documented as of this encounter Goals Goal Patient Goal Type Associated Problems Recent Progress Patient-Stated? Author Yearly PCP visit Lifestyle No Aster Garnica, RN Note: Come into office for yearly wcc. Take recommended medication(s) Lifestyle No Aster Garnica, ALXEA documented as of this encounter Visit Diagnoses Not on filedocumented in this encounter Care Teams Director Of Field Service Relationship Specialty Start Date End Date Va Olivo MD PCP - General Pediatrics 12/08/17 Aster Garnica, RN Registered Nurse Care Management 02/02/20 02/02/20 documented as of this encounter
--- OUTSIDE RECORDS SUMMARY | 2024-07-22 19:24 | XMS_ITS | Encounter Summary ---
Author Organization [facility] Address [address] [facility] [place] [address] Care Team Providers Care Midlevel Provider Name Role Phone Va Olivo MD Primary Care Provider [phone] Reason for Visit * Reason Onset Date Comments MEDICATION REFILL 02/21/2019 Encounter Details Date Type Department Care Team (Late Contact Info) Description 02/21/2019 Refill [facility] Pediatrics [address] , [address] [place], [place] [id number] Va Olivo MD [address] [facility] [address] [place] [address] MEDICATION REFILL Social History Tobacco Use Types Packs/Day Years Used Date Smoking Tobacco: Never Assessed Sex and Gender Information Value Date Recorded Sex Assigned at Not on file Gender Identity Not on file Sexual Orientation Not on file documented as of this encounter Plan of Treatment Upcoming Encounters Date Type Department Care Team (Late Contact Info) Description 07/27/2024 12:50 PM ENTERTAINER OR VARIETY ARTIST Appointment [facility] Imaging Services - Ultrasound [address] [facility] [address] [place] [address] [place] [address] [place] [address] 08/03/2024 1:00 PM ENTERTAINER OR VARIETY ARTIST Office Visit [facility] Medical Group - ASSISTANT BOILER OPERATOR [address] [place] [phone] [place] [address] [place] [address] documented as of this encounter Visit Diagnoses Diagnosis Mild persistent asthma without complication (HCC) Unspecified asthma documented in this encounter Care Teams Midlevel Provider Relationship Specialty Start Date End Date Va Olivo MD PCP - General Pediatrics 12/08/17 documented as of this encounter
--- OUTSIDE RECORDS SUMMARY | 2024-07-22 19:24 | XMS_ITS | Encounter Summary ---
Author Organization [facility] Address [address] [facility] [address] Care Team Providers Care Web Administrator Name Role Phone [facility] Primary Care Prov ider Reason for Referral * Procedure - Closed Specialty Diagnoses / Procedures Referred By Julia t Referred To Contact Cardiology Diagnoses History of syncope Procedures EKG 12-LEAD Rika Zaragoza, FORREST-TECHNICIAN CHEMICAL CLEANING [address] [facility] [address] [address] Referral ID Status Reason Start Date Expiration Date Visits Re quested Visits Authorized [id number] Closed 12/21/2014 06/19/2015 1 1 Encounter Details Date Type Department Care Team (Latest Contact Info) Description 12/21/2014 10:34 AM CDT - 12/21/2014 10:35 AM CDT Hospital Encounter [facility] [address] [place] [address] Rika Zaragoza, PERSONNEL AND PAYROLL TECHNICIAN-TECHNICIAN CHEMICAL CLEANING [address] [place] [address] Discharge Disposition: Home or Self [...] st Contact Info) Description 07/27/2024 12:50 PM GUITAR PLAYER Appointment [facility] Health Imaging Services - Ultrasound [address] [facility] [address] [place] [address] [place] [address] [place] [address] 08/03/2024 1:00 PM GUITAR PLAYER Office Visit [facility] Medical Group - ASSEMBLY LINE WORKER [address] [place] [address] [place] [address] [place] [address] documented as of this encounter [...] (Bezet) 383 ms [facility] MUSE Calculated P [place] 25 degrees [facility] MUSE Calculated R [place] 57 degrees [facility] MUSE Calculated T [place] 36 degrees [facility] MUSE Interpretation EKG * Pediatric ECG Analysis * Normal sinus rhythm Normal ECG No previous ECGs available Confirmed by MD Darryl, Jhony ([id number]) on 12/21/2014 3:52:14 PM [facility] MUSE 12/21/2014 11:1 0 AM CDT 12/21/2014 3:52 PM CDT Rika Zaragoza PERSONNEL AND PAYROLL TECHNICIAN-TECHNICIAN CHEMICAL CLEANING ECG ORDERABLES [facility] MUSE documented in this encounter Visit Diagnoses Diagnosis History of syncope Personal history of other specified diseases documented in this encounter Care Teams Web Administrator Relationship Specialty Start Date End Date [facility] [address] [address] PCP - General 02/06/10 12/07/17 documented as of this encounter
--- OUTSIDE RECORDS SUMMARY | 2024-07-22 19:24 | XMS_ITS | Encounter Summary ---
Author Organization [facility] Address [address] [facility] [place] [address] Care Team Providers Care Collar Shaper Operator Name Role Phone Va Olivo MD Primary Care Provider [phone] Encounter Details Date Type Department Care Team (Late st Contact Info) Description 04/17/2022 1:23 PM CDT - 04/17/2022 1:28 PM CDT Hospital Encounter [facility] at [address] [address] Dora Aden MD [address] [place] [address] Social History Tobacco Use Types [...] st Contact Info) Description 07/27/2024 12:50 PM SOURCING MANAGER Appointment [facility] Imaging Services - Ultrasound [address] [address] [place] [address] [place] [address] 08/03/2024 1:00 PM SOURCING MANAGER Office Visit [facility] Medical Group - RECORDS ASSOCIATE [address] [place] [phone] [place] [address] [place] [address] documented as of this encounter Goals Goal Patient Goal Type Associated Problems Recent Progress Patient-Stated? Author Yearly PCP visit Lifestyle Aster Willard, RN Note: Come into office for yearly wcc. Take recommended medication(s) Lifestyle Aster Willard RN documented as of this encounter Visit Diagnoses Diagnosis History of syncope Personal history of other specified diseases documented in this encounter Care Teams Collar Shaper Operator Relationship Specialty Start Date End Date Va Olivo MD PCP - General Pediatrics 12/08/17 documented as of this encounter
--- OUTSIDE RECORDS SUMMARY | 2024-07-22 19:24 | XMS_ITS | Encounter Summary ---
Author Organization [facility] Address [address] [facility] [place] [address] Care Team Providers Care Vamp Strap Ironer Name Role Phone [facility], [facility] Primary Care Prov ider Reason for Referral * Procedure - Closed Specialty Diagnoses / Procedures Referred By Julia lemus Referred To Contact Cardiology Diagnoses History of syncope Procedures EKG 12-LEAD Rika Zaragoza, FORREST-CNC MILL PROGRAMMER [address] [place] [address] Referral ID Status Reason Start Date Expiration Date Visits Re quested Visits Authorized [id number] Closed 12/21/2014 06/19/2015 1 1 Reason for Visit * Reason Comments Well Child Check 10 year. Has been we ll Syncope fell out on way to nurse's office after not feeling well in gym in winter, Encounter Details Date Type Department Care Team (Latest Contact Info) Description 12/21/2014 8:30 AM CDT - 12/21/2014 10:33 AM CDT Hospital Encounter [facility] Pediatrics [address] , [address] [place], [place] [phone] Rika Zaragoza APRN-CNP [address] [place] [address] Discharge Disposition: Home or Self Care Social [...] 12/21/2014 9:0 0 AM CDT Growth Chart: [facility] (Girls, 2- 20 Years) documented in this [...] presents with mother, brother today for well children's court magistrate. Chief Complaint Patient presents with ??? Well [...] recently Menstrual Hx: Menarche Not yet LMP [facility] [employer] Activity Association Preparticipation Sports/School Examination [employer] [...] the athlete (and parents/guardians). @SIGNATURE@ Rika Zaragoza APRN-CNC MILL PROGRAMMER This document has been signed electronically. No exam data present Physical Exam: Blood pressure 102/63, pulse 58, temperature 98.2 ??F, temperature source Temporal, resp. rate 22, height 1.335 m (4' 4.56 ), weight 28.395 kg (62 lb 9.6 oz). 22%ile (Z=-0.77) based on CDC 2-20 Years [id number] data using vitals from 12/21/2014. No weight [...] st Contact Info) Description 07/27/2024 12:50 PM STABLEHAND Appointment [facility] Health Imaging Services - Ultrasound [address] [place] [address] [place] [address] [place] [address] 08/03/2024 1:00 PM STABLEHAND [facility] - JAVA ENGINEER [address] [place] [phone] [place] [address] [place] [address] documented as of this encounter Results * EKG 12-LEAD (12/21/2014 11:10 AM CDT) Ventricular Rate 62 BPM [facility] Atrial Rate 62 BPM [facility] P-R Interval 106 ms [facility] QRS Duration ms 74 ms [facility] Q-T Interval ms 378 ms [facility] QTC Calculation (Bezet) 383 ms [facility] MUSE Calculated P [place] 25 degrees [facility] MUSE Calculated R [place] 57 degrees [facility] MUSE Calculated T [place] 36 degrees [facility] MUSE Interpretation EKG * Pediatric ECG Analysis * Normal sinus rhythm Normal ECG No previous ECGs available Confirmed by MD Darryl, [place] ([id number]) on 12/21/2014 3:52:14 PM [facility] MUSE 12/21/2014 11:1 0 AM CDT 12/21/2014 3:52 PM CDT Rika Zaragoza HISTORY FACULTY MEMBER-CNC MILL PROGRAMMER ECG ORDERABLES [facility] * T4 TOTAL (12/21/2014 10:37 AM CDT) Pathologist [facility] T4 Total 12.0 4.7 - 13.3 ug/dL 12/21/2014 11:46 AM CDT [facility] Blood BLOOD SPECIMEN / Unknown Lab Venipuncture / Unknown 12/21/2014 10:37 AM CDT 12/21/2014 11:11 AM CDT Rika Zaragoza HISTORY FACULTY MEMBER-CNC MILL PROGRAMMER LAB - CHEMISTR Y ORDERABLES Performing Organization Address City/[facility]/ZIP Co de Phone Number [facility] [address] [place] [address] * TSH (12/21/2014 10:37 AM CDT) TSH 2.14 0.358 - 3.740 uIU/mL 12/21/2014 11:40 AM CDT [facility] Blood BLOOD SPECIMEN / Unknown Lab Venipuncture / Unknown 12/21/2014 10:37 AM CDT 12/21/2014 11:11 AM CDT Rika Zaragoza HISTORY FACULTY MEMBER-CNC MILL PROGRAMMER LAB - CHEMISTR Y ORDERABLES Performing Organization Address [facility] Co de Phone Number [facility] [phone] [place] [address] * (ABNORMAL) CBC W MANUAL DIFFERENTIAL (12/21/2014 10:37 AM CDT) WBC 3.6(L) 4.5 - 14.5 x10^9/L 12/21/2014 11:17 AM CDT [facility] RBC 4.89 4.00 - 5.20 x10^12/L 12/21/2014 11:17 AM CDT [facility] Hemoglobin 12.4 11.5 - 15.5 gm/dL 12/21/2014 11:17 AM CDT [facility] Hematocrit 37.3 35.0 - 45.0 % 12/21/2014 11:17 AM CDT [facility] MCV 76.3(L) 77.0 - 95.0 fl 12/21/2014 11:17 AM CDT [facility] MCH 25.4 25.0 - 33.0 pg 12/21/2014 11:17 AM CDT [facility] MCHC 33.2 31.0 - 37.0 gm/dL 12/21/2014 11:17 AM CDT [facility] RDW-CV 12.2 11.5 - 14.0 % 12/21/2014 11:17 AM CDT [facility] MPV 10.4(H) 6.0 - 9.5 fl 12/21/2014 11:17 AM CDT [facility] Platelet Count 307 100 - 400 x10^9/L 12/21/2014 11:17 AM T [facility] Blood BLOOD SPECIMEN / Unknown Lab Venipuncture / Unknown 12/21/2014 10:37 AM CDT 12/21/2014 11:11 AM CDT Rika Zaragoza HISTORY FACULTY MEMBER-CNC MILL PROGRAMMER LAB - HEMATOLO GY ORDERABLES [facility] [address] [place] [address] * (ABNORMAL) BASIC METABOLIC PANEL (CALCIUM TOTAL) (12/21/2014 10:37 AM CDT) Glucose 71(L) 74 - 106 mg/dL 12/21/2014 11:35 AM [facility] Sodium 140 136 - 145 mmol/L 12/21/2014 11:35 AM [facility] Potassium 3.9 3.5 - 5.1 mmol/L 12/21/2014 11:35 AM [facility] Chloride 106 98 - 107 mmol/L 12/21/2014 11:35 AM [facility] CO2 28 22 - 31 mmol/L 12/21/2014 11:35 AM [facility] Calcium 9.1 8.5 - 10.1 mg/dL 12/21/2014 11:35 AM [facility] Anion Gap 6 5 - 15 mmol/L 12/21/2014 11:35 AM [facility] BUN 12 7 - 21 mg/dL 12/21/2014 11:35 AM [facility] Creatinine 0.34(L) 0.50 - 1.30 mg/dL 12/21/2014 11:35 AM [facility] eGFR by MDRD mL/min/1. 73m2 12/21/2014 11:35 AM [facility] Comment:eGFR calculations ar e not performed for children under 18 years old. eGFR by MDRD mL/min/1. 73m2 12/21/2014 11:35 AM [facility] Comment:eGFR calculations ar e not performed for children under 18 years old. Blood BLOOD SPECIMEN / Unknown Lab Venipuncture / Unknown 12/21/2014 10:37 AM CDT 12/21/2014 11:11 AM CDT Rika Zaragoza HISTORY FACULTY MEMBER-CNC MILL PROGRAMMER LAB - CHEMISTR Y ORDERABLES [facility] [address] [place] [address] documented in this encounter Visit Diagnoses Diagnosis Examination of eyes and vision History of syncope Personal history of other specified diseases History of asthma Personal history of other diseases of respiratory system Other examination of ears and hearing Syncope and collapse Unspecified asthma(493.90) ([facility]) Unspecified asthma documented in this encounter Care Teams Vamp Strap Ironer Relationship Specialty Start Date End Date [facility] [address] [facility] [address] [place] [address] PCP - General 02/06/10 12/07/17 documented as of this encounter
--- OUTSIDE RECORDS SUMMARY | 2024-07-22 19:24 | XMS_ITS | Encounter Summary ---
Author Organization [facility] Address [address] [facility] [place] [address] Care Team Providers Care Elementary Reading Tutor Name Role Phone [facility] Primary Care Prov ider Reason for Visit * Reason Comments Well Child Check Encounter Details Date Type Department Care Team (Latest Contact Info) Description 12/14/2013 2:19 PM CDT - 12/14/2013 11:59 PM CDT Hospital Encounter [facility] Pediatrics [address], [address] [place] [address] Bob Goodwin MD RETIRED Discharge [...] 12/14/2013 2:3 1 PM CDT Growth Chart: [facility] (Girls, 2- 20 Years) [...] st Contact Info) Description 07/27/2024 12:50 PM CHILD DEVELOPMENT PROFESSOR Appointment [facility] Imaging Services - Ultrasound [address] [facility] [address] [place], [place] [phone] [place] [address] [place] [address] 08/03/2024 1:00 PM CHILD DEVELOPMENT PROFESSOR Office Visit [facility] Medical Group - CONSIGNEE [address] [place] [phone] [place] [address] [place] [address] documented as of this encounter Visit Diagnoses Diagnosis Examination of eyes and vision Other examination of ears and hearing Asthma (HCC) Refraction error Unspecified disorder of refraction and accommodation documented in this encounter Care Teams Elementary Reading Tutor Relationship Specialty Start Date End Date [facility] [address] [facility] [address] [place], [place] [phone] PCP - General 02/06/10 12/07/17 documented as of this encounter
--- OUTSIDE RECORDS SUMMARY | 2024-07-22 19:24 | XMS_ITS | Encounter Summary ---
Author Organization [facility] Address [address] [place] [address] Care Team Providers Care Administrative Professional Name Role Phone Va Olivo MD Primary Care Provider [phone] Susan Castañeda RN Unavailable Unavailabl e Encounter Details Date Type Department Care Team (Late st Contact Info) Description 12/23/2019 Patient Outreach [facility] [address] , [address] [place] [address] Susan Castañeda, RN Social History [...] Patient Outreach + Patient chart reviewed per [facility] protocol [facility] diagnosis:asthma . Contact type:phone call . Condition check and education:I called to speak to mom regarding Greyson's enrollment in [facility]. The only number we have for mom [...] by (specialty clinics): none [facility]:02-17-19 . Future appointments/Follow-up: No future appointments. Susan Castañeda pulley man [facility] Nurse Automotive Specialty Technician documented in this encounter Plan of Treatment Upcoming Encounters Date Type Department Care Team (Late st Contact Info) Description 07/27/2024 12:50 PM RECYCLING DIRECTOR Appointment [facility] Imaging Services - Ultrasound [address] [address] [place] [address] [place], [place] [address] 08/03/2024 1:00 PM RECYCLING DIRECTOR Office Visit [facility] Health Medical Group - RETURNS SUPERVISOR [address] [place] [phone] [place] [address] [place] [id number] documented as of this encounter Visit Diagnoses Not on filedocumented in this encounter Care Teams Administrative Professional Relationship Specialty Start Date End Date Va Olivo MD PCP - General Pediatrics 12/08/17 Susan Castañeda, RN Registered Nurse Care Management 11/04/19 02/01/20 documented as of this encounter
--- OUTSIDE RECORDS SUMMARY | 2024-07-22 19:24 | XMS_ITS | Encounter Summary ---
Author Organization [facility] Address [address] [facility] [place] [address] Care Team Providers Care Flavoring Maker Name Role Phone Va Olivo MD Primary Care Provider [phone] Reason for Visit * Reason Onset Date Comments MEDICATION REFILL 04/14/2022 Encounter Details Date Type Department Care Team (Late st Contact Info) Description 04/14/[address] [facility] Pediatrics [address] , [address] [place] [address] Va Olivo MD [address] [facility] [phone] [place] [address] MEDICATION REFILL Social History Tobacco [...] st Contact Info) Description 07/27/2024 12:50 PM VACUUM DRIER TENDER Appointment [facility] Imaging Services - Ultrasound [address] [facility] [address] [place] [address] [place] [address] [place] [address] 08/03/2024 1:00 PM VACUUM DRIER TENDER Office Visit [facility] Medical Group - OUTER DIAMETER GRINDER [address] [place] [phone] [place] [address] [place], [place] [address] documented as of this encounter Goals Goal Patient Goal Type Associated Problems Recent Progress Patient-Stated? Author Yearly PCP visit Lifestyle Aster Willard RN Note: Come into office for yearly wcc. Take recommended medication(s) Lifestyle No Aster Garnica RN documented as of this encounter Visit Diagnoses Diagnosis Mild intermittent asthma without complication (HCC) Unspecified asthma documented in this encounter Care Teams Flavoring Maker Relationship Specialty Start Date End Date Va Olivo MD PCP - General Pediatrics 12/08/17 documented as of this encounter
--- OUTSIDE RECORDS SUMMARY | 2024-07-22 19:24 | XMS_ITS | Encounter Summary ---
Author Organization [facility] Address [address] [facility] [place] [address] Care Team Providers Care Bootmaker Name Role Phone Va Olivo MD Primary Care Provider [phone] Reason for Referral * Evaluate (Urgent) - Closed Specialty Diagnoses / Procedures Referred By Contac t Referred To Contact Diagnoses Syncope and collapse Seizure-like activity (HCC) [place] [address] [place] [address] [place] [address] [place] [address] Referral ID Status Reason Start Date Expiration Date V isits Requested Visits Authorized [id number] Closed Specialty Services Required 04/16/2022 04/16/2023 1 1 Reason for Visit * Reason Comments Altered mental status Encounter Details Date Type Department Care Team (Late st Contact Info) Description 04/16/2022 1:27 PM CDT - 04/16/2022 5:11 PM CDT Emergency ER at [facility] [address] [place], [place] [phone] [place] [address] [facility] EMERGENC[facility] DEPT [place], [place] [phone] Syncope and collapse; Seizure-like activity (HCC); Neck [...] 04/16/2022 1:2 5 PM CDT Growth Chart: [facility] (Girls, 2- 20 Years) documented in [...] - 04/16/2022 3:22 PM CDT Greyson Kevin [id number] [facility] History Chief Complaint Patient [...] uncomplicated ??? Seizure (CMS/HCC) happened thru out [employer] Past Surgical History: Procedure Laterality Date [...] this time in minimally cooperative patient. Per medical front desk specialist RN, patient was initially responding and answering [...] uncomplicated ??? Seizure (CMS/HCC) happened thru out [employer] Past Surgical History: Procedure Laterality Date [...] answer questions, somewhat follows some commands, equal peer tutor strength. No seizure-like activity noted. Psych: Normal [...] Simpson MD - 04/16/2022 4:42 PM CDT [id number] Recurrent Seizure (Child) Your child has had [...] a seizure Last Reviewed Date: 2021 ?? [id number] [employer]. All rights reserved. This information is not intended as a substitute for professional medical care. Always follow your healthcare professional's instructions. documented in this encounter Plan of Treatment Upcoming Encounters Date Type Department Care Team (Late st Contact Info) Description 07/27/2024 12:50 PM RETAIL INVENTORY CONTROL CLERK Appointment [facility] Imaging Services - Ultrasound [address] [place] [address] [place] [address] [place] [address] 08/03/2024 1:00 PM RETAIL INVENTORY CONTROL CLERK Office Visit [facility] Group - SYSTEM VALIDATION ENGINEER [address] [place] [address] [place] [address] [place] [address] Scheduled Referrals Name Type Priority [...] DATE/TIME OF EXAM: ??04/16/2022 3:40 PM, LOCATION ??[facility] INDICATION: R56.9: Unspecified convulsions ([facility]) ADDITIONAL CLINICAL INFORMATION: Ordering Provider Reason For [...] CONTRAST,DATE/TIME OF EXAM: 04/16/2022 3:40 PM, LOCATION [facility] INDICATION: R56.9: Unspecified convulsions (CMS/HCC) ADDITIONAL CLINICAL [...] DATE/TIME OF EXAM: ??04/16/2022 3:40 PM, LOCATION ??[facility] INDICATION: R56.9: Unspecified convulsions ([facility]/HCC) ADDITIONAL CLINICAL INFORMATION: Ordering Provider Reason [...] CONTRAST,DATE/TIME OF EXAM: 04/16/2022 3:40 PM, LOCATION [facility] INDICATION: R56.9: Unspecified convulsions ([facility]) ADDITIONAL CLINICAL INFORMATION: Ordering Provider Reason For [...] - 30.0 ug/mL 04/16/2022 2:35 PM CDT [facility] Ethanol <10.0 <10 mg/dL 04/16/2022 2:35 PM CDT [facility] Salicylate <5.0(L) 15.0 - 30.0 mg/dL 04/16/2022 2:35 PM CDT [facility] Blood BLOOD SPECIMEN / Unknown Venipuncture / Unknown 04/16/2022 2:02 PM CDT 04/16/2022 2:10 PM CDT Narrative [facility] - 04/16/2022 2:35 PM CDT [...] CHEMISTRY SALIMA MOORE [facility] [address] [place] [address] * (ABNORMAL) PROLACTIN (04/16/2022 2:02 PM CDT) Prolactin 30.56(H) 5.18 - 26.53 ng/mL 04/16/2022 2:58 PM CDT [facility] Blood BLOOD SPECIMEN / Unknown Venipuncture / Unknown 04/16/2022 2:02 PM CDT 04/16/2022 2:10 PM CDT Zakia Hassan Igor RUSSELL LAB - CHEMISTRY ORDEliza MOORE Performing Organization Address [facility] Co de Phone Number [facility] [address] [place] [address] * LACTIC ACID BLOOD (04/16/2022 2:02 PM CDT) Lactic Acid 1.76 <=2 mmol/L 04/16/2022 2:28 PM CDT [facility] Blood BLOOD SPECIMEN / Unknown Venipuncture / Unknown 04/16/2022 2:02 PM CDT 04/16/2022 2:11 PM CDT Zakia Hassan Igor RUSSELL LAB - CHEMISTRY SALIMA MOORE Performing Organization Address [facility] de Phone Number [facility] [address] [place] [address] * TROPONIN I (04/16/2022 2:02 PM CDT) Troponin I <0.010 <0.038 ng/mL 04/16/2022 2:37 PM CDT [facility] Blood BLOOD SPECIMEN / Unknown Venipuncture / Unknown 04/16/2022 2:02 PM CDT 04/16/2022 2:10 PM CDT Zakia Mo Igor RUSSELL LAB - CHEMISTRY SALIMA MOORE Performing Organization Address [facility] Co de Phone Number [facility] [phone] [place] [address] * MAGNESIUM BLOOD (04/16/2022 2:02 PM CDT) Magnesium 1.9 1.7 - 2.3 mg/dL 04/16/2022 2:32 PM CDT [facility] Blood BLOOD SPECIMEN / Unknown Venipuncture / Unknown 04/16/2022 2:02 PM CDT 04/16/2022 2:10 PM CDT Zakia Hassan Igor RUSSELL LAB - CHEMISTRY SALIMA MOORE [facility] [address] [place] [address] * HCG BETA BLOOD QUANTITATIVE (04/16/2022 2:02 PM CDT) hCG Quantitative <1.20 mIU/mL 04/16/20 2:56 PM CDT [facility] Blood [...] LAB - CHEMISTRY SALIMA MOORE [facility] [address] [place] [address] * (ABNORMAL) CBC W AUTO [...] Costa PA-C LAB - HEMATOLOGY ORD ERABLES [facility] [address] [place] [address] * COMPREHENSIVE METABOLIC PANEL (04/16/2022 [...] - 34 U/L 04/16/2022 2:32 PM CDT [facility] Protein Total 7.3 6.4 - 8.3 gm/dL 04/16/2022 2:32 PM CDT [facility] Albumin 4.3 3.4 - 5.0 gm/dL 04/16/2022 2:32 PM CDT [facility] Bilirubin Total 0.3 0.2 - 1.2 mg/dL 04/16/2022 2:32 PM CDT [facility] eGFR by CKD-EPI 2:32 PM CDT [facility] Comment:eGFR calculations ar e not performed for children <18yrs old. Blood BLOOD SPECIMEN / Unknown Venipuncture / Unknown 04/16/2022 2:02 PM CDT 04/16/2022 2:10 PM CDT Zakia Costa PA-C LAB - CHEMISTRY SALIMA MOORE Performing Organization Address City/[facility]/ZIP Co de Phone Number [facility] [address] [place] [address] * EKG 12-LEAD (04/16/2022 1:59 PM CDT) Ventricular Rate 79 BPM [facility] Atrial Rate 79 BPM [facility] P-R Interval 104 ms [facility] QRS Duration ms 74 ms [facility] Q-T Interval ms 376 ms [facility] QTC Calculation (Bezet) 431 ms [facility] Calculated P [place] 27 degrees [facility] Calculated R [place] 54 degrees [facility] Calculated T [place] 22 degrees [facility] Interpretation EKG When compared with ECG of 21-DEC-2014 11:10,the significant change is the development of nonspecific T wave changes. ??Normal sinus rhythm persists. Confirmed by MD Veronica Jamie ([id number]) on 04/17/2022 1:28:05 PM [facility] 04/16/2022 1:59 PM CDT 04/17/2022 1:28 PM CDT Zakia Costa PA-C ECG ORDERABLES Performing Organization Address [facility] Co de Phone Number [facility] documented in this encounter Visit [...] (Due) documented in this encounter Care Teams Bootmaker Relationship Specialty Start Date End Date Va Olivo MD PCP - General Pediatrics 12/08/17 documented as of this encounter
--- OUTSIDE RECORDS SUMMARY | 2024-07-22 19:24 | XMS_ITS | Encounter Summary ---
Author Organization [facility] Address [address] [facility] [place] [place] [address] Care Team Providers Care Child Life Specialist Name Role Phone Va Olivo MD Primary Care Provider [phone] Encounter Details Date Type Department Care Team (Late st Contact Info) Description 02/15/2020 Patient Outreach [facility] Pediatrics [address] [place] [address] Susan Castañeda, RN Social History [...] Bello patient has been discharged from the [facility] program. May be re-enrolled at a later time provided they meet criteria. documented in this encounter Plan of Treatment Upcoming Encounters Date Type Department Care Team (Late st Contact Info) Description 07/27/2024 12:50 PM SPACER TYPE BAR AND SEGMENT Appointment [facility] Imaging Services - Ultrasound [address] [facility] [address] [place] [address] [place] [address] [facility] [address] [place], [place] [phone] 08/03/2024 1:00 PM SPACER TYPE BAR AND SEGMENT Office Visit [facility] - AEROSPACE ENGINEER OFFICER [address] [place] [phone] [place] [address] [facility] [address] [place], [place] [phone] documented as of this encounter Goals Goal Patient Goal Type Associated Problems Recent Progress Patient-Stated? Author Yearly PCP visit Lifestyle Aster Willard, RN Note: Come into office for yearly wcc. Take recommended medication(s) Lifestyle No Aster Garnica, RN documented as of this encounter Visit Diagnoses Not on filedocumented in this encounter Care Teams Child Life Specialist Relationship Specialty Start Date End Date Va Olivo MD PCP - General Pediatrics 12/08/17 documented as of this encounter
--- OUTSIDE RECORDS SUMMARY | 2024-07-22 19:24 | XMS_ITS | Encounter Summary ---
Author Organization [facility] Address [address] [facility] [place] [address] Care Team Providers Care Log Roper Name Role Phone Va Olivo MD Primary Care Provider [phone] Reason for Visit * Reason Comments 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 Problem bilateral queen s plints Encounter Details Date Type Department Care Team (Latest Contact Info) Description 12/08/2017 1:35 PM CDT - 12/08/2017 11:59 PM T Hospital Encounter [facility] Pediatrics [address] [place] [address] Va Olivo MD [address] [place] [address] [phone] [place] [address] Discharge Disposition: Home or Self [...] 12/08/2017 1:4 4 PM CDT Growth Chart: [facility] [...] st Contact Info) Description 07/27/2024 12:50 PM TESTER ARMATURE OR FIELDS Appointment [facility] Imaging Services - Ultrasound [address] [facility] [address] [place] [address] [place] [address] [facility] [address] [place] [address] 08/03/2024 1:00 PM TESTER ARMATURE OR FIELDS Office Visit [facility] - WATER TREATMENT SPECIALIST [address] [place] [phone] [place] [address] [facility] [address] [place] [address] documented as of this encounter Visit Diagnoses Diagnosis Queen splints, initial encounter- Primary Other injury of other muscle(s) and tendon(s) at lower leg level, left leg, initial encounter Other injury of other muscle(s) and tendon(s) at lower leg level, right leg, initial encounter Activity involving running Activities involving running documented in this encounter Care Teams Log Roper Relationship Specialty Start Date End Date Va Olivo MD PCP - General Pediatrics 12/08/17 documented as of this encounter
--- OUTSIDE RECORDS SUMMARY | 2024-07-22 19:24 | XMS_ITS | Encounter Summary ---
Author Organization [facility] Address [address] [facility] [place] [address] Care Team Providers Care Gm Name Role Phone Va Olivo MD Primary Care Provider [phone] Reason for Visit * Reason Onset Date Comments Forms 02/21/2021 Physical form re parmjit for picker box operator. Encounter Details Date Type Department Care Team (Late st Contact Info) Description 02/21/2021 Telephone [facility]s [address] [place] [address] Shadia Shafer RN Forms (Physical form ready for picker box operator.) Social History Tobacco Use Types Packs/Day Years [...] that the physical form is ready for picker box operator. I also scanned the form into the chart. Shadia MACDONALD RN documented in this encounter Plan of Treatment Upcoming Encounters Date Type Department Care Team (Late st Contact Info) Description 07/27/2024 12:50 PM FIRE CONTROL OFFICER Appointment [facility] Imaging Services - Ultrasound [address] [facility] [address] [place], [place] [phone] [place] [address] [place], [place] [phone] 08/03/2024 1:00 PM FIRE CONTROL OFFICER Office Visit [facility] - TANKERMAN [address] [place] [phone] [place] [address] [facility] [address] [place] [address] documented as of this encounter Goals Goal Patient Goal Type Associated Problems Recent Progress Patient-Stated? Author Yearly PCP visit Lifestyle No Aster Garnica, RN Note: Come into office for yearly wcc. Take recommended medication(s) Lifestyle No Aster Garnica, RN documented as of this encounter Visit Diagnoses Not on filedocumented in this encounter Care Teams Gm Relationship Specialty Start Date End Date Va Olivo MD PCP - General Pediatrics 12/08/17 documented as of this encounter
--- OUTSIDE RECORDS SUMMARY | 2024-07-22 19:24 | XMS_ITS | Encounter Summary ---
Author Organization [facility] Address [address] [facility] [place] [address] Care Team Providers Care Shucker Name Role Phone [facility] Primary Care [facility] ider Reason for Visit * Reason Comments Refill Request Encounter Details Date Type Department Care Team (Late st Contact Info) Description 02/18/2017 Refill [facility] [address] [place] [address] [place] [address] [facility] [address] [place] [address] Refill Request Social History Tobacco Use Types Packs/Day Years Used Date Smoking Tobacco: Never Assessed Sex and Gender Information Value Date Recorded Sex Assigned at Not on file Gender Identity Not on file Sexual Orientation Not on file documented as of this encounter Plan of Treatment Upcoming Encounters Date Type Department Care Team (Late Contact Info) Description 07/27/2024 12:50 PM PACKAGING DESIGNER Appointment [facility] Imaging Services - Ultrasound [address] [facility] [address] [place] [address] [place] [address] [place] [address] 08/03/2024 1:00 PM PACKAGING DESIGNER Office Visit [facility] Medical [facility] - TURF GROWER [address] [place] [phone] [place] [address] [place] [address] documented as of this encounter Visit Diagnoses Not on filedocumented in this encounter Care Teams Shucker Relationship Specialty Start Date End Date [facility], Group [address] [facility] [address] [place] [address] PCP - General 02/06/10 12/07/17 documented as of this encounter
--- OUTSIDE RECORDS SUMMARY | 2024-07-22 19:24 | XMS_ITS | Encounter Summary ---
Author Organization [facility] Address [address] [facility] [place] [address] Care Team Providers Care Law Enforcement Director Name Role Phone [facility], [facility] Primary Care Prov ider Reason for Visit * Reason Comments Well Child Check Encounter Details Date Type Department Care Team (Latest Contact Info) Description 02/17/2017 10:00 AM CDT - 02/17/2017 12:44 PM T [address] Encounter [facility]s [address], [address] [place] [address] Kaci Cheatham, FORREST-VENKATESH [address] [place] [address] Discharge Disposition: Home or Self [...] Discharge Instructions * Patient Instructions* Kaci Cheatham, PASSENGER FLAGMAN-HYDROMETER TESTER - 02/17/2017 11:36 AM CDT Images from the original note were not included. YOUR GROWING CHILD: ELEVEN to FOURTEEN YEARS Child???s Name: QSecure Today???s Date: 02/17/2017 Wt Readings from Last 1 Encounters: 02/17/17 37.7 kg (83 lb 2 oz) (25 %, Z= -0.67)* * Growth percentiles are based on [facility] 2-20 Years data. Ht Readings from Last 1 Encounters: 02/17/17 1.48 m (4' 10.27 ) (24 %, Z= -0.71)* * Growth percentiles are based on [facility] 2-20 Years data. Lab results: We will [...] share in (or continuing to share in) transit mechanic. Also increase awareness about community issues [...] (Z= -0.67) based on CDC 2-20 Years qhevif-snf-blv data using vitals from 02/17/2017. 24 %ile (Z= -0.71) based on CDC 2-20 Years mmmmzpq-ecf-zhm data using vitals from 02/17/2017. Body mass [...] all joints SKIN: no rashes or lesions NATURE PHOTOGRAPHER: nl tone, symmetrical limbs, no gross deficits [...] st Contact Info) Description 07/27/2024 12:50 PM SHIP PURSER Appointment [facility] Health Imaging Services - Ultrasound [address] [facility] [address] [facility] [address] [place] [address] [place] [address] [place] [address] 08/03/2024 1:00 PM SHIP PURSER Office Visit [facility] - SALES ENGINEERING MANAGER [address] [place] [address] [place] [address] [address] documented as of this encounter Results * FERRITIN (02/17/2017 12:45 PM CDT) [facility] Ferritin 40 10 - 291 ng/mL 02/17/2017 1:05 PM CDT [facility] Blood BLOOD SPECIMEN / Unknown Venipuncture / Unknown 02/17/2017 12:45 PM CDT 02/17/2017 12:45 PM CDT Kaci Cheatham APRN-HYDROMETER TESTER LAB - CHEMISTRY OR DERABLES Performing Organization Address [facility] de Phone Number [facility] [address] [place] [address] * (ABNORMAL) VITAMIN D (25-HYDROXY) (02/17/2017 12:45 PM CDT) [facility] Vitamin D, 25 Hydroxy 9.59(L) 30 - 100 ng/mL 02/17/2017 5:00 PM CDT [facility] Blood BLOOD SPECIMEN / Unknown Venipuncture / Unknown 02/17/2017 12:45 PM CDT 02/17/2017 12:45 PM CDT Narrative [facility] - 02/17/2017 5:00 PM CDT Vitamin D Status: ?Deficiency ? <20 ? ng/mL ?Insufficiency ?? 20-30 ??ng/mL ?Sufficiency ? 30-100 ng/mL ?Toxicity ? >100 ?ng/mL Kaci Cheatham PASSENGER FLAGMAN-HYDROMETER TESTER LAB - CHEMISTRY OR DERABLES Performing Organization Address [facility] de Phone Number [facility] [address] [place] [address] documented in this encounter Visit Diagnoses Diagnosis [...] check documented in this encounter Care Teams Law Enforcement Director Relationship Specialty Start Date End Date [facility] [address] [place] [address] PCP - General 02/06/10 12/07/17 documented as of this encounter
--- OUTSIDE RECORDS SUMMARY | 2024-07-22 19:24 | XMS_ITS | Encounter Summary ---
Author Organization [facility] Address [address] [facility] [place] [place] [address] Care Team Providers Care Columnist/Commentator Name Role Phone Hannah Barron MD Primary Care Provider [phone] Encounter Details Date Type Department Care Team (Latest Contact Info) Description 01/24/2009 11:36 AM CDT - 01/24/2009 11:59 PM CDT Hospital Encounter [facility] [address] [place] [address] [place] [address] [place] [address] Laboratory Discharge Disposition: Home or [...] st Contact Info) Description 07/27/2024 12:50 PM GAS REGULATOR REPAIRER Appointment [facility] Health Imaging Services - Ultrasound [address] [place] [address] [place] [address] [place] [address] 08/03/2024 1:00 PM GAS REGULATOR REPAIRER Office Visit [facility] - SPINNER OPERATOR [address] [place] [phone] [place] [address] [place] [address] documented as of this encounter [...] CDT 1 Resulting Agency Comment Performed By [facility] ? [address], [address] ? [place] [address] Hannah Barron MD LAB - CHEMISTRY SALIMA MOORE [facility] [address] [place] [address] * HGB HCT PANEL (01/24/2009 11:50 AM CDT) Hemoglobin 11.9 10.0 - 15.0 gm/dl [facility] Hematocrit 35.4 30.0 - 45.0 % [facility] BLOOD SPECIMEN / Unknown 01/24/2009 11:50 AM CDT Narrative [facility] - 01/24/2009 12:01 PM CDT FAX TO [phone] Hannah Barron MD LAB - HEMATOLOGY ORD ERABLES [facility] [address] [place] [address] documented in this encounter Visit Diagnoses Diagnosis Routine or child health check documented in this encounter Care Teams Columnist/Commentator Relationship Specialty Start [place] [address] [place] [address] PCP - General 01/24/09 02/05/10 documented as of this encounter
--- OUTSIDE RECORDS SUMMARY | 2024-07-22 19:24 | XMS_ITS | Encounter Summary ---
Author Organization [facility] Address [address] [place] [address] Care Team Providers Care Diesel Engineer Name Role Phone [facility] Primary Care [facility] ider Reason for Visit * Reason Onset Date Comments Follow-up 12/21/2014 Encounter Details Date Type Department Care Team (Late st Contact Info) Description 12/21/2014 Telephone [facility] Pediatrics [address] [place] [address] Rika Zaragoza APRN-CNP [address] [place] [address] Follow-up Social History Tobacco Use [...] Contact Info) Description 07/27/2024 12:50 PM LEGAL MANAGER Appointment [facility] Imaging Services - Ultrasound [address] [facility] [address] [place] [address] [place] [address] [place] [address] 08/03/2024 1:00 PM LEGAL MANAGER Office Visit [facility] - SPECTROGRAPH OPERATOR [address] [place] [phone] [place] [address] [place] [address] documented as of this encounter Visit Diagnoses Not on filedocumented in this encounter Care Teams Diesel Engineer Relationship Specialty Start Date End Date [facility], [facility] [address] [facility] [address] [place] [address] PCP - General 02/06/10 12/07/17 documented as of this encounter
--- OUTSIDE RECORDS SUMMARY | 2024-07-22 19:24 | XMS_ITS | Encounter Summary ---
Author Organization [facility] Address [address] [facility] [place] [address] Care Team Providers Care Oracle Database Developer Name Role Phone [facility] Primary Care [facility] ider Reason for Visit * Reason Onset Date Comments MEDICATION REFILL 03/30/2017 Encounter Details Date Type Department Care Team (Late st Contact Info) Description 03/30/2017 Refill [facility] [address], [address] [place] [address] [place] [address] [address] [phone] MEDICATION REFILL Social History Tobacco [...] st Contact Info) Description 07/27/2024 12:50 PM COVER CUTTER MACHINE Appointment [facility] Imaging Services - Ultrasound [address] [facility] [address] [place] [address] [place] [address] [place], [place] [id number] 08/03/2024 1:00 PM COVER CUTTER MACHINE Office Visit [facility] - LIFE ENRICHMENT DIRECTOR [address] [place] [phone] [place] [address] [place] [address] documented as of this encounter Visit Diagnoses Not on filedocumented in this encounter Care Teams Oracle Database Developer Relationship Specialty Start Date End Date [facility] [address] [facility] [address] [place] [address] PCP - General 02/06/10 12/07/17 documented as of this encounter
--- OUTSIDE RECORDS SUMMARY | 2024-07-22 19:24 | XMS_ITS | Encounter Summary ---
Author Organization [facility] Address [address] [facility] [place] [address] Care Team Providers Care District Operations Manager Name Role Phone [facility] Primary Care Prov ider Reason for Visit * Reason Comments Well Child Check Encounter Details Date Type Department Care Team (Latest Contact Info) Description 02/01/2016 2:00 PM CDT - 02/01/2016 11:59 PM T Hospital Encounter [facility] [address], [address] [place] [address] [place] [address] [facility] [address] [place] [address] Discharge Disposition: Home or Self [...] 02/01/2016 2:3 5 PM CDT Growth Chart: [facility] (Girls, 2- 20 Years) documented in [...] time alone or with friends. ?? 2015 [employer]. Information is for End User's use only and may not be sold, redistributed or otherwise used for commercial purposes. All illustrations and images included in CareNotes?? are the copyrighted property of [employer]. or [employer]. The above information is an computer aided design technician only. It is not intended as medical [...] Hong MD - 02/01/2016 2:50 PM CDT [employer] [employer] Preparticipation Sports/School Examination Journie [...] 12%ile (Z=-1.18) based on CDC 2-20 Years zdbuarx-hvg-oim data using vitals from 02/01/2016. 18%ile (Z=-0.90) based on CDC 2-20 Years ozequy-pzl-vjz data using vitals from 02/01/2016. Body mass [...] Z00.129 2. Need for vaccination Z23 Tdap (zlntyju-nwsvlmlydi-bvbvv pertussis) (BOOSTRIX) (7y+) injection 0.5 mL ninevalent [...] Recommendations: Orders Placed This Encounter ??? Tdap (xhzhtom-whcbtceumf-fajjs pertussis) (BOOSTRIX) (7y+) injection 0.5 mL Sig: [...] st Contact Info) Description 07/27/2024 12:50 PM BUNKER WORKER Appointment [facility] Imaging Services - Ultrasound [address] [facility] [address] [place] [address] [place] [address] [place] [address] 08/03/2024 1:00 PM BUNKER WORKER Office Visit [facility] - SAP SECURITY CONSULTANT [address] [place] [phone] [place] [address] [place] [address] documented as of this encounter [...] vision documented in this encounter Care Teams District Operations Manager Relationship Specialty Start Date End Date [facility] [address] [place] [address] PCP - General 02/06/10 12/07/17 documented as of this encounter
--- OUTSIDE RECORDS SUMMARY | 2024-07-22 19:24 | XMS_ITS | Encounter Summary ---
Author Organization [facility] Address [address] [facility] [place] [address] Care Team Providers Care Volunteer Services Director Name Role Phone [facility] Primary Care Prov ider Encounter Details Date Type Department Care Team (Latest Contact Info) Description 02/17/2017 12:45 PM CDT - 02/17/2017 11:59 PM CDT Hospital Encounter [facility] - Laboratory [address] [place] [address] Kaci Cheatham, ANTENNA MACHINE OPERATOR-TOBACCO WAREHOUSE AGENT [address] [facility] [address] [place] [address] Discharge Disposition: Home or Self [...] st Contact Info) Description 07/27/2024 12:50 PM WALLPAPER HANGER Appointment [facility] Imaging Services - Ultrasound [address] [address] [place] [address] [place] [address] 08/03/2024 1:00 PM WALLPAPER HANGER Office Visit [facility] - MAKE UP OPERATOR HELPER [address] [place] [phone] [place] [address] [place] [address] documented as of this encounter Procedures Procedure [...] CDT 02/17/2017 12:45 PM CDT Kaci Cheatham APRN-TOBACCO WAREHOUSE AGENT LAB - CHEMISTRY OR DERABLES Performing Organization Address [facility] Co de Phone Number [facility] [address] [place] [address] * (ABNORMAL) VITAMIN D (25-HYDROXY) (02/17/2017 12:45 PM CDT) Vitamin D, 25 Hydroxy 9.59(L) 30 - 100 ng/mL 02/17/2017 5:00 PM CDT [facility] Blood BLOOD SPECIMEN / Unknown Venipuncture / Unknown 02/17/2017 12:45 PM CDT 02/17/2017 12:45 PM CDT Narrative [facility] - 02/17/2017 5:00 PM CDT Vitamin D Status: ?Deficiency ? <20 ? ng/mL ?Insufficiency ?? 20-30 ??ng/mL ?Sufficiency ? 30-100 ng/mL ?Toxicity ? >100 ?ng/mL Kaci Cheatham APRN-TOBACCO WAREHOUSE AGENT LAB - CHEMISTRY OR DERABLES Performing Organization Address [facility] Co de Phone Number [facility] [address] [place] [address] documented in this encounter Visit Diagnoses Diagnosis Encounter for routine and child vision and hearing testing Routine or child health check documented in this encounter Care Teams Volunteer Services Director Relationship Specialty Start Date End Date [facility] [address] [facility] [address] [place] [address] PCP - General 02/06/10 12/07/17 documented as of this encounter
--- OUTSIDE RECORDS SUMMARY | 2024-07-22 19:25 | XMS_ITS | Continuity of Care Document ---
Author Organization [facility] Address [address] [place] [address] Phone Care Team Providers Care E/M Engineer Name Role Phone Cosme Vail DMD Unavailable [...] Diagnoses Date Provider Providers Copied on Encounter [facility] , [address], [place], [place], [id number], tel:[phone] [facility] Dental caries, unspecified 4 Genna Aguiar. [address], [place], [place], [address] , . tel:[phone] Referring Provider: Cosme Vail, [address], [place], [address] . tel:[phone] [facility] , [address], [place], [place], [address], tel:[phone] [facility] Encounter for dental exam and cleaning w abnormal findings 3 Keiry Dao. [address], [place], [place], [address] . tel:[phone] [facility] , [address], [place], [place], [address], tel:[phone] [facility] Encounter for dental exam and cleaning w abnormal findingsChronic gingivitis, plaque induced 3 Keiry Dao. [address], [place], [place], [id number] . tel: [phone] [facility] , [address], [place], [place], [address], tel:[phone] [facility] Encounter for dental exam and cleaning w abnormal findings Maurice-3 0 2 Amandeep Randall. [address], [place], [place], [address] . tel: [phone] [facility] , [address], [place], [place], [address], [place] tel:[phone] [facility] Encounter for dental exam and cleaning w abnormal findings 1 Amandeep Randall. [address], [place], [place], [address] . tel: [phone] [facility] , [address], [place], [place], [address], tel:[phone] [facility] [place] Encounter for dental exam and cleaning w abnormal findings 1 Amandeep Randall. [address], [place], [place], [address] . tel: [phone] [facility] , [address], [place], [place], [address], tel:[phone] [facility] Encounter for dental exam and cleaning w abnormal findings 1 Amandeep Bridges [address], [place], [place], [address] . tel:[phone] Family History Family Member Type Diagnosis Age At Onset No Information Payers Payer name Insurance type Covered republican ID Joantanna yvette(s) Maryam [facility] Community Plan MCAID [id number] Social History Type Description Quantity Date Captured [...]
== END 2024-07-15 08:49 | disposition left against medical advice (07) ==
LOC: ANHED 08:41
DX: N93.8 Other specified abnormal uterine and vaginal bleeding (principal)
CPT/HCPCS: 99199

== ENCOUNTER 2024-07-15 16:45 | Emergency (ER) | payer MEDICAID, SELFPAY ==
[2024-07-15 16:53] VITALS: BP 135/78; PULSE 73; RESP 16; TEMP 36.3; O2SAT 100
--- NOTE | 2024-07-15 17:48 | ED_ITS ---
HPI - Female Genitourinary General Chief complaint: Vaginal Bleeding <Lynette Musa PA-C - Last Filed: 07/15/24 17:52> Stated complaint: heavy vaginal bleeding and abd. pain <YVONNE Dickey Last Filed: 07/15/24 17:52> Time Seen by Provider: 07/15/24 21:28 <YVONNE Dickey Last Filed: 07/15/24 17:52> Focused HPI: 18 y/o F presents to the emergency department for vaginal bleeding. Patient states she has been bleeding consistently for 3 weeks. She was evaluated in our emergency department a few days ago and was sent home with OBGYN follow-up. States she contacted OBGYN to schedule an appointment and they did not have an appointment for couple of weeks. While talking to the nurse at the OBGYN office she was advised to come to the ED due to the amount of vaginal bleeding. She states over the past week she has had to change her pad several times within an hour after saturating her pad. She also states she has passed very large clots. She reports lower abdominal cramping. Denies concern for . She is sexually active with 1 partner is requesting STD testing but denies vaginal discharge her symptoms of STD. She denies fever, lightheadedness, syncope, chest pain, shortness of breath. Denies known bleeding dyscrasias. GENERAL: Well-appearing, well-nourished, and in no acute distress. HEAD: Normocephalic, atraumatic. CHEST: Clear to auscultation. ?No respiratory distress. HEART: Regular rate and rhythm.? NEURO: ?Alert and oriented x3. Patient screened in triage and initial orders placed.? ?Additional care and disposition to be based upon?diagnostic testing and treatment. <YVONNE Dickey Last Filed: 07/15/24 17:52> Related Data Allergies/Adverse reactions: Allergies Allergy/AdvReac Type Severity Reaction Status Date / Time No Known Allergies Allergy Verified 07/11/24 02:37 <YVONNE Dickey Last Filed: 07/15/24 17:52> Review of Systems 2 Review of Systems: CONSTITUTIONAL: Denies fever GASTROINTESTINAL: Denies abdominal pain, nausea, vomiting GENITOURINARY: Denies dysuria <Aster Cho PA-C - Last Filed: 07/16/24 00:57> All systems reviewed & are unremarkable except as noted in HPI and below < Aster Cho PA-C - Last Filed: 07/16/24 00:57> PMFSH Past Medical History Medical History: Medical History (Updated 07/15/24 @ 23:37 by Aster Cho PA-C) No active medical problems <Lynette Musa PA-C - Last Filed: 07/15/24 17:52> Social History Social History: Social History (Updated 07/15/24 @ 23:37 by Aster Cho PA-C) Substance use: never <Lynette uMsa PA-C - Last Filed: 07/15/24 17:52> Exam 2 Narrative: GENERAL: Well-appearing, well-nourished, and in no acute distress. HEAD: Normocephalic, atraumatic. EYES: EOMI. CHEST: Clear to auscultation. No respiratory distress. No wheezes rales or rhonchi HEART: Regular rate and rhythm. No murmur heard. Normal peripheral pulses. ABDOMEN: Soft, nontender, nondistended, normal active bowel sounds. EXTREMITIES: Normal range of motion. No edema. SKIN: Warm, dry, no rash. NEURO: No focal deficits. Alert and oriented x3. PSYCH: Normal mood and affect PELVIC: Normal external genitalia. Normal appearing cervix. Small amount of dark red blood in the vaginal vault <Aster Cho PA-C - Last Filed: 07/16/24 00:57> Course Course Emergency Course: patient updated on her workup and agrees with plan of care <Aster Cho PA-C - Last Filed: 07/16/24 00:57> Vital Signs Vital signs: Vital Signs Temperature 97.4 F L 07/15/24 16:53 Pulse Rate 73 07/15/24 16:53 Respiratory Rate 16 07/15/24 16:53 Blood Pressure 135/78 07/15/24 16:53 Pulse Oximetry 100 07/15/24 16:53 Temperature 97.4 F L 07/15/24 16:53 Pulse Rate 73 01/03/25 16:53 Respiratory Rate 16 07/15/24 16:53 Blood Pressure 135/78 07/15/24 16:53 Pulse Oximetry 100 07/15/24 16:53 <Lynette Musa PA-C - Last Filed: 07/15/24 17:52> Vital Signs Temperature 97.4 F L 07/15/24 16:53 Pulse Rate 73 07/15/24 16:53 Respiratory Rate 16 07/15/24 16:53 Blood Pressure 135/78 07/15/24 16:53 Pulse Oximetry 100 07/15/24 16:53 Temperature 97.4 F L 07/15/24 16:53 Pulse Rate 73 07/15/24 16:53 Respiratory Rate 16 07/15/24 16:53 Blood Pressure 135/78 07/15/24 16:53 Pulse Oximetry 100 07/15/24 16:53 <Aster Cho PA-C - Last Filed: 07/16/24 00:57> MDM - Female Genitourinary MDM Narrative Medical decision making narrative: patient presents to the emergency department for abnormal uterine bleeding. reports she has been on her current menstrual cycle for several weeks. Reports her periods have always been irregular. She is evaluated in the ER for this already once. Instructed to follow-up with gynecology. She has not seen them yet. She is not currently on control. Her vitals are stable. Hemoglobin is normal. No concerning amount of bleeding noted on exam. Once again instructed to have close follow-up with gynecology. She was given warnings to return to the ER <Aster Cho PA-C - Last Filed: 07/16/24 00:57> Differential Diagnosis Differential diagnosis: Likely trichomoniasis, dysmenorrhea and other (Chlamydia, gonorrhea, dysfunctional uterine bleeding) <YVONNE Rodríguez Last Filed: 07/16/24 00:57> Lab Data Attestation: I reviewed the patient's lab results. <YVONNE Rodríguez Last Filed: 07/16/24 00:57> Result diagrams: 07/15/24 20:34 07/15/24 20:34 <Lynette Musa PA-C - Last Filed: 07/15/24 17:52> Labs: Lab Results 07/15/24 07/15/24 07/15/24 Range/Units 20:33 20:34 22:11 WBC 3.8 L (4.5-10.0) K/mm3 RBC 4.47 (4.2-5.4) M/mm3 Hgb 12.1 (12.0-15.0) g/dL Hct 37.6 (37.0-47.0) % MCV 84.1 (80-100) fl MCH 27.1 (26-34) pg MCHC 32.2 (32-36) g/dl RDW 11.8 (11.5-14.5) % Plt Count 377 H (150-375) k/mm3 MPV 10.5 H (7.4-10.4) fl Immature Gran % (Auto) 0.0 (0-0.5) % Neut % (Auto) 45.7 (45.5-73.1) % Lymph % (Auto) 40.5 (18.3-44.2) % [place] % (Auto) 9.3 H (2.6-8.5) % Eos % (Auto) 3.2 (0-4.4) % Baso % (Auto) 1.3 H (0.2-1.2) % Lymph # (Auto) 1.53 (0.9-3.2) K/mm3 [place] # (Auto) 0.4 (0.1-0.6) K/mm3 Eos # (Auto) 0.1 (0-0.3) K/mm3 Baso # (Auto) 0.1 (0.0-0.1) K/mm3 Abs Immat Gran (auto) 0.00 (0.00-0.031) K/mm3 Absolute Neuts (auto) 1.7 (1.3-6.7) K/mm3 Absolute Nucleated RBC 0.000 (0.0-0.012) K/mm3 Nucleated RBC % 0.0 (0.0-0.2) % PT 13.1 (11.1-14.7) Seconds INR 0.9 APTT 25.8 (22.3-36.8) Seconds Sodium 137 (134-143) mmol/L Potassium 4.1 (3.4-5.0) mmol/L Chloride 106 (98-107) mmol/L Carbon Dioxide 27 (22-30) mmol/L Anion Gap 4 (4-12) mmol/L BUN 16 (8-21) mg/dL Creatinine 0.90 (0.7-1.0) mg/dL Estim Creat Clear Calc 70 ml/min Estimated GFR > 60 (59 - ) Glucose 103 (65-110) mg/dL Calcium 9.8 (8.9-10.7) mg/dL Total Bilirubin 0.7 (0.2-1.3) mg/dL AST 32 (14-36) U/L ALT 20 (6-35) U/L Alkaline Phosphatase 82 (45-116) U/L Total Protein 9.0 H (6.3-8.6) g/dL Albumin 5.1 (3.7-5.6) g/dL Beta HCG, Quant < 2.39 mIU/ML Urine Color Yellow (Yellow) Urine Appearance Turbid H (Clear) Urine pH 8.0 (5.0-9.0) Ur Specific [place] 1.026 (1.001-1.035) Urine Protein Trace (Negative) mg/dL Urine Glucose (UA) Negative (Negative) mg/dL Urine Ketones Negative (Negative) mg/dL Ur Blood (Man) 3+ H (Negative) Urine Nitrate Negative (Negative) Urine Bilirubin Negative (Negative) Urine Urobilinogen 1.0 (<2.0) mg/dL Leukocyte Esterase Rfl Negative (Negative) BEA/UL Urine RBC 11-20 H (0-2) /hpf Urine WBC 0-5 (0-3) /hpf Ur Squamous Epith Cells None seen (Few) /hpf Urine Bacteria None seen /hpf Urine Casts 0-2 C. trachomatis (PCR) Not detected (NOT DETECTE) N. gonorrhoeae (PCR) Not detected (NOT DETECTE) T. vaginalis (PCR) Not detected (NOT DETECTE) <Lynette Musa PA-C - Last Filed: 07/15/24 17:52> Lab Results 07/15/24 07/15/24 07/15/24 Range/Units 20:33 20:34 22:11 WBC 3.8 L (4.5-10.0) K/mm3 RBC 4.47 (4.2-5.4) M/mm3 Hgb 12.1 (12.0-15.0) g/dL Hct 37.6 (37.0-47.0) % MCV 84.1 (80-100) fl MCH 27.1 (26-34) pg MCHC 32.2 (32-36) g/dl RDW 11.8 (11.5-14.5) % Plt Count 377 H (150-375) k/mm3 MPV 10.5 H (7.4-10.4) fl Immature Gran % (Auto) 0.0 (0-0.5) % Neut % (Auto) 45.7 (45.5-73.1) % Lymph % (Auto) 40.5 (18.3-44.2) % [place] % (Auto) 9.3 H (2.6-8.5) % Eos % (Auto) 3.2 (0-4.4) % Baso % (Auto) 1.3 H (0.2-1.2) % Lymph # (Auto) 1.53 (0.9-3.2) K/mm3 [place] # (Auto) 0.4 (0.1-0.6) K/mm3 Eos # (Auto) 0.1 (0-0.3) K/mm3 Baso # (Auto) 0.1 (0.0-0.1) K/mm3 Abs Immat Gran (auto) 0.00 (0.00-0.031) K/mm3 Absolute Neuts (auto) 1.7 (1.3-6.7) K/mm3 Absolute Nucleated RBC 0.000 (0.0-0.012) K/mm3 Nucleated RBC % 0.0 (0.0-0.2) % PT 13.1 (11.1-14.7) Seconds INR 0.9 APTT 25.8 (22.3-36.8) Seconds Sodium 137 (134-143) mmol/L Potassium 4.1 (3.4-5.0) mmol/L Chloride 106 (98-107) mmol/L Carbon Dioxide 27 (22-30) mmol/L Anion Gap 4 (4-12) mmol/L BUN 16 (8-21) mg/dL Creatinine 0.90 (0.7-1.0) mg/dL Estim Creat Clear Calc 70 ml/min Estimated GFR > 60 (59 - ) Glucose 103 (65-110) mg/dL Calcium 9.8 (8.9-10.7) mg/dL Total Bilirubin 0.7 (0.2-1.3) mg/dL AST 32 (14-36) U/L ALT 20 (6-35) U/L Alkaline Phosphatase 82 (45-116) U/L Total Protein 9.0 H (6.3-8.6) g/dL Albumin 5.1 (3.7-5.6) g/dL Beta HCG, Quant < 2.39 mIU/ML Urine Color Yellow (Yellow) Urine Appearance Turbid H (Clear) Urine pH 8.0 (5.0-9.0) Ur Specific [place] 1.026 (1.001-1.035) Urine Protein Trace (Negative) mg/dL Urine Glucose (UA) Negative (Negative) mg/dL Urine Ketones Negative (Negative) mg/dL Ur Blood (Man) 3+ H (Negative) Urine Nitrate Negative (Negative) Urine Bilirubin Negative (Negative) Urine Urobilinogen 1.0 (<2.0) mg/dL Leukocyte Esterase Rfl Negative (Negative) BEA/UL Urine RBC 11-20 H (0-2) /hpf Urine WBC 0-5 (0-3) /hpf Ur Squamous Epith Cells None seen (Few) /hpf Urine Bacteria None seen /hpf Urine Casts 0-2 C. trachomatis (PCR) Not detected (NOT DETECTE) N. gonorrhoeae (PCR) Not detected (NOT DETECTE) T. vaginalis (PCR) Not detected (NOT DETECTE) <Aster Cho PA-C - Last Filed: 07/16/24 00:57> Critical Care Time Critical Care Time Critical Care Time: No <Aster Cho PA-C - Last Filed: 07/16/24 00:57> Discharge Plan Discharge Clinical Impression: Dysfunctional uterine bleeding <Lynette Musa PA-C - Last Filed: 07/15/24 17:52> Patient Disposition: Home, Self-Care <Lynette Musa PA-C - Last Filed: 07/15/24 17:52> Condition: Stable <YVONNE Dickey Last Filed: 07/15/24 17:52> Instructions: Abnormal (Dysfunctional) Uterine Bleeding (ED) <Lynette Musa PA-C - Last Filed: 07/15/24 17:52> Additional Instructions: Return to the ER if you experience fever, abdominal pain with nausea and vomiting, you are soaking through a pad/hour, pain or burning with urination, you pass out, or any other symptoms that are concerning to you Remain well hydrated Your chlamydia, gonorrhea and trichomonas tests were negative. Your hemoglobin is normal Follow up with gynecology <Lynette Musa PA-C - Last Filed: 07/15/24 17:52> Patient Language: Czech <Lynette uMsa PA-C - Last Filed: 07/15/24 17:52> Follow-up/Referrals: Mahin Ngo MD [Physician] - PHYSICIAN,[facility] [Primary Care Provider] - <Lynette Musa PA-C - Last Filed: 07/15/24 17:52>
[2024-07-15 20:42] LABS: Basophils Absolute Auto 0.1 K/mm3 (0.0-0.1); Basophils Percent Auto 1.3 % (0.2-1.2); Eosinophils Absolute Auto 0.1 K/mm3 (0-0.3); Eosinophils Percent Auto 3.2 % (0-4.4); Hematocrit 37.6 % (37.0-47.0); Hemoglobin 12.1 g/dL (12.0-15.0); Lymphocytes Absolute Auto 1.53 K/mm3 (0.9-3.2); Lymphocytes Percent Auto 40.5 % (18.3-44.2); Mean Corpuscular HGB Conc 32.2 g/dl (32-36); Mean Corpuscular Hemoglobin 27.1 pg (26-34); Mean Corpuscular Volume 84.1 fl (80-100); Mean Platelet Volume 10.5 fl (7.4-10.4); Monocytes Absolute Auto 0.4 K/mm3 (0.1-0.6); Monocytes Percent Auto 9.3 % (2.6-8.5); Neutrophils Absolute Auto 1.7 K/mm3 (1.3-6.7); Neutrophils Percent Auto 45.7 % (45.5-73.1); Platelet Count Result 377 k/mm3 (150-375); Red Blood Count 4.47 M/mm3 (4.2-5.4); Red Cell Distribution Width 11.8 % (11.5-14.5); White Blood Count 3.8 K/mm3 (4.5-10.0)
[2024-07-15 20:53] LABS: Add Urine Microscopic? YES; Appearance Urine Turbid (Clear); Bacteria Urine None Seen /hpf; Bilirubin Urine Negative (Negative); Blood Urine 3+ (Negative); Color Urine Yellow (Yellow); Glucose Urine UA Negative (Negative); Ketones Urine Negative (Negative); Leukocyte Esterase Ur Negative LEU/UL (Negative); Nitrate Urine Negative (Negative); Non Pathogenic Casts 0-2; Protein Urine Trace mg/dL (Negative); Specific Grav Ur 1.026 (1.001-1.035); Squamous Epithelial Cell Urine None Seen /hpf (Few); WBC Urine 0-5 /hpf (0-3)
[2024-07-15 20:59] LABS: Alanine Aminotransferase 20 U/L (6-35); Albumin Level 5.1 g/dL (3.7-5.6); Alkaline Phosphatase 82 U/L (45-116); Anion Gap 4 mmol/L (4-12); Aspartate Amino Transferase 32 U/L (14-36); Bilirubin,Total 0.7 mg/dL (0.2-1.3); Blood Urea Nitrogen 16 mg/dL (8-21); Calcium 9.8 mg/dL (8.9-10.7); Carbon Dioxide 27 mmol/L (22-30); Chloride 106 mmol/L (98-107); Estimated CRCL calculation 70 ml/min; Estimated Glomerular Filt Rate > 60; Glucose 103 mg/dL (65-110); Potassium 4.1 mmol/L (3.4-5.0); Sodium 137 mmol/L (134-143)
[2024-07-15 21:02] LABS: INR 0.9; Prothrombin Time 13.1 Seconds (11.1-14.7)
[2024-07-15 21:03] LABS: Partial Thromboplastin Time 25.8 Seconds (22.3-36.8)
[2024-07-15 22:17] LABS: Beta HCG Quantitative < 2.39 mIU/ML
[2024-07-15 23:24] LABS: Trichomonas Vag PCR NOT DETECTED (NOT DETECTE)
[2024-07-15 23:49] LABS: Chlamydia trachomatis NOT DETECTED (NOT DETECTE); Neisseria gonorrhoeae PCR NOT DETECTED (NOT DETECTE)
== END 2024-07-16 01:06 | disposition home or self-care (01) ==
PROVIDERS: Physician Assistant; Emergency Provider Physician Assistant
DX: N93.8 Other specified abnormal uterine and vaginal bleeding (principal)
CPT/HCPCS: 36415; 80053; 81001; 84702; 85025; 85610; 85730; 87491; 87591; 87661; 99284